=== PATIENT | female | born 1985 | race Caucasian/White ===

== ENCOUNTER 2023-04-25 09:38 | Outpatient (OUT) | payer BC, OTHER, SELFPAY ==
--- NOTE | 2023-04-25 09:44 | US_ITS ---
The [address] [address] Patient Name: RAQUEL BRAR MRN: [id number] date: 1985 Sex: F Assigned Patient Location: Current Patient Location: [facility] Accession/Order Number: [id number] Exam Date: 04/25/2023 09:48 Report Date: 04/25/2023 12:20 At the request of: CHANDRIKA LEE Procedure: US renal bladder EXAM: US renal bladder HISTORY: Acute Cystitis With Hematuria N30.01 COMPARISON: None. TECHNIQUE: Ultrasound of the kidneys and urinary bladder. FINDINGS: The right kidney measures 9.5 x 5.1 x 5.2 cm and contains multiple echogenic foci, largest measuring up to 0.4 cm. The left kidney measures 13.4 x 4.9 x 5.9 cm and contains multiple echogenic foci, largest measuring up to 0.4 cm. This hydronephrosis. The visualized urinary bladder appears normal. Prevoid volume was 454.2 cc. Post void volume was 13.9 cc. US/US renal bladder IMPRESSION: Bilateral nephrolithiasis without hydronephrosis. Electronically authenticated by: GEORGE ADKINS Date: 04/25/2023 12:20
== END 2023-04-25 09:39 | disposition home or self-care (01) ==
LOC: US 09:38
PROVIDERS: PCP Family Medicine; Visit Provider Family Medicine
DX: N20.0 Calculus of kidney (principal); N30.01 Acute cystitis with hematuria
CPT/HCPCS: 74018; 76770

== ENCOUNTER 2023-04-25 10:39 | Outpatient (OUT) | payer BC, OTHER, SELFPAY ==
--- NOTE | 2023-04-25 10:52 | XR_ITS ---
The [address] [address] Patient Name: RAQUEL BRAR MRN: [id number] date: 1985 Sex: F Assigned Patient Location: [facility] Current Patient Location: [facility] Accession/Order Number: [id number] Exam Date: 04/25/2023 11:05 Report Date: 04/25/2023 11:26 At the request of: MARY BALLESTEROS Procedure: XR abdomen 1V EXAM: XR abdomen 1V HISTORY: Kidney Stones N20.0 COMPARISON: None. TECHNIQUE: AP view of the abdomen. FINDINGS: Nonobstructive bowel gas pattern is noted. Multiple surgical jeff are noted across the abdomen. There is no suspicious calcification. The osseous structures are intact. XR/XR abdomen 1V IMPRESSION: Nonobstructive bowel gas pattern. No suspicious renal calcification. Electronically authenticated by: GEORGE ADKINS Date: 04/25/2023 11:26
== END 2023-04-25 10:40 | disposition home or self-care (01) ==
LOC: RAD 10:43
PROVIDERS: PCP Family Medicine; Visit Provider Physician Assistant
DX: N20.0 Calculus of kidney (principal)
CPT/HCPCS: 74018

== ENCOUNTER 2023-05-05 09:28 | Outpatient (OUT) | payer BC, OTHER, SELFPAY ==
--- NOTE | 2023-05-05 09:36 | CT_ITS ---
[address] [address] Patient Name: RAQUEL BRAR MRN: [id number] date: 1985 Sex: F Assigned Patient Location: CT Current Patient Location: Accession/Order Number: [id number] Exam Date: 05/05/2023 10:30 Report Date: 05/06/2023 06:49 At the request of: CHANDRIKA LEE Procedure: CT abdomen pelvis wo con EXAMINATION: CT abdomen pelvis wo con HISTORY: Crohn's Disease K50.90, Abdominal Pain R10.9 ; bilateral flank pain, right greater than left COMPARISON: CT abdomen pelvis 12/22/2021 TECHNIQUE: Axial, Coronal, and Sagittal images were obtained without and/or with IV contrast as indicated by examination type. Dose reduction techniques were achieved by using automated exposure control and/or adjustment of mA and/or kV according to patient size and/or use of iterative reconstruction technique. FINDINGS: LUNG BASES: No visible pulmonary or pleural disease. LIVER: No enlargement, atrophy, suspicious density, or significant focal lesion. BILIARY: Cholecystectomy. PANCREAS: No lesion, fluid collection, or abnormal duct dilatation. SPLEEN: No enlargement or focal lesion. ADRENALS: No mass or enlargement. KIDNEYS: Mild right hydronephrosis and hydroureter without appreciable ureteral stones. Several calcifications within right kidney, largest is within the renal pelvis, 10 mm. Stable mild atrophy/asymmetry of right kidney. BOWEL/MESENTERY: Prior distal small bowel surgery. No visible mass, obstruction, or bowel wall thickening. AORTA/VASCULAR: No aneurysm or dissection. RETROPERITONEUM: No mass or adenopathy. LYMPH NODES: No adenopathy. URINARY BLADDER: No visible focal wall thickening, lesion, or calculus. PELVIC ORGANS: IUD within fundal endometrial cavity. Geographic shaped fluid collection within right lower quadrant lateral to the ovary approximately 7.9 x 6.9 x 2.7 cm. 1.9 cm cyst within right ovary. ABDOMINAL WALL: No mass or hernia. BONES: No bony lesion or fracture. OTHER: Negative. CT/CT abdomen pelvis wo con IMPRESSION: 1. Mild right hydronephrosis and hydroureter without any ureteral or bladder stones at this time; possibly from a recently passed stone. There are nonobstructing stones within the kidney, largest is 10 mm within the renal pelvis. 2. Evidence of prior distal small bowel surgery; no acute bowel findings. 3. Moderate size geographic shaped free fluid collection within right lower quadrant, also seen on prior study suggesting chronic seroma. 4. Right ovary contains a 1.9 cm cyst versus dominant follicle of questionable clinical significance. Electronically authenticated by: ERIC HOBBS Date: 05/06/2023 06:49
== END 2023-05-05 09:29 | disposition home or self-care (01) ==
LOC: CT 09:29
PROVIDERS: PCP Family Medicine; Visit Provider Family Medicine
DX: R10.9 Unspecified abdominal pain (principal); K50.90 Crohn's disease, unspecified, without complications; N13.30 Unspecified hydronephrosis
CPT/HCPCS: 74176

== ENCOUNTER 2023-05-17 10:33 | Outpatient (OUT) | payer BC, OTHER, SELFPAY ==
[2023-05-17 11:06] LABS: Basophils Percent Auto 0.3 % (0.2-2.0); Eosinophils Absolute Auto 0.2 10^3/uL (0.0-0.7); Eosinophils Percent Auto 2.7 % (0.9-7.0); Hematocrit 38.6 % (36.0-48.0); Hemoglobin 12.6 g/dL (12.0-16.0); Immature Granulocytes Abs Auto 0.02 10^3/uL (0.00-0.03); Immature Granulocytes Pct Auto 0.3 % (0.0-0.5); Lymphocytes Absolute Auto 1.9 10^3/uL (1.2-3.8); Lymphocytes Percent Auto 27.6 % (20.5-60.0); Mean Corpuscular HGB Conc 32.6 g/dL (29.9-35.2); Mean Corpuscular Hemoglobin 29.3 pg (26.7-34.0); Mean Corpuscular Volume 89.8 fL (81.0-99.0); Mean Platelet Volume 9.3 fL (9.5-13.5); Monocytes Absolute Auto 0.4 10^3/uL (0.3-0.8); Monocytes Percent Auto 6.6 % (1.7-12.0); Neutrophils Absolute Auto 4.2 10^3/uL (1.4-6.5); Neutrophils Percent Auto 62.5 % (43.0-75.0); Platelet Count 316 10^3/uL (150-450); White Blood Count 6.7 10^3/uL (4.0-11.0)
[2023-05-17 11:15] LABS: INR 0.94; Partial Thromboplastin Time 26.7 sec (22.3-36.2)
[2023-05-17 13:23] LABS: Anion Gap 13.7; BUN Creatinine Ratio 19.3; Calcium 8.8 mg/dL (8.5-10.1); Carbon Dioxide 26.3 mmol/L (21.0-32.0); Chloride 104 mmol/L (98-107); Estimated GFR (African America >60 (>=60); Estimated GFR (Non-African Ame >60 (>=60); Glucose 92 mg/dL (74-106); Sodium 140 mmol/L (136-145)
== END 2023-05-17 10:34 | disposition home or self-care (01) ==
PROVIDERS: PCP Family Medicine; Visit Provider Urology
DX: Z01.812 Encounter for preprocedural laboratory examination (principal); N20.0 Calculus of kidney
CPT/HCPCS: 80048; 85025; 85610; 85730

== ENCOUNTER 2023-05-23 08:39 | Day surgery (SDC) | payer BC, OTHER, SELFPAY ==
[2023-05-17 10:53] VITALS: BP 103/60; PULSE 78; RESP 16; TEMP 36.2; O2SAT 98; BMI 24.3
[2023-05-23] VITALS (10 sets, daily range): BP systolic 92–123; BP diastolic 46–77; PULSE 71–96; RESP 12–22; TEMP 36.1–36.2; O2SAT 96–99; BMI 24.4
[2023-05-23] MEDS: LACTATED RINGER'S SOLUTION 1,000 ML 50 ML IV ×2 (09:12→13:03)
[2023-05-23 09:15] LABS: HCG Qualitative NEGATIVE (NEGATIVE)
[2023-05-23] MEDS: SCOPOLAMINE 1 MG/3 DAYS TRANSDERM PATCH 1 PATCH TD (10:06)
[2023-05-23] MEDS: GENTAMICIN SULFATE 120 MG in 0.9 % SODIUM CHLORIDE 100 ML 206 MG IV (11:01)
[2023-05-23] MEDS: IOHEXOL 300 MG/ML - 50 ML BTL INJ (12:03)
--- NOTE | 2023-05-23 12:41 | P.URON_ITS ---
Urology Surgery Operative Note Operative Note Procedure Date: 05/23/23 Time Out Performed: yes Pre-op Diagnosis: right renal calculi Post-op Diagnosis: same as pre-op Procedures performed: #1. Cystoscopy. #2. Right retrograde pyelogram. #3. Right rigid ureteral dilation. #4. Right ureteroscopy. #5. Right pyeloscopy. #6. Holmium laser lithotripsy of 2, greater than 1 cm right renal calculi. #7. Placement of 6 [place] variable length right ureteral stent Anesthesia: General-LMA Primary Surgeon: Vasile Toribio Complications: non- Estimated blood loss (mL): 5 Findings: no ureteral calculi. 2, one to 2 cm right renal calculi Specimens: non- Indications for Procedures: this lady has a long history of recurrent nephrolithiasis. She was found to have right sided stones at her UPJ and in her ipsilateral kidney. She now presents for cystoscopy, ureteroscopy, stone manipulation and right stent placement. She has signed an informed consent after risks were explained. Detailed description of Procedure: The patient was brought to the operating room and placed on the operating room table in the supine position. SCDs were placed on the lower extremities and turned on and functioning during the entire case. Timeout was done by all parties in the room. We all agreed upon the patient's identification and the planned procedures for this patient. Genn. anesthesia was then administered. The patient was then repositioned into the modified dorsal lithotomy position. All pressure points were satisfactorily padded. Genitalia were sterilely prepped and draped in usual fashion.I started by passing a 22 [place] Olympus cystoscope per urethra and into the bladder. Careful panendoscopy revealed no evidence of any tumors stones or mucosal lesions. While using fluoroscopy I could see stones in her right kidney. I then passed the 8 [place] cone-tipped catheter and cannulated the right ureter. Contrast was injected in a retrograde manner. The ureter lyndsay eared clear. The stones were in the lower pole calyces. I then passed a Glidewire through the scope and passed it into the right ureter up to the right kidney. An 8 and 10 [place] rigid dilator were used to dilate the distal ureter. The scope was removed. I then passed in 05/09 ureteral access sheath over the wire and up the ureter to the L5 level. The wire and stylette were removed. I then passed a flexible ureteroscope into the access sheath and into the ureter. I then ascended up the uretter and then did pyeloscopy. I scoped in the upper mid and lower pole calyces. Her stones were in the 2 lower most calyces. I started in the lowest calyces, this was the largest stone. I then passed a 272 ? holmium laser fiber through the scope and made contact with the stone. While in the dusting mode I started at 7 W and went up to 9 W. I was able to totally dust the stone. Minimal bleeding occurred towards the end. I then went to the upper of the 2 lower pole calyces and similarly dusted this large stone. One could no longer see any stone fluoroscopically. The ureteroscope was removed. I then passed the Glidewire through the access sheath into the kidney and the sheath was then removed. The cystoscope was backloaded over the wire and passed into the bladder. I then slid a 6 [place] variable length ureteral stent over the wire up into the kidney. The wire was removed and there were good curls in the kidney and in the bladder. The bladder was drained of its contents and the scope was removed. She was then transferred to a [facility] bed and wheeled to the PACU in stable condition. She'll be discharged to home with a prescription for Ceftin near 300 mg daily #10.
== END 2023-05-23 13:31 | disposition home or self-care (01) ==
PROVIDERS: PCP Family Medicine; Visit Provider Urology
PROC: (CPT 918; principal; 2023-05-23 09:55)
DX: N13.2 Hydronephrosis with renal and ureteral calculous obstruction (principal); D64.9 Anemia, unspecified; I25.10 Atherosclerotic heart disease of native coronary artery without angina pectoris; Z86.718 Personal history of other venous thrombosis and embolism; K58.9 Irritable bowel syndrome, unspecified; Z87.442 Personal history of urinary calculi; N18.9 Chronic kidney disease, unspecified; Z87.440 Personal history of urinary (tract) infections; Z22.358 Carrier of other Enterobacterales; Z90.49 Acquired absence of other specified parts of digestive tract; R35.0 Frequency of micturition; N32.89 Other specified disorders of bladder; Z79.899 Other long term (current) drug therapy; K21.9 Gastro-esophageal reflux disease without esophagitis; I12.9 Hypertensive chronic kidney disease with stage 1 through stage 4 chronic kidney disease, or unspecified chronic kidney disease
CPT/HCPCS: 52356; 36415; 74420; 84703; 99999; J2704; Q9967

== ENCOUNTER 2023-07-19 13:07 | Outpatient (OUT) | payer BC, OTHER, SELFPAY ==
--- OUTSIDE RECORDS SUMMARY | 2023-07-19 13:13 | XMS_ITS | CCD ---
Author Name Unknown Address [id number] [place] [address] Organization [facility] Care Team Providers Care [facility] Name Role Phone Chandrika Lee Primary Care Provider Chandrika Lee Primary Care Physician MD Chandrika Lee Primary Care Provider DO Dominik Vanegas Emergency Provider DO Jaime Rodriguez Emergency Provider MD Jessica Akhtar Admit Provider MD Jessica Akhtar Attending Provider MD Be Azul Other Provider MD Chandrika Lee Primary Care Provider DO Dominik Vanegas Emergency Provider [phone] DO Jaime Rodriguez Emergency Provider MD Jessica Akhtar Admit Provider [phone] MD Jessica Akhtar Attending Provider MD Be Azul Other Provider MELONY Hu Emergency Provider MD Jarad Mcmillan Admit Provider MD Finn Vo Other Provider MD Noman Armando Emergency Provider MD Chandrika Lee Attending Provider MD Be Azul Attending Provider MD Chandrika Lee Primary Care Provider [phone] MD Jessica Akhtar Attending Provider [phone] MD Be Azul Other Provider DO Carter Lewis Attending Provider Chandrika Lee Unavailable Unavailable Unavailable MD Chandrika Lee Primary Care Provider [phone] Perlita Lawrence Referring Unavailable Hoderik, Dr. Chandrika Tineo Primary Care Unavail able Perlita Lawrence Attending Unavailable Perlita Lawrence Referring Unavailable Hoderik, Dr. Chandrika Tineo Primary Care Unavail able Perlita Lawrence Attending Unavailable PERLITA LAWRENCE Attending Unavailable Hoy, Dr. Chandrika Tineo Primary Care Unavail able HOY ., DR COBOS Primary Care Unavailable SCHRADER ., DR ARAUJO Admitting Unavailable SCHRADER ., DR ARAUJO Attending Unavailable HOY ., DR COBOS Primary Care Unavailable HOY ., DR COBOS Consulting Unavailable HOY ., DR COBOS Attending Unavailable HOY ., DR COBOS Admbrianna Unavailable SCHRADER ., DR ARAUJO Admitting Unavailable HOY ., DR COBOS Consulting Unavailable HOY ., DR COBOS Primary Care Unavailable SCHRADER ., DR ARAUJO Attending Unavailable SCHRADER ., DR ARAUJO Consulting Unavailable HOY ., DR COBOS Consulting Unavailable HOY ., DR COBOS Attending Unavailable HOY ., DR COBOS Admitting Unavailable HOY ., DR COBOS Primary Care Unavailable HAY ., DR BERGMAN Consulting Unavailable AKSHAT CORBETT Consulting Unavailable HOY ., DR COBOS Primary Care Unavailable SCHRADER ., DR ARAUJO Admitting Unavailable SCHRADER ., DR ARAUJO Consulting Unavailable SCHRADER ., DR ARAUJO Attending Unavailable WEST, DR DEVYN Nunn Consulting Unavailable DEV GALLEGOS Consulting Unavailable ERIC GARCIA Consulting Unavailable TISH KENDALL Admitting Unavailable TISH KENDALL Attending Unavailable HOY ., DR COBOS Primary Care Unavailable WEST, DR DEVYN Nunn Consulting Unavailable TISH KENDALL Attending Unavailable TISH KENDALL Admitting Unavailable HOY ., DR COBOS Primary Care Unavailable TISH KENDALL Consulting Unavailable HOY ., DR COBOS Primary Care Unavailable HOY ., DR COBOS Consulting Unavailable HOY ., DR COBOS Attending Unavailable HOY ., DR COBOS Admitting Unavailable HOY ., DR COBOS Primary Care Unavailable HOY ., DR COBOS Consulting Unavailable HOY ., DR COBOS Attending Unavailable HOY ., DR COBOS Admitting Unavailable HOY ., DR COBOS Primary Care Unavailable SCHRADER ., DR ARAUJO Admitting Unavailable SCHRADER ., DR ARAUJO Consulting Unavailable SCHRADER ., DR ARAUJO Attending Unavailable [place], DR DEVYN Nunn Consulting Unavailable Semaskiene, Jessica Admitting Unavailable SemaskieneJessica Attending Unavailable Hoy, Chandrika M Primary Care Unavailable BrianBe guerrero R Consulting Unavailabl e Hoy, Chandrika M Primary Care Unavailable Hoy, Chandrika M Attending Unavailable Hoy, Chandrika M Admitting Unavailable LaffaCarter more Attending Unavailable Hoy, Chandrika M Primary Care Unavailable Laffaderik, Carter Admitting Unavailable Hoy, Chandrika M Primary Care Unavailable Carter Lewis Admitting Unavailable Carter Lewis Attending Unavailable Carter Lewis Attending Unavailable Gagany, Chnadrika M Primary Care Unavailable Carter Lewis Admitting Unavailable Be Azul Attending Unavailabl e Hoy, Chandrika M Primary Care Unavailable Be Azul Admitting Unavailabl e Hoy, Chandrika M Primary Care Unavailable Van Rosen Admitting Unavailable TobypaVan Attending Unavailable Hoy, Chandrika M Primary Care Unavailable Noman Armando Admitting Unavailable Noman Armando Attending Unavailable Hoy, Chandrika M Primary Care Unavailable Dominik Vanegas Admitting Unavailable Dominik Vanegas Attending Unavailable SandeepskgurpreeteJessica Attending Unavailable Hoy, Chandrika M Primary Care Unavailable Jessica Akhtar Admitting Unavailable Jessica Akhtar Attending Unavailable Finn Vo Consulting Unavailable Hoy, Chandrika M Primary Care Unavailable Jarad Mcmillan Admitting Unavailable Be Azul Consulting UnavailMELONY Portillo Attending UnavailMELONY Gardner Attending Unavailab MELONY Sage Attending Unavailab MELONY Sage Admitting Unavailab Van Linder Attending Unavailable Van SCHRADER Attending Unavailable Van SCHRADER Attending Unavailable MELONY KENDALL Attending Unavailab le Allergies Allergy Classification Reported Allergen(s) Allergy Type Date of Onset Reaction(s) Facility Opioid Agonists (2 sources) Morphine Drug Allergy 4 Vomiting [facility] (11 sources) Amoxicillin / Clavulanate; Translations: [amoxicillin-clav ulanate] Drug Allergy Unknown (qualifier value) [facility] (6 sources) iron polysaccharide; Translations: [iron polysaccharide] Drug Allergy Unknown (qualifier value) [facility] (15 sources) levoFLOXacin; Translations: [levofloxacin] Drug Allergy 2 Eruption (morphologic abnormality), Unknown (qualifier value) [facility] (15 sources) Morphine; Translations: [morphine] Drug Allergy 2 Unknown (qualifier value) [facility] (20 sources) traMADol; Translations: [tramadol] Drug Allergy 2 Unknown (qualifier value) [facility] (10 sources) Amoxicillin; Translations: [amoxicillin] Drug Allergy 2 Diarrhea [facility] (10 sources) Clavulanate; Translations: [clavulanic acid] Drug Allergy 2 [facility] (10 sources) Sodium ferric gluconate complex; Translations: [sodium ferric gluconate complex] Drug Allergy 2 [facility] (10 sources) Sucrose; Translations: [sucrose] Drug Allergy 2 [facility] (8 sources) Vancomycin; Translations: [vancomycin] Drug Allergy 2 natalie [facility] (6 sources) Vancomycin Cross Reactors; Translations: [Vancomycin Cross Reactors] Allergy to drug (finding) [facility] 250 DO Work Phone: (5 sources) Iron Dextran SOLN; Translations: [Iron Dextran SOLN] Allergy to drug (finding) [facility] 250 DO Work Phone: (1 source) Amoxicillin / Clavulanate Drug Allergy 7 [facility] (2 sources) levoFLOXacin Drug Allergy 7 [facility] (2 sources) Morphine Drug Allergy [facility] (2 sources) NSAIDs Drug allergy (disorder) 7 [facility] (2 sources) traMADol Drug Allergy 7 [facility] (1 source) Nikunj-Iron Drug allergy (disorder) 0 [facility] (1 source) levoFLOXacin Drug Allergy 3 [facility] (1 source) Morphine Drug Allergy 3 [facility] (1 source) traMADol Drug Allergy 3 [facility] Medications Current Medications Medication Drug Class(es) Dates Sig (Normalized) Sig (Original) acetaminophen 250 mg / aspirin 250 mg / caffeine 65 mg oral tablet (9 sources) Platelet Aggregation Inhibitor, Nonsteroidal Anti-inflammatory Drug, Central Nervous System Stimulant, Methylxanthine Start: 07-29-2019 Aspirin-Acetamin ophen-Caffeine (Excedrin Migraine) 250-250-65 mg Tablet Active 1 TAB PO As Directed July 29, 2019 12:00am acetaminophen 325 mg / HYDROcodone bitartrate 5 mg oral tablet (18 sources) Opioid Agonist Start: 08-09-2022 take 1 tablet by mouth every four hours Hydrocodone-Acet aminophen Active 1 TAB PO Q4H 42 7 August 09, 2022 Start: 08-02-2022 take 2 tablets by mo uth every six hours Hydrocodone-Acetaminophen Active 2 TAB P O Q6H 40 7 August 17, 2022 Start: 05-30-2022 take 1 tablet by aguilar th twice daily Hydrocodone-Acetaminophen Active 1 TAB P O Twice daily May 30, 2022 12:00am Start: 04-10-2017 End: 05-12-2022 take 1 tablet by mouth twice daily Hydrocodone-Acetaminophen ([place]) 5-325 mg Tablet Discontinued 1 TAB PO Twice daily April 09, 2017 11:00pm May 12, 2022 4:21pm Start: 04-10-2017 take 1 tablet by aguilar th every four hours Hydrocodone-Acetaminophen ([place]) 5-325 mg Tablet Active 1 TAB PO Q4H April 10, 2017 12:00am cefdinir 300 mg oral capsule (12 sources) Cephalosporin Antibacterial Start: 01-31-2021 End: 02-17-2021 take 300 mg by mouth twice daily cefdinir 300 mg, Oral, BID Start Date: 02/04/21 Status: Ordered cholestyramine resin 4000 mg powder for oral suspension (8 sources) Bile Acid Sequestrant Start: 05-12-2022 End: 07-19-2022 take 1 dose by mouth once daily Cholestyramine (With Sugar) Active 4 GM PO Daily July 19, 2022 3:36pm administer w/meal; avoid other meds within 1hr before or 4-6hr after dose cyproheptadine hydrochloride 4 mg oral tablet (20 sources) Start: 04-10-2017 take 1 tablet by mouth twice daily cyproheptadine 4 mg Tab 4 mg = 1 tab(s), Oral, BID Start Date: 02/04/21 Status: Ordered D-Mannose (9 sources) Start: 03-27-2022 take 1500 mg by mouth twice daily D-Mannose Active 1500 MG PO Twice daily March 26, 2022 11:00pm Start: 03-27-2022 take 1500 mg by mout h twice daily D-Mannose Active 1500 MG PO Twice daily March 27, 2022 12:00am dibucaine 0.01 mg/mg rectal ointment (1 source) Standardized Chemical Allergen Start: 08-17-2022 Dibucaine Active 1 APPLIC AZ Three times daily August 17, 2022 12:00am dicyclomine hydrochloride 20 mg oral tablet (20 sources) Anticholinergic Start: 04-25-2019 take 20 mg by mouth twice daily Bentyl 20 mg, Oral, BID Start Date: 02/04/21 Status: Ordered 24 hr ferrous sulfate 142 mg extended release oral tablet (16 sources) Start: 04-01-2022 Ferrous Sulfat e (Slow Fe) 142 mg (45 mg iron) tablet extended release Active 284 MG PO Every 48 hours March 31, 2022 11:00pm Start: 07-29-2019 End: 04-02-2022 take 1 tablet by mouth twice daily Ferrous Sulfate (Iron) 325 mg (65 mg iron) Tablet Discontinued 325 MG PO Twice daily July 29, 2019 12:00am April 02, 2022 1:26pm FLUoxetine 40 mg oral capsule (20 sources) Serotonin Reuptake Inhibitor Start: 04-10-2017 take 1 capsule by mouth once daily Prozac 40 mg Cap 40 mg = 1 cap(s), Oral, Daily Start Date: 02/04/21 Status: Ordered folic acid 1 mg oral tablet (5 sources) Start: 02-04-2021 take 1 tablet by mouth once daily folic acid 1 mg Tab 1 mg = 1 tab(s), Oral, Daily Start Date: 02/04/21 Status: Ordered hyoscyamine sulfate 0.125 mg oral tablet (12 sources) Start: 02-04-2021 take 0.125 mg by mouth twice daily Anaspaz 0.125 mg, Oral, BID Start Date: 02/04/21 Status: Ordered Start: 01-21-2021 End: 02-17-2021 take 2 tablets under the tongue every twelve hours Hyoscyamine Sulfate (Anaspaz) 0.125 mg Tablet,Disintegrating Discontinued 0.25 MG SUBLINGUAL Q12H January 20, 2021 11:00pm February 17, 2021 2:10pm Iron 100 Plus (5 sources) Start: 02-04-2021 Iron 100 Plus Oral, Daily, Refill(s) 0 Start Date: 02/04/21 Status: Ordered L. Gasseri-B. Bifidum-B Long um ([facility]) 1.5 billion cell Capsule (9 sources) Start: 04-10-2017 L. Gasseri-B. Bifidum-B Longum ([facility]) 1.5 billion cell Capsule Active 1.5 TAB PO Daily April 09, 2017 11:00pm Start: 04-10-2017 L. Gasseri-B. Bifidum-B Longum ([facility]) 1.5 billion cell Capsule Active 1.5 TAB PO Daily April 10, 2017 12:00am lidocaine 0.05 mg/mg topical ointment (1 source) Antiarrhythmic, Amide Local Anesthetic Start: 08-09-2022 Lidocaine Active 1 APPLIC TOPICAL Twice daily August 09, 2022 12:00am loperamide hydrochloride 2 mg oral capsule (8 sources) Opioid Agonist Start: 05-12-2022 End: 07-19-2022 take 2 mg by mouth every three hours Loperamide Active 2 MG PO Q3H July 19, 2022 3:36pm magnesium oxide 400 mg oral tablet (8 sources) Start: 03-31-2022 take 400 mg by mouth once daily Magnesium Oxide Active 400 MG PO Daily March 30, 2022 11:00pm Multivitamin preparation (9 sources) Start: 03-27-2022 take 1 tablet by mouth twice daily Multivitamin Active 1 TAB PO Twice daily March 26, 2022 11:00pm Start: 03-27-2022 take 1 tablet by aguilar th twice daily Multivitamin Active 1 TAB PO Twice daily March 27, 2022 12:00am omeprazole 40 mg oral tablet (12 sources) Proton Pump Inhibitor Start: 02-04-2021 take 40 mg by mouth once daily Prilosec 40 mg, Oral, Daily Start Date: 02/04/21 Status: Ordered Start: 01-29-2021 End: 04-02-2022 take 40 mg by mouth once daily Omeprazole Discontinued 40 MG PO Daily January 28, 2021 11:00pm April 02, 2022 1:26pm 24 hr oxybutynin chloride 10 mg extended release oral tablet (3 sources) Cholinergic Muscarinic Antagonist Start: 02-04-2021 take 1 tablet by mouth once daily oxybutynin 10 mg ER Tab 10 mg = 1 tab(s), Oral, Daily, # 30 tab(s), Refills(s) 0, Pharmacy: [facility] [id number], 160, cm, 02/04/21 15:55:00 EDT, Height/Length Dosing, 57.3, kg, 02/04/21 15:55:00 EDT, Weight Dosing Start Date: 02/04/21 Status: Ordered [employer] (5 sources) Start: 02-04-2021 [employer] Oral, Daily, Refill(s) 0 Start Date: 02/04/21 Status: Ordered Potassium Acetate (5 sources) Start: 12-08-2021 potassium acet ate Refills(s) 0 Start Date: 12/08/21 Status: Ordered potassium chloride 20 meq oral tablet (20 sources) Start: 10-06-2022 Potassium Chlo ride (Eqv-K-Tab) 20 mEq oral tablet, extended release Refills(s) 0 Start Date: 10/06/22 Status: Ordered Start: 03-31-2022 take 1 tablet by aguilar th twice daily Potassium Chloride ER 20 MEQ Oral Tablet Extended Release Take 1 tablet twice daily Quantity: 180 Refills: 3 Ordered: 29-Jun-2022 DO Start : 29-Jun-2022 Active Start: 02-02-2021 End: 07-15-2021 take 20 mEq by mouth once daily Potassium Chloride Dis continued 20 MEQ PO Daily February 01, 2021 11:00pm July 15, 2021 8:11am SUMAtriptan 100 mg oral tablet (14 sources) Serotonin-1b and Serotonin-1d Receptor Agonist Start: 02-04-2021 take 100 mg by mouth once Imitrex 100 mg, Oral, Once Start Date: 02/04/21 Status: Ordered Start: 01-30-2021 take 1 tablet by aguilar th every two hours Sumatriptan Succinate (Imitrex) 100 mg tablet Active 100 MG PO As Directed January 29, 2021 11:00pm Take 1 tablet by mouth at onset of headache; may repeat 1 tablet in 2 hours if needed Vitamin B Complex oral capsule (5 sources) Start: 02-04-2021 Vitamin B Comp navneet oral capsule Oral, Daily, Refill(s) 0 Start Date: 02/04/21 Status: Ordered vitamin b12 1 mg/ml injectable solution (16 sources) Vitamin B12 Start: 04-01-2022 End: 07-19-2022 Cyanocobalamin (Vitamin B-12) Active 1000 MCG IM every month July 19, 2022 3:36pm 1000 mcg IM daily x5 days then q. weekly x4 weeks then q. monthly Vitamin Deficien cy System-B12 1000 MCG/ML Injection Kit once weekly Quantity: 0 Refills: 0 Ordered: 26-Jul-2022 DO Active Completed/Discontinued Medications Medication Drug Class(es) Dates Sig (Normalized) Sig (Original) cephalexin 250 mg oral capsule (20 sources) Cephalosporin Antibacterial Start: 10-06-2022 take 1 tablet by mouth once Keflex 250 mg Cap 250 mg = 1 cap(s), Oral, Once, 1 tab after sexual activity, # 15 tab(s), Refills(s) 3, Pharmacy: [id number], 160, cm, 10/06/22 14:54:00 EDT, Height/Length Dosing, 58, kg, 10/06/22 14:54:00 EDT, Weight Dosing Start Date: 10/06/22 Status: Ordered Start: 05-30-2022 End: 06-14-2022 take 1000 mg by mouth twice daily Cephalexin Discontinued 1000 MG PO Twice daily 21 01May 30, 2022 12:00am June 14, 2022 1:49pm Start: 03-27-2022 End: 03-31-2022 take 500 mg by mouth twice daily Cephalexin Discontinued 500 MG PO Twice daily 15 04March 26, 2022 11:00pm March 31, 2022 12:17pm Start: 10-24-2021 End: 03-27-2022 take 1000 mg by mouth twice daily Cephalexin Discontinued 1000 MG PO Twice daily 21 01October 23, 2021 11:00pm March 27, 2022 12:05pm eluxadoline 100 mg oral tablet (9 sources) mu-Opioid Receptor Agonist Start: 04-10-2017 End: 04-25-2019 take 1 tablet by mouth twice daily Eluxadoline (Viberzi) 100 mg Tablet Discontinued 100 MG PO Twice daily April 09, 2017 11:00pm April 25, 2019 5:13pm ertapenem 1000 mg injection (7 sources) Penem Antibacterial Start: 04-02-2022 End: 05-09-2022 take 1 g intravenously once daily Ertapenem (Invanz) 1 gram Recon Soln Discontinued 1 GM IV Daily April 01, 2022 11:00pm May 09, 2022 2:33pm 21 day ethinyl estradiol 0.218834 mg/hr / etonogestrel 0.005 mg/hr vaginal system (1 source) Progestin, Estrogen Start: 08-30-2006 End: 07-10-2013 NUVARING 0.12 MG -0.015 MG/24 HR VAGINAL Indications: Unspecified contraceptive management Use as directed 0 0 08/30/2006 07/10/2013 Discontinued Comment on above: Use as directed Fosfomycin Tromethamine (5 sources) Start: 05-12-2022 End: 05-30-2022 take 3 g by mouth once Fosfomycin Tromethamine Discontinued 3 GM PO Once May 12, 2022 12:00am May 30, 2022 1:29pm administer 3 hours before surgery/procedure hydrocortisone acetate 25 mg rectal suppository (5 sources) Corticosteroid Start: 05-12-2022 End: 05-30-2022 Hydrocortisone Acetate Discontinued 25 MG AZ Twice daily 14 03May 12, 2022 12:00am May 30, 2022 1:29pm lactobacillus acidophilus 16 mg oral capsule (6 sources) Acidophilus Oral Capsule TAKE DIRECTED. Quantity: 0 Refills: 0 Ordered: 26-Jul-2022 DO Active methylPREDNISolone 4 mg oral tablet (9 sources) Corticosteroid Start: 03-27-2022 End: 04-02-2022 take 1 tablet by mouth once Methylprednisolone (Medrol (Ryne)) 4 mg tablets,dose pack Discontinued 0 PO .COMPLEX March 26, 2022 11:00pm April 02, 2022 1:26pm orally per package directions, Started Tuesday, should end Tuesday metoprolol tartrate 50 mg oral tablet (20 sources) beta-Adrenergic Tino Start: 06-29-2022 take 1 tablet by mouth once daily Metoprolol Tartrate 50 MG Oral Tablet TAKE 1 TABLET EVERY 12 HOURS DAILY. Quantity: 180 Refills: 3 Ordered: 29-Jun-2022 DO Start : 29-Jun-2022 Active Start: 01-20-2021 take 1 tablet by aguilar th twice daily Metoprolol tartrate 50 mg Tab 50 mg = 1 tab(s), Oral, BID Start Date: 02/04/21 Status: Ordered Start: 04-10-2017 End: 01-20-2021 take 50 mg by mouth twice daily Metoprolol Succinate Discontinued 50 MG PO Twice daily April 09, 2017 11:00pm January 20, 2021 11:02am nitrofurantoin, macrocrystals 25 mg / nitrofurantoin, monohydrate 75 mg oral capsule (20 sources) Nitrofuran Antibacterial Start: 03-30-2022 End: 04-02-2022 take 1 capsule by mouth twice daily at mealtime Nitrofurantoin Monohyd Macro 100 MG Oral Capsule take 1 capsule by mouth twice a day WITH A MEAL or FOOD Quantity: 14 Refills: 0 Ordered: 30-Mar-2022 DO Start : 30-Mar-2022 Active ondansetron 8 mg disintegrating oral tablet (20 sources) Serotonin-3 Receptor Antagonist Start: 10-24-2021 End: 03-31-2022 take 8 mg by mouth every eight hours Ondansetron Discontinued 8 MG PO Q8H 10 October 23, 2021 11:00pm March 31, 2022 12:21pm Start: 02-04-2021 take 1 tablet by aguilar th every eight hours Zofran 4 mg Tab 4 mg = 1 tab(s), Oral, q8hr Start Date: 02/04/21 Status: Ordered Start: 01-20-2021 take 8 mg by mouth e very four to six hours Ondansetron Active 8 MG PO EVERY 4-6 HOURS January 19, 2021 11:00pm Start: 01-20-2021 take 4 mg by mouth e very four to six hours Ondansetron Active 4 MG PO EVERY 4-6 HOURS January 20, 2021 12:00am promethazine hydrochloride 25 mg oral tablet (9 sources) Phenothiazine Start: 07-15-2021 End: 03-27-2022 take 25 mg by mouth three times daily Promethazine Discontinued 25 MG PO Three times daily 14 01July 15, 2021 12:00am March 27, 2022 12:07pm rivaroxaban 15 mg oral tablet (18 sources) Factor Xa Inhibitor Start: 07-29-2019 End: 01-19-2021 Rivaroxaban (Xarelto) 15 mg tablet Discontinued 20 MG PO Daily July 29, 2019 7:02am January 19, 2021 12:52pm Start: 04-25-2019 End: 07-29-2019 Rivaroxaban (Xarelto) 15 mg tablet Discontinued 15 MG PO Twice daily 42 April 24, 2019 11:00pm July 29, 2019 7:02am must administer with a meal/food for 21 days. Talk with your Doctor about dosing after 21 days rizatriptan 10 mg oral tablet (9 sources) Serotonin-1b and Serotonin-1d Receptor Agonist Start: 07-29-2019 End: 02-17-2021 Rizatriptan Discontinued 10 MG PO As Directed July 29, 2019 12:00am February 17, 2021 10:47am take on tablet by mouth at onset of headache, may repeat one tab in 2 hours if needed. max of 2 tabs in 24 hours sulfamethoxazole 800 mg / trimethoprim 160 mg oral tablet (9 sources) Dihydrofolate Reductase Inhibitor Antibacterial, Sulfonamide Antimicrobial Start: 01-21-2021 End: 02-02-2021 take 1 tablet by mouth twice daily Sulfamethoxazole- Trimethoprim Discontinued 1 TAB PO Twice daily 19 06January 20, 2021 11:00pm February 02, 2021 7:37am vancomycin 125 mg oral capsule (7 sources) Glycopeptide Antibacterial Start: 04-01-2022 End: 05-09-2022 take 125 mg by mouth four times daily Vancomycin Discontinued 125 MG PO Four times daily 56 March 31, 2022 11:00pm May 09, 2022 2:33pm Problems Active Problems Problem Classification Problem Date Documented Date Episodic/Chronic Abdominal pain (5 sources) Flank pain 04-06-2021 Episodic Bacterial infection; unspecified site (2 sources) Unspecified Escherichia coli [E. coli] as the cause of diseases classified elsewhere; Translations: [Other specified bacterial agents as the cause of diseases classified elsewhere] Onset: 04-21-20 Episodic Biliary tract disease (5 sources) Gallstone 02-04-2021 Episodic Calculus of urinary tract (20 sources) Kidney stone; Translations: [Calculus of kidney] Onset: 01-08-2002-04-2021 Episodic Cardiac dysrhythmias (7 sources) Other specified cardiac arrhythmias; Translations: [Other specified cardiac dysrhythmias] Onset: 03-25-2003-25-2005 Chronic Cardiac dysrhythmias (20 sources) Tachycardia; Translations: [Palpitations] Onset: 10-02-1902-04-2021 Episodic Chronic kidney disease (6 sources) Chronic kidney disease; Translations: [Chronic kidney disease, unspecified] Onset: 01-09-2002-04-2021 Chronic Deficiency and other anemia (20 sources) Anemia; Translations: [Anemia, unspecified] 02-04-2021 Episodic Diseases of white blood cells (1 source) Elevated white blood cell count, unspecified; Translations: [ELEVATED WHITE BLOOD CELL COUNT UNS] Onset: 11-25-19 Chronic Essential hypertension (1 source) Essential (primary) hypertension; Translations: [ESSENTIAL PRIMARY HYPERTENSION] Onset: 11-25-19 Chronic Fever of unknown origin (18 sources) Fever; Translations: [Fever, unspecified] 01-29-2021 Episodic Fluid and electrolyte disorders (20 sources) Hypokalemia; Translations: [Hypokalemia] Onset: 05-09-2003-27-2022 Episodic Headache; including migraine (14 sources) Headache; Translations: [Headache] 02-04-2021 Episodic Nausea and vomiting (9 sources) Nausea and vomiting; Translations: [Nausea with vomiting, unspecified] 10-24-2021 Episodic Other aftercare (9 sources) Drug therapy finding; Translations: [oysterman (current) use of anticoagulants] 07-29-2019 Episodic Other aftercare (1 source) Other correction (current) drug therapy; Translations: [OTH CUSTODIAL CURRENT DRUG THERAPY] Onset: 11-25-19 Episodic Other and ill-defined heart disease (5 sources) Heart disease 02-04-2021 Chronic Other diseases of kidney and ureters (5 sources) Hydronephrosis due to ureteral obstruction 02-04-2021 Episodic Other diseases of kidney and ureters (9 sources) Hydroureteronephrosis ; Translations: [Unspecified hydronephrosis] 01-19-2021 Episodic Other gastrointestinal disorders (14 sources) Irritable bowel syndrome; Translations: [Irritable bowel syndrome without diarrhea] 02-04-2021 Chronic Other nervous system disorders (1 source) Acute postoperative pain; Translations: [Other acute postprocedural pain] 08-09-2022 Episodic Other nutritional; endocrine; and metabolic disorders (1 source) Intestinal disaccharidase deficiency; 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, unspecified] Onset: 10-29-19 04 10-29-2003 Chronic Other nutritional; endocrine; and metabolic disorders (1 source) Hypomagnesemia; Translations: [HYPOMAGNESEMIA] Onset: 11-25-19 Chronic Phlebitis; thrombophlebitis and thromboembolism (15 sources) H/O: thrombosis; Translations: [Deep venous thrombosis] Onset: 11-25-1902-04-2021 Episodic Poisoning by other medications and drugs (1 source) Poisoning by unspecified narcotics, accidental (unintentional), initial encounter; Translations: [POISON UNS NARCOTIC ACC INITIAL ENC] Onset: 11-25-19 Episodic Regional enteritis and ulcerative colitis (20 sources) Crohn's disease; Translations: [Crohn's disease, unspecified, without complications] Onset: 11-25-1902-04-2021 Chronic Residual codes; unclassified (6 sources) History of excision of intestinal structure; Translations: [Personal history of surgery to other organs] Episodic Residual codes; unclassified (6 sources) History of colectomy; Translations: [Other postprocedural status] Episodic Residual codes; unclassified (6 sources) History of excision of small intestine; Translations: [Personal history of surgery to other organs] Episodic Residual codes; unclassified (6 sources) History of clinical finding in subject; Translations: [Personal history of other specified diseases] Episodic Residual codes; unclassified (6 sources) Body mass index 20-24 - normal; Translations: [Body Mass Index between 19-24, adult] Episodic Residual codes; unclassified (2 sources) History of surgical procedure on vein; Translations: [Other specified postprocedural states] 08-02-2022 Episodic Residual codes; unclassified (3 sources) Transient alteration of awareness; Translations: [TRANSIENT ALTERATION OF AWARENESS] Onset: 11-16-19 Episodic Residual codes; unclassified (1 source) Acquired absence of other specified parts of digestive tract; Translations: [ACQ ABSENCE OTH PART DIGESTV TRACT] Onset: 11-25-19 Episodic Septicemia (except in labor) (9 sources) Sepsis; Translations: [Sepsis, unspecified organism] 01-19-2021 Episodic Spondylosis; intervertebral disc disorders; other back problems (9 sources) Backache; Translations: [Dorsalgia, unspecified] 07-15-2021 Episodic Syncope (6 sources) Syncope; Translations: [Syncope and collapse] Onset: 10-02-19 Episodic Unclassified (5 sources) Extended spectrum beta-lactamase producing bacteria carrier Onset: 04-06-2004-09-2021 Comment on above: ESBL E coli in urine 04/06/2021 Unclassified (1 source) Poisoning by unspecified narcotics, accidental (unintentional), initial encounter; Translations: [Poisoning by unspecified narcotics, accidental (unintentional), initial encounter] Onset: 11-16-19 Unclassified (1 source) Encounter for preprocedural laboratory examination; Translations: [Encounter for preprocedural laboratory examination] Onset: 07-19-19 Unclassified (1 source) Hemorrhage of anus and rectum; Translations: [Hemorrhage of anus and rectum] Onset: 06-14-20 Unclassified (1 source) Fever, unspecified; Translations: [Fever, unspecified] Onset: 05-30-20 Urinary tract infections (20 sources) Urinary tract infectious disease; Translations: [Urinary tract infection, site not specified] Onset: 12-09-19 Episodic Urinary tract infections (1 source) Urinary tract infections; Translations: [Urinary tract infection, site not specified] Onset: 04-06-20 Viral infection (9 sources) Disease caused by 2019-nCoV; Translations: [COVID-19] 07-15-2021 Episodic Past or Other Problems Problem Classification Problem Date Documented Da te Episodic/Chronic Acute posthemorrhagic anemia (10 sources) Acute posthemorrhagic anemia; Translations: [Acute posthemorrhagic anemia] Onset: 05-09-2022 05-09-2022 Episodic Conditions associated with dizziness or vertigo (1 source) Dizziness and giddiness; Translations: [Dizziness and giddiness] Onset: 03-27-2022 Episodic Deficiency and other anemia (15 sources) Anemia, unspecified; Translations: [Anemia, unspecified] Onset: 01-07-2022 03-31-2022 Episodic Gastrointestinal hemorrhage (20 sources) Rectal hemorrhage; Translations: [Hemorrhage of anus and rectum] Onset: 05-09-2022 07-29-2019 Episodic Genitourinary symptoms and ill-defined conditions (10 sources) Decreased urine output; Translations: [Anuria and oliguria] Onset: 01-08-2022 07-15-2021 Episodic Hemorrhoids (9 sources) Internal hemorrhoids; Translations: [Other hemorrhoids] Onset: 05-09-2022 05-12-2022 Episodic Intestinal infection (12 sources) Clostridium difficile colitis; Translations: [Enterocolitis due to Clostridium difficile, not specified as recurrent] Onset: 03-31-2022 04-01-2022 Episodic Other complications of ; puerperium affecting management of mother (2 sources) Complication occurring during ; Translations: [Maternal care for other (suspected) abnormality and damage, not applicable or unspecified] Onset: 03-22-2013 03-22-2013 Episodic Other complications of ; puerperium affecting management of mother (1 source) Abnormality of heart; Translations: [Maternal care for other (suspected) abnormality and damage, not applicable or unspecified] Onset: 03-22-2013 03-22-2013 Episodic Other complications of (1 source) growth restriction; Translations: [Maternal care for other known or suspected poor growth, unspecified trimester, not applicable or unspecified] Onset: 07-10-2013 07-10-2013 Episodic Other gastrointestinal disorders (1 source) Personal history of other diseases of the digestive system; Translations: [Personal history of other diseases of the digestive system] Onset: 08-17-2022 Episodic Other nervous system disorders (1 source) Other acute postprocedural pain; Translations: [Other acute postprocedural pain] Onset: 08-02-2022 Episodic Residual codes; unclassified (1 source) Other specified postprocedural states; Translations: [Other specified postprocedural states] Onset: 08-17-2022 Episodic Unclassified (5 sources) Never smoked tobacco; Translations: [Never a smoker] Results Test Name Value Interpretation Reference Range Facility Operative Reporton 3 Operative Report [id number]#1.00TIFF [facility] Consent for Procedure/Surger yon 05-26-2023 Consent for Procedure/Surgery [id number]#1.00TIFF [facility] Provider Letteron 05-26-2023 Provider Letter (Inserted Image. Rajni ble to display) May 26, 2023 RAQUEL CORREA [address] [place] [address] : 1985 To Whom It May Concern, Please excuse above patient from work. Date of Illness: From: 05/23/2023 To: 05/27/2023 May Return to Work On: 05/28/2023 Restrictions: None Comments: Patient had a surgical procedure done on 05/23/[address] Van Schrader. She may return to work 05/28/2303 without restrictions. Sincerely, Executive Urology Specialist [facility] Lab Reportson 05-24-2023 Lab Reports [id number]#1.00TIFF [facility] Operative Reporton 3 Operative Report [id number]#1.00TIFF [facility] Lab Reportson 05-23-2023 Lab Reports [id number]#1.00TIFF [facility] Consent for Procedure/Surger yon 05-13-2023 Consent for Procedure/Surgery [id number]#1.00TIFF [facility] C Urineon 05-12-2023 Bacteria identified Cx Nom (U) Microbiology PROCEDURE: Urine Culture [R1] SOURCE: U CleanCatch BODY SITE: COLLECTED DATE/TIME: 05/10/2023 14:08 EST RECEIVED DATE/TIME: 05/10/2023 19:56 EST START DATE/TIME: 05/10/2023 19:56 EST FREE TEXT SOURCE: TISH KENDALL PA-C, PA-C, TISH Grijalva FINAL REPORTS Final Report [] Verified Date/Time: 05/12/2023 08:45 EST >100,000 cfu/ml Escherichia coli ESBL SUSCEPTIBILITY RESULTS _ LEGEND: S=Susceptible, N/R=Not Reported, Blank=Data not available, or drug not advisable or tested, I=Intermediate, ESBL=Extended spectrum beta-lactamase, R=Resistant, TFG=Thymidine-dependent strain, EVE=Beta-lactamase positive, DIVYA=mcg/m;(mg/L), S*=Predicted susceptible interp, R*=Predicted resistant interp ECESBL Antibiotic DIVYA Dilutn DIVYA Interp Amikacin <=16 S Ampicillin >16 R* Ampicillin/ 16/8 I Sulbactam Aztreonam >16 ESBL Cefazolin >16 R* Cefepime >16 R* Cefoxitin <=8 S Ceftazidime >16 ESBL Ceftazidime/ <=8 S Avibactam Ceftriaxone >32 ESBL Ciprofloxacin <=1 S Ertapenem <=0.5 S Gentamicin <=4 S Levofloxacin <=2 S Meropenem <=1 S Nitrofurantoin <=32 S Piperacillin/ <=16 S Tazobactam Tetracycline <=4 S Tigecycline <=2 S Tobramycin <=4 S Trimethoprim/ <=2/38 S Sulfa Performing Locations R1: This test was performed at: [facility], [address] [place] [address], [address] , , [facility] Comment on above: Performed By: #### 2 [id number] ####[place] [address] Consent for Procedure/Surger yon 05-12-2023 Consent for Procedure/Surgery [id number]#1.00TIFF Normal [facility] Insurance Correspondenceon 1 07-12-2022 Insurance Correspondence [id number]#1.00TIFF Normal [facility] Lab Reportson 05-11-2023 Lab Reports [id number]#1.00TIFF Normal [facility] Lab Reports [id number]#1.00TIFF Normal [facility] RAD - CT Reporton 05-11-2023 RAD - CT Report [id number]#1.00TIFF Josselyn Ayala [facility] Patient Educationon 05-10-20 Patient Education Urology Kidney Stones Kidney stones are rock-like masses that form inside of the kidneys. Kidneys are organs that make pee (urine). A kidney stone may move into other parts of the urinary tract, including: ? The tubes that connect the kidneys to the bladder (ureters). ? The bladder. ? The tube that carries urine out of the body (urethra). Kidney stones can cause very bad pain and can block the flow of pee. The stone usually leaves your body (passes) through your pee. You may need to have a doctor take out the stone. What are the causes? Kidney stones may be caused by: ? A condition in which certain glands make too much parathyroid hormone (primary hyperparathyroidism). ? A buildup of a type of crystals in the bladder made of a chemical called uric acid. The body makes uric acid when you eat certain foods. ? Narrowing (stricture) of one or both of the ureters. ? A kidney blockage that you were born with. ? Past surgery on the kidney or the ureters, such as gastric bypass surgery. What increases the risk? You are more likely to develop this condition if: ? You have had a kidney stone in the past. ? You have a family history of kidney stones. ? You do not drink enough water. ? You eat a diet that is high in protein, salt (sodium), or sugar. ? You are overweight or very overweight (obese). What are the signs or symptoms? Symptoms of a kidney stone may include: ? Pain in the side of the belly, right below the ribs (flank pain). Pain usually spreads (radiates) to the groin. ? Needing to pee often or right away (urgently). ? Pain when going pee (urinating). ? Blood in your pee (hematuria). ? Feeling like you may vomit (nauseous). ? Vomiting. ? Fever and chills. How is this treated? Treatment depends on the size, location, and makeup of the kidney stones. The stones will often pass out of the body through peeing. You may need to: ? Drink more fluid to help pass the stone. In some cases, you may be given fluids through an IV tube put into one of your veins at the hospital. ? Take medicine for pain. ? Make changes in your diet to help keep kidney stones from coming back. Sometimes, medical procedures are needed to remove a kidney stone. This may involve: ? A procedure to break up kidney stones using a beam of light (laser) or shock waves. ? Surgery to remove the kidney stones. Follow these instructions at home: Medicines ? Take bopm-zlk-pzcevoq and prescription medicines only as told by your doctor. ? Ask your doctor if the medicine prescribed to you requires you to avoid driving or using heavy machinery. Eating and drinking ? Drink enough fluid to keep your pee pale yellow. You may be told to drink at least 8?10 glasses of water each day. This will help you pass the stone. ? If told by your doctor, change your diet. This may include: ? Limiting how much salt you eat. ? Eating more fruits and vegetables. ? Limiting how much meat, poultry, fish, and eggs you eat. ? Follow instructions from your doctor about eating or drinking restrictions. General instructions ? Collect pee samples as told by your doctor. You may need to collect a pee sample: ? 24 hours after a stone comes out. ? 8?12 weeks after a stone comes out, and every 6?12 months after that. ? Strain your pee every time you pee (urinate), for as long as told. Use the strainer that your doctor recommends. ? Do not throw out the stone. Keep it so that it can be tested by your doctor. ? Keep all follow-up visits as told by your doctor. This is important. You may need follow-up tests. How is this prevented? To prevent another kidney stone: ? Drink enough fluid to keep your pee pale yellow. This is the best way to prevent kidney stones. ? Eat healthy foods. ? Avoid certain foods as told by your doctor. You may be told to eat less protein. ? Stay at a healthy weight. Where to find more information ? National Kidney Foundation (NKF): www.kidney.org ? [employer] (UCF): www.urologyhealth.org Contact a doctor if: ? You have pain that gets worse or does not get better with medicine. Get help right away if: ? You have a fever or chills. ? You get very bad pain. ? You get new pain in your belly (abdomen). ? You pass out (faint). ? You cannot pee. Summary ? Kidney stones are rock-like masses that form inside of the kidneys. ? Kidney stones can cause very bad pain and can block the flow of pee. ? The stones will often pass out of the body through peeing. ? Drink enough fluid to keep your pee pale yellow. This information is not intended to replace advice given to you by your health care provider. Make sure you discuss any questions you have with your health care provider. Document Revised: 02/15/2022 Document Reviewed: 02/15/2022 [employer] Patient Education ? 2022 [employer] [facility] Urology Office/Clinic Noteon 05-10-2023 Urology Office/Clinic Note Chief Complaint 6m MARGARETTE/KUB HPI Staff PRW pt 6m KUB/MARGARETTE DX: Recurrent UTI & Kidney Stone *Started on post coital Keflex at time of last encounter. Pt then had UTI. Tx'd by Dr Lee with Amoxicillin. So he then started her on Amoxicillin 3x/wk to replace the Keflex. Pt states she has intercourse daily. Believes culture at that time was E Coli. States she usually has symptoms. Bladder Spasms & frequency w/small voids. Urge incontinence is worsening. Does wear a discrete pad daily. 1 pad lasts all day. MARGARETTE & KUB 04/25/23 CT AP wo con 05/05/23 ordered by PCP due to flank pain. Currently having intense, dull achy Rt flank pain. Denies blood in urine. Occasional pain with urination. Denies burning. Feels like she has a stent again. Pt states she is aware that her imaging does show stones. Is interested in surgical intervention. Did not do it soon enough last time. Would like to take care of it in timely manner this time. 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 Illness staff HPI reviewed and agree. Review of Systems PHQ Score Initial Depression Screen Score: 0 SCORE no fever, chills, malaise, myalgia. no rash/lesions. no chest pain, palpitations, or SOB. no abdominal pain, nausea, vomiting. no unilateral calf swelling, redness, pain Physical Exam Vitals & Measurements HT: 63 in HT: 160 cm WT: 58 kg WT: 127.6 lb BMI: 22.66 General: nontoxic, NAD Mouth: moist mucosa Lungs: normal respiratory effort Cardio: regular rate, good distal perfusion Abdomen: nondistended, no suprapubic distention or tenderness, no CVA tenderness Neurologic: Grossly normal Skin: No rashes or suspicious lesions Assessment/Plan PRW pt BUN 5, Cr 0.75, eGFR >60 11/15/22 1. Kidney stone (N20.0: Calculus of kidney) S/p R ESWL 01/07/2022 CT from [facility] 10/24/21 shows two 5 mm R renal stones with slight prominence of the collecting system. CT done 05/2022 was negative for stones Renal US 04/25/23 right kidney contains multiple echogenic foci, largest measuring up to 0.4 cm. The left kidney contains multiple echogenic foci, largest measuring up to 0.4 cm. No hydronephrosis. KUB 04/25/23 neg for obvious stones CT AP wo con 05/05/23 (ordered by Dr. Lee) mild right hydronephrosis and hydroureter without appreciable ureteral stones. Several calcifications within right kidney, largest is within the renal pelvis, 10 mm. Stable mild atrophy, asymmetry of right kidney. Pt denies passing any stones however Dr. Lee told her that one of her stones passed. Discussed ball valving. Currently having intense, dull achy Rt flank pain. Denies blood in urine. Occasional pain with urination. Denies burning. Feels like she has a stent again. Not a candidate for ESWL due to stones not being present on recent KUB. -Will schedule R laser lithotripsy w/ PRW. The procedural risks, benefits, details, and treatment alternatives have been discussed with the patient. These include bleeding, infection, inability to break or retrieve all of the stone, injury to the ureter (the tube which connects the kidney to the bladder), injury to the kidney scarring of the ureter, and need for repeat procedures, among others. Full informed consent has been obtained. Will order Generalanesthesia. 2. Hydronephrosis (N13.30: Unspecified hydronephrosis) See #1 3. Recurrent UTI (N39.0: Urinary tract infection, site not specified) UCx: 03/31/22 - E Coli 05/30/22 - E Coli 08/11/22 - E Coli, Tx'd w/ Macrobid PVR last visit 58 ml Started on post coital Keflex at time of last encounter. Pt then had UTI. Tx'd by Dr Lee with Amoxicillin. So he then switched her from post-coital Keflex to Amoxicillin 3x/wk. Pt states she has intercourse daily. Believes culture at that time was E Coli (11/15/22). States she usually has symptoms w +cx. No UTIs since that time. UA today small blood, + nitrate, small leuks. -send for cx -start empiric Bactrim today (pt reports hx urosepsis). hold suppressive amox for now. -Contact our office w all future UTI sx so we can monitor urine cx results, treat appropriately (may require extended course abx), and monitor frequency of infections Follow-up With When Contact Information RACIEL ANDERSON, [place], URL [address] [place] [phone]- Additional Instructions: Schedule laser litho Patient Education Kidney Stones, [id number] Documentation recorded by the scrdelaney Gross accurately reflects the services(s) I performed and decisions made by me. Authenticated by Tish Kendall PA-C on 05/10/2023 13:59:15. I, Sanna Gross, personally scribed for Tish Kendall PA-C on 05/10/2023 13:52:10. . Problem List/Past Medical History Ongoing Anemia Chronic kidney disease Crohn disease ESBL E. coli carrier Flank pain Gall stone Headache Heart disease History of blood clots Hydronephrosis IBS (irritable bowel syndrome) Kidney stone Recurrent UTI Tachycardia (more content not included)... Normal [facility] Comment on above: Result Comment: Elec tronically Signed By: TISH KENDALL PA-C\Almabr\Date and Time Signed: 05/10/23 13:59 EST\.br\Electronically Co-Signed By: Sanna Grossbr\Date and Time Co-Signed: 05/10/23 13:52 EST RAD - MISCon 04-28-2023 RAD - MISC [id number]#1.00TIFF Normal [facility] RAD - Ultrasound Reporton RAD - Ultrasound Report [id number]#1.00TIFF Normal [facility] CULTURE URINEon 11-17-2022 CULTURE URINE Isolate 1 Escherichia coli >100,000 cfu/mL of ORGANISM 1 Escherichia coli ANTIBIOTIC M.I.C RX STATUS Ampicillin >=32 R F Ampicillin/Sulbactam >=32 R F Piperacillin/Tazobactam 64 I F Cefazolin >=64 R F Ceftazidime >=64 R F Ceftriaxone >=64 R F Ertapenem <=0.5 S F Imipenem <=0.25 S F Amikacin <=2 S F Gentamicin <=1 S F Tobramycin <=1 S F Ciprofloxacin <=0.25 S F Levofloxacin <=0.12 S F Nitrofurantoin 128 R F Trimethoprim/Sulfamethoxaz ole <=20 S F Normal [facility] Comment on above: Performed By: #### U AMIC #### [facility] [address] [place] [address] Dr. Tori Thomas CBC AUTO DIFFon 11-15-2022 BASO # 0.0 103/ul Normal 0.0-0.1 [facility] Comment on above: Performed By: #### P T, PTT #### [facility] [address] [place] [address] Dr. Tori Thomas Basophils/100 WBC (Bld) 0.2 % Normal 0.2-2.0 [facility] Comment on above: Performed By: #### P T, PTT #### [facility] [address] [place] [address] Dr. Tori Thomas EO # 0.0 103/ul Normal 0.0-0.7 [facility] Comment on above: Performed By: #### P T, PTT #### [facility] [address] [place] [address] Dr. Tori Thomas Eosinophils/100 WBC (Bld) 0.0 % Critically low 0.9-7.0 [facility] Comment on above: Performed By: #### P T, PTT #### [facility] [address] [place] [address] Dr. Tori Thomas Erythrocyte distribution width (RBC) [Ratio] 14.0 % Normal 11.0-15.0 [facility] Comment on above: Performed By: #### P T, PTT #### [facility] [address] [place] [address] Dr. Tori Thomas Hematocrit (Bld) [Volume fraction] 36.8 % Normal 36.0-48.0 [facility] Comment on above: Performed By: #### P T, PTT #### [facility] [address] [place] [address] Dr. Tori Thomas Hemoglobin (Bld) [Mass/Vol] 12.2 g/dL Normal 12.0-16.0 [facility] Comment on above: Performed By: #### P T, PTT #### [facility] [address] [place] [address] Dr. Tori Thomas IG # 0.03 10e3/ul Normal 0.00-0.03 [facility] Comment on above: Performed By: #### P T, PTT #### [facility] [address] [place] [address] Dr. Tori Thomas IG % 0.3 % Normal 0.0-0.5 [facility] Comment on above: Performed By: #### P T, PTT #### [facility] [address] [place] [address] Dr. Tori Thomas LYMPH # 1.9 103/ul Normal 1.2-3.8 [facility] Comment on above: Performed By: #### P T, PTT #### [facility] [address] [place] [address] Dr. Tori Thomas Lymphocytes/100 WBC (Bld) 17.2 % Critically low 20.5-60.0 [facility] Comment on above: Performed By: #### P T, PTT #### [facility] [address] [place] [address] Dr. Tori Thomas MANUAL DIFF REQ NO Normal [facility] Comment on above: Performed By: #### P T, PTT #### [facility] [address] [place] [address] Dr. Tori Thomas MCH (RBC) [Entitic mass] 28.8 pg Normal 26.7-34.0 [facility] Comment on above: Performed By: #### P T, PTT #### [facility] [address] [place] [address] Dr. Tori Thomas MCHC (RBC) [Mass/Vol] 33.2 g/dL Normal 29.9-35.2 [facility] Comment on above: Performed By: #### P T, PTT #### [facility] [address] [place] [address] Dr. Tori Thomas MCV (RBC) [Entitic vol] 87.0 fL Normal 81.0-99.0 [facility] Comment on above: Performed By: #### P T, PTT #### [facility] [address] [place] [address] Dr. Tori Thomas MONO # 0.5 103/ul Normal 0.3-0.8 [facility] Comment on above: Performed By: #### P T, PTT #### [facility] [address] [place] [address] Dr. Tori Thomas Monocytes/100 WBC (Bld) 4.0 % Normal 1.7-12.0 [facility] Comment on above: Performed By: #### P T, PTT #### [facility] [address] [place] [address] Dr. Tori Thomas NEUT # 8.8 103/ul Critically high 1.4-6.5 [facility] Comment on above: Performed By: #### P T, PTT #### [facility] [address] [place] [address] Dr. Tori Thomas Neutrophils/100 WBC (Bld) 78.3 % Critically high 43.0-75.0 [facility] Comment on above: Performed By: #### P T, PTT #### [facility] [address] [place] [address] Dr. Tori Thomas Platelet mean volume (Bld) [Entitic vol] 9.8 fL Normal 9.5-13.5 [facility] Comment on above: Performed By: #### P T, PTT #### [facility] [address] [address] [address] Tori Thomas PLT 317 103/ul Normal 150-450 [facility] Comment on above: Performed By: #### P T, PTT #### [facility] [address] [address] [address] Tori Thomas RBC 4.23 106/ul Normal 4.20-5.40 [facility] Comment on above: Performed By: #### P T, PTT #### [facility] [address] [address] [address] Tori Thomas WBC 11.3 103/ul Critically high 4.0-11.0 [facility] Comment on above: Performed By: #### P T, PTT #### [facility] [address] [address] [address] Tori Thomas Complete Blood Count Auto Di ffon 11-15-2022 Basophils (Bld) [#/Vol] 0.0 10*3/uL Normal 0.0-0.2 [facility] Comment on above: Result Comment: PERF ORMED BY: [place] [address] PATHOLOGIST BALL ASSEMBLER RADHA GARCIA M.D. Performed By: #### C BC, MG, CMP, ESR, LIPASE, TSH3 #### [facility] [address] [place] [address] Basophils/100 WBC (Bld) 0.3 % Normal . [facility] Comment on above: Performed By: #### C BC, MG, CMP, ESR, LIPASE, TSH3 #### [facility] [address] [place] [address] Eosinophils (Bld) [#/Vol] 0.0 10*3/uL Normal 0.0-0.45 [facility] Comment on above: Performed By: #### C BC, MG, CMP, ESR, LIPASE, TSH3 #### [address] [address] [place] Eosinophils/100 WBC (Bld) 0.3 % Normal . [facility] Comment on above: Performed By: #### C BC, MG, CMP, ESR, LIPASE, TSH3 #### [address] Erythrocyte distribution width (RBC) [Ratio] 14.6 % Normal 11.9-15.3 [facility] Comment on above: Performed By: #### C BC, MG, CMP, ESR, LIPASE, TSH3 #### [address] Hematocrit (Bld) [Volume fraction] 36.1 % Normal 34.0-46.4 [facility] Comment on above: Performed By: #### C BC, MG, CMP, ESR, LIPASE, TSH3 #### [address] Hemoglobin (Bld) [Mass/Vol] 12.1 g/dL Normal 11.8-15.4 [facility] Comment on above: Performed By: #### C BC, MG, CMP, ESR, LIPASE, TSH3 #### [address] Lymphocytes (Bld) [#/Vol] 1.7 10*3/uL Normal 1.00-4.8 [facility] Comment on above: Performed By: #### C BC, MG, CMP, ESR, LIPASE, TSH3 #### [address] Lymphocytes/100 WBC (Bld) 14.8 % Normal . [facility] Comment on above: Performed By: #### C BC, MG, CMP, ESR, LIPASE, TSH3 #### [address] MCH (RBC) [Entitic mass] 29.0 pg Normal 24.7-34.3 [facility] Comment on above: Performed By: #### C BC, MG, CMP, ESR, LIPASE, TSH3 #### [address] MCV (RBC) [Entitic vol] 86.4 fL Normal 80-100 [facility] Comment on above: Performed By: #### C BC, MG, CMP, ESR, LIPASE, TSH3 #### [address] Mean Corpuscular HGB Conc 33.6 g/dL Normal 32.0-35.0 [facility] Comment on above: Performed By: #### C BC, MG, CMP, ESR, LIPASE, TSH3 #### [address] Monocytes (Bld) [#/Vol] 0.5 10*3/uL Normal 0.0-0.8 [facility] Comment on above: Performed By: #### C BC, MG, CMP, ESR, LIPASE, TSH3 #### [address] Monocytes/100 WBC (Bld) 17.56 % Normal 0.00-20.00 [facility] Comment on above: Performed By: #### C BC, MG, CMP, ESR, LIPASE, TSH3 #### [address] Monocytes/100 WBC (Bld) 4.3 % Normal . [facility] Comment on above: Performed By: #### C BC, MG, CMP, ESR, LIPASE, TSH3 #### [address] Neutrophils (Bld) [#/Vol] 9.1 10*3/uL High 1.8-7.7 [facility] Comment on above: Performed By: #### C BC, MG, CMP, ESR, LIPASE, TSH3 #### [address] Neutrophils/100 WBC (Bld) 80.3 % Normal . [facility] Comment on above: Performed By: #### C BC, MG, CMP, ESR, LIPASE, TSH3 #### [address] NRBC% 0.0 /100{WBC} Normal 0-0.5 [facility] Comment on above: Performed By: #### C BC, MG, CMP, ESR, LIPASE, TSH3 #### [address] Platelet mean volume (Bld) [Entitic vol] 7.9 fL Normal 6.3-10.7 [facility] Comment on above: Performed By: #### C BC, MG, CMP, ESR, LIPASE, TSH3 #### [address] Platelets (Bld) [#/Vol] 294 10*3/uL Normal 150-450 [facility] Comment on above: Performed By: #### C BC, MG, CMP, ESR, LIPASE, TSH3 #### [address] RBC (Bld) [#/Vol] 4.18 10*6/uL Normal 3.60-5.00 [facility] Comment on above: Performed By: #### C BC, MG, CMP, ESR, LIPASE, TSH3 #### [address] WBC (Bld) [#/Vol] 11.3 10*3/uL Normal 3.8-11.6 [facility] Comment on above: Performed By: #### C BC, MG, CMP, ESR, LIPASE, TSH3 #### [address] Comprehensive Metabolic Pane eagle 11-15-2022 Albumin [Mass/Vol] 4.1 g/dL Normal 3.5-5.7 [facility] Comment on above: Performed By: #### C BC, MG, CMP, ESR, LIPASE, TSH3 #### [address] Albumin/Globulin [Mass ratio] 1.6 {ratio} Normal [facility] Comment on above: Performed By: #### C BC, MG, CMP, ESR, LIPASE, TSH3 #### [address] ALP [Catalytic activity/Vol] 48 U/L Normal 34-104 [facility] Comment on above: Performed By: #### C BC, MG, CMP, ESR, LIPASE, TSH3 #### [facility] [address] ALT [Catalytic activity/Vol] 27 U/L Normal 7-52 [facility] Comment on above: Performed By: #### C BC, MG, CMP, ESR, LIPASE, TSH3 #### [facility] [address] Anion gap [Moles/Vol] 10.2 mmol/L Normal 6.0-15.0 [facility] Comment on above: Performed By: #### C BC, MG, CMP, ESR, LIPASE, TSH3 #### [address] AST [Catalytic activity/Vol] 25 U/L Normal 13-39 [facility] Comment on above: Performed By: #### C BC, MG, CMP, ESR, LIPASE, TSH3 #### [address] Bilirubin [Mass/Vol] 0.5 mg/dL Normal 0.3-1.0 [facility] Comment on above: Performed By: #### C BC, MG, CMP, ESR, LIPASE, TSH3 #### [address] Calcium [Mass/Vol] 8.5 mg/dL Low 8.6-10.3 [facility] Comment on above: Performed By: #### C BC, MG, CMP, ESR, LIPASE, TSH3 #### [address] Chloride [Moles/Vol] 106 mmol/L Normal 98-107 [facility] Comment on above: Performed By: #### C BC, MG, CMP, ESR, LIPASE, TSH3 #### [facility] [address] CO2 [Moles/Vol] 25.2 mmol/L Normal 21.0-31.0 [facility] Comment on above: Performed By: #### C BC, MG, CMP, ESR, LIPASE, TSH3 #### [address] Creatinine [Mass/Vol] 0.75 mg/dL Normal 0.60-1.20 [facility] Comment on above: Performed By: #### C BC, MG, CMP, ESR, LIPASE, TSH3 #### [address] Creatinine Clr Calc Pharmacy 86.61 [facility] Comment on above: Result Comment: PERF ORMED BY: [place] [address] PATHOLOGIST BALL ASSEMBLER RADHA GARCIA M.D. Performed By: #### C BC, MG, CMP, ESR, LIPASE, TSH3 #### [address] GFR/1.73 sq M.predicted MDRD (S/P/Bld) [Vol rate/Area] mL/min/{1.73_m2} [facility] Comment on above: Performed By: #### C BC, MG, CMP, ESR, LIPASE, TSH3 #### [address] Globulin (S) [Mass/Vol] 2.6 g/dL [facility] Comment on above: Performed By: #### C BC, MG, CMP, ESR, LIPASE, TSH3 #### [address] Glucose [Mass/Vol] 81 mg/dL Normal 70-100 [facility] Comment on above: Result Comment: [place] Glucose Reference Range is dependent on time and content of last meal. Glucose of more than 200 mg/dL in a nonstressed, ambulatory subject supports the diagnosis of Diabetes Mellitus. ADA recommended reference range Performed By: #### C BC, MG, CMP, ESR, LIPASE, TSH3 #### [address] Potassium [Moles/Vol] 3.4 mmol/L Low 3.5-5.1 [facility] Comment on above: Performed By: #### C BC, MG, CMP, ESR, LIPASE, TSH3 #### [facility] [address] Protein [Mass/Vol] 6.7 g/dL Normal 6.4-8.9 [facility] Comment on above: Performed By: #### C BC, MG, CMP, ESR, LIPASE, TSH3 #### [facility] [address] Sodium [Moles/Vol] 138 mmol/L Normal 136-145 [facility] Comment on above: Performed By: #### C BC, MG, CMP, ESR, LIPASE, TSH3 #### [facility] [address] Urea nitrogen [Mass/Vol] 5 mg/dL Low 7-25 [facility] Comment on above: Performed By: #### C BC, MG, CMP, ESR, LIPASE, TSH3 #### [address] DRUG SCREEN RAPID (URINE)on 11-15-2022 AMP Negative Normal NEGATIVE [facility] Comment on above: Performed By: #### D DERIC RODRÍGUEZ UMICRO #### [facility] [address] [address] [address] Tori Thomas BAR Negative Normal NEGATIVE [facility] Comment on above: Performed By: #### D DERIC RODRÍGUEZ UMICRO #### [facility] [address] [address] [address] Tori Thomas BUP Negative Normal NEGATIVE [facility] Comment on above: Performed By: #### D DERIC RODRÍGUEZ UMICRO #### [facility] [address] [address] [address] Tori Thomas BZO Positive Abnormal NEGATIVE [facility] Comment on above: Performed By: #### D DERIC RODRÍGUEZ UMICRO #### [facility] [address] [address] [address] Tori Thomas HARESH Negative Normal NEGATIVE [facility] Comment on above: Performed By: #### D DERIC RODRÍGUEZ UMICRO #### [facility] [address] [address] [address] Tori Thomas CUT-OFFS SEE BELOW Normal [facility] Comment on above: Result Comment: AMP (Amphetamine): 500ng/mL, BAR (Barbituates): 200 ng/mL, BZO (Benzodiazepines): 150 ng/mL, BUP (Buprenorphine): 10 ng/mL, HARESH (Cocaine): 150 ng/mL, mAMP (Methamphetamine): 500 ng/mL, MTD (Methadone): 200 ng/mL, OPI (Opiates): 100 ng/mL, OXY (Oxycodone): 100 ng/mL, PCP (Phencyclidine): 25 ng/mL, PPX (Propoxyphene): 300 ng/mL, THC (Cannabinoids): 50 ng/mL, TCA (Trycyclic Antidepressants): 300 ng/mL Performed By: #### D DERIC RODRÍGUEZ UMICRO #### [facility] [address] [place] [address] Dr. Tori Thomas DRUG CUT HEADER DRUG CLASS TEST SYST EM CUT-OFF CONCENTRATIONS ARE FOLLOWS: Normal [facility] Comment on above: Performed By: #### D DERIC RODRÍGUEZ UMICRO #### [facility] [address] [address] [address] Tori Thomas mAMP Negative Normal NEGATIVE [facility] Comment on above: Performed By: #### D DERIC RODRÍGUEZ UMICRO #### [facility] [address] [place] [address] Dr. Tori Thomas MTD Negative Normal NEGATIVE [facility] Comment on above: Performed By: #### D DERIC RODRÍGUEZ UMICRO #### [facility] [address] [address] [address] Tori Thomas OPI Positive Abnormal NEGATIVE [facility] Comment on above: Performed By: #### D DERIC RODRÍGUEZ UMICRO #### [facility] [address] [place] [address] Dr. Tori Thomas OXY Positive Abnormal NEGATIVE [facility] Comment on above: Performed By: #### D RUGRPD, ERUR, UMICRO #### [facility] [address] [address] [address] Tori Thomas PCP Negative Normal NEGATIVE [facility] Comment on above: Performed By: #### D RUGRPD, ERUR, UMICRO #### [facility] [address] [address] [address] Tori Thomas PPX Negative Normal NEGATIVE [facility] Comment on above: Performed By: #### D RUGRPD, ERUR, UMICRO #### [facility] [address] [address] [address] Tori Thomas TCA Negative Normal NEGATIVE [facility] Comment on above: Performed By: #### D RUGRPD, ERUR, UMICRO #### [facility] [address] [address] [address] Tori Thomas THC Positive Abnormal NEGATIVE [facility] Comment on above: Performed By: #### D RUGRPD, ERUR, UMICRO #### [facility] [address] [address] [address] Tori Thomas Dipstick and Microscopicon 0 11-15-2022 Appearance (U) Turbid Critically abnormal Clear [facility] Comment on above: Order Comment: Name Collection Type:: Clean-Voided Midstream Performed By: #### C BC, MG, CMP, ESR, LIPASE, TSH3 #### [facility] [address] [place] [address] [place] Bacteria,Urine 2+ High None Seen [facility] Comment on above: Order Comment: Name Collection Type:: Clean-Voided Midstream Performed By: #### C BC, MG, CMP, ESR, LIPASE, TSH3 #### [facility] [address] [place] [address] [place] Bilirubin,Urine Negative Normal Negative [facility] Comment on above: Order Comment: Name Collection Type:: Clean-Voided Midstream Performed By: #### C BC, MG, CMP, ESR, LIPASE, TSH3 #### [facility] [address] Color (U) Yellow Normal Yellow [facility] Comment on above: Order Comment: Name Collection Type:: Clean-Voided Midstream Performed By: #### C BC, MG, CMP, ESR, LIPASE, TSH3 #### [facility] [address] Glucose Ql (U) Normal Normal Normal [facility] Comment on above: Order Comment: Name Collection Type:: Clean-Voided Midstream Performed By: #### C BC, MG, CMP, ESR, LIPASE, TSH3 #### [facility] [address] [place] [address] [place] Hyaline Casts,Urine 0-8 Normal 0-8 [facility] Comment on above: Order Comment: Name Collection Type:: Clean-Voided Midstream Performed By: #### C BC, MG, CMP, ESR, LIPASE, TSH3 #### [facility] [address] [place] [address] Ketones Ql (U) Negative Normal Negative [facility] Comment on above: Order Comment: Name Collection Type:: Clean-Voided Midstream Performed By: #### C BC, MG, CMP, ESR, LIPASE, TSH3 #### [facility] [address] [place] [address] Leukocyte esterase Test strip Ql (U) 4+ High Negative [facility] Comment on above: Order Comment: Name Collection Type:: Clean-Voided Midstream Performed By: #### C BC, MG, CMP, ESR, LIPASE, TSH3 #### [facility] [address] [place] [address] [place] Nitrite,Urine Positive High Negative [facility] Comment on above: Order Comment: Name Collection Type:: Clean-Voided Midstream Performed By: #### C BC, MG, CMP, ESR, LIPASE, TSH3 #### [facility] [address] [place] [address] [place] Occult Blood,Urine 1+ High Negative [facility] Comment on above: Order Comment: Name Collection Type:: Clean-Voided Midstream Result Comment: PERF ORMED BY: [place] [address] PATHOLOGIST BALL ASSEMBLER RADHA GARCIA M.D. Performed By: #### C BC, MG, CMP, ESR, LIPASE, TSH3 #### [address] pH (U) 6.0 [pH] Normal 5.0-9.0 [facility] Comment on above: Order Comment: Name Collection Type:: Clean-Voided Midstream Performed By: #### C BC, MG, CMP, ESR, LIPASE, TSH3 #### [address] Protein (U) [Mass/Vol] 100 mg/dL High Negative [facility] Comment on above: Order Comment: Name Collection Type:: Clean-Voided Midstream Performed By: #### C BC, MG, CMP, ESR, LIPASE, TSH3 #### [address] RBC,Urine 5-9 High 0-4 [facility] Comment on above: Order Comment: Name Collection Type:: Clean-Voided Midstream Performed By: #### C BC, MG, CMP, ESR, LIPASE, TSH3 #### [address] Specificy [place],Urine 1.015 Normal 1.001-1.03 0 [facility] Comment on above: Order Comment: Name Collection Type:: Clean-Voided Midstream Performed By: #### C BC, MG, CMP, ESR, LIPASE, TSH3 #### [address] Squamous Epithelial Cell,Urine 1-2 Normal 0-2 [facility] Comment on above: Order Comment: Name Collection Type:: Clean-Voided Midstream Performed By: #### C BC, MG, CMP, ESR, LIPASE, TSH3 #### [address] Urobilinogen,Urine Normal Normal Normal [facility] Comment on above: Order Comment: Name Collection Type:: Clean-Voided Midstream Performed By: #### C BC, MG, CMP, ESR, LIPASE, TSH3 #### [facility] [address] [place] [address] WBC,Urine Innumerable High 0-4 [facility] Comment on above: Order Comment: Name Collection Type:: Clean-Voided Midstream Performed By: #### C BC, MG, CMP, ESR, LIPASE, TSH3 #### [address] Yeast,Urine None Seen Normal None Seen [facility] Comment on above: Order Comment: Name Collection Type:: Clean-Voided Midstream Result Comment: PERF ORMED BY: [place] [address] PATHOLOGIST BALL ASSEMBLER RADHA GARCIA M.D. Performed By: #### C BC, MG, CMP, ESR, LIPASE, TSH3 #### [address] Drug Screen,Urineon 11-16-19 23 Amphetamine Screen,Urine Negative Normal Negative [facility] Comment on above: Performed By: #### C BC, MG, CMP, ESR, LIPASE, TSH3 #### [address] Barbiturate Screen,Urine Negative Normal Negative [facility] Comment on above: Performed By: #### C BC, MG, CMP, ESR, LIPASE, TSH3 #### [address] Benzodiazepines Screen,Urine Negative Normal Negative [facility] Comment on above: Performed By: #### C BC, MG, CMP, ESR, LIPASE, TSH3 #### [address] Cannabinoid Screen,Urine Positive High Negative [facility] Comment on above: Result Comment: Thes e are unconfirmed results and should not be used for legal purposes. Drug Cut-Off Concentration: AMPH 1000 ng/mL CALIN 200 ng/mL LEONIDES 200 ng/mL COCM 300 ng/mL OP 300 ng/mL PCP 25 ng/mL THC 20 ng/mL PERFORMED BY: [place] [address] PATHOLOGIST BALL ASSEMBLER RADHA GARCIA M.D. Performed By: #### C BC, MG, CMP, ESR, LIPASE, TSH3 #### [address] Cocaine Screen,Urine Negative Normal Negative [facility] Comment on above: Performed By: #### C BC, MG, CMP, ESR, LIPASE, TSH3 #### [facility] [address] Opiate Screen,Urine Positive High Negative [facility] Comment on above: Performed By: #### C BC, MG, CMP, ESR, LIPASE, TSH3 #### [address] Phencyclidine Screen,Urine Negative Normal Negative [facility] Comment on above: Performed By: #### C BC, MG, CMP, ESR, LIPASE, TSH3 #### [address] ECG 12 lead ECGon 11-15-2022 ECG 12 lead ECG [facility] [place] [address] [place] [address] Electrocardiograph Report Signed Patient: Raquel Correa MR#: [id number] : 1985 Acct:[id number] Age/Sex: 37 / F ADM Date: 11/15/22 Loc: ER Room: Type: [facility] ER Attending Dr: Ordering Provider: Van Rosen DO Date of Service: 11/15/22 ECG/ECG 12 lead ECG: Overdose Copies to: Test Reason : Blood Pressure : / mmHG Vent. Rate : 076 BPM Atrial Rate : 076 BPM P-R Int : 158 ms QRS Dur : 084 ms QT Int : 358 ms P-R-T Axes : 060 076 055 degrees QTc Int : 402 ms Normal sinus rhythm Normal ECG When compared with ECG of 09-MAY-2022 12:17, No significant change was found Confirmed by VAN ROSEN DO ([id number]) on 11/16/2022 1:06:15 AM Referred By: Electronically Signed By:VAN ROSEN DO Transcribed By: MUS Signed By Van Rosen DO 0106 [facility] ER URINE PROFILEon 3 Bilirubin Ql (U) Negative Normal NEGATIVE [facility] Comment on above: Performed By: #### D RUGRPD, ERUR, UMICRO #### [facility] [address] [address] [address] Tori Thomas Clarity (U) CLEAR Normal CLEAR [facility] Comment on above: Performed By: #### D RUGRPD, ERUR, UMICRO #### [facility] [address] [address] [address] Tori Thomas Color (U) LT. YELLOW Normal YELLOW [facility] Comment on above: Performed By: #### D RUGRPD, ERUR, UMICRO #### [facility] [address] [place] [address] Dr. Tori NEAL A micrscopic examina tion will be performed if indicated. Normal [facility] Comment on above: Performed By: #### D RUGRPD, ERUR, UMICRO #### [facility] [address] [place] [address] Dr. Tori Thomas Glucose Ql (U) Negative Normal NEGATIVE [facility] Comment on above: Performed By: #### D RUGRPD, ERUR, UMICRO #### [facility] [address] [address] [address] Tori Thomas Hemoglobin Ql (U) SMALL Abnormal NEGATIVE [facility] Comment on above: Performed By: #### D RUGRPD, ERUR, UMICRO #### [facility] [address] [address] [address] Tori Thomas Ketones Ql (U) Negative Normal NEGATIVE [facility] Comment on above: Performed By: #### D RUGRPD, ERUR, UMICRO #### [facility] [address] [address] [address] Tori Thomas LEUKOCYTES MODERATE Abnormal NEGATIVE [facility] Comment on above: Performed By: #### D RUGRPD, ERUR, UMICRO #### [facility] [address] [address] [address] Tori Thomas Nitrite Ql (U) Positive Abnormal NEGATIVE [facility] Comment on above: Performed By: #### D RUGRPD, ERUR, UMICRO #### [facility] [address] [address] [address] Tori Thomas pH (U) 5.5 [pH] Normal 5-9 [facility] Comment on above: Performed By: #### D RUGRPD, ERUR, UMICRO #### [facility] [address] [address] [address] Tori Thomas SPEC GRAVITY >=1.030 Abnormal 1.005-<=1. 025 [facility] Comment on above: Performed By: #### D RUGLUDWIN, ERUR, UMICRO #### [facility] [address] [place] [address] Dr. Tori Thomas UA PROTEIN TRACE Normal NEGATIVE/ TRACE [facility] Comment on above: Performed By: #### D RUGLUDWIN, ERUR, UMICRO #### [facility] [address] [place] [address] Dr. Tori Thomas UR MICRO IND INDICATED Normal [facility] Comment on above: Performed By: #### D RUGLUDWIN, ERUR, UMICRO #### [facility] [address] [address] [address] Tori Thomas Urobilinogen Qn (U) 0.2 {[place]'U}/dL Normal 0.2 - 1. 0 [facility] Comment on above: Performed By: #### D RUGRPD, ERUR, UMICRO #### [facility] [address] [place] [address] Dr. Tori Thomas ETHANOL (BLD ALC)on 11-16-19 23 ALC NOTE NOTE: 80 mg/dl is th e legal limit for a blood alcohol level Normal [facility] Comment on above: Performed By: #### P T, PTT #### [facility] [address] [place] [address] Dr. Tori Thomas Ethanol [Mass/Vol] mg/dL Normal [facility] Comment on above: Performed By: #### P T, PTT #### [facility] [address] [address] [address] Tori Thomas Ethyl Alcohol Profileon 10-26 Ethanol [Mass/Vol] mg/dL Normal [facility] Comment on above: Performed By: #### C BC, MG, CMP, ESR, LIPASE, TSH3 #### [facility] [address] Percent Ethanol Not performed Normal [facility] Comment on above: Result Comment: PERF ORMED BY: [place] [address] PATHOLOGIST BALL ASSEMBLER RADHA GARCIA M.D. Performed By: #### C BC, MG, CMP, ESR, LIPASE, TSH3 #### [facility] [address] MAGNESIUMon 11-15-2022 Magnesium [Mass/Vol] 1.9 mg/dL Normal 1.8-2.4 [facility] Comment on above: Performed By: #### P T, PTT #### [facility] [address] [address] [address] Tori Thomas PROF CHEM 8 (BAS METB)on Anion gap [Moles/Vol] 13.5 mmol/L Normal [facility] Comment on above: Performed By: #### P T, PTT #### [facility] [address] [place] [address] Dr. Tori Thomas Calcium [Mass/Vol] 8.0 mg/dL Critically low 8.5-10.1 [facility] Comment on above: Performed By: #### P T, PTT #### [facility] [address] [place] [address] Dr. Tori Thomas Chloride [Moles/Vol] 108 mmol/L Critically high 98-107 [facility] Comment on above: Performed By: #### P T, PTT #### [facility] [address] [address] [address] Tori Thomas CO2 [Moles/Vol] 25.4 mmol/L Normal 21.0-32.0 [facility] Comment on above: Performed By: #### P T, PTT #### [facility] [address] [address] [address] Tori Thomas Creatinine [Mass/Vol] 0.79 mg/dL Normal 0.55-1.02 [facility] Comment on above: Performed By: #### P T, PTT #### [facility] [address] [address] [address] Tori Thomas EGFR-AF MAURITIAN >60 Normal >=60 [facility] Comment on above: Performed By: #### P T, PTT #### [facility] [address] [place] [address] Dr. Tori Thomas EGFR-NON AF MAURITIAN >60 Normal >=60 [facility] Comment on above: Performed By: #### P T, PTT #### [facility] [address] [address] [address] Tori Thomas Glucose [Mass/Vol] 126 mg/dL Critically high 74-106 [facility] Comment on above: Performed By: #### P T, PTT #### [facility] [address] [place] [address] Dr. Tori Thomas Potassium [Moles/Vol] 3.9 mmol/L Normal 3.5-5.1 [facility] Comment on above: Performed By: #### P T, PTT #### [facility] [address] [place] [address] Dr. Tori Thomas Sodium [Moles/Vol] 143 mmol/L Normal 136-145 [facility] Comment on above: Performed By: #### P T, PTT #### [facility] [address] [address] [address] Tori Thomas Urea nitrogen [Mass/Vol] 7.0 mg/dL Normal 7.0-18.0 [facility] Comment on above: Performed By: #### P T, PTT #### [facility] [address] [address] [address] Tori Thomas Urea nitrogen/Creatinine [Mass ratio] 8.9 mg/mg Normal [facility] Comment on above: Performed By: #### P T, PTT #### [facility] [address] [address] [address] Tori Thomas Anion gap [Moles/Vol] 14.4 mmol/L Normal [facility] Comment on above: Performed By: #### B MP #### [facility] [address] [address] [address] Tori Thomas Calcium [Mass/Vol] 7.8 mg/dL Critically low 8.5-10.1 [facility] Comment on above: Performed By: #### B MP #### [facility] [address] [place] [address] Dr. Tori Thomas Chloride [Moles/Vol] 107 mmol/L Normal 98-107 [facility] Comment on above: Performed By: #### B MP #### [facility] [address] [address] [address] Tori Thomas CO2 [Moles/Vol] 23.6 mmol/L Normal 21.0-32.0 [facility] Comment on above: Performed By: #### B MP #### [facility] [address] [place] [address] Dr. Tori Thomas Creatinine [Mass/Vol] 0.78 mg/dL Normal 0.55-1.02 [facility] Comment on above: Performed By: #### B MP #### [facility] [address] [place] [address] Dr. Tori Thomas EGFR-AF MAURITIAN >60 Normal >=60 [facility] Comment on above: Performed By: #### B MP #### [facility] [address] [place] [address] Dr. Tori Thomas EGFR-NON AF MAURITIAN >60 Normal >=60 [facility] Comment on above: Performed By: #### B MP #### [facility] [address] [place] [address] Dr. Tori Thomas Glucose [Mass/Vol] 147 mg/dL Critically high 74-106 [facility] Comment on above: Performed By: #### B MP #### [facility] [address] [address] [address] Tori Thomas Potassium [Moles/Vol] 3.0 mmol/L Critically low 3.5-5.1 [facility] Comment on above: Performed By: #### B MP #### [facility] [address] [address] [address] Tori Thomas Sodium [Moles/Vol] 142 mmol/L Normal 136-145 [facility] Comment on above: Performed By: #### B MP #### [facility] [address] [address] [address] Tori Thomas Urea nitrogen [Mass/Vol] 7.0 mg/dL Normal 7.0-18.0 [facility] Comment on above: Performed By: #### B MP #### [facility] [address] [address] [address] Tori Thomas Urea nitrogen/Creatinine [Mass ratio] 9.0 mg/mg Normal [facility] Comment on above: Performed By: #### B MP #### [facility] [address] [address] [address] Tori Thomas Anion gap [Moles/Vol] 14.3 mmol/L Normal [facility] Comment on above: Performed By: #### P T, PTT #### [facility] [address] [address] [address] Tori Thomas Calcium [Mass/Vol] 7.5 mg/dL Critically low 8.5-10.1 [facility] Comment on above: Performed By: #### P T, PTT #### [facility] [address] [address] [address] Tori Thomas Chloride [Moles/Vol] 108 mmol/L Critically high 98-107 [facility] Comment on above: Performed By: #### P T, PTT #### [facility] [address] [address] [address] Tori Thomas CO2 [Moles/Vol] 22.8 mmol/L Normal 21.0-32.0 [facility] Comment on above: Performed By: #### P T, PTT #### [facility] [address] [address] [address] Tori Thomas Creatinine [Mass/Vol] 0.73 mg/dL Normal 0.55-1.02 [facility] Comment on above: Performed By: #### P T, PTT #### [facility] [address] [address] [address] Tori Thomas EGFR-AF MAURITIAN >60 Normal >=60 [facility] Comment on above: Performed By: #### P T, PTT #### [facility] [address] [address] [address] Tori Thomas EGFR-NON AF MAURITIAN >60 Normal >=60 [facility] Comment on above: Performed By: #### P T, PTT #### [facility] [address] [address] [address] Tori Thomas Glucose [Mass/Vol] 135 mg/dL Critically high 74-106 [facility] Comment on above: Performed By: #### P T, PTT #### [facility] [address] [address] [address] Tori Thomas Potassium [Moles/Vol] 3.1 mmol/L Critically low 3.5-5.1 [facility] Comment on above: Performed By: #### P T, PTT #### [facility] [address] [address] [address] Tori Thomas Sodium [Moles/Vol] 142 mmol/L Normal 136-145 [facility] Comment on above: Performed By: #### P T, PTT #### [facility] [address] [address] [address] Tori Thomas Urea nitrogen [Mass/Vol] 7.0 mg/dL Normal 7.0-18.0 [facility] Comment on above: Performed By: #### P T, PTT #### [facility] [address] [address] [address] Tori Thomas Urea nitrogen/Creatinine [Mass ratio] 9.6 mg/mg Normal [facility] Comment on above: Performed By: #### P T, PTT #### [facility] [address] [address] [address] Tori Thomas TSHon 11-15-2022 TSH 1.722 uIU/mL Normal 0.358-3.74 0 [facility] Comment on above: Performed By: #### P T, PTT #### [facility] [address] [address] [address] Tori Thomas URINE MICROSCOPIC ONLYon BACTERIA LARGE Abnormal NONE SEEN [facility] Comment on above: Performed By: #### D RUGRPD, ERUR, UMICRO #### [facility] [address] [address] [address] Tori Thomas Bacteria identified Cx Nom (U) INDICATED Normal [facility] Comment on above: Performed By: #### D RUGRPD, ERUR, UMICRO #### [facility] [address] [place] [address] Dr. Tori Thomas CA OX CRYSTALS RARE Normal [facility] Comment on above: Performed By: #### D RUGRPD, ERUR, UMICRO #### [facility] [address] [address] [address] Tori Thomas CAST NONE SEEN Normal NONE SEEN [facility] Comment on above: Performed By: #### D RUGRPD, ERUR, UMICRO #### [facility] [address] [address] [address] Tori Thomas Crystals LM Nom (Urine sed) SEEN Abnormal NONE SEEN [facility] Comment on above: Performed By: #### D RUGRPD, ERUR, UMICRO #### [facility] [address] [address] [address] Tori Thomas Epithelial cells LM Ql (Urine sed) FEW Abnormal NONE SEEN /RARE [facility] Comment on above: Performed By: #### D RUGRPD, ERUR, UMICRO #### [facility] [address] [address] [address] Tori Thomas MUCOUS NONE SEEN Normal NONE SEEN [facility] Comment on above: Performed By: #### D RUGRPD, DERIC, UMICRO #### [facility] [address] [place], [place] [address] Dr. Tori Thomas RBC 0-2 Normal 0-2 [facility] Comment on above: Performed By: #### D ANNE, AMANDAR, UMICRO #### [facility] [address] [place], [place] [address] Dr. Tori Thomas WBC 75-100 Abnormal NONE SEEN [facility] Comment on above: Performed By: #### D ANNE, DERIC, UMICRO #### [facility] [address] [place], [place] [address] Dr. Tori Thomas Urine Cultureon 11-15-2022 Bacteria identified Cx Nom (U) ORGANISM: Escherichia coli (ESBL) (O:ESCCOLESBL) [place] Count >100,000 Aerobic DIVYA Charge (NMIC56) SUSCEPTIBILITY ORGANISM: O:ESCCOLESBL ANTIBIOTIC INTERPRETATION DIVYA Amikacin S <16 Amoxacillin/K Clavulanate S <8 Ampicillin R* >16 Ampicillin/Sulbactam R >16 Aztreonam ESBL >16 Cefazolin R* >16 Cefepime R* >16 Ceftazidime ESBL >16 Ceftazidime/Avibactam S <4 Ceftolozane/Tazobactam S <2 Ceftriaxone ESBL >32 Cefuroxime R* >16 Ciprofloxacin S <0.25 Ertapenem S <0.5 Gentamicin S <2 Levofloxacin S <0.5 Meropenem S <1 Meropenem/Vaborbactam S <2 Nitrofurantoin R >64 Piperacillin/Tazobactam S <8 Tetracycline S <4 Tigecycline S <2 Tobramycin S <2 Trimethoprim/Sulfamethoxaz ole S <0.5 S = SUSCEPTIBLE I = INTERMEDIATE R = RESISTANT BLANK = DATA NOT AVAILABLE, OR DRUG NOT ADVISABLE OR TESTED R* = RESISTANCE DUE TO EXTENDED SPECTRUM BETA-LACTAMASES ESBL = EXTENDED SPECTRUM BETA-LACTAMASE TFG = THYMIDINE-DEPENDENT STRAIN EVE = BETA-LACTAMASE POSITIVE IB = INDUCIBLE BETA-LACTAMASE. APPEARS IN PLACE OF 'S' WITH SPECIES KNOWN TO POSSESS INDUCIBLE BETA-LACTAMASES. POTENTIALLY THEY MAY BECOME RESISTANT TO ALL B-LACTAM DRUGS. PERFORMED BY: [place] [address] PATHOLOGIST BALL ASSEMBLER RADHA GARCIA M.D. Normal [facility] Comment on above: Performed By: #### C BC, MG, CMP, ESR, LIPASE, TSH3 #### [address] CBC AUTO DIFFon 11-14-2022 BASO # 0.0 103/ul Normal 0.0-0.1 [facility] Comment on above: Performed By: #### P T, PTT #### [facility] [address] [place] [address] Dr. Tori Thomas Basophils/100 WBC (Bld) 0.2 % Normal 0.2-2.0 [facility] Comment on above: Performed By: #### P T, PTT #### [facility] [address] [address] [address] Tori Thomas EO # 0.1 103/ul Normal 0.0-0.7 [facility] Comment on above: Performed By: #### P T, PTT #### [facility] [address] [address] [address] Tori Thomas Eosinophils/100 WBC (Bld) 0.8 % Critically low 0.9-7.0 [facility] Comment on above: Performed By: #### P T, PTT #### [facility] [address] [address] [address] Tori Thomas Erythrocyte distribution width (RBC) [Ratio] 13.9 % Normal 11.0-15.0 [facility] Comment on above: Performed By: #### P T, PTT #### [facility] [address] [place] [address] Dr. Tori Thomas Hematocrit (Bld) [Volume fraction] 43.0 % Normal 36.0-48.0 [facility] Comment on above: Performed By: #### P T, PTT #### [facility] [address] [place] [address] Dr. Tori Thomas Hemoglobin (Bld) [Mass/Vol] 14.3 g/dL Normal 12.0-16.0 [facility] Comment on above: Performed By: #### P T, PTT #### [facility] [address] [place] [address] Dr. Tori Thomas IG # 0.04 10e3/ul Critically high 0.00-0.03 [facility] Comment on above: Performed By: #### P T, PTT #### [facility] [address] [place] [address] Dr. Tori Thomas IG % 0.3 % Normal 0.0-0.5 [facility] Comment on above: Performed By: #### P T, PTT #### [facility] [address] [place] [address] Dr. Tori Thomas LYMPH # 3.9 103/ul Critically high 1.2-3.8 [facility] Comment on above: Performed By: #### P T, PTT #### [facility] [address] [place] [address] Dr. Tori Thomas Lymphocytes/100 WBC (Bld) 28.8 % Normal 20.5-60.0 [facility] Comment on above: Performed By: #### P T, PTT #### [facility] [address] [place] [address] Dr. Tori Thomas MANUAL DIFF REQ NO Normal [facility] Comment on above: Performed By: #### P T, PTT #### [facility] [address] [place] [address] Dr. Tori Thomas MCH (RBC) [Entitic mass] 28.9 pg Normal 26.7-34.0 [facility] Comment on above: Performed By: #### P T, PTT #### [facility] [address] [place] [address] Dr. Tori Thomas MCHC (RBC) [Mass/Vol] 33.3 g/dL Normal 29.9-35.2 [facility] Comment on above: Performed By: #### P T, PTT #### [facility] [address] [place] [address] Dr. Tori Thomas MCV (RBC) [Entitic vol] 87.0 fL Normal 81.0-99.0 [facility] Comment on above: Performed By: #### P T, PTT #### [facility] [address] [place] [address] Dr. Tori Thomas MONO # 0.7 103/ul Normal 0.3-0.8 [facility] Comment on above: Performed By: #### P T, PTT #### [facility] [address] [place] [address] Dr. Tori Thomas Monocytes/100 WBC (Bld) 4.9 % Normal 1.7-12.0 [facility] Comment on above: Performed By: #### P T, PTT #### [facility] [address] [place] [address] Dr. Tori Thomas NEUT # 8.8 103/ul Critically high 1.4-6.5 [facility] Comment on above: Performed By: #### P T, PTT #### [facility] [address] [place] [address] Dr. Tori Thomas Neutrophils/100 WBC (Bld) 65.0 % Normal 43.0-75.0 [facility] Comment on above: Performed By: #### P T, PTT #### [facility] [address] [place] [address] Dr. Tori Thomas Platelet mean volume (Bld) [Entitic vol] 9.6 fL Normal 9.5-13.5 [facility] Comment on above: Performed By: #### P T, PTT #### [facility] [address] [place] [address] Dr. Tori Thomas PLT 406 103/ul Normal 150-450 [facility] Comment on above: Performed By: #### P T, PTT #### [facility] [address] [place] [address] Dr. Tori Thomas RBC 4.94 106/ul Normal 4.20-5.40 [facility] Comment on above: Performed By: #### P T, PTT #### [facility] [address] [place] [address] Dr. Tori Thomas WBC 13.6 103/ul Critically high 4.0-11.0 [facility] Comment on above: Performed By: #### P T, PTT #### [facility] [address] [place] [address] Dr. Tori Thomas MAGNESIUMon 11-14-2022 Magnesium [Mass/Vol] 1.5 mg/dL Critically low 1.8-2.4 [facility] Comment on above: Performed By: #### U AMIC #### [facility] [address] [place] [address] Dr. Tori Thomas PREG HCG QUALon 11-14-2022 , QUAL Negative Normal NEGATIVE [facility] Comment on above: Performed By: #### P T, PTT #### [facility] [address] [place] [address] Dr. Tori Thomas PROF 14(COMP METB)on 023 Albumin [Mass/Vol] 4.0 g/dL Normal 3.4-5.0 [facility] Comment on above: Performed By: #### P T, PTT #### [facility] [address] [place] [address] Dr. Tori Thomas Albumin/Globulin [Mass ratio] 1.0 {ratio} Normal [facility] Comment on above: Performed By: #### P T, PTT #### [facility] [address] [place] [address] Dr. Tori Thomas ALP [Catalytic activity/Vol] 62 U/L Normal 46-116 [facility] Comment on above: Performed By: #### P T, PTT #### [facility] [address] [place] [address] Dr. Tori Thomas ALT [Catalytic activity/Vol] 40 U/L Normal 14-59 [facility] Comment on above: Performed By: #### P T, PTT #### [facility] [address] [place] [address] Dr. Tori Thomas Anion gap [Moles/Vol] 17.3 mmol/L Normal [facility] Comment on above: Performed By: #### P T, PTT #### [facility] [address] [address] [address] Tori Thomas AST [Catalytic activity/Vol] 32 U/L Normal 15-37 [facility] Comment on above: Performed By: #### P T, PTT #### [facility] [address] [address] [address] Tori Thomas Bilirubin [Mass/Vol] 0.5 mg/dL Normal 0.2-1.0 [facility] Comment on above: Performed By: #### P T, PTT #### [facility] [address] [address] [address] Tori Thomas Calcium [Mass/Vol] 8.5 mg/dL Normal 8.5-10.1 [facility] Comment on above: Performed By: #### P T, PTT #### [facility] [address] [place] [address] Dr. Tori Thomas Chloride [Moles/Vol] 101 mmol/L Normal 98-107 [facility] Comment on above: Performed By: #### P T, PTT #### [facility] [address] [place] [address] Dr. Tori Thomas CO2 [Moles/Vol] 23.6 mmol/L Normal 21.0-32.0 [facility] Comment on above: Performed By: #### P T, PTT #### [facility] [address] [address] [address] Tori Thomas Creatinine [Mass/Vol] 1.02 mg/dL Normal 0.55-1.02 [facility] Comment on above: Performed By: #### P T, PTT #### [facility] [address] [address] [address] Tori Thomas EGFR-AF MAURITIAN >60 Normal >=60 [facility] Comment on above: Performed By: #### P T, PTT #### [facility] [address] [place] [address] Dr. Tori Thomas EGFR-NON AF MAURITIAN >60 Normal >=60 [facility] Comment on above: Performed By: #### P T, PTT #### [facility] [address] [place] [address] Dr. Tori Thomas Globulin (S) [Mass/Vol] 3.9 g/dL Normal [facility] Comment on above: Performed By: #### P T, PTT #### [facility] [address] [place] [address] Dr. Tori Thomas Glucose [Mass/Vol] 172 mg/dL Critically high 74-106 T [facility] Comment on above: Performed By: #### P T, PTT #### [facility] [address] [place] [address] Dr. Tori Thomas Potassium [Moles/Vol] 2.2 mmol/L Critically low 3.5-5.1 [facility] Comment on above: Performed By: #### P T, PTT #### [facility] [address] [place] [address] Dr. Tori Thomas Protein [Mass/Vol] 7.9 g/dL Normal 6.4-8.2 [facility] Comment on above: Performed By: #### P T, PTT #### [facility] [address] [place] [address] Dr. Tori Thomas Sodium [Moles/Vol] 110 mmol/L Critically low 136-145 [facility] Comment on above: Performed By: #### P T, PTT #### [facility] [address] [place] [address] Dr. Tori Thomas Urea nitrogen [Mass/Vol] 7.0 mg/dL Normal 7.0-18.0 [facility] Comment on above: Performed By: #### P T, PTT #### [facility] [address] [place] [address] Dr. Tori Thomas Urea nitrogen/Creatinine [Mass ratio] 6.9 mg/mg Normal [facility] Comment on above: Performed By: #### P T, PTT #### [facility] [address] [place] [address] Dr. Tori Thomas Lab Reportson 10-20-2022 Lab Reports [id number] Normal [facility] Patient Educationon 10-07-19 Patient Education Urology Kidney Stones Kidney stones are rock-like masses that form inside of the kidneys. Kidneys are organs that make pee (urine). A kidney stone may move into other parts of the urinary tract, including: ? The tubes that connect the kidneys to the bladder (ureters). ? The bladder. ? The tube that carries urine out of the body (urethra). Kidney stones can cause very bad pain and can block the flow of pee. The stone usually leaves your body (passes) through your pee. You may need to have a doctor take out the stone. What are the causes? Kidney stones may be caused by: ? A condition in which certain glands make too much parathyroid hormone (primary hyperparathyroidism). ? A buildup of a type of crystals in the bladder made of a chemical called uric acid. The body makes uric acid when you eat certain foods. ? Narrowing (stricture) of one or both of the ureters. ? A kidney blockage that you were born with. ? Past surgery on the kidney or the ureters, such as gastric bypass surgery. What increases the risk? You are more likely to develop this condition if: ? You have had a kidney stone in the past. ? You have a family history of kidney stones. ? You do not drink enough water. ? You eat a diet that is high in protein, salt (sodium), or sugar. ? You are overweight or very overweight (obese). What are the signs or symptoms? Symptoms of a kidney stone may include: ? Pain in the side of the belly, right below the ribs (flank pain). Pain usually spreads (radiates) to the groin. ? Needing to pee often or right away (urgently). ? Pain when going pee (urinating). ? Blood in your pee (hematuria). ? Feeling like you may vomit (nauseous). ? Vomiting. ? Fever and chills. How is this treated? Treatment depends on the size, location, and makeup of the kidney stones. The stones will often pass out of the body through peeing. You may need to: ? Drink more fluid to help pass the stone. In some cases, you may be given fluids through an IV tube put into one of your veins at the hospital. ? Take medicine for pain. ? Make changes in your diet to help keep kidney stones from coming back. Sometimes, medical procedures are needed to remove a kidney stone. This may involve: ? A procedure to break up kidney stones using a beam of light (laser) or shock waves. ? Surgery to remove the kidney stones. Follow these instructions at home: Medicines ? Take wrpc-ofa-hhabdas and prescription medicines only as told by your doctor. ? Ask your doctor if the medicine prescribed to you requires you to avoid driving or using heavy machinery. Eating and drinking ? Drink enough fluid to keep your pee pale yellow. You may be told to drink at least 8?10 glasses of water each day. This will help you pass the stone. ? If told by your doctor, change your diet. This may include: ? Limiting how much salt you eat. ? Eating more fruits and vegetables. ? Limiting how much meat, poultry, fish, and eggs you eat. ? Follow instructions from your doctor about eating or drinking restrictions. General instructions ? Collect pee samples as told by your doctor. You may need to collect a pee sample: ? 24 hours after a stone comes out. ? 8?12 weeks after a stone comes out, and every 6?12 months after that. ? Strain your pee every time you pee (urinate), for as long as told. Use the strainer that your doctor recommends. ? Do not throw out the stone. Keep it so that it can be tested by your doctor. ? Keep all follow-up visits as told by your doctor. This is important. You may need follow-up tests. How is this prevented? To prevent another kidney stone: ? Drink enough fluid to keep your pee pale yellow. This is the best way to prevent kidney stones. ? Eat healthy foods. ? Avoid certain foods as told by your doctor. You may be told to eat less protein. ? Stay at a healthy weight. Where to find more information ? National Kidney Foundation (NKF): www.kidney.org ? [facility] (UCF): www.urologyhealth.org Contact a doctor if: ? You have pain that gets worse or does not get better with medicine. Get help right away if: ? You have a fever or chills. ? You get very bad pain. ? You get new pain in your belly (abdomen). ? You pass out (faint). ? You cannot pee. Summary ? Kidney stones are rock-like masses that form inside of the kidneys. ? Kidney stones can cause very bad pain and can block the flow of pee. ? The stones will often pass out of the body through peeing. ? Drink enough fluid to keep your pee pale yellow. This information is not intended to replace advice given to you by your health care provider. Make sure you discuss any questions you have with your health care provider. Document Released: 11/29/2008 Document Revised: 10/30/2019 Document Reviewed: 10/30/2019 [employer]a Patient Education ? 2019 [employer]. Normal [facility] Urology Office/Clinic Noteon 10-06-2022 Urology Office/Clinic Note Chief Complaint UTI HPI Staff PRW pt here today due to UTI. Pt last seen in our office by LURDES 12/09/21 due to Kidney Stone & UTI. CT a/p done 12/22/21 *Rt ESWL scheduled with Dr schrader based on CT results. Pt has no showed x2 for follow up appt w/24hr urine & KUB. States it is due to Crohns Disease. Has been having recurrent UTI. +C&S done 08/11/22 *E Coli Tx'd w/Macrobid. CT a/p 05/30/22 +C&S done 05/30/22 *E Coli +C&S done 03/31/22 *E Coli +C&S done 03/27/22 *E Coli Hesitancy and burning with urination are the main signals of UTI. Smaller voids. Denies current symptoms. Denies pain/burning with urination. Does have some spotting. Unsure if it is related to menstrual cycle, just ended last week. Does have some lower Lt sided pelvic pain at times. PVR 58ml Constant Rt Flank pain. 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 Illness staff HPI reviewed and agree. Review of Systems PHQ Score Initial Depression Screen Score: 0 no fever, chills, malaise, myalgia. no rash/lesions. no chest pain, palpitations, or SOB. no abdominal pain, nausea, vomiting. no unilateral calf swelling, redness, pain Physical Exam Vitals & Measurements HR: 68(Peripheral) RR: 16 BP: 120/74 HT: 63 in HT: 160 cm WT: 58 kg WT: 127.6 lb BMI: 22.66 General: nontoxic, NAD Mouth: moist mucosa Lungs: normal respiratory effort Cardio: regular rate, good distal perfusion Abdomen: nondistended, no suprapubic distention or tenderness, no CVA tenderness Neurologic: Grossly normal Skin: No rashes or suspicious lesions Assessment/Plan 1. Recurrent UTI (N39.0: Urinary tract infection, site not specified) +C&S done 08/11/22 *E Coli Tx'd w/Macrobid. CT a/p 05/30/22 +C&S done 05/30/22 *E Coli +C&S done 03/31/22 *E Coli PVR IO 58mL most recent UTI 07/2022 UA in office today not suspicious for UTI current UTI symptoms no UTI frequency every 1-2 mos UTIs started worsening in the past 1-2 yrs Prior to that averaged UTIs very rarely hx stones yes treated last year. neg CT in May. immunosuppressed no post-menopausal/hysterecto my no proper hygiene habits: wipes front to back every time yes avoids baths/hot tubs yes avoids scented [employer] products yes urinates after sexual activity yes Today we discussed the following methods to decrease frequency of UTIs: 1) Increase fluids. Aim for at least 2L daily. 2) Ensure bladder emptying fully. PVR [id number] . 3) We discussed that there is evidence that herbal supplements may help - cranberry, probiotics, and d-mannose. Pt already taking d-mannose. When she runs out of this bottle she will switch to a combo product next month that has all 3 ingredients. Pt advised to contact our office w all future UTI sx so we can monitor urine cx results, treat appropriately (may require extended course abx), and monitor frequency of infections. Pt advised if develops fever, severe flank pain, vomiting - needs to go to ER. Will start pt of post-Coital ABX as pt has noticed a connection btwn increased sexual activity and increased UTIs. Will send Keflex 250mg 1 tab once with sexual activity. 2. Kidney stone (N20.0: Calculus of kidney) CT from [facility] 10/24/21 shows two 5mm R renal stones with slight prominence of the collecting system. R ESWL 01/07/2022 CT done 05/2022 was negative for stones. f/u 6 mos w KUB Follow-up With When Contact Information TISH KENDALL PA-C, URL In 6 months 04/07/2023 EDT [address] [place] [address] [phone] Additional Instructions: KUB Patient Education Kidney Stones, [id number]-[id number] Kayy Nolan personally scribed for Tish Kendall PA-C on 10/06/2022 15:24:26. . Documentation recorded by the marcy Rocha accurately reflects the services(s) I performed and decisions made by me. Authenticated by Tish Kendall PA-C on 10/06/2022 16:34:43. Problem List/Past Medical History Ongoing Anemia Chronic kidney disease Crohn disease ESBL E. coli carrier Flank pain Gall stone Headache Heart disease History of blood clots IBS (irritable bowel syndrome) Kidney stone Tachycardia Ureteral stone with hydronephrosis UTI (urinary tract infection) Historical No qualifying data Procedure/Surgical History ESWL of kidney (01/07/2022), ESWL of kidney (04/09/2021), Cystoscopic removal of ureteric stent (02/17/2021), Cystoscopic insertion of ureteric stent (01/19/2021), Cholecystectomy, Colonoscopy, Hemorrhoid. Medications Bentyl, 20 mg, Oral, BID cyproheptadine 4 mg Tab, 4 mg= 1 tab(s), Oral, BID folic acid 1 mg Tab, 1 mg= 1 tab(s), Oral, Daily Imitrex, 100 mg, Oral, Once Iron 100 Plus, Oral, Daily Metoprolol tartrate 50 mg Tab, 50 mg= 1 tab(s), Oral, BID Energreen, Oral, Daily potassium acetate Potassium Chloride (Eqv-K-Tab) 20 mEq oral tablet, extended release Prozac 40 mg Cap, 40 mg= 1 cap(s), Oral, Daily Vitamin B Complex oral capsule, Oral, Daily Zofra (more content not included)... Normal [facility] Comment on above: Result Comment: Elec tronically Signed By: TISH KENDALL PA-C\.br\Date and Time Signed: 10/06/22 16:34 EDT\.br\Electronically Co-Signed By: Kayy Rocha MA\.br\Date and Time Co-Signed: 10/06/22 15:24 EDT Echocardiogramon 10-01-2022 Echocardiography [facility] [address] [place] [address], [address]ly named [facility], [place] [address] TRANSTHORACIC ECHOCARDIOGRAM REPORT Patient Name: RAQUEL De León Physician: [id number] Néstor Charlton MD Study Date: 10/01/2022 Referring Physician: PERLITA LAWRENCE MRN/PID: [id number] PCP: Chandrika Lee Accession/Order#: [id number] Department Location: [facility] Date of : 1985 Fellow: Gender: F Nurse: Admit Date: Motor Bus Driver: Raquel Briggs RDCS, RVT Height: 160.02 cm CC Report to: Weight: 58.51 kg Study Type: Echocardiogram BSA: 1.61 m2 Blood Pressure: 108 /56 mmHg Diagnosis/ICD: R00.2-Palpitations; D54-Azhgzah; I47.1-Supraventricular tachycardia Indication: Hypokalemia, Chron's Disease Procedure/CPT: Echo Complete w Full Doppler-[id number] Study Detail: The following Echo studies were performed: 2D, M-Mode, Doppler and color flow. PHYSICIAN INTERPRETATION: Left Ventricle: Left ventricular systolic function is normal, with an estimated ejection fraction of 60-65%. There are no regional wall motion abnormalities. The left ventricular cavity size is normal. Spectral Doppler shows a normal pattern of left ventricular diastolic filling. Left Atrium: The left atrium is normal in size. Right Ventricle: The right ventricle is slightly enlarged. There is normal right ventricular global systolic function. Right Atrium: The right atrium is normal in size. Aortic Valve: The aortic valve is trileaflet. There is evidence of mildly elevated transaortic gradients consistent with sclerosis of the aortic valve. There is no evidence of aortic valve regurgitation. The peak instantaneous gradient of the aortic valve is 8.9 mmHg. The mean gradient of the aortic valve is 4.0 mmHg. Mitral Valve: The mitral valve is normal in structure. There is no evidence of mitral valve regurgitation. Tricuspid Valve: The tricuspid valve is structurally normal. There is trace tricuspid regurgitation. Pulmonic Valve: The pulmonic valve is not well visualized. There is no indication of pulmonic valve regurgitation. Pericardium: There is no pericardial effusion noted. Aorta: The aortic root is normal. CONCLUSIONS: 1. Left ventricular systolic function is normal with a 60-65% estimated ejection fraction. 2. Aortic valve sclerosis. QUANTITATIVE DATA SUMMARY: 2D MEASUREMENTS: Normal Ranges: Ao Root d: 2.80 cm (2.0-3.7cm) LAs: 3.20 cm (2.7-4.0cm) RVIDd: 3.40 cm (0.9-3.6cm) IVSd: 1.00 cm (0.6-1.1cm) LVPWd: 0.90 cm (0.6-1.1cm) LVIDd: 4.60 cm (3.9-5.9cm) LVIDs: 2.90 cm LV Mass Index: 92.3 g/m2 LV % FS 37.0 % LV SYSTOLIC FUNCTION BY 2D PLANIMETRY (MOD): Normal Ranges: EF-A4C View: 82.9 % (>=55%) LV DIASTOLIC FUNCTION: Normal Ranges: MV Peak E: 0.72 m/s (0.7-1.2 m/s) MV Peak A: 0.56 m/s (0.42-0.7 m/s) E/A Ratio: 1.27 (1.0-2.2) MV lateral e' 0.11 m/s MV medial e' 0.08 m/s E/e' Ratio: 6.40 (<8.0) MITRAL VALVE: Normal Ranges: MV Vmax: 1.17 m/s (<=1.3m/s) MV peak P.5 mmHg (<5mmHg) MV mean P.0 mmHg (<48mmHg) AORTIC VALVE: Normal Ranges: AoV Vmax: 1.49 m/s (<=1.7m/s) AoV Peak P.9 mmHg (<20mmHg) AoV Mean P.0 mmHg (1.7-11.5mmHg) LVOT Max Tino: 0.92 m/s (<=1.1m/s) AoV VTI: 29.60 cm (18-25cm) LVOT VTI: 19.30 cm LVOT Diameter: 2.00 cm (1.8-2.4cm) AoV Area, VTI: 2.05 cm2 (2.5-5.5cm2) AoV Area,Vmax: 1.94 cm2 (2.5-4.5cm2) AoV Dimensionless Index: 0.65 TRICUSPID VALVE/RVSP: Normal Ranges: Peak TR Velocity: 2.20 m/s RV Syst Pressure: 22.4 mmHg (< 30mmHg) PULMONIC VALVE: Normal Ranges: PV Max Tino: 0.8 m/s (0.6-0.9m/s) PV Max P.4 mmHg [id number] Néstor Charlton MD Electronically signed on 10/04/2022 at 3:21:42 PM Final Normal [facility] Lab Reportson 10-01-2022 Lab Reports [id number] Normal [facility] Patient Educationon 09-07-19 Patient Education Urology Dietary Guidelines to Help Prevent Kidney Stones Kidney stones are deposits of minerals and salts that form inside your kidneys. Your risk of developing kidney stones may be greater depending on your diet, your lifestyle, the medicines you take, and whether you have certain medical conditions. Most people can reduce their chances of developing kidney stones by following the instructions below. Depending on your overall health and the type of kidney stones you tend to develop, your dietitian may give you more specific instructions. What are tips for following this plan? Reading food labels ? Choose foods with no salt added or low-salt labels. Limit your sodium intake to less than 1500 mg per day. ? Choose foods with calcium for each meal and snack. Try to eat about 300 mg of calcium at each meal. Foods that contain 200?500 mg of calcium per serving include: ? 8 oz (237 ml) of milk, fortified nondairy milk, and fortified fruit juice. ? 8 oz (237 ml) of kefir, yogurt, and soy yogurt. ? 4 oz (118 ml) of tofu. ? 1 oz of cheese. ? 1 cup (300 g) of dried figs. ? 1 cup (91 g) of cooked broccoli. ? 1?3 oz can of sardines or mackerel. ? Most people need 1000 to 1500 mg of calcium each day. Talk to your dietitian about how much calcium is recommended for you. Shopping ? Buy plenty of fresh fruits and vegetables. Most people do not need to avoid fruits and vegetables, even if they contain nutrients that may contribute to kidney stones. ? When shopping for convenience foods, choose: ? Whole pieces of fruit. ? Premade salads with dressing on the side. ? Low-fat fruit and yogurt smoothies. ? Avoid buying frozen meals or prepared deli foods. ? Look for foods with live cultures, such as yogurt and kefir. Cooking ? Do not add salt to food when cooking. Place a salt shaker on the table and allow each person to add his or her own salt to taste. ? Use vegetable protein, such as beans, textured vegetable protein (TVP), or tofu instead of meat in pasta, casseroles, and soups. Meal planning ? Eat less salt, if told by your dietitian. To do this: ? Avoid eating processed or premade food. ? Avoid eating fast food. ? Eat less animal protein, including cheese, meat, poultry, or fish, if told by your dietitian. To do this: ? Limit the number of times you have meat, poultry, fish, or cheese each week. Eat a diet free of meat at least 2 days a week. ? Eat only one serving each day of meat, poultry, fish, or seafood. ? When you prepare animal protein, cut pieces into small portion sizes. For most meat and fish, one serving is about the size of one deck of cards. ? Eat at least 5 servings of fresh fruits and vegetables each day. To do this: ? Keep fruits and vegetables on hand for snacks. ? Eat 1 piece of fruit or a handful of berries with breakfast. ? Have a salad and fruit at lunch. ? Have two kinds of vegetables at dinner. ? Limit foods that are high in a substance called oxalate. These include: ? Spinach. ? Rhubarb. ? Beets. ? Potato chips and sudanese fries. ? Nuts. ? If you regularly take a diuretic medicine, make sure to eat at least 1?2 fruits or vegetables high in potassium each day. These include: ? Avocado. ? Banana. ? Larue, prune, carrot, or tomato juice. ? Baked potato. ? Cabbage. ? Beans and split peas. General instructions ? Drink enough fluid to keep your urine clear or pale yellow. This is the most important thing you can do. ? Talk to your health care provider and dietitian about taking daily supplements. Depending on your health and the cause of your kidney stones, you may be advised: ? Not to take supplements with vitamin C. ? To take a calcium supplement. ? To take a daily probiotic supplement. ? To take other supplements such as magnesium, fish oil, or vitamin B6. ? Take all medicines and supplements as told by your health care provider. ? Limit alcohol intake to no more than 1 drink a day for non women and 2 drinks a day for men. One drink equals 12 oz of beer, 5 oz of wine, or 1? oz of hard liquor. ? Lose weight if told by your health care provider. Work with your dietitian to find strategies and an eating plan that works best for you. What foods are not recommended? Limit your intake of the following foods, or as told by your dietitian. Talk to your dietitian about specific foods you should avoid based on the type of kidney stones and your overall health. Grains Breads. Bagels. Rolls. Baked goods. Salted crackers. Cereal. Pasta. Vegetables Spinach. Rhubarb. Beets. Canned vegetables. Pickles. Olives. Meats and other protein foods Nuts. Nut butters. Large portions of meat, poultry, or fish. Salted or cured meats. Deli meats. Hot dogs. Sausages. Dairy Cheese. Beverages Regular soft drinks. Regular vegetable juice. Seasonings and other foods Seasoning blends with salt. Salad dr (more content not included)... Normal [facility] Office Visit (Cardiology)on 09-03-2022 Follow-up visit Diagnoses/Problems Assessed History of colectomy (V45.89) (Z90.49) History of resection of large bowel (V15.29) (Z90.49) History of resection of small bowel (V15.29) (Z90.49) Hypokalemia (276.8) (E87.6) Never a smoker Body mass index (BMI) of 22.0 to 22.9 in adult (V85.1) (Z68.22) History of tachycardia (V13.89) (Z87.898) Paroxysmal atrial tachycardia (427.0) (I47.1) Syncope (780.2) (R55) Palpitations (785.1) (R00.2) Orders Palpitations, Paroxysmal atrial tachycardia, Syncope Echocardiogram; Status:Hold For - Scheduling,Retrospective Authorization; Requested for:03Sep2022; SocHx: Never a smoker Tobacco Use Screening; Status:Complete; Done: 03Sep2022 Tobacco Use Screening; Status:Complete; Done: 03Sep2022 Patient Instructions Please bring all medicines, vitamins, and herbal supplements with you when you come to the office. Prescriptions will not be filled unless you are compliant with your follow up appointments or have a follow up appointment scheduled as per instruction of your physician. Refills should be requested at the time of your visit. Follow up as needed Chief Complaint RAQUEL CORREA is being seen for a 2 month follow-up of. 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 Illness She has Crohn's disease, and she has had extensive abdominal surgeries. She has a tendency for hypokalemia, because of her Crohn's disease. The Crohn's disease is also the reason for her hemorrhoidal bleed which is torrential, and she has received several blood transfusions. She would like to have the surgery done sooner rather than later. Patient was initially seen by on 07/26/2022, for preoperative cardiac risk assessment. She went on to have hemorrhoidal surgery, which was complicated by the need for repeat surgery. She is still quite uncomfortable, and is on medical leave. 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 She has not had any recent bouts of palpitations lightheadedness presyncope or syncope. Prior to the surgery we had expressed plan to do further work-up for her long history of postural lightheadedness presyncope and palpitations. Laboratory data from 07/19/2022 showed hemoglobin of 12.4 hematocrit 38.3 platelets 405 GFR greater than 60 glucose 81 sodium 136 potassium 4.3. On the metoprolol 50 p.o. twice daily and potassium supplementation, she is no longer having much palpitations, and feels that this symptom is much improved She is awake alert oriented x3, her blood pressure is at target, laboratory data from July 19 was reviewed, her lungs are clear and her heart sounds are regular without murmur rub or gallop. She has extensive scarring in her abdomen from prior surgeries. Assessment and Recommendations : 1. Long history of palpitations, improved with repletion of potassium and initiation of metoprolol which she seems to be tolerating without untoward effects,Holter showed PAT. 2. Symptoms of vasodepressor syncope, almost resolved. 3.Will complete cardiac work up with an echocardiogram. 4.Pt to call for results. 5.Prn Follow up. 6.Life style modification reiterated. Surgical History Problems History of section History of Cholecystectomy History of Complete colonoscopy 2021 History of Hemorrhoidectomy History of Lithotripsy History of Small bowel resection Current Meds Medication NameInstruction Acidophilus Oral CapsuleTAKE DIRECTED. Bentyl 20 MG TABSTAKE 1 TABLET TWICE DAILY. Cyproheptadine HCl - 4 MG Oral Tablet1 tab twice a day FLUoxetine HCl - 40 MG Oral Capsule1 tab once daily Metoprolol Tartrate 50 MG Oral TabletTAKE 1 TABLET EVERY 12 HOURS DAILY. Nitrofurantoin Monohyd Macro 100 MG Oral Capsuletake 1 capsule by mouth twice a day WITH A MEAL or FOOD Potassium Chloride ER 20 MEQ Oral Tablet Extended ReleaseTake 1 tablet twice daily Vitamin Deficiency System-B12 1000 MCG/ML Injection Kitonce weekly Patient did not bring medication list or bottles. Updated verbally with patient Allergies Medication Augmentin TABS Recorded By: Oral Henderson; 09/03/2022 1:10:08 PM Iron Dextran SOLN Recorded By: Oral Henderson; 09/03/2022 1:10:08 PM Ultram TABS Recorded By: Oral Henderson; 09/03/2022 1:10:08 PM Vancomycin Cross Reactors Recorded By: Beatriz Hernandes; 07/26/2022 10:58:51 AM Social History Problems Daily caffeine consumption 1 decaf coffee daily Never a smoker No alcohol use No illicit drug use Review of Systems Constitutional: not feeling tired. Cardiovascular: no intermittent leg claudication and as noted in HPI. Respiratory: no cough and no shortness of breath. Gastrointestinal: no change in bowel habits and no blood in stools. Integumentary: no skin rashes. Neurological: no seizures and no frequent falls. All other systems have been reviewed and are negative for complaint. Vitals Vital Signs Recorded: 03Sep2022 01:10PM Heart Rate82, R Radial Ktfrggqg153, LUE, Sitting Uhciihdpa57, LUE, Sitting Height5 ft 3 in Crqvhq291 lb BMI Pmoqepjnui40.85 kg (more content not included)... Normal [employer] Tobacco Screening.on 023 Tobacco use status [facility] b) No [facility]Sandu mary 250 DO Work Phone: HCG ( test) IA.rapi d Ql (U)Ordered By: Devyn Falcon on 08-17-2022 HCG ( test) Ql (U) Negative [facility] HCG,Urineon 08-17-2022 Beta HCG ( test) Ql (U) Negative Normal [facility] Comment on above: Result Comment: PERF ORMED BY: [place] [address] PATHOLOGIST BALL ASSEMBLER RADHA GARCIA M.D. Performed By: #### L IPASE, PT, CBC, PTT, CMP #### [facility] [address] [place] [address] 08-17-2022 L ------ Specimen: [id number] Received: 08/17/22 Status: ARSALAN Brito Num: [id number] Spec Type: Surgical Subm Dr: Carter Lewis DO Tissues: A Hemorrhoids (HEMORRHOIDS) Procedures: TANVIR, Gross/Familia L3 Age/ Patient Sex Location Account Attending Physician CorreaRaquel M 37/F [place] [id number] Carter Lewis,DO SPEC NUM: [id number] RECD: 08/17/22 STATUS: ARSALAN BRITO NUM: [id number] BILLY: 08/17/[address] [facility] [address]: Carter Lewis DO ENTERED: 08/17/[address]: TONIA TYPE: Surgical DEPT: S ORDERED: HE, Gross/Micro L3 ORDERED: HE, Gross/Micro L3 Pathological Diagnosis Rectum, hemorrhoidectomy: - Hemorrhoids, with a dilated and thrombosed vessel and squamous epithelium, negative for dysplasia. - Focal ulceration with underlying pyogenic granuloma, negative for malignancy. Clinical Information Thrombosed hemorrhoid Gross Description Received in formalin labeled with the patient's name, number and thrombosed hemorrhoids is a 2.5 x 2.5 x 1.8 cm aggregate of baca-bruno rubbery tissue that is partially surfaced by baca- pink mucosa. The cut surface is rubbery, baca-pink with focal thrombosed vessels. [employer] sections are submitted in one cassette labeled A1. Microscopic Description One glass slide with H E stained material has been examined. The microscopic findings support the above pathologic diagnosis. Specimen: [id number] Received: 08/17/22 Status: ARSALAN Lindseybrant Num: [id number] Spec Type: Surgical Subm Dr: Carter Lewis DO Tissues: A Hemorrhoids (HEMORRHOIDS) Procedures: Lopez RAMEY/Familia L3 Patient: Raquel Correa [id number] (Continued) Specimen: [id number] Received: 08/17/22 (Continued) Signed (signature on file) Diana Santana MD 08/18/222003 Specimen: Received: 08/17/22 Status: ARSALAN Brito Num: [id number] Spec Type: Surgical Subm Dr: Carter Lewis DO Tissues: A Hemorrhoids (HEMORRHOIDS) Procedures: Lopez RAMEY/Familia L3 Patient: Raquel Correa [id number] (Continued) Specimen: [id number] Received: 08/17/22 (Continued) CPT Codes 90669 Specimen: [id number] Received: 08/17/22 Status: ARSALAN Brito Num: [id number] Spec Type: Surgical Subm Dr: Carter Lewis DO Tissues: A Hemorrhoids (HEMORRHOIDS) Procedures: Lopez RAMEY/Familia L3 Patient: Lynnette Correaa Amalia [id number] (Continued) Signed (signature on file) Diana Santana MD 08/18/222003 [facility] CULTURE URINEon 08-13-2022 CULTURE URINE Isolate 1 Escherichia coli >100,000 cfu/mL of ORGANISM 1 Escherichia coli ANTIBIOTIC M.I.C RX STATUS Ampicillin >=32 R F Ampicillin/Sulbactam 16 I F Piperacillin/Tazobactam <=4 S F Cefazolin >=64 R F Ceftazidime 16 R F Ceftriaxone >=64 R F Ertapenem <=0.5 S F Imipenem <=0.25 S F Amikacin <=2 S F Gentamicin <=1 S F Tobramycin <=1 S F Ciprofloxacin <=0.25 S F Levofloxacin <=0.12 S F Nitrofurantoin <=16 S F Trimethoprim/Sulfamethoxaz ole <=20 S F Normal [facility] Comment on above: Performed By: #### U AMIC #### [facility] [address] [place] [address] Dr. Tori Thomas UA RANDOM W/MICROSCOPICon BACTERIA LARGE Abnormal NONE SEEN [facility] Comment on above: Performed By: #### U AMIC #### [facility] [address] [address] [address] Tori Thomas Bilirubin Ql (U) Negative Normal NEGATIVE [facility] Comment on above: Performed By: #### U AMIC #### [facility] [address] [address] [address] Tori Thomas CA OX CRYSTALS FEW Normal [facility] Comment on above: Performed By: #### U AMIC #### [facility] [address] [address] [address] Tori Thomas CAST NONE SEEN Normal NONE SEEN [facility] Comment on above: Performed By: #### U AMIC #### [facility] [address] [address] [address] Tori Thomas Clarity (U) CLEAR Normal CLEAR [facility] Comment on above: Performed By: #### U AMIC #### [facility] [address] [address] [address] Tori Thomas Color (U) DK. ORANGE Abnormal YELLOW [facility] Comment on above: Performed By: #### U AMIC #### [facility] [address] [address] [address] Tori Thomas Crystals LM Nom (Urine sed) SEEN Abnormal NONE SEEN [facility] Comment on above: Performed By: #### U AMIC #### [facility] [address] [place] [address] Dr. Tori Thomas Epithelial cells LM Ql (Urine sed) MODERATE Abnormal NONE SEEN /RARE [facility] Comment on above: Performed By: #### U AMIC #### [facility] [address] [address] [address] Tori Thomas Glucose Ql (U) Negative Normal NEGATIVE [facility] Comment on above: Performed By: #### U AMIC #### [facility] [address] [address] [address] Tori Thomas Hemoglobin Ql (U) TRACE-INTACT Abnormal NEGATIVE [facility] Comment on above: Performed By: #### U AMIC #### [facility] [address] [address] [address] Tori Thomas Ketones Ql (U) TRACE Abnormal NEGATIVE [facility] Comment on above: Performed By: #### U AMIC #### [facility] [address] [place] [address] Dr. Tori Thomas LEUKOCYTES MODERATE Abnormal NEGATIVE [facility] Comment on above: Performed By: #### U AMIC #### [facility] [address] [place] [address] Dr. Tori Thomas MUCOUS NONE SEEN Normal NONE SEEN [facility] Comment on above: Performed By: #### U AMIC #### [facility] [address] [place] [address] Dr. Tori Thomas Nitrite Ql (U) Positive Abnormal NEGATIVE [facility] Comment on above: Performed By: #### U AMIC #### [facility] [address] [place] [address] Dr. Tori Thomas pH (U) 5.5 [pH] Normal 5-9 [facility] Comment on above: Performed By: #### U AMIC #### [facility] [address] [place] [address] Dr. Tori Thomas RBC 5-10 Abnormal 0-2 [facility] Comment on above: Performed By: #### U AMIC #### [facility] [address] [place] [address] Dr. Tori Thomas SPEC GRAVITY 1.025 Normal 1.005-<=1. 025 [facility] Comment on above: Performed By: #### U AMIC #### [facility] [address] [place] [address] Dr. Tori Thomas UA PROTEIN 30 mg/dl Abnormal NEGATIVE/ TRACE [facility] Comment on above: Performed By: #### U AMIC #### [facility] [address] [place] [address] Dr. Tori Thomas Urobilinogen Qn (U) 1.0 {Diana'U}/dL Normal 0.2 - 1. 0 [facility] Comment on above: Performed By: #### U AMIC #### [facility] [address] [place] [address] Dr. Tori Thomas WBC 50-75 Abnormal NONE SEEN [facility] Comment on above: Performed By: #### U AMI #### [facility] [address] [address] [address] Tori Thomas HCG ( test) IArafiq rojas Ql (U)Ordered By: Nam Christensen on 08-02-2022 HCG ( test) Ql (U) Negative [facility] HCG,Urineon 08-02-2022 Beta HCG ( test) Ql (U) Negative Normal [facility] Comment on above: Result Comment: PERF ORMED BY: [facility] [address] [place] [address] PATHOLOGIST BALL ASSEMBLER RADHA GRACIA M.D. Performed By: #### C BC, MG, CMP, ESR, LIPASE, TSH3 #### [facility] [address] 08-02-2022 L ------ Specimen: [id number] Received: 08/02/22 Status: ARSALAN Brito Num: [id number] Spec Type: Surgical Subm Dr: Carter Lewis DO Tissues: A Hemorrhoids (HEMORRHOIDS) Procedures: TANVIR, Gross/Familia L3 Age/ Patient Sex Location Account Attending Physician Raquel Correa 37/F [place] [id number] Carter Lewis DO SPEC NUM: [id number] RECD: 08/02/22 STATUS: ARSALAN BRITO NUM: [id number] BILLY: 08/02/22-[address] [facility] [address]: Carter Lewis DO ENTERED: 08/02/[address]: TONIA TYPE: Surgical DEPT: S ENTERED BY: [id number] RECV BY: [id number] ORDERED: HE, Gross/Micro L3 ORDERED: HE, Gross/Micro L3 Pathological Diagnosis Anus, hemorrhoidectomy: - Anorectal mucosa with changes consistent with hemorrhoids. Clinical Information Hemorrhoids Gross Description Received in formalin labeled with the patient's name, number and hemorrhoids is a 2.5 x 2.5 x 1.7 cm aggregate of baca red rubbery tissue which is partially surface by baca red mucosa. The cut surface is rubbery, baca-red.. [employer] sections are submitted in one cassette labeled A1. Microscopic Description One glass slide with H E stained material has been examined. The microscopic findings support the above pathologic diagnosis. CPT Codes 92386 Specimen: [id number] Received: 08/02/22 Status: ARSALAN Brito Num: [id number] Spec Type: Surgical Subm Dr: Carter Lewis DO Tissues: A Hemorrhoids (HEMORRHOIDS) Procedures: Lopez RAMEY/Familia L3 Patient: Raquel Correa [id number] (Continued) Signed (signature on file) Alla Carlisle MD 08/03/22 1221 [facility] Office Visit (Cardiology)on 07-26-2022 Follow-up visit Diagnoses/Problems Assessed History of resection of large bowel (V15.29) (Z90.49) History of colectomy (V45.89) (Z90.49) Crohn disease (555.9) (K50.90) History of resection of small bowel (V15.29) (Z90.49) History of tachycardia (V13.89) (Z87.898) Hypokalemia (276.8) (E87.6) Preop cardiovascular exam (V72.81) (Z01.810) Body mass index (BMI) of 24.0 to 24.9 in adult (V85.1) (Z68.24) Patient Instructions Please bring all medicines, vitamins, and herbal supplements with you when you come to the office. Prescriptions will not be filled unless you are compliant with your follow up appointments or have a follow up appointment scheduled as per instruction of your physician. Refills should be requested at the time of your visit. OK to proceed with surgical procedure. Patient is clear from cardiac standpoint. Follow up in August after surgery Chief Complaint POC Hemmroidectomy Debbie. 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 Barbour regarding preoperative cardiac risk assessment for hemorrhoidal surgery, because of some abnormality on her EKG. I did review her EKG from 05/09/2022, and also her EKG from today. She is an active female, who does not report any cardiac symptoms in particular she denies any chest discomfort pressure tightness heaviness palpitations lightheadedness orthopnea paroxysmal nocturnal dyspnea dependent edema or claudication. She has Crohn's disease, and she has had extensive abdominal surgeries. She has a tendency for hypokalemia, because of her Crohn's disease. The Crohn's disease is also the reason for her hemorrhoidal bleed which is torrential, and she has received several blood transfusions. She would like to have the surgery done sooner rather than later. I reviewed her EKG from today, and also her prior EKG from April 2022. I do not see any diagnostic ST-T abnormalities or pathological Q waves. I reviewed her laboratory data from 07/19/2022. Her GFR is greater than 60 her potassium is 4.3. She is awake alert oriented x3, her blood pressure is at target, laboratory data from July 19 was reviewed, her lungs are clear and her heart sounds are regular without murmur rub or gallop. She has extensive scarring in her abdomen from prior surgeries. Assessment: Patient may proceed to hemorrhoidal surgery without any additional cardiac work-up at this time. This patient has had colonoscopy and additional surgical procedures within the last year to year and a half without any untoward events. Patient to follow-up with me about 3 months after her surgery. Thank you Dr. Lewis for allowing us to participate in Raquel's care, please do not hesitate to call if any further questions arise, Sincerely, Perlita Lawrence MD [facility] Surgical History Problems History of section History of Cholecystectomy History of Complete colonoscopy 2021 History of Lithotripsy History of Small bowel resection Current Meds Medication NameInstruction Acidophilus Oral CapsuleTAKE DIRECTED. Bentyl 20 MG TABSTAKE 1 TABLET TWICE DAILY. Cyproheptadine HCl - 4 MG Oral Tablet1 tab twice a day FLUoxetine HCl - 40 MG Oral Capsule1 tab once daily Metoprolol Tartrate 50 MG Oral TabletTAKE 1 TABLET EVERY 12 HOURS DAILY. Potassium Chloride ER 20 MEQ Oral Tablet Extended ReleaseTake 1 tablet twice daily Vitamin Deficiency System-B12 1000 MCG/ML Injection Kitonce weekly Allergies Medication Vancomycin Cross Reactors Recorded By: Beatriz Hernandes; 07/26/2022 10:58:51 AM Social History Problems Daily caffeine consumption 1 decaf coffee daily Never a smoker No alcohol use No illicit drug use Vitals Vital Signs Recorded: 26Jul2022 11:06AMRecorded: 26Jul2022 11:05AM Rdnfmdub616, LUE, Numxadi603, RUE, Sitting Dbbdwppzh46, LUE, Yauyays33, RUE, Sitting Heart Rate50, Apical Height5 ft 3 in Tlajdu433 lb 12 oz BMI Tjhjsbocmk24.93 kg/m2 BSA Calculated1.67 Tobacco Useb) No PHQ-2 #1. Over the last 2 weeks have you felt down, depressed or hopeless? (If yes, answer PHQ-9 below)No PHQ-2 #2. Over the last 2 weeks have you felt little interest or pleasure in doing things? (If yes, answer PHQ-9 below)No Falls Screening (Age 18+)a) No falls within the last year EKG done in office today Physical Exam GENERAL: Well developed, well nourished, in no acute distress. CHEST: Symmetrical and non-tender. INTEGUMENT: Skin warm and dry, without gross excoriations or lesions. HEENT: No gross abnormalities of conjunctiva, teeth, gums, oral mucosa. NECK: Supple, no JVD, no bruit. Thyroid not palpable. Carotid upstrokes normal. NEURO/PSYCH: Alert and oriented x 3; appropriate behavior and responses, grossly normal cerebellar function with normal balance and coordination. LUNGS: Clear to auscultation bilaterally; normal respiratory effort. HEART: Rate and rhythm regular with no evident murmur; no gallop appreciated. There (more content not included)... Normal [employer] [facility] [facility] Visit Presurgicalon 0 07-26-2022 Office Visit Presurgical Diagnoses/Problems Assessed History of resection of large bowel (V15.29) (Z90.49) History of colectomy (V45.89) (Z90.49) Crohn disease (555.9) (K50.90) History of resection of small bowel (V15.29) (Z90.49) History of tachycardia (V13.89) (Z87.898) Hypokalemia (276.8) (E87.6) Preop cardiovascular exam (V72.81) (Z01.810) Body mass index (BMI) of 24.0 to 24.9 in adult (V85.1) (Z68.24) Patient Instructions Please bring all medicines, vitamins, and herbal supplements with you when you come to the office. Prescriptions will not be filled unless you are compliant with your follow up appointments or have a follow up appointment scheduled as per instruction of your physician. Refills should be requested at the time of your visit. OK to proceed with surgical procedure. Patient is clear from cardiac standpoint. Follow up in August after surgery Chief Complaint POC Hemmroidectomy Debbie. 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 Barbour regarding preoperative cardiac risk assessment for hemorrhoidal surgery, because of some abnormality on her EKG. I did review her EKG from 05/09/2022, and also her EKG from today. She is an active female, who does not report any cardiac symptoms in particular she denies any chest discomfort pressure tightness heaviness palpitations lightheadedness orthopnea paroxysmal nocturnal dyspnea dependent edema or claudication. She has Crohn's disease, and she has had extensive abdominal surgeries. She has a tendency for hypokalemia, because of her Crohn's disease. The Crohn's disease is also the reason for her hemorrhoidal bleed which is torrential, and she has received several blood transfusions. She would like to have the surgery done sooner rather than later. I reviewed her EKG from today, and also her prior EKG from April 2022. I do not see any diagnostic ST-T abnormalities or pathological Q waves. I reviewed her laboratory data from 07/19/2022. Her GFR is greater than 60 her potassium is 4.3. She is awake alert oriented x3, her blood pressure is at target, laboratory data from July 19 was reviewed, her lungs are clear and her heart sounds are regular without murmur rub or gallop. She has extensive scarring in her abdomen from prior surgeries. Assessment: Patient may proceed to hemorrhoidal surgery without any additional cardiac work-up at this time. This patient has had colonoscopy and additional surgical procedures within the last year to year and a half without any untoward events. Patient to follow-up with me about 3 months after her surgery. Thank you Dr. Lewis for allowing us to participate in Raquel's care, please do not hesitate to call if any further questions arise, Sincerely, Perlita Lawrence MD [facility] Surgical History Problems History of section History of Cholecystectomy History of Complete colonoscopy 2021 History of Lithotripsy History of Small bowel resection Current Meds Medication NameInstruction Acidophilus Oral CapsuleTAKE DIRECTED. Bentyl 20 MG TABSTAKE 1 TABLET TWICE DAILY. Cyproheptadine HCl - 4 MG Oral Tablet1 tab twice a day FLUoxetine HCl - 40 MG Oral Capsule1 tab once daily Metoprolol Tartrate 50 MG Oral TabletTAKE 1 TABLET EVERY 12 HOURS DAILY. Potassium Chloride ER 20 MEQ Oral Tablet Extended ReleaseTake 1 tablet twice daily Vitamin Deficiency System-B12 1000 MCG/ML Injection Kitonce weekly Allergies Medication Vancomycin Cross Reactors Social History Problems Daily caffeine consumption 1 decaf coffee daily Never a smoker No alcohol use No illicit drug use Vitals Vital Signs Recorded: 26Jul2022 11:06AM Systolic: 100, LUE, Sitting Diastolic: 64, LUE, Sitting Recorded: 26Jul2022 11:05AM Heart Rate: 50, Apical Systolic: 104, RUE, Sitting Diastolic: 70, RUE, Sitting Height: 5 ft 3 in Weight: 140 lb 12 oz BMI Calculated: 24.93 kg/m2 BSA Calculated: 1.67 Tobacco Use: b) No PHQ-2 #1. Over the last 2 weeks have you felt down, depressed or hopeless? (If yes, answer PHQ-9 below): No PHQ-2 #2. Over the last 2 weeks have you felt little interest or pleasure in doing things? (If yes, answer PHQ-9 below): No Falls Screening (Age 18+): a) No falls within the last year EKG done in office today Physical Exam GENERAL: Well developed, well nourished, in no acute distress. CHEST: Symmetrical and non-tender. INTEGUMENT: Skin warm and dry, without gross excoriations or lesions. HEENT: No gross abnormalities of conjunctiva, teeth, gums, oral mucosa. NECK: Supple, no JVD, no bruit. Thyroid not palpable. Carotid upstrokes normal. NEURO/PSYCH: Alert and oriented x 3; appropriate behavior and responses, grossly normal cerebellar function with normal balance and coordination. LUNGS: Clear to auscultation bilaterally; normal respiratory effort. HEART: Rate and rhythm regular with no evident murmur; no gallop appreciated. Th (more content not included)... Normal [employer] Tobacco Screening.on 023 Adult depression screening assessment No [facility] [employer] 250 DO Work Phone: Fall risk assessment a) No falls within the last year [facility] [employer] 250 DO Work Phone: Tobacco use status [facility] b) No [facility] [employer] 250 DO Work Phone: Basic Metabolic Panelon 06-28 Anion gap [Moles/Vol] 12.9 mmol/L Normal 6.0-15.0 [facility] Comment on above: Performed By: #### C BC, MG, CMP, ESR, LIPASE, TSH3 #### [facility] [address] [place] [address] Calcium [Mass/Vol] 9.3 mg/dL Normal 8.2-10.2 [facility] Comment on above: Result Comment: PERF ORMED BY: [place] [address] PATHOLOGIST BALL ASSEMBLER RADHA GARCIA M.D. Performed By: #### C BC, MG, CMP, ESR, LIPASE, TSH3 #### [facility] [address] [place] [address] Chloride [Moles/Vol] 104 mmol/L Normal 95-114 [facility] Comment on above: Performed By: #### C BC, MG, CMP, ESR, LIPASE, TSH3 #### [facility] [address] CO2 [Moles/Vol] 23.4 mmol/L Normal 22.0-30.0 [facility] Comment on above: Performed By: #### C BC, MG, CMP, ESR, LIPASE, TSH3 #### [address] Creatinine [Mass/Vol] 0.98 mg/dL Normal 0.44-1.03 [facility] Comment on above: Performed By: #### C BC, MG, CMP, ESR, LIPASE, TSH3 #### [address] Estimated GFR ( Letty > 60 [facility] Comment on above: Result Comment: GFR estimated reference range: According to KDOQI guidelines, <60 ml/min/1.73m2 is sufficient to diagnose a patient with chronic kidney disease. Performed By: #### C BC, MG, CMP, ESR, LIPASE, TSH3 #### [address] Estimated GFR (Non- Am > 60 [facility] Comment on above: Performed By: #### C BC, MG, CMP, ESR, LIPASE, TSH3 #### [address] Glucose [Mass/Vol] 81 mg/dL Normal 70-100 [facility] Comment on above: Result Comment: [place] om Glucose Reference Range is dependent on time and content of last meal. Glucose of more than 200 mg/dL in a nonstressed, ambulatory subject supports the diagnosis of Diabetes Mellitus. ADA recommended reference range Performed By: #### C BC, MG, CMP, ESR, LIPASE, TSH3 #### [address] Potassium [Moles/Vol] 4.3 mmol/L Normal 3.5-5.1 [facility] Comment on above: Performed By: #### C BC, MG, CMP, ESR, LIPASE, TSH3 #### [facility] [address] Sodium [Moles/Vol] 136 mmol/L Normal 136-146 [facility] Comment on above: Performed By: #### C BC, MG, CMP, ESR, LIPASE, TSH3 #### [facility] [address] Urea nitrogen [Mass/Vol] 6 mg/dL Low 03-19 [facility] Comment on above: Performed By: #### C BC, MG, CMP, ESR, LIPASE, TSH3 #### [address] Basophils Auto (Bld) [#/Vol] Ordered By: Carter Lewis on 07-19-2022 Basophils (Bld) [#/Vol] 0.0 10*3/uL 0.0-0.2 [facility] Basophils/100 WBC Auto (Bld) Ordered By: Carter Lewis on 07-19-2022 Basophils/100 WBC (Bld) 0.6 % . [facility] Complete Blood Count Auto Di ffon 07-19-2022 Basophils (Bld) [#/Vol] 0.0 10*3/uL Normal 0.0-0.2 [facility] Comment on above: Result Comment: PERF ORMED BY: [place] [address] PATHOLOGIST BALL ASSEMBLER RADHA GARCIA M.D. Performed By: #### C BC, MG, CMP, ESR, LIPASE, TSH3 #### [address] Basophils/100 WBC (Bld) 0.6 % Normal . [facility] Comment on above: Performed By: #### C BC, MG, CMP, ESR, LIPASE, TSH3 #### [address] Eosinophils (Bld) [#/Vol] 0.1 10*3/uL Normal 0.0-0.45 [facility] Comment on above: Performed By: #### C BC, MG, CMP, ESR, LIPASE, TSH3 #### [address] Eosinophils/100 WBC (Bld) 1.0 % Normal . [facility] Comment on above: Performed By: #### C BC, MG, CMP, ESR, LIPASE, TSH3 #### [address] Erythrocyte distribution width (RBC) [Ratio] 19.7 % High 11.9-15.3 [facility] Comment on above: Performed By: #### C BC, MG, CMP, ESR, LIPASE, TSH3 #### [address] Hematocrit (Bld) [Volume fraction] 38.3 % Normal 34.0-46.4 [facility] Comment on above: Performed By: #### C BC, MG, CMP, ESR, LIPASE, TSH3 #### [address] Hemoglobin (Bld) [Mass/Vol] 12.4 g/dL Normal 11.8-15.4 [facility] Comment on above: Performed By: #### C BC, MG, CMP, ESR, LIPASE, TSH3 #### [address] Lymphocytes (Bld) [#/Vol] 1.9 10*3/uL Normal 1.00-4.8 [facility] Comment on above: Performed By: #### C BC, MG, CMP, ESR, LIPASE, TSH3 #### [address] Lymphocytes/100 WBC (Bld) 27.1 % Normal . [facility] Comment on above: Performed By: #### C BC, MG, CMP, ESR, LIPASE, TSH3 #### [address] MCH (RBC) [Entitic mass] 26.2 pg Normal 24.7-34.3 [facility] Comment on above: Performed By: #### C BC, MG, CMP, ESR, LIPASE, TSH3 #### [address] MCV (RBC) [Entitic vol] 80.9 fL Normal 80-100 [facility] Comment on above: Performed By: #### C BC, MG, CMP, ESR, LIPASE, TSH3 #### [address] Mean Corpuscular HGB Conc 32.4 g/dL Normal 32.0-35.0 [facility] Comment on above: Performed By: #### C BC, MG, CMP, ESR, LIPASE, TSH3 #### [address] Monocytes (Bld) [#/Vol] 0.6 10*3/uL Normal 0.0-0.8 [facility] Comment on above: Performed By: #### C BC, MG, CMP, ESR, LIPASE, TSH3 #### [address] Monocytes/100 WBC (Bld) 7.9 % Normal . [facility] Comment on above: Performed By: #### C BC, MG, CMP, ESR, LIPASE, TSH3 #### [address] Neutrophils (Bld) [#/Vol] 4.6 10*3/uL Normal 1.8-7.7 [facility] Comment on above: Performed By: #### C BC, MG, CMP, ESR, LIPASE, TSH3 #### [address] Neutrophils/100 WBC (Bld) 63.4 % Normal . [facility] Comment on above: Performed By: #### C BC, MG, CMP, ESR, LIPASE, TSH3 #### [address] NRBC% 0.1 /100{WBC} Normal 0-0.5 [facility] Comment on above: Performed By: #### C BC, MG, CMP, ESR, LIPASE, TSH3 #### [facility] [address] Platelet mean volume (Bld) [Entitic vol] 8.1 fL Normal 6.3-10.7 [facility] Comment on above: Performed By: #### C BC, MG, CMP, ESR, LIPASE, TSH3 #### [facility] [address] Platelets (Bld) [#/Vol] 405 10*3/uL Normal 150-450 [facility] Comment on above: Performed By: #### C BC, MG, CMP, ESR, LIPASE, TSH3 #### [facility] [address] RBC (Bld) [#/Vol] 4.73 10*6/uL Normal 3.60-5.00 [facility] Comment on above: Performed By: #### C BC, MG, CMP, ESR, LIPASE, TSH3 #### [facility] [address] WBC (Bld) [#/Vol] 7.2 10*3/uL Normal 3.8-11.6 [facility] Comment on above: Performed By: #### C BC, MG, CMP, ESR, LIPASE, TSH3 #### [facility] [address] Creatinine and Glomerular fi ltration rate.predicted panel (S/P/Bld)Ordered By: Carter Lewis on 07-19-2022 Creatinine [Mass/Vol] 0.98 mg/dL 0.44-1.03 [facility] Eosinophils Auto (Bld) [#/Vo l]Ordered By: Carter Lewis on 07-19-2022 Eosinophils (Bld) [#/Vol] 0.1 10*3/uL 0.0-0.45 [facility] Eosinophils/100 WBC Auto (Bl d)Ordered By: Carter Lewis on 07-19-2022 Eosinophils/100 WBC (Bld) 1.0 % . [facility] Erythrocyte distribution wid th Auto (RBC) [Ratio]Ordered By: Carter Lewis on 07-19-2022 Erythrocyte distribution width (RBC) [Ratio] 19.7 % 11.9-15.3 [facility] Estimated glomerular filtrat ion rate (GFR) non- AmericanOrdered By: Carter Lewis on 07-19-2022 GFR/1.73 sq M.predicted among non-blacks MDRD (S/P/Bld) [Vol rate/Area] > 60 mL/Min [facility] Hematocrit Auto (Bld) [Volum e fraction]Ordered By: Carter Lewis on 07-19-2022 Hematocrit (Bld) [Volume fraction] 38.3 % 34.0-46.4 [facility] Hemoglobin [Mass/volume] in BloodOrdered By: Carter Lewis on 07-19-2022 Hemoglobin (Bld) [Mass/Vol] 12.4 g/dL 11.8-15.4 [facility] Leukocytes [#/volume] correc rosales for nucleated erythrocytes in Blood by Automated counOrdered By: Carter Lewis on 07-19-2022 WBC corrected for nucl RBC Auto (Bld) [#/Vol] 7.2 10*3/uL 3.8-11.6 [facility] Lymphocytes Auto (Bld) [#/Vo l]Ordered By: Carter Lewis on 07-19-2022 Lymphocytes (Bld) [#/Vol] 1.9 10*3/uL 1.00-4.8 [facility] Lymphocytes/100 WBC Auto (Bl d)Ordered By: Carter Lewis on 07-19-2022 Lymphocytes/100 WBC (Bld) 27.1 % . [facility] MCH Auto (RBC) [Entitic mass ]Ordered By: Carter Lewis on 07-19-2022 MCH (RBC) [Entitic mass] 26.2 pg 24.7-34.3 [facility] MCHC Auto (RBC) [Mass/Vol]Or dered By: Carter Lewis on 07-19-2022 MCHC (RBC) [Mass/Vol] 32.4 g/dL 32.0-35.0 [facility] MCV Auto (RBC) [Entitic vol] Ordered By: Carter Lewis on 07-19-2022 MCV (RBC) [Entitic vol] 80.9 fL 80-100 [facility] Monocytes Auto (Bld) [#/Vol] Ordered By: Carter Lewis on 07-19-2022 Monocytes (Bld) [#/Vol] 0.6 10*3/uL 0.0-0.8 [facility] Monocytes/100 WBC Auto (Bld) Ordered By: Carter Lewis on 07-19-2022 Monocytes/100 WBC (Bld) 7.9 % . [facility] Neutrophils Auto (Bld) [#/Vo l]Ordered By: Carter Lewis on 07-19-2022 Neutrophils (Bld) [#/Vol] 4.6 10*3/uL 1.8-7.7 [facility] Neutrophils/100 WBC Auto (Bl d)Ordered By: Carter Lewis on 07-19-2022 Neutrophils/100 WBC (Bld) 63.4 % . [facility] No Panel InformationOrdered By: Crater Lewis on 07-19-2022 Estimated GFR () > 60 mL/Min [facility] Comment on above: GFR estimated refere nce range: According to KDOQI guidelines, <60 ml/min/1.73m2 is sufficient to diagnose a patient with chronic kidney disease. Pharmacy Creatinine Clearance (Chem N/A [facility] Nucleated erythrocytes [Pres ence] in Blood by Automated countOrdered By: Carter Lewis on 07-19-2022 Nucleated RBC Auto Ql (Bld) 0.1 /100{WBC} 0-0.5 [facility] Platelet mean volume Auto (B ld) [Entitic vol]Ordered By: Carter Lewis on 07-19-2022 Platelet mean volume (Bld) [Entitic vol] 8.1 fL 6.3-10.7 [facility] Platelets Auto (Bld) [#/Vol] Ordered By: Carter Lewis on 07-19-2022 Platelets (Bld) [#/Vol] 405 10*3/uL 150-450 [facility] RBC Auto (Bld) [#/Vol]Ordere d By: Carter Lewis on 07-19-2022 RBC (Bld) [#/Vol] 4.73 10*6/uL 3.60-5.00 [facility] Serum or plasma anion gap de terminationOrdered By: Carter Lewis on 07-19-2022 Anion gap [Moles/Vol] 12.9 mmol/L 6.0-15.0 [facility] Serum or plasma calcium mariana urement (mass/volume)Ordered By: Carter Lewis on 07-19-2022 Calcium [Mass/Vol] 9.3 mg/dL 8.2-10.2 [facility] Serum or plasma chloride jaqui surement (moles/volume)Ordered By: Carter Lewis on 07-19-2022 Chloride [Moles/Vol] 104 mmol/L 95-114 [facility] Serum or plasma glucose mariana urement (mass/volume)Ordered By: Carter Lewis on 07-19-2022 Glucose [Mass/Vol] 81 mg/dL 70-100 [facility] Comment on above: ADA recommended refe rence rangeRandom Glucose Reference Range is dependent on time and content of last meal. Glucose of more than 200 mg/dL in a nonstressed, ambulatory subject supports the diagnosis of Diabetes Mellitus. Serum or plasma potassium me asurement (moles/volume)Ordered By: Carter Lewis on 07-19-2022 Potassium [Moles/Vol] 4.3 mmol/L 3.5-5.1 [facility] Serum or plasma sodium measu rement (moles/volume)Ordered By: Carter Lewis on 07-19-2022 Sodium [Moles/Vol] 136 mmol/L 136-146 [facility] Serum or plasma total carbon dioxide measurement (moles/volume)Ordered By: Carter eLwis on 07-19-2022 CO2 [Moles/Vol] 23.4 mmol/L 22.0-30.0 [facility] Serum or plasma urea nitroge n measurement (mass/volume)Ordered By: Carter Lewis on 07-19-2022 Urea nitrogen [Mass/Vol] 6 mg/dL 03-19 [facility] WBC Auto (Bld) [#/Vol]Ordere d By: Carter Lewis on 07-19-2022 WBC (Bld) [#/Vol] 7.2 10*3/uL 3.8-11.6 [facility] Arterial blood standard base excess determination by calculationOrdered By: Be Azul on 06-14-2022 Base excess standard Calc (BldA) [Moles/Vol] 0 mmol/L -2-3 [facility] Blood carbon dioxide, total measurement by calculation (moles/volume)Ordered By: Be Azul on 06-14-2022 CO2 Calc (Bld) [Moles/Vol] 26 mmol/L [facility] CT biopsyOrdered By: Cora Azul on 06-14-2022 Hematocrit (Bld) [Volume fraction] 39.0 % 38.0-51.0 [facility] Glucose Glucometer (BldC) [M ass/Vol]Ordered By: Be Azul on 06-14-2022 Glucose [Mass/Vol] 112 mg/dL 70-105 [facility] HCG ( test) IA.rapi d Ql (U)Ordered By: Be Azul on 06-14-2022 HCG ( test) Ql (U) Negative [facility] HCG,Urineon 06-14-2022 Beta HCG ( test) Ql (U) Negative Normal [facility] Comment on above: Result Comment: PERF ORMED BY: [place] [address] PATHOLOGIST [employer]SEM[employer]ER RADHA GARCIA M.D. Performed By: #### C BC, MG, CMP, ESR, LIPASE, TSH3 #### [facility] [address] Hemoglobin Calc (Bld) [Mass/ Vol]Ordered By: Be Azul on 06-14-2022 Hemoglobin (Bld) [Mass/Vol] 13.3 g/dL 12.0-17.0 [facility] ISTAT ABGon 06-14-2022 CO2 [Moles/Vol] 26 mmol/L Normal [facility] Comment on above: Performed By: #### C BC, MG, CMP, ESR, LIPASE, TSH3 #### [facility] [address] Glucose [Mass/Vol] 112 mg/dL High 70-105 [facility] Comment on above: Result Comment: PERF ORMED BY: [place] [address] PATHOLOGIST [employer] ASSEM[employer] RADHA GARCIA M.D. Performed By: #### C BC, MG, CMP, ESR, LIPASE, TSH3 #### [address] HCO3 (Bld) [Moles/Vol] 24.5 mmol/L Normal 22.0-28.0 [facility] Comment on above: Performed By: #### C BC, MG, CMP, ESR, LIPASE, TSH3 #### [address] Hematocrit (Bld) [Volume fraction] 39.0 % Normal 38.0-51.0 [facility] Comment on above: Performed By: #### C BC, MG, CMP, ESR, LIPASE, TSH3 #### [address] Hemoglobin (Bld) [Mass/Vol] 13.3 g/dL Normal 12.0-17.0 [facility] Comment on above: Performed By: #### C BC, MG, CMP, ESR, LIPASE, TSH3 #### [address] ISTAT Base Excess 0 mmol/L Normal -2 TO 3 [facility] Comment on above: Performed By: #### C BC, MG, CMP, ESR, LIPASE, TSH3 #### [address] ISTAT Ionized Calcium 1.21 mol/L Normal 1.12-1.32 [facility] Comment on above: Performed By: #### C BC, MG, CMP, ESR, LIPASE, TSH3 #### [address] ISTAT PCO2 36.9 mm[Hg] Normal 35-51 [facility] Comment on above: Performed By: #### C BC, MG, CMP, ESR, LIPASE, TSH3 #### [address] ISTAT Ph 7.430 Normal 7.31-7.45 [facility] Comment on above: Performed By: #### C BC, MG, CMP, ESR, LIPASE, TSH3 #### [address] ISTAT PO2 77 mm[Hg] Low 80-105 [facility] Comment on above: Performed By: #### C BC, MG, CMP, ESR, LIPASE, TSH3 #### [address] Oxygen saturation in Blood 96 % Normal 95-98 [facility] Comment on above: Result Comment: Refe rence ranges reflect baseline specimens only Performed By: #### C BC, MG, CMP, ESR, LIPASE, TSH3 #### [address] Potassium [Moles/Vol] 4.1 mmol/L Normal 3.5-4.9 [facility] Comment on above: Performed By: #### C BC, MG, CMP, ESR, LIPASE, TSH3 #### [address] Sodium [Moles/Vol] 137 mmol/L Low 138-146 [facility] Comment on above: Performed By: #### C BC, MG, CMP, ESR, LIPASE, TSH3 #### [address] 06-14-2022 L ------ Specimen: [id number] Received: 06/15/22 Status: ARSALAN Brito Num: [id number] Spec Type: Surgical Subm Dr: Be Azul MD Tissues: A Colon Biopsy (RANDOM COLON BX) Procedures: HE/2, Gross/Micro L4 Age/ Patient Sex Location Account Attending Physician Raquel Correa 37/F [id number] Be Azul MD SPEC NUM: [id number] RECD: 06/15/22 STATUS: ARSALAN BRITO NUM: [id number] BILLY: 06/14/[address] [facility] [address]: Be Azul MD ENTERED: 06/15/22 [facility] DR: SPEC TYPE: Surgical DEPT: S ORDERED: HE/2, Gross/Micro L4 ORDERED: HE/2, Gross/Micro L4 Pathological Diagnosis Colon, random, biopsy: - Colonic mucosa, no significant histopathologic changes. Clinical Information Rectal bleeding/anemia, rule out microscopic colitis Gross Description Received in formalin labeled with the patient's name, number and random colon biopsy, rule out microscopic colitis is one fragment of soft baca tissue measuring 0.3 cm. Entirely submitted in one cassette labeled A1. Microscopic Description Two glass slides with H E stained material have been examined. The microscopic findings support the above pathologic diagnosis. CPT Codes 74173 Specimen: [id number] Received: 06/15/22 Status: ARSALAN Derek Num: [id number] Spec Type: Surgical Subm Dr: eB Azul MD Tissues: A Colon Biopsy (RANDOM COLON BX) Procedures: HE/Buzz, Gross/Micro L4 Patient: Raquel Correa [id number] (Continued) Signed (signature on file) Néstor Alvarado MD 06/16/22 0944 Normal [facility] Monocyte %Ordered By: Sandy Azul on 06-14-2022 Monocyte % 36.9 mm[Hg] 35-51 [facility] Monocyte % 77 mm[Hg] 80-105 [facility] Potassium (Bld) [Moles/Vol]O rdered By: Be Azul on 06-14-2022 Potassium [Moles/Vol] 4.1 mmol/L 3.5-4.9 [facility] Sodium (Bld) [Moles/Vol]Orde red By: Be Azul on 06-14-2022 Sodium [Moles/Vol] 137 mmol/L 138-146 [facility] Whole blood bicarbonate mariana urementOrdered By: Be Azul on 06-14-2022 HCO3 (Bld) [Moles/Vol] 24.5 mmol/L 22.0-28.0 [facility] Whole blood ionized calcium measurement (moles/volume)Ordered By: Be Azul on 06-14-2022 Calcium.ionized (Bld) [Moles/Vol] 1210 mmol/L 1.12-1.32 [facility] Whole blood oxygen saturatio n measurementOrdered By: Be Azul on 06-14-2022 Oxygen saturation in Blood 96 % 95-98 [facility] Comment on above: Reference ranges ref lect baseline specimens only Whole blood pHOrdered By: Lay Azul on 06-14-2022 pH (Bld) 7.430 Units 7.31-7.45 [facility] CBC AUTO DIFFon 06-09-2022 BASO # 0.1 103/ul Normal 0.0-0.1 [facility] Comment on above: Performed By: #### C BC #### [facility] [address] [place], [place] [address] Dr. Tori Thomas Basophils/100 WBC (Bld) 0.5 % Normal 0.2-2.0 [facility] Comment on above: Performed By: #### C BC #### [facility] [address] [place] [address] Dr. Tori Thomas EO # 0.1 103/ul Normal 0.0-0.7 [facility] Comment on above: Performed By: #### C BC #### [facility] [address] [place] [address] Dr. Tori Thomas Eosinophils/100 WBC (Bld) 0.9 % Normal 0.9-7.0 [facility] Comment on above: Performed By: #### C BC #### [facility] [address] [place] [address] Dr. Tori Thomas Erythrocyte distribution width (RBC) [Ratio] 16.8 % Critically high 11.0-15.0 [facility] Comment on above: Performed By: #### C BC #### [facility] [address] [place] [address] Dr. Tori Thomas Hematocrit (Bld) [Volume fraction] 34.0 % Critically low 36.0-48.0 [facility] Comment on above: Performed By: #### C BC #### [facility] [address] [place] [address] Dr. Tori Thomas Hemoglobin (Bld) [Mass/Vol] 10.5 g/dL Critically low 12.0-16.0 [facility] Comment on above: Performed By: #### C BC #### [facility] [address] [place] [address] Dr. Tori Thomas IG # 0.10 10e3/ul Critically high 0.00-0.03 [facility] Comment on above: Performed By: #### C BC #### [facility] [address] [place] [address] Dr. Tori Thomas IG % 0.9 % Critically high 0.0-0.5 [facility] Comment on above: Performed By: #### C BC #### [facility] [address] [place] [address] Dr. Tori Thomas LYMPH # 4.4 103/ul Critically high 1.2-3.8 [facility] Comment on above: Performed By: #### C BC #### [facility] [address] [place] [address] Dr. Tori Thomas Lymphocytes/100 WBC (Bld) 39.9 % Normal 20.5-60.0 [facility] Comment on above: Performed By: #### C BC #### [facility] [address] [place] [address] Dr. Tori Thomas MANUAL DIFF REQ NO Normal [facility] Comment on above: Performed By: #### C BC #### [facility] [address] [place] [address] Dr. Tori Thomas MCH (RBC) [Entitic mass] 25.6 pg Critically low 26.7-34.0 [facility] Comment on above: Performed By: #### C BC #### [facility] [address] [place] [address] Dr. Tori Thomas MCHC (RBC) [Mass/Vol] 30.9 g/dL Normal 29.9-35.2 [facility] Comment on above: Performed By: #### C BC #### [facility] [address] [place] [address] Dr. Tori Thomas MCV (RBC) [Entitic vol] 82.9 fL Normal 81.0-99.0 [facility] Comment on above: Performed By: #### C BC #### [facility] [address] [place] [address] Dr. Tori Thomas MONO # 0.6 103/ul Normal 0.3-0.8 [facility] Comment on above: Performed By: #### C BC #### [facility] [address] [place] [address] Dr. Tori Thomas Monocytes/100 WBC (Bld) 5.6 % Normal 1.7-12.0 [facility] Comment on above: Performed By: #### C BC #### [facility] [address] [place] [address] Dr. Tori Thomas NEUT # 5.7 103/ul Normal 1.4-6.5 [facility] Comment on above: Performed By: #### C BC #### [facility] [address] [place] [address] Dr. Tori Thomas Neutrophils/100 WBC (Bld) 52.2 % Normal 43.0-75.0 [facility] Comment on above: Performed By: #### C BC #### [facility] [address] [place] [address] Dr. Tori Thomas Platelet mean volume (Bld) [Entitic vol] 9.0 fL Critically low 9.5-13.5 [facility] Comment on above: Performed By: #### C BC #### [facility] [address] [place] [address] Dr. Tori Thomas PLT 479 103/ul Critically high 150-450 [facility] Comment on above: Performed By: #### C BC #### [facility] [address] [place] [address] Dr. Tori Thomas RBC 4.10 106/ul Critically low 4.20-5.40 [facility] Comment on above: Performed By: #### C BC #### [facility] [address] [place] [address] Dr. Tori Thomas WBC 11.0 103/ul Normal 4.0-11.0 [facility] Comment on above: Performed By: #### C BC #### [facility] [address] [place] [address] Dr. Tori Thomas IRONon 06-09-2022 Iron [Mass/Vol] 131.0 ug/dL Normal 50.0-170.0 [facility] Comment on above: Performed By: #### U AMIC #### [facility] [address] [place] [address] Dr. Tori Thomas Basophils Auto (Bld) [#/Vol] Ordered By: Chandrika Lee on 06-05-2022 Basophils (Bld) [#/Vol] 0.1 10*3/uL 0.0-0.2 [facility] Basophils/100 WBC Auto (Bld) Ordered By: Chandrika Lee on 06-05-2022 Basophils/100 WBC (Bld) 0.6 % . [facility] Complete Blood Count Auto Di ffon 06-05-2022 Basophils (Bld) [#/Vol] 0.1 10*3/uL Normal 0.0-0.2 [facility] Comment on above: Result Comment: PERF ORMED BY: [place] [address] PATHOLOGIST [employer]SEM[employer] RADHA GARCIA M.D. Performed By: #### C BC, MG, CMP, ESR, LIPASE, TSH3 #### [address] Basophils/100 WBC (Bld) 0.6 % Normal . [facility] Comment on above: Performed By: #### C BC, MG, CMP, ESR, LIPASE, TSH3 #### [address] Eosinophils (Bld) [#/Vol] 0.0 10*3/uL Normal 0.0-0.45 [facility] Comment on above: Performed By: #### C BC, MG, CMP, ESR, LIPASE, TSH3 #### [address] Eosinophils/100 WBC (Bld) 0.0 % Normal . [facility] Comment on above: Performed By: #### C BC, MG, CMP, ESR, LIPASE, TSH3 #### [address] Erythrocyte distribution width (RBC) [Ratio] 18.2 % High 11.9-15.3 [facility] Comment on above: Performed By: #### C BC, MG, CMP, ESR, LIPASE, TSH3 #### [address] Hematocrit (Bld) [Volume fraction] 30.1 % Low 34.0-46.4 [facility] Comment on above: Performed By: #### C BC, MG, CMP, ESR, LIPASE, TSH3 #### [address] Hemoglobin (Bld) [Mass/Vol] 9.8 g/dL Low 11.8-15.4 [facility] Comment on above: Performed By: #### C BC, MG, CMP, ESR, LIPASE, TSH3 #### [address] Lymphocytes (Bld) [#/Vol] 1.6 10*3/uL Normal 1.00-4.8 [facility] Comment on above: Performed By: #### C BC, MG, CMP, ESR, LIPASE, TSH3 #### [address] Lymphocytes/100 WBC (Bld) 14.4 % Normal . [facility] Comment on above: Performed By: #### C BC, MG, CMP, ESR, LIPASE, TSH3 #### [address] MCH (RBC) [Entitic mass] 25.8 pg Normal 24.7-34.3 [facility] Comment on above: Performed By: #### C BC, MG, CMP, ESR, LIPASE, TSH3 #### [address] MCV (RBC) [Entitic vol] 79.0 fL Low 80-100 [facility] Comment on above: Performed By: #### C BC, MG, CMP, ESR, LIPASE, TSH3 #### [address] Mean Corpuscular HGB Conc 32.6 g/dL Normal 32.0-35.0 [facility] Comment on above: Performed By: #### C BC, MG, CMP, ESR, LIPASE, TSH3 #### [address] Monocytes (Bld) [#/Vol] 0.6 10*3/uL Normal 0.0-0.8 [facility] Comment on above: Performed By: #### C BC, MG, CMP, ESR, LIPASE, TSH3 #### [address] Monocytes/100 WBC (Bld) 5.4 % Normal . [facility] Comment on above: Performed By: #### C BC, MG, CMP, ESR, LIPASE, TSH3 #### [address] Neutrophils (Bld) [#/Vol] 8.9 10*3/uL High 1.8-7.7 [facility] Comment on above: Performed By: #### C BC, MG, CMP, ESR, LIPASE, TSH3 #### [address] Neutrophils/100 WBC (Bld) 79.6 % Normal . [facility] Comment on above: Performed By: #### C BC, MG, CMP, ESR, LIPASE, TSH3 #### [address] NRBC% 0.0 /100{WBC} Normal 0-0.5 [facility] Comment on above: Performed By: #### C BC, MG, CMP, ESR, LIPASE, TSH3 #### [address] Platelet mean volume (Bld) [Entitic vol] 8.0 fL Normal 6.3-10.7 [facility] Comment on above: Performed By: #### C BC, MG, CMP, ESR, LIPASE, TSH3 #### [address] Platelets (Bld) [#/Vol] 431 10*3/uL Normal 150-450 [facility] Comment on above: Performed By: #### C BC, MG, CMP, ESR, LIPASE, TSH3 #### [address] RBC (Bld) [#/Vol] 3.80 10*6/uL Normal 3.60-5.00 [facility] Comment on above: Performed By: #### C BC, MG, CMP, ESR, LIPASE, TSH3 #### [address] WBC (Bld) [#/Vol] 11.2 10*3/uL Normal 3.8-11.6 [facility] Comment on above: Performed By: #### C BC, MG, CMP, ESR, LIPASE, TSH3 #### [facility] [address] Eosinophils Auto (Bld) [#/Vo l]Ordered By: Chandrika Lee on 06-05-2022 Eosinophils (Bld) [#/Vol] 0.0 10*3/uL 0.0-0.45 [facility] Eosinophils/100 WBC Auto (Bl d)Ordered By: Chandrika Lee on 06-05-2022 Eosinophils/100 WBC (Bld) 0.0 % . [facility] Erythrocyte distribution wid th Auto (RBC) [Ratio]Ordered By: Chandrika Lee on 06-05-2022 Erythrocyte distribution width (RBC) [Ratio] 18.2 % 11.9-15.3 [facility] Hematocrit Auto (Bld) [Volum e fraction]Ordered By: Chandrika Lee on 06-05-2022 Hematocrit (Bld) [Volume fraction] 30.1 % 34.0-46.4 [facility] Hemoglobin [Mass/volume] in BloodOrdered By: Chandrika Lee on 06-05-2022 Hemoglobin (Bld) [Mass/Vol] 9.8 g/dL 11.8-15.4 [facility] Leukocytes [#/volume] correc rosales for nucleated erythrocytes in Blood by Automated counOrdered By: Chandrika Lee on 06-05-2022 WBC corrected for nucl RBC Auto (Bld) [#/Vol] 11.2 10*3/uL 3.8-11.6 [facility] Lymphocytes Auto (Bld) [#/Vo l]Ordered By: Chandrika Lee on 06-05-2022 Lymphocytes (Bld) [#/Vol] 1.6 10*3/uL 1.00-4.8 [facility] Lymphocytes/100 WBC Auto (Bl d)Ordered By: Chandrika Lee on 06-05-2022 Lymphocytes/100 WBC (Bld) 14.4 % . [facility] MCH Auto (RBC) [Entitic mass ]Ordered By: Chandrika Lee on 06-05-2022 MCH (RBC) [Entitic mass] 25.8 pg 24.7-34.3 [facility] MCHC Auto (RBC) [Mass/Vol]Or dered By: Chandrika Lee on 06-05-2022 MCHC (RBC) [Mass/Vol] 32.6 g/dL 32.0-35.0 [facility] MCV Auto (RBC) [Entitic vol] Ordered By: Chandrika Lee on 06-05-2022 MCV (RBC) [Entitic vol] 79.0 fL 80-100 [facility] Monocytes Auto (Bld) [#/Vol] Ordered By: Chandrika Lee on 06-05-2022 Monocytes (Bld) [#/Vol] 0.6 10*3/uL 0.0-0.8 [facility] Monocytes/100 WBC Auto (Bld) Ordered By: Chandrika Lee on 06-05-2022 Monocytes/100 WBC (Bld) 5.4 % . [facility] Neutrophils Auto (Bld) [#/Vo l]Ordered By: Chandrika Lee on 06-05-2022 Neutrophils (Bld) [#/Vol] 8.9 10*3/uL 1.8-7.7 [facility] Neutrophils/100 WBC Auto (Bl d)Ordered By: Chandrika Lee on 06-05-2022 Neutrophils/100 WBC (Bld) 79.6 % . [facility] Nucleated erythrocytes [Pres ence] in Blood by Automated countOrdered By: Chandrika Lee on 06-05-2022 Nucleated RBC Auto Ql (Bld) 0.0 /100{WBC} 0-0.5 [facility] Platelet mean volume Auto (B ld) [Entitic vol]Ordered By: Chandrika Lee on 06-05-2022 Platelet mean volume (Bld) [Entitic vol] 8.0 fL 6.3-10.7 [facility] Platelets Auto (Bld) [#/Vol] Ordered By: Chandrika Lee on 06-05-2022 Platelets (Bld) [#/Vol] 431 10*3/uL 150-450 [facility] RBC Auto (Bld) [#/Vol]Ordere d By: Chandrika Lee on 06-05-2022 RBC (Bld) [#/Vol] 3.80 10*6/uL 3.60-5.00 [facility] WBC Auto (Bld) [#/Vol]Ordere d By: Chandrika Lee on 06-05-2022 WBC (Bld) [#/Vol] 11.2 10*3/uL 3.8-11.6 [facility] CBC AUTO DIFFon 06-04-2022 BASO # 0.0 103/ul Normal 0.0-0.1 [facility] Comment on above: Performed By: #### P T, PTT #### [facility] [address] [place] [address] [address] Tori Thomas Basophils/100 WBC (Bld) 0.6 % Normal 0.2-2.0 [facility] Comment on above: Performed By: #### P T, PTT #### [facility] [address] [place] [address] Dr. Tori Thomas EO # 0.1 103/ul Normal 0.0-0.7 [facility] Comment on above: Performed By: #### P T, PTT #### [facility] [address] [address] [address] Tori Thomas Eosinophils/100 WBC (Bld) 1.0 % Normal 0.9-7.0 [facility] Comment on above: Performed By: #### P T, PTT #### [facility] [address] [place] [address] Dr. Tori Thomas Erythrocyte distribution width (RBC) [Ratio] 16.7 % Critically high 11.0-15.0 [facility] Comment on above: Performed By: #### P T, PTT #### [facility] [address] [place] [address] Dr. Tori Thomas Hematocrit (Bld) [Volume fraction] 23.4 % Critically low 36.0-48.0 [facility] Comment on above: Performed By: #### P T, PTT #### [facility] [address] [place] [address] Dr. Tori Thomas Hemoglobin (Bld) [Mass/Vol] 7.2 g/dL Critically low 12.0-16.0 [facility] Comment on above: Performed By: #### P T, PTT #### [facility] [address] [place] [address] Dr. Tori Thomas IG # 0.06 10e3/ul Critically high 0.00-0.03 [facility] Comment on above: Performed By: #### P T, PTT #### [facility] [address] [place] [address] Dr. Tori Thomas IG % 0.9 % Critically high 0.0-0.5 [facility] Comment on above: Performed By: #### P T, PTT #### [facility] [address] [place] [address] Dr. Tori Thomas LYMPH # 2.0 103/ul Normal 1.2-3.8 [facility] Comment on above: Performed By: #### P T, PTT #### [facility] [address] [place] [address] Dr. Tori Thomas Lymphocytes/100 WBC (Bld) 28.6 % Normal 20.5-60.0 [facility] Comment on above: Performed By: #### P T, PTT #### [facility] [address] [place] [address] Dr. Tori Thomas MANUAL DIFF REQ NO Normal [facility] Comment on above: Performed By: #### P T, PTT #### [facility] [address] [place] [address] Dr. Tori Thomas MCH (RBC) [Entitic mass] 25.2 pg Critically low 26.7-34.0 [facility] Comment on above: Performed By: #### P T, PTT #### [facility] [address] [place] [address] Dr. Tori Thomas MCHC (RBC) [Mass/Vol] 30.8 g/dL Normal 29.9-35.2 [facility] Comment on above: Performed By: #### P T, PTT #### [facility] [address] [place] [address] Dr. Tori Thomas MCV (RBC) [Entitic vol] 81.8 fL Normal 81.0-99.0 [facility] Comment on above: Performed By: #### P T, PTT #### [facility] [address] [address] [address] Tori Thomas MONO # 0.4 103/ul Normal 0.3-0.8 [facility] Comment on above: Performed By: #### P T, PTT #### [facility] [address] [place] [address] Dr. Tori Thomas Monocytes/100 WBC (Bld) 5.1 % Normal 1.7-12.0 [facility] Comment on above: Performed By: #### P T, PTT #### [facility] [address] [place] [address] Dr. Tori Thomas NEUT # 4.4 103/ul Normal 1.4-6.5 [facility] Comment on above: Performed By: #### P T, PTT #### [facility] [address] [place] [address] Dr. Tori Thomas Neutrophils/100 WBC (Bld) 63.8 % Normal 43.0-75.0 [facility] Comment on above: Performed By: #### P T, PTT #### [facility] [address] [place] [address] Dr. Tori Thomas Platelet mean volume (Bld) [Entitic vol] 9.3 fL Critically low 9.5-13.5 [facility] Comment on above: Performed By: #### P T, PTT #### [facility] [address] [place] [address] Dr. Tori Thomas PLT 390 103/ul Normal 150-450 [facility] Comment on above: Performed By: #### P T, PTT #### [facility] [address] [place] [address] Dr. Tori Thomas RBC 2.86 106/ul Critically low 4.20-5.40 [facility] Comment on above: Performed By: #### P T, PTT #### [facility] [address] [place] [address] Dr. Tori Thomas WBC 6.9 103/ul Normal 4.0-11.0 [facility] Comment on above: Performed By: #### P T, PTT #### [facility] [address] [address] [address] Tori Thomas FERRITINon 06-04-2022 Ferritin [Mass/Vol] 10.0 ng/mL Normal 6.2-137.0 [facility] Comment on above: Performed By: #### P T, PTT #### [facility] [address] [address] [address] Tori Thomas IRONon 06-04-2022 Iron [Mass/Vol] 124.0 ug/dL Normal 50.0-170.0 [facility] Comment on above: Performed By: #### P T, PTT #### [facility] [address] [address] [address] Tori Thomas LeukoReduced RBCon LeukoReduced RBC TRANSFUSED 06/05/22 0035 [facility] Type and Screenon 06-04-2022 ABO and Rh group Nom (Bld) Blood group O Rh(D) positive [facility] VITAMIN B12on 06-04-2022 Cobalamin (Vitamin B12) [Mass/Vol] 608.0 pg/mL Normal 193.0-986. 0 [facility] Comment on above: Performed By: #### P T, PTT #### [facility] [address] [address] [address] Tori Thomas Urine culture routineOrdered By: Noman Armando on 06-01-2022 Bacteria identified Cx Nom (U) Escherichia coli (ESBL) [facility] Albumin [Mass/volume] in Ser um or PlasmaOrdered By: Noman Armando on 05-30-2022 Albumin [Mass/Vol] 3.8 g/dL 3.2-5.5 [facility] Automated erythrocytes count in urine sediment (number/area)Ordered By: Noman Armando on 05-30-2022 RBC Auto (Urine sed) [#/Area] 3-4 [HPF] 0-4 [facility] Automated leukocytes count i n urine sediment (number/area)Ordered By: Noman Armando on 05-30-2022 WBC Auto (Urine sed) [#/Area] 50-100 [HPF] 0-4 [facility] Basophils Auto (Bld) [#/Vol] Ordered By: Noman Armando on 05-30-2022 Basophils (Bld) [#/Vol] 0.0 10*3/uL 0.0-0.2 [facility] Basophils/100 WBC Auto (Bld) Ordered By: Noman Armando on 05-30-2022 Basophils/100 WBC (Bld) 0.2 % . [facility] Bilirubin Test strip Ql (U)O rdered By: Noman Armando on 05-30-2022 Bilirubin Ql (U) Negative Negative [facility] CT abdomen pelvis wo conon 1 07-31-2021 CT abdomen pelvis wo con [facility] [place] [address] [place] [address] CT Scan Report Signed Patient: Raquel oCrrea MR#: [id number] : 1985 Acct:[id number] Age/Sex: 37 / F ADM Date: 05/30/22 Loc: ER Room: Type: [facility] ER Attending Dr: Copies to: Noman Armando MD Ordering Provider: Noman Armando MD Date of Service: 05/30/22 CT/CT abdomen pelvis wo con: Flank pain CT abdomen and pelvis withoutcontrast TECHNIQUE: Axial imaging with 2-D reconstruction. . The CT exam was performed using one or more the following dose reduction techniques: Automated exposure control, adjustment of the MA and/or Kv according to patient size, or use of the iterative reconstruction technique. COMPARISON:03/27/22 History: Fever. Dizziness. Flank pain. History of stones. Chronic RIGHT posterior costophrenic angle changes. No pleural effusion. No hepatic mass or intrahepatic biliary ductal dilatation identified. Normal density of the liver parenchyma identified. Cholecystectomy clips identified. No extrahepatic biliary ductal dilatation identified. There is no splenomegaly or splenic mass identified. No pancreatic mass or ductal dilatation identified. The adrenal glands are unremarkable. No nephrolithiasis or obstructive uropathy is identified. Similar renal cyst. Dystrophic calcifications in the RIGHT kidney redemonstrated. No abdominal aortic aneurysm identified. No significant retroperitoneal abnormalities identified. The small bowel loops are nondistended. Postsurgical changes of bowel. The appendix is normal. There is no colonic wall thickening, distention or pericolonic inflammatory changes. Urinary bladder is unremarkable. Small amount of fluid adjacent to the RIGHT ovary. Small RIGHT ovarian cyst. May consider ruptured. IUD redemonstrated. No free intraperitoneal air or fluid is identified. The bony structures are unremarkable. SI joint degeneration redemonstrated. No subcutaneous soft tissue abnormality identified. CT/CT abdomen pelvis wo con IMPRESSION: Potential rupture of the RIGHT ovarian cyst with small adjacent low-density fluid. No hemorrhage. No obstructive uropathy or nephrolithiasis. Impression dictated by: Gregory Hart M.D.05/30/2022 2:08 PM Dictation Location: [address] [address] Transcribed By: [facility] 05/30/22 1408 Dictated By: Gregory Hart DO 05/30/22 1359 Signed By: 05/30/22 1408 Normal [facility] Color Auto (U)Ordered By: Christianne Armando on 05-30-2022 Color (U) Yellow Yellow [facility] Complete Blood Count Auto Di ffon 05-30-2022 Basophils (Bld) [#/Vol] 0.0 10*3/uL Normal 0.0-0.2 [facility] Comment on above: Result Comment: PERF ORMED BY: [place] [address] PATHOLOGIST BALL ASSEMBLER RADHA GARCIA M.D. Performed By: #### C BC, MG, CMP, ESR, LIPASE, TSH3 #### [facility] [address] [place] [address] Basophils/100 WBC (Bld) 0.2 % Normal . [facility] Comment on above: Performed By: #### C BC, MG, CMP, ESR, LIPASE, TSH3 #### [facility] [address] Eosinophils (Bld) [#/Vol] 0.0 10*3/uL Normal 0.0-0.45 [facility] Comment on above: Performed By: #### C BC, MG, CMP, ESR, LIPASE, TSH3 #### [address] Eosinophils/100 WBC (Bld) 0.4 % Normal . [facility] Comment on above: Performed By: #### C BC, MG, CMP, ESR, LIPASE, TSH3 #### [address] Erythrocyte distribution width (RBC) [Ratio] 19.4 % High 11.9-15.3 [facility] Comment on above: Performed By: #### C BC, MG, CMP, ESR, LIPASE, TSH3 #### [address] Hematocrit (Bld) [Volume fraction] 35.6 % Normal 34.0-46.4 [facility] Comment on above: Performed By: #### C BC, MG, CMP, ESR, LIPASE, TSH3 #### [address] Hemoglobin (Bld) [Mass/Vol] 11.3 g/dL Low 11.8-15.4 [facility] Comment on above: Performed By: #### C BC, MG, CMP, ESR, LIPASE, TSH3 #### [address] Lymphocytes (Bld) [#/Vol] 0.9 10*3/uL Low 1.00-4.8 [facility] Comment on above: Performed By: #### C BC, MG, CMP, ESR, LIPASE, TSH3 #### [address] Lymphocytes/100 WBC (Bld) 15.1 % Normal . [facility] Comment on above: Performed By: #### C BC, MG, CMP, ESR, LIPASE, TSH3 #### [address] MCH (RBC) [Entitic mass] 25.0 pg Normal 24.7-34.3 [facility] Comment on above: Performed By: #### C BC, MG, CMP, ESR, LIPASE, TSH3 #### [address] MCV (RBC) [Entitic vol] 79.2 fL Low 80-100 [facility] Comment on above: Performed By: #### C BC, MG, CMP, ESR, LIPASE, TSH3 #### [facility] [address] Mean Corpuscular HGB Conc 31.6 g/dL Low 32.0-35.0 [facility] Comment on above: Performed By: #### C BC, MG, CMP, ESR, LIPASE, TSH3 #### [address] Monocytes (Bld) [#/Vol] 0.4 10*3/uL Normal 0.0-0.8 [facility] Comment on above: Performed By: #### C BC, MG, CMP, ESR, LIPASE, TSH3 #### [address] Monocytes/100 WBC (Bld) 23.71 % High 0.00-20.00 [facility] Comment on above: Result Comment: For adults in ED, MDW > 20.0 may be associated with a higher risk of sepsis during the first 12 hrs of hospital admission Performed By: #### C BC, MG, CMP, ESR, LIPASE, TSH3 #### [address] Monocytes/100 WBC (Bld) 7.2 % Normal . [facility] Comment on above: Performed By: #### C BC, MG, CMP, ESR, LIPASE, TSH3 #### [address] Neutrophils (Bld) [#/Vol] 4.8 10*3/uL Normal 1.8-7.7 [facility] Comment on above: Performed By: #### C BC, MG, CMP, ESR, LIPASE, TSH3 #### [place] [address] [place] Neutrophils/100 WBC (Bld) 77.1 % Normal . [facility] Comment on above: Performed By: #### C BC, MG, CMP, ESR, LIPASE, TSH3 #### [place] [address] [place] NRBC% 0.1 /100{WBC} Normal 0-0.5 [facility] Comment on above: Performed By: #### C BC, MG, CMP, ESR, LIPASE, TSH3 #### [address] Platelet mean volume (Bld) [Entitic vol] 8.5 fL Normal 6.3-10.7 [facility] Comment on above: Performed By: #### C BC, MG, CMP, ESR, LIPASE, TSH3 #### [address] Platelets (Bld) [#/Vol] 372 10*3/uL Normal 150-450 [facility] Comment on above: Performed By: #### C BC, MG, CMP, ESR, LIPASE, TSH3 #### [address] RBC (Bld) [#/Vol] 4.50 10*6/uL Normal 3.60-5.00 [facility] Comment on above: Performed By: #### C BC, MG, CMP, ESR, LIPASE, TSH3 #### [address] WBC (Bld) [#/Vol] 6.2 10*3/uL Normal 3.8-11.6 [facility] Comment on above: Performed By: #### C BC, MG, CMP, ESR, LIPASE, TSH3 #### [address] Comprehensive Metabolic Pane eagle 05-30-2022 Albumin [Mass/Vol] 3.8 g/dL Normal 3.2-5.5 [facility] Comment on above: Performed By: #### C BC, MG, CMP, ESR, LIPASE, TSH3 #### [address] Albumin/Globulin [Mass ratio] 1.0 {ratio} Normal [facility] Comment on above: Performed By: #### C BC, MG, CMP, ESR, LIPASE, TSH3 #### [address] ALP [Catalytic activity/Vol] 71 U/L Normal 32-92 [facility] Comment on above: Performed By: #### C BC, MG, CMP, ESR, LIPASE, TSH3 #### [facility] [address] ALT [Catalytic activity/Vol] 21 U/L Normal 10-60 [facility] Comment on above: Performed By: #### C BC, MG, CMP, ESR, LIPASE, TSH3 #### [facility] [address] Anion gap [Moles/Vol] 11.8 mmol/L Normal 6.0-15.0 [facility] Comment on above: Performed By: #### C BC, MG, CMP, ESR, LIPASE, TSH3 #### [address] AST [Catalytic activity/Vol] 16 U/L Normal 10-42 [facility] Comment on above: Performed By: #### C BC, MG, CMP, ESR, LIPASE, TSH3 #### [address] Bilirubin [Mass/Vol] 0.7 mg/dL Normal 0.3-1.2 [facility] Comment on above: Performed By: #### C BC, MG, CMP, ESR, LIPASE, TSH3 #### [address] Calcium [Mass/Vol] 9.4 mg/dL Normal 8.2-10.2 [facility] Comment on above: Performed By: #### C BC, MG, CMP, ESR, LIPASE, TSH3 #### [address] Chloride [Moles/Vol] 101 mmol/L Normal 95-114 [facility] Comment on above: Performed By: #### C BC, MG, CMP, ESR, LIPASE, TSH3 #### [address] CO2 [Moles/Vol] 24.1 mmol/L Normal 22.0-30.0 [facility] Comment on above: Performed By: #### C BC, MG, CMP, ESR, LIPASE, TSH3 #### [address] Creatinine [Mass/Vol] 0.71 mg/dL Normal 0.44-1.03 [facility] Comment on above: Performed By: #### C BC, MG, CMP, ESR, LIPASE, TSH3 #### [address] Creatinine Clr Calc Pharmacy 91.48 [facility] Comment on above: Result Comment: PERF ORMED BY: [place] [address] PATHOLOGIST BALL ASSEMBLER RADHA GARCIA M.D. Performed By: #### C BC, MG, CMP, ESR, LIPASE, TSH3 #### [address] Estimated GFR ( Letty > 60 [facility] Comment on above: Result Comment: GFR estimated reference range: According to KDOQI guidelines, <60 ml/min/1.73m2 is sufficient to diagnose a patient with chronic kidney disease. Performed By: #### C BC, MG, CMP, ESR, LIPASE, TSH3 #### [address] Estimated GFR (Non- Am > 60 [facility] Comment on above: Performed By: #### C BC, MG, CMP, ESR, LIPASE, TSH3 #### [address] Globulin (S) [Mass/Vol] 3.7 g/dL [facility] Comment on above: Performed By: #### C BC, MG, CMP, ESR, LIPASE, TSH3 #### [address] Glucose [Mass/Vol] 102 mg/dL High 70-100 [facility] Comment on above: Result Comment: [place] om Glucose Reference Range is dependent on time and content of last meal. Glucose of more than 200 mg/dL in a nonstressed, ambulatory subject supports the diagnosis of Diabetes Mellitus. ADA recommended reference range Performed By: #### C BC, MG, CMP, ESR, LIPASE, TSH3 #### [facility] [address] Potassium [Moles/Vol] 2.9 mmol/L Off scale low 3.5-5.1 [facility] Comment on above: Result Comment: Resu lts called at 1257 on 05/30/22 Performed By: #### C BC, MG, CMP, ESR, LIPASE, TSH3 #### [facility] [address] Protein [Mass/Vol] 7.5 g/dL Normal 6.1-7.9 [facility] Comment on above: Performed By: #### C BC, MG, CMP, ESR, LIPASE, TSH3 #### [facility] [address] Sodium [Moles/Vol] 134 mmol/L Low 136-146 [facility] Comment on above: Performed By: #### C BC, MG, CMP, ESR, LIPASE, TSH3 #### [facility] [address] [place] [address] [place] Urea nitrogen [Mass/Vol] 7 mg/dL Low 9-23 [facility] Comment on above: Performed By: #### C BC, MG, CMP, ESR, LIPASE, TSH3 #### [facility] [address] Creatinine and Glomerular fi ltration rate.predicted panel (S/P/Bld)Ordered By: Noman Armando on 05-30-2022 Creatinine [Mass/Vol] 0.71 mg/dL 0.44-1.03 [facility] Dipstick and Microscopicon 1 07-31-2021 Appearance (U) Cloudy Critically abnormal Clear [facility] Comment on above: Order Comment: Name Collection Type:: Clean-Voided Midstream Performed By: #### L IPASE, PT, CBC, PTT, CMP #### [facility] [address] [place] [address] [place] Bacteria,Urine 4+ High None Seen [facility] Comment on above: Order Comment: Name Collection Type:: Clean-Voided Midstream Performed By: #### L IPASE, PT, CBC, PTT, CMP #### [facility] [address] [place] [address] [place] Bilirubin,Urine Negative Normal Negative [facility] Comment on above: Order Comment: Name Collection Type:: Clean-Voided Midstream Performed By: #### L IPASE, PT, CBC, PTT, CMP #### [facility] [address] [place] [address] [place] Color (U) Yellow Normal Yellow [facility] Comment on above: Order Comment: Name Collection Type:: Clean-Voided Midstream Performed By: #### L IPASE, PT, CBC, PTT, CMP #### [address] Glucose Ql (U) Normal Normal Normal [facility] Comment on above: Order Comment: Name Collection Type:: Clean-Voided Midstream Performed By: #### L IPASE, PT, CBC, PTT, CMP #### [facility] [address] [place] [address] [place] Hyaline Casts,Urine 9-19 High 0-8 [facility] Comment on above: Order Comment: Name Collection Type:: Clean-Voided Midstream Performed By: #### L IPASE, PT, CBC, PTT, CMP #### [facility] [address] [place] [address] [place] Ketones Ql (U) Trace High Negative [facility] Comment on above: Order Comment: Name Collection Type:: Clean-Voided Midstream Performed By: #### L IPASE, PT, CBC, PTT, CMP #### [facility] [address] [place] [address] [place] Leukocyte esterase Test strip Ql (U) 3+ High Negative [facility] Comment on above: Order Comment: Name Collection Type:: Clean-Voided Midstream Performed By: #### L IPASE, PT, CBC, PTT, CMP #### [facility] [address] [place] [address] [place] Nitrite,Urine Positive High Negative [facility] Comment on above: Order Comment: Name Collection Type:: Clean-Voided Midstream Performed By: #### L IPASE, PT, CBC, PTT, CMP #### [address] Occult Blood,Urine Negative Normal Negative [facility] Comment on above: Order Comment: Name Collection Type:: Clean-Voided Midstream Performed By: #### L IPASE, PT, CBC, PTT, CMP #### [address] pH (U) 6.0 [pH] Normal 5.0-9.0 [facility] Comment on above: Order Comment: Name Collection Type:: Clean-Voided Midstream Performed By: #### L IPASE, PT, CBC, PTT, CMP #### [address] Protein,Urine Trace High Negative [facility] Comment on above: Order Comment: Name Collection Type:: Clean-Voided Midstream Performed By: #### L IPASE, PT, CBC, PTT, CMP #### [address] RBC,Urine 3-4 Normal 0-4 [facility] Comment on above: Order Comment: Name Collection Type:: Clean-Voided Midstream Performed By: #### L IPASE, PT, CBC, PTT, CMP #### [address] Specificy [place],Urine 1.013 Normal 1.001-1.03 0 [facility] Comment on above: Order Comment: Name Collection Type:: Clean-Voided Midstream Performed By: #### L IPASE, PT, CBC, PTT, CMP #### [address] Squamous Epithelial Cell,Urine 0-1 Normal 0-2 [facility] Comment on above: Order Comment: Name Collection Type:: Clean-Voided Midstream Performed By: #### L IPASE, PT, CBC, PTT, CMP #### [address] Urobilinogen,Urine Normal Normal Normal [facility] Comment on above: Order Comment: Name Collection Type:: Clean-Voided Midstream Performed By: #### L IPASE, PT, CBC, PTT, CMP #### [facility] [address] WBC,Urine 50-100 High 0-4 [facility] Comment on above: Order Comment: Name Collection Type:: Clean-Voided Midstream Performed By: #### L IPASE, PT, CBC, PTT, CMP #### [facility] [address] Eosinophils Auto (Bld) [#/Vo l]Ordered By: Noman Armando on 05-30-2022 Eosinophils (Bld) [#/Vol] 0.0 10*3/uL 0.0-0.45 [facility] Eosinophils/100 WBC Auto (Bl d)Ordered By: Noman Armando on 05-30-2022 Eosinophils/100 WBC (Bld) 0.4 % . [facility] Erythrocyte distribution wid th Auto (RBC) [Ratio]Ordered By: Noman Armando on 05-30-2022 Erythrocyte distribution width (RBC) [Ratio] 19.4 % 11.9-15.3 [facility] Estimated glomerular filtrat ion rate (GFR) non- AmericanOrdered By: Noman Armando on 05-30-2022 GFR/1.73 sq M.predicted among non-blacks MDRD (S/P/Bld) [Vol rate/Area] > 60 mL/Min [facility] Globulin Calc (S) [Mass/Vol] Ordered By: Noman Armando on 05-30-2022 Globulin (S) [Mass/Vol] 3.7 g/dL [facility] HCG ( test) IA.rapi d Ql (U)Ordered By: Noman Armando on 05-30-2022 HCG ( test) Ql (U) Negative [facility] HCG,Urineon 05-30-2022 Beta HCG ( test) Ql (U) Negative Normal [facility] Comment on above: Order Comment: Name Collection Type:: Clean-Voided Midstream Result Comment: PERF ORMED BY: [place] [address] PATHOLOGIST BALL ASSEMBLER RADHA GARCIA M.D. Performed By: #### L IPASE, PT, CBC, PTT, CMP #### [facility] [address] [place] [address] Hematocrit Auto (Bld) [Volum e fraction]Ordered By: Noman Armando on 05-30-2022 Hematocrit (Bld) [Volume fraction] 35.6 % 34.0-46.4 [facility] Hemoglobin [Mass/volume] in BloodOrdered By: Noman Armando on 05-30-2022 Hemoglobin (Bld) [Mass/Vol] 11.3 g/dL 11.8-15.4 [facility] Ketones Auto test strip (U) [Mass/Vol]Ordered By: Noman Armando on 05-30-2022 Ketones (U) [Mass/Vol] Trace Negative [facility] Laboratory - UrinalysisOrder ed By: Noman Armando on 05-30-2022 Hyaline casts LM Ql (Urine sed) 9-19 [LPF] 0-8 [facility] Lactic Acidon 05-30-2022 Lactate [Moles/Vol] 1.1 mmol/L Normal 0.5-2.2 [facility] Comment on above: Result Comment: PERF ORMED BY: [place] [address] PATHOLOGIST BALL ASSEMBLER RADHA GARCIA M.D. Performed By: #### C BC, MG, CMP, ESR, LIPASE, TSH3 #### [facility] [address] [place] [address] Leukocytes [#/volume] correc rosales for nucleated erythrocytes in Blood by Automated counOrdered By: Noman Armando on 05-30-2022 WBC corrected for nucl RBC Auto (Bld) [#/Vol] 6.2 10*3/uL 3.8-11.6 [facility] Lymphocytes Auto (Bld) [#/Vo l]Ordered By: Noman Armando on 05-30-2022 Lymphocytes (Bld) [#/Vol] 0.9 10*3/uL 1.00-4.8 [facility] Lymphocytes/100 WBC Auto (Bl d)Ordered By: Noman Armando on 05-30-2022 Lymphocytes/100 WBC (Bld) 15.1 % . [facility] MCH Auto (RBC) [Entitic mass ]Ordered By: Noman Armando on 05-30-2022 MCH (RBC) [Entitic mass] 25.0 pg 24.7-34.3 [facility] MCHC Auto (RBC) [Mass/Vol]Or dered By: Noman Armando on 05-30-2022 MCHC (RBC) [Mass/Vol] 31.6 g/dL 32.0-35.0 [facility] MCV Auto (RBC) [Entitic vol] Ordered By: Noman Armando on 05-30-2022 MCV (RBC) [Entitic vol] 79.2 fL 80-100 [facility] Monocyte distribution width [Entitic volume] in Blood by AutomatedOrdered By: Noman Armando on 05-30-2022 Monocyte distribution width Auto (Bld) [Entitic vol] 23.71 % 0.00-20.00 [facility] Comment on above: For adults in ED, MD W > 20.0 may be associated with a higher risk of sepsis during the first 12 hrs of hospital admission Monocytes Auto (Bld) [#/Vol] Ordered By: Noman Armando on 05-30-2022 Monocytes (Bld) [#/Vol] 0.4 10*3/uL 0.0-0.8 [facility] Monocytes/100 WBC Auto (Bld) Ordered By: Noman Armando on 05-30-2022 Monocytes/100 WBC (Bld) 7.2 % . [facility] Neutrophils Auto (Bld) [#/Vo l]Ordered By: Noman Armando on 05-30-2022 Neutrophils (Bld) [#/Vol] 4.8 10*3/uL 1.8-7.7 [facility] Neutrophils/100 WBC Auto (Bl d)Ordered By: Noman Armando on 05-30-2022 Neutrophils/100 WBC (Bld) 77.1 % . [facility] Nitrite Test strip Ql (U)Ord ered By: Noman Armando on 05-30-2022 Nitrite Ql (U) Positive Negative [facility] No Panel InformationOrdered By: Noman Armando on 05-30-2022 Estimated GFR () > 60 mL/Min [facility] Comment on above: GFR estimated refere nce range: According to KDOQI guidelines, <60 ml/min/1.73m2 is sufficient to diagnose a patient with chronic kidney disease. Pharmacy Creatinine Clearance (Chem 91.48 [facility] Nucleated erythrocytes [Pres ence] in Blood by Automated countOrdered By: Noman Armando on 05-30-2022 Nucleated RBC Auto Ql (Bld) 0.1 /100{WBC} 0-0.5 [facility] Platelet mean volume Auto (B ld) [Entitic vol]Ordered By: Noman Armando on 05-30-2022 Platelet mean volume (Bld) [Entitic vol] 8.5 fL 6.3-10.7 [facility] Platelets Auto (Bld) [#/Vol] Ordered By: Noman Armando on 05-30-2022 Platelets (Bld) [#/Vol] 372 10*3/uL 150-450 [facility] Protein Auto test strip (U) [Mass/Vol]Ordered By: Noman Armando on 05-30-2022 Protein (U) [Mass/Vol] Trace mg/dL Negative [facility] Protein [Mass/volume] in Ser um or PlasmaOrdered By: Noman Armando on 05-30-2022 Protein [Mass/Vol] 7.5 g/dL 6.1-7.9 [facility] RBC Auto (Bld) [#/Vol]Ordere d By: Noman Armando on 05-30-2022 RBC (Bld) [#/Vol] 4.50 10*6/uL 3.60-5.00 [facility] Serum or plasma alanine carlos otransferase measurement without P-5'-P (enzymatic activiOrdered By: Noman Armando on 05-30-2022 ALT No additional P-5'-P [Catalytic activity/Vol] 21 U/L 10-60 [facility] Serum or plasma albumin/glob ulin mass ratioOrdered By: Noman Armando on 05-30-2022 Albumin/Globulin [Mass ratio] 1.0 {ratio} [facility] Serum or plasma alkaline belkys sphatase measurement (enzymatic activity/volume)Ordered By: Noman Armando on 05-30-2022 ALP [Catalytic activity/Vol] 71 U/L 32-92 [facility] Serum or plasma anion gap de terminationOrdered By: Noman Armando on 05-30-2022 Anion gap [Moles/Vol] 11.8 mmol/L 6.0-15.0 [facility] Serum or plasma aspartate am inotransferase measurement (enzymatic activity/volume)Ordered By: Noman Armando on 05-30-2022 AST [Catalytic activity/Vol] 16 U/L 10-42 [facility] Serum or plasma calcium mariana urement (mass/volume)Ordered By: Noman Armando on 05-30-2022 Calcium [Mass/Vol] 9.4 mg/dL 8.2-10.2 [facility] Serum or plasma chloride jaqui surement (moles/volume)Ordered By: Noman Armando on 05-30-2022 Chloride [Moles/Vol] 101 mmol/L 95-114 [facility] Serum or plasma glucose mariana urement (mass/volume)Ordered By: Noman Armando on 05-30-2022 Glucose [Mass/Vol] 102 mg/dL 70-100 [facility] Comment on above: ADA recommended refe rence rangeRandom Glucose Reference Range is dependent on time and content of last meal. Glucose of more than 200 mg/dL in a nonstressed, ambulatory subject supports the diagnosis of Diabetes Mellitus. Serum or plasma potassium me asurement (moles/volume)Ordered By: Noman Armando on 05-30-2022 Potassium [Moles/Vol] 2.9 mmol/L 3.5-5.1 [facility] Comment on above: Results calledat 125 7 on 05/30/22 Serum or plasma sodium measu rement (moles/volume)Ordered By: Noman Armando on 05-30-2022 Sodium [Moles/Vol] 134 mmol/L 136-146 [facility] Serum or plasma total biliru bin measurement (mass/volume)Ordered By: Noman Armando on 05-30-2022 Bilirubin [Mass/Vol] 0.7 mg/dL 0.3-1.2 [facility] Serum or plasma total carbon dioxide measurement (moles/volume)Ordered By: Noman Armando on 05-30-2022 CO2 [Moles/Vol] 24.1 mmol/L 22.0-30.0 [facility] Serum or plasma urea nitroge n measurement (mass/volume)Ordered By: Noman Armando on 05-30-2022 Urea nitrogen [Mass/Vol] 7 mg/dL 9 [facility] Specific gravity Auto test s trip (U) [Rel density]Ordered By: Noman Armando on 05-30-2022 Specific gravity (U) [Rel density] 1.013 1.001-1.03 0 [facility] Squamous epithelial cells de tection in urine sediment by light microscopyOrdered By: Noman Armando on 05-30-2022 Epithelial cells.squamous LM Ql (Urine sed) 0-1 [HPF] 0-2 [facility] Urine Cultureon 05-30-2022 Bacteria identified Cx Nom (U) ORGANISM: Escherichia coli (ESBL) (O:ESCCOLESBL) [place] Count >100,000 Aerobic DIVYA Charge (NUC86) SUSCEPTIBILITY ORGANISM: O:ESCCOLESBL ANTIBIOTIC INTERPRETATION DIVYA Amikacin S <16 Ampicillin R* >16 Ampicillin/Sulbactam I 1616/8 Aztreonam ESBL >16 Cefazolin R* >16 Cefepime R* >16 Ceftazidime ESBL >16 Ceftazidime/Avibactam S <8 Ceftriaxone ESBL >32 Ciprofloxacin S <1 Ertapenem S <0.5 Gentamicin S <4 Levofloxacin S <2 Meropenem S <1 Nitrofurantoin S <32 Piperacillin/Tazobactam S <16 Tetracycline S <4 Tigecycline S <2 Tobramycin S <4 Trimethoprim/Sulfamethoxaz ole S <2 S = SUSCEPTIBLE I = INTERMEDIATE R = RESISTANT BLANK = DATA NOT AVAILABLE, OR DRUG NOT ADVISABLE OR TESTED R* = RESISTANCE DUE TO EXTENDED SPECTRUM BETA-LACTAMASES ESBL = EXTENDED SPECTRUM BETA-LACTAMASE TFG = THYMIDINE-DEPENDENT STRAIN EVE = BETA-LACTAMASE POSITIVE IB = INDUCIBLE BETA-LACTAMASE. APPEARS IN PLACE OF 'S' WITH SPECIES KNOWN TO POSSESS INDUCIBLE BETA-LACTAMASES. POTENTIALLY THEY MAY BECOME RESISTANT TO ALL B-LACTAM DRUGS. PERFORMED BY: [address] [place] [address] PATHOLOGIST BALL ASSEMBLER RADHA GARCIA M.D. Normal [facility] Comment on above: Performed By: #### L IPASE, PT, CBC, PTT, CMP #### [facility] [address] Urine bacteria detection by automated methodOrdered By: Noman Armando on 05-30-2022 Bacteria Auto Ql (U) 4+ None Seen [facility] Urine clarity by refractomet ry automatedOrdered By: Noman Armando on 05-30-2022 Clarity Refractometry automated (U) Cloudy Clear [facility] Urine culture routineOrdered By: Noman Armando on 05-30-2022 Bacteria identified Cx Nom (U) Escherichia coli (ESBL) [facility] Urine glucose measurement by automated test strip (mass/volume)Ordered By: Noman Armando on 05-30-2022 Glucose Auto test strip (U) [Mass/Vol] Normal mg/dL Normal [facility] Urine hemoglobin detection b y automated test stripOrdered By: Noman Armando on 05-30-2022 Hemoglobin Auto test strip Ql (U) Negative Negative [facility] Urine lactic acid measuremen tOrdered By: Noman Armando on 05-30-2022 Lactate (U) [Moles/Vol] 1.1 mmol/L 0.5-2.2 [facility] Urine leukocyte esterase det ection by automated test stripOrdered By: Noman Armando on 05-30-2022 Leukocyte esterase Auto test strip Ql (U) 3+ Negative [facility] Urobilinogen Auto test strip (U) [Mass/Vol]Ordered By: Noman Armando on 05-30-2022 Urobilinogen (U) [Mass/Vol] Normal mg/dL Normal [facility] WBC Auto (Bld) [#/Vol]Ordere d By: Noman Armando on 05-30-2022 WBC (Bld) [#/Vol] 6.2 10*3/uL 3.8-11.6 [facility] pH Auto test strip (U)Ordere d By: Noman Armando on 05-30-2022 pH (U) 6.0 [pH] 5.0-9.0 [facility] Basic Metabolic Panelon 11- Anion gap [Moles/Vol] 6.7 mmol/L Normal 6.0-15.0 [facility] Comment on above: Performed By: #### C BC, MG, CMP, ESR, LIPASE, TSH3 #### [address] Calcium [Mass/Vol] 8.7 mg/dL Normal 8.2-10.2 [facility] Comment on above: Performed By: #### C BC, MG, CMP, ESR, LIPASE, TSH3 #### [address] Chloride [Moles/Vol] 105 mmol/L Normal 95-114 [facility] Comment on above: Performed By: #### C BC, MG, CMP, ESR, LIPASE, TSH3 #### [address] CO2 [Moles/Vol] 25.0 mmol/L Normal 22.0-30.0 [facility] Comment on above: Performed By: #### C BC, MG, CMP, ESR, LIPASE, TSH3 #### [address] Creatinine [Mass/Vol] 0.71 mg/dL Normal 0.44-1.03 [facility] Comment on above: Performed By: #### C BC, MG, CMP, ESR, LIPASE, TSH3 #### [address] Creatinine Clr Calc Pharmacy 91.48 [facility] Comment on above: Result Comment: PERF ORMED BY: [place] [address] PATHOLOGIST BALL ASSEMBLER RADHA GARCIA M.D. Performed By: #### C BC, MG, CMP, ESR, LIPASE, TSH3 #### [address] Estimated GFR ( Letty > 60 Normal [facility] Comment on above: Result Comment: GFR estimated reference range: According to KDOQI guidelines, <60 ml/min/1.73m2 is sufficient to diagnose a patient with chronic kidney disease. Performed By: #### C BC, MG, CMP, ESR, LIPASE, TSH3 #### [facility] [address] Estimated GFR (Non- Am > 60 Normal [facility] Comment on above: Performed By: #### C BC, MG, CMP, ESR, LIPASE, TSH3 #### [facility] [address] Glucose [Mass/Vol] 106 mg/dL High 70-100 [facility] Comment on above: Result Comment: [facility] Glucose Reference Range is dependent on time and content of last meal. Glucose of more than 200 mg/dL in a nonstressed, ambulatory subject supports the diagnosis of Diabetes Mellitus. ADA recommended reference range Performed By: #### C BC, MG, CMP, ESR, LIPASE, TSH3 #### [facility] [address] Potassium [Moles/Vol] 3.7 mmol/L Normal 3.5-5.1 [facility] Comment on above: Performed By: #### C BC, MG, CMP, ESR, LIPASE, TSH3 #### [facility] [address] Sodium [Moles/Vol] 133 mmol/L Low 136-146 [facility] Comment on above: Performed By: #### C BC, MG, CMP, ESR, LIPASE, TSH3 #### [facility] [address] Urea nitrogen [Mass/Vol] 4 mg/dL Low 9-23 [facility] Comment on above: Performed By: #### C BC, MG, CMP, ESR, LIPASE, TSH3 #### [facility] [address] [place] [address] [place] Basophils Auto (Bld) [#/Vol] Ordered By: Jessica Akhtar on 05-12-2022 Basophils (Bld) [#/Vol] 0.0 10*3/uL 0.0-0.2 [facility] Basophils/100 WBC Auto (Bld) Ordered By: Jessica Akhtar on 05-12-2022 Basophils/100 WBC (Bld) 0.4 % . [facility] Complete Blood Count Auto Di ffon 05-12-2022 Basophils (Bld) [#/Vol] 0.0 10*3/uL Normal 0.0-0.2 [facility] Comment on above: Result Comment: PERF ORMED BY: [place] [address] PATHOLOGIST BALL ASSEMBLER RADHA GARCIA M.D. Performed By: #### C BC, MG, CMP, ESR, LIPASE, TSH3 #### [address] Basophils/100 WBC (Bld) 0.4 % Normal . [facility] Comment on above: Performed By: #### C BC, MG, CMP, ESR, LIPASE, TSH3 #### [address] Eosinophils (Bld) [#/Vol] 0.0 10*3/uL Normal 0.0-0.45 [facility] Comment on above: Performed By: #### C BC, MG, CMP, ESR, LIPASE, TSH3 #### [address] Eosinophils/100 WBC (Bld) 0.5 % Normal . [facility] Comment on above: Performed By: #### C BC, MG, CMP, ESR, LIPASE, TSH3 #### [address] Erythrocyte distribution width (RBC) [Ratio] 19.3 % High 11.9-15.3 [facility] Comment on above: Performed By: #### C BC, MG, CMP, ESR, LIPASE, TSH3 #### [address] Hematocrit (Bld) [Volume fraction] 29.1 % Low 34.0-46.4 [facility] Comment on above: Performed By: #### C BC, MG, CMP, ESR, LIPASE, TSH3 #### [place] [address] [place] Hemoglobin (Bld) [Mass/Vol] 9.2 g/dL Low 11.8-15.4 [facility] Comment on above: Performed By: #### C BC, MG, CMP, ESR, LIPASE, TSH3 #### [address] Lymphocytes (Bld) [#/Vol] 1.6 10*3/uL Normal 1.00-4.8 [facility] Comment on above: Performed By: #### C BC, MG, CMP, ESR, LIPASE, TSH3 #### [address] Lymphocytes/100 WBC (Bld) 18.1 % Normal . [facility] Comment on above: Performed By: #### C BC, MG, CMP, ESR, LIPASE, TSH3 #### [address] MCH (RBC) [Entitic mass] 25.1 pg Normal 24.7-34.3 [facility] Comment on above: Performed By: #### C BC, MG, CMP, ESR, LIPASE, TSH3 #### [address] MCV (RBC) [Entitic vol] 79.6 fL Low 80-100 [facility] Comment on above: Performed By: #### C BC, MG, CMP, ESR, LIPASE, TSH3 #### [address] Mean Corpuscular HGB Conc 31.6 g/dL Low 32.0-35.0 [facility] Comment on above: Performed By: #### C BC, MG, CMP, ESR, LIPASE, TSH3 #### [address] Monocytes (Bld) [#/Vol] 0.6 10*3/uL Normal 0.0-0.8 [facility] Comment on above: Performed By: #### C BC, MG, CMP, ESR, LIPASE, TSH3 #### [address] Monocytes/100 WBC (Bld) 6.4 % Normal . [facility] Comment on above: Performed By: #### C BC, MG, CMP, ESR, LIPASE, TSH3 #### [address] Neutrophils (Bld) [#/Vol] 6.8 10*3/uL Normal 1.8-7.7 [facility] Comment on above: Performed By: #### C BC, MG, CMP, ESR, LIPASE, TSH3 #### [address] Neutrophils/100 WBC (Bld) 74.6 % Normal . [facility] Comment on above: Performed By: #### C BC, MG, CMP, ESR, LIPASE, TSH3 #### [address] Nucleated RBC/100 WBC (Bld) [Ratio] 0.0 % Normal 0-0.5 [facility] Comment on above: Performed By: #### C BC, MG, CMP, ESR, LIPASE, TSH3 #### [address] Platelet mean volume (Bld) [Entitic vol] 7.9 fL Normal 6.3-10.7 [facility] Comment on above: Performed By: #### C BC, MG, CMP, ESR, LIPASE, TSH3 #### [place] [address] [place] Platelets (Bld) [#/Vol] 385 10*3/uL Normal 150-450 [facility] Comment on above: Performed By: #### C BC, MG, CMP, ESR, LIPASE, TSH3 #### [place] [address] [place] RBC (Bld) [#/Vol] 3.66 10*6/uL Normal 3.60-5.00 [facility] Comment on above: Performed By: #### C BC, MG, CMP, ESR, LIPASE, TSH3 #### [place] [address] [place] WBC (Bld) [#/Vol] 9.1 10*3/uL Normal 4.5-11.0 [facility] Comment on above: Performed By: #### C BC, MG, CMP, ESR, LIPASE, TSH3 #### [facility] [address] Creatinine and Glomerular fi ltration rate.predicted panel (S/P/Bld)Ordered By: Jessica Akhtar on 05-12-2022 Creatinine [Mass/Vol] 0.71 mg/dL 0.44-1.03 [facility] Eosinophils Auto (Bld) [#/Vo l]Ordered By: Jessica Akhtar on 05-12-2022 Eosinophils (Bld) [#/Vol] 0.0 10*3/uL 0.0-0.45 [facility] Eosinophils/100 WBC Auto (Bl d)Ordered By: Jessica Akhtar on 05-12-2022 Eosinophils/100 WBC (Bld) 0.5 % . [facility] Erythrocyte distribution wid th Auto (RBC) [Ratio]Ordered By: Jessica Akhtar on 05-12-2022 Erythrocyte distribution width (RBC) [Ratio] 19.3 % 11.9-15.3 [facility] Estimated glomerular filtrat ion rate (GFR) non- AmericanOrdered By: Jessica Akhtar on 05-12-2022 GFR/1.73 sq M.predicted among non-blacks MDRD (S/P/Bld) [Vol rate/Area] > 60 mL/Min [facility] Hematocrit Auto (Bld) [Volum e fraction]Ordered By: Jessica Akhtar on 05-12-2022 Hematocrit (Bld) [Volume fraction] 29.1 % 34.0-46.4 [facility] Hemoglobin [Mass/volume] in BloodOrdered By: Jessica Akhtar on 05-12-2022 Hemoglobin (Bld) [Mass/Vol] 9.2 g/dL 11.8-15.4 [facility] Laboratory - Hematology and Cell countsOrdered By: Jessica Akhtar on 05-12-2022 Nucleated RBC/100 WBC (Bld) [Ratio] 0.0 % 0-0.5 [facility] Leukocytes [#/volume] in Blo od by Automated countOrdered By: Jessica Akhtar on 05-12-2022 WBC (Bld) [#/Vol] 9.1 10*3/uL 4.5-11.0 [facility] Lymphocytes Auto (Bld) [#/Vo l]Ordered By: Jessica Akhtar on 05-12-2022 Lymphocytes (Bld) [#/Vol] 1.6 10*3/uL 1.00-4.8 [facility] Lymphocytes/100 WBC Auto (Bl d)Ordered By: Jessica Akhtar on 05-12-2022 Lymphocytes/100 WBC (Bld) 18.1 % . [facility] MCH Auto (RBC) [Entitic mass ]Ordered By: Jessica Akhtar on 05-12-2022 MCH (RBC) [Entitic mass] 25.1 pg 24.7-34.3 [facility] MCHC Auto (RBC) [Mass/Vol]Or dered By: Jessica Akhtar on 05-12-2022 MCHC (RBC) [Mass/Vol] 31.6 g/dL 32.0-35.0 [facility] MCV Auto (RBC) [Entitic vol] Ordered By: Jessica Akhtar on 05-12-2022 MCV (RBC) [Entitic vol] 79.6 fL 80-100 [facility] Monocytes Auto (Bld) [#/Vol] Ordered By: Jessica Akhtar on 05-12-2022 Monocytes (Bld) [#/Vol] 0.6 10*3/uL 0.0-0.8 [facility] Monocytes/100 WBC Auto (Bld) Ordered By: Jessica Akhtar on 05-12-2022 Monocytes/100 WBC (Bld) 6.4 % . [facility] Neutrophils Auto (Bld) [#/Vo l]Ordered By: Jessica Akhtar on 05-12-2022 Neutrophils (Bld) [#/Vol] 6.8 10*3/uL 1.8-7.7 [facility] Neutrophils/100 WBC Auto (Bl d)Ordered By: Jessica Akhtar on 05-12-2022 Neutrophils/100 WBC (Bld) 74.6 % . [facility] No Panel InformationOrdered By: Jessica Akhtar on 05-12-2022 Estimated GFR () > 60 mL/Min [facility] Comment on above: GFR estimated refere nce range: According to KDOQI guidelines, <60 ml/min/1.73m2 is sufficient to diagnose a patient with chronic kidney disease. Pharmacy Creatinine Clearance (Chem 91.48 [facility] Platelet mean volume Auto (B ld) [Entitic vol]Ordered By: Jessica Akhtar on 05-12-2022 Platelet mean volume (Bld) [Entitic vol] 7.9 fL 6.3-10.7 [facility] Platelets Auto (Bld) [#/Vol] Ordered By: Jessica Akhtar on 05-12-2022 Platelets (Bld) [#/Vol] 385 10*3/uL 150-450 [facility] RBC Auto (Bld) [#/Vol]Ordere d By: Jessica Akhtar on 05-12-2022 RBC (Bld) [#/Vol] 3.66 10*6/uL 3.60-5.00 [facility] Serum or plasma anion gap de terminationOrdered By: Jessica Akhtar on 05-12-2022 Anion gap [Moles/Vol] 6.7 mmol/L 6.0-15.0 [facility] Serum or plasma calcium mariana urement (mass/volume)Ordered By: Jessica Akhtar on 05-12-2022 Calcium [Mass/Vol] 8.7 mg/dL 8.2-10.2 [facility] Serum or plasma chloride jaqui surement (moles/volume)Ordered By: Jessica Akhtar on 05-12-2022 Chloride [Moles/Vol] 105 mmol/L 95-114 [facility] Serum or plasma glucose mariana urement (mass/volume)Ordered By: Jessica Akhtar on 05-12-2022 Glucose [Mass/Vol] 106 mg/dL 70-100 [facility] Comment on above: ADA recommended refe rence rangeRandom Glucose Reference Range is dependent on time and content of last meal. Glucose of more than 200 mg/dL in a nonstressed, ambulatory subject supports the diagnosis of Diabetes Mellitus. Serum or plasma potassium me asurement (moles/volume)Ordered By: Jessica Akhtar on 05-12-2022 Potassium [Moles/Vol] 3.7 mmol/L 3.5-5.1 [facility] Serum or plasma sodium measu rement (moles/volume)Ordered By: Jessica Akhtar on 05-12-2022 Sodium [Moles/Vol] 133 mmol/L 136-146 [facility] Serum or plasma total carbon dioxide measurement (moles/volume)Ordered By: Jessica Akhtar on 05-12-2022 CO2 [Moles/Vol] 25.0 mmol/L 22.0-30.0 [facility] Serum or plasma urea nitroge n measurement (mass/volume)Ordered By: Jessica Akhtar on 05-12-2022 Urea nitrogen [Mass/Vol] 4 mg/dL 9- [facility] Urine culture routineOrdered By: Truman Hu on 05-12-2022 Bacteria identified Cx Nom (U) Escherichia coli (ESBL) [facility] Complete Blood Count Auto Di ffon 05-11-2022 Basophils (Bld) [#/Vol] 0.0 10*3/uL Normal 0.0-0.2 [facility] Comment on above: Result Comment: PERF ORMED BY: [facility] [address] [place] [address] PATHOLOGIST BALL ASSEMBLER RADHA GARCIA M.D. Performed By: #### C BC, MG, CMP, ESR, LIPASE, TSH3 #### [facility] [address] [place] [address] [place] Basophils/100 WBC (Bld) 0.6 % Normal . [facility] Comment on above: Performed By: #### C BC, MG, CMP, ESR, LIPASE, TSH3 #### [facility] [address] [place] [id number] [place] Eosinophils (Bld) [#/Vol] 0.1 10*3/uL Normal 0.0-0.45 [facility] Comment on above: Performed By: #### C BC, MG, CMP, ESR, LIPASE, TSH3 #### [address] Eosinophils/100 WBC (Bld) 0.9 % Normal . [facility] Comment on above: Performed By: #### C BC, MG, CMP, ESR, LIPASE, TSH3 #### [address] Erythrocyte distribution width (RBC) [Ratio] 19.5 % High 11.9-15.3 [facility] Comment on above: Performed By: #### C BC, MG, CMP, ESR, LIPASE, TSH3 #### [address] Hematocrit (Bld) [Volume fraction] 27.2 % Low 34.0-46.4 [facility] Comment on above: Performed By: #### C BC, MG, CMP, ESR, LIPASE, TSH3 #### [address] Hemoglobin (Bld) [Mass/Vol] 8.8 g/dL Low 11.8-15.4 [facility] Comment on above: Performed By: #### C BC, MG, CMP, ESR, LIPASE, TSH3 #### [address] Lymphocytes (Bld) [#/Vol] 1.7 10*3/uL Normal 1.00-4.8 [facility] Comment on above: Performed By: #### C BC, MG, CMP, ESR, LIPASE, TSH3 #### [address] Lymphocytes/100 WBC (Bld) 21.7 % Normal . [facility] Comment on above: Performed By: #### C BC, MG, CMP, ESR, LIPASE, TSH3 #### [address] MCH (RBC) [Entitic mass] 25.5 pg Normal 24.7-34.3 [facility] Comment on above: Performed By: #### C BC, MG, CMP, ESR, LIPASE, TSH3 #### [address] MCV (RBC) [Entitic vol] 78.9 fL Low 80-100 [facility] Comment on above: Performed By: #### C BC, MG, CMP, ESR, LIPASE, TSH3 #### [address] Mean Corpuscular HGB Conc 32.3 g/dL Normal 32.0-35.0 [facility] Comment on above: Performed By: #### C BC, MG, CMP, ESR, LIPASE, TSH3 #### [address] Monocytes (Bld) [#/Vol] 0.6 10*3/uL Normal 0.0-0.8 [facility] Comment on above: Performed By: #### C BC, MG, CMP, ESR, LIPASE, TSH3 #### [address] Monocytes/100 WBC (Bld) 7.6 % Normal . [facility] Comment on above: Performed By: #### C BC, MG, CMP, ESR, LIPASE, TSH3 #### [address] Neutrophils (Bld) [#/Vol] 5.5 10*3/uL Normal 1.8-7.7 [facility] Comment on above: Performed By: #### C BC, MG, CMP, ESR, LIPASE, TSH3 #### [address] Neutrophils/100 WBC (Bld) 69.2 % Normal . [facility] Comment on above: Performed By: #### C BC, MG, CMP, ESR, LIPASE, TSH3 #### [address] Nucleated RBC/100 WBC (Bld) [Ratio] 0.1 % Normal 0-0.5 [facility] Comment on above: Performed By: #### C BC, MG, CMP, ESR, LIPASE, TSH3 #### [address] Platelet mean volume (Bld) [Entitic vol] 7.8 fL Normal 6.3-10.7 [facility] Comment on above: Performed By: #### C BC, MG, CMP, ESR, LIPASE, TSH3 #### [address] Platelets (Bld) [#/Vol] 350 10*3/uL Normal 150-450 [facility] Comment on above: Performed By: #### C BC, MG, CMP, ESR, LIPASE, TSH3 #### [address] RBC (Bld) [#/Vol] 3.45 10*6/uL Low 3.60-5.00 [facility] Comment on above: Performed By: #### C BC, MG, CMP, ESR, LIPASE, TSH3 #### [address] WBC (Bld) [#/Vol] 8.0 10*3/uL Normal 4.5-11.0 [facility] Comment on above: Performed By: #### C BC, MG, CMP, ESR, LIPASE, TSH3 #### [address] US transvaginalon 05-11-2022 US transvaginal [facility] [place] [address] Ultrasound Report Signed Patient: Raquel Correa MR#: [id number] : 1985 Acct:[id number] Age/Sex: 37 / F ADM Date: 05/09/22 Loc: Room: [address] [place] [address] Type: ADM IN Attending Dr: Jessica Akhtar MD Ordering Provider: Jessica Akhtar MD Date of Service: 05/11/22 US/US transvaginal: cystic adnexal structure on the right measuring 7.[address] ([id number]) US/US pelvic complete: . Copies to: Jessica Akhtar MD TRANSABDOMINAL AND TRANSVAGINAL PELVIC ULTRASOUND HISTORY: 7.3 cm RIGHT adnexal cystic structure identified CT examination. History of rectal bleeding. FINDINGS: The uterus measures8.4 x 4.8 x 5.6 cm. No uterine lesion identified. The endometrium has a total combined thickness of 1mm. IUD visualized. The RIGHT ovary measures 2.1 x 1.8 x 2.2 cm small ovarian follicles identified. There is a structure superior to the RIGHT ovary which is anechoic measuring up to 2.2 cm. Fluid is identified in the RIGHT adnexal region lateral to the ovary. LEFT ovary measures 4.4 x 3.1 x 2.6 cm small ovarian follicles identified. Bilateral ovarian blood flow identified. No free fluid identified. There is no adnexal mass identified. US/US pelvic complete IMPRESSION:Bilateral ovarian follicles. Color flow of both ovaries. 2.2 cm anechoic structure superior to the RIGHT ovary. Possible fluid in the RIGHT adnexal region. This likely corresponds with improving pelvic fluid seen with examination 03/27/22. Impression dictated by: Gregory Hart M.D.05/11/2022 8:06 PM Dictation Location: [place] [address] Tech: Cyn Luevanoley Transcribed By: TIFFANIE 05/11/222005 Dictated By: Gregory Hart DO 05/11/222000 Signed By: 05/11/222005 Normal [facility] Basic Metabolic Panelon 11- Anion gap [Moles/Vol] 9.6 mmol/L Normal 6.0-15.0 [facility] Comment on above: Performed By: #### F ER, CBC, BMP ####[facility] [address] [place] [address] [facility] Calcium [Mass/Vol] 8.5 mg/dL Normal 8.2-10.2 [facility] Comment on above: Performed By: #### F ER, CBC, BMP ####[facility] Uar[address] [place] [address] [facility] Chloride [Moles/Vol] 107 mmol/L Normal 95-114 [facility] Comment on above: Performed By: #### F ER, CBC, BMP ####[place] [address] [place] [address] [facility] CO2 [Moles/Vol] 24.1 mmol/L Normal 22.0-30.0 [facility] Comment on above: Performed By: #### F ER, CBC, BMP ####[place] [address] [place] [id number] [facility] Creatinine [Mass/Vol] 0.74 mg/dL Normal 0.44-1.03 [facility] Comment on above: Performed By: #### F ER, CBC, BMP ####[place] [address] Creatinine Clr Calc Pharmacy 87.78 [facility] Comment on above: Performed By: #### F ER, CBC, BMP ####[place] [address] Estimated GFR ( Letty > 60 [facility] Comment on above: Result Comment: GFR estimated reference range: According to KDOQI guidelines, <60 ml/min/1.73m2 is sufficient to diagnose a patient with chronic kidney disease. Performed By: #### F ER, CBC, BMP ####[address] Estimated GFR (Non- Am > 60 [facility] Comment on above: Performed By: #### F ER, CBC, BMP ####[place] [id number] [facility] Glucose [Mass/Vol] 89 mg/dL Normal 70-100 [facility] Comment on above: Result Comment: [place] om Glucose Reference Range is dependent on time and content of last meal. Glucose of more than 200 mg/dL in a nonstressed, ambulatory subject supports the diagnosis of Diabetes Mellitus. ADA recommended reference range Performed By: #### F ER, CBC, BMP ####[facility] [address] [place], [place] [id number] [facility] Potassium [Moles/Vol] 3.7 mmol/L Normal 3.5-5.1 [facility] Comment on above: Performed By: #### F ER, CBC, BMP ####[place] [address] [place] [id number] [facility] Sodium [Moles/Vol] 137 mmol/L Normal 136-146 [facility] Comment on above: Performed By: #### F ER, CBC, BMP ####[place] [address] [place] [address] [facility] Urea nitrogen [Mass/Vol] 6 mg/dL Low 9- [facility] Comment on above: Performed By: #### F ER, CBC, BMP ####[place] [address] [place] [address] [facility] Complete Blood Count Auto Di ffon 05-10-2022 Basophils (Bld) [#/Vol] 0.1 10*3/uL Normal 0.0-0.2 [facility] Comment on above: Result Comment: PERF ORMED BY: [facility] [address] [place] [address] PATHOLOGIST BALL ASSEMBLER RADHA GARCIA M.D. Performed By: #### F ER, CBC, BMP ####[place] [id number] [facility] Basophils/100 WBC (Bld) 1.3 % Normal . [facility] Comment on above: Performed By: #### F ER, CBC, BMP ####[place] [id number] [facility] Eosinophils (Bld) [#/Vol] 0.1 10*3/uL Normal 0.0-0.45 [facility] Comment on above: Performed By: #### F ER, CBC, BMP ####[place] [id number] [facility] Eosinophils/100 WBC (Bld) 0.9 % Normal . [facility] Comment on above: Performed By: #### F ER, CBC, BMP ####[place] [address] [place] [id number] [facility] Erythrocyte distribution width (RBC) [Ratio] 19.6 % High 11.9-15.3 [facility] Comment on above: Performed By: #### F ER, CBC, BMP ####[address] Hematocrit (Bld) [Volume fraction] 26.8 % Low 34.0-46.4 [facility] Comment on above: Performed By: #### F ER, CBC, BMP ####[address] Hemoglobin (Bld) [Mass/Vol] 8.7 g/dL Low 11.8-15.4 [facility] Comment on above: Performed By: #### F ER, CBC, BMP ####[address] Lymphocytes (Bld) [#/Vol] 1.7 10*3/uL Normal 1.00-4.8 [facility] Comment on above: Performed By: #### F ER, CBC, BMP ####[address] Lymphocytes/100 WBC (Bld) 23.9 % Normal . [facility] Comment on above: Performed By: #### F ER, CBC, BMP ####[address] MCH (RBC) [Entitic mass] 25.5 pg Normal 24.7-34.3 [facility] Comment on above: Performed By: #### F ER, CBC, BMP ####[address] MCV (RBC) [Entitic vol] 78.9 fL Low 80-100 [facility] Comment on above: Performed By: #### F ER, CBC, BMP ####[address] Mean Corpuscular HGB Conc 32.4 g/dL Normal 32.0-35.0 [facility] Comment on above: Performed By: #### F ER, CBC, BMP ####[address] Monocytes (Bld) [#/Vol] 0.4 10*3/uL Normal 0.0-0.8 [facility] Comment on above: Performed By: #### F ER, CBC, BMP ####[address] Monocytes/100 WBC (Bld) 6.3 % Normal . [facility] Comment on above: Performed By: #### F ER, CBC, BMP ####[address] Neutrophils (Bld) [#/Vol] 4.8 10*3/uL Normal 1.8-7.7 [facility] Comment on above: Performed By: #### F ER, CBC, BMP ####[address] Neutrophils/100 WBC (Bld) 67.6 % Normal . [facility] Comment on above: Performed By: #### F ER, CBC, BMP ####[address] Nucleated RBC/100 WBC (Bld) [Ratio] 0.0 % Normal 0-0.5 [facility] Comment on above: Performed By: #### F ER, CBC, BMP ####[address] Platelet mean volume (Bld) [Entitic vol] 7.5 fL Normal 6.3-10.7 [facility] Comment on above: Performed By: #### F ER, CBC, BMP ####[address] Platelets (Bld) [#/Vol] 388 10*3/uL Normal 150-450 [facility] Comment on above: Performed By: #### F ER, CBC, BMP ####[place] [id number] [facility] RBC (Bld) [#/Vol] 3.40 10*6/uL Low 3.60-5.00 [facility] Comment on above: Performed By: #### F ER, CBC, BMP ####[address] [place] [address] [facility] WBC (Bld) [#/Vol] 7.0 10*3/uL Normal 4.5-11.0 [facility] Comment on above: Performed By: #### F ER, CBC, BMP ####[facility] [place] [id number] [facility] Ferritinon 05-10-2022 Ferritin [Mass/Vol] 10.7 ng/mL Low -306.8 [facility] Comment on above: Result Comment: PERF ORMED BY: [facility] [address] [place] [address] PATHOLOGIST BALL ASSEMBLER RADAH GARCIA M.D. Performed By: #### F ER, CBC, BMP ####[facility] Ihl[address] Ferritin [Mass/volume] in Se rum or PlasmaOrdered By: Jarad Mcmillan on 05-10-2022 Ferritin [Mass/Vol] 10.7 ng/mL -306.8 [facility] Stool Cultureon 05-10-2022 Stool culture Negative for Shiga T oxin 1 Negative for Shiga Toxin 2 -- A negative Shiga Toxin result may occur if the antigen level in the specimen is below the detection limit of the assay. Stool culture results No Salmonella, Shigella, Campy or E. coli 0157:H7 Isolated PERFORMED BY: [facility] [address] [place] [address] PATHOLOGIST BALL ASSEMBLER RADHA GARCIA M.D. Normal [facility] Comment on above: Performed By: #### C BC, MG, CMP, ESR, LIPASE, TSH3 #### [facility] [address] Stool bacteria identificatio n by cultureOrdered By: Margarita Gay on 05-10-2022 Bacteria identified Cx Nom (Stl) [facility] Activated partial thrombopla stin time (aPTT) in platelet poor plasma by coagulation aOrdered By: Truman Hu on 05-09-2022 aPTT Coag (PPP) [Time] s 25.1-36.5 [facility] Comment on above: Critical valueresult calledand read backat 1522 on 05/09/22 Albumin [Mass/volume] in Ser um or PlasmaOrdered By: Truman Hu on 05-09-2022 Albumin [Mass/Vol] 3.0 g/dL 3.2-5.5 [facility] Automated erythrocytes count in urine sediment (number/area)Ordered By: Truman Hu on 05-09-2022 RBC Auto (Urine sed) [#/Area] 0-1 [HPF] 0-4 [facility] Automated leukocytes count i n urine sediment (number/area)Ordered By: Truman Hu on 05-09-2022 WBC Auto (Urine sed) [#/Area] 50-100 [HPF] 0-4 [facility] Automated urine sediment catalina cium oxalate crystal count by microscopy (number/high powOrdered By: Truman Hu on 05-09-2022 Calcium oxalate crystals LM.HPF (Urine sed) [#/Area] 1+ [HPF] [facility] Bilirubin Test strip Ql (U)O rdered By: Truman Hu on 05-09-2022 Bilirubin Ql (U) Negative Negative [facility] C reactive protein [Mass/vol ume] in Serum or PlasmaOrdered By: Truman Hu on 05-09-2022 CRP [Mass/Vol] < 0.5 mg/dL 0.0-1.0 [facility] C-Reactive Proteinon 022 CRP [Mass/Vol] mg/L Normal 0.0-1.0 [facility] Comment on above: Result Comment: PERF ORMED BY: [place] [address] PATHOLOGIST BALL ASSEMBLER RADHA GARCIA M.D. Performed By: #### C BC, MG, CMP, ESR, LIPASE, TSH3 #### [address] Clostridioides difficile tox in B tcdB gene [Presence] in Stool by SARABJIT with probe deteOrdered By: Truman Hu on 05-09-2022 C. difficile toxin B tcdB gene SARABJIT+probe Ql (Stl) Negative Negative [facility] Comment on above: Testing performed by RT-PCR Clostridium Difficileon 04-27 Clostridium Difficile Negative Normal Negative [facility] Comment on above: Order Comment: > or = to 3 loose/watery stools in the last 24 HRS? Y Is patient on promotility agents or tube feeding? N Result Comment: Test ing performed by RT-PCR PERFORMED BY: [facility] [address] [place] [address] PATHOLOGIST BALL ASSEMBLER RADHA GARCIA M.D. Performed By: #### C BC, MG, CMP, ESR, LIPASE, TSH3 #### [facility] [address] Color Auto (U)Ordered By: Reagan Hu on 05-09-2022 Color (U) Yellow Yellow [facility] Complete Blood Count Auto Di ffon 05-09-2022 Basophils (Bld) [#/Vol] 0.1 10*3/uL Normal 0.0-0.2 [facility] Comment on above: Result Comment: PERF ORMED BY: [facility] [address] [place] [address] PATHOLOGIST BALL ASSEMBLER RADHA GARCIA M.D. Performed By: #### P TT, CBC, PT, CMP ####[place] [address] [place] [address] [place] Basophils/100 WBC (Bld) 0.8 % Normal . [facility] Comment on above: Performed By: #### P TT, CBC, PT, CMP ####[place] [address] [place] [address] [place] Eosinophils (Bld) [#/Vol] 0.0 10*3/uL Normal 0.0-0.45 [facility] Comment on above: Performed By: #### P TT, CBC, PT, CMP ####[place] [address] [place] Eosinophils/100 WBC (Bld) 0.4 % Normal . [facility] Comment on above: Performed By: #### P TT, CBC, PT, CMP ####[address] Erythrocyte distribution width (RBC) [Ratio] 21.2 % High 11.9-15.3 [facility] Comment on above: Performed By: #### P TT, CBC, PT, CMP ####[address] Hematocrit (Bld) [Volume fraction] 22.4 % Low 34.0-46.4 [facility] Comment on above: Performed By: #### P TT, CBC, PT, CMP ####[address] Hemoglobin (Bld) [Mass/Vol] 6.9 g/dL Low 11.8-15.4 [facility] Comment on above: Performed By: #### P TT, CBC, PT, CMP ####[address] Lymphocytes (Bld) [#/Vol] 1.5 10*3/uL Normal 1.00-4.8 [facility] Comment on above: Performed By: #### P TT, CBC, PT, CMP ####[address] Lymphocytes/100 WBC (Bld) 20.1 % Normal . [facility] Comment on above: Performed By: #### P TT, CBC, PT, CMP ####[address] MCH (RBC) [Entitic mass] 24.5 pg Low 24.7-34.3 [facility] Comment on above: Performed By: #### P TT, CBC, PT, CMP ####[address] MCV (RBC) [Entitic vol] 79.7 fL Low 80-100 [facility] Comment on above: Performed By: #### P TT, CBC, PT, CMP ####[address] Mean Corpuscular HGB Conc 30.7 g/dL Low 32.0-35.0 [facility] Comment on above: Performed By: #### P TT, CBC, PT, CMP ####[address] Monocytes (Bld) [#/Vol] 0.4 10*3/uL Normal 0.0-0.8 [facility] Comment on above: Performed By: #### P TT, CBC, PT, CMP ####[address] Monocytes/100 WBC (Bld) 5.1 % Normal . [facility] Comment on above: Performed By: #### P TT, CBC, PT, CMP ####[address] Neutrophils (Bld) [#/Vol] 5.4 10*3/uL Normal 1.8-7.7 [facility] Comment on above: Performed By: #### P TT, CBC, PT, CMP ####[address] Neutrophils/100 WBC (Bld) 73.6 % Normal . [facility] Comment on above: Performed By: #### P TT, CBC, PT, CMP ####[address] Nucleated RBC/100 WBC (Bld) [Ratio] 0.0 % Normal 0-0.5 [facility] Comment on above: Performed By: #### P TT, CBC, PT, CMP ####[address] Platelet mean volume (Bld) [Entitic vol] 7.8 fL Normal 6.3-10.7 [facility] Comment on above: Performed By: #### P TT, CBC, PT, CMP ####[address] Platelets (Bld) [#/Vol] 372 10*3/uL Normal 150-450 [facility] Comment on above: Performed By: #### P TT, CBC, PT, CMP ####[address] RBC (Bld) [#/Vol] 2.81 10*6/uL Low 3.60-5.00 [facility] Comment on above: Performed By: #### P TT, CBC, PT, CMP ####[address] WBC (Bld) [#/Vol] 7.4 10*3/uL Normal 4.5-11.0 [facility] Comment on above: Performed By: #### P TT, CBC, PT, CMP ####[address] Comprehensive Metabolic Pane eagle 05-09-2022 Albumin [Mass/Vol] 3.0 g/dL Low 3.2-5.5 [facility] Comment on above: Performed By: #### P TT, CBC, PT, CMP ####[address] Albumin/Globulin [Mass ratio] 1.3 {ratio} Normal [facility] Comment on above: Performed By: #### P TT, CBC, PT, CMP ####[place] [id number] [facility] ALP [Catalytic activity/Vol] 55 U/L Normal 32-92 [facility] Comment on above: Performed By: #### P TT, CBC, PT, CMP ####[place] [id number] [facility] ALT [Catalytic activity/Vol] 22 U/L Normal 10-60 [facility] Comment on above: Performed By: #### P TT, CBC, PT, CMP ####[place] [id number] [facility] Anion gap [Moles/Vol] 10.0 mmol/L Normal 6.0-15.0 [facility] Comment on above: Performed By: #### P TT, CBC, PT, CMP ####[address] [address] [facility] AST [Catalytic activity/Vol] 22 U/L Normal 10-42 [facility] Comment on above: Performed By: #### P TT, CBC, PT, CMP ####[place] [id number] [facility] Bilirubin [Mass/Vol] 0.5 mg/dL Normal 0.3-1.2 [facility] Comment on above: Performed By: #### P TT, CBC, PT, CMP ####[place] [id number] [facility] Calcium [Mass/Vol] 8.6 mg/dL Normal 8.2-10.2 [facility] Comment on above: Performed By: #### P TT, CBC, PT, CMP ####[place] [id number] [facility] Chloride [Moles/Vol] 106 mmol/L Normal 95-114 [facility] Comment on above: Performed By: #### P TT, CBC, PT, CMP ####[place] [id number] [facility] CO2 [Moles/Vol] 24.4 mmol/L Normal 22.0-30.0 [facility] Comment on above: Performed By: #### P TT, CBC, PT, CMP ####[place] [id number] [facility] Creatinine [Mass/Vol] 0.64 mg/dL Normal 0.44-1.03 [facility] Comment on above: Performed By: #### P TT, CBC, PT, CMP ####[place] [phone] [place] Creatinine Clr Calc Pharmacy 101.49 Normal [facility] Comment on above: Result Comment: PERF ORMED BY: [facility] [address] [place] [address] PATHOLOGIST BALL ASSEMBLER RADHA GARCIA M.D. Performed By: #### P TT, CBC, PT, CMP ####[place] [address] [place] [address] [facility] Estimated GFR ( Letty > 60 [facility] Comment on above: Result Comment: GFR estimated reference range: According to KDOQI guidelines, <60 ml/min/1.73m2 is sufficient to diagnose a patient with chronic kidney disease. Performed By: #### P TT, CBC, PT, CMP ####[place] [id number] [facility] Estimated GFR (Non- Am > 60 [facility] Comment on above: Performed By: #### P TT, CBC, PT, CMP ####[place] [id number] [facility] Globulin (S) [Mass/Vol] 2.4 g/dL [facility] Comment on above: Performed By: #### P TT, CBC, PT, CMP ####[place] [id number] [facility] Glucose [Mass/Vol] 91 mg/dL Normal 70-100 [facility] Comment on above: Result Comment: [place] Glucose Reference Range is dependent on time and content of last meal. Glucose of more than 200 mg/dL in a nonstressed, ambulatory subject supports the diagnosis of Diabetes Mellitus. ADA recommended reference range Performed By: #### P TT, CBC, PT, CMP ####[place] [id number] [facility] Potassium [Moles/Vol] 3.4 mmol/L Low 3.5-5.1 [facility] Comment on above: Performed By: #### P TT, CBC, PT, CMP ####[place] [id number] [facility] Protein [Mass/Vol] 5.4 g/dL Low 6.1-7.9 [facility] Comment on above: Performed By: #### P TT, CBC, PT, CMP ####[place] [id number] [facility] Sodium [Moles/Vol] 137 mmol/L Normal 136-146 [facility] Comment on above: Performed By: #### P TT, CBC, PT, CMP ####[facility] [address] Urea nitrogen [Mass/Vol] 6 mg/dL Low 03-19 [facility] Comment on above: Performed By: #### P TT, CBC, PT, CMP ####[facility] [address] [place] [address] [place] Dipstick and Microscopicon 1 07-09-2021 Appearance (U) Cloudy Critically abnormal Clear [facility] Comment on above: Order Comment: Name Collection Type:: Clean-Voided Midstream Performed By: #### C BC, MG, CMP, ESR, LIPASE, TSH3 #### [facility] [address] Bacteria,Urine 4+ High None Seen [facility] Comment on above: Order Comment: Name Collection Type:: Clean-Voided Midstream Performed By: #### C BC, MG, CMP, ESR, LIPASE, TSH3 #### [facility] [address] Bilirubin,Urine Negative Normal Negative [facility] Comment on above: Order Comment: Name Collection Type:: Clean-Voided Midstream Performed By: #### C BC, MG, CMP, ESR, LIPASE, TSH3 #### [facility] [address] Calcium Oxalate Crystals,Urine 1+ Normal [facility] Comment on above: Order Comment: Name Collection Type:: Clean-Voided Midstream Performed By: #### C BC, MG, CMP, ESR, LIPASE, TSH3 #### [facility] [address] [place] [address] [place] Color (U) Yellow Normal Yellow [facility] Comment on above: Order Comment: Name Collection Type:: Clean-Voided Midstream Performed By: #### C BC, MG, CMP, ESR, LIPASE, TSH3 #### [facility] [address] [place] [address] [place] Glucose Ql (U) Normal Normal Normal [facility] Comment on above: Order Comment: Name Collection Type:: Clean-Voided Midstream Performed By: #### C BC, MG, CMP, ESR, LIPASE, TSH3 #### [facility] [address] [place] [address] [place] Hyaline Casts,Urine 9-19 High 0-8 [facility] Comment on above: Order Comment: Name Collection Type:: Clean-Voided Midstream Performed By: #### C BC, MG, CMP, ESR, LIPASE, TSH3 #### [address] Ketones Ql (U) Negative Normal Negative [facility] Comment on above: Order Comment: Name Collection Type:: Clean-Voided Midstream Performed By: #### C BC, MG, CMP, ESR, LIPASE, TSH3 #### [address] Leukocyte esterase Test strip Ql (U) 3+ High Negative [facility] Comment on above: Order Comment: Name Collection Type:: Clean-Voided Midstream Performed By: #### C BC, MG, CMP, ESR, LIPASE, TSH3 #### [address] Nitrite,Urine Positive High Negative [facility] Comment on above: Order Comment: Name Collection Type:: Clean-Voided Midstream Performed By: #### C BC, MG, CMP, ESR, LIPASE, TSH3 #### [facility] [address] [place] [address] Occult Blood,Urine Trace High Negative [facility] Comment on above: Order Comment: Name Collection Type:: Clean-Voided Midstream Performed By: #### C BC, MG, CMP, ESR, LIPASE, TSH3 #### [place] [address] [place] Othe Crystals,Urine None Seen Normal [facility] Comment on above: Order Comment: Name Collection Type:: Clean-Voided Midstream Performed By: #### C BC, MG, CMP, ESR, LIPASE, TSH3 #### [place] [address] [place] pH (U) 6.0 [pH] Normal 5.0-9.0 [facility] Comment on above: Order Comment: Name Collection Type:: Clean-Voided Midstream Performed By: #### C BC, MG, CMP, ESR, LIPASE, TSH3 #### [address] Protein,Urine Negative Normal Negative [facility] Comment on above: Order Comment: Name Collection Type:: Clean-Voided Midstream Performed By: #### C BC, MG, CMP, ESR, LIPASE, TSH3 #### [address] RBC LM.HPF (Urine sed) [#/Area] 0 /[HPF] Normal 0-4 [facility] Comment on above: Order Comment: Name Collection Type:: Clean-Voided Midstream Performed By: #### C BC, MG, CMP, ESR, LIPASE, TSH3 #### [address] Specificy [place],Urine 1.014 Normal 1.001-1.03 0 [facility] Comment on above: Order Comment: Name Collection Type:: Clean-Voided Midstream Performed By: #### C BC, MG, CMP, ESR, LIPASE, TSH3 #### [address] Squamous Epithelial Cell,Urine 0-1 Normal 0-2 [facility] Comment on above: Order Comment: Name Collection Type:: Clean-Voided Midstream Performed By: #### C BC, MG, CMP, ESR, LIPASE, TSH3 #### [address] Urobilinogen,Urine Normal Normal Normal [facility] Comment on above: Order Comment: Name Collection Type:: Clean-Voided Midstream Performed By: #### C BC, MG, CMP, ESR, LIPASE, TSH3 #### [address] WBC,Urine 50-100 High 0-4 [facility] Comment on above: Order Comment: Name Collection Type:: Clean-Voided Midstream Performed By: #### C BC, MG, CMP, ESR, LIPASE, TSH3 #### [facility] [address] [place] [id number] [facility] ECG 12 lead ECGon 05-09-2022 ECG 12 lead ECG [facility] Main [place] [address] [place] [address] Electrocardiograph Report Signed Patient: Raquel Correa MR#: [id number] : 1985 Acct:[id number] Age/Sex: 37 / F ADM Date: 05/09/22 Loc: Room: [address] [place] [address] Type: DIS IN Attending Dr: Jessica Akhtar MD Ordering Provider: Truman Hu PA-C Date of Service: 05/09/22 ECG/ECG 12 lead ECG: RECTAL BLEEDING Copies to: Test Reason : Blood Pressure : 122/060 mmHG Vent. Rate : 092 BPM Atrial Rate : 092 BPM P-R Int : 140 ms QRS Dur : 080 ms QT Int : 352 ms P-R-T Axes : 059 069 054 degrees QTc Int : 435 ms Normal sinus rhythm Nonspecific T wave abnormality Abnormal ECG When compared with ECG of 31-MAR-2022 11:24, Nonspecific T wave abnormality has replaced inverted T waves in Inferior leads Confirmed by Westley Greenfield DO ([id number]) on 05/09/2022 2:39:46 PM Referred By: Electronically Signed By:Westley Greenfield DO Transcribed By: MUS Signed By Westley Greenfield DO 2 1439 Normal [facility] Erythrocyte Sedimentation Ra josey 05-09-2022 ESR (Bld) [Velocity] 2 mm/h Normal 0-19 [facility] Comment on above: Result Comment: PERF ORMED BY: [place] [address] PATHOLOGIST BALL ASSEMBLER RADHA GARCIA M.D. Performed By: #### C BC, MG, CMP, ESR, LIPASE, TSH3 #### [place] [id number] [facility] Erythrocyte sedimentation ra te by Photometric methodOrdered By: Truman Hu on 05-09-2022 ESR Photometric method (Bld) [Velocity] 2 mm/hr 0-19 [facility] Globulin Calc (S) [Mass/Vol] Ordered By: Truman Hu on 05-09-2022 Globulin (S) [Mass/Vol] 2.4 g/dL [facility] HCG ( test) IA.rapi d Ql (U)Ordered By: Truman Hu on 05-09-2022 HCG ( test) Ql (U) Negative [facility] HCG,Urineon 05-09-2022 Beta HCG ( test) Ql (U) Negative Normal [facility] Comment on above: Order Comment: Name Collection Type:: Clean-Voided Midstream Result Comment: PERF ORMED BY: [facility] [address] [place] [address] PATHOLOGIST BALL ASSEMBLER RADHA GARCIA M.D. Performed By: #### C BC, MG, CMP, ESR, LIPASE, TSH3 #### [facility] [address] Ketones Auto test strip (U) [Mass/Vol]Ordered By: Truman Hu on 05-09-2022 Ketones (U) [Mass/Vol] Negative Negative [facility] Laboratory - CoagulationOrde red By: Truman Hu on 05-09-2022 PT Coag (PPP) [Time] 11.0 s 9.0-12.9 [facility] Laboratory - UrinalysisOrder ed By: Truman Hu on 05-09-2022 Hyaline casts LM Ql (Urine sed) 9-19 [LPF] 0-8 [facility] LeukoReduced RBCon 2 LeukoReduced RBC TRANSFUSED 05/09/22 2103 Normal [facility] Nitrite Test strip Ql (U)Ord ered By: Truman Hu on 05-09-2022 Nitrite Ql (U) Positive Negative [facility] Partial Thromboplastin Timeo n 05-09-2022 aPTT Coag (Bld) [Time] s Off scale low 25.1-36.5 [facility] Comment on above: Result Comment: Crit ical value result called and read back at 1522 on 05/09/22 PERFORMED BY: [facility] [address] [place] [id number] PATHOLOGIST BALL ASSEMBLER RADHA GARCIA M.D. Performed By: #### P TT, CBC, PT, CMP ####[facility] [id number] [place] [address] [facility] Platelet poor plasma interna tional normalized ratio (INR) by coagulation assay (relatOrdered By: Truman Hu on 05-09-2022 INR Coag (PPP) [Relative time] 1.0 {INR} [facility] Comment on above: INR Therapeutic Rang e A) Pre- and Peroperative OAT started two weeks before surgery. NOT HIP SURGERY: 1.5 - 2.5 HIP SURGERY: 2 - 3B) Primary and secondary prevention of venous THROMBOSIS: 2 - 3C) Active venous thrombosis, pulmonary embolismand prevention of recurrent venous thrombosis: 2 - 3D) Prevention of arterial thromboembolismincluding patients with mechanical heart valves: 3 - 4.5 Protein Auto test strip (U) [Mass/Vol]Ordered By: Truman Hu on 05-09-2022 Protein (U) [Mass/Vol] Negative Negative [facility] Protein [Mass/volume] in Ser um or PlasmaOrdered By: Truman Hu on 05-09-2022 Protein [Mass/Vol] 5.4 g/dL 6.1-7.9 [facility] Prothrombin Time INRon 05-09 INR Coag (PPP) [Relative time] 1.0 {INR} Normal [facility] Comment on above: Result Comment: INR Therapeutic Range A) Pre- and Peroperative OAT started two weeks before surgery. NOT HIP SURGERY: 1.5 - 2.5 HIP SURGERY: 2 - 3 B) Primary and secondary prevention of venous THROMBOSIS: 2 - 3 C) Active venous thrombosis, pulmonary embolism and prevention of recurrent venous thrombosis: 2 - 3 D) Prevention of arterial thromboembolism including patients with mechanical heart valves: 3 - 4.5 Performed By: #### P TT, CBC, PT, CMP ####[facility] [id number] [place] [address] [facility] PT Coag (PPP) [Time] 11.0 s Normal 9.0-12.9 [facility] Comment on above: Performed By: #### P TT, CBC, PT, CMP ####[facility] [id number] [place] [address] [facility] Serum or plasma alanine carlos otransferase measurement without P-5'-P (enzymatic activiOrdered By: Truman Hu on 05-09-2022 ALT No additional P-5'-P [Catalytic activity/Vol] 22 U/L 10-60 [facility] Serum or plasma albumin/glob ulin mass ratioOrdered By: Truman Hu on 05-09-2022 Albumin/Globulin [Mass ratio] 1.3 {ratio} [facility] Serum or plasma alkaline belkys sphatase measurement (enzymatic activity/volume)Ordered By: Truman Hu on 05-09-2022 ALP [Catalytic activity/Vol] 55 U/L 32-92 [facility] Serum or plasma aspartate am inotransferase measurement (enzymatic activity/volume)Ordered By: Truman Hu on 05-09-2022 AST [Catalytic activity/Vol] 22 U/L 10-42 [facility] Serum or plasma total biliru bin measurement (mass/volume)Ordered By: Truman Hu on 05-09-2022 Bilirubin [Mass/Vol] 0.5 mg/dL 0.3-1.2 [facility] Specific gravity Auto test s trip (U) [Rel density]Ordered By: Truman Hu on 05-09-2022 Specific gravity (U) [Rel density] 1.014 1.001-1.03 0 [facility] Squamous epithelial cells de tection in urine sediment by light microscopyOrdered By: Truman Hu on 05-09-2022 Epithelial cells.squamous LM Ql (Urine sed) 0-1 [HPF] 0-2 [facility] Stool Occult Blood (Guaiac)o n 05-09-2022 Stool Occult Blood (Guaiac) Occult Blood Positive for Occult Blood by Guaiac Methodology -- Reference range = Negative PERFORMED BY: [facility] [address] [place] [address] PATHOLOGIST BALL ASSEMBLER RADHA GARCIA M.D. [facility] Comment on above: Performed By: #### C BC, MG, CMP, ESR, LIPASE, TSH3 #### [facility] [address] [place] [id number] [facility] Type and Screenon 05-09-2022 ABO and Rh group Nom (Bld) Blood group O Rh(D) positive [facility] Comment on above: Order Comment: Trans fuse now? Y Number of units to transfuse now? 2 Result Comment: PERF ORMED BY: [facility] [address] [place] [address] PATHOLOGIST BALL ASSEMBLER RADHA GARCIA M.D. Urine Cultureon 05-09-2022 Bacteria identified Cx Nom (U) Results called at 0717 on 05/12/22 ORGANISM: Escherichia coli (ESBL) (O:ESCCOLESBL) [place] Count >100,000 Aerobic DIVYA Charge (NUC86) SUSCEPTIBILITY ORGANISM: O:ESCCOLESBL ANTIBIOTIC INTERPRETATION DIVYA Amikacin S <16 Ampicillin R* >16 Ampicillin/Sulbactam I 1616/8 Aztreonam ESBL >16 Cefazolin R* >16 Cefepime R* >16 Ceftazidime ESBL >16 Ceftazidime/Avibactam S <8 Ceftriaxone ESBL >32 Ciprofloxacin S <1 Ertapenem S <0.5 Gentamicin S <4 Levofloxacin S <2 Meropenem S <1 Nitrofurantoin S <32 Piperacillin/Tazobactam S <16 Tetracycline S <4 Tigecycline S <2 Tobramycin S <4 Trimethoprim/Sulfamethoxaz ole S <2 S = SUSCEPTIBLE I = INTERMEDIATE R = RESISTANT BLANK = DATA NOT AVAILABLE, OR DRUG NOT ADVISABLE OR TESTED R* = RESISTANCE DUE TO EXTENDED SPECTRUM BETA-LACTAMASES ESBL = EXTENDED SPECTRUM BETA-LACTAMASE TFG = THYMIDINE-DEPENDENT STRAIN EVE = BETA-LACTAMASE POSITIVE IB = INDUCIBLE BETA-LACTAMASE. APPEARS IN PLACE OF 'S' WITH SPECIES KNOWN TO POSSESS INDUCIBLE BETA-LACTAMASES. POTENTIALLY THEY MAY BECOME RESISTANT TO ALL B-LACTAM DRUGS. PERFORMED BY: [facility] [address] [place] [address] PATHOLOGIST BALL ASSEMBLER RADHA GARCIA M.D. Normal [facility] Comment on above: Performed By: #### C BC, MG, CMP, ESR, LIPASE, TSH3 #### [facility] [address] Urine bacteria detection by automated methodOrdered By: Truman Hu on 05-09-2022 Bacteria Auto Ql (U) 4+ None Seen [facility] Urine clarity by refractomet ry automatedOrdered By: Truman Hu on 05-09-2022 Clarity Refractometry automated (U) Cloudy Clear [facility] Urine culture routineOrdered By: Truman Hu on 05-09-2022 Bacteria identified Cx Nom (U) Escherichia coli (ESBL) [facility] Urine glucose measurement by automated test strip (mass/volume)Ordered By: Truman Hu on 05-09-2022 Glucose Auto test strip (U) [Mass/Vol] Normal mg/dL Normal [facility] Urine hemoglobin detection b y automated test stripOrdered By: Truman Hu on 05-09-2022 Hemoglobin Auto test strip Ql (U) Trace Negative [facility] Urine leukocyte esterase det ection by automated test stripOrdered By: Truman Hu on 05-09-2022 Leukocyte esterase Auto test strip Ql (U) 3+ Negative [facility] Urine sediment crystal ident ification by light microscopyOrdered By: Truman Hu on 05-09-2022 Crystals LM Nom (Urine sed) None seen [HPF] [facility] Urobilinogen Auto test strip (U) [Mass/Vol]Ordered By: Truman Hu on 05-09-2022 Urobilinogen (U) [Mass/Vol] Normal mg/dL Normal [facility] pH Auto test strip (U)Ordere d By: Truman Hu on 05-09-2022 pH (U) 6.0 [pH] 5.0-9.0 [facility] CBC AUTO DIFFon 04-16-2022 BASO # 0.0 103/ul Normal 0.0-0.1 [facility] Comment on above: Performed By: #### P T, PTT #### [facility] [address] [place] [address] Dr. Tori Thomas Basophils/100 WBC (Bld) 0.7 % Normal 0.2-2.0 [facility] Comment on above: Performed By: #### P T, PTT #### [facility] [address] [place] [address] Dr. Tori Thomas EO # 0.1 103/ul Normal 0.0-0.7 [facility] Comment on above: Performed By: #### P T, PTT #### [facility] [address] [place] [address] Dr. Tori Thomas Eosinophils/100 WBC (Bld) 0.8 % Critically low 0.9-7.0 [facility] Comment on above: Performed By: #### P T, PTT #### [facility] [address] [place] [address] Dr. Tori Thomas Erythrocyte distribution width (RBC) [Ratio] 14.9 % Normal 11.0-15.0 [facility] Comment on above: Performed By: #### P T, PTT #### [facility] [address] [place] [address] Dr. Tori Thomas Hematocrit (Bld) [Volume fraction] 29.8 % Critically low 36.0-48.0 [facility] Comment on above: Performed By: #### P T, PTT #### [facility] [address] [place] [address] Dr. Tori Thomas Hemoglobin (Bld) [Mass/Vol] 8.8 g/dL Critically low 12.0-16.0 [facility] Comment on above: Performed By: #### P T, PTT #### [facility] [address] [place] [address] Dr. Tori Thomas IG # 0.01 10e3/ul Normal 0.00-0.03 [facility] Comment on above: Performed By: #### P T, PTT #### [facility] [address] [place] [address] Dr. Tori Thomas IG % 0.2 % Normal 0.0-0.5 [facility] Comment on above: Performed By: #### P T, PTT #### [facility] [address] [place] [address] Dr. Tori Thomas LYMPH # 1.3 103/ul Normal 1.2-3.8 [facility] Comment on above: Performed By: #### P T, PTT #### [facility] [address] [place] [address] Dr. Tori Thomas Lymphocytes/100 WBC (Bld) 21.1 % Normal 20.5-60.0 [facility] Comment on above: Performed By: #### P T, PTT #### [facility] [address] [place] [address] Dr. Tori Thomas MANUAL DIFF REQ NO Normal [facility] Comment on above: Performed By: #### P T, PTT #### [facility] [address] [place] [address] Dr. Tori Thomas MCH (RBC) [Entitic mass] 24.9 pg Critically low 26.7-34.0 [facility] Comment on above: Performed By: #### P T, PTT #### [facility] [address] [place] [address] Dr. Tori Thomas MCHC (RBC) [Mass/Vol] 29.5 g/dL Critically low 29.9-35.2 [facility] Comment on above: Performed By: #### P T, PTT #### [facility] [address] [place] [address] Dr. Tori Thomas MCV (RBC) [Entitic vol] 84.4 fL Normal 81.0-99.0 [facility] Comment on above: Performed By: #### P T, PTT #### [facility] [address] [place] [address] Dr. Tori Thomas MONO # 0.4 103/ul Normal 0.3-0.8 [facility] Comment on above: Performed By: #### P T, PTT #### [facility] [address] [place] [address] Dr. Tori Thomas Monocytes/100 WBC (Bld) 6.6 % Normal 1.7-12.0 [facility] Comment on above: Performed By: #### P T, PTT #### [facility] [address] [place] [address] Dr. Tori Thomas NEUT # 4.2 103/ul Normal 1.4-6.5 [facility] Comment on above: Performed By: #### P T, PTT #### [facility] [address] [place] [address] Dr. Tori Thomas Neutrophils/100 WBC (Bld) 70.6 % Normal 43.0-75.0 [facility] Comment on above: Performed By: #### P T, PTT #### [facility] [address] [place] [address] Dr. Tori Thomas Platelet mean volume (Bld) [Entitic vol] 9.0 fL Critically low 9.5-13.5 [facility] Comment on above: Performed By: #### P T, PTT #### [facility] [address] [place] [address] Dr. Tori Thomas PLT 337 103/ul Normal 150-450 [facility] Comment on above: Performed By: #### P T, PTT #### [facility] [address] [place] [address] Dr. Tori Thomas RBC 3.53 106/ul Critically low 4.20-5.40 [facility] Comment on above: Performed By: #### P T, PTT #### [facility] [address] [place] [address] Dr. Tori Thomas WBC 5.9 103/ul Normal 4.0-11.0 [facility] Comment on above: Performed By: #### P T, PTT #### [facility] [address] [place] [address] Dr. Tori Thomas FERRITINon 04-16-2022 Ferritin [Mass/Vol] 23.0 ng/mL Normal 6.2-137.0 [facility] Comment on above: Performed By: #### U AMIC #### [facility] [address] [place] [address] Dr. Tori Walter 04-16-2022 Iron [Mass/Vol] 17.0 ug/dL Critically low 50.0-170.0 [facility] Comment on above: Performed By: #### U AMIC #### [facility] [address] [place] [address] Dr. Tori Thomas PROF 14(COMP METB)on 022 Albumin [Mass/Vol] 3.6 g/dL Normal 3.4-5.0 [facility] Comment on above: Performed By: #### C MP #### [facility] [address] [place] [address] Dr. Tori Thomas Albumin/Globulin [Mass ratio] 1.0 {ratio} Normal [facility] Comment on above: Performed By: #### C MP #### [facility] [address] [place] [address] Dr. Tori Thomas ALP [Catalytic activity/Vol] 72 U/L Normal 46-116 [facility] Comment on above: Performed By: #### C MP #### [facility] [address] [place] [address] Dr. Tori Thomas ALT [Catalytic activity/Vol] 19 U/L Normal 14-59 [facility] Comment on above: Performed By: #### C MP #### [facility] [address] [place] [address] Dr. Tori Thomas Anion gap [Moles/Vol] 14.5 mmol/L Normal [facility] Comment on above: Performed By: #### C MP #### [facility] [address] [place] [address] Dr. Tori Thomas AST [Catalytic activity/Vol] 15 U/L Normal 15-37 [facility] Comment on above: Performed By: #### C MP #### [facility] [address] [place] [address] Dr. Tori Thomas Bilirubin [Mass/Vol] 0.3 mg/dL Normal 0.2-1.0 [facility] Comment on above: Performed By: #### C MP #### [facility] [address] [place] [address] Dr. Tori Thomas Calcium [Mass/Vol] 9.0 mg/dL Normal 8.5-10.1 [facility] Comment on above: Performed By: #### C MP #### [facility] [address] [place] [address] Dr. Tori Thomas Chloride [Moles/Vol] 104 mmol/L Normal 98-107 [facility] Comment on above: Performed By: #### C MP #### [facility] [address] [place] [address] Dr. Tori Thomas CO2 [Moles/Vol] 24.2 mmol/L Normal 21.0-32.0 [facility] Comment on above: Performed By: #### C MP #### [facility] [address] [place] [address] Dr. Tori Thomas Creatinine [Mass/Vol] 0.77 mg/dL Normal 0.55-1.02 [facility] Comment on above: Performed By: #### C MP #### [facility] [address] [place] [address] Dr. Tori Thomas EGFR-AF MAURITIAN >60 Normal >=60 [facility] Comment on above: Performed By: #### C MP #### [facility] [address] [place] [address] Dr. Tori Thomas EGFR-NON AF MAURITIAN >60 Normal >=60 [facility] Comment on above: Performed By: #### C MP #### [facility] [address] [place] [address] Dr. Tori Thomas Globulin (S) [Mass/Vol] 3.5 g/dL Normal [facility] Comment on above: Performed By: #### C MP #### [facility] [address] [place] [address] Dr. Tori Thomas Glucose [Mass/Vol] 112 mg/dL Critically high 74-106 [facility] Comment on above: Performed By: #### C MP #### [facility] [address] [place] [address] Dr. Tori Thomas Potassium [Moles/Vol] 3.7 mmol/L Normal 3.5-5.1 [facility] Comment on above: Performed By: #### C MP #### [facility] [address] [place], [place] [address] Dr. Tori Thomas Protein [Mass/Vol] 7.1 g/dL Normal 6.4-8.2 [facility] Comment on above: Performed By: #### C MP #### [facility] [address] [place] [address] [address] Tori Thomas Sodium [Moles/Vol] 139 mmol/L Normal 136-145 [facility] Comment on above: Performed By: #### C MP #### [facility] [address] [place] [address] [address] Tori Thomas Urea nitrogen [Mass/Vol] 7.0 mg/dL Normal 7.0-18.0 [facility] Comment on above: Performed By: #### C MP #### [facility] [address] [place] [address] [address] Tori Thomas Urea nitrogen/Creatinine [Mass ratio] 9.1 mg/mg Normal [facility] Comment on above: Performed By: #### C MP #### [facility] [address] [place] [address] [address] Tori Thomas Basic Metabolic Panelon 10-0 Anion gap [Moles/Vol] 10.3 mmol/L Normal 6.0-15.0 [facility] Comment on above: Performed By: #### C BC, MG, CMP, ESR, LIPASE, TSH3 #### [facility] [address] [place] [address] [place] Calcium [Mass/Vol] 8.9 mg/dL Normal 8.2-10.2 [facility] Comment on above: Performed By: #### C BC, MG, CMP, ESR, LIPASE, TSH3 #### [facility] [address] [place] [address] [place] Chloride [Moles/Vol] 107 mmol/L Normal 95-114 [facility] Comment on above: Performed By: #### C BC, MG, CMP, ESR, LIPASE, TSH3 #### [facility] [address] [place] [address] CO2 [Moles/Vol] 23.8 mmol/L Normal 22.0-30.0 [facility] Comment on above: Performed By: #### C BC, MG, CMP, ESR, LIPASE, TSH3 #### [address] Creatinine [Mass/Vol] 0.71 mg/dL Normal 0.44-1.03 [facility] Comment on above: Performed By: #### C BC, MG, CMP, ESR, LIPASE, TSH3 #### [address] Creatinine Clr Calc Pharmacy 87.47 [facility] Comment on above: Result Comment: PERF ORMED BY: [place] [address] PATHOLOGIST BALL ASSEMBLER RADHA GARCIA M.D. Performed By: #### C BC, MG, CMP, ESR, LIPASE, TSH3 #### [address] Estimated GFR ( Letty > 60 [facility] Comment on above: Result Comment: GFR estimated reference range: According to KDOQI guidelines, <60 ml/min/1.73m2 is sufficient to diagnose a patient with chronic kidney disease. Performed By: #### C BC, MG, CMP, ESR, LIPASE, TSH3 #### [address] Estimated GFR (Non- Am > 60 [facility] Comment on above: Performed By: #### C BC, MG, CMP, ESR, LIPASE, TSH3 #### [address] Glucose [Mass/Vol] 91 mg/dL Normal 70-100 [facility] Comment on above: Result Comment: [place] om Glucose Reference Range is dependent on time and content of last meal. Glucose of more than 200 mg/dL in a nonstressed, ambulatory subject supports the diagnosis of Diabetes Mellitus. ADA recommended reference range Performed By: #### C BC, MG, CMP, ESR, LIPASE, TSH3 #### [facility] [address] Potassium [Moles/Vol] 4.1 mmol/L Normal 3.5-5.1 [facility] Comment on above: Performed By: #### C BC, MG, CMP, ESR, LIPASE, TSH3 #### [facility] [address] Sodium [Moles/Vol] 137 mmol/L Normal 136-146 [facility] Comment on above: Performed By: #### C BC, MG, CMP, ESR, LIPASE, TSH3 #### [facility] [address] Urea nitrogen [Mass/Vol] 3 mg/dL Low 9-23 [facility] Comment on above: Performed By: #### C BC, MG, CMP, ESR, LIPASE, TSH3 #### [facility] [address] Basophils Auto (Bld) [#/Vol] Ordered By: Jessica Akhtar on 04-02-2022 Basophils (Bld) [#/Vol] 0.0 10*3/uL 0.0-0.2 [facility] Basophils/100 WBC Auto (Bld) Ordered By: Jessica Akhtar on 04-02-2022 Basophils/100 WBC (Bld) 0.3 % . [facility] Blood hemoglobin measurement (mass/volume)Ordered By: Jessica Akhtar on 04-02-2022 Hemoglobin (Bld) [Mass/Vol] 8.8 g/dL 11.8-15.4 [facility] Blood leukocytes automated c ount (number/volume)Ordered By: Jessica Akhtar on 04-02-2022 WBC (Bld) [#/Vol] 7.6 10*3/uL 4.5-11.0 [facility] Complete Blood Count Auto Di ffon 04-02-2022 Basophils (Bld) [#/Vol] 0.0 10*3/uL Normal 0.0-0.2 [facility] Comment on above: Result Comment: PERF ORMED BY: [facility] [address] [place] [address] PATHOLOGIST BALL ASSEMBLER RADHA GARCIA M.D. Performed By: #### C BC, MG, CMP, ESR, LIPASE, TSH3 #### [address] Basophils/100 WBC (Bld) 0.3 % Normal . [facility] Comment on above: Performed By: #### C BC, MG, CMP, ESR, LIPASE, TSH3 #### [address] Eosinophils (Bld) [#/Vol] 0.1 10*3/uL Normal 0.0-0.45 [facility] Comment on above: Performed By: #### C BC, MG, CMP, ESR, LIPASE, TSH3 #### [address] Eosinophils/100 WBC (Bld) 1.3 % Normal . [facility] Comment on above: Performed By: #### C BC, MG, CMP, ESR, LIPASE, TSH3 #### [address] Erythrocyte distribution width (RBC) [Ratio] 15.0 % Normal 11.9-15.3 [facility] Comment on above: Performed By: #### C BC, MG, CMP, ESR, LIPASE, TSH3 #### [address] Hematocrit (Bld) [Volume fraction] 26.7 % Low 34.0-46.4 [facility] Comment on above: Performed By: #### C BC, MG, CMP, ESR, LIPASE, TSH3 #### [address] Hemoglobin (Bld) [Mass/Vol] 8.8 g/dL Low 11.8-15.4 [facility] [facility] Comment on above: Performed By: #### C BC, MG, CMP, ESR, LIPASE, TSH3 #### [address] Lymphocytes (Bld) [#/Vol] 1.8 10*3/uL Normal 1.00-4.8 [facility] Comment on above: Performed By: #### C BC, MG, CMP, ESR, LIPASE, TSH3 #### [address] Lymphocytes/100 WBC (Bld) 23.8 % Normal . [facility] Comment on above: Performed By: #### C BC, MG, CMP, ESR, LIPASE, TSH3 #### [address] MCH (RBC) [Entitic mass] 28.5 pg Normal 24.7-34.3 [facility] Comment on above: Performed By: #### C BC, MG, CMP, ESR, LIPASE, TSH3 #### [address] MCV (RBC) [Entitic vol] 86.9 fL Normal 80-100 [facility] Comment on above: Performed By: #### C BC, MG, CMP, ESR, LIPASE, TSH3 #### [address] Mean Corpuscular HGB Conc 32.8 g/dL Normal 32.0-35.0 [facility] Comment on above: Performed By: #### C BC, MG, CMP, ESR, LIPASE, TSH3 #### [address] Monocytes (Bld) [#/Vol] 0.5 10*3/uL Normal 0.0-0.8 [facility] Comment on above: Performed By: #### C BC, MG, CMP, ESR, LIPASE, TSH3 #### [address] Monocytes/100 WBC (Bld) 6.0 % Normal . [facility] Comment on above: Performed By: #### C BC, MG, CMP, ESR, LIPASE, TSH3 #### [address] Neutrophils (Bld) [#/Vol] 5.2 10*3/uL Normal 1.8-7.7 [facility] Comment on above: Performed By: #### C BC, MG, CMP, ESR, LIPASE, TSH3 #### [address] Neutrophils/100 WBC (Bld) 68.6 % Normal . [facility] Comment on above: Performed By: #### C BC, MG, CMP, ESR, LIPASE, TSH3 #### [address] Nucleated RBC/100 WBC (Bld) [Ratio] 0.1 % Normal 0-0.5 [facility] Comment on above: Performed By: #### C BC, MG, CMP, ESR, LIPASE, TSH3 #### [address] Platelet mean volume (Bld) [Entitic vol] 7.2 fL Normal 6.3-10.7 [facility] Comment on above: Performed By: #### C BC, MG, CMP, ESR, LIPASE, TSH3 #### [address] Platelets (Bld) [#/Vol] 432 10*3/uL Normal 150-450 [facility] Comment on above: Performed By: #### C BC, MG, CMP, ESR, LIPASE, TSH3 #### [address] RBC (Bld) [#/Vol] 3.08 10*6/uL Low 3.60-5.00 [facility] Comment on above: Performed By: #### C BC, MG, CMP, ESR, LIPASE, TSH3 #### [address] WBC (Bld) [#/Vol] 7.6 10*3/uL Normal 4.5-11.0 [facility] Comment on above: Performed By: #### C BC, MG, CMP, ESR, LIPASE, TSH3 #### [address] Creatinine and Glomerular fi ltration rate.predicted panel (S/P/Bld)Ordered By: Jessica Akhtar on 04-02-2022 Creatinine [Mass/Vol] 0.71 mg/dL 0.44-1.03 [facility] Eosinophils Auto (Bld) [#/Vo l]Ordered By: Jessica Akhtar on 04-02-2022 Eosinophils (Bld) [#/Vol] 0.1 10*3/uL 0.0-0.45 [facility] Eosinophils/100 WBC Auto (Bl d)Ordered By: Jessica Akhtar on 04-02-2022 Eosinophils/100 WBC (Bld) 1.3 % . [facility] Erythrocyte distribution wid th Auto (RBC) [Ratio]Ordered By: Jessica Akhtar on 04-02-2022 Erythrocyte distribution width (RBC) [Ratio] 15.0 % 11.9-15.3 [facility] Estimated glomerular filtrat ion rate (GFR) non- AmericanOrdered By: Jessica Akhtar on 04-02-2022 GFR/1.73 sq M.predicted among non-blacks MDRD (S/P/Bld) [Vol rate/Area] > 60 mL/Min [facility] Hematocrit Auto (Bld) [Volum e fraction]Ordered By: Jessica Akhtar on 04-02-2022 Hematocrit (Bld) [Volume fraction] 26.7 % 34.0-46.4 [facility] Laboratory - Hematology and Cell countsOrdered By: Jessica Akhtar on 04-02-2022 Nucleated RBC/100 WBC (Bld) [Ratio] 0.1 % 0-0.5 [facility] Lymphocytes Auto (Bld) [#/Vo l]Ordered By: Jessica Akhtar on 04-02-2022 Lymphocytes (Bld) [#/Vol] 1.8 10*3/uL 1.00-4.8 [facility] Lymphocytes/100 WBC Auto (Bl d)Ordered By: Jessica Akhtar on 04-02-2022 Lymphocytes/100 WBC (Bld) 23.8 % . [facility] MCH Auto (RBC) [Entitic mass ]Ordered By: Jessica Akhtar on 04-02-2022 MCH (RBC) [Entitic mass] 28.5 pg 24.7-34.3 [facility] MCHC Auto (RBC) [Mass/Vol]Or dered By: Jessica Akhtar on 04-02-2022 MCHC (RBC) [Mass/Vol] 32.8 g/dL 32.0-35.0 [facility] MCV Auto (RBC) [Entitic vol] Ordered By: Jessica Akhtar on 04-02-2022 MCV (RBC) [Entitic vol] 86.9 fL 80-100 [facility] Monocytes Auto (Bld) [#/Vol] Ordered By: Jessica Akhtar on 04-02-2022 Monocytes (Bld) [#/Vol] 0.5 10*3/uL 0.0-0.8 [facility] Monocytes/100 WBC Auto (Bld) Ordered By: Jessica Akhtar on 04-02-2022 Monocytes/100 WBC (Bld) 6.0 % . [facility] Neutrophils Auto (Bld) [#/Vo l]Ordered By: Jessica Akhtar on 04-02-2022 Neutrophils (Bld) [#/Vol] 5.2 10*3/uL 1.8-7.7 [facility] Neutrophils/100 WBC Auto (Bl d)Ordered By: Jessica Akhtar on 04-02-2022 Neutrophils/100 WBC (Bld) 68.6 % . [facility] No Panel InformationOrdered By: Jessica Akhtar on 04-02-2022 Estimated GFR () > 60 mL/Min [facility] Comment on above: GFR estimated refere nce range: According to KDOQI guidelines, <60 ml/min/1.73m2 is sufficient to diagnose a patient with chronic kidney disease. Pharmacy Creatinine Clearance (Chem 87.47 [facility] Platelet mean volume Auto (B ld) [Entitic vol]Ordered By: Jessica Akhtar on 04-02-2022 Platelet mean volume (Bld) [Entitic vol] 7.2 fL 6.3-10.7 [facility] Platelets Auto (Bld) [#/Vol] Ordered By: Jessica Akhtar on 04-02-2022 Platelets (Bld) [#/Vol] 432 10*3/uL 150-450 [facility] RBC Auto (Bld) [#/Vol]Ordere d By: Jessica Akhtar on 04-02-2022 RBC (Bld) [#/Vol] 3.08 10*6/uL 3.60-5.00 [facility] Serum or plasma anion gap de terminationOrdered By: Jessica Akhtar on 04-02-2022 Anion gap [Moles/Vol] 10.3 mmol/L 6.0-15.0 [facility] Serum or plasma calcium mariana urement (mass/volume)Ordered By: Jessica Akhtar on 04-02-2022 Calcium [Mass/Vol] 8.9 mg/dL 8.2-10.2 [facility] Serum or plasma chloride jaqui surement (moles/volume)Ordered By: Jessica Akhtar on 04-02-2022 Chloride [Moles/Vol] 107 mmol/L 95-114 [facility] Serum or plasma glucose mariana urement (mass/volume)Ordered By: Jessica Akhtar on 04-02-2022 Glucose [Mass/Vol] 91 mg/dL 70-100 [facility] Comment on above: ADA recommended refe rence rangeRandom Glucose Reference Range is dependent on time and content of last meal. Glucose of more than 200 mg/dL in a nonstressed, ambulatory subject supports the diagnosis of Diabetes Mellitus. Serum or plasma potassium me asurement (moles/volume)Ordered By: Jessica Akhtar on 04-02-2022 Potassium [Moles/Vol] 4.1 mmol/L 3.5-5.1 [facility] Serum or plasma sodium measu rement (moles/volume)Ordered By: Jessica Akhtar on 04-02-2022 Sodium [Moles/Vol] 137 mmol/L 136-146 [facility] Serum or plasma total carbon dioxide measurement (moles/volume)Ordered By: Jessica Akhtar on 04-02-2022 CO2 [Moles/Vol] 23.8 mmol/L 22.0-30.0 [facility] Serum or plasma urea nitroge n measurement (mass/volume)Ordered By: Jessica Akhtar on 04-02-2022 Urea nitrogen [Mass/Vol] 3 mg/dL 9-23 [facility] Urine culture routineOrdered By: Jessica Akhtar on 04-02-2022 Bacteria identified Cx Nom (U) Escherichia coli (ESBL) [facility] Albumin [Mass/volume] in Ser um or PlasmaOrdered By: Jessica Akhtar on 04-01-2022 Albumin [Mass/Vol] 2.8 g/dL 3.2-5.5 [facility] Complete Blood Count Auto Di ffon 04-01-2022 Basophils (Bld) [#/Vol] 0.0 10*3/uL Normal 0.0-0.2 [facility] Comment on above: Result Comment: PERF ORMED BY: [place] [address] PATHOLOGIST BALL ASSEMBLER RADHA GARCIA M.D. Performed By: #### C BC, MG, CMP, ESR, LIPASE, TSH3 #### [facility] [address] Basophils/100 WBC (Bld) 0.3 % Normal . [facility] Comment on above: Performed By: #### C BC, MG, CMP, ESR, LIPASE, TSH3 #### [facility] [address] Eosinophils (Bld) [#/Vol] 0.1 10*3/uL Normal 0.0-0.45 [facility] Comment on above: Performed By: #### C BC, MG, CMP, ESR, LIPASE, TSH3 #### [facility] [address] [place] [address] [place] Eosinophils/100 WBC (Bld) 1.3 % Normal . [facility] Comment on above: Performed By: #### C BC, MG, CMP, ESR, LIPASE, TSH3 #### [facility] [address] [place] [address] [place] Erythrocyte distribution width (RBC) [Ratio] 15.1 % Normal 11.9-15.3 [facility] Comment on above: Performed By: #### C BC, MG, CMP, ESR, LIPASE, TSH3 #### [address] Hematocrit (Bld) [Volume fraction] 23.6 % Low 34.0-46.4 [facility] Comment on above: Performed By: #### C BC, MG, CMP, ESR, LIPASE, TSH3 #### [address] Hemoglobin (Bld) [Mass/Vol] 7.8 g/dL Low 11.8-15.4 [facility] Comment on above: Performed By: #### C BC, MG, CMP, ESR, LIPASE, TSH3 #### [address] Lymphocytes (Bld) [#/Vol] 2.2 10*3/uL Normal 1.00-4.8 [facility] Comment on above: Performed By: #### C BC, MG, CMP, ESR, LIPASE, TSH3 #### [address] Lymphocytes/100 WBC (Bld) 32.6 % Normal . [facility] Comment on above: Performed By: #### C BC, MG, CMP, ESR, LIPASE, TSH3 #### [address] MCH (RBC) [Entitic mass] 29.0 pg Normal 24.7-34.3 [facility] Comment on above: Performed By: #### C BC, MG, CMP, ESR, LIPASE, TSH3 #### [address] MCV (RBC) [Entitic vol] 87.7 fL Normal 80-100 [facility] Comment on above: Performed By: #### C BC, MG, CMP, ESR, LIPASE, TSH3 #### [address] Mean Corpuscular HGB Conc 33.1 g/dL Normal 32.0-35.0 [facility] Comment on above: Performed By: #### C BC, MG, CMP, ESR, LIPASE, TSH3 #### [address] Monocytes (Bld) [#/Vol] 0.4 10*3/uL Normal 0.0-0.8 [facility] Comment on above: Performed By: #### C BC, MG, CMP, ESR, LIPASE, TSH3 #### [address] Monocytes/100 WBC (Bld) 6.1 % Normal . [facility] Comment on above: Performed By: #### C BC, MG, CMP, ESR, LIPASE, TSH3 #### [address] Neutrophils (Bld) [#/Vol] 4.0 10*3/uL Normal 1.8-7.7 [facility] Comment on above: Performed By: #### C BC, MG, CMP, ESR, LIPASE, TSH3 #### [address] Neutrophils/100 WBC (Bld) 59.7 % Normal . [facility] Comment on above: Performed By: #### C BC, MG, CMP, ESR, LIPASE, TSH3 #### [address] Nucleated RBC/100 WBC (Bld) [Ratio] 0.1 % Normal 0-0.5 [facility] Comment on above: Performed By: #### C BC, MG, CMP, ESR, LIPASE, TSH3 #### [address] Platelet mean volume (Bld) [Entitic vol] 7.4 fL Normal 6.3-10.7 [facility] Comment on above: Performed By: #### C BC, MG, CMP, ESR, LIPASE, TSH3 #### [address] Platelets (Bld) [#/Vol] 403 10*3/uL Normal 150-450 [facility] Comment on above: Performed By: #### C BC, MG, CMP, ESR, LIPASE, TSH3 #### [address] RBC (Bld) [#/Vol] 2.69 10*6/uL Low 3.60-5.00 [facility] Comment on above: Performed By: #### C BC, MG, CMP, ESR, LIPASE, TSH3 #### [address] WBC (Bld) [#/Vol] 6.6 10*3/uL Normal 4.5-11.0 [facility] Comment on above: Performed By: #### C BC, MG, CMP, ESR, LIPASE, TSH3 #### [address] Comprehensive Metabolic Pane eagle 04-01-2022 Albumin [Mass/Vol] 2.8 g/dL Low 3.2-5.5 [facility] Comment on above: Performed By: #### C BC, MG, CMP, ESR, LIPASE, TSH3 #### [address] Albumin/Globulin [Mass ratio] 1.4 {ratio} Normal [facility] Comment on above: Performed By: #### C BC, MG, CMP, ESR, LIPASE, TSH3 #### [address] ALP [Catalytic activity/Vol] 47 U/L Normal 32-92 [facility] Comment on above: Performed By: #### C BC, MG, CMP, ESR, LIPASE, TSH3 #### [address] ALT [Catalytic activity/Vol] 18 U/L Normal 10-60 [facility] Comment on above: Performed By: #### C BC, MG, CMP, ESR, LIPASE, TSH3 #### [address] Anion gap [Moles/Vol] 9.4 mmol/L Normal 6.0-15.0 [facility] Comment on above: Performed By: #### C BC, MG, CMP, ESR, LIPASE, TSH3 #### [facility] [address] AST [Catalytic activity/Vol] 18 U/L Normal 10-42 [facility] Comment on above: Performed By: #### C BC, MG, CMP, ESR, LIPASE, TSH3 #### [facility] [address] Bilirubin [Mass/Vol] 0.4 mg/dL Normal 0.3-1.2 [facility] Comment on above: Performed By: #### C BC, MG, CMP, ESR, LIPASE, TSH3 #### [facility] [address] Calcium [Mass/Vol] 8.3 mg/dL Normal 8.2-10.2 [facility] Comment on above: Performed By: #### C BC, MG, CMP, ESR, LIPASE, TSH3 #### [address] Chloride [Moles/Vol] 108 mmol/L Normal 95-114 [facility] Comment on above: Performed By: #### C BC, MG, CMP, ESR, LIPASE, TSH3 #### [address] CO2 [Moles/Vol] 24.6 mmol/L Normal 22.0-30.0 [facility] Comment on above: Performed By: #### C BC, MG, CMP, ESR, LIPASE, TSH3 #### [address] Creatinine [Mass/Vol] 0.74 mg/dL Normal 0.44-1.03 [facility] Comment on above: Performed By: #### C BC, MG, CMP, ESR, LIPASE, TSH3 #### [address] Creatinine Clr Calc Pharmacy 83.92 Normal [facility] Comment on above: Result Comment: PERF ORMED BY: [facility] [address] [place] [address] PATHOLOGIST BALL ASSEMBLER RADHA GARCIA M.D. Performed By: #### C BC, MG, CMP, ESR, LIPASE, TSH3 #### [facility] [address] Estimated GFR ( Letty > 60 [facility] Comment on above: Result Comment: GFR estimated reference range: According to KDOQI guidelines, <60 ml/min/1.73m2 is sufficient to diagnose a patient with chronic kidney disease. Performed By: #### C BC, MG, CMP, ESR, LIPASE, TSH3 #### [facility] [address] Estimated GFR (Non- Am > 60 [facility] Comment on above: Performed By: #### C BC, MG, CMP, ESR, LIPASE, TSH3 #### [address] Globulin (S) [Mass/Vol] 2.0 g/dL [facility] Comment on above: Performed By: #### C BC, MG, CMP, ESR, LIPASE, TSH3 #### [address] Glucose [Mass/Vol] 82 mg/dL Normal 70-100 [facility] Comment on above: Result Comment: [place] Glucose Reference Range is dependent on time and content of last meal. Glucose of more than 200 mg/dL in a nonstressed, ambulatory subject supports the diagnosis of Diabetes Mellitus. ADA recommended reference range Performed By: #### C BC, MG, CMP, ESR, LIPASE, TSH3 #### [address] Potassium [Moles/Vol] 4.0 mmol/L Normal 3.5-5.1 [facility] Comment on above: Performed By: #### C BC, MG, CMP, ESR, LIPASE, TSH3 #### [facility] [address] Protein [Mass/Vol] 4.8 g/dL Low 6.1-7.9 [facility] Comment on above: Performed By: #### C BC, MG, CMP, ESR, LIPASE, TSH3 #### [facility] [address] Sodium [Moles/Vol] 138 mmol/L Normal 136-146 [facility] Comment on above: Performed By: #### C BC, MG, CMP, ESR, LIPASE, TSH3 #### [facility] [address] Urea nitrogen [Mass/Vol] 2 mg/dL Low 9-23 [facility] Comment on above: Performed By: #### C BC, MG, CMP, ESR, LIPASE, TSH3 #### [facility] [address] Globulin Calc (S) [Mass/Vol] Ordered By: Jessica Akhtar on 04-01-2022 Globulin (S) [Mass/Vol] 2.0 g/dL [facility] Hemoglobin and Hematocriton 04-01-2022 Hematocrit (Bld) [Volume fraction] 26.9 % Low 34.0-46.4 [facility] Comment on above: Result Comment: PERF ORMED BY: [place] [address] PATHOLOGIST BALL ASSEMBLER RADHA GARCIA M.D. Performed By: #### C BC, MG, CMP, ESR, LIPASE, TSH3 #### [address] Hemoglobin (Bld) [Mass/Vol] 8.9 g/dL Low 11.8-15.4 [facility] Comment on above: Performed By: #### C BC, MG, CMP, ESR, LIPASE, TSH3 #### [facility] [address] Hematocrit (Bld) [Volume fraction] 21.7 % Low 34.0-46.4 [facility] Comment on above: Result Comment: PERF ORMED BY: [place] [address] PATHOLOGIST BALL ASSEMBLER RADHA GARCIA M.D. Performed By: #### L IPASE, PT, CBC, PTT, CMP #### [facility] [address] [place] [address] [place] Hemoglobin (Bld) [Mass/Vol] 7.2 g/dL Low 11.8-15.4 [facility] Comment on above: Performed By: #### L IPASE, PT, CBC, PTT, CMP #### [facility] [address] [place] [id number] [place] Protein [Mass/volume] in Ser um or PlasmaOrdered By: Jessica Akhtar on 04-01-2022 Protein [Mass/Vol] 4.8 g/dL 6.1-7.9 [facility] Serum or plasma alanine carlos otransferase measurement without P-5'-P (enzymatic activiOrdered By: Jessica Akhtar on 04-01-2022 ALT No additional P-5'-P [Catalytic activity/Vol] 18 U/L 10-60 [facility] Serum or plasma albumin/glob ulin mass ratioOrdered By: Jessica Akhtar on 04-01-2022 Albumin/Globulin [Mass ratio] 1.4 {ratio} [facility] Serum or plasma alkaline belkys sphatase measurement (enzymatic activity/volume)Ordered By: Jessica Akhtar on 04-01-2022 ALP [Catalytic activity/Vol] 47 U/L 32-92 [facility] Serum or plasma aspartate am inotransferase measurement (enzymatic activity/volume)Ordered By: Jessica Akhtar on 04-01-2022 AST [Catalytic activity/Vol] 18 U/L 10-42 [facility] Serum or plasma total biliru bin measurement (mass/volume)Ordered By: Jessica Akhtar on 04-01-2022 Bilirubin [Mass/Vol] 0.4 mg/dL 0.3-1.2 [facility] Activated partial thrombopla stin time (aPTT) in platelet poor plasma by coagulation aOrdered By: Jaime Rodriguez on 03-31-2022 aPTT Coag (PPP) [Time] 24.5 s 25.1-36.5 [facility] Albumin [Mass/volume] in Ser um or PlasmaOrdered By: Jaime Rodriguez on 03-31-2022 Albumin [Mass/Vol] 3.2 g/dL 3.2-5.5 [facility] Automated erythrocytes count in urine sediment (number/area)Ordered By: Jessica Akhtar on 03-31-2022 RBC Auto (Urine sed) [#/Area] None seen [HPF] 0-4 [facility] Automated leukocytes count i n urine sediment (number/area)Ordered By: Jessica Akhtar on 03-31-2022 WBC Auto (Urine sed) [#/Area] 10-19 [HPF] 0-4 [facility] Basophils Auto (Bld) [#/Vol] Ordered By: Jaime Rodriguez on 03-31-2022 Basophils (Bld) [#/Vol] 0.1 10*3/uL 0.0-0.2 [facility] Basophils/100 WBC Auto (Bld) Ordered By: Jaime Rodriguez on 03-31-2022 Basophils/100 WBC (Bld) 0.5 % . [facility] Bilirubin Test strip Ql (U)O rdered By: Jessica Akhtar on 03-31-2022 Bilirubin Ql (U) Negative Negative [facility] Blood hemoglobin measurement (mass/volume)Ordered By: Jaime Rodriguez on 03-31-2022 Hemoglobin (Bld) [Mass/Vol] 6.8 g/dL 11.8-15.4 [facility] Blood leukocytes automated c ount (number/volume)Ordered By: Jaime Rodriguez on 03-31-2022 WBC (Bld) [#/Vol] 11.7 10*3/uL 4.5-11.0 [facility] COVID-19 Antigenon 2 COVID-19 Antigen Healthcare Worker?: N Reference Range: Negative Negative results, from patients with symptom onset beyond five days, should be treated as presumptive and confirmation with a molecular assay, if necessary, for patient management, may be performed. Negative results do not rule out COVID-19 and should not be used as the sole basis for treatment or patient management decisions, including infection control decisions. Negative results should be considered in the context of a patient's recent exposures, history and the presence of clinical signs and symptoms consistent with COVID-19. The [place] SARS Antigen DISHA does not differentiate between SARS-CoV and SARS-CoV-2. This test was developed and its performance characteristic determined by [employer] and validated at [facility]. This test has not been FDA cleared or approved. This test has been authorized by FDA under an Emergency Use Authorization (EUA). This test has been validated in accordance with the FDA's Guidance Document (Policy for Diagnostics Testing in Laboratories Certified to Perform High Complexity Testing under CLIA prior to Emergency Use Authorization for Coronavirus Disease-2019 during the Public Health Emergency) issued on September 27, 2019. This test is only authorized for the duration of time the declaration that circumstances exist justifying the authorization of the emergency use of in vitro diagnostic tests for detection of SARS-CoV-2 virus and/or diagnosis of COVID-19 infection under section 564(b)(1) of the Act, 21 U.S.C. 360bbb-3(b)(1), unless the authorization is terminated or revoked sooner. SARS-CoV+SARS-CoV-2 (COVID-19) Ag [Presence] in Respiratory specimen by Rapid immunoassay Negative for SARS Antigen by DISHA PERFORMED BY: [place] [address] PATHOLOGIST BALL ASSEMBLER RADHA GARCIA M.D. Normal [facility] Comment on above: Performed By: #### C BC, MG, CMP, ESR, LIPASE, TSH3 #### [address] COVID-19 [facility] 03-31-2022 SARS-CoV-2 (COVID-19) RNA SARABJIT+probe Ql (Unsp spec) Negative Normal Negative [facility] Comment on above: Order Comment: Healt hcare Worker?: N Result Comment: Testing for SARS-CoV-2 by RT-PCR This test was developed and its performance characteristics determined by [employer] ([employer]) and validated at the [facility]. This test has not been FDA cleared or approved. This test has been authorized by FDA under an Emergency Use Authorization (EUA). This test has been validated in accordance with the FDA's Guidance Document (Policy for Diagnostics Testing in Laboratories Certified to Perform High Complexity Testing under CLIA prior to Emergency Use Authorization for Coronavirus Disease-2019 during the Public Health Emergency) issued on September 27, 2019. This test is only authorized for the duration of time the declaration that circumstances exist justifying the authorization of the emergency use of in vitro diagnostic tests for detection of SARS-CoV-2 virus and/or diagnosis of COVID-19 infection under section 564(b)(1) of the Act, 21 U.S.C. 360bbb-3(b)(1), unless the authorization is terminated or revoked sooner. PERFORMED BY: [facility] [address] [place] [address] PATHOLOGIST BALL ASSEMBLER RADHA GARCIA M.D. Performed By: #### C BC, MG, CMP, ESR, LIPASE, TSH3 #### [address] COVID-19 Positive/NegativeOr dered By: Jaime Rodriguez on 03-31-2022 SARS-CoV-2 (COVID-19) N gene SARABJIT+probe Ql (Resp) Negative Negative [facility] Comment on above: Testing for SARS-CoV -2 by RT-PCRThis test was developed and its performance characteristics determined by [employer] ([employer]) and validated at the [facility]. This test has not been FDA cleared or approved. This test has been authorized by FDA under an Emergency Use Authorization (EUA). This test has been validated in accordance with the FDA's Guidance Document (Policy for Diagnostics Testing in Laboratories Certified to Perform High Complexity Testing under CLIA prior to Emergency Use Authorization for Coronavirus Disease-2019 during the Public Health Emergency) issued on September 27, 2019. This test is only authorized for the duration of time the declaration that circumstances exist justifying the authorization of the emergency use of in vitro diagnostic tests for detection of SARS-CoV-2 virus and/or diagnosis of COVID-19 infection under section 564(b)(1) of the Act, 21 U.S.C. 360bbb-3(b)(1), unless the authorization is terminated or revoked sooner. COVID-19 SOFIAOrdered By: Pascual Rodriguez on 03-31-2022 SARS-CoV+SARS-CoV-2 (COVID-19) Ag IA.rapid Ql (Resp) Negative Negative [facility] Comment on above: This is a duplicate [place] SARS Antigen (DISHA) result to be used for statistical tracking purpose only. CT biopsyOrdered By: Jessica stewart on 03-31-2022 Transferrin [Mass/Vol] 313 mg/dL 180-380 Fi [facility] Clostridioides difficile tox in B tcdB gene [Presence] in Stool by SARABJIT with probe deteOrdered By: Jaime Rodriguez on 03-31-2022 C. difficile toxin B tcdB gene SARABJIT+probe Ql (Stl) Positive Negative [facility] Comment on above: Critical valueresult calledat 1620 on 03/31/22Testing performed by RT-PCR Clostridium Difficileon Clostridium Difficile Positive Normal Negative [facility] Comment on above: Order Comment: > or = to 3 loose/watery stools in the last 24 HRS? Y Is patient on promotility agents or tube feeding? N Result Comment: Crit ical value result called at 1620 on 03/31/22 Testing performed by RT-PCR PERFORMED BY: [place] [address] PATHOLOGIST BALL ASSEMBLER RADHA GARCIA M.D. Performed By: #### C BC, MG, CMP, ESR, LIPASE, TSH3 #### [address] Color Auto (U)Ordered By: Alfonso Akhtar on 03-31-2022 Color (U) Yellow Yellow [facility] Complete Blood Count Auto Di ffon 03-31-2022 Basophils (Bld) [#/Vol] 0.1 10*3/uL Normal 0.0-0.2 [facility] Comment on above: Performed By: #### C BC, MG, CMP, ESR, LIPASE, TSH3 #### [facility] [address] [place] [address] Basophils/100 WBC (Bld) 0.5 % Normal . [facility] Comment on above: Performed By: #### C BC, MG, CMP, ESR, LIPASE, TSH3 #### [address] Eosinophils (Bld) [#/Vol] 0.0 10*3/uL Normal 0.0-0.45 [facility] Comment on above: Performed By: #### C BC, MG, CMP, ESR, LIPASE, TSH3 #### [address] Eosinophils/100 WBC (Bld) 0.3 % Normal . [facility] Comment on above: Performed By: #### C BC, MG, CMP, ESR, LIPASE, TSH3 #### [address] Erythrocyte distribution width (RBC) [Ratio] 14.8 % Normal 11.9-15.3 [facility] Comment on above: Performed By: #### C BC, MG, CMP, ESR, LIPASE, TSH3 #### [address] Hematocrit (Bld) [Volume fraction] 21.1 % Low 34.0-46.4 [facility] Comment on above: Performed By: #### C BC, MG, CMP, ESR, LIPASE, TSH3 #### [address] Hemoglobin (Bld) [Mass/Vol] 6.8 g/dL Low 11.8-15.4 [facility] Comment on above: Performed By: #### C BC, MG, CMP, ESR, LIPASE, TSH3 #### [address] Lymphocytes (Bld) [#/Vol] 2.6 10*3/uL Normal 1.00-4.8 [facility] Comment on above: Performed By: #### C BC, MG, CMP, ESR, LIPASE, TSH3 #### [address] Lymphocytes/100 WBC (Bld) 22.6 % Normal . [facility] Comment on above: Performed By: #### C BC, MG, CMP, ESR, LIPASE, TSH3 #### [address] [address] [place] MCH (RBC) [Entitic mass] 28.7 pg Normal 24.7-34.3 [facility] Comment on above: Performed By: #### C BC, MG, CMP, ESR, LIPASE, TSH3 #### [address] MCV (RBC) [Entitic vol] 88.7 fL Normal 80-100 [facility] Comment on above: Performed By: #### C BC, MG, CMP, ESR, LIPASE, TSH3 #### [address] Mean Corpuscular HGB Conc 32.3 g/dL Normal 32.0-35.0 [facility] Comment on above: Performed By: #### C BC, MG, CMP, ESR, LIPASE, TSH3 #### [address] Monocytes (Bld) [#/Vol] 0.7 10*3/uL Normal 0.0-0.8 [facility] Comment on above: Performed By: #### C BC, MG, CMP, ESR, LIPASE, TSH3 #### [address] Monocytes/100 WBC (Bld) 5.6 % Normal . [facility] Comment on above: Performed By: #### C BC, MG, CMP, ESR, LIPASE, TSH3 #### [address] Neutrophils (Bld) [#/Vol] 8.3 10*3/uL High 1.8-7.7 [facility] Comment on above: Performed By: #### C BC, MG, CMP, ESR, LIPASE, TSH3 #### [address] Neutrophils/100 WBC (Bld) 71.0 % Normal . [facility] Comment on above: Performed By: #### C BC, MG, CMP, ESR, LIPASE, TSH3 #### [address] Nucleated RBC/100 WBC (Bld) [Ratio] 0.1 % Normal 0-0.5 [facility] Comment on above: Performed By: #### C BC, MG, CMP, ESR, LIPASE, TSH3 #### [address] Platelet mean volume (Bld) [Entitic vol] 7.4 fL Normal 6.3-10.7 [facility] Comment on above: Performed By: #### C BC, MG, CMP, ESR, LIPASE, TSH3 #### [address] Platelets (Bld) [#/Vol] 422 10*3/uL Normal 150-450 [facility] Comment on above: Performed By: #### C BC, MG, CMP, ESR, LIPASE, TSH3 #### [address] RBC (Bld) [#/Vol] 2.38 10*6/uL Low 3.60-5.00 [facility] Comment on above: Performed By: #### C BC, MG, CMP, ESR, LIPASE, TSH3 #### [address] WBC (Bld) [#/Vol] 11.7 10*3/uL High 4.5-11.0 [facility] Comment on above: Performed By: #### C BC, MG, CMP, ESR, LIPASE, TSH3 #### [address] Comprehensive Metabolic Pane eagle 03-31-2022 Albumin [Mass/Vol] 3.2 g/dL Normal 3.2-5.5 [facility] Comment on above: Performed By: #### C BC, MG, CMP, ESR, LIPASE, TSH3 #### [address] Albumin/Globulin [Mass ratio] 1.3 {ratio} Normal [facility] Comment on above: Performed By: #### C BC, MG, CMP, ESR, LIPASE, TSH3 #### [facility] [address] ALP [Catalytic activity/Vol] 50 U/L Normal 32-92 [facility] Comment on above: Performed By: #### C BC, MG, CMP, ESR, LIPASE, TSH3 #### [facility] [address] ALT [Catalytic activity/Vol] 16 U/L Normal 10-60 [facility] Comment on above: Performed By: #### C BC, MG, CMP, ESR, LIPASE, TSH3 #### [facility] [address] Anion gap [Moles/Vol] 12.0 mmol/L Normal 6.0-15.0 [facility] Comment on above: Performed By: #### C BC, MG, CMP, ESR, LIPASE, TSH3 #### [address] AST [Catalytic activity/Vol] 13 U/L Normal 10-42 [facility] Comment on above: Performed By: #### C BC, MG, CMP, ESR, LIPASE, TSH3 #### [address] Bilirubin [Mass/Vol] 0.3 mg/dL Normal 0.3-1.2 [facility] Comment on above: Performed By: #### C BC, MG, CMP, ESR, LIPASE, TSH3 #### [facility] [address] [place] [address] Calcium [Mass/Vol] 8.9 mg/dL Normal 8.2-10.2 [facility] Comment on above: Performed By: #### C BC, MG, CMP, ESR, LIPASE, TSH3 #### [facility] [address] [place] [address] [place] Chloride [Moles/Vol] 103 mmol/L Normal 95-114 [facility] Comment on above: Performed By: #### C BC, MG, CMP, ESR, LIPASE, TSH3 #### [place] [address] [place] CO2 [Moles/Vol] 24.1 mmol/L Normal 22.0-30.0 [facility] Comment on above: Performed By: #### C BC, MG, CMP, ESR, LIPASE, TSH3 #### [facility] [address] Creatinine [Mass/Vol] 0.75 mg/dL Normal 0.44-1.03 [facility] Comment on above: Performed By: #### C BC, MG, CMP, ESR, LIPASE, TSH3 #### [address] Creatinine Clr Calc Pharmacy 82.80 [facility] Comment on above: Performed By: #### C BC, MG, CMP, ESR, LIPASE, TSH3 #### [address] Estimated GFR ( Letty > 60 [facility] Comment on above: Result Comment: GFR estimated reference range: According to KDOQI guidelines, <60 ml/min/1.73m2 is sufficient to diagnose a patient with chronic kidney disease. Performed By: #### C BC, MG, CMP, ESR, LIPASE, TSH3 #### [address] Estimated GFR (Non- Am > 60 [facility] Comment on above: Performed By: #### C BC, MG, CMP, ESR, LIPASE, TSH3 #### [address] Globulin (S) [Mass/Vol] 2.5 g/dL [facility] Comment on above: Performed By: #### C BC, MG, CMP, ESR, LIPASE, TSH3 #### [address] Glucose [Mass/Vol] 90 mg/dL Normal 70-100 [facility] Comment on above: Result Comment: [place] om Glucose Reference Range is dependent on time and content of last meal. Glucose of more than 200 mg/dL in a nonstressed, ambulatory subject supports the diagnosis of Diabetes Mellitus. ADA recommended reference range Performed By: #### C BC, MG, CMP, ESR, LIPASE, TSH3 #### [facility] [address] Potassium [Moles/Vol] 3.1 mmol/L Low 3.5-5.1 [facility] Comment on above: Performed By: #### C BC, MG, CMP, ESR, LIPASE, TSH3 #### [facility] [address] Protein [Mass/Vol] 5.7 g/dL Low 6.1-7.9 [facility] Comment on above: Performed By: #### C BC, MG, CMP, ESR, LIPASE, TSH3 #### [facility] [address] Sodium [Moles/Vol] 136 mmol/L Normal 136-146 [facility] Comment on above: Performed By: #### C BC, MG, CMP, ESR, LIPASE, TSH3 #### [address] Urea nitrogen [Mass/Vol] 6 mg/dL Low 9-23 [facility] Comment on above: Performed By: #### C BC, MG, CMP, ESR, LIPASE, TSH3 #### [address] Creatinine and Glomerular fi ltration rate.predicted panel (S/P/Bld)Ordered By: Jaime Rodriguez on 03-31-2022 Creatinine [Mass/Vol] 0.75 mg/dL 0.44-1.03 [facility] Dipstick and Microscopicon 1 Appearance (U) Clear Normal Clear [facility] Comment on above: Order Comment: Name Collection Type:: Clean-Voided Midstream Performed By: #### L IPASE, PT, CBC, PTT, CMP #### [address] Bacteria,Urine 3+ High None Seen [facility] Comment on above: Order Comment: Name Collection Type:: Clean-Voided Midstream Performed By: #### L IPASE, PT, CBC, PTT, CMP #### [facility] [address] [place] [address] [place] Bilirubin,Urine Negative Normal Negative [facility] Comment on above: Order Comment: Name Collection Type:: Clean-Voided Midstream Performed By: #### L IPASE, PT, CBC, PTT, CMP #### [place] [address] [place] Color (U) Yellow Normal Yellow [facility] Comment on above: Order Comment: Name Collection Type:: Clean-Voided Midstream Performed By: #### L IPASE, PT, CBC, PTT, CMP #### [place] [address] [place] Glucose Ql (U) Normal Normal Normal [facility] Comment on above: Order Comment: Name Collection Type:: Clean-Voided Midstream Performed By: #### L IPASE, PT, CBC, PTT, CMP #### [place] [address] [place] Hyaline Casts,Urine 0-8 Normal 0-8 [facility] Comment on above: Order Comment: Name Collection Type:: Clean-Voided Midstream Result Comment: PERF ORMED BY: [place] [address] PATHOLOGIST BALL ASSEMBLER RADHA GARCIA M.D. Performed By: #### L IPASE, PT, CBC, PTT, CMP #### [address] Ketones Ql (U) Negative Normal Negative [facility] Comment on above: Order Comment: Name Collection Type:: Clean-Voided Midstream Performed By: #### L IPASE, PT, CBC, PTT, CMP #### [place] [address] [place] Leukocyte esterase Test strip Ql (U) 3+ High Negative [facility] Comment on above: Order Comment: Name Collection Type:: Clean-Voided Midstream Performed By: #### L IPASE, PT, CBC, PTT, CMP #### [place] [address] [place] Nitrite,Urine Positive High Negative [facility] Comment on above: Order Comment: Name Collection Type:: Clean-Voided Midstream Performed By: #### L IPASE, PT, CBC, PTT, CMP #### [address] Occult Blood,Urine Negative Normal Negative [facility] Comment on above: Order Comment: Name Collection Type:: Clean-Voided Midstream Result Comment: PERF ORMED BY: [place] [address] PATHOLOGIST BALL ASSEMBLER RADHA GARCIA M.D. Performed By: #### L IPASE, PT, CBC, PTT, CMP #### [address] pH (U) 5.5 [pH] Normal 5.0-9.0 [facility] Comment on above: Order Comment: Name Collection Type:: Clean-Voided Midstream Performed By: #### L IPASE, PT, CBC, PTT, CMP #### [address] Protein,Urine Negative Normal Negative [facility] Comment on above: Order Comment: Name Collection Type:: Clean-Voided Midstream Performed By: #### L IPASE, PT, CBC, PTT, CMP #### [address] RBC,Urine None Seen Normal 0-4 [facility] Comment on above: Order Comment: Name Collection Type:: Clean-Voided Midstream Performed By: #### L IPASE, PT, CBC, PTT, CMP #### [address] Specificy [place],Urine 1.005 Normal 1.001-1.03 0 [facility] Comment on above: Order Comment: Name Collection Type:: Clean-Voided Midstream Performed By: #### L IPASE, PT, CBC, PTT, CMP #### [address] Squamous Epithelial Cell,Urine 5-9 High 0-2 [facility] Comment on above: Order Comment: Name Collection Type:: Clean-Voided Midstream Performed By: #### L IPASE, PT, CBC, PTT, CMP #### [facility] [address] Urobilinogen,Urine Normal Normal Normal [facility] Comment on above: Order Comment: Name Collection Type:: Clean-Voided Midstream Performed By: #### L IPASE, PT, CBC, PTT, CMP #### [facility] [address] [place] [id number] [facility] WBC,Urine 10-19 High 0-4 [facility] Comment on above: Order Comment: Name Collection Type:: Clean-Voided Midstream Performed By: #### L IPASE, PT, CBC, PTT, CMP #### [facility] [address] ECG 12 lead ECGon 03-31-2022 ECG 12 lead ECG [facility] Main [place] [address] [place] [address] Electrocardiograph Report Signed Patient: Raquel Correa MR#: [id number] : 1985 Acct:[id number] Age/Sex: 37 / F ADM Date: 03/31/22 Loc: Room: [address] [place] [address] Type: DIS INOo Attending Dr: Jessica Akhtar MD Ordering Provider: Jaime Rodriguez DO Date of Service: 03/31/2211/15/1116 ECG/ECG 12 lead ECG: Dizziness Copies to: Test Reason : Blood Pressure : 129/060 mmHG Vent. Rate : 085 BPM Atrial Rate : 085 BPM P-R Int : 142 ms QRS Dur : 082 ms QT Int : 342 ms P-R-T Axes : 080 078 016 degrees QTc Int : 406 ms Normal sinus rhythm T wave abnormality, consider inferior ischemia T wave abnormality, consider anterior ischemia Abnormal ECG When compared with ECG of 24-OCT-2021 21:12, Inverted T waves have replaced nonspecific T wave abnormality in Inferior leads Confirmed by Jaime Rodriguez DO ([id number]) on 03/31/2022 12:35:27 PM Referred By: Electronically Signed By:Jaime Rodriguez DO Transcribed By: MUS Signed By Jaime Rodriguez DO 03/31 1235 Normal [facility] Eosinophils Auto (Bld) [#/Vo l]Ordered By: Jaime Rodriguez on 03-31-2022 Eosinophils (Bld) [#/Vol] 0.0 10*3/uL 0.0-0.45 [facility] Eosinophils/100 WBC Auto (Bl d)Ordered By: Jaime Rodriguez on 03-31-2022 Eosinophils/100 WBC (Bld) 0.3 % . [facility] Erythrocyte Sedimentation Ra josey 03-31-2022 ESR (Bld) [Velocity] 8 mm/h Normal 0-19 [facility] Comment on above: Result Comment: PERF ORMED BY: [facility] [address] [place] [address] PATHOLOGIST BALL ASSEMBLER RADHA GARCIA M.D. Performed By: #### C BC, MG, CMP, ESR, LIPASE, TSH3 #### [facility] [address] Erythrocyte distribution wid th Auto (RBC) [Ratio]Ordered By: Jaime Rodriguez on 03-31-2022 Erythrocyte distribution width (RBC) [Ratio] 14.8 % 11.9-15.3 [facility] Erythrocyte sedimentation ra te by Photometric methodOrdered By: Jaime Rodriguez on 03-31-2022 ESR Photometric method (Bld) [Velocity] 8 mm/hr 0-19 [facility] Estimated glomerular filtrat ion rate (GFR) non- AmericanOrdered By: Jaime Rodriguez on 03-31-2022 GFR/1.73 sq M.predicted among non-blacks MDRD (S/P/Bld) [Vol rate/Area] > 60 mL/Min [facility] Ferritinon 03-31-2022 Ferritin [Mass/Vol] 3.9 ng/mL Low 11-306.8 [facility] Comment on above: Order Comment: Comme nt add Performed By: #### L IPASE, PT, CBC, PTT, CMP #### [facility] [address] [place] [id number] [facility] Ferritin [Mass/volume] in Se rum or PlasmaOrdered By: Jessica Akhtar on 03-31-2022 Ferritin [Mass/Vol] 3.9 ng/mL 11-306.8 [facility] Folate [Mass/volume] in Seru m or PlasmaOrdered By: Jessica Akhtar on 03-31-2022 Folate [Mass/Vol] 21.7 ng/mL >5.9 [facility] Comment on above: Folate reference ran ge: >5.9 ng/mlThe WHO technical consultation on folate and vitamin [id number] has determined that folate concentrations lessthan 4 ng/ml are considered deficient. Globulin Calc (S) [Mass/Vol] Ordered By: Jaime Rodriguez on 03-31-2022 Globulin (S) [Mass/Vol] 2.5 g/dL [facility] Hematocrit Auto (Bld) [Volum e fraction]Ordered By: Jaime Rodriguez on 03-31-2022 Hematocrit (Bld) [Volume fraction] 21.1 % 34.0-46.4 [facility] Hemoglobin and Hematocriton 03-31-2022 Hematocrit (Bld) [Volume fraction] 24.1 % Low 34.0-46.4 [facility] Comment on above: Result Comment: PERF ORMED BY: [facility] [address] [place] [address] PATHOLOGIST BALL ASSEMBLER RADHA GARCIA M.D. Performed By: #### C BC, MG, CMP, ESR, LIPASE, TSH3 #### [facility] [address] Hemoglobin (Bld) [Mass/Vol] 8.0 g/dL Low 11.8-15.4 [facility] Comment on above: Performed By: #### C BC, MG, CMP, ESR, LIPASE, TSH3 #### [facility] [address] Iron [Mass/volume] in Serum or PlasmaOrdered By: Jessica Akhtar on 03-31-2022 Iron [Mass/Vol] 9 ug/dL 40-150 [facility] Iron and TIBC Profileon 100 % Iron Saturation 2.0 % Low 20-50 [facility] Comment on above: Order Comment: Comme nt add Performed By: #### L IPASE, PT, CBC, PTT, CMP #### [facility] [address] [place] [address] [place] Iron [Mass/Vol] 9 ug/dL Low 40-150 [facility] Comment on above: Order Comment: Comme nt add Performed By: #### L IPASE, PT, CBC, PTT, CMP #### [facility] [address] Total Iron Binding Capacity 438 ug/dL Normal 255-450 [facility] Comment on above: Order Comment: Comme nt add Performed By: #### L IPASE, PT, CBC, PTT, CMP #### [facility] [address] [place] [address] [place] Transferrin [Mass/Vol] 313 mg/dL Normal 180-380 [facility] Comment on above: Order Comment: Comme nt add Performed By: #### L IPASE, PT, CBC, PTT, CMP #### [address] Iron binding capacity [Mass/ volume] in Serum or PlasmaOrdered By: Jessica Akhtar on 03-31-2022 Iron binding capacity [Mass/Vol] 438 ug/dL 255-450 [facility] Iron saturation [Mass Fracti on] in Serum or PlasmaOrdered By: Jessica Akhtar on 03-31-2022 Iron saturation [Mass fraction] 2.0 % 20-50 [facility] Ketones Auto test strip (U) [Mass/Vol]Ordered By: Jessica Akhtar on 03-31-2022 Ketones (U) [Mass/Vol] Negative Negative [facility] Laboratory - Chemistry and C hemistry - challengeOrdered By: Jessica Akhtar on 03-31-2022 Cobalamin (Vitamin B12) [Mass/Vol] 111 pg/mL 180-914 [facility] Magnesium [Mass/Vol] 1.6 mg/dL 1.6-2.6 [facility] Laboratory - Chemistry and C hemistry - challengeOrdered By: Jaime Rodriguez on 03-31-2022 Lipase [Catalytic activity/Vol] 31.0 U/L [facility] Magnesium [Mass/Vol] 1.7 mg/dL 1.6-2.6 [facility] Laboratory - CoagulationOrde red By: Jaime Rodriguez on 03-31-2022 PT Coag (PPP) [Time] 11.3 s 9.0-12.9 [facility] - Hematology and Cell countsOrdered By: Jaime Rdoriguez on 03-31-2022 Nucleated RBC/100 WBC (Bld) [Ratio] 0.1 % 0-0.5 [facility] - UrinalysisOrder ed By: Jessica Akhtar on 03-31-2022 Hyaline casts LM Ql (Urine sed) 0-8 [LPF] 0-8 [facility] LeukoReduced RBCon 2 LeukoReduced RBC TRANSFUSED 03/31/22 1615 Normal [facility] Lipaseon 03-31-2022 Lipase [Catalytic activity/Vol] 31.0 U/L Normal [facility] Comment on above: Performed By: #### C BC, MG, CMP, ESR, LIPASE, TSH3 #### [facility] [address] Lymphocytes Auto (Bld) [#/Vo l]Ordered By: Jaime Rodriguez on 03-31-2022 Lymphocytes (Bld) [#/Vol] 2.6 10*3/uL 1.00-4.8 [facility] Lymphocytes/100 WBC Auto (Bl d)Ordered By: Jaime Rodriguez on 03-31-2022 Lymphocytes/100 WBC (Bld) 22.6 % . [facility] MCH Auto (RBC) [Entitic mass ]Ordered By: Jaime Rodriguez on 03-31-2022 MCH (RBC) [Entitic mass] 28.7 pg 24.7-34.3 [facility] MCHC Auto (RBC) [Mass/Vol]Or dered By: Jaime Rodriguez on 03-31-2022 MCHC (RBC) [Mass/Vol] 32.3 g/dL 32.0-35.0 [facility] MCV Auto (RBC) [Entitic vol] Ordered By: Jaime Rodriguez on 03-31-2022 MCV (RBC) [Entitic vol] 88.7 fL 80-100 [facility] Magnesiumon 03-31-2022 Magnesium [Mass/Vol] 1.7 mg/dL Normal 1.6-2.6 [facility] Comment on above: Performed By: #### C BC, MG, CMP, ESR, LIPASE, TSH3 #### [facility] [address] Magnesium [Mass/Vol] 1.6 mg/dL Normal 1.6-2.6 [facility] Comment on above: Order Comment: Comme nt add Performed By: #### L IPASE, PT, CBC, PTT, CMP #### [facility] [address] Monocytes Auto (Bld) [#/Vol] Ordered By: Jaime Rodriguez on 03-31-2022 Monocytes (Bld) [#/Vol] 0.7 10*3/uL 0.0-0.8 [facility] Monocytes/100 WBC Auto (Bld) Ordered By: Jaime Rodriguez on 03-31-2022 Monocytes/100 WBC (Bld) 5.6 % . [facility] Neutrophils Auto (Bld) [#/Vo l]Ordered By: Jaime Rodriguez on 03-31-2022 Neutrophils (Bld) [#/Vol] 8.3 10*3/uL 1.8-7.7 [facility] Neutrophils/100 WBC Auto (Bl d)Ordered By: Jaime Rodriguez on 03-31-2022 Neutrophils/100 WBC (Bld) 71.0 % . [facility] Nitrite Test strip Ql (U)Ord ered By: Jessica Akhtar on 03-31-2022 Nitrite Ql (U) Positive Negative [facility] No Panel InformationOrdered By: Jaime Rodriguez on 03-31-2022 Estimated GFR () > 60 mL/Min [facility] Comment on above: GFR estimated refere nce range: According to KDOQI guidelines, <60 ml/min/1.73m2 is sufficient to diagnose a patient with chronic kidney disease. Pharmacy Creatinine Clearance (Chem 82.80 [facility] SARS Antigen (LFIA) [facility] Partial Thromboplastin Timeo n 03-31-2022 aPTT Coag (Bld) [Time] 24.5 s Low 25.1-36.5 Fi [facility] Comment on above: Result Comment: PERF ORMED BY: [facility] [address] [place] [address] PATHOLOGIST BALL ASSEMBLER RADHA GARCIA M.D. Performed By: #### C BC, MG, CMP, ESR, LIPASE, TSH3 #### [facility] [address] Platelet mean volume Auto (B ld) [Entitic vol]Ordered By: Jaime Rodriguez on 03-31-2022 Platelet mean volume (Bld) [Entitic vol] 7.4 fL 6.3-10.7 [facility] Platelet poor plasma interna tional normalized ratio (INR) by coagulation assay (relatOrdered By: Jaime Rodriguez on 03-31-2022 INR Coag (PPP) [Relative time] 1.0 {INR} [facility] Comment on above: INR Therapeutic Rang e A) Pre- and Peroperative OAT started two weeks before surgery. NOT HIP SURGERY: 1.5 - 2.5 HIP SURGERY: 2 - 3B) Primary and secondary prevention of venous THROMBOSIS: 2 - 3C) Active venous thrombosis, pulmonary embolismand prevention of recurrent venous thrombosis: 2 - 3D) Prevention of arterial thromboembolismincluding patients with mechanical heart valves: 3 - 4.5 Platelets Auto (Bld) [#/Vol] Ordered By: Jaime Rodriguez on 03-31-2022 Platelets (Bld) [#/Vol] 422 10*3/uL 150-450 [facility] Protein Auto test strip (U) [Mass/Vol]Ordered By: Jessica Akhtar on 03-31-2022 Protein (U) [Mass/Vol] Negative Negative [facility] Protein [Mass/volume] in Ser um or PlasmaOrdered By: Jaime Rodriguez on 03-31-2022 Protein [Mass/Vol] 5.7 g/dL 6.1-7.9 [facility] Prothrombin Time INRon 03-31 INR Coag (PPP) [Relative time] 1.0 {INR} Normal [facility] Comment on above: Result Comment: INR Therapeutic Range A) Pre- and Peroperative OAT started two weeks before surgery. NOT HIP SURGERY: 1.5 - 2.5 HIP SURGERY: 2 - 3 B) Primary and secondary prevention of venous THROMBOSIS: 2 - 3 C) Active venous thrombosis, pulmonary embolism and prevention of recurrent venous thrombosis: 2 - 3 D) Prevention of arterial thromboembolism including patients with mechanical heart valves: 3 - 4.5 Performed By: #### C BC, MG, CMP, ESR, LIPASE, TSH3 #### [facility] [address] PT Coag (PPP) [Time] 11.3 s Normal 9.0-12.9 [facility] Comment on above: Performed By: #### C BC, MG, CMP, ESR, LIPASE, TSH3 #### [facility] [address] RBC Auto (Bld) [#/Vol]Ordere d By: Jaime Rodriguez on 03-31-2022 RBC (Bld) [#/Vol] 2.38 10*6/uL 3.60-5.00 [facility] Serum or plasma alanine carlos otransferase measurement without P-5'-P (enzymatic activiOrdered By: Jaime Rodriguez on 03-31-2022 ALT No additional P-5'-P [Catalytic activity/Vol] 16 U/L 1060 [facility] Serum or plasma albumin/glob ulin mass ratioOrdered By: Jaime Rodriguez on 03-31-2022 Albumin/Globulin [Mass ratio] 1.3 {ratio} [facility] Serum or plasma alkaline belkys sphatase measurement (enzymatic activity/volume)Ordered By: Jaime Rodriguez on 03-31-2022 ALP [Catalytic activity/Vol] 50 U/L 32-92 [facility] Serum or plasma anion gap de terminationOrdered By: Jaime Rodriguez on 03-31-2022 Anion gap [Moles/Vol] 12.0 mmol/L 6.0-15.0 [facility] Serum or plasma aspartate am inotransferase measurement (enzymatic activity/volume)Ordered By: Jaime Rodriguez on 03-31-2022 AST [Catalytic activity/Vol] 13 U/L 10-42 [facility] Serum or plasma calcium mariana urement (mass/volume)Ordered By: Jaime Rodriguez on 03-31-2022 Calcium [Mass/Vol] 8.9 mg/dL 8.2-10.2 [facility] Serum or plasma chloride jaqui surement (moles/volume)Ordered By: Jaime Rodriguez on 03-31-2022 Chloride [Moles/Vol] 103 mmol/L 95-114 [facility] Serum or plasma glucose mariana urement (mass/volume)Ordered By: Jaime Rodriguez on 03-31-2022 Glucose [Mass/Vol] 90 mg/dL 70-100 [facility] Comment on above: ADA recommended refe rence rangeRandom Glucose Reference Range is dependent on time and content of last meal. Glucose of more than 200 mg/dL in a nonstressed, ambulatory subject supports the diagnosis of Diabetes Mellitus. Serum or plasma potassium me asurement (moles/volume)Ordered By: Jaime Rodriguez on 03-31-2022 Potassium [Moles/Vol] 3.1 mmol/L 3.5-5.1 [facility] Serum or plasma sodium measu rement (moles/volume)Ordered By: Jaime Rodriguez on 03-31-2022 Sodium [Moles/Vol] 136 mmol/L 136-146 [facility] Serum or plasma total biliru bin measurement (mass/volume)Ordered By: Jaime Rodriguez on 03-31-2022 Bilirubin [Mass/Vol] 0.3 mg/dL 0.3-1.2 [facility] Serum or plasma total carbon dioxide measurement (moles/volume)Ordered By: Jaime Rodriguez on 03-31-2022 CO2 [Moles/Vol] 24.1 mmol/L 22.0-30.0 [facility] Serum or plasma urea nitroge n measurement (mass/volume)Ordered By: Jaime Rodriguez on 03-31-2022 Urea nitrogen [Mass/Vol] 6 mg/dL 9-23 [facility] Ghazala Ag Negativeon 03-31-20 Ghazala Ag Negative Negative Normal Negative [facility] Comment on above: Result Comment: This is a duplicate Ghazala SARS Antigen (DISHA) result to be used for statistical tracking purpose only. PERFORMED BY: [place] [address] PATHOLOGIST BALL ASSEMBLER RADHA GARCIA M.D. Performed By: #### C BC, MG, CMP, ESR, LIPASE, TSH3 #### [facility] [address] [place] [address] Specific gravity Auto test s trip (U) [Rel density]Ordered By: Jessica Akhtar on 03-31-2022 Specific gravity (U) [Rel density] 1.005 1.001-1.03 0 [facility] Squamous epithelial cells de tection in urine sediment by light microscopyOrdered By: Jessica Akhtar on 03-31-2022 Epithelial cells.squamous LM Ql (Urine sed) 5-9 [HPF] 0-2 [facility] Stool Cultureon 03-31-2022 Stool culture Negative for Shiga T oxin 1 Negative for Shiga Toxin 2 -- A negative Shiga Toxin result may occur if the antigen level in the specimen is below the detection limit of the assay. Stool culture results No Salmonella, Shigella, Campy or E. coli 0157:H7 Isolated PERFORMED BY: [place] [address] PATHOLOGIST BALL ASSEMBLER RADHA GARCIA M.D. [facility] Comment on above: Performed By: #### C BC, MG, CMP, ESR, LIPASE, TSH3 #### [facility] [address] [place], [place] [id number] [facility] Stool Occult Blood (Guaiac)o n 03-31-2022 Stool Occult Blood (Guaiac) Occult Blood Positive for Occult Blood by Guaiac Methodology -- Reference range = Negative LACTOFERRIN Negative for Fecal Lactoferrin Immune suppression may cause reduced WBC counts, leading to a false negative result. -- Reference range = Negative PERFORMED BY: [place] [address] PATHOLOGIST BALL ASSEMBLER RADHA GARCIA M.D. Normal [facility] Comment on above: Performed By: #### C BC, MG, CMP, ESR, LIPASE, TSH3 #### [facility] [address] [place] [address] TSH DL <= 0.005 mIU/L QnOrde red By: Jaime Rodriguez on 03-31-2022 TSH Qn 3.41 m[IU]/L 0.45-5.33 [facility] Thyroid Stimulating Hormoneo n 03-31-2022 TSH Qn 3.41 m[IU]/L Normal 0.45-5.33 [facility] Comment on above: Result Comment: PERF ORMED BY: [place] [address] PATHOLOGIST BALL ASSEMBLER RADHA GARCIA M.D. Performed By: #### C BC, MG, CMP, ESR, LIPASE, TSH3 #### [facility] [address] [place], [place] [id number] [place] Type and Screenon 03-31-2022 ABO and Rh group Nom (Bld) Blood group O Rh(D) positive Normal [facility] Comment on above: Order Comment: Trans fuse now? Y Number of units to transfuse now? 1 Result Comment: PERF ORMED BY: [place] [address] PATHOLOGIST BALL ASSEMBLER RADHA GARCIA M.D. Urine Cultureon 03-31-2022 Bacteria identified Cx Nom (U) ORGANISM: Escherichia coli (ESBL) (O:ESCCOLESBL) [place] Count >100,000 Aerobic DIVYA Charge (NUC86) SUSCEPTIBILITY ORGANISM: O:ESCCOLESBL ANTIBIOTIC INTERPRETATION DIVYA Amikacin S <16 Ampicillin R* >16 Ampicillin/Sulbactam S <8/4 Aztreonam ESBL >16 Cefazolin R* >16 Cefepime R* >16 Ceftazidime ESBL 16 Ceftazidime/Avibactam S <8 Ceftriaxone ESBL >32 Ciprofloxacin S <1 Ertapenem S <0.5 Gentamicin S <4 Levofloxacin S <2 Meropenem S <1 Nitrofurantoin S <32 Piperacillin/Tazobactam S <16 Tetracycline S <4 Tigecycline S <2 Tobramycin S <4 Trimethoprim/Sulfamethoxaz ole S <2/38 S = SUSCEPTIBLE I = INTERMEDIATE R = RESISTANT BLANK = DATA NOT AVAILABLE, OR DRUG NOT ADVISABLE OR TESTED R* = RESISTANCE DUE TO EXTENDED SPECTRUM BETA-LACTAMASES ESBL = EXTENDED SPECTRUM BETA-LACTAMASE TFG = THYMIDINE-DEPENDENT STRAIN EVE = BETA-LACTAMASE POSITIVE IB = INDUCIBLE BETA-LACTAMASE. APPEARS IN PLACE OF 'S' WITH SPECIES KNOWN TO POSSESS INDUCIBLE BETA-LACTAMASES. POTENTIALLY THEY MAY BECOME RESISTANT TO ALL B-LACTAM DRUGS. PERFORMED BY: [place] [address] PATHOLOGIST BALL ASSEMBLER RADHA GARCIA M.D. Normal [facility] Comment on above: Performed By: #### L IPASE, PT, CBC, PTT, CMP #### [facility] [address] [place] [address] Urine bacteria detection by automated methodOrdered By: Jessica Akhtar on 03-31-2022 Bacteria Auto Ql (U) 3+ None Seen [facility] Urine clarity by refractomet ry automatedOrdered By: Jessica Akhtar on 03-31-2022 Clarity Refractometry automated (U) Clear Clear [facility] Urine glucose measurement by automated test strip (mass/volume)Ordered By: Jessica Akhtar on 03-31-2022 Glucose Auto test strip (U) [Mass/Vol] Normal mg/dL Normal [facility] Urine hemoglobin detection b y automated test stripOrdered By: Jessica Akhtar on 03-31-2022 Hemoglobin Auto test strip Ql (U) Negative Negative [facility] Urine leukocyte esterase det ection by automated test stripOrdered By: Jessica Akhtar on 03-31-2022 Leukocyte esterase Auto test strip Ql (U) 3+ Negative [facility] Urobilinogen Auto test strip (U) [Mass/Vol]Ordered By: Jessica Akhtar on 03-31-2022 Urobilinogen (U) [Mass/Vol] Normal mg/dL Normal [facility] Vit. B12/Folate Profileon Cobalamin (Vitamin B12) [Mass/Vol] 111 pg/mL Low 180-914 [facility] Comment on above: Order Comment: Ada nt add Performed By: #### L IPASE, PT, CBC, PTT, CMP #### [facility] [address] Folate 21.7 ng/mL Normal >5.9 [facility] Comment on above: Order Comment: Ada nt add Result Comment: Gabi te reference range: >5.9 ng/ml The WHO technical consultation on folate and vitamin b12 deficiencies has determined that folate concentrations less than 4 ng/ml are considered deficient. PERFORMED BY: [place] [address] PATHOLOGIST BALL ASSEMBLER RADHA GARCIA M.D. Performed By: #### L IPASE, PT, CBC, PTT, CMP #### [facility] [address] pH Auto test strip (U)Ordere d By: Jessica Akhtar on 03-31-2022 pH (U) 5.5 [pH] 5.0-9.0 [facility] Urine culture routineOrdered By: Dominik Vanegas on 03-30-2022 Bacteria identified Cx Nom (U) Escherichia coli (ESBL) [facility] Activated partial thrombopla stin time (aPTT) in platelet poor plasma by coagulation aOrdered By: Dominik Vanegas on 03-27-2022 aPTT Coag (PPP) [Time] 27.8 s 25.1-36.5 [facility] Albumin [Mass/volume] in Ser um or PlasmaOrdered By: Dominik Vanegas on 03-27-2022 Albumin [Mass/Vol] 3.5 g/dL 3.2-5.5 [facility] Automated erythrocytes count in urine sediment (number/area)Ordered By: Dominik Vanegas on 03-27-2022 RBC Auto (Urine sed) [#/Area] 10-19 [HPF] 0-4 [facility] Automated leukocytes count i n urine sediment (number/area)Ordered By: Dominik Vanegas on 03-27-2022 WBC Auto (Urine sed) [#/Area] Innumerable [HPF] 0-4 [facility] Automated urine hyaline cast s count (number/volume)Ordered By: Dominik Vanegas on 03-27-2022 Hyaline casts Auto (U) [#/Vol] None seen [LPF] 0-1 [facility] Basophils Auto (Bld) [#/Vol] Ordered By: Dominik Vanegas on 03-27-2022 Basophils (Bld) [#/Vol] 0.0 10*3/uL 0.0-0.2 [facility] Basophils/100 WBC Auto (Bld) Ordered By: Dominik Vanegas on 03-27-2022 Basophils/100 WBC (Bld) 0.4 % . [facility] Bilirubin Test strip Ql (U)O rdered By: Dmoinik Vanegas on 03-27-2022 Bilirubin Ql (U) Negative Negative [facility] Blood hemoglobin measurement (mass/volume)Ordered By: Dominik Vanegas on 03-27-2022 Hemoglobin (Bld) [Mass/Vol] 9.8 g/dL 11.8-15.4 [facility] Blood leukocytes automated c ount (number/volume)Ordered By: Dominik Vanegas on 03-27-2022 WBC (Bld) [#/Vol] 11.7 10*3/uL 4.5-11.0 [facility] CT abdomen pelvis w conon CT abdomen pelvis w con [facility] Main [place] [address] [place] [address] CT Scan Report Signed Patient: Raquel Correa MR#: [id number] : 1985 Acct:[id number] Age/Sex: 37 / F ADM Date: 03/27/22 Loc: ER Room: Type: [facility] ER Attending Dr: Copies to: Dominik Vanegas DO Ordering Provider: Dominik Vanegas DO Date of Service: 03/27/22 CT/CT abdomen pelvis w con: f CT abdomen pelvis w con 03/27/2022 12:38 PM SIGNS AND SYMPTOMS: Rectal bleeding, dizziness, diaphoresis with tachycardia TECHNIQUE: Multidetector ct axial images of the abdomen and pelvis were obtained with IV contrast. Multiplanar reformats were performed and reviewed to further define anatomy and possible pathology. CT was performed with one or more of the following dose reduction techniques: Automated exposure control, adjustment of the mA and/or kV according to patient size, or use of iterative reconstruction technique. COMPARISON: None. FINDINGS: Lower Chest: There is dependent atelectasis in the lung bases. ABDOMEN: Liver: Within normal limits. Bile Ducts: Normal caliber. Gallbladder: Previously removed. Pancreas: Within normal limits. Spleen: Within normal limits. Adrenals: Within normal limits. Kidneys: Cysts are noted in the renal cortices. There are also dystrophic calcifications along the inferior pole on the right which is unchanged. There is mild right-sided renal cortical atrophy which is unchanged. Pelvis: Reproductive Organs: There is an intrauterine device within the endometrial canal. There is a lobulated cystic adnexal structure on the right measuring 7.3 cm in greatest dimension. Ureters: Within normal limits. Bladder: There is bladder wall thickening suspicious for cystitis. Bowel: Wall thickening and enhancement are noted along the rectum suggesting an infectious or inflammatory etiology. There is evidence of surgical anastomosis within the bowel similar to the prior study. Mesenteric Lymph Nodes: No enlarged mesenteric lymph nodes. Peritoneum: No ascites or free air, no fluid collection. Vessels: within normal limits Retroperitoneum: Within normal limits. Abdominal Wall: There is rectus diastases in the periumbilical region. Bones: Degenerative changes are noted in the sacroiliac joints. CT/CT abdomen pelvis w con IMPRESSION: Wall thickening and enhancement are noted along the rectum suggesting an infectious or inflammatory etiology. There is a lobulated cystic adnexal structure on the right measuring 7.3 cm in greatest dimension. There is bladder wall thickening suspicious for cystitis. No bowel obstruction or obstructive uropathy. No free fluid or free air. Additional chronic findings are noted, as above. Impression dictated by: Nicolas Beck M.D.03/27/2022 1:58 PM Dictation Location: [place] [address] Transcribed By: [facility] 03/27/22 1358 Dictated By: Nicolas Beck II, MD 03/27/22 1350 Signed By: 03/27/22 1358 Normal [facility] Casts typing in urine sedime nt by light microscopyOrdered By: Dominik Vanegas on 03-27-2022 Casts LM Nom (Urine sed) None seen [LPF] None Seen [facility] Color Auto (U)Ordered By: Bhavesh Vanegas on 03-27-2022 Color (U) Dark yellow Yellow [facility] Complete Blood Count Auto Di ffon 03-27-2022 Basophils (Bld) [#/Vol] 0.0 10*3/uL Normal 0.0-0.2 [facility] Comment on above: Result Comment: PERF ORMED BY: [place] [address] PATHOLOGIST BALL ASSEMBLER RADHA GARCIA M.D. Performed By: #### L IPASE, PT, CBC, PTT, CMP #### [facility] [address] [place] [address] Basophils/100 WBC (Bld) 0.4 % Normal . [facility] Comment on above: Performed By: #### L IPASE, PT, CBC, PTT, CMP #### [facility] [address] Eosinophils (Bld) [#/Vol] 0.0 10*3/uL Normal 0.0-0.45 [facility] Comment on above: Performed By: #### L IPASE, PT, CBC, PTT, CMP #### [address] Eosinophils/100 WBC (Bld) 0.3 % Normal . [facility] Comment on above: Performed By: #### L IPASE, PT, CBC, PTT, CMP #### [address] Erythrocyte distribution width (RBC) [Ratio] 13.2 % Normal 11.9-15.3 [facility] Comment on above: Performed By: #### L IPASE, PT, CBC, PTT, CMP #### [address] Hematocrit (Bld) [Volume fraction] 29.0 % Low 34.0-46.4 [facility] Comment on above: Performed By: #### L IPASE, PT, CBC, PTT, CMP #### [address] Hemoglobin (Bld) [Mass/Vol] 9.8 g/dL Low 11.8-15.4 [facility] Comment on above: Performed By: #### L IPASE, PT, CBC, PTT, CMP #### [address] Lymphocytes (Bld) [#/Vol] 2.9 10*3/uL Normal 1.00-4.8 [facility] Comment on above: Performed By: #### L IPASE, PT, CBC, PTT, CMP #### [address] Lymphocytes/100 WBC (Bld) 24.8 % Normal . [facility] Comment on above: Performed By: #### L IPASE, PT, CBC, PTT, CMP #### [address] MCH (RBC) [Entitic mass] 28.8 pg Normal 24.7-34.3 [facility] Comment on above: Performed By: #### L IPASE, PT, CBC, PTT, CMP #### [address] MCV (RBC) [Entitic vol] 85.3 fL Normal 80-100 [facility] Comment on above: Performed By: #### L IPASE, PT, CBC, PTT, CMP #### [address] Mean Corpuscular HGB Conc 33.7 g/dL Normal 32.0-35.0 [facility] Comment on above: Performed By: #### L IPASE, PT, CBC, PTT, CMP #### [address] Monocytes (Bld) [#/Vol] 0.8 10*3/uL Normal 0.0-0.8 [facility] Comment on above: Performed By: #### L IPASE, PT, CBC, PTT, CMP #### [address] Monocytes/100 WBC (Bld) 6.6 % Normal . [facility] Comment on above: Performed By: #### L IPASE, PT, CBC, PTT, CMP #### [address] Neutrophils (Bld) [#/Vol] 7.9 10*3/uL High 1.8-7.7 [facility] Comment on above: Performed By: #### L IPASE, PT, CBC, PTT, CMP #### [address] Neutrophils/100 WBC (Bld) 67.9 % Normal . [facility] Comment on above: Performed By: #### L IPASE, PT, CBC, PTT, CMP #### [place] [address] [place] Nucleated RBC/100 WBC (Bld) [Ratio] 0.1 % Normal 0-0.5 [facility] Comment on above: Performed By: #### L IPASE, PT, CBC, PTT, CMP #### [address] Platelet mean volume (Bld) [Entitic vol] 8.0 fL Normal 6.3-10.7 [facility] Comment on above: Performed By: #### L IPASE, PT, CBC, PTT, CMP #### [facility] [address] Platelets (Bld) [#/Vol] 471 10*3/uL High 150-450 [facility] Comment on above: Performed By: #### L IPASE, PT, CBC, PTT, CMP #### [address] RBC (Bld) [#/Vol] 3.40 10*6/uL Low 3.60-5.00 [facility] Comment on above: Performed By: #### L IPASE, PT, CBC, PTT, CMP #### [address] WBC (Bld) [#/Vol] 11.7 10*3/uL High 4.5-11.0 [facility] Comment on above: Performed By: #### L IPASE, PT, CBC, PTT, CMP #### [address] Comprehensive Metabolic Pane eagle 03-27-2022 Albumin [Mass/Vol] 3.5 g/dL Normal 3.2-5.5 [facility] Comment on above: Performed By: #### C BC, MG, CMP, ESR, LIPASE, TSH3 #### [address] Albumin/Globulin [Mass ratio] 1.2 {ratio} Normal [facility] Comment on above: Performed By: #### C BC, MG, CMP, ESR, LIPASE, TSH3 #### [address] ALP [Catalytic activity/Vol] 69 U/L Normal 32-92 [facility] Comment on above: Performed By: #### C BC, MG, CMP, ESR, LIPASE, TSH3 #### [address] ALT [Catalytic activity/Vol] 34 U/L Normal 10-60 [facility] Comment on above: Performed By: #### C BC, MG, CMP, ESR, LIPASE, TSH3 #### [facility] [address] [place] [address] Anion gap [Moles/Vol] 12.7 mmol/L Normal 6.0-15.0 [facility] Comment on above: Performed By: #### C BC, MG, CMP, ESR, LIPASE, TSH3 #### [address] AST [Catalytic activity/Vol] 22 U/L Normal 10-42 [facility] Comment on above: Performed By: #### C BC, MG, CMP, ESR, LIPASE, TSH3 #### [address] Bilirubin [Mass/Vol] 0.3 mg/dL Normal 0.3-1.2 [facility] Comment on above: Performed By: #### C BC, MG, CMP, ESR, LIPASE, TSH3 #### [address] Calcium [Mass/Vol] 9.1 mg/dL Normal 8.2-10.2 [facility] Comment on above: Performed By: #### C BC, MG, CMP, ESR, LIPASE, TSH3 #### [address] Chloride [Moles/Vol] 98 mmol/L Normal 95-114 [facility] Comment on above: Performed By: #### C BC, MG, CMP, ESR, LIPASE, TSH3 #### [address] CO2 [Moles/Vol] 24.3 mmol/L Normal 22.0-30.0 [facility] Comment on above: Performed By: #### C BC, MG, CMP, ESR, LIPASE, TSH3 #### [address] Creatinine [Mass/Vol] 0.82 mg/dL Normal 0.44-1.03 [facility] Comment on above: Performed By: #### C BC, MG, CMP, ESR, LIPASE, TSH3 #### [address] Creatinine Clr Calc Pharmacy 75.74 [facility] Comment on above: Performed By: #### C BC, MG, CMP, ESR, LIPASE, TSH3 #### [address] Estimated GFR ( Letty > 60 [facility] Comment on above: Result Comment: GFR estimated reference range: According to KDOQI guidelines, <60 ml/min/1.73m2 is sufficient to diagnose a patient with chronic kidney disease. Performed By: #### C BC, MG, CMP, ESR, LIPASE, TSH3 #### [address] Estimated GFR (Non- Am > 60 [facility] Comment on above: Performed By: #### C BC, MG, CMP, ESR, LIPASE, TSH3 #### [address] Globulin (S) [Mass/Vol] 2.9 g/dL [facility] Comment on above: Performed By: #### C BC, MG, CMP, ESR, LIPASE, TSH3 #### [address] Glucose [Mass/Vol] 111 mg/dL High 70-100 [facility] Comment on above: Result Comment: [place] Glucose Reference Range is dependent on time and content of last meal. Glucose of more than 200 mg/dL in a nonstressed, ambulatory subject supports the diagnosis of Diabetes Mellitus. ADA recommended reference range Performed By: #### C BC, MG, CMP, ESR, LIPASE, TSH3 #### [address] Potassium [Moles/Vol] 3.0 mmol/L Low 3.5-5.1 [facility] Comment on above: Performed By: #### C BC, MG, CMP, ESR, LIPASE, TSH3 #### [address] Protein [Mass/Vol] 6.4 g/dL Normal 6.1-7.9 [facility] Comment on above: Performed By: #### C BC, MG, CMP, ESR, LIPASE, TSH3 #### [facility] [address] Sodium [Moles/Vol] 132 mmol/L Low 136-146 [facility] Comment on above: Performed By: #### C BC, MG, CMP, ESR, LIPASE, TSH3 #### [facility] [address] Urea nitrogen [Mass/Vol] 6 mg/dL Low 9-23 [facility] Comment on above: Performed By: #### C BC, MG, CMP, ESR, LIPASE, TSH3 #### [address] Creatinine and Glomerular fi ltration rate.predicted panel (S/P/Bld)Ordered By: Dominik Vanegas on 03-27-2022 Creatinine [Mass/Vol] 0.82 mg/dL 0.44-1.03 [facility] Dipstick and Microscopicon 1 Appearance (U) Cloudy Critically abnormal Clear [facility] Comment on above: Order Comment: Name Collection Type:: Clean-Voided Midstream Performed By: #### C BC, MG, CMP, ESR, LIPASE, TSH3 #### [facility] [address] Bacteria,Urine 4+ High None Seen [facility] Comment on above: Order Comment: Name Collection Type:: Clean-Voided Midstream Performed By: #### C BC, MG, CMP, ESR, LIPASE, TSH3 #### [facility] [address] [place] [address] [place] Bilirubin,Urine Negative Normal Negative [facility] Comment on above: Order Comment: Name Collection Type:: Clean-Voided Midstream Performed By: #### C BC, MG, CMP, ESR, LIPASE, TSH3 #### [facility] [address] Color (U) Dark Yellow Critically abnormal Yellow [facility] Comment on above: Order Comment: Name Collection Type:: Clean-Voided Midstream Performed By: #### C BC, MG, CMP, ESR, LIPASE, TSH3 #### [facility] [address] [place] [address] Glucose Ql (U) Normal Normal Normal [facility] Comment on above: Order Comment: Name Collection Type:: Clean-Voided Midstream Performed By: #### C BC, MG, CMP, ESR, LIPASE, TSH3 #### [address] Hyaline Casts,Urine None Seen Normal 0-1 [facility] Comment on above: Order Comment: Name Collection Type:: Clean-Voided Midstream Performed By: #### C BC, MG, CMP, ESR, LIPASE, TSH3 #### [address] Ketones Ql (U) 1+ High Negative [facility] Comment on above: Order Comment: Name Collection Type:: Clean-Voided Midstream Performed By: #### C BC, MG, CMP, ESR, LIPASE, TSH3 #### [facility] [address] [place] [address] Leukocyte esterase Test strip Ql (U) 4+ High Negative [facility] Comment on above: Order Comment: Name Collection Type:: Clean-Voided Midstream Performed By: #### C BC, MG, CMP, ESR, LIPASE, TSH3 #### [facility] [address] [place] [address] Nitrite,Urine Positive High Negative [facility] Comment on above: Order Comment: Name Collection Type:: Clean-Voided Midstream Performed By: #### C BC, MG, CMP, ESR, LIPASE, TSH3 #### [facility] [address] [place] [address] [place] Occult Blood,Urine Trace High Negative [facility] Comment on above: Order Comment: Name Collection Type:: Clean-Voided Midstream Performed By: #### C BC, MG, CMP, ESR, LIPASE, TSH3 #### [address] Other Casts,Urine None Seen Normal None Seen [facility] Comment on above: Order Comment: Name Collection Type:: Clean-Voided Midstream Performed By: #### C BC, MG, CMP, ESR, LIPASE, TSH3 #### [address] pH (U) 6.0 [pH] Normal 5.0-9.0 [facility] Comment on above: Order Comment: Name Collection Type:: Clean-Voided Midstream Performed By: #### C BC, MG, CMP, ESR, LIPASE, TSH3 #### [address] Protein (U) [Mass/Vol] 30 mg/dL High Negative [facility] Comment on above: Order Comment: Name Collection Type:: Clean-Voided Midstream Performed By: #### C BC, MG, CMP, ESR, LIPASE, TSH3 #### [facility] [address] [place] [address] RBC,Urine 10-19 High 0-4 [facility] Comment on above: Order Comment: Name Collection Type:: Clean-Voided Midstream Performed By: #### C BC, MG, CMP, ESR, LIPASE, TSH3 #### [address] Specificy [place],Urine 1.020 Normal 1.001-1.03 0 [facility] Comment on above: Order Comment: Name Collection Type:: Clean-Voided Midstream Performed By: #### C BC, MG, CMP, ESR, LIPASE, TSH3 #### [address] Squamous Epithelial Cell,Urine 10-19 High 0-2 [facility] Comment on above: Order Comment: Name Collection Type:: Clean-Voided Midstream Performed By: #### C BC, MG, CMP, ESR, LIPASE, TSH3 #### [address] Urobilinogen,Urine Normal Normal Normal [facility] Comment on above: Order Comment: Name Collection Type:: Clean-Voided Midstream Performed By: #### C BC, MG, CMP, ESR, LIPASE, TSH3 #### [facility] [address] WBC,Urine Innumerable High 0-4 [facility] Comment on above: Order Comment: Name Collection Type:: Clean-Voided Midstream Performed By: #### C BC, MG, CMP, ESR, LIPASE, TSH3 #### [facility] [address] Eosinophils Auto (Bld) [#/Vo l]Ordered By: Dominik Vanegas on 03-27-2022 Eosinophils (Bld) [#/Vol] 0.0 10*3/uL 0.0-0.45 [facility] Eosinophils/100 WBC Auto (Bl d)Ordered By: Dominik Vanegas on 03-27-2022 Eosinophils/100 WBC (Bld) 0.3 % . [facility] Erythrocyte distribution wid th Auto (RBC) [Ratio]Ordered By: Dominik Vanegas on 03-27-2022 Erythrocyte distribution width (RBC) [Ratio] 13.2 % 11.9-15.3 [facility] Estimated glomerular filtrat ion rate (GFR) non- AmericanOrdered By: Dominik Vanegas on 03-27-2022 GFR/1.73 sq M.predicted among non-blacks MDRD (S/P/Bld) [Vol rate/Area] > 60 mL/Min [facility] Globulin Calc (S) [Mass/Vol] Ordered By: Dominik Vanegas on 03-27-2022 Globulin (S) [Mass/Vol] 2.9 g/dL [facility] HCG ( test) IA.rapi d Ql (U)Ordered By: Dominik Vanegas on 03-27-2022 HCG ( test) Ql (U) Negative [facility] HCG,Urineon 03-27-2022 Beta HCG ( test) Ql (U) Negative Normal [facility] Comment on above: Order Comment: Name Collection Type:: Clean-Voided Midstream Result Comment: PERF ORMED BY: [place] [address] PATHOLOGIST BALL ASSEMBLER RADHA GARCIA M.D. Performed By: #### C BC, MG, CMP, ESR, LIPASE, TSH3 #### [facility] [address] [place] [address] Hematocrit Auto (Bld) [Volum e fraction]Ordered By: Dominik Vanegas on 03-27-2022 Hematocrit (Bld) [Volume fraction] 29.0 % 34.0-46.4 [facility] Ketones Auto test strip (U) [Mass/Vol]Ordered By: Dominik Vanegas on 03-27-2022 Ketones (U) [Mass/Vol] 1+ Negative Fi [facility] - Chemistry and C hemistry - challengeOrdered By: Dominik Vanegas on 03-27-2022 Lipase [Catalytic activity/Vol] 31.0 U/L [facility] - CoagulationOrde red By: Dominik Vanegas on 03-27-2022 PT Coag (PPP) [Time] 12.4 s 9.0-12.9 [facility] - Hematology and Cell countsOrdered By: Dominik Vanegas on 03-27-2022 Nucleated RBC/100 WBC (Bld) [Ratio] 0.1 % 0-0.5 [facility] Lipaseon 03-27-2022 Lipase [Catalytic activity/Vol] 31.0 U/L Normal [facility] Comment on above: Result Comment: PERF ORMED BY: [place] [address] PATHOLOGIST BALL ASSEMBLER RADHA GARCIA M.D. Performed By: #### C BC, MG, CMP, ESR, LIPASE, TSH3 #### [address] Lymphocytes Auto (Bld) [#/Vo l]Ordered By: Dominik Vanegas on 03-27-2022 Lymphocytes (Bld) [#/Vol] 2.9 10*3/uL 1.00-4.8 [facility] Lymphocytes/100 WBC Auto (Bl d)Ordered By: Dominik Vanegas on 03-27-2022 Lymphocytes/100 WBC (Bld) 24.8 % . [facility] MCH Auto (RBC) [Entitic mass ]Ordered By: Dominik Vanegas on 03-27-2022 MCH (RBC) [Entitic mass] 28.8 pg 24.7-34.3 [facility] MCHC Auto (RBC) [Mass/Vol]Or dered By: Dominik Vanegas on 03-27-2022 MCHC (RBC) [Mass/Vol] 33.7 g/dL 32.0-35.0 [facility] MCV Auto (RBC) [Entitic vol] Ordered By: Dominik Vanegas on 03-27-2022 MCV (RBC) [Entitic vol] 85.3 fL 80-100 [facility] Monocytes Auto (Bld) [#/Vol] Ordered By: Dominik Vanegas on 03-27-2022 Monocytes (Bld) [#/Vol] 0.8 10*3/uL 0.0-0.8 [facility] Monocytes/100 WBC Auto (Bld) Ordered By: Dominik Vanegas on 03-27-2022 Monocytes/100 WBC (Bld) 6.6 % . [facility] Neutrophils Auto (Bld) [#/Vo l]Ordered By: Dominik Vanegas on 03-27-2022 Neutrophils (Bld) [#/Vol] 7.9 10*3/uL 1.8-7.7 [facility] Neutrophils/100 WBC Auto (Bl d)Ordered By: Dominik Vanegas on 03-27-2022 Neutrophils/100 WBC (Bld) 67.9 % . [facility] Nitrite Test strip Ql (U)Ord ered By: Dominik Vanegas on 03-27-2022 Nitrite Ql (U) Positive Negative [facility] No Panel InformationOrdered By: Dominik Vanegas on 03-27-2022 Estimated GFR () > 60 mL/Min [facility] Comment on above: GFR estimated refere nce range: According to KDOQI guidelines, <60 ml/min/1.73m2 is sufficient to diagnose a patient with chronic kidney disease. Pharmacy Creatinine Clearance (Chem 75.74 [facility] Partial Thromboplastin Timeo n 03-27-2022 aPTT Coag (Bld) [Time] 27.8 s Normal 25.1-36.5 [facility] Comment on above: Result Comment: PERF ORMED BY: [place] [address] PATHOLOGIST BALL ASSEMBLER RADHA GARCIA M.D. Performed By: #### L IPASE, PT, CBC, PTT, CMP #### [address] Platelet mean volume Auto (B ld) [Entitic vol]Ordered By: Dominik Vanegas on 03-27-2022 Platelet mean volume (Bld) [Entitic vol] 8.0 fL 6.3-10.7 [facility] Platelet poor plasma interna tional normalized ratio (INR) by coagulation assay (relatOrdered By: Dominik Vanegas on 03-27-2022 INR Coag (PPP) [Relative time] 1.1 {INR} [facility] Comment on above: INR Therapeutic Rang e A) Pre- and Peroperative OAT started two weeks before surgery. NOT HIP SURGERY: 1.5 - 2.5 HIP SURGERY: 2 - 3B) Primary and secondary prevention of venous THROMBOSIS: 2 - 3C) Active venous thrombosis, pulmonary embolismand prevention of recurrent venous thrombosis: 2 - 3D) Prevention of arterial thromboembolismincluding patients with mechanical heart valves: 3 - 4.5 Platelets Auto (Bld) [#/Vol] Ordered By: Dominik Vanegas on 03-27-2022 Platelets (Bld) [#/Vol] 471 10*3/uL 150-450 [facility] Protein Auto test strip (U) [Mass/Vol]Ordered By: Dominik Vanegas on 03-27-2022 Protein (U) [Mass/Vol] 30 mg/dL Negative Fi [facility] Protein [Mass/volume] in Ser um or PlasmaOrdered By: Dominik Vanegas on 03-27-2022 Protein [Mass/Vol] 6.4 g/dL 6.1-7.9 [facility] Prothrombin Time INRon 03-27 INR Coag (PPP) [Relative time] 1.1 {INR} Normal [facility] Comment on above: Result Comment: INR Therapeutic Range A) Pre- and Peroperative OAT started two weeks before surgery. NOT HIP SURGERY: 1.5 - 2.5 HIP SURGERY: 2 - 3 B) Primary and secondary prevention of venous THROMBOSIS: 2 - 3 C) Active venous thrombosis, pulmonary embolism and prevention of recurrent venous thrombosis: 2 - 3 D) Prevention of arterial thromboembolism including patients with mechanical heart valves: 3 - 4.5 Performed By: #### L IPASE, PT, CBC, PTT, CMP #### [facility] [address] PT Coag (PPP) [Time] 12.4 s Normal 9.0-12.9 [facility] Comment on above: Performed By: #### L IPASE, PT, CBC, PTT, CMP #### [facility] [address] RBC Auto (Bld) [#/Vol]Ordere d By: Dominik Vanegas on 03-27-2022 RBC (Bld) [#/Vol] 3.40 10*6/uL 3.60-5.00 [facility] Serum or plasma alanine carlos otransferase measurement without P-5'-P (enzymatic activiOrdered By: Dominik Vanegas on 03-27-2022 ALT No additional P-5'-P [Catalytic activity/Vol] 34 U/L [facility] Serum or plasma albumin/glob ulin mass ratioOrdered By: Dominik Vanegas on 03-27-2022 Albumin/Globulin [Mass ratio] 1.2 {ratio} [facility] Serum or plasma alkaline belkys sphatase measurement (enzymatic activity/volume)Ordered By: Dominik Vanegas on 03-27-2022 ALP [Catalytic activity/Vol] 69 U/L 32-92 [facility] Serum or plasma anion gap de terminationOrdered By: Dominik Vanegas on 03-27-2022 Anion gap [Moles/Vol] 12.7 mmol/L 6.0-15.0 [facility] Serum or plasma aspartate am inotransferase measurement (enzymatic activity/volume)Ordered By: Dominik Vanegas on 03-27-2022 AST [Catalytic activity/Vol] 22 U/L [facility] Serum or plasma calcium mariana urement (mass/volume)Ordered By: Dominik Vanegas on 03-27-2022 Calcium [Mass/Vol] 9.1 mg/dL 8.2-10.2 [facility] Serum or plasma chloride jauqi surement (moles/volume)Ordered By: Dominik Vanegas on 03-27-2022 Chloride [Moles/Vol] 98 mmol/L 95-114 [facility] Serum or plasma glucose mariana urement (mass/volume)Ordered By: Dominik Vanegas on 03-27-2022 Glucose [Mass/Vol] 111 mg/dL 70-100 [facility] Comment on above: ADA recommended refe rence rangeRandom Glucose Reference Range is dependent on time and content of last meal. Glucose of more than 200 mg/dL in a nonstressed, ambulatory subject supports the diagnosis of Diabetes Mellitus. Serum or plasma potassium me asurement (moles/volume)Ordered By: Dominik Vanegas on 03-27-2022 Potassium [Moles/Vol] 3.0 mmol/L 3.5-5.1 [facility] Serum or plasma sodium measu rement (moles/volume)Ordered By: Dominik Vanegas on 03-27-2022 Sodium [Moles/Vol] 132 mmol/L 136-146 [facility] Serum or plasma total biliru bin measurement (mass/volume)Ordered By: Dominik Vanegas on 03-27-2022 Bilirubin [Mass/Vol] 0.3 mg/dL 0.3-1.2 [facility] Serum or plasma total carbon dioxide measurement (moles/volume)Ordered By: Dominik Vanegas on 03-27-2022 CO2 [Moles/Vol] 24.3 mmol/L 22.0-30.0 [facility] Serum or plasma urea nitroge n measurement (mass/volume)Ordered By: Dominik Vanegas on 03-27-2022 Urea nitrogen [Mass/Vol] 6 mg/dL 9- [facility] Specific gravity Auto test s trip (U) [Rel density]Ordered By: Dominik Vanegas on 03-27-2022 Specific gravity (U) [Rel density] 1.020 1.001-1.03 0 [facility] Squamous epithelial cells de tection in urine sediment by light microscopyOrdered By: Dominik Vanegas on 03-27-2022 Epithelial cells.squamous LM Ql (Urine sed) 04-14 [HPF] 0-2 [facility] Type and Screenon 03-27-2022 ABO and Rh group Nom (Bld) Blood group O Rh(D) positive [facility] Comment on above: Result Comment: PERF ORMED BY: [facility] [address] [place] [address] PATHOLOGIST BALL ASSEMBLER RADHA GARCIA M.D. Urine Cultureon 03-27-2022 Bacteria identified Cx Nom (U) ORGANISM: Escherichia coli (ESBL) (O:ESCCOLESBL) [place] Count >100,000 Aerobic DIVYA Charge (NUC86) SUSCEPTIBILITY ORGANISM: O:ESCCOLESBL ANTIBIOTIC INTERPRETATION DIVYA Amikacin S <16 Ampicillin R* >16 Ampicillin/Sulbactam R >16/8 Aztreonam ESBL >16 Cefazolin R* >16 Cefepime R* >16 Ceftazidime ESBL >16 Ceftazidime/Avibactam S <8 Ceftriaxone ESBL >32 Ciprofloxacin S <1 Ertapenem S <0.5 Gentamicin S <4 Levofloxacin S <2 Meropenem S <1 Nitrofurantoin S <32 Piperacillin/Tazobactam S <16 Tetracycline S <4 Tigecycline S <2 Tobramycin S <4 Trimethoprim/Sulfamethoxaz ole S <2/38 S = SUSCEPTIBLE I = INTERMEDIATE R = RESISTANT BLANK = DATA NOT AVAILABLE, OR DRUG NOT ADVISABLE OR TESTED R* = RESISTANCE DUE TO EXTENDED SPECTRUM BETA-LACTAMASES ESBL = EXTENDED SPECTRUM BETA-LACTAMASE TFG = THYMIDINE-DEPENDENT STRAIN EVE = BETA-LACTAMASE POSITIVE IB = INDUCIBLE BETA-LACTAMASE. APPEARS IN PLACE OF 'S' WITH SPECIES KNOWN TO POSSESS INDUCIBLE BETA-LACTAMASES. POTENTIALLY THEY MAY BECOME RESISTANT TO ALL B-LACTAM DRUGS. PERFORMED BY: [facility] [address] [place] [address] PATHOLOGIST BALL ASSEMBLER RADHA GARCIA M.D. [facility] Comment on above: Performed By: #### C BC, MG, CMP, ESR, LIPASE, TSH3 #### [address] Urine bacteria detection by automated methodOrdered By: Dominik Vanegas on 03-27-2022 Bacteria Auto Ql (U) 4+ None Seen [facility] Urine clarity by refractomet ry automatedOrdered By: Dominik Vanegas on 03-27-2022 Clarity Refractometry automated (U) Cloudy Clear [facility] Urine glucose measurement by automated test strip (mass/volume)Ordered By: Dominik Vanegas on 03-27-2022 Glucose Auto test strip (U) [Mass/Vol] Normal mg/dL Normal [facility] Urine hemoglobin detection b y automated test stripOrdered By: Dominik Vanegas on 03-27-2022 Hemoglobin Auto test strip Ql (U) Trace Negative [facility] Urine leukocyte esterase det ection by automated test stripOrdered By: Dominik Vanegas on 03-27-2022 Leukocyte esterase Auto test strip Ql (U) 4+ Negative [facility] Urobilinogen Auto test strip (U) [Mass/Vol]Ordered By: Dominik Vanegas on 03-27-2022 Urobilinogen (U) [Mass/Vol] Normal mg/dL Normal [facility] pH Auto test strip (U)Ordere d By: Dominik Vanegas on 03-27-2022 pH (U) 6.0 [pH] 5.0-9.0 [facility] XR KUB 1 VIEWon 02-16-2022 XR KUB 1 VIEW EXAMINATION: XR KUB 1 VIEW HISTORY: Kidney stone COMPARISON: 01/07/2022 FINDINGS: KIDNEY/URETER - RIGHT: Vague calcifications project over the right mid pole kidney grossly stable KIDNEY/URETER - LEFT: No visible renal or ureteral calcifications. PELVIS: No visible ureteral calcifications. Any visible calcifications favor phleboliths. BOWEL: No abnormal dilation or deviation. BONES: No acute abnormality. OTHER: Multiple surgical suture lines and jeff. Pelvic IUD. No abnormal gaseous collections. IMPRESSION: Stable calcifications of the right kidney Electronically authenticated by: DEVYN DIETZ Date: 2022-02-16 18:37 Normal [facility] PREG HCG QUALon 01-07-2022 , QUAL Negative Normal NEGATIVE [facility] Comment on above: Performed By: #### P REG #### [facility] [address] [place] [address] Dr. Tori Thomas XR KUB 1 VIEWon 01-07-2022 XR KUB 1 VIEW EXAMINATION: XR KUB 1 VIEW HISTORY: Urolithiasis COMPARISON: 04/09/2021 FINDINGS: KIDNEY/URETER - RIGHT: r stable 1.5 cm nephrolith projects over the lower pole KIDNEY/URETER - LEFT: No visible renal or ureteral calcifications. PELVIS: No visible ureteral calcifications. Any visible calcifications favor phleboliths. BOWEL: No abnormal dilation or deviation. Multiple suture lines BONES: No acute abnormality. OTHER: IUD. No abnormal gaseous collections. IMPRESSION: Stable right nephrolithiasis Electronically authenticated by: DEVYN DIETZ Date: 2022-01-07 10:45 Normal [facility] CBC AUTO DIFFon 01-06-2022 BASO # 0.0 103/ul Normal 0.0-0.1 [facility] Comment on above: Performed By: #### U AMIC #### [facility] [address] [address] [address] Tori Thomas Basophils/100 WBC (Bld) 0.3 % Normal 0.2-2.0 [facility] Comment on above: Performed By: #### U AMIC #### [facility] [address] [address] [address] Tori Thomas EO # 0.1 103/ul Normal 0.0-0.7 [facility] Comment on above: Performed By: #### U AMIC #### [facility] [address] [place] [address] Dr. Tori Thomas Eosinophils/100 WBC (Bld) 0.9 % Normal 0.9-7.0 [facility] Comment on above: Performed By: #### U AMIC #### [facility] [address] [address] [address] Tori Thomas Erythrocyte distribution width (RBC) [Ratio] 17.7 % Critically high 11.0-15.0 [facility] Comment on above: Performed By: #### U AMIC #### [facility] [address] [address] [address] Tori Thomas Hematocrit (Bld) [Volume fraction] 35.8 % Critically low 36.0-48.0 [facility] Comment on above: Performed By: #### U AMIC #### [facility] [address] [address] [address] Tori Thomas Hemoglobin (Bld) [Mass/Vol] 11.7 g/dL Critically low 12.0-16.0 [facility] Comment on above: Performed By: #### U AMIC #### [facility] [address] [address] [address] Tori Thomas IG # 0.06 10e3/ul Critically high 0.00-0.03 [facility] Comment on above: Performed By: #### U AMIC #### [facility] [address] [address] [address] Tori Thomas IG % 0.6 % Critically high 0.0-0.5 [facility] Comment on above: Performed By: #### U AMIC #### [facility] [address] [place] [address] Dr. Tori Thomas LYMPH # 2.0 103/ul Normal 1.2-3.8 [facility] Comment on above: Performed By: #### U AMIC #### [facility] [address] [place] [address] Dr. Tori Thomas Lymphocytes/100 WBC (Bld) 19.8 % Critically low 20.5-60.0 [facility] Comment on above: Performed By: #### U AMIC #### [facility] [address] [place] [address] Dr. Tori Thomas MANUAL DIFF REQ NO Normal [facility] Comment on above: Performed By: #### U AMIC #### [facility] [address] [place] [address] Dr. Tori Thomas MCH (RBC) [Entitic mass] 29.5 pg Normal 26.7-34.0 [facility] Comment on above: Performed By: #### U AMIC #### [facility] [address] [place] [address] Dr. Tori Thomas MCHC (RBC) [Mass/Vol] 32.7 g/dL Normal 29.9-35.2 [facility] Comment on above: Performed By: #### U AMIC #### [facility] [address] [address] [address] Tori Thomas MCV (RBC) [Entitic vol] 90.2 fL Normal 81.0-99.0 [facility] Comment on above: Performed By: #### U AMIC #### [facility] [address] [address] [address] Tori Thomas MONO # 0.6 103/ul Normal 0.3-0.8 [facility] Comment on above: Performed By: #### U AMIC #### [facility] [address] [address] [address] Tori Thomas Monocytes/100 WBC (Bld) 5.9 % Normal 1.7-12.0 [facility] Comment on above: Performed By: #### U AMIC #### [facility] [address] [place] [address] Dr. Tori Thomas NEUT # 7.2 103/ul Critically high 1.4-6.5 [facility] Comment on above: Performed By: #### U AMIC #### [facility] [address] [place] [address] Dr. Tori Thomas Neutrophils/100 WBC (Bld) 72.5 % Normal 43.0-75.0 [facility] Comment on above: Performed By: #### U AMIC #### [facility] [address] [place] [address] Dr. Tori Thomas Platelet mean volume (Bld) [Entitic vol] 9.5 fL Normal 9.5-13.5 [facility] Comment on above: Performed By: #### U AMIC #### [facility] [address] [place] [address] Dr. Tori Thomas PLT 319 103/ul Normal 150-450 [facility] Comment on above: Performed By: #### U AMIC #### [facility] [address] [address] [address] Tori Thomas RBC 3.97 106/ul Critically low 4.20-5.40 [facility] Comment on above: Performed By: #### U AMIC #### [facility] [address] [address] [address] Tori Thomas WBC 10.0 103/ul Normal 4.0-11.0 [facility] Comment on above: Performed By: #### U AMIC #### [facility] [address] [place] [address] Dr. Tori Thomas PROF CHEM 8 (BAS METB)on Anion gap [Moles/Vol] 13.7 mmol/L Normal [facility] Comment on above: Performed By: #### P T, PTT #### [facility] [address] [place] [address] Dr. Tori Thomas Calcium [Mass/Vol] 9.1 mg/dL Normal 8.5-10.1 [facility] Comment on above: Performed By: #### P T, PTT #### [facility] [address] [place] [address] Dr. Tori Thomas Chloride [Moles/Vol] 104 mmol/L Normal 98-107 [facility] Comment on above: Performed By: #### P T, PTT #### [facility] [address] [place] [address] Dr. Tori Thomas CO2 [Moles/Vol] 23.0 mmol/L Normal 21.0-32.0 [facility] Comment on above: Performed By: #### P T, PTT #### [facility] [address] [place] [address] Dr. Toir Thomas Creatinine [Mass/Vol] 0.98 mg/dL Normal 0.55-1.02 [facility] Comment on above: Performed By: #### P T, PTT #### [facility] [address] [place] [address] Dr. Tori Thomas EGFR-AF MAURITIAN >60 Normal >=60 [facility] Comment on above: Performed By: #### P T, PTT #### [facility] [address] [place] [address] Dr. Tori Thomas EGFR-NON AF MAURITIAN >60 Normal >=60 [facility] Comment on above: Performed By: #### P T, PTT #### [facility] [address] [address] [address] Tori Thomas Glucose [Mass/Vol] 109 mg/dL Critically high 74-106 [facility] Comment on above: Performed By: #### P T, PTT #### [facility] [address] [place] [address] Dr. Tori Thomas Potassium [Moles/Vol] 3.7 mmol/L Normal 3.5-5.1 [facility] Comment on above: Performed By: #### P T, PTT #### [facility] [address] [address] [address] Tori Thomas Sodium [Moles/Vol] 137 mmol/L Normal 136-145 [facility] Comment on above: Performed By: #### P T, PTT #### [facility] [address] [place] [address] Dr. Tori Thomas Urea nitrogen [Mass/Vol] 12.0 mg/dL Normal 7.0-18.0 [facility] Comment on above: Performed By: #### P T, PTT #### [facility] [address] [place] [address] Dr. Tori Thomas Urea nitrogen/Creatinine [Mass ratio] 12.2 mg/mg Normal [facility] Comment on above: Performed By: #### P T, PTT #### [facility] [address] [place] [address] Dr. Tori Thomas PROTIMEon 01-06-2022 INR Coag (PPP) [Relative time] 0.94 {INR} Normal [facility] Comment on above: Performed By: #### P T, PTT #### [facility] [address] [place] [address] Dr. Tori Thomas INR GUIDELINES SEE BELOW Normal [facility] Comment on above: Result Comment: APRYL RED INR: 2.0 - 3.0 CONDITIONS NOT LISTED BELOW 2.5 - 3.5 FOR PROSTHETIC HEART VALVE REPLACEMENT 2.5 - 3.5 RECURRENT THROMBOSIS Performed By: #### P T, PTT #### [facility] [address] [place] [address] Dr. Tori Thomas PT Coag (PPP) [Time] 10.2 s Normal 9.0-11.6 [facility] Comment on above: Performed By: #### P T, PTT #### [facility] [address] [place], [place] [address] Dr. Tori Thomas PTTon 01-06-2022 aPTT Coag (Bld) [Time] 24.2 s Normal 22.3-36.2 [facility] Comment on above: Performed By: #### P T, PTT #### [facility] [address] [place], [place] [address] ABD/PELVIS WO CONon 12-23 CT ABD/PELVIS WO CON EXAMINATION: CT ABD /PELVIS WO CON, 12/22/2021 1:49 PM EDT HISTORY: Kidney stone COMPARISON: 11/14/2019 TECHNIQUE: CT scan of the abdomen and pelvis was performed without IV contrast. CT dose reduction technique was used, including Automated Exposure Control. FINDINGS: LUNG BASES: Focal opacity again demonstrated in the medial basilar segment of the right lower lobe, grossly stable. Chronic scar is suspected. LIVER: The liver is prominent in size. BILIARY: Surgical clips from cholecystectomy PANCREAS: No lesion, fluid collection, ductal dilatation, or atrophy. SPLEEN: No enlargement or focal lesion. ADRENALS: No mass or enlargement. KIDNEYS: Moderate asymmetric right renal atrophy. Hypodensities upper pole of the right kidney, parapelvic cysts are favored, stable. Multiple cortical calcifications lower pole of the right kidney, grossly stable. No hydronephrosis or obstructing nephrolithiasis. BOWEL/MESENTERY: Right lower quadrant small bowel surgical suture lines. Nonobstructive bowel gas pattern. AORTA/VASCULAR: No aneurysm or dissection. RETROPERITONEUM: No mass or adenopathy. LYMPH NODES: No adenopathy. URINARY BLADDER: No visible focal wall thickening, lesion, or calculus. PELVIC ORGANS: The uterus is prominent in size. Dilation of the endometrial cavity. The IUD is abnormally positioned along the lower uterine segment and cervix. ABDOMINAL WALL: No mass or hernia. BONES: No bony lesion or fracture. OTHER: Negative. IMPRESSION: No obstructive uropathy Stable right renal atrophy, parapelvic cysts and calcifications Abnormal position of the IUD along the lower uterine segment and cervix Electronically authenticated by: DEVYN DIETZ Date: 2021-12-23 08:35 Normal [facility] Vital Signs Date Time Vital Sign Value Performing Clinician Facility 10-06-2022 14:53-0400 Blood Pressure Location TISH KENDALL [facility] 10-06-2022 14:53-0400 Diastolic blood pressure 74 mm[Hg] TISH FAVIAN [facility] 10-06-2022 14:53-0400 Heart rate 68 /min TISHMARIELA HARVEYRY [facility] 10-06-2022 14:53-0400 Respiratory rate 16 /min TISH FAVIAN [facility] 10-06-2022 14:53-0400 Systolic blood pressure 120 mm[Hg] TISH HARVEYRY [facility] 10-01-2022 10:45-0400 65 1 Chandrika M Hoy Work Phone: [facility] [address] [place] Work Phone: Comment on above: [id number] 09-03-2022 13:10-0500 Body height 160.02 cm Chandrika M Hoy Work Phone: [facility] [place] Work Phone: 09-03-2022 13:10-0500 Body mass index (BMI) [Ratio] 22.85 kg/m2 Chandrika M Hoy Work Phone: [facility] DO Work Phone: 09-03-2022 13:10-0500 Body surface area Derived from formula 1.6 m2 Chandrika M Hoy Work Phone: [facility] DO Work Phone: 09-03-2022 13:10-0500 Body weight 58.51 kg Chandrika Holland Hoy Work Phone: [facility] DO Work Phone: 09-03-2022 13:10-0500 Diastolic blood pressure 60 mm[Hg] Chandrika Holland Hoy Work Phone: [facility] DO Work Phone: 09-03-2022 13:10-0500 Heart rate 82 /min Chandrika Holland Hoy Work Phone: [facility] DO Work Phone: 09-03-2022 13:10-0500 Systolic blood pressure 102 mm[Hg] Chandrika Holland Hoy Work Phone: [facility] DO Work Phone: 08-17-2022 14:55-0500 Diastolic blood pressure 78 mm[Hg] MD Chandrika Lee Work Phone: [facility] 08-17-2022 14:55-0500 Heart rate 77 /min MD Chandrika Lee Work Phone: [facility] 08-17-2022 14:55-0500 Respiratory rate 16 /min MD Chandrika Lee Work Phone: [facility] 08-17-2022 14:55-0500 SaO2% (BldA) [Mass fraction] 96 % MD Chandrika Lee Work Phone: [facility] 08-17-2022 14:55-0500 Systolic blood pressure 119 mm[Hg] MD Chandrika Lee Work Phone: [facility] 08-17-2022 12:57-0500 Body height 160.02 cm MD Chandrika Lee Work Phone: [facility] 08-17-2022 12:57-0500 Body mass index (BMI) [Ratio] 22.6 kg/m2 MD Chandrika Lee Work Phone: [facility] 08-17-2022 12:57-0500 Body weight 58.05 kg MD Chandrika Lee Work Phone: [facility] 08-17-2022 11:43-0500 Body temperature 98.7 [degF] MD Chandrika Lee Work Phone: [facility] 08-02-2022 15:15-0500 Diastolic blood pressure 55 mm[Hg] MD Chandrika Lee Work Phone: [facility] 08-02-2022 15:15-0500 Heart rate 96 /min MD Chandrika Lee Work Phone: [facility] 08-02-2022 15:15-0500 Respiratory rate 16 /min MD Chandrika Lee Work Phone: [facility] 08-02-2022 15:15-0500 SaO2% (BldA) [Mass fraction] 95 % MD Chandrika Lee Work Phone: [facility] 08-02-2022 15:15-0500 Systolic blood pressure 100 mm[Hg] MD Chandrika Lee Work Phone: [facility] 08-02-2022 14:33-0500 Body mass index (BMI) [Ratio] 24.5 kg/m2 MD Chandrika Lee Work Phone: [facility] 08-02-2022 11:15-0500 Body height 160.02 cm MD Chandrika Lee Work Phone: [facility] 08-02-2022 11:15-0500 Body weight 63 kg MD Chandrika Lee Work Phone: [facility] 08-02-2022 10:21-0500 Body temperature 97.9 [degF] MD Chandrika Lee Work Phone: [facility] 07-26-2022 11:06-0500 Diastolic blood pressure 64 mm[Hg] Chandrika Lee Work Phone: [facility] [address] DO Work Phone: 07-26-2022 11:06-0500 Systolic blood pressure 100 mm[Hg] Chandrika Amalia Hoy Work Phone: [facility] [address] DO Work Phone: 07-26-2022 11:05-0500 Body height 160.02 cm Chandrika M Hoy Work Phone: [facility] [address] DO Work Phone: 07-26-2022 11:05-0500 Body mass index (BMI) [Ratio] 24.93 kg/m2 Chandrika Amalia Hoy Work Phone: [facility] [address] DO Work Phone: 07-26-2022 11:05-0500 Body surface area Derived from formula 1.67 m2 Chandrika Amalia Hoy Work Phone: [facility] [address] DO Work Phone: 07-26-2022 11:05-0500 Body weight 63.84 kg Chandrika Holland Hoy Work Phone: [facility] [address] DO Work Phone: 07-26-2022 11:05-0500 Diastolic blood pressure 70 mm[Hg] Chandrika Amalia Hoy Work Phone: [facility] DO Work Phone: 07-26-2022 11:05-0500 Heart rate 50 /min Chandrika Amalia Hoy Work Phone: [facility] DO Work Phone: 07-26-2022 11:05-0500 Systolic blood pressure 104 mm[Hg] Chandrika Amalia Hoy Work Phone: [facility] [address] DO Work Phone: 06-14-2022 16:09-0500 Diastolic blood pressure 61 mm[Hg] MD Chandrika Hoy Work Phone: [facility] 12-19-2022 16:09-0500 Heart rate 79 /min MD Chandrika Lee Work Phone: [facility] 06-14-2022 16:09-0500 Respiratory rate 16 /min MD Chandrika Lee Work Phone: [facility] 06-14-2022 16:09-0500 SaO2% (BldA) [Mass fraction] 97 % MD Chandrika Lee Work Phone: [facility] 06-14-2022 16:09-0500 Systolic blood pressure 119 mm[Hg] MD Chandrika Lee Work Phone: [facility] 06-14-2022 13:41-0500 Body height 160.02 cm MD Chandrika Lee Work Phone: [facility] 06-14-2022 13:41-0500 Body temperature 97.9 [degF] MD Chandrika Lee Work Phone: [facility] 06-14-2022 13:41-0500 Body weight 61.23 kg MD Chandrika Lee Work Phone: [facility] 06-05-2022 04:08-0500 Body temperature 97.9 [degF] MD Chandrika Lee Work Phone: [facility] 06-05-2022 04:08-0500 Diastolic blood pressure 66 mm[Hg] MD Chandrika Lee Work Phone: [facility] 06-05-2022 04:08-0500 Heart rate 77 /min MD Chandrika Lee Work Phone: [facility] 06-05-2022 04:08-0500 Respiratory rate 18 /min MD Chandrika Lee Work Phone: [facility] 06-05-2022 04:08-0500 SaO2% (BldA) [Mass fraction] 96 % MD Chandrika Lee Work Phone: [facility] 06-05-2022 04:08-0500 Systolic blood pressure 123 mm[Hg] MD Chandrika Lee Work Phone: [facility] 05-30-2022 14:33-0500 Body temperature 98.3 [degF] MD Chandrika Lee Work Phone: [facility] 05-30-2022 14:33-0500 Diastolic blood pressure 72 mm[Hg] MD Chandrika Lee Work Phone: [facility] 05-30-2022 14:33-0500 Heart rate 93 /min MD Chandrika Lee Work Phone: [facility] 05-30-2022 14:33-0500 Respiratory rate 18 /min MD Chandrika Lee Work Phone: [facility] 05-30-2022 14:33-0500 SaO2% (BldA) [Mass fraction] 97 % MD Chandrika Lee Work Phone: [facility] 05-30-2022 14:33-0500 Systolic blood pressure 114 mm[Hg] MD Chandrika eLe Work Phone: [facility] 05-30-2022 11:29-0500 Body height 160.02 cm MD Chandrika Lee Work Phone: [facility] 05-30-2022 11:29-0500 Body weight 58 kg MD Chandrika Lee Work Phone: [facility] 05-12-2022 16:00-0500 Diastolic blood pressure 64 mm[Hg] MD Chandrika Lee Work Phone: [facility] 05-12-2022 16:00-0500 Heart rate 89 /min MD Chandrika Lee Work Phone: [facility] 05-12-2022 16:00-0500 Respiratory rate 18 /min MD Chandrika Lee Work Phone: [facility] 05-12-2022 16:00-0500 SaO2% (BldA) [Mass fraction] 97 % MD Chandrika Lee Work Phone: [facility] 05-12-2022 16:00-0500 Systolic blood pressure 118 mm[Hg] MD Chandrika Lee Work Phone: [facility] 05-11-2022 20:00-0500 Body temperature 97.6 [degF] MD Chandrika Lee Work Phone: [facility] 05-11-2022 05:52-0500 Body weight 57.9 kg MD Chandrika Lee Work Phone: [facility] 05-10-2022 12:05-0500 Body height 160.02 cm MD Chandrika Lee Work Phone: [facility] 04-05-2022 08:28-0400 Body temperature 97.9 [degF] MD Chandrika Lee Work Phone: [facility] 04-05-2022 08:28-0400 Diastolic blood pressure 58 mm[Hg] MD Chandrika Lee Work Phone: [facility] 04-05-2022 08:28-0400 Heart rate 79 /min MD Chandrika Lee Work Phone: [facility] 04-05-2022 08:28-0400 Respiratory rate 18 /min MD Chandrika Lee Work Phone: [facility] 04-05-2022 08:28-0400 SaO2% (BldA) [Mass fraction] 99 % MD Chandrika Lee Work Phone: [facility] 04-05-2022 08:28-0400 Systolic blood pressure 93 mm[Hg] MD Chandrika Lee Work Phone: [facility] 04-02-2022 11:24-0400 Body temperature 98.8 [degF] MD Chandrika Lee Work Phone: [facility] 04-02-2022 11:24-0400 Diastolic blood pressure 58 mm[Hg] MD Chandrika Lee Work Phone: [facility] 04-02-2022 11:24-0400 Heart rate 71 /min MD Chandrika Lee Work Phone: [facility] 04-02-2022 11:24-0400 Respiratory rate 18 /min MD Chandrika Lee Work Phone: [facility] 04-02-2022 11:24-0400 SaO2% (BldA) [Mass fraction] 98 % MD Chandrika Lee Work Phone: [facility] 04-02-2022 11:24-0400 Systolic blood pressure 95 mm[Hg] MD Chandrika Lee Work Phone: [facility] 04-02-2022 06:00-0400 Body weight 58.7 kg MD Chandrika Lee Work Phone: [facility] 04-01-2022 10:15-0400 Body height 157.48 cm MD Chandrika Lee Work Phone: [facility] 03-31-2022 14:00-0400 Diastolic blood pressure 62 mm[Hg] MD hCandrika Lee Work Phone: [facility] 03-31-2022 14:00-0400 Heart rate 87 /min MD Chandrika Lee Work Phone: [facility] 03-31-2022 14:00-0400 Respiratory rate 18 /min MD Chandrika Lee Work Phone: [facility] 03-31-2022 14:00-0400 SaO2% (BldA) [Mass fraction] 100 % MD Chandrika Lee Work Phone: [facility] 03-31-2022 14:00-0400 Systolic blood pressure 117 mm[Hg] MD Chandrika Lee Work Phone: [facility] 03-31-2022 11:17-0400 Body height 157.48 cm MD Chandrika Lee Work Phone: [facility] 03-31-2022 11:17-0400 Body temperature 98.1 [degF] MD Chandrika Lee Work Phone: [facility] 03-31-2022 11:17-0400 Body weight 58.96 kg MD Chandrika Lee Work Phone: [facility] 03-27-2022 15:41-0400 Diastolic blood pressure 70 mm[Hg] MD Chandrika Lee Work Phone: [facility] 03-27-2022 15:41-0400 Heart rate 84 /min MD Chandrika Lee Work Phone: [facility] 03-27-2022 15:41-0400 Respiratory rate 16 /min MD Chandrika Lee Work Phone: [facility] 03-27-2022 15:41-0400 SaO2% (BldA) [Mass fraction] 98 % MD Chandrika Lee Work Phone: [facility] 03-27-2022 15:41-0400 Systolic blood pressure 119 mm[Hg] MD Chandrika Lee Work Phone: [facility] 03-27-2022 11:37-0400 Body height 157.48 cm MD Chandrika Lee Work Phone: [facility] 03-27-2022 11:37-0400 Body temperature 98.2 [degF] MD Chandrika Lee Work Phone: [facility] 03-27-2022 11:37-0400 Body weight 58.96 kg MD Chandrika Lee Work Phone: [facility] 12-08-2021 10:58-0400 Blood Pressure Location TISHNIKUNJ KENDALL [facility] [place] 12-08-2021 10:58-0400 Diastolic blood pressure 82 mm[Hg] TISH FAVIAN [facility] 12-08-2021 10:58-0400 Heart rate 81 /min TISH HARVEYRY [facility] 12-08-2021 10:58-0400 Systolic blood pressure 103 mm[Hg] TISH KENDALL [facility] Encounters Encounter Date Encounter Type Care Provider Facility Start: 06-03-2023 End: 06-04-2023 ambulatory Van SCHRADER Facility:CD:[id number] Start: 05-23-2023 End: 05-24-2023 ambulatory Van SCHRADER Facility:CD:[id number] Start: 05-10-2023 End: 05-11-2023 ambulatory PA-C TISH KENDALL Facility:[facility] Start: 04-12-2023 End: 04-13-2023 ambulatory PA-C TISH KENDALL Facility:[facility] Start: 04-12-2023 End: 04-12-2023 Patient encounter procedure TISH KENDALL [facility] [place] Start: 11-15-2022 End: 11-16-2022 Emergency department patient visit Chandrika Lee Facility:[facility] Start: 11-15-2022 End: 11-15-[address] CHANDRIKA LEE . Facility: Start: 10-11-2022 Chart Update Chandrika Lee Work Phone: [facility] 250 DO Work Phone: Start: 10-06-2022 End: 10-07-2022 ambulatory PA-C TISH KENDALL Facility:[facility] [place] Start: 10-06-2022 End: 10-06-2022 Patient encounter procedure TISH KENDALL [facility] Start: 10-01-2022 Patient encounter procedure Chandrika Lee Work Phone: [facility] [address] [place] Work Phone: Start: 10-01-2022 ambulatory PERLITA LAWRENCE Facility:[id number] Start: 09-06-2022 End: 09-07-2022 ambulatory Van SCHRADER Facility:[facility] [place] Start: 09-06-2022 End: 09-06-2022 Patient encounter procedure Van Burroughs SCHRADER [facility] [place] Start: 09-03-2022 Office outpatient vi sit 15 minutes Chandrika Lee Work Phone: [facility] DO Work Phone: Start: 09-03-2022 ambulatory Perlita Lawrence Facility:[id number] Start: 08-17-2022 End: 08-17-2022 ambulatory Chandrika Lee Facility:[facility] Start: 08-17-2022 End: 08-17-2022 Admission to same day surgery center [facility] [place] Start: 08-17-2022 End: 08-17-2022 ambulatory MD Chandrika Lee Work Phone: [facility] Work Phone: Start: 08-11-2022 End: 08-12-[address] CHANDRIKA LEE . Facility: Start: 08-02-2022 End: 08-02-2022 ambulatory Carter Lewis Facility:[facility] Start: 08-02-2022 End: 08-02-2022 Admission to same day surgery center MD Chandrika Lee [facility] [place] Start: 08-02-2022 End: 08-02-2022 ambulatory MD Chandrika Lee Work Phone: [facility] Work Phone: Start: 07-26-2022 Patient encounter procedure Chandrika Lee Work Phone: [facility] [address] DO Work Phone: Start: 07-26-2022 ambulatory Perlita Lawrence Facility:[id number] Start: 07-19-2022 End: 07-19-2022 ambulatory Carter Lewis Facility:[facility] Start: 07-19-2022 End: 07-19-2022 ambulatory MD Chandrika Lee Work Phone: [facility] Work Phone: Start: 07-19-2022 End: 07-19-2022 Patient encounter procedure MD Chandrika Lee Work Phone: [facility] Work Phone: Start: 06-14-2022 End: 06-14-2022 ambulatory Be Azul Facility:[facility] Start: 06-14-2022 End: 06-14-2022 Admission to same day surgery center MD Chandrika Lee Work Phone: [facility]Dig[facility] Start: 06-14-2022 End: 06-14-2022 ambulatory MD Chandrika Lee Work Phone: [facility] Work Phone: Start: 06-05-2022 End: 06-05-2022 ambulatory Chandrika Lee Facility:[facility] Start: 06-05-2022 End: 06-05-2022 Discharged Recurring MD Chandrika Lee Work Phone: [facility]-Infusion Therapy - O/P Start: 06-04-2022 End: 06-27-[address] CHANDRIKA ELE . Facility: Start: 05-30-2022 End: 05-30-2022 Emergency department patient visit Chandrika Lee Facility:[facility] Start: 05-30-2022 End: 05-30-2022 Emergency department patient visit MD Chandrika Lee Work Phone: [facility]-Emergency Room Start: 05-09-2022 End: 05-12-2022 Evaluation and management of inpatient Jessica Akhtar Facility:[facility] Start: 05-09-2022 End: 05-12-2022 Evaluation and management of inpatient MD Chandrika Lee Work Phone: [facility]-3 [facility] Med Surg Start: 04-29-2022 End: 04-29-2022 Patient encounter procedure TISH KENDALL [facility] Start: 04-16-2022 End: 04-17-[address] CHANDRIKA LEE . Facility:[facility] Start: 04-06-2022 End: 04-06-2022 ambulatory Jessica Semaskiene Facility:[facility] Start: 04-06-2022 End: 04-06-2022 ambulatory MD Chandrika Lee Work Phone: [facility] Work Phone: Start: 04-06-2022 End: 04-06-2022 Discharged Recurring MD Chandrika Lee Work Phone: [facility]-Infusion Therapy - O/P Start: 03-31-2022 End: 04-02-2022 ambulatory Jessica Semaskiene Facility:[facility] Start: 03-31-2022 End: 04-02-2022 Evaluation and management of inpatient MD Chandrika Lee Work Phone: [facility]-4 [facility] Surgical Start: 03-27-2022 End: 03-27-2022 Emergency department patient visit Chandrika Lee Facility:[facility] Start: 03-27-2022 End: 03-27-2022 Emergency department patient visit MD Chandrika Lee Work Phone: [facility]-Emergency Room Start: 02-17-[address] CHANDRIKA LEE . Facili ty:[facility]1 Start: 02-16-2022 End: 02-17-[address] CHANDRIKA LEE . Facility:[facility] Start: 01-07-2022 Encounter for preprocedural cardiovascular examination DR VAN SCHRADER . [facility] Start: 01-07-2022 Encounter for preprocedural laboratory examination DR VAN SCHRADER . [facility] Start: 01-07-2022 End: 01-07-[address] CHANDRIKA LEE . Facility:[facility] Start: 01-06-2022 End: 01-07-[address] VAN SCHRADER . Facility:[facility] Start: 01-06-2022 End: 01-07-2022 Encounter for preprocedural cardiovascular examination DR VAN SCHRADER . Facility:[facility] Start: 12-22-2021 End: 12-23-[address] DEVYN DIETZ Facility:[facility] Start: 12-14-2021 ambulatory TISH KENDALL Facility :[facility] Start: 12-08-2021 End: 12-08-2021 Patient encounter procedure TISH Grijalva FAVIAN [facility] Start: 05-31-2013 End: 05-31-2013 Telephone encounter Praveena (Rn)(Hist) [facility] [place] Comment on above: (apts) Patient encounter status Chandrika Lee Work Phone: [facility] [address] DO Work Phone: Procedures Date Procedure Procedure Detail Performing Clinician Start: 10-01-2022 Echocardiography Liseth Lee Work Phone: Start: 08-17-2022 Hemorrhoidectomy MD Rabia Lee Work Phone: Start: 08-02-2022 Hemorrhoidectomy MD Rabia Lee Work Phone: Start: 06-14-2022 Colonoscopy MD Chandrika Lee Work Phone: Start: 06-04-2022 Antibody screen Jessica stewart Comment on above: Result Comment: PERF ORMED BY: [facility] [address] [place] [place] [address] PATHOLOGIST [employer]ALL [employer]SEM[employer]ER RADHA GARCIA M.D. Start: 05-30-2022 Urine culture MD Liseth Lee Work Phone: Start: 05-30-2022 CT of abdomen and pe lvis without contrast MD Chandrika Lee Work Phone: Start: 05-11-2022 Transvaginal echography MD Chandrika Lee Work Phone: Start: 05-11-2022 Pelvic echography MD Arriaga Work Phone: Start: 05-10-2022 Stool culture for bacteria MD Chandrika Lee Work Phone: Start: 05-09-2022 Antibody screen Jessica Se stewart Comment on above: Order Comment: Trans fuse now? Y Number of units to transfuse now? 2 Result Comment: PERF ORMED BY: [facility] [address] [place] [address] PATHOLOGIST [employer] ASSEM[employer]ER RADHA GARCIA M.D. Start: 05-09-2022 Urine culture MD Liseth Lee Work Phone: Start: 03-31-2022 Antibody screen Jessica steawrt Comment on above: Order Comment: Trans fuse now? Y Number of units to transfuse now? 1 Result Comment: PERF ORMED BY: [facility] [address] [place] [address] PATHOLOGIST [employer] ASSEM[employer]ER RADHA GARCIA M.D. Start: 03-27-2022 Antibody screen Jessica stewart Comment on above: Result Comment: PERF ORMED BY: [facility] [address] [place] [address] PATHOLOGIST BALL ASSEM[employer]ER RADHA GARCIA M.D. Start: 03-27-2022 Computed tomography of abdomen and pelvis with contrast MD Chandrika Lee Work Phone: Start: 01-07-2022 Extracorporeal shock wave lithotripsy of calculus of kidney TISH KENDALL Start: 04-09-2021 Extracorporeal shock wave lithotripsy of calculus of kidney TISH KENDALL Start: 02-17-2021 Cystoscope, device ( physical object) TISH KENDALL Start: 02-17-2021 Cystoscopic removal of ureteric stent TISH KENDALL Start: 01-19-2021 Cystoscopic insertio n of ureteric stent TISH KENDALL section Chandrika [facility] Work Phone: Cholecystectomy TISH RUIZ Cholecystectomy Chandrika [facility] Work Phone: Colonoscopy TISH KENDALL Hemorrhoidectomy Chandrika Holland [facility] Work Phone: Hemorrhoids (disorder) VERA KENDALL Lithotripsy Chandrika Holland [place] Work Phone: SARS Antigen (LFIA) MD Rachel antoine Hoy Work Phone: Small intestine excision Rabia glas Amalia Hoy Work Phone: Stool culture for bacteria M D Chandrika Hoy Work Phone: Stool culture for bacteria M D Chandrika Hoy Work Phone: Total colonoscopy Chandrika Holland Hoy Work Phone: Comment on above: 2021; Urine culture MD Cobos Gaganderik Work Phone: Urine culture MD Chandrika Lee Work Phone: Urine culture MD Chandrika Lee Work Phone: Urine culture MD Cobos Gaganderik Work Phone: Plan of Treatment Date Care Activity Detail Author Start: 10-01-2022 ECHO, Provider: GUERDA GATES ULTRASOUND 01,[id number], Status: Pen, Time: 10:45 AM ECHO, Provider: GUERDA MITCHELLI ULTRASOUND 01,[id number], Status: Pen, Time: 10:45 AM [facility] 250 DO Work Phone: Start: 08-30-2022 FUV, Provider: Perlita Lawrence, Status: Pen, Time: 3:15 PM FUV, Provider: Perlita Lawrence, Status: Pen, Time: 3:15 PM [facility] DO Work Phone: Start: 08-17-2022 End: 08-17-2022 [facility] Start: 08-02-2022 [facility] Start: 08-02-2022 [facility] Start: 06-14-2022 [facility] Start: 05-12-2022 [facility] Start: 05-11-2022 Referral to broadcast correspondent [facility] Start: 05-09-2022 Administration of prophylactic treatment [facility] Start: 05-09-2022 Hospital admission [facility] Start: 05-09-2022 Referral to broadcast correspondent [facility] Start: 05-09-2022 Inspection of Lower Intestinal Tract, Via Natural or Artificial Opening Endoscopic Inspection of Lower Intestinal Tract, Via Natural or Artificial Opening Endoscopic [facility] Start: 04-02-2022 [facility] Start: 04-01-2022 Administration of prophylactic treatment [facility] Start: 04-01-2022 Comprehensive metabolic 2000 panel - Serum or Plasma [facility] Start: 04-01-2022 End: 04-01-2022 [facility] Start: 03-31-2022 End: 03-31-2022 [facility] Start: 03-31-2022 Magnesium measurement [facility] Start: 03-31-2022 Referral to broadcast correspondent [facility] Start: 03-31-2022 Hospital admission [facility] Start: 03-31-2022 End: 04-01-2022 [facility] Start: 02-25-2021 Influenza vaccination INFLUENZA (Season Ended) [facility] Start: 2017 HPV TESTING HPV TESTING [facility] Start: 2008 PAP TESTING PAP TESTING [facility] Start: 2006 Urine microalbumin profile DTAP,TDAP,TD (1 - Tdap) [facility] Start: 2005 HEPATITIS C SCREENING HEPATITIS C SCREENING [facility] Start: 1999 Adult depression screening assessment DEPRESSION SCREENING [facility] Bacteria identified in Stool by Culture [facility] Work Phone: Bacteria identified in Urine by Culture [facility] [facility] Bacterial cytolethal distending toxin cdt gene [Presence] in Unspecified specimen by SARABJIT with probe detection [facility] Work Phone: Ferritin [Mass/volum e] in Serum or Plasma [facility] Work Phone: Folate [Mass/volume] in Serum or Plasma [facility] Work Phone: Hematocrit [Volume F raction] of Blood [facility] Work Phone: Hemoglobin [Mass/vol ume] in Blood [facility] Work Phone: Hemoglobin.gastroint estinal [Presence] in Stool [facility] Work Phone: Iron [Mass/volume] i n Serum or Plasma [facility] Work Phone: Iron binding capacit y [Mass/volume] in Serum or Plasma [facility] Work Phone: Iron saturation [Mas s Fraction] in Serum or Plasma [facility] Work Phone: Lactoferrin [Presenc e] in Stool [facility] Work Phone: Magnesium measurement [facility] Work Phone: Patient Education [facility] Work Phone: Patient referral [facility] Work Phone: Stool Lactoferrin Stool Lactoferrin [facility] Stool Occult Blood (DIVYA) Stool O ccult Blood (DIVYA) [facility] Transferrin measurement [facility] Work Phone: Vitamin B12 measurement [facility] Work Phone: Immunizations Immunization Date Immunization Notes Care Provider Rosa crenshaw 05-04-2022 influenza, seasonal, injectable Chandrika eLe Work Phone: [facility] [employer] 250 DO Work Phone: Comment on above: Series: 06-17-2021 influenza virus vacc ine, unspecified formulation Chandrika Lee Work Phone: [facility] [employer] 250 DO Work Phone: 08-20-2020 COVID-19 Lisseth Abad ([employer]) MD Chandrika Lee Work Phone: [facility] 08-20-2020 SARS-CoV-2 (COVID-19 ) Ad26 vaccine, recombinant TISH KENDALL [facility] 07-09-2020 COVID-19 mRNA, Lisseth ness (Pfizer) MD Chandrika Lee Work Phone: [facility] 07-09-2020 SARS-CoV-2 (COVID-19 ) Ad26 vaccine, recombinant TISH KENDALL [facility] 07-04-2020 Pfizer-BioNTMD2U COVI D-19 Vacc 30 MCG/0.3ML Intramuscular Suspension Chandrika Holland [employer] Work Phone: [facility] 250 DO Work Phone: 08-13-1999 measles, mumps and rubella virus vaccine Chandrika Lee Work Phone: [facility] 250 DO Work Phone: Payers Date Payer Category Payer Medicaid [id number] 2022 Self-pay [id number] 2013 Unknown MMO MMO SUPERMED PLUS [id number] 2013-Present PPO [id number]. [id number] 1987 Unknown [id number] .840.1.375138.3.579.2.356 1987 Unknown [id number] 840.1.986500.3.579.2.356 1987 Unknown [id number] 2.16.840.1.728779.3.579.2.1068 1987 Unknown [id number] 2.16.840.1.406378.3.579.2.593 1987 Unknown [id number] 2.16.840.1.547257.3.579.2.593 1987 Unknown [id number] 2.16.840.1.808448.3.579.2.593 1987 Unknown [id number] 2.16.840.1.554042.3.579.2.593 1987 Unknown [id number] 2.16.840.1.125781.3.579.2.593 1987 Unknown [id number] 2.16.840.1.149089.3.579.2.593 1987 Unknown [id number] 2.16.840.1.958643.3.579.2.593 1987 Unknown [id number] 2.16.840.1.933960.3.579.2.593 1987 Unknown [id number] 2.16.840.1.848124.3.579.2.593 1987 Unknown [id number] 2.16.840.1.316084.3.579.2.593 1987 Unknown [id number] 2.16.840.1.246996.3.579.2.727 1987 Unknown [id number] 2.16.840.1.162770.3.579.2.727 1987 Unknown [id number] 2.16.840.1.099569.3.579.2.727 1987 Unknown [id number] 2.16.840.1.570029.3.579.2.727 1987 Unknown [id number] 2.16.840.1.637583.3.579.2.727 1987 Unknown [id number] 840.1.943612.3.579.2.727 1987 Unknown [id number] 2.0.1.889122.3.579.2.727 1959 Self-pay [id number] 1959 Unknown [id number] Medicaid [employer] [id number] Unknown [id number] Unknown Unknown [id number] 840.1.259269.3.579.2.531 Unknown [id number] 840.1.391994.3.579.2.531 Unknown [id number] 840.1.067339.3.579.2.531 Unknown [id number] 08.12.830.1.622392.3.579.2.531 Unknown 840.1.450896.3.579.2.531 Unknown 840.1.533486.3.579.2.531 Unknown 840.1.560175.3.579.2.531 Unknown [id number] 2.16.840.1.785064.3.579.2.531 Unknown [id number] 840.1.081471.3.579.2.531 Unknown [id number] 08.12.830.1.240595.3.579.2.531 Unknown [id number] 840.1.556020.3.579.2.531 Social History Date Type Detail Facility Tobacco smoking stat [facility] Unknown if ever smoked [facility] Start: 1985 Sex Assigned At Not on file [facility] Start: 12-08-2021 End: 10-06-2022 Tobacco smoking status Never smoked tobacco (finding) [facility] Tobacco smoking status Never [facility] Sex Assigned At Female [facility] Start: 1985 Sex Assigned At Female F [facility] Start: 05-30-2022 End: 06-14-2022 Tobacco smoking status NHIS Ex-smoker (finding) [facility] Never a smoker Never a smoker [facility] 250 DO Work Phone: Comment on above: 1 decaf coffee daily ; Medical Equipment Procedure Code Equipment Code Equipment Origin al Text Equipment Identifier Dates Polymeric ureter al stent [id number] [facility] Start: 01-19-2021 Goals Date Patient Goal Desired Activity /State Functional Status Date Assessment Result Facility 10-06-2022 Functional Status N/A [facility] 05-12-2022 Functional status Patient at Baseline [facility] Work Phone: 04-02-2022 Functional status Patient at Baseline [facility] Work Phone: 12-08-2021 Functional Status N/A [facility] Mental Status Date Assessment Result Facility 05-12-2022 Cognitive function Cognitive Sta tus Patient at Baseline [facility] Work Phone: 04-02-2022 Cognitive function Cognitive Sta tus Patient at Baseline [facility] Work Phone: Clinical Notes 05-27-2003 to 10-06-2022 Note Date & Type Note Facility 10-06-2022 Hospital Discharg e instructions Follow Up Care 10/06/2022 15:26:31 With:FAVIAN TY, TISH E, URL Address: [address] [address] [id number] When: Unknown [facility] 10-06-2022 Hospital Discharg e instructions Patient Education 10/06/2022 15:03:54 Kidney Stones, Ihfh-mv-Dqat Kidney Stones Kidney stones are rock-like masses that form inside of the kidneys. Kidneys are organs that make pee (urine). A kidney stone may move into other parts of the urinary tract, including: The tubes that connect the kidneys to the bladder (ureters). The bladder. The tube that carries urine out of the body (urethra). Kidney stones can cause very bad pain and can block the flow of pee. The stone usually leaves your body (passes) through your pee. You may need to have a doctor take out the stone. What are the causes? Kidney stones may be caused by: A condition in which certain glands make too much parathyroid hormone (primary hyperparathyroidism). A buildup of a type of crystals in the bladder made of a chemical called uric acid. The body makes uric acid when you eat certain foods. Narrowing (stricture) of one or both of the ureters. A kidney blockage that you were born with. Past surgery on the kidney or the ureters, such as gastric bypass surgery. What increases the risk? You are more likely to develop this condition if: You have had a kidney stone in the past. You have a family history of kidney stones. You do not drink enough water. You eat a diet that is high in protein, salt (sodium), or sugar. You are overweight or very overweight (obese). What are the signs or symptoms? Symptoms of a kidney stone may include: Pain in the side of the belly, right below the ribs (flank pain). Pain usually spreads (radiates) to the groin. Needing to pee often or right away (urgently). Pain when going pee (urinating). Blood in your pee (hematuria). Feeling like you may vomit (nauseous). Vomiting. Fever and chills. How is this treated? Treatment depends on the size, location, and makeup of the kidney stones. The stones will often pass out of the body through peeing. You may need to: Drink more fluid to help pass the stone. In some cases, you may be given fluids through an IV tube put into one of your veins at the hospital. Take medicine for pain. Make changes in your diet to help keep kidney stones from coming back. Sometimes, medical procedures are needed to remove a kidney stone. This may involve: A procedure to break up kidney stones using a beam of light (laser) or shock waves. Surgery to remove the kidney stones. Follow these instructions at home: Medicines Take uobl-jyq-aicyjqw and prescription medicines only as told by your doctor. Ask your doctor if the medicine prescribed to you requires you to avoid driving or using heavy machinery. Eating and drinking Drink enough fluid to keep your pee pale yellow. You may be told to drink at least 8 10 glasses of water each day. This will help you pass the stone. If told by your doctor, change your diet. This may include: ?Limiting how much salt you eat. ?Eating more fruits and vegetables. ?Limiting how much meat, poultry, fish, and eggs you eat. Follow instructions from your doctor about eating or drinking restrictions. General instructions Collect pee samples as told by your doctor. You may need to collect a pee sample: ?24 hours after a stone comes out. ?8 12 weeks after a stone comes out, and every 6 12 months after that. Strain your pee every time you pee (urinate), for as long as told. Use the strainer that your doctor recommends. Do not throw out the stone. Keep it so that it can be tested by your doctor. Keep all follow-up visits as told by your doctor. This is important. You may need follow-up tests. How is this prevented? To prevent another kidney stone: Drink enough fluid to keep your pee pale yellow. This is the best way to prevent kidney stones. Eat healthy foods. Avoid certain foods as told by your doctor. You may be told to eat less protein. Stay at a healthy weight. Where to find more information National Kidney Foundation (NKF): www.kidney.org Urology Care Foundation (UCF): www.urologyhealth.org Contact a doctor if: You have pain that gets worse or does not get better with medicine. Get help right away if: You have a fever or chills. You get very bad pain. You get new pain in your belly (abdomen). You pass out (faint). You cannot pee. Summary Kidney stones are rock-like masses that form inside of the kidneys. Kidney stones can cause very bad pain and can block the flow of pee. The stones will often pass out of the body through peeing. Drink enough fluid to keep your pee pale yellow. This information is not intended to replace advice given to you by your health care provider. Make sure you discuss any questions you have with your health care provider. Document Released: 11/29/2008 Document Revised: 10/30/2019 Document Reviewed: 10/30/2019 [employer] Patient Education 2020 Med[employer]acs. Follow Up Care 09/06/2022 11:18:28 With:FAVIAN TY, TISH Grijalva, URL Address: [address] [place] [id number] When:04/07/2023 Comments:JULIO CESAR [facility] 09-06-2022 Hospital Discharg e instructions Patient Education 09/06/2022 08:16:42 Dietary Guidelines to Help Prevent Kidney Stones Dietary Guidelines to Help Prevent Kidney Stones Kidney stones are deposits of minerals and salts that form inside your kidneys. Your risk of developing kidney stones may be greater depending on your diet, your lifestyle, the medicines you take, and whether you have certain medical conditions. Most people can reduce their chances of developing kidney stones by following the instructions below. Depending on your overall health and the type of kidney stones you tend to develop, your dietitian may give you more specific instructions. What are tips for following this plan? Reading food labels Choose foods with no salt added or low-salt labels. Limit your sodium intake to less than 1500 mg per day. Choose foods with calcium for each meal and snack. Try to eat about 300 mg of calcium at each meal. Foods that contain 200 500 mg of calcium per serving include: ?8 oz (237 ml) of milk, fortified nondairy milk, and fortified fruit juice. ?8 oz (237 ml) of kefir, yogurt, and soy yogurt. ?4 oz (118 ml) of tofu. ?1 oz of cheese. ?1 cup (300 g) of dried figs. ?1 cup (91 g) of cooked broccoli. ?1 3 oz can of sardines or mackerel. Most people need 1000 to 1500 mg of calcium each day. Talk to your dietitian about how much calcium is recommended for you. Shopping Buy plenty of fresh fruits and vegetables. Most people do not need to avoid fruits and vegetables, even if they contain nutrients that may contribute to kidney stones. When shopping for convenience foods, choose: ?Whole pieces of fruit. ?Premade salads with dressing on the side. ?Low-fat fruit and yogurt smoothies. Avoid buying frozen meals or prepared deli foods. Look for foods with live cultures, such as yogurt and kefir. Cooking Do not add salt to food when cooking. Place a salt shaker on the table and allow each person to add his or her own salt to taste. Use vegetable protein, such as beans, textured vegetable protein (TVP), or tofu instead of meat in pasta, casseroles, and soups. Meal planning Eat less salt, if told by your dietitian. To do this: ?Avoid eating processed or premade food. ?Avoid eating fast food. Eat less animal protein, including cheese, meat, poultry, or fish, if told by your dietitian. To do this: ?Limit the number of times you have meat, poultry, fish, or cheese each week. Eat a diet free of meat at least 2 days a week. ?Eat only one serving each day of meat, poultry, fish, or seafood. ?When you prepare animal protein, cut pieces into small portion sizes. For most meat and fish, one serving is about the size of one deck of cards. Eat at least 5 servings of fresh fruits and vegetables each day. To do this: ?Keep fruits and vegetables on hand for snacks. ?Eat 1 piece of fruit or a handful of berries with breakfast. ?Have a salad and fruit at lunch. ?Have two kinds of vegetables at dinner. Limit foods that are high in a substance called oxalate. These include: ?Spinach. ?Rhubarb. ?Beets. ?Potato chips and sudanese fries. ?Nuts. If you regularly take a diuretic medicine, make sure to eat at least 1 2 fruits or vegetables high in potassium each day. These include: ?Avocado. ?Banana. ?Larue, prune, carrot, or tomato juice. ?Baked potato. ?Cabbage. ?Beans and split peas. General instructions Drink enough fluid to keep your urine clear or pale yellow. This is the most important thing you can do. Talk to your health care provider and dietitian about taking daily supplements. Depending on your health and the cause of your kidney stones, you may be advised: ?Not to take supplements with vitamin C. ?To take a calcium supplement. ?To take a daily probiotic supplement. ?To take other supplements such as magnesium, fish oil, or vitamin B6. Take all medicines and supplements as told by your health care provider. Limit alcohol intake to no more than 1 drink a day for non women and 2 drinks a day for men. One drink equals 12 oz of beer, 5 oz of wine, or 1 oz of hard liquor. Lose weight if told by your health care provider. Work with your dietitian to find strategies and an eating plan that works best for you. What foods are not recommended? Limit your intake of the following foods, or as told by your dietitian. Talk to your dietitian about specific foods you should avoid based on the type of kidney stones and your overall health. Grains Breads. Bagels. Rolls. Baked goods. Salted crackers. Cereal. Pasta. Vegetables Spinach. Rhubarb. Beets. Canned vegetables. Pickles. Olives. Meats and other protein foods Nuts. Nut butters. Large portions of meat, poultry, or fish. Salted or cured meats. Deli meats. Hot dogs. Sausages. Dairy Cheese. Beverages Regular soft drinks. Regular vegetable juice. Seasonings and other foods Seasoning blends with salt. Salad dressings. Canned soups. Soy sauce. Ketchup. Barbecue sauce. Canned pasta sauce. Casseroles. Pizza. Lasagna. Frozen meals. Potato chips. Azeri fries. Summary You can reduce your risk of kidney stones by making changes to your diet. The most important thing you can do is drink enough fluid. You should drink enough fluid to keep your urine clear or pale yellow. Ask your health care provider or dietitian how much protein from animal sources you should eat each day, and also how much salt and calcium you should have each day. This information is not intended to replace advice given to you by your health care provider. Make sure you discuss any questions you have with your health care provider. Document Released: 10/08/2011 Document Revised: 10/03/2019 Document Reviewed: 05/24/2017 [employer] Patient Education 2020 Medipacs. Follow Up Care 06/29/2022 15:00:08 With:RACIEL ANDERSNO, Van Burroughs, URL Address: [facility] [address] [place] [address]- When: Unknown [facility] 06-14-2022 Procedure note [facility] 04-01-2022 Consult note Note Date/Time April 01, 2022 5:51pm [facility] [address] [place] [id number] Gastroenterology Consult Note Signed Patient: Raquel Correa MR#: [id number] : 1985 Acct:[id number] Age/Sex: 37 / F Adm Date: 2 Loc: Room: 0C8638-0 Type: ADM IN Attending Dr: Jessica Akhtar MD Copies to: MD Be Underwood MD Ruta Semaskiene, MD~ HPI Data of Consult Date of Consultation: 04/01/22 Requesting Physician: Jessica Akhtar MD Consult Narrative History of present illness: Ms. Correa is a 37 year old female who is referred because of possible flareup of Crohn's disease. The patient states that she had been doing well with only her chronic diarrhea symptoms for the last many years. She had a colonoscopy [id number] with Dr. Burton colonoscopy in [address] Lucas which were both normal to the anastomosis. 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 She has had chronicdiarrhea since that period of time. She states is normal for her to move the bowels 4-6 times a day and the orders of the same consistency. She was started on multiple medications including colestipol which did not work, Viberzi which gave her pancreatitis. In the records I cannot find any real substantive proof that the patient has had Crohn's disease. 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 Patient developed a UTI and was started on cefdinir last week. Within a couple of days she began having abdominal cramping and bloody diarrhea. She was hospitalized and stool test here showing that she has C. difficile colitis. Medical problems include chronic kidney disease, history of blood clots, IBS, kidney stones, POTS, tachycardia cc:: CC: Jessica Akhtar MD Review of Systems Review of Systems All other systems reviewed & are negative unless noted below or in HPI [facility] Vaccinated for COVID-19?: Yes Medical History (Updated 04/01/22 @ 17:50 by Be Azul MD) Anemia Chronic kidney disease Crohn disease Gastroschisis History of blood clots RIGHT CALF History of blood transfusion IBS (irritable bowel syndrome) Kidney stones POTS (postural orthostatic tachycardia syndrome) Tachycardia Surgical History H/O colectomy H/O cystoscopy H/O lithotripsy Multiple, last time 01/2022 History of lithotripsy Hx of cholecystectomy Family History Father Diabetes mellitus, type 2 Social History Smoking Status: Never smoker Substance Use Type: None Substance Abuse Comment: RARE Meds Medications and Allergies Allergies levofloxacin [From Levaquin] Allergy (Verified 03/31/22 11:16) Hives morphine Allergy (Verified 03/31/22 11:16) Diarrhea sodium ferric gluconate complex [From Ferrlecit] Allergy (Verified 03/31/22 11:16) Hives sucrose [From Ferrlecit] Allergy (Verified 04/01/22 10:19) Hives tramadol Allergy (Verified 03/31/22 11:16) Vomiting vancomycin Adverse Reaction (Severe, Verified 04/01/22 11:09) natalie amoxicillin [From Augmentin] Adverse Reaction (Verified 03/31/22 11:16) Diarrhea clavulanic acid [From Augmentin] Adverse Reaction (Verified 03/31/22 11:16) Diarrhea Home Medications Lactobacills gasseri-Bifidobac bifidum,longum 1.5 billion cell capsule ([employer]) 1.5 tab PO DAILY 04/10/17 [History Confirmed 03/31/22] cyproheptadine 4 mg tablet 4 mg PO BID 04/10/17 [History Confirmed 03/31/22] fluoxetine 40 mg capsule (Prozac) 40 mg PO DAILY 04/10/17 [History Confirmed 03/31/22] hydrocodone 5 mg-acetaminophen 325 mg tablet (Upton) 1 tab PO BID PRN Pain 04/10/17 [History Confirmed 03/31/22] dicyclomine 20 mg tablet 20 mg PO BID 04/25/19 [History Confirmed 03/31/22] rvrtchf-qtreprzcgnvoi-qktpumxy 250 mg-250 mg-65 mg tablet (Excedrin Migraine) 1 tab PO DIRECTED PRN Pain 07/29/19 [History Confirmed 03/31/22] ferrous sulfate 325 mg (65 mg iron) tablet (iron) 325 mg PO BID 07/29/19 [History Confirmed 03/31/22] metoprolol tartrate 50 mg tablet 50 mg PO BID 01/20/21 [History Confirmed 03/31/22] ondansetron 4 mg disintegrating tablet 8 mg PO Q4-6H PRN Nausea 01/20/21 [History Confirmed 03/31/22] omeprazole 40 mg capsule,delayed release 40 mg PO DAILY 01/29/21 [History Confirmed 03/31/22] sumatriptan succinate 100 mg tablet (Imitrex) 100 mg PO DIRECTED PRN Kkdtayym53/06/21 [History Confirmed 03/31/22] d-mannose 500 mg capsule 1,500 mg PO BID KIDNEYS 03/27/22 [History Confirmed 03/31/22] methylprednisolone 4 mg tablets in a dose pack (Medrol (Ryne)) See Rx Instructions PO .COMPLEX #21 tabs 03/27/22 [Rx Confirmed 03/31/22] multivitamin 1 tab PO BID 03/27/22 [History Confirmed 03/31/22] magnesium oxide 400 mg PO DAILY 03/31/22 [History Confirmed 03/31/22] nitrofurantoin monohydrate/macrocrystals 100 mg capsule 100 mg PO BID 03/31/22 [History Confirmed 03/31/22] potassium chloride 20 mEq tablet,extended release 20 meq PO BID 03/31/22 [History Confirmed 03/31/22] cyanocobalamin (vitamin B-12) 1,000 mcg/mL injection solution 1,000 mcg IM DIRECTED 1 month #30 mL 04/01/22 [Rx] ertapenem 1 gram solution for injection (Invanz) 1 g IM Q24H #4 ea 04/01/22 [Rx] ferrous sulfate 142 mg (45 mg iron) tablet,extended release (Slow Fe) 284 mg PO Q48HR 1 month #30 tabs 04/01/22 [Rx] vancomycin 125 mg capsule 125 mg PO QID 14 days #56 caps 04/01/22 [Rx] Exam Physical Exam Vital Signs: Temp Pulse Resp BP Pulse Ox O2 Del Method 98.0 F 73 18 122/58 L 98 Room Air 04/01/22 12:00 04/01/22 12:00 04/01/22 12:00 04/01/22 12:00 04/01/22 12:00 04/01/22 12:00 Narrative: Constitutional: Well-developed, well nourished, alert and oriented ?3, in no apparent distress. Head: Normocephalic. Eyes pupils equal and round, reactive to light and accommodation. No icterus or conjunctivitis. Ears: Normal appearance. Neck and nodes: negative Mouth, nose and throat: Normal appearance. Chest: Clear to auscultation and percussion. Heart: Regular rhythm without murmurs or gallops. No thrills or heaves. Abdomen: No distention or tympany. Normal bowel sounds. Liver and spleen normal to percussion and palpation. No masses or tenderness. No bruits heard Rectum: Grossly normal. Extremities: No palmar erythema. No Dupuytren's contractures. No edema noted. Neuro: Grossly negative. Skin: Normal Results Labs Labs: Laboratory Results - last 24 hr 03/31/22 03/31/22 03/31/22 13:35 15:48 18:20 Corrected WBC Uncorrected WBC Count RBC Hgb Hct MCV MCH MCHC RDW Plt Count MPV Neut % (Auto) Lymph % (Auto) [place] % (Auto) Eos % (Auto) Baso % (Auto) Neut # (Auto) Lymph # (Auto) [place] # (Auto) Eos # (Auto) Baso # (Auto) Nucleated RBC % (auto) PHA Creatinine Clear Sodium Potassium Chloride Carbon Dioxide Anion Gap BUN Creatinine Est GFR ( Amer) Est GFR (Non-Af Amer) Glucose Calcium Total Bilirubin AST ALT Alkaline Phosphatase Total Protein Albumin Globulin Albumin/Globulin Ratio Urine Color Yellow Urine Appearance Clear Urine pH 5.5 Ur Specific [place] 1.005 Urine Protein Negative Urine Glucose (UA) Normal Urine Ketones Negative Urine Occult Blood Negative Urine Nitrite Positive H Urine Bilirubin Negative Urine Urobilinogen Normal Ur Leukocyte Esterase 3+ H Urine RBC None seen Urine WBC 10-19 H Ur Squamous Epith Cells 5-9 H Urine Bacteria 3+ H Hyaline Casts 0-8 COVID-19 Clin Com Negative Crossmatch ([facility]) See Detail 03/31/22 04/01/22 04/01/22 21:44 00:08 06:28 Corrected WBC 6.6 Uncorrected WBC Count 6.6 RBC 2.69 L Hgb 8.0 L 7.2 L 7.8 L Hct 24.1 L 21.7 L 23.6 L MCV 87.7 MCH 29.0 MCHC 33.1 RDW 15.1 Plt Count 403 MPV 7.4 Neut % (Auto) 59.7 Lymph % (Auto) 32.6 [place] % (Auto) 6.1 Eos % (Auto) 1.3 Baso % (Auto) 0.3 Neut # (Auto) 4.0 Lymph # (Auto) 2.2 [place] # (Auto) 0.4 Eos # (Auto) 0.1 Baso # (Auto) 0.0 Nucleated RBC % (auto) 0.1 PHA Creatinine Clear Sodium Potassium Chloride Carbon Dioxide Anion Gap BUN Creatinine Est GFR ( Amer) Est GFR (Non-Af Amer) Glucose Calcium Total Bilirubin AST ALT Alkaline Phosphatase Total Protein Albumin Globulin Albumin/Globulin Ratio Urine Color Urine Appearance Urine pH Ur Specific [place] Urine Protein Urine Glucose (UA) Urine Ketones Urine Occult Blood Urine Nitrite Urine Bilirubin Urine Urobilinogen Ur Leukocyte Esterase Urine RBC Urine WBC Ur Squamous Epith Cells Urine Bacteria Hyaline Casts COVID-19 Clin Com Crossmatch ([facility]) 04/01/22 04/01/22 06:28 12:01 Corrected WBC Uncorrected WBC Count RBC Hgb 8.9 L Hct 26.9 L MCV MCH MCHC RDW Plt Count MPV Neut % (Auto) Lymph % (Auto) [place] % (Auto) Eos % (Auto) Baso % (Auto) Neut # (Auto) Lymph # (Auto) [place] # (Auto) Eos # (Auto) Baso # (Auto) Nucleated RBC % (auto) PHA Creatinine Clear 83.92 Sodium 138 Potassium 4.0 Chloride 108 Carbon Dioxide 24.6 Anion Gap 9.4 BUN 2 L Creatinine 0.74 Est GFR ( Amer) > 60 Est GFR (Non-Af Amer) > 60 Glucose 82 Calcium 8.3 Total Bilirubin 0.4 AST 18 ALT 18 Alkaline Phosphatase 47 Total Protein 4.8 L Albumin 2.8 L Globulin 2.0 Albumin/Globulin Ratio 1.4 Urine Color Urine Appearance Urine pH Ur Specific [place] Urine Protein Urine Glucose (UA) Urine Ketones Urine Occult Blood Urine Nitrite Urine Bilirubin Urine Urobilinogen Ur Leukocyte Esterase Urine RBC Urine WBC Ur Squamous Epith Cells Urine Bacteria Hyaline Casts COVID-19 Clin Com Crossmatch ([facility]) A&P - Gastroenterology Assessment/Plan (1) C. difficile colitis: Plan: Patient has active C. difficile colitis. There is no reason to think that she has active Crohn's disease. Recommend that she be treated with standard vancomycin therapy. I would like to see her as an outpatient because it may be some other techniques we can use to help control her chronic diarrhea. She undoubtably has some degree of short-bowel syndrome. Code(s): A04.72 - Enterocolitis due to Clostridium difficile, not specified as recurrent Status: Acute Documented By: Be Azul MD 04/01/221745 Signed By: <Electronically signed by MD Be Azul> 04/01/[address] [facility] Work Phone: 1(339) 327-423310-06-2022 Progress note Author Jessica Akhtar [facility] April 01, 2022 12:51pm Note Date/Time April 01, 2022 11 :42am [facility] [address] [place] [address] Hospitalist Progress Note Signed Patient: Raquel Correa MR#: [id number] : 1985 Acct:[id number] Age/Sex: 37 / F Adm Date: 2 Loc: 4N Room: 7G6508-7 Type: ADM IN Attending Dr: Jessica Akhtar MD Copies to: ~ Date of Service: 04/01/2022 Subjective Subjective Narrative: Patient is doing significantly better. She denies any dizziness any lightheadedness. Her bowel movements back to her norm, but still has hematochezia. Abdominal pain improved. No dysuria urgency frequency. Physical exam: General -awake, alert, oriented ?3, not in acute distress, pale Cardiovascular -S1 with S2, no murmurs, no rubs, no gallops Pulmonary - clear to auscultation bilaterally Gastrointestinal - abdomen is soft, nondistended, nontender, bowel sounds positive, there is no rigidity, no rebound Extremities -no edema Neurological -no focal neurological dysfunction noted Exam Physical Exam Vital Signs: Temp Pulse Resp BP Pulse Ox O2 Del Method 36.7 C 73 20 122/58 L 98 Room Air 04/01/22 11:17 04/01/22 11:17 04/01/22 11:17 04/01/22 11:17 04/01/22 11:17 04/01/22 11:17 Objective Lab Results CBC & Chem 7: 04/01/22 06:28 04/01/22 06:28 Microbiology Results Microbiology 03/31/22 13:10 Stool Stool Occult Blood (DIVYA) - Final 03/31/22 13:10 Stool Stool Lactoferrin - Final 03/31/22 15:48 Nasal SARS Antigen (LFIA) - Final Meds Allergies and Active Meds Allergies levofloxacin [From Levaquin] Allergy (Verified 03/31/22 11:16) Hives morphine Allergy (Verified 03/31/22 11:16) Diarrhea sodium ferric gluconate complex [From Ferrlecit] Allergy (Verified 03/31/22 11:16) Hives sucrose [From Ferrlecit] Allergy (Verified 04/01/22 10:19) Hives tramadol Allergy (Verified 03/31/22 11:16) Vomiting vancomycin Adverse Reaction (Severe, Verified 04/01/22 11:09) natalie amoxicillin [From Augmentin] Adverse Reaction (Verified 03/31/22 11:16) Diarrhea clavulanic acid [From Augmentin] Adverse Reaction (Verified 03/31/22 11:16) Diarrhea Active Meds: Active Medications Generic Name Dose Route Start Last Admin Trade Name Freq PRN Reason Stop Dose Admin Acetaminophen 650 mg 03/31/22 14:31 Acetaminophen 325 Mg Tablet PO 03/31/23 14:30 Q4H PRN Pain Scale 1 - 5 Hydrocodone Bitart/Acetaminophen 1 tab 03/31/22 14:30 04/01/22 10:51 Hydrocodone/Acetaminophen 5-325 Mg Tablet PO 1 tab Q12H PRN Administration Pain Albuterol 2.5 mg 03/31/22 14:31 Albuterol Neb 2.5 Mg/3 Ml Vial.Neb INHALATION 03/31/23 14:30 Q2H PRN Shortness Of Breath Cyanocobalamin 1,000 mcg 03/31/22 17:25 04/01/22 09:42 Cyanocobalamin 1,000 Mcg/Ml Vial IM 03/31/23 17:24 1,000 mcg DAILY MARLEEN Administration Cyproheptadine HCl 4 mg 03/31/22 21:00 04/01/22 09:42 Cyproheptadine 4 Mg Tablet PO 03/31/23 20:59 4 mg BID MARLEEN Administration Docusate Sodium 200 mg 03/31/22 14:31 Docusate 100 Mg Capsule PO 03/31/23 14:30 BID PRN Constipation Fluoxetine HCl 40 mg 04/01/22 09:00 04/01/22 09:41 Fluoxetine 20 Mg Capsule PO 04/01/23 08:59 40 mg DAILY MARLEEN Administration Hydralazine HCl 10 mg 03/31/22 14:31 Hydralazine 20 Mg/Ml Vial IV-PUSH 03/31/23 14:30 Q4H PRN if SBP > 185 Sodium Chloride 500 mls @ 20 mls/hr 03/31/22 13:26 0.9 % Sodium Chloride IV 04/01/22 13:25 PROTOCOL PRN BLOOD TRANSFUSION Potassium Chloride/Sodium Chloride 1,000 mls @ 100 mls/hr 03/31/22 14:45 04/01/22 10:51 0.9 % Nacl-20 Meq Kcl IV 03/31/23 14:44 100 mls/hr .Q10H MARLEEN Administration Ertapenem 1 gm in 100 mls @ 200 mls/hr 03/31/22 16:00 03/31/22 18:54 Invanz IV 200 mls/hr Q24H MARLEEN Administration Magnesium Oxide 400 mg 04/01/22 09:00 04/01/22 09:41 Magnesium Oxide 400 Mg Tablet PO 04/01/23 08:59 400 mg DAILY MARLEEN Administration Metoprolol Tartrate 50 mg 03/31/22 21:00 04/01/22 09:41 Metoprolol Tartrate 50 Mg Tablet PO 03/31/23 20:59 50 mg BID MARLEEN Administration Omeprazole 40 mg 04/01/22 09:00 04/01/22 09:41 Omeprazole 20 Mg Capsule.Dr PO 04/01/23 08:59 40 mg DAILY MARLEEN Administration Ondansetron HCl 4 mg 03/31/22 14:31 Ondansetron 4 Mg/2 Ml Vial IV-PUSH 03/31/23 14:30 Q6H PRN Nausea And Vomiting Oxycodone/Acetaminophen 1 tab 03/31/22 15:12 Oxycodone/Acetaminophen 5-325 Mg Tablet PO Q4H PRN pain Potassium Chloride 20 meq 03/31/22 21:00 04/01/22 10:53 Potassium Chloride Er 10 Meq Tablet.Er PO 03/31/23 20:59 20 meq BID MARLEEN Administration Saccharomyces Boulardii 250 mg 04/01/22 09:00 04/01/22 09:41 Saccharomyces Boulardii 250 Mg Capsule PO 04/01/23 08:59 250 mg DAILY MARLEEN Administration Sodium Chloride 0 ml 03/31/22 11:15 Sodium Chloride 0.9 % 10 Ml Syringe IV-PUSH 03/31/23 11:14 PRN PRN Flush Vancomycin HCl 125 mg 03/31/22 18:00 04/01/22 09:41 Vancomycin 125 Mg Capsule PO 04/10/22 14:01 125 mg QID MARLEEN Administration A&P - Hospitalist Assessment/Plan (1) Anemia: Plan 1. Acute blood loss anemia due to lower GI bleeding in a patient with history of Crohn's disease, possible Crohn's exacerbation, however CT scan shows thickening of the rectum Status post transfusion of 1 unit of packed red blood cell, H&H stable C. difficile colitis continue with vancomycin 2. Lightheadedness due to above, improved 3. Hypokalemia/hypomagnesemia replacement 4. Suspicious for cystitis on CT scan, urine cultures ESBL E. coli, continue with Invanz 5. Vitamin B12 deficiency continue with iron supplement 6. Iron deficiency anemia, allergic to iron IV DVT prophylaxis SCDs for now Documented By: Jessica Akhtar MD 04/01/22 1140 Signed By: <Electronically signed by Jessica Akhtar MD> 04/01/22 1251 [facility] Work Phone: 1(854) 139-829410-05-2022 History and physical note Author Jessica Akhtar [facility] March 31, 2022 3:09pm Note Date/Time March 31, 2022 3: 09pm [facility] [address] [place] [address] Hospitalist H&P Signed Patient: Raquel Correa MR#: [id number] : 1985 Acct:[id number] Age/Sex: 37 / F Adm Date: 2 Loc: Room: [address] [place] [address] Type: ADM IN Attending Dr: Jessica Akhtar MD Copies to: MD Jessica Underwood MD~ HPI DATE OF EXAMINATION: 03/31/22 CHIEF COMPLAINT: Rectal bleeding HISTORY OF PRESENT ILLNESS: 37 years old female who has been diagnosed with Crohn's insensate 15 years old presented with rectal bleeding for almost a week. Usually she has recurrent rectal bleeding lasting for couple of days, which goes away. However this time it was continued. On Tuesday she presented to emergency room where she was prescribed Medrol Dosepak and was discharged. However her bleeding continued. She did not felt any relief. She complained of dizziness and lightheadedness but no syncopal episode. Complained of lower abdominal pain. Complains of nausea but no vomiting no hematemesis. Continue to have bright red blood with clots per rectum. Denies any chest pain and shortness of breath. Denies any dysuria urgency frequency. Review of Systems Review of Systems Review of systems: 10 systems reviewed and are negative apart what is mentioned in H&P PMFSH Vaccinated for COVID-19?: Yes Medical History (Updated 03/31/22 @ 14:03 by Xenia Church RN) Anemia Chronic kidney disease Crohn disease Gastroschisis History of blood clots RIGHT CALF History of blood transfusion IBS (irritable bowel syndrome) Kidney stones POTS (postural orthostatic tachycardia syndrome) Tachycardia Surgical History (Updated 03/31/22 @ 14:03 by Xenia Church RN) H/O colectomy H/O cystoscopy H/O lithotripsy Multiple, last time 01/2022 History of lithotripsy Hx of cholecystectomy Family History (Updated 07/15/21 @ 08:12 by Carol Murphy RN) Father Diabetes mellitus, type 2 Social History Smoking Status: Never smoker Tobacco Type: cigarettes Substance Use Type: None Substance Abuse Comment: RARE Meds Medications and Allergies Allergies levofloxacin [From Levaquin] Allergy (Verified 03/31/22 11:16) Hives morphine Allergy (Verified 03/31/22 11:16) Diarrhea sodium ferric gluconate complex [From Ferrlecit] Allergy (Verified 03/31/22 11:16) Hives sucrose [From Ferrlecit] Allergy (Verified 03/31/22 11:16) Hives tramadol Allergy (Verified 03/31/22 11:16) Vomiting amoxicillin [From Augmentin] Adverse Reaction (Verified 03/31/22 11:16) Diarrhea clavulanic acid [From Augmentin] Adverse Reaction (Verified 03/31/22 11:16) Diarrhea Home Medications Lactobacills gasseri-Bifidobac bifidum,longum 1.5 billion cell capsule ([facility]) 1.5 tab PO DAILY 04/10/17 [History Confirmed 03/31/22] cyproheptadine 4 mg tablet 4 mg PO BID 04/10/17 [History Confirmed 03/31/22] fluoxetine 40 mg capsule (Prozac) 40 mg PO DAILY 04/10/17 [History Confirmed 03/31/22] hydrocodone 5 mg-acetaminophen 325 mg tablet (Upton) 1 tab PO Q4H PRN Pain 04/10/17 [History Confirmed 03/31/22] dicyclomine 20 mg tablet 20 mg PO BID 04/25/19 [History Confirmed 03/31/22] aizzytc-gdwxzfrwnucrh-ptgyvvaj 250 mg-250 mg-65 mg tablet (Excedrin Migraine) 1 tab PO DIRECTED PRN Pain 07/29/19 [History Confirmed 03/31/22] ferrous sulfate 325 mg (65 mg iron) tablet (iron) 325 mg PO BID 07/29/19 [History Confirmed 03/31/22] metoprolol tartrate 50 mg tablet 50 mg PO BID 01/20/21 [History Confirmed 03/31/22] ondansetron 4 mg disintegrating tablet 8 mg PO Q4-6H PRN Nausea 01/20/21 [History Confirmed 03/31/22] omeprazole 40 mg capsule,delayed release 40 mg PO DAILY 01/29/21 [History Confirmed 03/31/22] sumatriptan succinate 100 mg tablet (Imitrex) 100 mg PO DIRECTED PRN Mwfvaoqu11/06/21 [History Confirmed 03/31/22] d-mannose 500 mg capsule 1,500 mg PO BID KIDNEYS 03/27/22 [History Confirmed 03/31/22] methylprednisolone 4 mg tablets in a dose pack (Medrol (Ryne)) See Rx Instructions PO .COMPLEX #21 tabs 03/27/22 [Rx Confirmed 03/31/22] multivitamin 1 tab PO BID 03/27/22 [History Confirmed 03/31/22] magnesium oxide 400 mg PO DAILY 03/31/22 [History Confirmed 03/31/22] nitrofurantoin monohydrate/macrocrystals 100 mg capsule 100 mg PO BID 03/31/22 [History Confirmed 03/31/22] potassium chloride 20 mEq tablet,extended release 20 meq PO BID 03/31/22 [History Confirmed 03/31/22] Exam Physical Exam Vital Signs: Temp Pulse Resp BP Pulse Ox O2 Del Method 36.7 C 87 18 117/62 100 Room Air 03/31/22 11:17 03/31/22 14:00 03/31/22 14:00 03/31/22 14:00 03/31/22 14:00 03/31/22 14:00 Narrative: The patient has been seen and examined in the emergency room General -patient is awake alert oriented ?3, does not appear to be in distress HEENT -dry oropharyngeal mucosa without any ulcers or exudates Cardiovascular -S1 plus S2, with regular rate, with tachycardia Pulmonary -clear to auscultation bilaterally Gastrointestinal -abdomen is soft, no rigidity no rebound with tenderness in thelower abdomen Genitourinary -n deferred Musculoskeletal -note difficult joint swelling Neurological -no focal d Skin -she appears to be pale Extremities - no edema in bilateral lower extremities noted Psychiatry - appropriate affect Laboratory work up, imaging studies reviewed EKG personally reviewed by me normal sinus rhythm with nonspecific ST-T wave changes, with slight ST depression in inferior leads as well as V3 to V6 Previous records in the computer system reviewed CT scan of the abdomen and pelvis was done on March 27, 2020 do show wall thickening enhancement of the rectum suggesting of infectious inflammatory etiology, lobulated cystic adnexal structure 7.3 Bladder wall thickening suspicious of cystitis Results Lab Results Labs: Laboratory Last Values Corrected WBC 11.7 X10E3/uL (3.8-11.6) H 03/31/22 12:37 Uncorrected WBC Count 11.7 x10E3/uL (4.5-11.0) H 03/31/22 12:37 RBC 2.38 x10E6/uL (3.60-5.00) L 03/31/22 12:37 Hgb 6.8 g/dL (11.8-15.4) L 03/31/22 12:37 Hct 21.1 % (34.0-46.4) L 03/31/22 12:37 MCV 88.7 fl (80-100) 03/31/22 12:37 MCH 28.7 pg (24.7-34.3) 03/31/22 12:37 MCHC 32.3 g/dL (32.0-35.0) 03/31/22 12:37 RDW 14.8 % (11.9-15.3) 03/31/22 12:37 Plt Count 422 x10E3/uL (150-450) 03/31/22 12:37 MPV 7.4 fl (6.3-10.7) 03/31/22 12:37 Neut % (Auto) 71.0 % (.) 03/31/22 12:37 Lymph % (Auto) 22.6 % (.) 03/31/22 12:37 [place] % (Auto) 5.6 % (.) 03/31/22 12:37 Eos % (Auto) 0.3 % (.) 03/31/22 12:37 Baso % (Auto) 0.5 % (.) 03/31/22 12:37 Neut # (Auto) 8.3 x10E3/uL (1.8-7.7) H 03/31/22 12:37 Lymph # (Auto) 2.6 x10E3/uL (1.00-4.8) 03/31/22 12:37 [place] # (Auto) 0.7 x10E3/uL (0.0-0.8) 03/31/22 12:37 Eos # (Auto) 0.0 x10E3/uL (0.0-0.45) 03/31/22 12:37 Baso # (Auto) 0.1 x10E3/uL (0.0-0.2) 03/31/22 12:37 Nucleated RBC % (auto) 0.1 % (0-0.5) 03/31/22 12:37 ESR 8 mm/hr (0-19) 03/31/22 12:37 PT 11.3 Seconds (9.0-12.9) 03/31/22 12:37 INR 1.0 03/31/22 12:37 APTT 24.5 Seconds (25.1-36.5) L 03/31/22 12:37 PHA Creatinine Clear 82.80 03/31/22 12:37 Sodium 136 mmol/L (136-146) 03/31/22 12:37 Potassium 3.1 mmol/L (3.5-5.1) L 03/31/22 12:37 Chloride 103 mmol/L (95-114) 03/31/22 12:37 Carbon Dioxide 24.1 mmol/L (22.0-30.0) 03/31/22 12:37 Anion Gap 12.0 mEq/L (6.0-15.0) 03/31/22 12:37 BUN 6 mg/dL (9-23) L 03/31/22 12:37 Creatinine 0.75 mg/dL (0.44-1.03) 03/31/22 12:37 Est GFR ( Amer) > 60 mL/Min 03/31/22 12:37 Est GFR (Non-Af Amer) > 60 mL/Min 03/31/22 12:37 Glucose 90 mg/dL (70-100) 03/31/22 12:37 Calcium 8.9 mg/dL (8.2-10.2) 03/31/22 12:37 Magnesium 1.7 mg/dL (1.6-2.6) 03/31/22 12:37 Total Bilirubin 0.3 mg/dL (0.3-1.2) 03/31/22 12:37 AST 13 U/L (10-42) 03/31/22 12:37 ALT 16 U/L (10-60) 03/31/22 12:37 Alkaline Phosphatase 50 U/L (32-92) 03/31/22 12:37 Total Protein 5.7 gm/dL (6.1-7.9) L 03/31/22 12:37 Albumin 3.2 gm/dL (3.2-5.5) 03/31/22 12:37 Globulin 2.5 gm/dL 03/31/22 12:37 Albumin/Globulin Ratio 1.3 03/31/22 12:37 Lipase 31.0 U/L (22-51) 03/31/22 12:37 TSH 3rd Generation 3.41 uIU/mL (0.45-5.33) 03/31/22 12:37 Blood Type O Positive 03/31/22 13:35 Crossmatch ([facility]) See Detail 03/31/22 13:35 A&P - Hospitalist Assessment/Plan (1) Anemia: Plan 1. Acute blood loss anemia due to lower GI bleeding in a patient with history of Crohn's disease, possible Crohn's exacerbation, however CT scan shows thickening of the rectum For now we will continue with hydration, transfusion GI consulted Start Flagyl IV decision regarding steroids to gastroenterology C. difficile pending 2. Lightheadedness due to above, transfuse 3. Hypokalemia/hypomagnesemia replacement 4. Suspicious for cystitis on CT scan, check urinalysis DVT prophylaxis SCDs for now Documented By: Jessica Akhtar MD 03/31/22 1503 Signed By: <Electronically signed by Jessica Akhtar MD> 03/31/22 1509 [facility] Work Phone: 1([phone]) 187-697812-01-2003 History of Past illness Narrative* Problem Noted Date Resolved Date Abdominal pain 05/27/2003 04/10/2013 Diarrhea 05/27/2003 04/10/2013 documented as of this encounter (statuses as of 10/16/2020) [facility] No data available for this section [facility] Evaluation + Plan note Future Appointments Appointment Date:10/06/2022 02:40:00 PM Scheduled Provider:TISH KENDALL PA-C Location:[facility] Appointment Type:URO Office Visit [facility] evaluation + Plan note Future Appointments Appointment Date:04/12/2023 11:00:00 AM Scheduled Provider:TISH KENDALL PA-C Location:[facility] Appointment Type:URO Office Visit [facility] evaluation + Plan note Future Appointments Appointment Date:05/10/2023 01:15:00 PM Scheduled Provider:TISH KENDALL PA-C Location:[facility] Appointment Type:URO Office Visit [facility] evaluation noteNo assessment information available [facility] Work Phone: evaluation note* Diagnosis Onset Date Resolution Status Anemia acute Chronic hypokalemia acute Crohn's disease acute [facility] Work Phone: evaluation note* Diagnosis Onset Date Resolution Status Anemia acute C. difficile colitis acute Chronic hypokalemia acute Crohn's disease acute [facility] Work Phone: evaluation note* Diagnosis Onset Date Resolution Status Anemia acute C. difficile colitis acute Chronic hypokalemia acute Crohn's disease acute Acute blood loss anemia acut e Anemia acute Crohn's disease acute Hypokalemia acute Rectal bleeding acute [facility] Work Phone: evaluation note* Diagnosis Onset Date Resolution Status Anemia acute C. difficile colitis acute Chronic hypokalemia acute Crohn's disease acute Acute blood loss anemia acut e Anemia acute Crohn's disease acute Hypokalemia acute Rectal bleeding acute Rectal bleeding acute [facility] Work Phone: evaluation note* Diagnosis Onset Date Resolution Status Acute blood loss anemia acut e Anemia acute Crohn's disease acute Hypokalemia acute Rectal bleeding acute Rectal bleeding acute [facility] Work Phone: evaluation note* Diagnosis Onset Date Resolution Status Rectal bleeding acute [facility] Work Phone: History and physical note Author Jessica Akhtar [facility] March 31, 2022 3:09pm Note Date/Time March 31, 2022 3: 09pm [facility] [address] [place] [address] Hospitalist H&P Signed Patient: Raquel Correa MR#: [id number] : 1985 Acct:[id number] Age/Sex: 37 / F Adm Date: 2 Loc: 4N Room: [address] [place] [address] Type: ADM IN Attending Dr: Jessica Akhtar MD Copies to: MD Jessica Underwood MD~ HPI DATE OF EXAMINATION: 03/31/22 CHIEF COMPLAINT: Rectal bleeding HISTORY OF PRESENT ILLNESS: 37 years old female who has been diagnosed with Crohn's insensate 15 years old presented with rectal bleeding for almost a week. Usually she has recurrent rectal bleeding lasting for couple of days, which goes away. However this time it was continued. On Tuesday she presented to emergency room where she was prescribed Medrol Dosepak and was discharged. However her bleeding continued. She did not felt any relief. She complained of dizziness and lightheadedness but no syncopal episode. Complained of lower abdominal pain. Complains of nausea but no vomiting no hematemesis. Continue to have bright red blood with clots per rectum. Denies any chest pain and shortness of breath. Denies any dysuria urgency frequency. Review of Systems Review of Systems Review of systems: 10 systems reviewed and are negative apart what is mentioned in H&P PMFSH Vaccinated for COVID-19?: Yes Medical History (Updated 03/31/22 @ 14:03 by Xenia Church RN) Anemia Chronic kidney disease Crohn disease Gastroschisis History of blood clots RIGHT CALF History of blood transfusion IBS (irritable bowel syndrome) Kidney stones POTS (postural orthostatic tachycardia syndrome) Tachycardia Surgical History (Updated 03/31/22 @ 14:03 by Xenia Church RN) H/O colectomy H/O cystoscopy H/O lithotripsy Multiple, last time 01/2022 History of lithotripsy Hx of cholecystectomy Family History (Updated 07/15/21 @ 08:12 by Carol Murphy RN) Father Diabetes mellitus, type 2 Social History Smoking Status: Never smoker Tobacco Type: cigarettes Substance Use Type: None Substance Abuse Comment: RARE Meds Medications and Allergies Allergies levofloxacin [From Levaquin] Allergy (Verified 03/31/22 11:16) Hives morphine Allergy (Verified 03/31/22 11:16) Diarrhea sodium ferric gluconate complex [From Ferrlecit] Allergy (Verified 03/31/22 11:16) Hives sucrose [From Ferrlecit] Allergy (Verified 03/31/22 11:16) Hives tramadol Allergy (Verified 03/31/22 11:16) Vomiting amoxicillin [From Augmentin] Adverse Reaction (Verified 03/31/22 11:16) Diarrhea clavulanic acid [From Augmentin] Adverse Reaction (Verified 03/31/22 11:16) Diarrhea Home Medications Lactobacills gasseri-Bifidobac bifidum,longum 1.5 billion cell capsule ([facility]) 1.5 tab PO DAILY 04/10/17 [History Confirmed 03/31/22] cyproheptadine 4 mg tablet 4 mg PO BID 04/10/17 [History Confirmed 03/31/22] fluoxetine 40 mg capsule (Prozac) 40 mg PO DAILY 04/10/17 [History Confirmed 03/31/22] hydrocodone 5 mg-acetaminophen 325 mg tablet (Upton) 1 tab PO Q4H PRN Pain 04/10/17 [History Confirmed 03/31/22] dicyclomine 20 mg tablet 20 mg PO BID 04/25/19 [History Confirmed 03/31/22] xtvaehl-gxmrxjmoyjfdz-tycgwhzl 250 mg-250 mg-65 mg tablet (Excedrin Migraine) 1 tab PO DIRECTED PRN Pain 07/29/19 [History Confirmed 03/31/22] ferrous sulfate 325 mg (65 mg iron) tablet (iron) 325 mg PO BID 07/29/19 [History Confirmed 03/31/22] metoprolol tartrate 50 mg tablet 50 mg PO BID 01/20/21 [History Confirmed 03/31/22] ondansetron 4 mg disintegrating tablet 8 mg PO Q4-6H PRN Nausea 01/20/21 [History Confirmed 03/31/22] omeprazole 40 mg capsule,delayed release 40 mg PO DAILY 01/29/21 [History Confirmed 03/31/22] sumatriptan succinate 100 mg tablet (Imitrex) 100 mg PO DIRECTED PRN Bcmqszdd39/06/21 [History Confirmed 03/31/22] d-mannose 500 mg capsule 1,500 mg PO BID KIDNEYS 03/27/22 [History Confirmed 03/31/22] methylprednisolone 4 mg tablets in a dose pack (Medrol (Ryne)) See Rx Instructions PO .COMPLEX #21 tabs 03/27/22 [Rx Confirmed 03/31/22] multivitamin 1 tab PO BID 03/27/22 [History Confirmed 03/31/22] magnesium oxide 400 mg PO DAILY 03/31/22 [History Confirmed 03/31/22] nitrofurantoin monohydrate/macrocrystals 100 mg capsule 100 mg PO BID 03/31/22 [History Confirmed 03/31/22] potassium chloride 20 mEq tablet,extended release 20 meq PO BID 03/31/22 [History Confirmed 03/31/22] Exam Physical Exam Vital Signs: Temp Pulse Resp BP Pulse Ox O2 Del Method 36.7 C 87 18 117/62 100 Room Air 03/31/22 11:17 03/31/22 14:00 03/31/22 14:00 03/31/22 14:00 03/31/22 14:00 03/31/22 14:00 Narrative: The patient has been seen and examined in the emergency room General -patient is awake alert oriented ?3, does not appear to be in distress HEENT -dry oropharyngeal mucosa without any ulcers or exudates Cardiovascular -S1 plus S2, with regular rate, with tachycardia Pulmonary -clear to auscultation bilaterally Gastrointestinal -abdomen is soft, no rigidity no rebound with tenderness in thelower abdomen Genitourinary -n deferred Musculoskeletal -note difficult joint swelling Neurological -no focal d Skin -she appears to be pale Extremities - no edema in bilateral lower extremities noted Psychiatry - appropriate affect Laboratory work up, imaging studies reviewed EKG personally reviewed by me normal sinus rhythm with nonspecific ST-T wave changes, with slight ST depression in inferior leads as well as V3 to V6 Previous records in the computer system reviewed CT scan of the abdomen and pelvis was done on March 27, 2020 do show wall thickening enhancement of the rectum suggesting of infectious inflammatory etiology, lobulated cystic adnexal structure 7.3 Bladder wall thickening suspicious of cystitis Results Lab Results Labs: Laboratory Last Values Corrected WBC 11.7 X10E3/uL (3.8-11.6) H 03/31/22 12:37 Uncorrected WBC Count 11.7 x10E3/uL (4.5-11.0) H 03/31/22 12:37 RBC 2.38 x10E6/uL (3.60-5.00) L 03/31/22 12:37 Hgb 6.8 g/dL (11.8-15.4) L 03/31/22 12:37 Hct 21.1 % (34.0-46.4) L 03/31/22 12:37 MCV 88.7 fl (80-100) 03/31/22 12:37 MCH 28.7 pg (24.7-34.3) 03/31/22 12:37 MCHC 32.3 g/dL (32.0-35.0) 03/31/22 12:37 RDW 14.8 % (11.9-15.3) 03/31/22 12:37 Plt Count 422 x10E3/uL (150-450) 03/31/22 12:37 MPV 7.4 fl (6.3-10.7) 03/31/22 12:37 Neut % (Auto) 71.0 % (.) 03/31/22 12:37 Lymph % (Auto) 22.6 % (.) 03/31/22 12:37 Lenoir % (Auto) 5.6 % (.) 03/31/22 12:37 Eos % (Auto) 0.3 % (.) 03/31/22 12:37 Baso % (Auto) 0.5 % (.) 03/31/22 12:37 Neut # (Auto) 8.3 x10E3/uL (1.8-7.7) H 03/31/22 12:37 Lymph # (Auto) 2.6 x10E3/uL (1.00-4.8) 03/31/22 12:37 Lenoir # (Auto) 0.7 x10E3/uL (0.0-0.8) 03/31/22 12:37 Eos # (Auto) 0.0 x10E3/uL (0.0-0.45) 03/31/22 12:37 Baso # (Auto) 0.1 x10E3/uL (0.0-0.2) 03/31/22 12:37 Nucleated RBC % (auto) 0.1 % (0-0.5) 03/31/22 12:37 ESR 8 mm/hr (0-19) 03/31/22 12:37 PT 11.3 Seconds (9.0-12.9) 03/31/22 12:37 INR 1.0 03/31/22 12:37 APTT 24.5 Seconds (25.1-36.5) L 03/31/22 12:37 PHA Creatinine Clear 82.80 03/31/22 12:37 Sodium 136 mmol/L (136-146) 03/31/22 12:37 Potassium 3.1 mmol/L (3.5-5.1) L 03/31/22 12:37 Chloride 103 mmol/L (95-114) 03/31/22 12:37 Carbon Dioxide 24.1 mmol/L (22.0-30.0) 03/31/22 12:37 Anion Gap 12.0 mEq/L (6.0-15.0) 03/31/22 12:37 BUN 6 mg/dL (9-23) L 03/31/22 12:37 Creatinine 0.75 mg/dL (0.44-1.03) 03/31/22 12:37 Est GFR ( Amer) > 60 mL/Min 03/31/22 12:37 Est GFR (Non-Af Amer) > 60 mL/Min 03/31/22 12:37 Glucose 90 mg/dL (70-100) 03/31/22 12:37 Calcium 8.9 mg/dL (8.2-10.2) 03/31/22 12:37 Magnesium 1.7 mg/dL (1.6-2.6) 03/31/22 12:37 Total Bilirubin 0.3 mg/dL (0.3-1.2) 03/31/22 12:37 AST 13 U/L (10-42) 03/31/22 12:37 ALT 16 U/L (10-60) 03/31/22 12:37 Alkaline Phosphatase 50 U/L (32-92) 03/31/22 12:37 Total Protein 5.7 gm/dL (6.1-7.9) L 03/31/22 12:37 Albumin 3.2 gm/dL (3.2-5.5) 03/31/22 12:37 Globulin 2.5 gm/dL 03/31/22 12:37 Albumin/Globulin Ratio 1.3 03/31/22 12:37 Lipase 31.0 U/L (22-51) 03/31/22 12:37 TSH 3rd Generation 3.41 uIU/mL (0.45-5.33) 03/31/22 12:37 Blood Type O Positive 03/31/22 13:35 Crossmatch (AHG) See Detail 03/31/22 13:35 A&P - Hospitalist Assessment/Plan (1) Anemia: Plan 1. Acute blood loss anemia due to lower GI bleeding in a patient with history of Crohn's disease, possible Crohn's exacerbation, however CT scan shows thickening of the rectum For now we will continue with hydration, transfusion GI consulted Start Flagyl IV decision regarding steroids to gastroenterology C. difficile pending 2. Lightheadedness due to above, transfuse 3. Hypokalemia/hypomagnesemia replacement 4. Suspicious for cystitis on CT scan, check urinalysis DVT prophylaxis SCDs for now Documented By: Jessica Akhtar MD 03/31/22 1509 Signed By: <Electronically signed by Jessica Akhtar MD> 03/31/[address] [facility] Work Phone: 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 illness Narrative* She has Crohn's disease, and she has had extensive abdominal surgeries. * She has a tendency for hypokalemia, because of her Crohn's disease. The Crohn's disease is also thereason for her hemorrhoidal bleed which is torrential, and she has received several blood transfusions. She would like to have the surgery done sooner rather than later. * Patient was initially seen by on 07/26/2022, for preoperative cardiac risk assessment. She went on to have hemorrhoidal surgery, which was complicated by the need for repeat surgery. She is still quite uncomfortable, and is on medical leave. 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 * She has not had any recent bouts of palpitations lightheadedness presyncope or syncope. * Prior to the surgery we had expressed plan to do further work-up for her long history of postural lightheadedness presyncope and palpitations. * Laboratory data from 07/19/2022 showed hemoglobin of 12.4 hematocrit 38.3 platelets 405 GFR greater than 60 glucose 81 sodium 136 potassium 4.3. On the metoprolol 50 p.o. twice daily and potassium supplementation, she is no longer having much palpitations, and feels that this symptom is much improved * She is awake alert oriented x3, her blood pressure is at target, laboratory data from July 19 was reviewed, her lungs are clear and her heart sounds are regular without murmur rub or gallop. She has extensive scarring in her abdomen from prior surgeries. * Assessment and Recommendations : * 1. Long history of palpitations, improved with repletion of potassium and initiation of metoprolol which she seems to be tolerating without untoward effects,Holter showed PAT. * 2. Symptoms of vasodepressor syncope, almost resolved. * 3.Will complete cardiac work up with an echocardiogram. * 4.Pt to call for results. * 5.Prn Follow up. * 6.Life style modification reiterated. -[facility] DO Work Phone: 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 illness Narrative* She has Crohn's disease, and she has had extensive abdominal surgeries. * She has a tendency for hypokalemia, because of her Crohn's disease. The Crohn's disease is also thereason for her hemorrhoidal bleed which is torrential, and she has received several blood transfusions. She would like to have the surgery done sooner rather than later. * Patient was initially seen by on 07/26/2022, for preoperative cardiac risk assessment. She went on to have hemorrhoidal surgery, which was complicated by the need for repeat surgery. She is still quite uncomfortable, and is on medical leave. 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 * She has not had any recent bouts of palpitations lightheadedness presyncope or syncope. * Prior to the surgery we had expressed plan to do further work-up for her long history of postural lightheadedness presyncope and palpitations. * Laboratory data from 07/19/2022 showed hemoglobin of 12.4 hematocrit 38.3 platelets 405 GFR greater than 60 glucose 81 sodium 136 potassium 4.3. On the metoprolol 50 p.o. twice daily and potassium supplementation, she is no longer having much palpitations, and feels that this symptom is much improved * She is awake alert oriented x3, her blood pressure is at target, laboratory data from July 19 was reviewed, her lungs are clear and her heart sounds are regular without murmur rub or gallop. She has extensive scarring in her abdomen from prior surgeries. * Assessment and Recommendations : * 1. Long history of palpitations, improved with repletion of potassium and initiation of metoprolol which she seems to be tolerating without untoward effects,Holter showed PAT. * 2. Symptoms of vasodepressor syncope, almost resolved. * 3.Will complete cardiac work up with an echocardiogram. * 4.Pt to call for results. * 5.Prn Follow up. * 6.Life style modification reiterated. [facility] Work Phone: Hospital Discharge instructions No data available for this section [facility] Hospital Discharge instructions Additional Instructions Dietary recommendations: - Boost Breeze three times/day [facility] Work Phone: Hospital Discharge instructions Additional Instructions DISCHARGE INSTRUCTIONS FOR ENDOSCOPY FOR COLONOSCOPY: -Expect a gassy or full feeling after a colonoscopy. Report any NEW abdominal pain or vomiting. -Watch for rectal bleeding. You may have oozing, but notify the doctor if you pass clots. -It is important to keep your appointments for follow up examinations because polyps can grow back. FOR SEDATION FOR 24 HOURS: -NO driving -Do NOT operate machinery such as power tools, lawn mowers, snow blowers, sewing machines, etc. -Avoid alcoholic beverages and drugs for allergies, nerves, or sleep. -Do NOT stay alone. Do NOT leave your child unattended. -Do NOT make important personal or business decisions or sign any legal documents. -Eat solid foods and drink liquids in smaller amounts than usual until normal appetite returns. If you should experience an upset stomach, liquids high in sugar content (soda, Alexandr-aid, non-acid juices) are recommended. -You can resume normal activities tomorrow. FOLLOW UP Please call the office and make a follow up appointment to see me in 6-8 weeks. -Notify the doctor if you have any problems. -Office number [phone] Work Phone: Progress note No data available for this section [facility] Progress note Author Be Azul [facility] April 02, 2022 3:55pm Note Date/Time April 02, 2022 3: 55pm [facility] [address] [place] [address] Gastroenterology PN Signed Patient: Raquel Correa MR#: [id number] : 1985 Acct:[id number] Age/Sex: 37 / F Adm Date: 2 Loc: 4N Room: [address] [place] [address] Type: DIS IN Attending Dr: Jessica Akhtar MD Copies to: MD Be Underwood MD Ruta Semaskiene, MD~ Date of Service: 04/02/2022 Subjective Subjective Narrative: Patient has had about 3 bowel movements a day. Plan is to continue the vancomycin for 14 days. She is also getting IV antibiotics for a UTI and it would be difficult to clear her C. difficile while she is receiving antibiotics. Exam Physical Exam Vital Signs: Temp Pulse Resp BP Pulse Ox O2 Del Method 98.8 F 71 18 95/58 L 98 Room Air 04/02/22 11:24 04/02/22 11:24 04/02/22 11:24 04/02/22 11:24 04/02/22 11:24 04/02/22 11:24 Objective Allergies and Medications Allergies/Adverse Reactions: Allergies Allergy/AdvReac Type Severity Reaction Status Date / Time levofloxacin [From Levaquin] Allergy Hives Verified 03/31/22 11:16 morphine Allergy Diarrhea Verified 03/31/22 11:16 sodium ferric gluconate Allergy Hives Verified 03/31/22 11:16 complex [From Ferrlecit] sucrose [From Ferrlecit] Allergy Hives Verified 04/01/22 10:19 tramadol Allergy Vomiting Verified 03/31/22 11:16 vancomycin AdvReac Severe natalie Verified 04/01/22 11:09 amoxicillin [From Augmentin] AdvReac Diarrhea Verified 03/31/22 11:16 clavulanic acid AdvReac Diarrhea Verified 03/31/22 11:16 [From Augmentin] Active Meds: Active Medications Generic Name Dose Route Start Last Admin Trade Name Freq PRN Reason Stop Dose Admin Acetaminophen 650 mg 03/31/22 14:31 Acetaminophen 325 Mg Tablet PO 03/31/23 14:30 Q4H PRN Pain Scale 1 - 5 Hydrocodone Bitart/Acetaminophen 1 tab 03/31/22 14:30 04/01/22 10:51 Hydrocodone/Acetaminophen 5-325 Mg Tablet PO 1 tab Q12H PRN Administration Pain Albuterol 2.5 mg 03/31/22 14:31 Albuterol Neb 2.5 Mg/3 Ml Vial.Neb INHALATION 03/31/23 14:30 Q2H PRN Shortness Of Breath Cyanocobalamin 1,000 mcg 03/31/22 17:25 04/02/22 08:10 Cyanocobalamin 1,000 Mcg/Ml Vial IM 03/31/23 17:24 1,000 mcg DAILY MARLEEN Administration Cyproheptadine HCl 4 mg 03/31/22 21:00 04/02/22 08:10 Cyproheptadine 4 Mg Tablet PO 03/31/23 20:59 4 mg BID MARLEEN Administration Docusate Sodium 200 mg 03/31/22 14:31 Docusate 100 Mg Capsule PO 03/31/23 14:30 BID PRN Constipation Fluoxetine HCl 40 mg 04/01/22 09:00 04/02/22 08:09 Fluoxetine 20 Mg Capsule PO 04/01/23 08:59 40 mg DAILY MARLEEN Administration Hydralazine HCl 10 mg 03/31/22 14:31 Hydralazine 20 Mg/Ml Vial IV-PUSH 03/31/23 14:30 Q4H PRN if SBP > 185 Ertapenem 1 gm in 100 mls @ 200 mls/hr 03/31/22 16:00 04/02/22 13:17 Invanz IV 04/05/22 15:59 200 mls/hr Q24H MARLEEN Administration Magnesium Oxide 400 mg 04/01/22 09:00 04/02/22 08:10 Magnesium Oxide 400 Mg Tablet PO 04/01/23 08:59 400 mg DAILY MARLEEN Administration Metoprolol Tartrate 50 mg 03/31/22 21:00 04/02/22 08:10 Metoprolol Tartrate 50 Mg Tablet PO 03/31/23 20:59 50 mg BID MARLEEN Administration Ondansetron HCl 4 mg 03/31/22 14:31 Ondansetron 4 Mg/2 Ml Vial IV-PUSH 03/31/23 14:30 Q6H PRN Nausea And Vomiting Oxycodone/Acetaminophen 1 tab 03/31/22 15:12 04/02/22 14:36 Oxycodone/Acetaminophen 5-325 Mg Tablet PO 1 tab Q4H PRN Administration pain Polysaccharide Iron Complex 300 mg 04/01/22 12:00 04/01/22 12:03 Iron Polysaccharide Complex 150 Mg Capsule PO 04/01/23 11:59 300 mg Q48H MARLEEN Administration Potassium Chloride 20 meq 03/31/22 21:00 04/02/22 08:10 Potassium Chloride Er 10 Meq Tablet.Er PO 03/31/23 20:59 20 meq BID MARLEEN Administration Saccharomyces Boulardii 250 mg 04/01/22 09:00 04/02/22 08:09 Saccharomyces Boulardii 250 Mg Capsule PO 04/01/23 08:59 250 mg DAILY MARLEEN Administration Sodium Chloride 0 ml 03/31/22 11:15 Sodium Chloride 0.9 % 10 Ml Syringe IV-PUSH 03/31/23 11:14 PRN PRN Flush Vancomycin HCl 125 mg 03/31/22 18:00 04/02/22 13:17 Vancomycin 125 Mg Capsule PO 04/10/22 14:01 125 mg QID MARLEEN Administration Zinc Oxide 1 applic 04/01/22 13:12 Zinc Oxide 30% Ointment 113 Gm Tube TOPICAL 04/01/23 13:11 PRN PRN Rash A&P - Gastroenterology Assessment/Plan (1) C. difficile colitis: Plan: We will see how she does and 14 days of vancomycin. I like to see her in the office in 6 to 8 weeks. Code(s): A04.72 - Enterocolitis due to Clostridium difficile, not specified as recurrent Status: Acute Documented By: Be Azul MD 04/02/22 1557 Signed By: <Electronically signed by MD Be Azul> 04/02/[address] [facility] Work Phone: Chief Complaint and Reason for Visit Chief Complaint rectal bleeding, sob Chief Complaint rectal bleeding, sob sob, abnorm hr Reason for Visit Anemia Chronic hypokalemia Crohn's disease Chief Complaint rectal bleeding, sob sob, abnorm hr Reason for Visit Anemia C. difficile colitis Chronic hypokalemia Crohn's disease Chief Complaint rectal bleeding, sob sob, abnorm hr N39.0 Reason for Visit Anemia C. difficile colitis Chronic hypokalemia Crohn's disease Chief Complaint rectal bleeding, sob sob, abnorm hr N39.0 dizzy and rectal bleeding fever Reason for Visit Anemia C. difficile colitis Chronic hypokalemia Crohn's disease Acute blood loss anemia Anemia Crohn's disease Hypokalemia Rectal bleeding Chief Complaint rectal bleeding, sob sob, abnorm hr N39.0 dizzy and rectal bleeding fever Anemia Rectal Bleeding, Anemia Reason for Visit Anemia C. difficile colitis Chronic hypokalemia Crohn's disease Acute blood loss anemia Anemia Crohn's disease Hypokalemia Rectal bleeding Rectal bleeding Chief Complaint dizzy and rectal ble eding fever Anemia Rectal Bleeding, Anemia Hemorrhoids Reason for Visit Acute blood loss ane armando Anemia Crohn's disease Hypokalemia Rectal bleeding Rectal bleeding Chief Complaint dizzy and rectal ble eding fever Anemia Rectal Bleeding, Anemia Hemorrhoids Hemorrhoids Reason for Visit Acute blood loss ane armando Anemia Crohn's disease Hypokalemia Rectal bleeding Rectal bleeding Chief Complaint fever Anemia Rectal Bleeding, Anemia Hemorrhoids Hemorrhoids Surgery Reason for Visit Rectal bleeding Advance Directives No Advanced Directives Records Found Advance Directive Response Recorded Date/ Time Advance Directives No April 10, 2017 1:41am Advance Directive Response Recorded Date/ Time Advance Directives No April 10, 2017 12:41am Chief Complaint POC Hemmroidectomy Katelynnandover.RAQUEL CORREA is being seen for a 2 month follow-up of.RAQUEL CORREA is being seen for a 2 month follow-up of.RAQUEL CORREA is being seen for a 2 month follow-up of. Family History No Family History Records FoundUnknown Family Member Name Dates Details Family history of hyperlipid emia: Mother(V18.19, Z83.438) Status:Active Cervical carcinoma: Mother Status:Active Family history of hypertensi on: Father(V17.49, Z82.49) Status:Active Family history of diabetes m ellitus: Father(V18.0, Z83.3) Status:Active No pertinent family history: Sister, Brother(V49.89, Z78.9) Status:Active Summary Purpose Additional Source Comments Source Comments (unrecognize d section and content) In the event this informatio n is protected by the Federal Confidentiality of Alcohol and Drug Abuse Patient Records regulations: The Federal rules restrict any use of the information to criminally investigate or prosecute any alcohol or drug abuse patient.[facility] Reason for Visit (unrecogniz ed section and content) Reason Onset Date Comments care 05/31/2013 apts Care Team (unrecognized sect ion and content) Team Status: Inactive Member Role Status Trista Lee MD Primary Care Provider Active Dominik Vanegas DO Emergency Provider Active Karen Velazquez DO RES Active Team Status: Active Member Role Status Trista Lee MD Primary Care Provider Active Team Status: Active Member Role Status Trista Lee MD Primary Care Provider Active Jaime Rodriguez DO Emergency Provider Active Jessica Akhtar MD Admit Provider, Attending Provide r Active Team Status: Inactive Member Role Status Trista Lee MD Primary Care Provider Active Jaime Rodriguez DO Emergency Provider Active Jessica Akhtar MD Admit Provider, Attending Provide r Active Be Azul MD Other Provider Active Team Status: Inactive Member Role Status Trista Lee MD Primary Care Provider Active Jessica Akhtar MD Attending Provider Active Team Status: Inactive Member Role Status Trista Lee MD Primary Care Provider Active Noman Armando MD Emergency Provider Active Team Status: Inactive Member Role Status Trista Lee MD Primary Care Provider Active Truman Hu PA-C Emergency Provider Active Jarad Mcmillan MD Admit Provider Active Finn Vo MD Other Provider Active Jessica Akhtar MD Attending Provider Active Be Azul MD Other Provider Active Team Status: Inactive Member Role Status Trista Lee MD Primary Care Provider Active Be Azul MD Attending Provider Active Team Status: Inactive Member Role Status Trista Lee MD Primary Care Provider, Attending Pr ovidbhavesh Active Team Status: Inactive Member Role Status Trista Lee MD Primary Care Provider Active Carter Lewis DO Attending Provider Active Goals (unrecognized section and content) Goals may be documented in a n alternate section INFORMATION SOURCE (unrecogn ized section and content) DATE CREATED AUTHOR 09/04/2022 [facility] DATE CREATED AUTHOR AUTHOR'S ORGANIZ ATION 09/05/2022 [employer] DATE CREATED AUTHOR AUTHOR'S ORGANIZ ATION 10/04/2022 [facility] DATE CREATED AUTHOR AUTHOR'S ORGANIZ ATION 12/04/2022 [facility] DATE CREATED AUTHOR AUTHOR'S ORGANIZ ATION 12/04/2022 [facility] DATE CREATED AUTHOR AUTHOR'S ORGANIZ ATION 06/10/2023 [facility] FOR RECORDS PERTAINING TO PATIENTS WHO ARE OR HAVE BEEN ENROLLED IN A CHEMICAL DEPENDENCY/SUBSTANCEABUSE PROGRAM, SOME INFORMATION MAY BE OMITTED. This clinical summary was aggregated from multiple sources. Caution should be exercised in using it in the provision of clinical care. This summary normalizes information from multiple sources, and as a consequence, information in this document may materially change the coding, format and clinical context of patient data. In addition, data may be omitted in some cases. CLINICAL DECISIONS SHOULD BE BASED ON THE PRIMARY CLINICAL RECORDS. [facility] [employer] [facility]. provides no warranty or guarantee of the accuracy or completeness of information in this document.
[2023-07-19 14:28] LABS: Calcium 9.9 mg/dL (8.5-10.1); Carbon Dioxide 29.7 mmol/L (21.0-32.0); Chloride 98 mmol/L (98-107); Estimated GFR (African America >60 (>=60); Estimated GFR (Non-African Ame 59 (>=60); Phosphorus 3.7 mg/dL (2.6-4.7); Sodium 135 mmol/L (136-145); Uric Acid 4.7 mg/dL (2.6-6.0)
[2023-07-19 18:27] LABS: Calcium Urine Random <5.0 mg/dL (5.1-21.0); Creatinine Urine Random 84.65 mg/dL (20.00-300.00); Sodium Urine Random 67 mmol/L (30-90)
[2023-07-19 18:30] LABS: Sodium 24 Hour Urine 122 mmol/24h (40-220); Total Volume 24 Hour Urine 1825 mL/24hr
[2023-07-21 10:10] LABS: Phosphorus,Urine 24h 1083 mg/24 hr (261-1078); Uric Acid, Urine 27.8 mg/dL (Not Estab.); Uric Acid,Urine 24hr 528.2 mg/24 hr (173.7-902.1)
[2023-07-22 15:08] LABS: Citric Acid, U, 24hr 344 mg/24 hr (320-1240); Citric Acid, Urine 181 mg/L (Undefined)
[2023-07-27 16:10] LABS: Oxalates, Urine 52 mg/L (Undefined); Oxalates, Urine 24hr 99 mg/24 hr (4-31)
== END 2023-07-19 13:08 | disposition home or self-care (01) ==
LOC: LAB 13:07
PROVIDERS: PCP Family Medicine; Visit Provider Urology
DX: Z79.899 Other long term (current) drug therapy (principal); N20.0 Calculus of kidney
CPT/HCPCS: 36415; 80307; 80326; 80331; 80334; 80337; 80338; 80341; 80344; 80346; 80348; 80353; 80354; 80355; 80357; 80358; 80359; 80360; 80361; 80364; 80365; 80366; 80367; 80368; 80370; 80371; 80372; 80373; 80377; 82310; 82340; 82374; 82435; 82507; 82565; 82570; 83735; 83945; 83992; 84100; 84105; 84295; 84300; 84520; 84550; 84560

== ENCOUNTER 2023-07-19 13:09 | Outpatient (OUT) | payer BC, OTHER, SELFPAY ==
--- OUTSIDE RECORDS SUMMARY | 2023-07-19 13:15 | XMS_ITS | CCD ---
Author Name Unknown Address [address] [place] [address] Organization [facility] Care Team Providers Care Acid Tender Name Role Phone Chandrika Lee Primary Care Provider Chandrika Lee Primary Care Physician MD Chandrika Lee Primary Care Provider DO Dominik Vanegas Emergency Provider DO Jaime Rodriguez Emergency Provider MD Jessica Akhtar Admit Provider MD Jessica Akhtar Attending Provider MD Be Azul Other Provider [phone] MD Chandrika Lee Primary Care Provider DO Dominik Vanegas Emergency Provider DO Jaime Rodriguez Emergency Provider MD Jessica Akhtar Admit Provider [phone] MD Jessica Akhtar Attending Provider [phone] MD Be Azul Other Provider MELONY Hu Emergency Provider MD Jarad Mcmillan Admit Provider MD Finn Vo Other Provider MD Noman Armando Emergency Provider [phone] MD Chandrika Lee Attending Provider MD Be Azul Attending Provider MD Chandrika Lee Primary Care Provider [phone] MD Jessica Akhtar Attending Provider [phone] MD Be Azul Other Provider [phone] DO Carter Lewis Attending Provider Chandrika Lee Unavailable Unavailable Unavailable MD Chandrika Lee Primary Care Provider [phone] Perlita Lawrence Referring Unavailable Hoderik, Dr. Chandrika [...] Unavailable SCHRADER ., DR ARAUJO Consulting Unavailable CSHRADER ., DR ARAUJO Attending Unavailable WEST, DR [...] Unavailable SCHRADER ., DR ARAUJO Attending Unavailable [place], DR DEVYN Nunn Consulting Unavailable [place], Jessica [...] Attending Unavailable Carter Lewis Attending Unavailable Gagany, Chandrika M Primary Care Unavailable Carter Lewis [...] (2 sources) Morphine Drug Allergy 4 Vomiting [facility] (11 sources) Amoxicillin / Clavulanate; Translations: [amoxicillin-clav ulanate] Drug Allergy Unknown (qualifier value) [facility] (6 sources) iron polysaccharide; Translations: [iron polysaccharide] Drug Allergy Unknown (qualifier value) [facility] (15 sources) levoFLOXacin; Translations: [levofloxacin] Drug Allergy 2 Eruption (morphologic abnormality), Unknown (qualifier value) [facility] (15 sources) Morphine; Translations: [morphine] Drug Allergy 2 Unknown (qualifier value) [facility] (20 sources) traMADol; Translations: [tramadol] Drug Allergy 2 Unknown (qualifier value) [facility] (10 sources) Amoxicillin; Translations: [amoxicillin] Drug Allergy 2 Diarrhea [facility] (10 sources) Clavulanate; Translations: [clavulanic acid] Drug Allergy 2 [facility] (10 sources) Sodium ferric gluconate complex; Translations: [sodium ferric gluconate complex] Drug Allergy 2 [facility] (10 sources) Sucrose; Translations: [sucrose] Drug Allergy 2 [facility] (8 sources) Vancomycin; Translations: [vancomycin] Drug Allergy 2 natalie [facility] (6 sources) Vancomycin Cross Reactors; Translations: [Vancomycin Cross Reactors] Allergy to drug (finding) [facility] 250 DO Work Phone: (5 sources) Iron Dextran SOLN; Translations: [Iron Dextran SOLN] Allergy to drug (finding) [facility] 250 DO Work Phone: (1 source) Amoxicillin / Clavulanate Drug Allergy 7 [facility] (2 sources) levoFLOXacin Drug Allergy 7 [facility] (2 sources) Morphine Drug Allergy [facility] (2 sources) NSAIDs Drug allergy (disorder) 7 [facility] (2 sources) traMADol Drug Allergy 7 [facility] (1 source) Nikunj-Iron Drug allergy (disorder) 0 [facility] (1 source) levoFLOXacin Drug Allergy 3 [facility] (1 source) Morphine Drug Allergy 3 [facility] (1 source) traMADol Drug Allergy 3 [facility] Medications Current Medications Medication Drug Class(es) [...] 1 tablet by mouth twice daily Hydrocodone-Acetaminophen (Isabella) 5-325 mg Tablet Discontinued 1 TAB PO Twice daily April 09, 2017 11:00pm May 12, 2022 4:21pm Start: 04-10-2017 take 1 tablet by aguilar th every four hours Hydrocodone-Acetaminophen (Isabella) 5-325 mg Tablet Active 1 TAB PO [...] Allergen Start: 08-17-2022 Dibucaine Active 1 APPLIC GA Three times daily August 17, 2022 12:00am [...] Status: Ordered L. Gasseri-B. Bifidum-B Long um (Curious Sense) 1.5 billion cell Capsule (9 sources) Start: 04-10-2017 L. Gasseri-B. Bifidum-B Longum (Curious Sense) 1.5 billion cell Capsule Active 1.5 TAB PO Daily April 09, 2017 11:00pm Start: 04-10-2017 L. Gasseri-B. Bifidum-B Longum (Curious Sense) 1.5 billion cell Capsule Active 1.5 TAB [...] Daily, # 30 tab(s), Refills(s) 0, Pharmacy: [facility], 160, cm, 02/04/21 15:55:00 EDT, Height/Length Dosing, 57.3, kg, 02/04/21 15:55:00 EDT, Weight Dosing Start Date: 02/04/21 Status: Ordered [facility] (5 sources) Start: 02-04-2021 [facility] Oral, Daily, Refill(s) 0 Start Date: [...] activity, # 15 tab(s), Refills(s) 3, Pharmacy: [facility], 160, cm, 10/06/22 14:54:00 EDT, Height/Length [...] 09, 2022 2:33pm 21 day ethinyl estradiol 0.234335 mg/hr / etonogestrel 0.005 mg/hr vaginal system [...] End: 05-30-2022 Hydrocortisone Acetate Discontinued 25 MG GA Twice daily 14 03May 12, 2022 12:00am [...] aftercare (9 sources) Drug therapy 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 Rajni ble to display) May 26, 2023 RAQUEL CORREA [address] [place] [address] : 1985 To Whom It May Concern, Please excuse above patient from work. Date of Illness: From: 05/23/2023 To: 05/27/2023 May Return to Work On: 05/28/2023 Restrictions: None Comments: Patient had a surgical procedure done on 05/23/[address] Van Schrader. She may return to work 05/28/2303 without restrictions. Sincerely, [facility] Lab Reportson 05-24-2023 Lab Reports [id number]#1.00TIFF [facility] Operative Reporton 3 Operative Report [id number]#1.00TIFF [facility] Lab Reportson 05-23-2023 Lab Reports [id number]#1.00TIFF [facility] Consent for Procedure/Surger yon 05-13-2023 Consent for Procedure/Surgery [id number]#1.00TIFF [facility] C Urineon 05-12-2023 Bacteria identified Cx Nom [...] Locations R1: This test was performed at: [facility], [address] [place] [address], [address] , , [facility] Comment on above: Performed By: #### 2 [id number] ####[place] [address] Consent for Procedure/Surger yon 05-12-2023 Consent for Procedure/Surgery [id number]#1.00TIFF [facility] Insurance Correspondenceon 1 07-12-2022 Insurance Correspondence [id number]#1.00TIFF [facility] Lab Reportson 05-11-2023 Lab Reports [id number]#1.00TIFF [facility] Lab Reports [id number]#1.00TIFF [facility] RAD - CT Reporton 05-11-2023 RAD - CT Report [id number]#1.00TIFF [facility] Patient Educationon 05-10-20 Patient Education Urology Kidney [...] these instructions at home: Medicines ? Take mkxn-vpc-ziftrhs and prescription medicines only as told by [...] provider. Document Revised: 02/15/2022 Document Reviewed: 02/15/2022 [employer] Patient Education ? 2022 [employer]. [employer] [facility] Urology Office/Clinic Noteon 05-10-2023 Urology Office/Clinic Note [...] kidney) S/p R ESWL 01/07/2022 CT from [facility] 10/24/21 shows two 5 mm R renal [...] Contact Information RACIEL ANDERSON, [place], URL [address] [place] [address]- Additional Instructions: Schedule laser litho Patient Education Kidney Stones, Hqoo-hy-[id number] Documentation recorded by the scrdelaney Gross accurately [...] UTI Tachycardia (more content not included)... [facility] Comment on above: Result Comment: Elec tronically Signed By: TISH KENDALL PA-C\Almabr\Date and Time Signed: 05/10/23 13:59 EST\.br\Electronically Co-Signed By: Sanna Grossbr\Date and Time Co-Signed: 05/10/23 13:52 EST RAD - MISCon 04-28-2023 RAD - MISC [id number]#1.00TIFF [facility] RAD - Ultrasound Reporton RAD - Ultrasound Report [id number]#1.00TIFF [facility] CULTURE URINEon 11-17-2022 CULTURE URINE Isolate 1 [...] F Trimethoprim/Sulfamethoxaz ole <=20 S F Normal [facility] Comment on above: Performed By: #### U AMIC #### [facility] [address] [place] [address] Dr. Tori Thomas CBC AUTO DIFFon 11-15-2022 BASO # 0.0 103/ul Normal 0.0-0.1 [facility] Comment on above: Performed By: #### P T, PTT #### [facility] [address] [place] [address] Dr. Tori Thomas Basophils/100 WBC (Bld) 0.2 % Normal 0.2-2.0 [facility] Comment on above: Performed By: #### P T, PTT #### [facility] [address] [place] [address] Dr. Tori Thomas EO # 0.0 103/ul Normal 0.0-0.7 [facility] Comment on above: Performed By: #### P T, PTT #### [facility] [address] [place] [address] Dr. Tori Thomas Eosinophils/100 WBC (Bld) 0.0 % Critically low 0.9-7.0 [facility] Comment on above: Performed By: #### P T, PTT #### [facility] [address] [place] [address] Dr. Tori Thomas Erythrocyte distribution width (RBC) [Ratio] 14.0 % Normal 11.0-15.0 [facility] Comment on above: Performed By: #### P T, PTT #### [facility] [address] [place] [address] Dr. Tori Thomas Hematocrit (Bld) [Volume fraction] 36.8 % Normal 36.0-48.0 [facility] Comment on above: Performed By: #### P T, PTT #### [facility] [address] [place] [address] Dr. Tori Thomas Hemoglobin (Bld) [Mass/Vol] 12.2 g/dL Normal 12.0-16.0 [facility] Comment on above: Performed By: #### P T, PTT #### [facility] [address] [place] [address] Dr. Tori Thomas IG # 0.03 10e3/ul Normal 0.00-0.03 [facility] Comment on above: Performed By: #### P T, PTT #### [facility] [address] [place] [address] Dr. Tori Thomas IG % 0.3 % Normal 0.0-0.5 [facility] Comment on above: Performed By: #### P T, PTT #### [facility] [address] [place] [address] Dr. Tori Thomas LYMPH # 1.9 103/ul Normal 1.2-3.8 [facility] Comment on above: Performed By: #### P T, PTT #### [facility] [address] [place] [address] Dr. Tori Thomas Lymphocytes/100 WBC (Bld) 17.2 % Critically low 20.5-60.0 [facility] Comment on above: Performed By: #### P T, PTT #### [facility] [address] [place] [address] Dr. Tori Thomas MANUAL DIFF REQ NO Normal [facility] Comment on above: Performed By: #### P T, PTT #### [facility] [address] [place] [address] Dr. Tori Thomas MCH (RBC) [Entitic mass] 28.8 pg Normal 26.7-34.0 [facility] Comment on above: Performed By: #### P T, PTT #### [facility] [address] [place] [address] Dr. Tori Thomas MCHC (RBC) [Mass/Vol] 33.2 g/dL Normal 29.9-35.2 [facility] Comment on above: Performed By: #### P T, PTT #### [facility] [address] [place] [address] Dr. Tori Thomas MCV (RBC) [Entitic vol] 87.0 fL Normal 81.0-99.0 [facility] Comment on above: Performed By: #### P T, PTT #### [facility] [address] [place] [address] Dr. Tori Thomas MONO # 0.5 103/ul Normal 0.3-0.8 [facility] Comment on above: Performed By: #### P T, PTT #### [facility] [address] [place] [address] Dr. Tori Thomas Monocytes/100 WBC (Bld) 4.0 % Normal 1.7-12.0 [facility] Comment on above: Performed By: #### P T, PTT #### [facility] [address] [place] [address] Dr. Tori Thomas NEUT # 8.8 103/ul Critically high 1.4-6.5 [facility] Comment on above: Performed By: #### P T, PTT #### [facility] [address] [place] [address] Dr. Tori Thomas Neutrophils/100 WBC (Bld) 78.3 % Critically high 43.0-75.0 [facility] Comment on above: Performed By: #### P T, PTT #### [facility] [address] [place] [address] Dr. Tori Thomas Platelet mean volume (Bld) [Entitic vol] 9.8 fL Normal 9.5-13.5 [facility] Comment on above: Performed By: #### P T, PTT #### [facility] [address] [address] [address] Tori Thomas PLT 317 103/ul Normal 150-450 [facility] Comment on above: Performed By: #### P T, PTT #### [facility] [address] [address] [address] Tori Thomas RBC 4.23 106/ul Normal 4.20-5.40 [facility] Comment on above: Performed By: #### P T, PTT #### [facility] [address] [address] [address] Tori Thomas WBC 11.3 103/ul Critically high 4.0-11.0 [facility] Comment on above: Performed By: #### P T, PTT #### [facility] [address] [address] [address] Tori Thomas Complete Blood Count Auto Di ffon 11-15-2022 Basophils (Bld) [#/Vol] 0.0 10*3/uL Normal 0.0-0.2 [facility] Comment on above: Result Comment: PERF ORMED BY: [place] [id number] PATHOLOGIST CIRCUIT BOARD DRAFTER RADHA GARCIA M.D. Performed By: #### C BC, MG, CMP, ESR, LIPASE, TSH3 #### [facility] [address] [place] [address] Basophils/100 WBC (Bld) 0.3 % Normal . [facility] Comment on above: Performed By: #### C BC, MG, CMP, ESR, LIPASE, TSH3 #### [facility] [address] [place] [address] Eosinophils (Bld) [#/Vol] 0.0 10*3/uL Normal 0.0-0.45 [facility] Comment on above: Performed By: #### C BC, MG, CMP, ESR, LIPASE, TSH3 #### [address] [address] [place] Eosinophils/100 WBC (Bld) 0.3 % Normal . [facility] Comment on above: Performed By: #### C BC, MG, CMP, ESR, LIPASE, TSH3 #### [address] Erythrocyte distribution width (RBC) [Ratio] 14.6 % Normal 11.9-15.3 [facility] Comment on above: Performed By: #### C BC, MG, CMP, ESR, LIPASE, TSH3 #### [address] Hematocrit (Bld) [Volume fraction] 36.1 % Normal 34.0-46.4 [facility] Comment on above: Performed By: #### C BC, MG, CMP, ESR, LIPASE, TSH3 #### [address] Hemoglobin (Bld) [Mass/Vol] 12.1 g/dL Normal 11.8-15.4 [facility] Comment on above: Performed By: #### C BC, MG, CMP, ESR, LIPASE, TSH3 #### [address] Lymphocytes (Bld) [#/Vol] 1.7 10*3/uL Normal 1.00-4.8 [facility] Comment on above: Performed By: #### C BC, MG, CMP, ESR, LIPASE, TSH3 #### [address] Lymphocytes/100 WBC (Bld) 14.8 % Normal . [facility] Comment on above: Performed By: #### C BC, MG, CMP, ESR, LIPASE, TSH3 #### [address] MCH (RBC) [Entitic mass] 29.0 pg Normal 24.7-34.3 [facility] Comment on above: Performed By: #### C BC, MG, CMP, ESR, LIPASE, TSH3 #### [address] MCV (RBC) [Entitic vol] 86.4 fL Normal 80-100 [facility] Comment on above: Performed By: #### C BC, MG, CMP, ESR, LIPASE, TSH3 #### [address] Mean Corpuscular HGB Conc 33.6 g/dL Normal 32.0-35.0 [facility] Comment on above: Performed By: #### C BC, MG, CMP, ESR, LIPASE, TSH3 #### [address] Monocytes (Bld) [#/Vol] 0.5 10*3/uL Normal 0.0-0.8 [facility] Comment on above: Performed By: #### C BC, MG, CMP, ESR, LIPASE, TSH3 #### [address] Monocytes/100 WBC (Bld) 17.56 % Normal 0.00-20.00 [facility] Comment on above: Performed By: #### C BC, MG, CMP, ESR, LIPASE, TSH3 #### [address] Monocytes/100 WBC (Bld) 4.3 % Normal . [facility] Comment on above: Performed By: #### C BC, MG, CMP, ESR, LIPASE, TSH3 #### [address] Neutrophils (Bld) [#/Vol] 9.1 10*3/uL High 1.8-7.7 [facility] Comment on above: Performed By: #### C BC, MG, CMP, ESR, LIPASE, TSH3 #### [address] Neutrophils/100 WBC (Bld) 80.3 % Normal . [facility] Comment on above: Performed By: #### C BC, MG, CMP, ESR, LIPASE, TSH3 #### [address] NRBC% 0.0 /100{WBC} Normal 0-0.5 [facility] Comment on above: Performed By: #### C BC, MG, CMP, ESR, LIPASE, TSH3 #### [address] Platelet mean volume (Bld) [Entitic vol] 7.9 fL Normal 6.3-10.7 [facility] Comment on above: Performed By: #### C BC, MG, CMP, ESR, LIPASE, TSH3 #### [address] Platelets (Bld) [#/Vol] 294 10*3/uL Normal 150-450 [facility] Comment on above: Performed By: #### C BC, MG, CMP, ESR, LIPASE, TSH3 #### [address] RBC (Bld) [#/Vol] 4.18 10*6/uL Normal 3.60-5.00 [facility] Comment on above: Performed By: #### C BC, MG, CMP, ESR, LIPASE, TSH3 #### [address] WBC (Bld) [#/Vol] 11.3 10*3/uL Normal 3.8-11.6 [facility] Comment on above: Performed By: #### C BC, MG, CMP, ESR, LIPASE, TSH3 #### [address] Comprehensive Metabolic Pane eagle 11-15-2022 Albumin [Mass/Vol] 4.1 g/dL Normal 3.5-5.7 [facility] Comment on above: Performed By: #### C BC, MG, CMP, ESR, LIPASE, TSH3 #### [address] Albumin/Globulin [Mass ratio] 1.6 {ratio} Normal [facility] Comment on above: Performed By: #### C BC, MG, CMP, ESR, LIPASE, TSH3 #### [address] ALP [Catalytic activity/Vol] 48 U/L Normal 34-104 [facility] Comment on above: Performed By: #### C BC, MG, CMP, ESR, LIPASE, TSH3 #### [facility] [address] ALT [Catalytic activity/Vol] 27 U/L Normal 7-52 [facility] Comment on above: Performed By: #### C BC, MG, CMP, ESR, LIPASE, TSH3 #### [facility] [address] Anion gap [Moles/Vol] 10.2 mmol/L Normal 6.0-15.[address] [facility] Comment on above: Performed By: #### C BC, MG, CMP, ESR, LIPASE, TSH3 #### [address] AST [Catalytic activity/Vol] 25 U/L Normal 13-39 [facility] Comment on above: Performed By: #### C BC, MG, CMP, ESR, LIPASE, TSH3 #### [address] Bilirubin [Mass/Vol] 0.5 mg/dL Normal 0.3-1.0 [facility] Comment on above: Performed By: #### C BC, MG, CMP, ESR, LIPASE, TSH3 #### [address] Calcium [Mass/Vol] 8.5 mg/dL Low 8.6-10.3 [facility] Comment on above: Performed By: #### C BC, MG, CMP, ESR, LIPASE, TSH3 #### [address] Chloride [Moles/Vol] 106 mmol/L Normal 98-107 [facility] Comment on above: Performed By: #### C BC, MG, CMP, ESR, LIPASE, TSH3 #### [facility] [address] CO2 [Moles/Vol] 25.2 mmol/L Normal 21.0-31.0 [facility] Comment on above: Performed By: #### C BC, MG, CMP, ESR, LIPASE, TSH3 #### [address] Creatinine [Mass/Vol] 0.75 mg/dL Normal 0.60-1.20 [facility] Comment on above: Performed By: #### C BC, MG, CMP, ESR, LIPASE, TSH3 #### [address] Creatinine Clr Calc Pharmacy 86.61 [facility] Comment on above: Result Comment: PERF ORMED BY: [place] [id number] PATHOLOGIST CIRCUIT BOARD DRAFTER RADHA GARCIA M.D. Performed By: #### C BC, MG, CMP, ESR, LIPASE, TSH3 #### [address] GFR/1.73 sq M.predicted MDRD (S/P/Bld) [Vol rate/Area] mL/min/{1.73_m2} [facility] Comment on above: Performed By: #### C BC, MG, CMP, ESR, LIPASE, TSH3 #### [address] Globulin (S) [Mass/Vol] 2.6 g/dL [facility] Comment on above: Performed By: #### C BC, MG, CMP, ESR, LIPASE, TSH3 #### [address] Glucose [Mass/Vol] 81 mg/dL Normal 70-100 [facility] Comment on above: Result Comment: [place] Glucose Reference Range is dependent on time and content of last meal. Glucose of more than 200 mg/dL in a nonstressed, ambulatory subject supports the diagnosis of Diabetes Mellitus. ADA recommended reference range Performed By: #### C BC, MG, CMP, ESR, LIPASE, TSH3 #### [address] Potassium [Moles/Vol] 3.4 mmol/L Low 3.5-5.1 [facility] Comment on above: Performed By: #### C BC, MG, CMP, ESR, LIPASE, TSH3 #### [facility] [address] Protein [Mass/Vol] 6.7 g/dL Normal 6.4-8.9 [facility] Comment on above: Performed By: #### C BC, MG, CMP, ESR, LIPASE, TSH3 #### [facility] [address] Sodium [Moles/Vol] 138 mmol/L Normal 136-145 [facility] Comment on above: Performed By: #### C BC, MG, CMP, ESR, LIPASE, TSH3 #### [facility] [address] Urea nitrogen [Mass/Vol] 5 mg/dL Low 7-25 [facility] Comment on above: Performed By: #### C BC, MG, CMP, ESR, LIPASE, TSH3 #### [address] DRUG SCREEN RAPID (URINE)on 11-15-2022 AMP Negative Normal NEGATIVE [facility] Comment on above: Performed By: #### D DERIC RODRÍGUEZ UMICRO #### [facility] [address] [address] [address] Tori Thomas BAR Negative Normal NEGATIVE [facility] Comment on above: Performed By: #### D DERIC RODRÍGUEZ UMICRO #### [facility] [address] [address] [address] Tori Thomas BUP Negative Normal NEGATIVE [facility] Comment on above: Performed By: #### D DERIC RODRÍGUEZ UMICRO #### [facility] [address] [address] [address] Tori Thomas BZO Positive Abnormal NEGATIVE [facility] Comment on above: Performed By: #### D DERIC RODRÍGUEZ UMICRO #### [facility] [facility] [address] [address] [address] Tori Thomas HARESH Negative Normal NEGATIVE [facility] Comment on above: Performed By: #### D DERIC RODRÍGUEZ UMICRO #### [facility] [address] [address] [address] Tori Thomas CUT-OFFS SEE BELOW Normal [facility] Comment on above: Result Comment: AMP (Amphetamine): [...] By: #### D DERIC RODRÍGUEZ UMICRO #### [facility] [address] [place] [address] Dr. Tori Thomas DRUG CUT HEADER DRUG CLASS TEST SYST EM CUT-OFF CONCENTRATIONS ARE FOLLOWS: Normal [facility] Comment on above: Performed By: #### D DERIC RODRÍGUEZ UMICRO #### [facility] [address] [address] [address] Tori Thomas mAMP Negative Normal NEGATIVE [facility] Comment on above: Performed By: #### D DERIC RODRÍGUEZ UMICRO #### [facility] [address] [place] [address] Dr. Tori Thomas MTD Negative Normal NEGATIVE [facility] Comment on above: Performed By: #### D DERIC RODRÍGUEZ UMICRO #### [facility] [address] [address] [address] Tori Thomas OPI Positive Abnormal NEGATIVE [facility] Comment on above: Performed By: #### D DERIC RODRÍGUEZ UMICRO #### [facility] [address] [place] [address] Dr. Tori Thomas OXY Positive Abnormal NEGATIVE [facility] Comment on above: Performed By: #### D RUGRPD, ERUR, UMICRO #### [facility] [address] [address] [address] Tori Thomas PCP Negative Normal NEGATIVE [facility] Comment on above: Performed By: #### D RUGRPD, ERUR, UMICRO #### [facility] [address] [address] [address] Tori Thomas PPX Negative Normal NEGATIVE [facility] Comment on above: Performed By: #### D RUGRPD, ERUR, UMICRO #### [facility] [address] [address] [address] Tori Thomas TCA Negative Normal NEGATIVE [facility] Comment on above: Performed By: #### D RUGRPD, ERUR, UMICRO #### [facility] [address] [address] [address] Tori Thomas THC Positive Abnormal NEGATIVE [facility] Comment on above: Performed By: #### D RUGRPD, ERUR, UMICRO #### [facility] [address] [address] [address] Tori Thomas Dipstick and Microscopicon 0 11-15-2022 Appearance (U) Turbid Critically abnormal Clear [facility] Comment on above: Order Comment: Name Collection Type:: Clean-Voided Midstream Performed By: #### C BC, MG, CMP, ESR, LIPASE, TSH3 #### [facility] [address] [place] [address] [place] Bacteria,Urine 2+ High None Seen [facility] Comment on above: Order Comment: Name Collection Type:: Clean-Voided Midstream Performed By: #### C BC, MG, CMP, ESR, LIPASE, TSH3 #### [facility] [address] [place] [address] [place] Bilirubin,Urine Negative Normal Negative [facility] Comment on above: Order Comment: Name Collection Type:: Clean-Voided Midstream Performed By: #### C BC, MG, CMP, ESR, LIPASE, TSH3 #### [facility] [address] Color (U) Yellow Normal Yellow [facility] Comment on above: Order Comment: Name Collection Type:: Clean-Voided Midstream Performed By: #### C BC, MG, CMP, ESR, LIPASE, TSH3 #### [facility] [address] Glucose Ql (U) Normal Normal Normal [facility] Comment on above: Order Comment: Name Collection Type:: Clean-Voided Midstream Performed By: #### C BC, MG, CMP, ESR, LIPASE, TSH3 #### [facility] [address] [place] [address] [place] Hyaline Casts,Urine 0-8 Normal 0-8 [facility] Comment on above: Order Comment: Name Collection Type:: Clean-Voided Midstream Performed By: #### C BC, MG, CMP, ESR, LIPASE, TSH3 #### [facility] [address] [place] [address] Ketones Ql (U) Negative Normal Negative [facility] Comment on above: Order Comment: Name Collection Type:: Clean-Voided Midstream Performed By: #### C BC, MG, CMP, ESR, LIPASE, TSH3 #### [facility] [address] [place] [address] Leukocyte esterase Test strip Ql (U) 4+ High Negative [facility] Comment on above: Order Comment: Name Collection Type:: Clean-Voided Midstream Performed By: #### C BC, MG, CMP, ESR, LIPASE, TSH3 #### [facility] [address] [place] [address] [place] Nitrite,Urine Positive High Negative [facility] Comment on above: Order Comment: Name Collection Type:: Clean-Voided Midstream Performed By: #### C BC, MG, CMP, ESR, LIPASE, TSH3 #### [facility] [address] [place] [address] [place] Occult Blood,Urine 1+ High Negative [facility] Comment on above: Order Comment: Name Collection Type:: Clean-Voided Midstream Result Comment: PERF ORMED BY: [place] [id number] PATHOLOGIST [employer] RADHA GARCIA M.D. Performed By: #### C BC, MG, CMP, ESR, LIPASE, TSH3 #### [address] pH (U) 6.0 [pH] Normal 5.0-9.0 [facility] Comment on above: Order Comment: Name Collection Type:: Clean-Voided Midstream Performed By: #### C BC, MG, CMP, ESR, LIPASE, TSH3 #### [address] Protein (U) [Mass/Vol] 100 mg/dL High Negative [facility] Comment on above: Order Comment: Name Collection Type:: Clean-Voided Midstream Performed By: #### C BC, MG, CMP, ESR, LIPASE, TSH3 #### [address] RBC,Urine 5-9 High 0-4 [facility] Comment on above: Order Comment: Name Collection Type:: Clean-Voided Midstream Performed By: #### C BC, MG, CMP, ESR, LIPASE, TSH3 #### [address] Specificy [place],Urine 1.015 Normal 1.001-1.03 0 [facility] Comment on above: Order Comment: Name Collection Type:: Clean-Voided Midstream Performed By: #### C BC, MG, CMP, ESR, LIPASE, TSH3 #### [address] Squamous Epithelial Cell,Urine 1-2 Normal 0-2 [facility] Comment on above: Order Comment: Name Collection Type:: Clean-Voided Midstream Performed By: #### C BC, MG, CMP, ESR, LIPASE, TSH3 #### [address] Urobilinogen,Urine Normal Normal Normal [facility] Comment on above: Order Comment: Name Collection Type:: Clean-Voided Midstream Performed By: #### C BC, MG, CMP, ESR, LIPASE, TSH3 #### [facility] [address] [place] [address] WBC,Urine Innumerable High 0-4 [facility] Comment on above: Order Comment: Name Collection Type:: Clean-Voided Midstream Performed By: #### C BC, MG, CMP, ESR, LIPASE, TSH3 #### [address] Yeast,Urine None Seen Normal None Seen [facility] Comment on above: Order Comment: Name Collection Type:: Clean-Voided Midstream Result Comment: PERF ORMED BY: [place] [id number] PATHOLOGIST [employer] RADHA GARCIA M.D. Performed By: #### C BC, MG, CMP, ESR, LIPASE, TSH3 #### [address] Drug Screen,Urineon 11-16-19 23 Amphetamine Screen,Urine Negative Normal Negative [facility] Comment on above: Performed By: #### C BC, MG, CMP, ESR, LIPASE, TSH3 #### [address] Barbiturate Screen,Urine Negative Normal Negative [facility] Comment on above: Performed By: #### C BC, MG, CMP, ESR, LIPASE, TSH3 #### [address] Benzodiazepines Screen,Urine Negative Normal Negative [facility] Comment on above: Performed By: #### C BC, MG, CMP, ESR, LIPASE, TSH3 #### [address] Cannabinoid Screen,Urine Positive High Negative [facility] Comment on above: Result Comment: Thes e are unconfirmed results and should not be used for legal purposes. Drug Cut-Off Concentration: AMPH 1000 ng/mL CALIN 200 ng/mL LEONIDES 200 ng/mL COCM 300 ng/mL OP 300 ng/mL PCP 25 ng/mL THC 20 ng/mL PERFORMED BY: [place] [id number] PATHOLOGIST [employer] RADHA GARCIA M.D. Performed By: #### C BC, MG, CMP, ESR, LIPASE, TSH3 #### [address] Cocaine Screen,Urine Negative Normal Negative [facility] Comment on above: Performed By: #### C BC, MG, CMP, ESR, LIPASE, TSH3 #### [facility] [address] Opiate Screen,Urine Positive High Negative [facility] Comment on above: Performed By: #### C BC, MG, CMP, ESR, LIPASE, TSH3 #### [address] Phencyclidine Screen,Urine Negative Normal Negative [facility] Comment on above: Performed By: #### C BC, MG, CMP, ESR, LIPASE, TSH3 #### [address] ECG 12 lead ECGon 11-15-2022 ECG 12 lead ECG [facility] [place] [address] [place] [address] Electrocardiograph Report Signed Patient: Raquel Correa MR#: [id number] : 1985 Acct:[id number] Age/Sex: 37 / F ADM Date: 11/15/22 Loc: ER Room: Type: [facility] ER Attending Dr: Ordering Provider: Van [...] MUS Signed By Van Rosen DO 0106 [facility] ER URINE PROFILEon 3 Bilirubin Ql (U) Negative Normal NEGATIVE [facility] Comment on above: Performed By: #### D RUGRPD, ERUR, UMICRO #### [facility] [address] [address] [address] Tori Thomas Clarity (U) CLEAR Normal CLEAR [facility] Comment on above: Performed By: #### D RUGRPD, ERUR, UMICRO #### [facility] [address] [address] [address] Tori Thomas Color (U) LT. YELLOW Normal YELLOW [facility] Comment on above: Performed By: #### D RUGRPD, ERUR, UMICRO #### [facility] [address] [place] [address] Dr. Tori NEAL A micrscopic examina tion will be performed if indicated. Normal [facility] Comment on above: Performed By: #### D RUGRPD, ERUR, UMICRO #### [facility] [address] [place] [address] Dr. Tori Thomas Glucose Ql (U) Negative Normal NEGATIVE [facility] Comment on above: Performed By: #### D RUGRPD, ERUR, UMICRO #### [facility] [address] [address] [address] Tori Thomas Hemoglobin Ql (U) SMALL Abnormal NEGATIVE [facility] Comment on above: Performed By: #### D RUGRPD, ERUR, UMICRO #### [facility] [address] [address] [address] Tori Thomas Ketones Ql (U) Negative Normal NEGATIVE [facility] Comment on above: Performed By: #### D RUGRPD, ERUR, UMICRO #### [facility] [address] [address] [address] Tori Thomas LEUKOCYTES MODERATE Abnormal NEGATIVE [facility] Comment on above: Performed By: #### D RUGRPD, ERUR, UMICRO #### [facility] [address] [address] [address] Tori Thomas Nitrite Ql (U) Positive Abnormal NEGATIVE [facility] Comment on above: Performed By: #### D RUGRPD, ERUR, UMICRO #### [facility] [address] [address] [address] Tori Thomas pH (U) 5.5 [pH] Normal 5-9 [facility] Comment on above: Performed By: #### D RUGRPD, ERUR, UMICRO #### [facility] [address] [address] [address] Tori Thomas SPEC GRAVITY >=1.030 Abnormal 1.005-<=1. 025 [facility] Comment on above: Performed By: #### D RUGLUDWIN, ERUR, UMICRO #### [facility] [address] [place] [address] Dr. Tori Thomas UA PROTEIN TRACE Normal NEGATIVE/ TRACE [facility] Comment on above: Performed By: #### D RUGLUDWIN, ERUR, UMICRO #### [facility] [address] [place] [address] Dr. Tori Thomas UR MICRO IND INDICATED Normal [facility] Comment on above: Performed By: #### D RUGLUDWIN, ERUR, UMICRO #### [facility] [address] [address] [address] Tori Thomas Urobilinogen Qn (U) 0.2 {Diana'U}/dL Normal 0.2 - 1. 0 [facility] Comment on above: Performed By: #### D RUGRPD, ERUR, UMICRO #### [facility] [address] [place] [address] Dr. Tori Thomas ETHANOL (BLD ALC)on 11-16-19 23 ALC NOTE NOTE: 80 mg/dl is th e legal limit for a blood alcohol level Normal [facility] Comment on above: Performed By: #### P T, PTT #### [facility] [address] [place] [address] Dr. Tori Thomas Ethanol [Mass/Vol] mg/dL Normal [facility] Comment on above: Performed By: #### P T, PTT #### [facility] [address] [address] [address] Tori Thomas Ethyl Alcohol Profileon 10-26 Ethanol [Mass/Vol] mg/dL Normal [facility] Comment on above: Performed By: #### C BC, MG, CMP, ESR, LIPASE, TSH3 #### [facility] [address] Percent Ethanol Not performed Normal [facility] Comment on above: Result Comment: PERF ORMED BY: [place] [id number] PATHOLOGIST [employer] RADHA GARCIA M.D. Performed By: #### C BC, MG, CMP, ESR, LIPASE, TSH3 #### [facility] [address] MAGNESIUMon 11-15-2022 Magnesium [Mass/Vol] 1.9 mg/dL Normal 1.8-2.4 [facility] Comment on above: Performed By: #### P T, PTT #### [facility] [address] [address] [address] Tori Thomas PROF CHEM 8 (BAS METB)on Anion gap [Moles/Vol] 13.5 mmol/L Normal [facility] Comment on above: Performed By: #### P T, PTT #### [facility] [address] [place] [address] Dr. Tori Thomas Calcium [Mass/Vol] 8.0 mg/dL Critically low 8.5-10.1 [facility] Comment on above: Performed By: #### P T, PTT #### [facility] [address] [place] [address] Dr. Tori Thomas Chloride [Moles/Vol] 108 mmol/L Critically high 98-107 [facility] Comment on above: Performed By: #### P T, PTT #### [facility] [address] [address] [address] Tori Thomas CO2 [Moles/Vol] 25.4 mmol/L Normal 21.0-32.0 [facility] Comment on above: Performed By: #### P T, PTT #### [facility] [address] [address] [address] Tori Thomas Creatinine [Mass/Vol] 0.79 mg/dL Normal 0.55-1.02 [facility] Comment on above: Performed By: #### P T, PTT #### [facility] [address] [address] [address] Tori Thomas EGFR-AF MAURITANIAN >60 Normal >=60 [facility] Comment on above: Performed By: #### P T, PTT #### [facility] [address] [place] [address] Dr. Tori Thomas EGFR-NON AF MAURITANIAN >60 Normal >=60 [facility] Comment on above: Performed By: #### P T, PTT #### [facility] [address] [address] [address] Tori Thomas Glucose [Mass/Vol] 126 mg/dL Critically high 74-106 [facility] Comment on above: Performed By: #### P T, PTT #### [facility] [address] [place] [address] Dr. Tori Thomas Potassium [Moles/Vol] 3.9 mmol/L Normal 3.5-5.1 [facility] Comment on above: Performed By: #### P T, PTT #### [facility] [address] [place] [address] Dr. Tori Thomas Sodium [Moles/Vol] 143 mmol/L Normal 136-145 [facility] Comment on above: Performed By: #### P T, PTT #### [facility] [address] [address] [address] Tori Thomas Urea nitrogen [Mass/Vol] 7.0 mg/dL Normal 7.0-18.0 [facility] Comment on above: Performed By: #### P T, PTT #### [facility] [address] [address] [address] Tori Thomas Urea nitrogen/Creatinine [Mass ratio] 8.9 mg/mg Normal [facility] Comment on above: Performed By: #### P T, PTT #### [facility] [address] [address] [address] Tori Thomas Anion gap [Moles/Vol] 14.4 mmol/L Normal [facility] Comment on above: Performed By: #### B MP #### [facility] [address] [address] [address] Tori Thomas Calcium [Mass/Vol] 7.8 mg/dL Critically low 8.5-10.1 [facility] Comment on above: Performed By: #### B MP #### [facility] [address] [place] [address] Dr. Tori Thomas Chloride [Moles/Vol] 107 mmol/L Normal 98-107 [facility] Comment on above: Performed By: #### B MP #### [facility] [address] [address] [address] Tori Thomas CO2 [Moles/Vol] 23.6 mmol/L Normal 21.0-32.0 [facility] Comment on above: Performed By: #### B MP #### [facility] [address] [place] [address] Dr. Tori Thomas Creatinine [Mass/Vol] 0.78 mg/dL Normal 0.55-1.02 [facility] Comment on above: Performed By: #### B MP #### [facility] [address] [place] [address] Dr. Tori Thomas EGFR-AF MAURITANIAN >60 Normal >=60 [facility] Comment on above: Performed By: #### B MP #### [facility] [address] [place] [address] Dr. Tori Thomas EGFR-NON AF MAURITANIAN >60 Normal >=60 [facility] Comment on above: Performed By: #### B MP #### [facility] [address] [place] [address] Dr. Tori Thomas Glucose [Mass/Vol] 147 mg/dL Critically high 74-106 [facility] Comment on above: Performed By: #### B MP #### [facility] [address] [address] [address] Tori Thomas Potassium [Moles/Vol] 3.0 mmol/L Critically low 3.5-5.1 [facility] Comment on above: Performed By: #### B MP #### [facility] [address] [address] [address] Tori Thomas Sodium [Moles/Vol] 142 mmol/L Normal 136-145 [facility] Comment on above: Performed By: #### B MP #### [facility] [address] [address] [address] Tori Thomas Urea nitrogen [Mass/Vol] 7.0 mg/dL Normal 7.0-18.0 [facility] Comment on above: Performed By: #### B MP #### [facility] [address] [address] [address] Tori Thomas Urea nitrogen/Creatinine [Mass ratio] 9.0 mg/mg Normal [facility] Comment on above: Performed By: #### B MP #### [facility] [address] [address] [address] Tori Thomas Anion gap [Moles/Vol] 14.3 mmol/L Normal [facility] Comment on above: Performed By: #### P T, PTT #### [facility] [address] [address] [address] Tori Thomas Calcium [Mass/Vol] 7.5 mg/dL Critically low 8.5-10.1 [facility] Comment on above: Performed By: #### P T, PTT #### [facility] [address] [address] [address] Tori Thomas Chloride [Moles/Vol] 108 mmol/L Critically high 98-107 [facility] Comment on above: Performed By: #### P T, PTT #### [facility] [address] [address] [address] Tori Thomas CO2 [Moles/Vol] 22.8 mmol/L Normal 21.0-32.0 [facility] Comment on above: Performed By: #### P T, PTT #### [facility] [address] [address] [address] Tori Thomas Creatinine [Mass/Vol] 0.73 mg/dL Normal 0.55-1.02 [facility] Comment on above: Performed By: #### P T, PTT #### [facility] [address] [address] [address] Tori Thomas EGFR-AF MAURITANIAN >60 Normal >=60 [facility] Comment on above: Performed By: #### P T, PTT #### [facility] [address] [address] [address] Tori Thomas EGFR-NON AF MAURITANIAN >60 Normal >=60 [facility] Comment on above: Performed By: #### P T, PTT #### [facility] [address] [address] [address] Tori Thomas Glucose [Mass/Vol] 135 mg/dL Critically high 74-106 [facility] Comment on above: Performed By: #### P T, PTT #### [facility] [address] [address] [address] Tori Thomas Potassium [Moles/Vol] 3.1 mmol/L Critically low 3.5-5.1 [facility] Comment on above: Performed By: #### P T, PTT #### [facility] [address] [address] [address] Tori Thomas Sodium [Moles/Vol] 142 mmol/L Normal 136-145 [facility] Comment on above: Performed By: #### P T, PTT #### [facility] [address] [address] [address] Tori Thomas Urea nitrogen [Mass/Vol] 7.0 mg/dL Normal 7.0-18.0 [facility] Comment on above: Performed By: #### P T, PTT #### [facility] [address] [address] [address] Tori Thomas Urea nitrogen/Creatinine [Mass ratio] 9.6 mg/mg Normal [facility] Comment on above: Performed By: #### P T, PTT #### [facility] [address] [address] [address] Tori Thomas TSHon 11-15-2022 TSH 1.722 uIU/mL Normal 0.358-3.74 0 [facility] Comment on above: Performed By: #### P T, PTT #### [facility] [address] [address] [address] Tori Thomas URINE MICROSCOPIC ONLYon BACTERIA LARGE Abnormal NONE SEEN [facility] Comment on above: Performed By: #### D RUGRPD, ERUR, UMICRO #### [facility] [address] [address] [address] Tori Thomas Bacteria identified Cx Nom (U) INDICATED Normal [facility] Comment on above: Performed By: #### D RUGRPD, ERUR, UMICRO #### [facility] [address] [place] [address] Dr. Tori Thomas CA OX CRYSTALS RARE Normal [facility] Comment on above: Performed By: #### D RUGRPD, ERUR, UMICRO #### [facility] [address] [address] [address] Tori Thomas CAST NONE SEEN Normal NONE SEEN The [facility] Comment on above: Performed By: #### D RUGRPD, ERUR, UMICRO #### [facility] [address] [address] [address] Tori Thomas Crystals LM Nom (Urine sed) SEEN Abnormal NONE SEEN The [facility] Comment on above: Performed By: #### D RUGRPD, ERUR, UMICRO #### [facility] [address] [address] [address] Tori Thomas Epithelial cells LM Ql (Urine sed) FEW Abnormal NONE SEEN /RARE The [facility] Comment on above: Performed By: #### D RUGRPD, ERUR, UMICRO #### [facility] [address] [address] [address] Tori Thomas MUCOUS NONE SEEN Normal NONE SEEN The [facility] Comment on above: Performed By: #### D RUGRPD, DERIC, UMICRO #### [facility] [address], [place] [address] Dr. Tori Thomas RBC 0-2 Normal 0-2 [facility] Comment on above: Performed By: #### D ANNE, AMANDAR, UMICRO #### [facility] [address], [place] [address] Dr. Tori Thomas WBC 75-100 Abnormal NONE SEEN [facility] Comment on above: Performed By: #### D ANNE, DERIC, UMICRO #### [facility] [address], [place] [address] Dr. Tori Thomas Urine Cultureon 11-15-2022 Bacteria identified Cx Nom (U) ORGANISM: Escherichia coli (ESBL) (O:ESCCOLESBL) [place] Count >100,000 Aerobic DIVYA Charge (NMIC56) SUSCEPTIBILITY [...] RESISTANT TO ALL B-LACTAM DRUGS. PERFORMED BY: [place] [id number] PATHOLOGIST CIRCUIT BOARD DRAFTER RADHA GARCIA M.D. Normal [facility] Comment on above: Performed By: #### C BC, MG, CMP, ESR, LIPASE, TSH3 #### [address] CBC AUTO DIFFon 11-14-2022 BASO # 0.0 103/ul Normal 0.0-0.1 [facility] Comment on above: Performed By: #### P T, PTT #### [facility] [address] [place] [address] Dr. Tori Thomas Basophils/100 WBC (Bld) 0.2 % Normal 0.2-2.0 [facility] Comment on above: Performed By: #### P T, PTT #### [facility] [address] [address] [address] Tori Thomas EO # 0.1 103/ul Normal 0.0-0.7 [facility] Comment on above: Performed By: #### P T, PTT #### [facility] [address] [address] [address] Tori Thomas Eosinophils/100 WBC (Bld) 0.8 % Critically low 0.9-7.0 [facility] Comment on above: Performed By: #### P T, PTT #### [facility] [address] [address] [address] Tori Thomas Erythrocyte distribution width (RBC) [Ratio] 13.9 % Normal 11.0-15.0 [facility] Comment on above: Performed By: #### P T, PTT #### [facility] [address] [place] [address] Dr. Tori Thomas Hematocrit (Bld) [Volume fraction] 43.0 % Normal 36.0-48.0 [facility] Comment on above: Performed By: #### P T, PTT #### [facility] [address] [place] [address] Dr. Tori Thomas Hemoglobin (Bld) [Mass/Vol] 14.3 g/dL Normal 12.0-16.0 [facility] Comment on above: Performed By: #### P T, PTT #### [facility] [address] [place] [address] Dr. Tori Thomas IG # 0.04 10e3/ul Critically high 0.00-0.03 [facility] Comment on above: Performed By: #### P T, PTT #### [facility] [address] [place] [address] Dr. Tori Thomas IG % 0.3 % Normal 0.0-0.5 [facility] Comment on above: Performed By: #### P T, PTT #### [facility] [address] [place] [address] Dr. Tori Thomas LYMPH # 3.9 103/ul Critically high 1.2-3.8 [facility] Comment on above: Performed By: #### P T, PTT #### [facility] [address] [place] [address] Dr. Tori Thomas Lymphocytes/100 WBC (Bld) 28.8 % Normal 20.5-60.0 [facility] Comment on above: Performed By: #### P T, PTT #### [facility] [address] [place] [address] Dr. Tori Thomas MANUAL DIFF REQ NO Normal The [facility] Comment on above: Performed By: #### P T, PTT #### [facility] [address] [place] [address] Dr. Tori Thomas MCH (RBC) [Entitic mass] 28.9 pg Normal 26.7-34.0 [facility] Comment on above: Performed By: #### P T, PTT #### [facility] [address] [place] [address] Dr. Tori Thomas MCHC (RBC) [Mass/Vol] 33.3 g/dL Normal 29.9-35.2 [facility] Comment on above: Performed By: #### P T, PTT #### [facility] [address] [place] [address] Dr. Tori Thomas MCV (RBC) [Entitic vol] 87.0 fL Normal 81.0-99.0 [facility] Comment on above: Performed By: #### P T, PTT #### [facility] [address] [place] [address] Dr. Tori Thomas MONO # 0.7 103/ul Normal 0.3-0.8 [facility] Comment on above: Performed By: #### P T, PTT #### [facility] [address] [place] [address] Dr. Tori Thomas Monocytes/100 WBC (Bld) 4.9 % Normal 1.7-12.0 [facility] Comment on above: Performed By: #### P T, PTT #### [facility] [address] [place] [address] Dr. Tori Thomas NEUT # 8.8 103/ul Critically high 1.4-6.5 [facility] Comment on above: Performed By: #### P T, PTT #### [facility] [address] [place] [address] Dr. Tori Thomas Neutrophils/100 WBC (Bld) 65.0 % Normal 43.0-75.0 [facility] Comment on above: Performed By: #### P T, PTT #### [facility] [address] [place] [address] Dr. Tori Thomas Platelet mean volume (Bld) [Entitic vol] 9.6 fL Normal 9.5-13.5 [facility] Comment on above: Performed By: #### P T, PTT #### [facility] [address] [place] [address] Dr. Tori Thomas PLT 406 103/ul Normal 150-450 [facility] Comment on above: Performed By: #### P T, PTT #### [facility] [address] [place] [address] Dr. Tori Thomas RBC 4.94 106/ul Normal 4.20-5.40 [facility] Comment on above: Performed By: #### P T, PTT #### [facility] [address] [place] [address] Dr. Tori Thomas WBC 13.6 103/ul Critically high 4.0-11.0 [facility] Comment on above: Performed By: #### P T, PTT #### [facility] [address] [place] [address] Dr. Tori Thomas MAGNESIUMon 11-14-2022 Magnesium [Mass/Vol] 1.5 mg/dL Critically low 1.8-2.4 [facility] Comment on above: Performed By: #### U AMIC #### [facility] [address] [place] [address] Dr. Tori Thomas PREG HCG QUALon 11-14-2022 , QUAL Negative Normal NEGATIVE [facility] Comment on above: Performed By: #### P T, PTT #### [facility] [address] [place] [address] Dr. Tori Thomas PROF 14(COMP METB)on 023 Albumin [Mass/Vol] 4.0 g/dL Normal 3.4-5.0 [facility] Comment on above: Performed By: #### P T, PTT #### [facility] [address] [place] [address] Dr. Tori Thomas Albumin/Globulin [Mass ratio] 1.0 {ratio} Normal [facility] Comment on above: Performed By: #### P T, PTT #### [facility] [address] [place] [address] Dr. Tori Thomas ALP [Catalytic activity/Vol] 62 U/L Normal 46-116 [facility] Comment on above: Performed By: #### P T, PTT #### [facility] [address] [place] [address] Dr. Tori Thomas ALT [Catalytic activity/Vol] 40 U/L Normal 14-59 [facility] Comment on above: Performed By: #### P T, PTT #### [facility] [address] [place] [address] Dr. Tori Thomas Anion gap [Moles/Vol] 17.3 mmol/L Normal [facility] Comment on above: Performed By: #### P T, PTT #### [facility] [address] [address] [address] Tori Thomas AST [Catalytic activity/Vol] 32 U/L Normal 15-37 [facility] Comment on above: Performed By: #### P T, PTT #### [facility] [address] [address] [address] Tori Thomas Bilirubin [Mass/Vol] 0.5 mg/dL Normal 0.2-1.0 [facility] Comment on above: Performed By: #### P T, PTT #### [facility] [address] [address] [address] Tori Thomas Calcium [Mass/Vol] 8.5 mg/dL Normal 8.5-10.1 [facility] Comment on above: Performed By: #### P T, PTT #### [facility] [address] [place] [address] Dr. Tori Thomas Chloride [Moles/Vol] 101 mmol/L Normal 98-107 [facility] Comment on above: Performed By: #### P T, PTT #### [facility] [address] [place] [address] Dr. Tori Thomas CO2 [Moles/Vol] 23.6 mmol/L Normal 21.0-32.0 [facility] Comment on above: Performed By: #### P T, PTT #### [facility] [address] [address] [address] Tori Thomas Creatinine [Mass/Vol] 1.02 mg/dL Normal 0.55-1.02 [facility] Comment on above: Performed By: #### P T, PTT #### [facility] [address] [address] [address] Tori Thomas EGFR-AF MAURITANIAN >60 Normal >=60 [facility] Comment on above: Performed By: #### P T, PTT #### [facility] [address] [place] [address] Dr. Tori Thomas EGFR-NON AF MAURITANIAN >60 Normal >=60 [facility] Comment on above: Performed By: #### P T, PTT #### [facility] [address] [place] [address] Dr. Tori Thomas Globulin (S) [Mass/Vol] 3.9 g/dL Normal [facility] Comment on above: Performed By: #### P T, PTT #### [facility] [address] [place] [address] Dr. Tori Thomas Glucose [Mass/Vol] 172 mg/dL Critically high 74-106 [facility] [place] Comment on above: Performed By: #### P T, PTT #### [facility] [address] [place] [address] Dr. Tori Thomas Potassium [Moles/Vol] 2.2 mmol/L Critically low 3.5-5.1 [facility] Comment on above: Performed By: #### P T, PTT #### [facility] [address] [place] [address] Dr. Tori Thomas Protein [Mass/Vol] 7.9 g/dL Normal 6.4-8.2 [facility] Comment on above: Performed By: #### P T, PTT #### [facility] [address] [place] [address] Dr. Toir Thomas Sodium [Moles/Vol] 110 mmol/L Critically low 136-145 Th [facility] Comment on above: Performed By: #### P T, PTT #### [facility] [address] [place] [address] Dr. Tori Thomas Urea nitrogen [Mass/Vol] 7.0 mg/dL Normal 7.0-18.0 [facility] Comment on above: Performed By: #### P T, PTT #### [facility] [address] [place] [address] Dr. Tori Thomas Urea nitrogen/Creatinine [Mass ratio] 6.9 mg/mg Normal [facility] Comment on above: Performed By: #### P T, PTT #### [facility] [address] [place] [address] Dr. Tori Thomas Lab Reportson 10-20-2022 Lab Reports [id number]:127 Normal [facility] Patient Educationon 10-07-19 Patient Education Urology Kidney [...] these instructions at home: Medicines ? Take jqdd-klq-gvgscfd and prescription medicines only as told by [...] 11/29/2008 Document Revised: 10/30/2019 Document Reviewed: 10/30/2019 [employer] Patient Education ? 2019 SQMOS. Normal [facility] Urology Office/Clinic Noteon 10-06-2022 Urology Office/Clinic Note [...] yes avoids baths/hot tubs yes avoids scented [employer] products yes urinates after sexual activity yes Today we discussed the following methods to decrease frequency of UTIs: 1) Increase fluids. Aim for at least 2L daily. 2) Ensure bladder emptying fully. PVR [id number] . 3) We discussed that there is [...] stone (N20.0: Calculus of kidney) CT from [facility] 10/24/21 shows two 5mm R renal stones with slight prominence of the collecting system. R ESWL 01/07/2022 CT done 05/2022 was negative for stones. f/u 6 mos w KUB Follow-up With When Contact Information TISH KENDALL PA-C, URL In 6 months 04/07/2023 EDT [address] [place] [address] [phone] Additional Instructions: KUB Patient Education Kidney Stones, Cska-qv-Wnug Kayy Nolan personally scribed for Tish Kendall [...] Tab, 50 mg= 1 tab(s), Oral, BID Vastrm, Oral, Daily potassium acetate Potassium Chloride (Eqv-K-Tab) 20 mEq oral tablet, extended release Prozac 40 mg Cap, 40 mg= 1 cap(s), Oral, Daily Vitamin B Complex oral capsule, Oral, Daily Zofra (more content not included)... Normal [facility] Comment on above: Result Comment: Elec tronically Signed By: TISH KENDALL PA-C\.br\Date and Time Signed: 10/06/22 16:34 EDT\.br\Electronically Co-Signed By: Kayy Rocha MA\.br\Date and Time Co-Signed: 10/06/22 15:24 EDT Echocardiogramon 10-01-2022 Echocardiography [facility] [address] [place] [address], Suite [facility] [place] [address] TRANSTHORACIC ECHOCARDIOGRAM REPORT Patient Name: RAQUEL De León Physician: [id number] Néstor Charlton MD Study Date: 10/01/2022 Referring Physician: PERLITA LAWRENCE MRN/PID: [id number] PCP: Chandrika Lee Accession/Order#: [id number] Department Location: [facility] Date of : 1985 Fellow: Gender: F Nurse: Admit Date: Supply And Distribution Manager: Raquel Briggs RDCS, RVT Height: 160.02 cm CC Report to: Weight: 58.51 kg Study Type: Echocardiogram BSA: 1.61 m2 Blood Pressure: 108 /56 mmHg Diagnosis/ICD: R00.2-Palpitations; E99-Rsbcdpc; I47.1-Supraventricular tachycardia Indication: Hypokalemia, Chron's Disease Procedure/CPT: Echo Complete w Full Doppler-[id number] Study Detail: The following Echo studies were [...] 0.8 m/s (0.6-0.9m/s) PV Max P.4 mmHg [id number] Néstor Charlton MD Electronically signed on 10/04/2022 at 3:21:42 PM Final Normal [facility] Lab Reportson 10-01-2022 Lab Reports [id number]:127 Normal [facility] Patient Educationon 09-07-19 Patient Education Urology Dietary [...] Rhubarb. ? Beets. ? Potato chips and equatorial guinean fries. ? Nuts. ? If you regularly take a diuretic medicine, make sure to eat at least 1?2 fruits or vegetables high in potassium each day. These include: ? Avocado. ? Banana. ? Linn, prune, carrot, or tomato juice. ? Baked [...] Salad dr (more content not included)... Normal [facility] Office Visit (Cardiology)on 09-03-2022 Follow-up visit Diagnoses/Problems [...] Recorded: 03Sep2022 01:10PM Heart Rate82, R Radial Iepoyeqz412, LUE, Sitting Tavkvxjfl17, LUE, Sitting Height5 ft 3 in Gelzfi449 lb BMI Qfghknguho70.85 kg (more content not included)... Normal [employer] Tobacco Screening.on 023 Tobacco use status CPHS b) No [facility]-Sandu mary 250 DO Work Phone: HCG ( test) IA.rapi d Ql (U)Ordered By: Devyn Falcon on 08-17-2022 HCG ( test) Ql (U) Negative [facility] HCG,Urineon 08-17-2022 Beta HCG ( test) Ql (U) Negative Normal [facility] Comment on above: Result Comment: PERF ORMED BY: [place] [id number] PATHOLOGIST CIRCUIT BOARD DRAFTER RADHA GARCIA M.D. Performed By: #### L IPASE, PT, CBC, PTT, CMP #### [facility] [address] [place] [address] 08-17-2022 L ------ Specimen: [id number] Received: 08/17/22 Status: ARSALAN Brito Num: [id number] Spec Type: Surgical Subm Dr: Carter Lewis DO Tissues: A Hemorrhoids (HEMORRHOIDS) Procedures: TANVIR, Gross/Familia L3 Age/ Patient Sex Location Account Attending Physician CorreaRaquel M 37/F [place] [id number] Carter Lewis,DO SPEC NUM: [id number] RECD: 08/17/22 STATUS: ARSALAN BRITO NUM: [id number] BILLY: 08/17/[address] [facility] [address]: Carter Lewis DO ENTERED: 08/17/22 CASSIDY [...] is rubbery, baca-pink with focal thrombosed vessels. School Director sections are submitted in one cassette labeled A1. Microscopic Description One glass slide with H E stained material has been examined. The microscopic findings support the above pathologic diagnosis. Specimen: [id number] Received: 08/17/22 Status: ARSALAN Lindseybrant Num: [id number] Spec Type: Surgical Subm Dr: Carter Lewis DO Tissues: A Hemorrhoids (HEMORRHOIDS) Procedures: Lopez RAMEY/Familia L3 Patient: Raquel Correa [id number] (Continued) Specimen: [id number] Received: 08/17/22 (Continued) Signed (signature on file) Diana Santana MD 08/18/222003 Specimen: Received: 08/17/22 Status: ARSALAN Brito Num: [id number] Spec Type: Surgical Subm Dr: Carter Lewis DO Tissues: A Hemorrhoids (HEMORRHOIDS) Procedures: Lopez RAMEY/Familia L3 Patient: Raquel Correa [id number] (Continued) Specimen: [id number] Received: 08/17/22 (Continued) CPT Codes 90897 Specimen: [id number] Received: 08/17/22 Status: ARSALAN Brito Num: [id number] Spec Type: Surgical Subm Dr: Carter Lewis DO Tissues: A Hemorrhoids (HEMORRHOIDS) Procedures: Lopez RAMEY/Familia L3 Patient: Lynnette Correaa Amalia [id number] (Continued) Signed (signature on file) Diana Santana MD 08/18/222003 [facility] CULTURE URINEon 08-13-2022 CULTURE URINE Isolate 1 [...] Trimethoprim/Sulfamethoxaz ole <=20 S F Normal The [facility] Comment on above: Performed By: #### U AMIC #### [facility] [address] [place] [address] Dr. Tori Thomas UA RANDOM W/MICROSCOPICon BACTERIA LARGE Abnormal NONE SEEN The [facility] Comment on above: Performed By: #### U AMIC #### [facility] [address] [address] [address] Tori Thomas Bilirubin Ql (U) Negative Normal NEGATIVE [facility] Comment on above: Performed By: #### U AMIC #### [facility] [address] [address] [address] Tori Thomas CA OX CRYSTALS FEW Normal [facility] Comment on above: Performed By: #### U AMIC #### [facility] [address] [address] [address] Tori Thomas CAST NONE SEEN Normal NONE SEEN The [facility] Comment on above: Performed By: #### U AMIC #### [facility] [address] [address] [address] Tori Thomas Clarity (U) CLEAR Normal CLEAR [facility] Comment on above: Performed By: #### U AMIC #### [facility] [address] [address] [address] Tori Thomas Color (U) DK. ORANGE Abnormal YELLOW [facility] Comment on above: Performed By: #### U AMIC #### [facility] [address] [address] [address] Tori Thomas Crystals LM Nom (Urine sed) SEEN Abnormal NONE SEEN [facility] Comment on above: Performed By: #### U AMIC #### [facility] [address] [place] [address] Dr. Tori Thomas Epithelial cells LM Ql (Urine sed) MODERATE Abnormal NONE SEEN /RARE [facility] Comment on above: Performed By: #### U AMIC #### [facility] [address] [address] [address] Tori Thomas Glucose Ql (U) Negative Normal NEGATIVE [facility] Comment on above: Performed By: #### U AMIC #### [facility] [address] [address] [address] Tori Thomas Hemoglobin Ql (U) TRACE-INTACT Abnormal NEGATIVE [facility] Comment on above: Performed By: #### U AMIC #### [facility] [address] [address] [address] Tori Thomas Ketones Ql (U) TRACE Abnormal NEGATIVE [facility] Comment on above: Performed By: #### U AMIC #### [facility] [address] [place] [address] Dr. Tori Thomas LEUKOCYTES MODERATE Abnormal NEGATIVE [facility] Comment on above: Performed By: #### U AMIC #### [facility] [address] [place] [address] Dr. Tori Thomas MUCOUS NONE SEEN Normal NONE SEEN [facility] Comment on above: Performed By: #### U AMIC #### [facility] [address] [place] [address] Dr. Tori Thomas Nitrite Ql (U) Positive Abnormal NEGATIVE [facility] Comment on above: Performed By: #### U AMIC #### [facility] [address] [place] [address] Dr. Tori Thomas pH (U) 5.5 [pH] Normal 5-9 [facility] Comment on above: Performed By: #### U AMIC #### [facility] [address] [place] [address] Dr. Tori Thomas RBC 5-10 Abnormal 0-2 [facility] Comment on above: Performed By: #### U AMIC #### [facility] [address] [place] [address] Dr. Tori Thomas SPEC GRAVITY 1.025 Normal 1.005-<=1. 025 [facility] Comment on above: Performed By: #### U AMIC #### [facility] [address] [place] [address] Dr. Tori Thomas UA PROTEIN 30 mg/dl Abnormal NEGATIVE/ TRACE [facility] Comment on above: Performed By: #### U AMIC #### [facility] [address] [place] [address] Dr. Tori Thomas Urobilinogen Qn (U) 1.0 {Diana'U}/dL Normal 0.2 - 1. 0 [facility] Comment on above: Performed By: #### U AMIC #### [facility] [address] [place] [address] Dr. Tori Thomas WBC 50-75 Abnormal NONE SEEN [facility] Comment on above: Performed By: #### U AMI #### [facility] [facility] [address] [address] [address] Tori Thomas HCG ( test) IArafiq rojas Ql (U)Ordered By: Nam Christensen on 08-02-2022 HCG ( test) Ql (U) Negative [facility] HCG,Urineon 08-02-2022 Beta HCG ( test) Ql (U) Negative Normal [facility] Comment on above: Result Comment: PERF ORMED BY: [facility] [address] [place] [address] PATHOLOGIST CIRCUIT BOARD DRAFTER RADHA GARCIA M.D. Performed By: #### C BC, MG, CMP, ESR, LIPASE, TSH3 #### [facility] [address] 08-02-2022 L ------ Specimen: [id number] Received: 08/02/22 Status: ARSALAN Brito Num: [id number] Spec Type: Surgical Subm Dr: Carter Lewis DO Tissues: A Hemorrhoids (HEMORRHOIDS) Procedures: TANVIR, Gross/Familia L3 Age/ Patient Sex Location Account Attending Physician Raquel Correa 37/F [place] [id number] Carter Lewis DO SPEC NUM: [id number] RECD: 08/02/22 STATUS: ARSALAN BRITO NUM: [id number] BILLY: 08/02/22-[address] [facility] [address]: Carter Lewis DO ENTERED: 08/02/[address]: TONIA TYPE: Surgical DEPT: S ENTERED BY: [id number] RECV BY: [id number] ORDERED: HE, Gross/Micro L3 ORDERED: HE, Gross/Micro [...] mucosa. The cut surface is rubbery, baca-red.. School Director sections are submitted in one cassette labeled A1. Microscopic Description One glass slide with H E stained material has been examined. The microscopic findings support the above pathologic diagnosis. CPT Codes 93516 Specimen: [id number] Received: 08/02/22 Status: ARSALAN Brito Num: [id number] Spec Type: Surgical Subm Dr: Carter Lewis DO Tissues: A Hemorrhoids (HEMORRHOIDS) Procedures: Lopez RAMEY/Familia L3 Patient: Raquel Correa [id number] (Continued) Signed (signature on file) Alla Carlisle MD 08/03/22 1221 [facility] Office Visit (Cardiology)on 07-26-2022 Follow-up visit Diagnoses/Problems [...] further questions arise, Sincerely, Perlita Lawrence MD [facility] Surgical History Problems History of section [...] Vital Signs Recorded: 26Jul2022 11:06AMRecorded: 26Jul2022 11:05AM Tagtpulx887, LUE, Njcaeag920, RUE, Sitting Syxkvwbsj10, LUE, Agjeiij28, RUE, Sitting Heart Rate50, Apical Height5 ft 3 in [place]600 lb 12 oz BMI Zzltdslfmy66.93 kg/m2 BSA Calculated1.67 Tobacco Useb) No PHQ-2 [...] appreciated. There (more content not included)... Normal [facility] Office Visit Presurgicalon 0 07-26-2022 [...] further questions arise, Sincerely, Perlita Lawrence MD [facility] Surgical History Problems History of section [...] appreciated. Th (more content not included)... Normal [employer] Tobacco Screening.on 023 Adult depression screening assessment No [facility] [employer] DO Work Phone: Fall risk assessment a) No falls within the last year [facility] [employer] DO Work Phone: Tobacco use status CPHS b) No [facility] [employer] DO Work Phone: Basic Metabolic Panelon 06-28 Anion gap [Moles/Vol] 12.9 mmol/L Normal 6.0-15.[address] [facility] Comment on above: Performed By: #### C BC, MG, CMP, ESR, LIPASE, TSH3 #### [facility] [address] [place] [address] Calcium [Mass/Vol] 9.3 mg/dL Normal 8.2-10.2 [facility] Comment on above: Result Comment: PERF ORMED BY: [place] [id number] PATHOLOGIST CIRCUIT BOARD DRAFTER RADHA GARCIA M.D. Performed By: #### C BC, MG, CMP, ESR, LIPASE, TSH3 #### [facility] [address] [place] [address] Chloride [Moles/Vol] 104 mmol/L Normal 95-114 [facility] Comment on above: Performed By: #### C BC, MG, CMP, ESR, LIPASE, TSH3 #### [facility] [address] CO2 [Moles/Vol] 23.4 mmol/L Normal 22.0-30.0 [facility] Comment on above: Performed By: #### C BC, MG, CMP, ESR, LIPASE, TSH3 #### [address] Creatinine [Mass/Vol] 0.98 mg/dL Normal 0.44-1.03 [facility] Comment on above: Performed By: #### C BC, MG, CMP, ESR, LIPASE, TSH3 #### [address] Estimated GFR ( Letty > 60 [facility] Comment on above: Result Comment: GFR estimated reference range: According to KDOQI guidelines, <60 ml/min/1.73m2 is sufficient to diagnose a patient with chronic kidney disease. Performed By: #### C BC, MG, CMP, ESR, LIPASE, TSH3 #### [address] Estimated GFR (Non- Am > 60 [facility] Comment on above: Performed By: #### C BC, MG, CMP, ESR, LIPASE, TSH3 #### [address] Glucose [Mass/Vol] 81 mg/dL Normal 70-100 [facility] Comment on above: Result Comment: [place] Glucose Reference Range is dependent on time and content of last meal. Glucose of more than 200 mg/dL in a nonstressed, ambulatory subject supports the diagnosis of Diabetes Mellitus. ADA recommended reference range Performed By: #### C BC, MG, CMP, ESR, LIPASE, TSH3 #### [address] Potassium [Moles/Vol] 4.3 mmol/L Normal 3.5-5.1 [facility] Comment on above: Performed By: #### C BC, MG, CMP, ESR, LIPASE, TSH3 #### [facility] [address] Sodium [Moles/Vol] 136 mmol/L Normal 136-146 [facility] Comment on above: Performed By: #### C BC, MG, CMP, ESR, LIPASE, TSH3 #### [facility] [address] Urea nitrogen [Mass/Vol] 6 mg/dL Low 03-19 [facility] Comment on above: Performed By: #### C BC, MG, CMP, ESR, LIPASE, TSH3 #### [address] Basophils Auto (Bld) [#/Vol] Ordered By: Carter Lewis on 07-19-2022 Basophils (Bld) [#/Vol] 0.0 10*3/uL 0.0-0.2 [facility] Basophils/100 WBC Auto (Bld) Ordered By: Carter Lewis on 07-19-2022 Basophils/100 WBC (Bld) 0.6 % . [facility] Complete Blood Count Auto Di ffon 07-19-2022 Basophils (Bld) [#/Vol] 0.0 10*3/uL Normal 0.0-0.2 [facility] Comment on above: Result Comment: PERF ORMED BY: [place] [id number] PATHOLOGIST CIRCUIT BOARD DRAFTER RADHA GARCIA M.D. Performed By: #### C BC, MG, CMP, ESR, LIPASE, TSH3 #### [address] Basophils/100 WBC (Bld) 0.6 % Normal . [facility] Comment on above: Performed By: #### C BC, MG, CMP, ESR, LIPASE, TSH3 #### [address] Eosinophils (Bld) [#/Vol] 0.1 10*3/uL Normal 0.0-0.45 [facility] Comment on above: Performed By: #### C BC, MG, CMP, ESR, LIPASE, TSH3 #### [address] Eosinophils/100 WBC (Bld) 1.0 % Normal . [facility] Comment on above: Performed By: #### C BC, MG, CMP, ESR, LIPASE, TSH3 #### [address] Erythrocyte distribution width (RBC) [Ratio] 19.7 % High 11.9-15.3 [facility] Comment on above: Performed By: #### C BC, MG, CMP, ESR, LIPASE, TSH3 #### [address] Hematocrit (Bld) [Volume fraction] 38.3 % Normal 34.0-46.4 [facility] Comment on above: Performed By: #### C BC, MG, CMP, ESR, LIPASE, TSH3 #### [address] Hemoglobin (Bld) [Mass/Vol] 12.4 g/dL Normal 11.8-15.4 [facility] Comment on above: Performed By: #### C BC, MG, CMP, ESR, LIPASE, TSH3 #### [address] Lymphocytes (Bld) [#/Vol] 1.9 10*3/uL Normal 1.00-4.8 [facility] Comment on above: Performed By: #### C BC, MG, CMP, ESR, LIPASE, TSH3 #### [address] Lymphocytes/100 WBC (Bld) 27.1 % Normal . [facility] Comment on above: Performed By: #### C BC, MG, CMP, ESR, LIPASE, TSH3 #### [address] MCH (RBC) [Entitic mass] 26.2 pg Normal 24.7-34.3 [facility] Comment on above: Performed By: #### C BC, MG, CMP, ESR, LIPASE, TSH3 #### [address] MCV (RBC) [Entitic vol] 80.9 fL Normal 80-100 [facility] Comment on above: Performed By: #### C BC, MG, CMP, ESR, LIPASE, TSH3 #### [address] Mean Corpuscular HGB Conc 32.4 g/dL Normal 32.0-35.0 [facility] Comment on above: Performed By: #### C BC, MG, CMP, ESR, LIPASE, TSH3 #### [address] Monocytes (Bld) [#/Vol] 0.6 10*3/uL Normal 0.0-0.8 [facility] Comment on above: Performed By: #### C BC, MG, CMP, ESR, LIPASE, TSH3 #### [address] Monocytes/100 WBC (Bld) 7.9 % Normal . [facility] Comment on above: Performed By: #### C BC, MG, CMP, ESR, LIPASE, TSH3 #### [address] Neutrophils (Bld) [#/Vol] 4.6 10*3/uL Normal 1.8-7.7 [facility] Comment on above: Performed By: #### C BC, MG, CMP, ESR, LIPASE, TSH3 #### [address] Neutrophils/100 WBC (Bld) 63.4 % Normal . [facility] Comment on above: Performed By: #### C BC, MG, CMP, ESR, LIPASE, TSH3 #### [address] NRBC% 0.1 /100{WBC} Normal 0-0.5 [facility] Comment on above: Performed By: #### C BC, MG, CMP, ESR, LIPASE, TSH3 #### [facility] [address] Platelet mean volume (Bld) [Entitic vol] 8.1 fL Normal 6.3-10.7 [facility] Comment on above: Performed By: #### C BC, MG, CMP, ESR, LIPASE, TSH3 #### [facility] [address] Platelets (Bld) [#/Vol] 405 10*3/uL Normal 150-450 [facility] Comment on above: Performed By: #### C BC, MG, CMP, ESR, LIPASE, TSH3 #### [facility] [address] RBC (Bld) [#/Vol] 4.73 10*6/uL Normal 3.60-5.00 [facility] Comment on above: Performed By: #### C BC, MG, CMP, ESR, LIPASE, TSH3 #### [facility] [address] WBC (Bld) [#/Vol] 7.2 10*3/uL Normal 3.8-11.6 [facility] Comment on above: Performed By: #### C BC, MG, CMP, ESR, LIPASE, TSH3 #### [facility] [address] Creatinine and Glomerular fi ltration rate.predicted panel (S/P/Bld)Ordered By: Carter Lewis on 07-19-2022 Creatinine [Mass/Vol] 0.98 mg/dL 0.44-1.03 [facility] Eosinophils Auto (Bld) [#/Vo l]Ordered By: Carter Lewis on 07-19-2022 Eosinophils (Bld) [#/Vol] 0.1 10*3/uL 0.0-0.45 [facility] Eosinophils/100 WBC Auto (Bl d)Ordered By: Carter Lewis on 07-19-2022 Eosinophils/100 WBC (Bld) 1.0 % . [facility] Erythrocyte distribution wid th Auto (RBC) [Ratio]Ordered By: Carter Lewis on 07-19-2022 Erythrocyte distribution width (RBC) [Ratio] 19.7 % 11.9-15.3 [facility] Estimated glomerular filtrat ion rate (GFR) non- AmericanOrdered By: Carter Lewis on 07-19-2022 GFR/1.73 sq M.predicted among non-blacks MDRD (S/P/Bld) [Vol rate/Area] > 60 mL/Min [facility] Hematocrit Auto (Bld) [Volum e fraction]Ordered By: Carter Lewis on 07-19-2022 Hematocrit (Bld) [Volume fraction] 38.3 % 34.0-46.4 [facility] Hemoglobin [Mass/volume] in BloodOrdered By: Carter Lewis on 07-19-2022 Hemoglobin (Bld) [Mass/Vol] 12.4 g/dL 11.8-15.4 [facility] Leukocytes [#/volume] correc rosales for nucleated erythrocytes in Blood by Automated counOrdered By: Carter Lewis on 07-19-2022 WBC corrected for nucl RBC Auto (Bld) [#/Vol] 7.2 10*3/uL 3.8-11.6 [facility] Lymphocytes Auto (Bld) [#/Vo l]Ordered By: Carter Lewis on 07-19-2022 Lymphocytes (Bld) [#/Vol] 1.9 10*3/uL 1.00-4.8 [facility] Lymphocytes/100 WBC Auto (Bl d)Ordered By: Carter Lewis on 07-19-2022 Lymphocytes/100 WBC (Bld) 27.1 % . [facility] MCH Auto (RBC) [Entitic mass ]Ordered By: Carter Lewis on 07-19-2022 MCH (RBC) [Entitic mass] 26.2 pg 24.7-34.3 [facility] MCHC Auto (RBC) [Mass/Vol]Or dered By: Carter Lewis on 07-19-2022 MCHC (RBC) [Mass/Vol] 32.4 g/dL 32.0-35.0 [facility] MCV Auto (RBC) [Entitic vol] Ordered By: Carter Lewis on 07-19-2022 MCV (RBC) [Entitic vol] 80.9 fL 80-100 [facility] Monocytes Auto (Bld) [#/Vol] Ordered By: Carter Lewis on 07-19-2022 Monocytes (Bld) [#/Vol] 0.6 10*3/uL 0.0-0.8 [facility] Monocytes/100 WBC Auto (Bld) Ordered By: Carter Lewis on 07-19-2022 Monocytes/100 WBC (Bld) 7.9 % . [facility] Neutrophils Auto (Bld) [#/Vo l]Ordered By: Carter Lewis on 07-19-2022 Neutrophils (Bld) [#/Vol] 4.6 10*3/uL 1.8-7.7 [facility] Neutrophils/100 WBC Auto (Bl d)Ordered By: Carter Lewis on 07-19-2022 Neutrophils/100 WBC (Bld) 63.4 % . [facility] No Panel InformationOrdered By: Carter Lewis on 07-19-2022 Estimated GFR () > 60 mL/Min [facility] Comment on above: GFR estimated refere nce range: According to KDOQI guidelines, <60 ml/min/1.73m2 is sufficient to diagnose a patient with chronic kidney disease. Pharmacy Creatinine Clearance (Chem N/A [facility] Nucleated erythrocytes [Pres ence] in Blood by Automated countOrdered By: Carter Lewis on 07-19-2022 Nucleated RBC Auto Ql (Bld) 0.1 /100{WBC} 0-0.5 [facility] Platelet mean volume Auto (B ld) [Entitic vol]Ordered By: Carter Lewis on 07-19-2022 Platelet mean volume (Bld) [Entitic vol] 8.1 fL 6.3-10.7 [facility] Platelets Auto (Bld) [#/Vol] Ordered By: Carter Lewis on 07-19-2022 Platelets (Bld) [#/Vol] 405 10*3/uL 150-450 [facility] RBC Auto (Bld) [#/Vol]Ordere d By: Carter Lewis on 07-19-2022 RBC (Bld) [#/Vol] 4.73 10*6/uL 3.60-5.00 [facility] Serum or plasma anion gap de terminationOrdered By: Carter Lewis on 07-19-2022 Anion gap [Moles/Vol] 12.9 mmol/L 6.0-15.[address] [facility] Serum or plasma calcium mariana urement (mass/volume)Ordered By: Carter Lewis on 07-19-2022 Calcium [Mass/Vol] 9.3 mg/dL 8.2-10.2 [facility] Serum or plasma chloride jaqui surement (moles/volume)Ordered By: Carter Lewis on 07-19-2022 Chloride [Moles/Vol] 104 mmol/L 95-114 [facility] Serum or plasma glucose mariana urement (mass/volume)Ordered By: Carter Lewis on 07-19-2022 Glucose [Mass/Vol] 81 mg/dL 70-100 [facility] Comment on above: ADA recommended refe rence rangeRandom Glucose Reference Range is dependent on time and content of last meal. Glucose of more than 200 mg/dL in a nonstressed, ambulatory subject supports the diagnosis of Diabetes Mellitus. Serum or plasma potassium me asurement (moles/volume)Ordered By: Carter Lewis on 07-19-2022 Potassium [Moles/Vol] 4.3 mmol/L 3.5-5.1 [facility] Serum or plasma sodium measu rement (moles/volume)Ordered By: Carter Lewis on 07-19-2022 Sodium [Moles/Vol] 136 mmol/L 136-146 [facility] Serum or plasma total carbon dioxide measurement (moles/volume)Ordered By: Carter Lewis on 07-19-2022 CO2 [Moles/Vol] 23.4 mmol/L 22.0-30.0 [facility] Serum or plasma urea nitroge n measurement (mass/volume)Ordered By: Carter Lewis on 07-19-2022 Urea nitrogen [Mass/Vol] 6 mg/dL 03-19 [facility] WBC Auto (Bld) [#/Vol]Ordere d By: Carter Lewis on 07-19-2022 WBC (Bld) [#/Vol] 7.2 10*3/uL 3.8-11.6 [facility] Arterial blood standard base excess determination by calculationOrdered By: Be Azul on 06-14-2022 Base excess standard Calc (BldA) [Moles/Vol] 0 mmol/L -2-3 [facility] Blood carbon dioxide, total measurement by calculation (moles/volume)Ordered By: Be Azul on 06-14-2022 CO2 Calc (Bld) [Moles/Vol] 26 mmol/L [facility] CT biopsyOrdered By: Cora Azul on 06-14-2022 Hematocrit (Bld) [Volume fraction] 39.0 % 38.0-51.0 [facility] Glucose Glucometer (BldC) [M ass/Vol]Ordered By: Be Azul on 06-14-2022 Glucose [Mass/Vol] 112 mg/dL 70-105 [facility] HCG ( test) IA.rapi d Ql (U)Ordered By: Be Azul on 06-14-2022 HCG ( test) Ql (U) Negative [facility] HCG,Urineon 06-14-2022 Beta HCG ( test) Ql (U) Negative Normal [facility] Comment on above: Result Comment: PERF ORMED BY: [place] [id number] PATHOLOGIST CIRCUIT BOARD DRAFTER RADHA GARCIA M.D. Performed By: #### C BC, MG, CMP, ESR, LIPASE, TSH3 #### [facility] [address] Hemoglobin Calc (Bld) [Mass/ Vol]Ordered By: Be Azul on 06-14-2022 Hemoglobin (Bld) [Mass/Vol] 13.3 g/dL 12.0-17.0 [facility] ISTAT ABGon 06-14-2022 CO2 [Moles/Vol] 26 mmol/L Normal [facility] Comment on above: Performed By: #### C BC, MG, CMP, ESR, LIPASE, TSH3 #### [facility] [address] Glucose [Mass/Vol] 112 mg/dL High 70-105 [facility] Comment on above: Result Comment: PERF ORMED BY: [place] [id number] PATHOLOGIST CIRCUIT BOARD DRAFTER RADHA GARCIA M.D. Performed By: #### C BC, MG, CMP, ESR, LIPASE, TSH3 #### [address] HCO3 (Bld) [Moles/Vol] 24.5 mmol/L Normal 22.0-28.0 [facility] Comment on above: Performed By: #### C BC, MG, CMP, ESR, LIPASE, TSH3 #### [address] Hematocrit (Bld) [Volume fraction] 39.0 % Normal 38.0-51.0 [facility] Comment on above: Performed By: #### C BC, MG, CMP, ESR, LIPASE, TSH3 #### [address] Hemoglobin (Bld) [Mass/Vol] 13.3 g/dL Normal 12.0-17.0 [facility] Comment on above: Performed By: #### C BC, MG, CMP, ESR, LIPASE, TSH3 #### [address] ISTAT Base Excess 0 mmol/L Normal -2 TO 3 [facility] Comment on above: Performed By: #### C BC, MG, CMP, ESR, LIPASE, TSH3 #### [address] ISTAT Ionized Calcium 1.21 mol/L Normal 1.12-1.32 [facility] Comment on above: Performed By: #### C BC, MG, CMP, ESR, LIPASE, TSH3 #### [address] ISTAT PCO2 36.9 mm[Hg] Normal 35-51 [facility] Comment on above: Performed By: #### C BC, MG, CMP, ESR, LIPASE, TSH3 #### [address] ISTAT Ph 7.430 Normal 7.31-7.45 [facility] Comment on above: Performed By: #### C BC, MG, CMP, ESR, LIPASE, TSH3 #### [address] ISTAT PO2 77 mm[Hg] Low 80-105 [facility] Comment on above: Performed By: #### C BC, MG, CMP, ESR, LIPASE, TSH3 #### [address] Oxygen saturation in Blood 96 % Normal 95-98 [facility] Comment on above: Result Comment: Refe rence ranges reflect baseline specimens only Performed By: #### C BC, MG, CMP, ESR, LIPASE, TSH3 #### [address] Potassium [Moles/Vol] 4.1 mmol/L Normal 3.5-4.9 [facility] Comment on above: Performed By: #### C BC, MG, CMP, ESR, LIPASE, TSH3 #### [address] Sodium [Moles/Vol] 137 mmol/L Low 138-146 [facility] Comment on above: Performed By: #### C BC, MG, CMP, ESR, LIPASE, TSH3 #### [address] 06-14-2022 L ------ Specimen: [id number] Received: 06/15/22 Status: ARSALAN Brito Num: [id number] Spec Type: Surgical Subm Dr: Be Azul MD Tissues: A Colon Biopsy (RANDOM COLON BX) Procedures: HE/2, Gross/Micro L4 Age/ Patient Sex Location Account Attending Physician Raquel Correa 37/F [id number] Be Azul MD SPEC NUM: [id number] RECD: 06/15/22 STATUS: ARSALAN BRITO NUM: [id number] BILLY: 06/14/[address] [facility] [address]: Be Azul MD ENTERED: 06/15/[address] [facility] [address]: SPEC TYPE: Surgical DEPT: S ORDERED: [...] support the above pathologic diagnosis. CPT Codes 46072 Specimen: [id number] Received: 06/15/22 Status: ARSALAN Derek Num: [id number] Spec Type: Surgical Subm Dr: Be Azul MD Tissues: A Colon Biopsy (RANDOM COLON BX) Procedures: HE/Buzz, Gross/Micro L4 Patient: Raquel Correa [id number] (Continued) Signed (signature on file) Néstor Alvarado MD 06/16/22 0944 Normal [facility] Monocyte %Ordered By: Sandy Azul on 06-14-2022 Monocyte % 36.9 mm[Hg] 35-51 [facility] Monocyte % 77 mm[Hg] 80-105 [facility] Potassium (Bld) [Moles/Vol]O rdered By: Be Azul on 06-14-2022 Potassium [Moles/Vol] 4.1 mmol/L 3.5-4.9 [facility] Sodium (Bld) [Moles/Vol]Orde red By: Be Azul on 06-14-2022 Sodium [Moles/Vol] 137 mmol/L 138-146 [facility] Whole blood bicarbonate mariana urementOrdered By: Be Azul on 06-14-2022 HCO3 (Bld) [Moles/Vol] 24.5 mmol/L 22.0-28.0 [facility] Whole blood ionized calcium measurement (moles/volume)Ordered By: Be Azul on 06-14-2022 Calcium.ionized (Bld) [Moles/Vol] 1210 mmol/L 1.12-1.32 [facility] Whole blood oxygen saturatio n measurementOrdered By: Be Azul on 06-14-2022 Oxygen saturation in Blood 96 % 95-98 [facility] Comment on above: Reference ranges ref lect baseline specimens only Whole blood pHOrdered By: Lay Azul on 06-14-2022 pH (Bld) 7.430 Units 7.31-7.45 [facility] CBC AUTO DIFFon 06-09-2022 BASO # 0.1 103/ul Normal 0.0-0.1 [facility] Comment on above: Performed By: #### C BC #### [facility] [address] [place], [place] [address] Dr. Tori Thomas Basophils/100 WBC (Bld) 0.5 % Normal 0.2-2.0 [facility] Comment on above: Performed By: #### C BC #### [facility] [address] [place] [address] Dr. Tori Thomas EO # 0.1 103/ul Normal 0.0-0.7 [facility] Comment on above: Performed By: #### C BC #### [facility] [address] [place] [address] Dr. Tori Thomas Eosinophils/100 WBC (Bld) 0.9 % Normal 0.9-7.0 [facility] Comment on above: Performed By: #### C BC #### [facility] [address] [place] [address] Dr. Tori Thomas Erythrocyte distribution width (RBC) [Ratio] 16.8 % Critically high 11.0-15.0 [facility] Comment on above: Performed By: #### C BC #### [facility] [address] [place] [address] Dr. Tori Thomas Hematocrit (Bld) [Volume fraction] 34.0 % Critically low 36.0-48.0 [facility] Comment on above: Performed By: #### C BC #### [facility] [address] [place] [address] Dr. Tori Thomas Hemoglobin (Bld) [Mass/Vol] 10.5 g/dL Critically low 12.0-16.0 [facility] Comment on above: Performed By: #### C BC #### [facility] [address] [place] [address] Dr. Tori Thomas IG # 0.10 10e3/ul Critically high 0.00-0.03 [facility] Comment on above: Performed By: #### C BC #### [facility] [address] [place] [address] Dr. Tori Thomas IG % 0.9 % Critically high 0.0-0.5 [facility] Comment on above: Performed By: #### C BC #### [facility] [address] [place] [address] Dr. Tori Thomas LYMPH # 4.4 103/ul Critically high 1.2-3.8 [facility] Comment on above: Performed By: #### C BC #### [facility] [address] [place] [address] Dr. Tori Thomas Lymphocytes/100 WBC (Bld) 39.9 % Normal 20.5-60.0 [facility] Comment on above: Performed By: #### C BC #### [facility] [address] [place] [address] Dr. Tori Thomas MANUAL DIFF REQ NO Normal [facility] Comment on above: Performed By: #### C BC #### [facility] [address] [place] [address] Dr. Tori Thomas MCH (RBC) [Entitic mass] 25.6 pg Critically low 26.7-34.0 [facility] Comment on above: Performed By: #### C BC #### [facility] [address] [place] [address] Dr. Tori Thomas MCHC (RBC) [Mass/Vol] 30.9 g/dL Normal 29.9-35.2 [facility] Comment on above: Performed By: #### C BC #### [facility] [address] [place] [address] Dr. Tori Thomas MCV (RBC) [Entitic vol] 82.9 fL Normal 81.0-99.0 [facility] Comment on above: Performed By: #### C BC #### [facility] [address] [place] [address] Dr. Tori Thomas MONO # 0.6 103/ul Normal 0.3-0.8 [facility] Comment on above: Performed By: #### C BC #### [facility] [address] [place] [address] Dr. Tori Thomas Monocytes/100 WBC (Bld) 5.6 % Normal 1.7-12.0 [facility] Comment on above: Performed By: #### C BC #### [facility] [address] [place] [address] Dr. Tori Thomas NEUT # 5.7 103/ul Normal 1.4-6.5 [facility] Comment on above: Performed By: #### C BC #### [facility] [address] [place] [address] Dr. Tori Thomas Neutrophils/100 WBC (Bld) 52.2 % Normal 43.0-75.0 [facility] Comment on above: Performed By: #### C BC #### [facility] [address] [place] [address] Dr. Tori Thomas Platelet mean volume (Bld) [Entitic vol] 9.0 fL Critically low 9.5-13.5 [facility] Comment on above: Performed By: #### C BC #### [facility] [address] [place] [address] Dr. Tori Thomas PLT 479 103/ul Critically high 150-450 [facility] Comment on above: Performed By: #### C BC #### [facility] [address] [place] [address] Dr. Tori Thomas RBC 4.10 106/ul Critically low 4.20-5.40 [facility] Comment on above: Performed By: #### C BC #### [facility] [address] [place] [address] Dr. Tori Thomas WBC 11.0 103/ul Normal 4.0-11.0 [facility] Comment on above: Performed By: #### C BC #### [facility] [address] [place] [address] Dr. Tori Thomas IRONon 06-09-2022 Iron [Mass/Vol] 131.0 ug/dL Normal 50.0-170.0 [facility] Comment on above: Performed By: #### U AMIC #### [facility] [address] [place] [address] Dr. Tori Thomas Basophils Auto (Bld) [#/Vol] Ordered By: Chandrika Lee on 06-05-2022 Basophils (Bld) [#/Vol] 0.1 10*3/uL 0.0-0.2 [facility] Basophils/100 WBC Auto (Bld) Ordered By: Chandrika Lee on 06-05-2022 Basophils/100 WBC (Bld) 0.6 % . [facility] Complete Blood Count Auto Di ffon 06-05-2022 Basophils (Bld) [#/Vol] 0.1 10*3/uL Normal 0.0-0.2 [facility] Comment on above: Result Comment: PERF ORMED BY: [place] [id number] PATHOLOGIST [employer] RADHA GARCIA M.D. Performed By: #### C BC, MG, CMP, ESR, LIPASE, TSH3 #### [address] Basophils/100 WBC (Bld) 0.6 % Normal . [facility] Comment on above: Performed By: #### C BC, MG, CMP, ESR, LIPASE, TSH3 #### [address] Eosinophils (Bld) [#/Vol] 0.0 10*3/uL Normal 0.0-0.45 [facility] Comment on above: Performed By: #### C BC, MG, CMP, ESR, LIPASE, TSH3 #### [address] Eosinophils/100 WBC (Bld) 0.0 % Normal . [facility] Comment on above: Performed By: #### C BC, MG, CMP, ESR, LIPASE, TSH3 #### [address] Erythrocyte distribution width (RBC) [Ratio] 18.2 % High 11.9-15.3 [facility] Comment on above: Performed By: #### C BC, MG, CMP, ESR, LIPASE, TSH3 #### [address] Hematocrit (Bld) [Volume fraction] 30.1 % Low 34.0-46.4 [facility] Comment on above: Performed By: #### C BC, MG, CMP, ESR, LIPASE, TSH3 #### [address] Hemoglobin (Bld) [Mass/Vol] 9.8 g/dL Low 11.8-15.4 [facility] Comment on above: Performed By: #### C BC, MG, CMP, ESR, LIPASE, TSH3 #### [address] Lymphocytes (Bld) [#/Vol] 1.6 10*3/uL Normal 1.00-4.8 [facility] Comment on above: Performed By: #### C BC, MG, CMP, ESR, LIPASE, TSH3 #### [address] Lymphocytes/100 WBC (Bld) 14.4 % Normal . [facility] Comment on above: Performed By: #### C BC, MG, CMP, ESR, LIPASE, TSH3 #### [address] MCH (RBC) [Entitic mass] 25.8 pg Normal 24.7-34.3 [facility] Comment on above: Performed By: #### C BC, MG, CMP, ESR, LIPASE, TSH3 #### [address] MCV (RBC) [Entitic vol] 79.0 fL Low 80-100 [facility] Comment on above: Performed By: #### C BC, MG, CMP, ESR, LIPASE, TSH3 #### [address] Mean Corpuscular HGB Conc 32.6 g/dL Normal 32.0-35.0 [facility] Comment on above: Performed By: #### C BC, MG, CMP, ESR, LIPASE, TSH3 #### [address] Monocytes (Bld) [#/Vol] 0.6 10*3/uL Normal 0.0-0.8 [facility] Comment on above: Performed By: #### C BC, MG, CMP, ESR, LIPASE, TSH3 #### [address] Monocytes/100 WBC (Bld) 5.4 % Normal . [facility] Comment on above: Performed By: #### C BC, MG, CMP, ESR, LIPASE, TSH3 #### [address] Neutrophils (Bld) [#/Vol] 8.9 10*3/uL High 1.8-7.7 [facility] Comment on above: Performed By: #### C BC, MG, CMP, ESR, LIPASE, TSH3 #### [address] Neutrophils/100 WBC (Bld) 79.6 % Normal . [facility] Comment on above: Performed By: #### C BC, MG, CMP, ESR, LIPASE, TSH3 #### [address] NRBC% 0.0 /100{WBC} Normal 0-0.5 [facility] Comment on above: Performed By: #### C BC, MG, CMP, ESR, LIPASE, TSH3 #### [address] Platelet mean volume (Bld) [Entitic vol] 8.0 fL Normal 6.3-10.7 [facility] Comment on above: Performed By: #### C BC, MG, CMP, ESR, LIPASE, TSH3 #### [address] Platelets (Bld) [#/Vol] 431 10*3/uL Normal 150-450 [facility] Comment on above: Performed By: #### C BC, MG, CMP, ESR, LIPASE, TSH3 #### [address] RBC (Bld) [#/Vol] 3.80 10*6/uL Normal 3.60-5.00 [facility] Comment on above: Performed By: #### C BC, MG, CMP, ESR, LIPASE, TSH3 #### [address] WBC (Bld) [#/Vol] 11.2 10*3/uL Normal 3.8-11.6 [facility] Comment on above: Performed By: #### C BC, MG, CMP, ESR, LIPASE, TSH3 #### [facility] [address] Eosinophils Auto (Bld) [#/Vo l]Ordered By: Chandrika Lee on 06-05-2022 Eosinophils (Bld) [#/Vol] 0.0 10*3/uL 0.0-0.45 [facility] Eosinophils/100 WBC Auto (Bl d)Ordered By: Chandrika Lee on 06-05-2022 Eosinophils/100 WBC (Bld) 0.0 % . [facility] Erythrocyte distribution wid th Auto (RBC) [Ratio]Ordered By: Chandrika Lee on 06-05-2022 Erythrocyte distribution width (RBC) [Ratio] 18.2 % 11.9-15.3 [facility] Hematocrit Auto (Bld) [Volum e fraction]Ordered By: Chandrika Lee on 06-05-2022 Hematocrit (Bld) [Volume fraction] 30.1 % 34.0-46.4 [facility] Hemoglobin [Mass/volume] in BloodOrdered By: Chandrika Lee on 06-05-2022 Hemoglobin (Bld) [Mass/Vol] 9.8 g/dL 11.8-15.4 [facility] Leukocytes [#/volume] correc rosales for nucleated erythrocytes in Blood by Automated counOrdered By: Chandrika Lee on 06-05-2022 WBC corrected for nucl RBC Auto (Bld) [#/Vol] 11.2 10*3/uL 3.8-11.6 [facility] Lymphocytes Auto (Bld) [#/Vo l]Ordered By: Chandrika Lee on 06-05-2022 Lymphocytes (Bld) [#/Vol] 1.6 10*3/uL 1.00-4.8 [facility] Lymphocytes/100 WBC Auto (Bl d)Ordered By: Chandrika Lee on 06-05-2022 Lymphocytes/100 WBC (Bld) 14.4 % . [facility] MCH Auto (RBC) [Entitic mass ]Ordered By: Chandrika Lee on 06-05-2022 MCH (RBC) [Entitic mass] 25.8 pg 24.7-34.3 [facility] MCHC Auto (RBC) [Mass/Vol]Or dered By: Chandrika Lee on 06-05-2022 MCHC (RBC) [Mass/Vol] 32.6 g/dL 32.0-35.0 [facility] MCV Auto (RBC) [Entitic vol] Ordered By: Chandrika Lee on 06-05-2022 MCV (RBC) [Entitic vol] 79.0 fL 80-100 [facility] Monocytes Auto (Bld) [#/Vol] Ordered By: Chandrika Lee on 06-05-2022 Monocytes (Bld) [#/Vol] 0.6 10*3/uL 0.0-0.8 [facility] Monocytes/100 WBC Auto (Bld) Ordered By: Chandrika Lee on 06-05-2022 Monocytes/100 WBC (Bld) 5.4 % . [facility] Neutrophils Auto (Bld) [#/Vo l]Ordered By: Chandrika Lee on 06-05-2022 Neutrophils (Bld) [#/Vol] 8.9 10*3/uL 1.8-7.7 [facility] Neutrophils/100 WBC Auto (Bl d)Ordered By: Chandrika Lee on 06-05-2022 Neutrophils/100 WBC (Bld) 79.6 % . [facility] Nucleated erythrocytes [Pres ence] in Blood by Automated countOrdered By: Chandrika Lee on 06-05-2022 Nucleated RBC Auto Ql (Bld) 0.0 /100{WBC} 0-0.5 [facility] Platelet mean volume Auto (B ld) [Entitic vol]Ordered By: Chandrika Lee on 06-05-2022 Platelet mean volume (Bld) [Entitic vol] 8.0 fL 6.3-10.7 [facility] Platelets Auto (Bld) [#/Vol] Ordered By: Chandrika Lee on 06-05-2022 Platelets (Bld) [#/Vol] 431 10*3/uL 150-450 [facility] RBC Auto (Bld) [#/Vol]Ordere d By: Chandrika Lee on 06-05-2022 RBC (Bld) [#/Vol] 3.80 10*6/uL 3.60-5.00 [facility] WBC Auto (Bld) [#/Vol]Ordere d By: Chandrika Lee on 06-05-2022 WBC (Bld) [#/Vol] 11.2 10*3/uL 3.8-11.6 [facility] CBC AUTO DIFFon 06-04-2022 BASO # 0.0 103/ul Normal 0.0-0.1 [facility] Comment on above: Performed By: #### P T, PTT #### [facility] [address] [address] [address] Tori Thomas Basophils/100 WBC (Bld) 0.6 % Normal 0.2-2.0 [facility] Comment on above: Performed By: #### P T, PTT #### [facility] [address] [place] [address] Dr. Tori Thomas EO # 0.1 103/ul Normal 0.0-0.7 [facility] Comment on above: Performed By: #### P T, PTT #### [facility] [address] [address] [address] Tori Thomas Eosinophils/100 WBC (Bld) 1.0 % Normal 0.9-7.0 [facility] Comment on above: Performed By: #### P T, PTT #### [facility] [address] [place] [address] Dr. Tori Thomas Erythrocyte distribution width (RBC) [Ratio] 16.7 % Critically high 11.0-15.0 [facility] Comment on above: Performed By: #### P T, PTT #### [facility] [address] [place] [address] Dr. Tori Thomas Hematocrit (Bld) [Volume fraction] 23.4 % Critically low 36.0-48.0 [facility] Comment on above: Performed By: #### P T, PTT #### [facility] [address] [place] [address] Dr. Tori Thomas Hemoglobin (Bld) [Mass/Vol] 7.2 g/dL Critically low 12.0-16.0 [facility] Comment on above: Performed By: #### P T, PTT #### [facility] [address] [place] [address] Dr. Tori Thomas IG # 0.06 10e3/ul Critically high 0.00-0.03 [facility] Comment on above: Performed By: #### P T, PTT #### [facility] [address] [place] [address] Dr. Tori Thomas IG % 0.9 % Critically high 0.0-0.5 [facility] Comment on above: Performed By: #### P T, PTT #### [facility] [address] [place] [address] Dr. Tori Thomas LYMPH # 2.0 103/ul Normal 1.2-3.8 [facility] Comment on above: Performed By: #### P T, PTT #### [facility] [address] [place] [address] Dr. Tori Thomas Lymphocytes/100 WBC (Bld) 28.6 % Normal 20.5-60.0 [facility] Comment on above: Performed By: #### P T, PTT #### [facility] [address] [place] [address] Dr. Tori Thomas MANUAL DIFF REQ NO Normal [facility] Comment on above: Performed By: #### P T, PTT #### [facility] [address] [place] [address] Dr. Tori Thomas MCH (RBC) [Entitic mass] 25.2 pg Critically low 26.7-34.0 [facility] Comment on above: Performed By: #### P T, PTT #### [facility] [address] [place] [address] Dr. Tori Thomas MCHC (RBC) [Mass/Vol] 30.8 g/dL Normal 29.9-35.2 [facility] Comment on above: Performed By: #### P T, PTT #### [facility] [address] [place] [address] Dr. Tori Thomas MCV (RBC) [Entitic vol] 81.8 fL Normal 81.0-99.0 [facility] Comment on above: Performed By: #### P T, PTT #### [facility] [address] [address] [address] Tori Thomas MONO # 0.4 103/ul Normal 0.3-0.8 [facility] Comment on above: Performed By: #### P T, PTT #### [facility] [address] [place] [address] Dr. Tori Thomas Monocytes/100 WBC (Bld) 5.1 % Normal 1.7-12.0 [facility] Comment on above: Performed By: #### P T, PTT #### [facility] [address] [place] [address] Dr. Tori Thomas NEUT # 4.4 103/ul Normal 1.4-6.5 [facility] Comment on above: Performed By: #### P T, PTT #### [facility] [address] [place] [address] Dr. Tori Thomas Neutrophils/100 WBC (Bld) 63.8 % Normal 43.0-75.0 [facility] Comment on above: Performed By: #### P T, PTT #### [facility] [address] [place] [address] Dr. Tori Thomas Platelet mean volume (Bld) [Entitic vol] 9.3 fL Critically low 9.5-13.5 [facility] Comment on above: Performed By: #### P T, PTT #### [facility] [address] [place] [address] Dr. Tori Thomas PLT 390 103/ul Normal 150-450 [facility] Comment on above: Performed By: #### P T, PTT #### [facility] [address] [place] [address] Dr. Tori Thomas RBC 2.86 106/ul Critically low 4.20-5.40 [facility] Comment on above: Performed By: #### P T, PTT #### [facility] [address] [place] [address] Dr. Tori Thomas WBC 6.9 103/ul Normal 4.0-11.0 [facility] Comment on above: Performed By: #### P T, PTT #### [facility] [address] [address] [address] Tori Thomas FERRITINon 06-04-2022 Ferritin [Mass/Vol] 10.0 ng/mL Normal 6.2-137.0 [facility] Comment on above: Performed By: #### P T, PTT #### [facility] [address] [address] [address] Tori Thomas IRONon 06-04-2022 Iron [Mass/Vol] 124.0 ug/dL Normal 50.0-170.0 [facility] Comment on above: Performed By: #### P T, PTT #### [facility] [address] [address] [address] Tori Thomas LeukoReduced RBCon LeukoReduced RBC TRANSFUSED 06/05/22 0035 [facility] Type and Screenon 06-04-2022 ABO and Rh group Nom (Bld) Blood group O Rh(D) positive [facility] VITAMIN B12on 06-04-2022 Cobalamin (Vitamin B12) [Mass/Vol] 608.0 pg/mL Normal 193.0-986. 0 [facility] Comment on above: Performed By: #### P T, PTT #### [facility] [address] [address] [address] Tori Thomas Urine culture routineOrdered By: Noman Armando on 06-01-2022 Bacteria identified Cx Nom (U) Escherichia coli (ESBL) [facility] Albumin [Mass/volume] in Ser um or PlasmaOrdered By: Noman Armando on 05-30-2022 Albumin [Mass/Vol] 3.8 g/dL 3.2-5.5 [facility] Automated erythrocytes count in urine sediment (number/area)Ordered By: Noman Armando on 05-30-2022 RBC Auto (Urine sed) [#/Area] 3-4 [HPF] 0-4 [facility] Automated leukocytes count i n urine sediment (number/area)Ordered By: Noman Armando on 05-30-2022 WBC Auto (Urine sed) [#/Area] 50-100 [HPF] 0-4 [facility] Basophils Auto (Bld) [#/Vol] Ordered By: Noman Armando on 05-30-2022 Basophils (Bld) [#/Vol] 0.0 10*3/uL 0.0-0.2 [facility] Basophils/100 WBC Auto (Bld) Ordered By: Noman Armando on 05-30-2022 Basophils/100 WBC (Bld) 0.2 % . [facility] Bilirubin Test strip Ql (U)O rdered By: Noman Armando on 05-30-2022 Bilirubin Ql (U) Negative Negative [facility] CT abdomen pelvis wo conon 1 07-31-2021 CT abdomen pelvis wo con [facility] [place] [address] [place] [address] CT Scan Report Signed Patient: Raquel Correa MR#: [id number] : 1985 Acct:[id number] Age/Sex: 37 / F ADM Date: 05/30/22 Loc: ER Room: Type: [facility] ER Attending Dr: Copies to: Noman Armando [...] Gregory Hart M.D.05/30/2022 2:08 PM Dictation Location: [place] [address] Transcribed By: [facility] 05/30/22 1408 Dictated By: Gregory Hart DO 05/30/22 1359 Signed By: 05/30/22 1408 Normal [facility] Color Auto (U)Ordered By: Christianne Armando on 05-30-2022 Color (U) Yellow Yellow [facility] Complete Blood Count Auto Di ffon 05-30-2022 Basophils (Bld) [#/Vol] 0.0 10*3/uL Normal 0.0-0.2 [facility] Comment on above: Result Comment: PERF ORMED BY: [place] [id number] PATHOLOGIST [employer] RADHA GARCIA M.D. Performed By: #### C BC, MG, CMP, ESR, LIPASE, TSH3 #### [facility] [address] [place] [address] Basophils/100 WBC (Bld) 0.2 % Normal . [facility] Comment on above: Performed By: #### C BC, MG, CMP, ESR, LIPASE, TSH3 #### [facility] [address] Eosinophils (Bld) [#/Vol] 0.0 10*3/uL Normal 0.0-0.45 [facility] Comment on above: Performed By: #### C BC, MG, CMP, ESR, LIPASE, TSH3 #### [address] Eosinophils/100 WBC (Bld) 0.4 % Normal . [facility] Comment on above: Performed By: #### C BC, MG, CMP, ESR, LIPASE, TSH3 #### [address] Erythrocyte distribution width (RBC) [Ratio] 19.4 % High 11.9-15.3 [facility] Comment on above: Performed By: #### C BC, MG, CMP, ESR, LIPASE, TSH3 #### [address] Hematocrit (Bld) [Volume fraction] 35.6 % Normal 34.0-46.4 [facility] Comment on above: Performed By: #### C BC, MG, CMP, ESR, LIPASE, TSH3 #### [address] Hemoglobin (Bld) [Mass/Vol] 11.3 g/dL Low 11.8-15.4 [facility] Comment on above: Performed By: #### C BC, MG, CMP, ESR, LIPASE, TSH3 #### [address] Lymphocytes (Bld) [#/Vol] 0.9 10*3/uL Low 1.00-4.8 [facility] Comment on above: Performed By: #### C BC, MG, CMP, ESR, LIPASE, TSH3 #### [address] Lymphocytes/100 WBC (Bld) 15.1 % Normal . [facility] Comment on above: Performed By: #### C BC, MG, CMP, ESR, LIPASE, TSH3 #### [address] MCH (RBC) [Entitic mass] 25.0 pg Normal 24.7-34.3 [facility] Comment on above: Performed By: #### C BC, MG, CMP, ESR, LIPASE, TSH3 #### [address] MCV (RBC) [Entitic vol] 79.2 fL Low 80-100 [facility] Comment on above: Performed By: #### C BC, MG, CMP, ESR, LIPASE, TSH3 #### [facility] [address] Mean Corpuscular HGB Conc 31.6 g/dL Low 32.0-35.0 [facility] Comment on above: Performed By: #### C BC, MG, CMP, ESR, LIPASE, TSH3 #### [address] Monocytes (Bld) [#/Vol] 0.4 10*3/uL Normal 0.0-0.8 [facility] Comment on above: Performed By: #### C BC, MG, CMP, ESR, LIPASE, TSH3 #### [address] Monocytes/100 WBC (Bld) 23.71 % High 0.00-20.00 [facility] Comment on above: Result Comment: For adults in ED, MDW > 20.0 may be associated with a higher risk of sepsis during the first 12 hrs of hospital admission Performed By: #### C BC, MG, CMP, ESR, LIPASE, TSH3 #### [address] Monocytes/100 WBC (Bld) 7.2 % Normal . [facility] Comment on above: Performed By: #### C BC, MG, CMP, ESR, LIPASE, TSH3 #### [address] Neutrophils (Bld) [#/Vol] 4.8 10*3/uL Normal 1.8-7.7 [facility] Comment on above: Performed By: #### C BC, MG, CMP, ESR, LIPASE, TSH3 #### [place] [address] [place] Neutrophils/100 WBC (Bld) 77.1 % Normal . [facility] Comment on above: Performed By: #### C BC, MG, CMP, ESR, LIPASE, TSH3 #### [place] [address] [place] NRBC% 0.1 /100{WBC} Normal 0-0.5 [facility] Comment on above: Performed By: #### C BC, MG, CMP, ESR, LIPASE, TSH3 #### [address] Platelet mean volume (Bld) [Entitic vol] 8.5 fL Normal 6.3-10.7 [facility] Comment on above: Performed By: #### C BC, MG, CMP, ESR, LIPASE, TSH3 #### [address] Platelets (Bld) [#/Vol] 372 10*3/uL Normal 150-450 [facility] Comment on above: Performed By: #### C BC, MG, CMP, ESR, LIPASE, TSH3 #### [address] RBC (Bld) [#/Vol] 4.50 10*6/uL Normal 3.60-5.00 [facility] Comment on above: Performed By: #### C BC, MG, CMP, ESR, LIPASE, TSH3 #### [address] WBC (Bld) [#/Vol] 6.2 10*3/uL Normal 3.8-11.6 [facility] Comment on above: Performed By: #### C BC, MG, CMP, ESR, LIPASE, TSH3 #### [address] Comprehensive Metabolic Pane eagle 05-30-2022 Albumin [Mass/Vol] 3.8 g/dL Normal 3.2-5.5 [facility] Comment on above: Performed By: #### C BC, MG, CMP, ESR, LIPASE, TSH3 #### [address] Albumin/Globulin [Mass ratio] 1.0 {ratio} Normal [facility] Comment on above: Performed By: #### C BC, MG, CMP, ESR, LIPASE, TSH3 #### [address] ALP [Catalytic activity/Vol] 71 U/L Normal 32-92 [facility] Comment on above: Performed By: #### C BC, MG, CMP, ESR, LIPASE, TSH3 #### [facility] [address] ALT [Catalytic activity/Vol] 21 U/L Normal 10-60 [facility] Comment on above: Performed By: #### C BC, MG, CMP, ESR, LIPASE, TSH3 #### [facility] [address] Anion gap [Moles/Vol] 11.8 mmol/L Normal 6.0-15.[address] [facility] Comment on above: Performed By: #### C BC, MG, CMP, ESR, LIPASE, TSH3 #### [address] AST [Catalytic activity/Vol] 16 U/L Normal 10-42 [facility] Comment on above: Performed By: #### C BC, MG, CMP, ESR, LIPASE, TSH3 #### [address] Bilirubin [Mass/Vol] 0.7 mg/dL Normal 0.3-1.2 [facility] Comment on above: Performed By: #### C BC, MG, CMP, ESR, LIPASE, TSH3 #### [address] Calcium [Mass/Vol] 9.4 mg/dL Normal 8.2-10.2 [facility] Comment on above: Performed By: #### C BC, MG, CMP, ESR, LIPASE, TSH3 #### [address] Chloride [Moles/Vol] 101 mmol/L Normal 95-114 [facility] Comment on above: Performed By: #### C BC, MG, CMP, ESR, LIPASE, TSH3 #### [address] CO2 [Moles/Vol] 24.1 mmol/L Normal 22.0-30.0 [facility] Comment on above: Performed By: #### C BC, MG, CMP, ESR, LIPASE, TSH3 #### [address] Creatinine [Mass/Vol] 0.71 mg/dL Normal 0.44-1.03 [facility] Comment on above: Performed By: #### C BC, MG, CMP, ESR, LIPASE, TSH3 #### [address] Creatinine Clr Calc Pharmacy 91.48 [facility] Comment on above: Result Comment: PERF ORMED BY: [place] [id number] PATHOLOGIST [employer]ARD DRAFTER RADHA GARCIA M.D. Performed By: #### C BC, MG, CMP, ESR, LIPASE, TSH3 #### [address] Estimated GFR ( Letty > 60 [facility] Comment on above: Result Comment: GFR estimated reference range: According to KDOQI guidelines, <60 ml/min/1.73m2 is sufficient to diagnose a patient with chronic kidney disease. Performed By: #### C BC, MG, CMP, ESR, LIPASE, TSH3 #### [address] Estimated GFR (Non- Am > 60 [facility] Comment on above: Performed By: #### C BC, MG, CMP, ESR, LIPASE, TSH3 #### [address] Globulin (S) [Mass/Vol] 3.7 g/dL [facility] Comment on above: Performed By: #### C BC, MG, CMP, ESR, LIPASE, TSH3 #### [address] Glucose [Mass/Vol] 102 mg/dL High 70-100 [facility] Comment on above: Result Comment: [place] Glucose Reference Range is dependent on time and content of last meal. Glucose of more than 200 mg/dL in a nonstressed, ambulatory subject supports the diagnosis of Diabetes Mellitus. ADA recommended reference range Performed By: #### C BC, MG, CMP, ESR, LIPASE, TSH3 #### [facility] [address] Potassium [Moles/Vol] 2.9 mmol/L Off scale low 3.5-5.1 [facility] Comment on above: Result Comment: Resu lts called at 1257 on 05/30/22 Performed By: #### C BC, MG, CMP, ESR, LIPASE, TSH3 #### [facility] [address] Protein [Mass/Vol] 7.5 g/dL Normal 6.1-7.9 [facility] Comment on above: Performed By: #### C BC, MG, CMP, ESR, LIPASE, TSH3 #### [facility] [address] Sodium [Moles/Vol] 134 mmol/L Low 136-146 [facility] Comment on above: Performed By: #### C BC, MG, CMP, ESR, LIPASE, TSH3 #### [facility] [address] [place] [address] [place] Urea nitrogen [Mass/Vol] 7 mg/dL Low 9-23 [facility] Comment on above: Performed By: #### C BC, MG, CMP, ESR, LIPASE, TSH3 #### [facility] [address] Creatinine and Glomerular fi ltration rate.predicted panel (S/P/Bld)Ordered By: Noman Armando on 05-30-2022 Creatinine [Mass/Vol] 0.71 mg/dL 0.44-1.03 [facility] Dipstick and Microscopicon 1 07-31-2021 Appearance (U) Cloudy Critically abnormal Clear [facility] Comment on above: Order Comment: Name Collection Type:: Clean-Voided Midstream Performed By: #### L IPASE, PT, CBC, PTT, CMP #### [facility] [address] [place] [address] [place] Bacteria,Urine 4+ High None Seen [facility] Comment on above: Order Comment: Name Collection Type:: Clean-Voided Midstream Performed By: #### L IPASE, PT, CBC, PTT, CMP #### [facility] [address] [place] [address] [place] Bilirubin,Urine Negative Normal Negative [facility] Comment on above: Order Comment: Name Collection Type:: Clean-Voided Midstream Performed By: #### L IPASE, PT, CBC, PTT, CMP #### [facility] [address] [place] [address] [place] Color (U) Yellow Normal Yellow [facility] Comment on above: Order Comment: Name Collection Type:: Clean-Voided Midstream Performed By: #### L IPASE, PT, CBC, PTT, CMP #### [address] Glucose Ql (U) Normal Normal Normal [facility] Comment on above: Order Comment: Name Collection Type:: Clean-Voided Midstream Performed By: #### L IPASE, PT, CBC, PTT, CMP #### [facility] [address] [place] [address] [place] Hyaline Casts,Urine 9-19 High 0-8 [facility] Comment on above: Order Comment: Name Collection Type:: Clean-Voided Midstream Performed By: #### L IPASE, PT, CBC, PTT, CMP #### [facility] [address] [place] [address] [place] Ketones Ql (U) Trace High Negative [facility] Comment on above: Order Comment: Name Collection Type:: Clean-Voided Midstream Performed By: #### L IPASE, PT, CBC, PTT, CMP #### [facility] [address] [place] [address] [place] Leukocyte esterase Test strip Ql (U) 3+ High Negative [facility] Comment on above: Order Comment: Name Collection Type:: Clean-Voided Midstream Performed By: #### L IPASE, PT, CBC, PTT, CMP #### [facility] [address] [place] [address] [place] Nitrite,Urine Positive High Negative [facility] Comment on above: Order Comment: Name Collection Type:: Clean-Voided Midstream Performed By: #### L IPASE, PT, CBC, PTT, CMP #### [address] Occult Blood,Urine Negative Normal Negative [facility] Comment on above: Order Comment: Name Collection Type:: Clean-Voided Midstream Performed By: #### L IPASE, PT, CBC, PTT, CMP #### [address] pH (U) 6.0 [pH] Normal 5.0-9.0 [facility] Comment on above: Order Comment: Name Collection Type:: Clean-Voided Midstream Performed By: #### L IPASE, PT, CBC, PTT, CMP #### [address] Protein,Urine Trace High Negative [facility] Comment on above: Order Comment: Name Collection Type:: Clean-Voided Midstream Performed By: #### L IPASE, PT, CBC, PTT, CMP #### [address] RBC,Urine 3-4 Normal 0-4 [facility] Comment on above: Order Comment: Name Collection Type:: Clean-Voided Midstream Performed By: #### L IPASE, PT, CBC, PTT, CMP #### [address] Specificy [place],Urine 1.013 Normal 1.001-1.03 0 [facility] Comment on above: Order Comment: Name Collection Type:: Clean-Voided Midstream Performed By: #### L IPASE, PT, CBC, PTT, CMP #### [address] Squamous Epithelial Cell,Urine 0-1 Normal 0-2 [facility] Comment on above: Order Comment: Name Collection Type:: Clean-Voided Midstream Performed By: #### L IPASE, PT, CBC, PTT, CMP #### [address] Urobilinogen,Urine Normal Normal Normal [facility] Comment on above: Order Comment: Name Collection Type:: Clean-Voided Midstream Performed By: #### L IPASE, PT, CBC, PTT, CMP #### [facility] [address] WBC,Urine 50-100 High 0-4 [facility] Comment on above: Order Comment: Name Collection Type:: Clean-Voided Midstream Performed By: #### L IPASE, PT, CBC, PTT, CMP #### [facility] [address] Eosinophils Auto (Bld) [#/Vo l]Ordered By: Noman Armando on 05-30-2022 Eosinophils (Bld) [#/Vol] 0.0 10*3/uL 0.0-0.45 [facility] Eosinophils/100 WBC Auto (Bl d)Ordered By: Noman Armando on 05-30-2022 Eosinophils/100 WBC (Bld) 0.4 % . [facility] Erythrocyte distribution wid th Auto (RBC) [Ratio]Ordered By: Noman Armando on 05-30-2022 Erythrocyte distribution width (RBC) [Ratio] 19.4 % 11.9-15.3 [facility] Estimated glomerular filtrat ion rate (GFR) non- AmericanOrdered By: Noman Armando on 05-30-2022 GFR/1.73 sq M.predicted among non-blacks MDRD (S/P/Bld) [Vol rate/Area] > 60 mL/Min [facility] Globulin Calc (S) [Mass/Vol] Ordered By: Noman Armando on 05-30-2022 Globulin (S) [Mass/Vol] 3.7 g/dL [facility] HCG ( test) IA.rapi d Ql (U)Ordered By: Noman Armando on 05-30-2022 HCG ( test) Ql (U) Negative [facility] HCG,Urineon 05-30-2022 Beta HCG ( test) Ql (U) Negative Normal [facility] Comment on above: Order Comment: Name Collection Type:: Clean-Voided Midstream Result Comment: PERF ORMED BY: [place] [id number] PATHOLOGIST [employer] DRAFTER RADHA GARCIA M.D. Performed By: #### L IPASE, PT, CBC, PTT, CMP #### [facility] [address] [place] [address] Hematocrit Auto (Bld) [Volum e fraction]Ordered By: Noman Armando on 05-30-2022 Hematocrit (Bld) [Volume fraction] 35.6 % 34.0-46.4 [facility] Hemoglobin [Mass/volume] in BloodOrdered By: Noman Armando on 05-30-2022 Hemoglobin (Bld) [Mass/Vol] 11.3 g/dL 11.8-15.4 [facility] Ketones Auto test strip (U) [Mass/Vol]Ordered By: Noman Armando on 05-30-2022 Ketones (U) [Mass/Vol] Trace Negative [facility] Laboratory - UrinalysisOrder ed By: Noman Armando on 05-30-2022 Hyaline casts LM Ql (Urine sed) 9-19 [LPF] 0-8 [facility] Lactic Acidon 05-30-2022 Lactate [Moles/Vol] 1.1 mmol/L Normal 0.5-2.2 [facility] Comment on above: Result Comment: PERF ORMED BY: [place] [id number] PATHOLOGIST [employer] RADHA GARCIA M.D. Performed By: #### C BC, MG, CMP, ESR, LIPASE, TSH3 #### [facility] [address] [place] [address] Leukocytes [#/volume] correc rosales for nucleated erythrocytes in Blood by Automated counOrdered By: Noman Armando on 05-30-2022 WBC corrected for nucl RBC Auto (Bld) [#/Vol] 6.2 10*3/uL 3.8-11.6 [facility] Lymphocytes Auto (Bld) [#/Vo l]Ordered By: Noman Armando on 05-30-2022 Lymphocytes (Bld) [#/Vol] 0.9 10*3/uL 1.00-4.8 [facility] Lymphocytes/100 WBC Auto (Bl d)Ordered By: Noman Aramndo on 05-30-2022 Lymphocytes/100 WBC (Bld) 15.1 % . [facility] MCH Auto (RBC) [Entitic mass ]Ordered By: Noman Armando on 05-30-2022 MCH (RBC) [Entitic mass] 25.0 pg 24.7-34.3 [facility] MCHC Auto (RBC) [Mass/Vol]Or dered By: Noman Armando on 05-30-2022 MCHC (RBC) [Mass/Vol] 31.6 g/dL 32.0-35.0 [facility] MCV Auto (RBC) [Entitic vol] Ordered By: Noman Armando on 05-30-2022 MCV (RBC) [Entitic vol] 79.2 fL 80-100 [facility] Monocyte distribution width [Entitic volume] in Blood by AutomatedOrdered By: Noman Armando on 05-30-2022 Monocyte distribution width Auto (Bld) [Entitic vol] 23.71 % 0.00-20.00 [facility] Comment on above: For adults in ED, MD W > 20.0 may be associated with a higher risk of sepsis during the first 12 hrs of hospital admission Monocytes Auto (Bld) [#/Vol] Ordered By: Noman Armando on 05-30-2022 Monocytes (Bld) [#/Vol] 0.4 10*3/uL 0.0-0.8 [facility] Monocytes/100 WBC Auto (Bld) Ordered By: Noman Armando on 05-30-2022 Monocytes/100 WBC (Bld) 7.2 % . [facility] Neutrophils Auto (Bld) [#/Vo l]Ordered By: Noman Armando on 05-30-2022 Neutrophils (Bld) [#/Vol] 4.8 10*3/uL 1.8-7.7 [facility] Neutrophils/100 WBC Auto (Bl d)Ordered By: Noman Armando on 05-30-2022 Neutrophils/100 WBC (Bld) 77.1 % . [facility] Nitrite Test strip Ql (U)Ord ered By: Noman Armando on 05-30-2022 Nitrite Ql (U) Positive Negative [facility] No Panel InformationOrdered By: Noman Armando on 05-30-2022 Estimated GFR () > 60 mL/Min [facility] Comment on above: GFR estimated refere nce range: According to KDOQI guidelines, <60 ml/min/1.73m2 is sufficient to diagnose a patient with chronic kidney disease. Pharmacy Creatinine Clearance (Chem 91.48 [facility] Nucleated erythrocytes [Pres ence] in Blood by Automated countOrdered By: Noman Armando on 05-30-2022 Nucleated RBC Auto Ql (Bld) 0.1 /100{WBC} 0-0.5 [facility] Platelet mean volume Auto (B ld) [Entitic vol]Ordered By: Noman Armando on 05-30-2022 Platelet mean volume (Bld) [Entitic vol] 8.5 fL 6.3-10.7 [facility] Platelets Auto (Bld) [#/Vol] Ordered By: Noman Armando on 05-30-2022 Platelets (Bld) [#/Vol] 372 10*3/uL 150-450 [facility] Protein Auto test strip (U) [Mass/Vol]Ordered By: Noman Armando on 05-30-2022 Protein (U) [Mass/Vol] Trace mg/dL Negative [facility] Protein [Mass/volume] in Ser um or PlasmaOrdered By: Noman Armando on 05-30-2022 Protein [Mass/Vol] 7.5 g/dL 6.1-7.9 [facility] RBC Auto (Bld) [#/Vol]Ordere d By: Noman Armando on 05-30-2022 RBC (Bld) [#/Vol] 4.50 10*6/uL 3.60-5.00 [facility] Serum or plasma alanine carlos otransferase measurement without P-5'-P (enzymatic activiOrdered By: Noman Armando on 05-30-2022 ALT No additional P-5'-P [Catalytic activity/Vol] 21 U/L 10-60 [facility] Serum or plasma albumin/glob ulin mass ratioOrdered By: Noman Armando on 05-30-2022 Albumin/Globulin [Mass ratio] 1.0 {ratio} [facility] Serum or plasma alkaline belkys sphatase measurement (enzymatic activity/volume)Ordered By: Noman Armando on 05-30-2022 ALP [Catalytic activity/Vol] 71 U/L 32-92 [facility] Serum or plasma anion gap de terminationOrdered By: Noman Armando on 05-30-2022 Anion gap [Moles/Vol] 11.8 mmol/L 6.0-15.[address] [facility] Serum or plasma aspartate am inotransferase measurement (enzymatic activity/volume)Ordered By: Noman Armando on 05-30-2022 AST [Catalytic activity/Vol] 16 U/L 10-42 [facility] Serum or plasma calcium mariana urement (mass/volume)Ordered By: Noman Armando on 05-30-2022 Calcium [Mass/Vol] 9.4 mg/dL 8.2-10.2 [facility] Serum or plasma chloride jaqui surement (moles/volume)Ordered By: Noman Armando on 05-30-2022 Chloride [Moles/Vol] 101 mmol/L 95-114 [facility] Serum or plasma glucose mariana urement (mass/volume)Ordered By: Noman Armando on 05-30-2022 Glucose [Mass/Vol] 102 mg/dL 70-100 [facility] Comment on above: ADA recommended refe rence rangeRandom Glucose Reference Range is dependent on time and content of last meal. Glucose of more than 200 mg/dL in a nonstressed, ambulatory subject supports the diagnosis of Diabetes Mellitus. Serum or plasma potassium me asurement (moles/volume)Ordered By: Noman Armando on 05-30-2022 Potassium [Moles/Vol] 2.9 mmol/L 3.5-5.1 [facility] Comment on above: Results calledat 125 7 on 05/30/22 Serum or plasma sodium measu rement (moles/volume)Ordered By: Noman Armando on 05-30-2022 Sodium [Moles/Vol] 134 mmol/L 136-146 [facility] Serum or plasma total biliru bin measurement (mass/volume)Ordered By: Noman Armando on 05-30-2022 Bilirubin [Mass/Vol] 0.7 mg/dL 0.3-1.2 [facility] Serum or plasma total carbon dioxide measurement (moles/volume)Ordered By: Noman Armando on 05-30-2022 CO2 [Moles/Vol] 24.1 mmol/L 22.0-30.0 [facility] Serum or plasma urea nitroge n measurement (mass/volume)Ordered By: Noman Armando on 05-30-2022 Urea nitrogen [Mass/Vol] 7 mg/dL 9 [facility] Specific gravity Auto test s trip (U) [Rel density]Ordered By: Noman Armando on 05-30-2022 Specific gravity (U) [Rel density] 1.013 1.001-1.03 0 [facility] Squamous epithelial cells de tection in urine sediment by light microscopyOrdered By: Noman Armando on 05-30-2022 Epithelial cells.squamous LM Ql (Urine sed) 0-1 [HPF] 0-2 [facility] Urine Cultureon 05-30-2022 Bacteria identified Cx Nom (U) ORGANISM: Escherichia coli (ESBL) (O:ESCCOLESBL) [place] Count >100,000 Aerobic DIVYA Charge (NUC86) SUSCEPTIBILITY [...] RESISTANT TO ALL B-LACTAM DRUGS. PERFORMED BY: [address] [place] [address] PATHOLOGIST [employer]ARD DRAFTER RADHA GARCIA M.D. Normal [facility] Comment on above: Performed By: #### L IPASE, PT, CBC, PTT, CMP #### [facility] [address] Urine bacteria detection by automated methodOrdered By: Noman Armando on 05-30-2022 Bacteria Auto Ql (U) 4+ None Seen [facility] Urine clarity by refractomet ry automatedOrdered By: Noman Armando on 05-30-2022 Clarity Refractometry automated (U) Cloudy Clear [facility] Urine culture routineOrdered By: Noman Armando on 05-30-2022 Bacteria identified Cx Nom (U) Escherichia coli (ESBL) [facility] Urine glucose measurement by automated test strip (mass/volume)Ordered By: Noman Armando on 05-30-2022 Glucose Auto test strip (U) [Mass/Vol] Normal mg/dL Normal [facility] Urine hemoglobin detection b y automated test stripOrdered By: Noman Armando on 05-30-2022 Hemoglobin Auto test strip Ql (U) Negative Negative [facility] Urine lactic acid measuremen tOrdered By: Noman Armando on 05-30-2022 Lactate (U) [Moles/Vol] 1.1 mmol/L 0.5-2.2 [facility] Urine leukocyte esterase det ection by automated test stripOrdered By: Noman Armando on 05-30-2022 Leukocyte esterase Auto test strip Ql (U) 3+ Negative [facility] Urobilinogen Auto test strip (U) [Mass/Vol]Ordered By: Noman Armando on 05-30-2022 Urobilinogen (U) [Mass/Vol] Normal mg/dL Normal [facility] WBC Auto (Bld) [#/Vol]Ordere d By: Noman Armando on 05-30-2022 WBC (Bld) [#/Vol] 6.2 10*3/uL 3.8-11.6 [facility] pH Auto test strip (U)Ordere d By: Noman Armando on 05-30-2022 pH (U) 6.0 [pH] 5.0-9.0 [facility] Basic Metabolic Panelon 11- Anion gap [Moles/Vol] 6.7 mmol/L Normal 6.0-15.0 [facility] Comment on above: Performed By: #### C BC, MG, CMP, ESR, LIPASE, TSH3 #### [address] Calcium [Mass/Vol] 8.7 mg/dL Normal 8.2-10.2 [facility] Comment on above: Performed By: #### C BC, MG, CMP, ESR, LIPASE, TSH3 #### [address] Chloride [Moles/Vol] 105 mmol/L Normal 95-114 [facility] Comment on above: Performed By: #### C BC, MG, CMP, ESR, LIPASE, TSH3 #### [address] CO2 [Moles/Vol] 25.0 mmol/L Normal 22.0-30.0 [facility] Comment on above: Performed By: #### C BC, MG, CMP, ESR, LIPASE, TSH3 #### [address] Creatinine [Mass/Vol] 0.71 mg/dL Normal 0.44-1.03 [facility] Comment on above: Performed By: #### C BC, MG, CMP, ESR, LIPASE, TSH3 #### [address] Creatinine Clr Calc Pharmacy 91.48 [facility] Comment on above: Result Comment: PERF ORMED BY: [place] [id number] PATHOLOGIST [employer] DRAFTER RADHA GARCIA M.D. Performed By: #### C BC, MG, CMP, ESR, LIPASE, TSH3 #### [address] Estimated GFR ( Letty > 60 Normal [facility] Comment on above: Result Comment: GFR estimated reference range: According to KDOQI guidelines, <60 ml/min/1.73m2 is sufficient to diagnose a patient with chronic kidney disease. Performed By: #### C BC, MG, CMP, ESR, LIPASE, TSH3 #### [facility] [address] Estimated GFR (Non- Am > 60 Normal [facility] Comment on above: Performed By: #### C BC, MG, CMP, ESR, LIPASE, TSH3 #### [facility] [address] Glucose [Mass/Vol] 106 mg/dL High 70-100 [facility] Comment on above: Result Comment: [facility] Glucose Reference Range is dependent on time and content of last meal. Glucose of more than 200 mg/dL in a nonstressed, ambulatory subject supports the diagnosis of Diabetes Mellitus. ADA recommended reference range Performed By: #### C BC, MG, CMP, ESR, LIPASE, TSH3 #### [facility] [address] Potassium [Moles/Vol] 3.7 mmol/L Normal 3.5-5.1 [facility] Comment on above: Performed By: #### C BC, MG, CMP, ESR, LIPASE, TSH3 #### [facility] [address] Sodium [Moles/Vol] 133 mmol/L Low 136-146 [facility] Comment on above: Performed By: #### C BC, MG, CMP, ESR, LIPASE, TSH3 #### [facility] [address] Urea nitrogen [Mass/Vol] 4 mg/dL Low 9-23 [facility] Comment on above: Performed By: #### C BC, MG, CMP, ESR, LIPASE, TSH3 #### [facility] [address] [place] [address] [place] Basophils Auto (Bld) [#/Vol] Ordered By: Jessica Akhtar on 05-12-2022 Basophils (Bld) [#/Vol] 0.0 10*3/uL 0.0-0.2 [facility] Basophils/100 WBC Auto (Bld) Ordered By: Jessica Akhtar on 05-12-2022 Basophils/100 WBC (Bld) 0.4 % . [facility] Complete Blood Count Auto Di ffon 05-12-2022 Basophils (Bld) [#/Vol] 0.0 10*3/uL Normal 0.0-0.2 [facility] Comment on above: Result Comment: PERF ORMED BY: [place] [id number] PATHOLOGIST [employer] RADHA GARCIA M.D. Performed By: #### C BC, MG, CMP, ESR, LIPASE, TSH3 #### [address] Basophils/100 WBC (Bld) 0.4 % Normal . [facility] Comment on above: Performed By: #### C BC, MG, CMP, ESR, LIPASE, TSH3 #### [address] Eosinophils (Bld) [#/Vol] 0.0 10*3/uL Normal 0.0-0.45 [facility] Comment on above: Performed By: #### C BC, MG, CMP, ESR, LIPASE, TSH3 #### [address] Eosinophils/100 WBC (Bld) 0.5 % Normal . [facility] Comment on above: Performed By: #### C BC, MG, CMP, ESR, LIPASE, TSH3 #### [address] Erythrocyte distribution width (RBC) [Ratio] 19.3 % High 11.9-15.3 [facility] Comment on above: Performed By: #### C BC, MG, CMP, ESR, LIPASE, TSH3 #### [address] Hematocrit (Bld) [Volume fraction] 29.1 % Low 34.0-46.4 [facility] Comment on above: Performed By: #### C BC, MG, CMP, ESR, LIPASE, TSH3 #### [place] [address] [place] Hemoglobin (Bld) [Mass/Vol] 9.2 g/dL Low 11.8-15.4 [facility] Comment on above: Performed By: #### C BC, MG, CMP, ESR, LIPASE, TSH3 #### [address] Lymphocytes (Bld) [#/Vol] 1.6 10*3/uL Normal 1.00-4.8 [facility] Comment on above: Performed By: #### C BC, MG, CMP, ESR, LIPASE, TSH3 #### [address] Lymphocytes/100 WBC (Bld) 18.1 % Normal . [facility] Comment on above: Performed By: #### C BC, MG, CMP, ESR, LIPASE, TSH3 #### [address] MCH (RBC) [Entitic mass] 25.1 pg Normal 24.7-34.3 [facility] Comment on above: Performed By: #### C BC, MG, CMP, ESR, LIPASE, TSH3 #### [address] MCV (RBC) [Entitic vol] 79.6 fL Low 80-100 [facility] Comment on above: Performed By: #### C BC, MG, CMP, ESR, LIPASE, TSH3 #### [address] Mean Corpuscular HGB Conc 31.6 g/dL Low 32.0-35.0 [facility] Comment on above: Performed By: #### C BC, MG, CMP, ESR, LIPASE, TSH3 #### [address] Monocytes (Bld) [#/Vol] 0.6 10*3/uL Normal 0.0-0.8 [facility] Comment on above: Performed By: #### C BC, MG, CMP, ESR, LIPASE, TSH3 #### [address] Monocytes/100 WBC (Bld) 6.4 % Normal . [facility] Comment on above: Performed By: #### C BC, MG, CMP, ESR, LIPASE, TSH3 #### [address] Neutrophils (Bld) [#/Vol] 6.8 10*3/uL Normal 1.8-7.7 [facility] [facility] Comment on above: Performed By: #### C BC, MG, CMP, ESR, LIPASE, TSH3 #### [address] Neutrophils/100 WBC (Bld) 74.6 % Normal . [facility] Comment on above: Performed By: #### C BC, MG, CMP, ESR, LIPASE, TSH3 #### [address] Nucleated RBC/100 WBC (Bld) [Ratio] 0.0 % Normal 0-0.5 [facility] Comment on above: Performed By: #### C BC, MG, CMP, ESR, LIPASE, TSH3 #### [address] Platelet mean volume (Bld) [Entitic vol] 7.9 fL Normal 6.3-10.7 [facility] Comment on above: Performed By: #### C BC, MG, CMP, ESR, LIPASE, TSH3 #### [place] [address] [place] Platelets (Bld) [#/Vol] 385 10*3/uL Normal 150-450 [facility] Comment on above: Performed By: #### C BC, MG, CMP, ESR, LIPASE, TSH3 #### [place] [address] [place] RBC (Bld) [#/Vol] 3.66 10*6/uL Normal 3.60-5.00 [facility] Comment on above: Performed By: #### C BC, MG, CMP, ESR, LIPASE, TSH3 #### [place] [address] [place] WBC (Bld) [#/Vol] 9.1 10*3/uL Normal 4.5-11.0 [facility] Comment on above: Performed By: #### C BC, MG, CMP, ESR, LIPASE, TSH3 #### [facility] [address] Creatinine and Glomerular fi ltration rate.predicted panel (S/P/Bld)Ordered By: Jessica Akhtar on 05-12-2022 Creatinine [Mass/Vol] 0.71 mg/dL 0.44-1.03 [facility] Eosinophils Auto (Bld) [#/Vo l]Ordered By: Jessica Akhtar on 05-12-2022 Eosinophils (Bld) [#/Vol] 0.0 10*3/uL 0.0-0.45 [facility] Eosinophils/100 WBC Auto (Bl d)Ordered By: Jessica Akhtar on 05-12-2022 Eosinophils/100 WBC (Bld) 0.5 % . [facility] Erythrocyte distribution wid th Auto (RBC) [Ratio]Ordered By: Jessica Akhtar on 05-12-2022 Erythrocyte distribution width (RBC) [Ratio] 19.3 % 11.9-15.3 [facility] Estimated glomerular filtrat ion rate (GFR) non- AmericanOrdered By: Jessica Akhtar on 05-12-2022 GFR/1.73 sq M.predicted among non-blacks MDRD (S/P/Bld) [Vol rate/Area] > 60 mL/Min [facility] Hematocrit Auto (Bld) [Volum e fraction]Ordered By: Jessica Akhtar on 05-12-2022 Hematocrit (Bld) [Volume fraction] 29.1 % 34.0-46.4 [facility] Hemoglobin [Mass/volume] in BloodOrdered By: Jessica Akhtar on 05-12-2022 Hemoglobin (Bld) [Mass/Vol] 9.2 g/dL 11.8-15.4 [facility] Laboratory - Hematology and Cell countsOrdered By: Jessica Akhtar on 05-12-2022 Nucleated RBC/100 WBC (Bld) [Ratio] 0.0 % 0-0.5 [facility] Leukocytes [#/volume] in Blo od by Automated countOrdered By: Jessica Akhtar on 05-12-2022 WBC (Bld) [#/Vol] 9.1 10*3/uL 4.5-11.0 [facility] Lymphocytes Auto (Bld) [#/Vo l]Ordered By: Jessica Akhtar on 05-12-2022 Lymphocytes (Bld) [#/Vol] 1.6 10*3/uL 1.00-4.8 [facility] Lymphocytes/100 WBC Auto (Bl d)Ordered By: Jessica Akhtar on 05-12-2022 Lymphocytes/100 WBC (Bld) 18.1 % . [facility] MCH Auto (RBC) [Entitic mass ]Ordered By: Jessica Akhtar on 05-12-2022 MCH (RBC) [Entitic mass] 25.1 pg 24.7-34.3 [facility] MCHC Auto (RBC) [Mass/Vol]Or dered By: Jessica Akhtar on 05-12-2022 MCHC (RBC) [Mass/Vol] 31.6 g/dL 32.0-35.0 [facility] MCV Auto (RBC) [Entitic vol] Ordered By: Jessica Akhtar on 05-12-2022 MCV (RBC) [Entitic vol] 79.6 fL 80-100 [facility] Monocytes Auto (Bld) [#/Vol] Ordered By: Jessica Akhtar on 05-12-2022 Monocytes (Bld) [#/Vol] 0.6 10*3/uL 0.0-0.8 [facility] Monocytes/100 WBC Auto (Bld) Ordered By: Jessica Akhtar on 05-12-2022 Monocytes/100 WBC (Bld) 6.4 % . [facility] Neutrophils Auto (Bld) [#/Vo l]Ordered By: Jessica Akhtar on 05-12-2022 Neutrophils (Bld) [#/Vol] 6.8 10*3/uL 1.8-7.7 [facility] Neutrophils/100 WBC Auto (Bl d)Ordered By: Jessica Akhtar on 05-12-2022 Neutrophils/100 WBC (Bld) 74.6 % . [facility] No Panel InformationOrdered By: Jessica Akhtar on 05-12-2022 Estimated GFR () > 60 mL/Min [facility] Comment on above: GFR estimated refere nce range: According to KDOQI guidelines, <60 ml/min/1.73m2 is sufficient to diagnose a patient with chronic kidney disease. Pharmacy Creatinine Clearance (Chem 91.48 [facility] Platelet mean volume Auto (B ld) [Entitic vol]Ordered By: Jessica Akhtar on 05-12-2022 Platelet mean volume (Bld) [Entitic vol] 7.9 fL 6.3-10.7 [facility] Platelets Auto (Bld) [#/Vol] Ordered By: Jessica Akhtar on 05-12-2022 Platelets (Bld) [#/Vol] 385 10*3/uL 150-450 [facility] RBC Auto (Bld) [#/Vol]Ordere d By: Jessica Akhtar on 05-12-2022 RBC (Bld) [#/Vol] 3.66 10*6/uL 3.60-5.00 [facility] Serum or plasma anion gap de terminationOrdered By: Jessica Akhtar on 05-12-2022 Anion gap [Moles/Vol] 6.7 mmol/L 6.0-15.0 [facility] Serum or plasma calcium mariana urement (mass/volume)Ordered By: Jessica Akhtar on 05-12-2022 Calcium [Mass/Vol] 8.7 mg/dL 8.2-10.2 [facility] Serum or plasma chloride jaqui surement (moles/volume)Ordered By: Jessica Akhtar on 05-12-2022 Chloride [Moles/Vol] 105 mmol/L 95-114 [facility] Serum or plasma glucose mariana urement (mass/volume)Ordered By: Jessica Akhtar on 05-12-2022 Glucose [Mass/Vol] 106 mg/dL 70-100 [facility] Comment on above: ADA recommended refe rence rangeRandom Glucose Reference Range is dependent on time and content of last meal. Glucose of more than 200 mg/dL in a nonstressed, ambulatory subject supports the diagnosis of Diabetes Mellitus. Serum or plasma potassium me asurement (moles/volume)Ordered By: Jessica Akhtar on 05-12-2022 Potassium [Moles/Vol] 3.7 mmol/L 3.5-5.1 [facility] Serum or plasma sodium measu rement (moles/volume)Ordered By: Jessica Akhtar on 05-12-2022 Sodium [Moles/Vol] 133 mmol/L 136-146 [facility] Serum or plasma total carbon dioxide measurement (moles/volume)Ordered By: Jessica Akhtar on 05-12-2022 CO2 [Moles/Vol] 25.0 mmol/L 22.0-30.0 [facility] Serum or plasma urea nitroge n measurement (mass/volume)Ordered By: Jessica Akhtar on 05-12-2022 Urea nitrogen [Mass/Vol] 4 mg/dL 9- [facility] Urine culture routineOrdered By: Truman Hu on 05-12-2022 Bacteria identified Cx Nom (U) Escherichia coli (ESBL) [facility] Complete Blood Count Auto Di ffon 05-11-2022 Basophils (Bld) [#/Vol] 0.0 10*3/uL Normal 0.0-0.2 [facility] Comment on above: Result Comment: PERF ORMED BY: [facility] [address] [place] [address] PATHOLOGIST [employer] RADHA GARCIA M.D. Performed By: #### C BC, MG, CMP, ESR, LIPASE, TSH3 #### [facility] [address] [place] [address] [place] Basophils/100 WBC (Bld) 0.6 % Normal . [facility] Comment on above: Performed By: #### C BC, MG, CMP, ESR, LIPASE, TSH3 #### [facility] [address] [place] [id number] [place] Eosinophils (Bld) [#/Vol] 0.1 10*3/uL Normal 0.0-0.45 [facility] Comment on above: Performed By: #### C BC, MG, CMP, ESR, LIPASE, TSH3 #### [address] Eosinophils/100 WBC (Bld) 0.9 % Normal . [facility] Comment on above: Performed By: #### C BC, MG, CMP, ESR, LIPASE, TSH3 #### [address] Erythrocyte distribution width (RBC) [Ratio] 19.5 % High 11.9-15.3 [facility] Comment on above: Performed By: #### C BC, MG, CMP, ESR, LIPASE, TSH3 #### [address] Hematocrit (Bld) [Volume fraction] 27.2 % Low 34.0-46.4 [facility] Comment on above: Performed By: #### C BC, MG, CMP, ESR, LIPASE, TSH3 #### [address] Hemoglobin (Bld) [Mass/Vol] 8.8 g/dL Low 11.8-15.4 [facility] Comment on above: Performed By: #### C BC, MG, CMP, ESR, LIPASE, TSH3 #### [address] Lymphocytes (Bld) [#/Vol] 1.7 10*3/uL Normal 1.00-4.8 [facility] Comment on above: Performed By: #### C BC, MG, CMP, ESR, LIPASE, TSH3 #### [address] Lymphocytes/100 WBC (Bld) 21.7 % Normal . [facility] Comment on above: Performed By: #### C BC, MG, CMP, ESR, LIPASE, TSH3 #### [address] MCH (RBC) [Entitic mass] 25.5 pg Normal 24.7-34.3 [facility] Comment on above: Performed By: #### C BC, MG, CMP, ESR, LIPASE, TSH3 #### [address] MCV (RBC) [Entitic vol] 78.9 fL Low 80-100 [facility] Comment on above: Performed By: #### C BC, MG, CMP, ESR, LIPASE, TSH3 #### [address] Mean Corpuscular HGB Conc 32.3 g/dL Normal 32.0-35.0 [facility] Comment on above: Performed By: #### C BC, MG, CMP, ESR, LIPASE, TSH3 #### [address] Monocytes (Bld) [#/Vol] 0.6 10*3/uL Normal 0.0-0.8 [facility] Comment on above: Performed By: #### C BC, MG, CMP, ESR, LIPASE, TSH3 #### [address] Monocytes/100 WBC (Bld) 7.6 % Normal . [facility] Comment on above: Performed By: #### C BC, MG, CMP, ESR, LIPASE, TSH3 #### [address] Neutrophils (Bld) [#/Vol] 5.5 10*3/uL Normal 1.8-7.7 [facility] Comment on above: Performed By: #### C BC, MG, CMP, ESR, LIPASE, TSH3 #### [address] Neutrophils/100 WBC (Bld) 69.2 % Normal . [facility] Comment on above: Performed By: #### C BC, MG, CMP, ESR, LIPASE, TSH3 #### [address] Nucleated RBC/100 WBC (Bld) [Ratio] 0.1 % Normal 0-0.5 [facility] Comment on above: Performed By: #### C BC, MG, CMP, ESR, LIPASE, TSH3 #### [address] Platelet mean volume (Bld) [Entitic vol] 7.8 fL Normal 6.3-10.7 [facility] Comment on above: Performed By: #### C BC, MG, CMP, ESR, LIPASE, TSH3 #### [address] Platelets (Bld) [#/Vol] 350 10*3/uL Normal 150-450 [facility] Comment on above: Performed By: #### C BC, MG, CMP, ESR, LIPASE, TSH3 #### [address] RBC (Bld) [#/Vol] 3.45 10*6/uL Low 3.60-5.00 [facility] Comment on above: Performed By: #### C BC, MG, CMP, ESR, LIPASE, TSH3 #### [address] WBC (Bld) [#/Vol] 8.0 10*3/uL Normal 4.5-11.0 [facility] Comment on above: Performed By: #### C BC, MG, CMP, ESR, LIPASE, TSH3 #### [address] US transvaginalon 05-11-2022 US transvaginal [facility] [place] [place] [address] Ultrasound Report Signed Patient: Raquel Correa MR#: [id number] : 1985 Acct:[id number] Age/Sex: 37 / F ADM Date: 05/09/22 Loc: Room: [address] [place] [address] Type: ADM IN Attending Dr: Jessica Akhtar MD Ordering Provider: Jessica Akhtar MD Date of Service: 05/11/22 US/US transvaginal: cystic adnexal structure on the right measuring 7.[address] ([id number]) US/US pelvic complete: . Copies to: Jessica [...] Gregory Hart M.D.05/11/2022 8:06 PM Dictation Location: [place] [address] Tech: Cyn Luevanoley Transcribed By: TIFFANIE 05/11/222005 Dictated By: Gregory Hart DO 05/11/222000 Signed By: 05/11/222005 Normal [facility] Basic Metabolic Panelon 11- Anion gap [Moles/Vol] 9.6 mmol/L Normal 6.0-15.0 [facility] Comment on above: Performed By: #### F ER, CBC, BMP ####[facility] [id number] [place] [address] [facility] Calcium [Mass/Vol] 8.5 mg/dL Normal 8.2-10.2 [facility] Comment on above: Performed By: #### F ER, CBC, BMP ####[facility] [id number] [place] [address] [facility] Chloride [Moles/Vol] 107 mmol/L Normal 95-114 [facility] Comment on above: Performed By: #### F ER, CBC, BMP ####[place] [address] [place] [address] [facility] CO2 [Moles/Vol] 24.1 mmol/L Normal 22.0-30.0 [facility] Comment on above: Performed By: #### F ER, CBC, BMP ####[place] [address] [place] [id number] [facility] Creatinine [Mass/Vol] 0.74 mg/dL Normal 0.44-1.03 [facility] Comment on above: Performed By: #### F ER, CBC, BMP ####[place] [address] Creatinine Clr Calc Pharmacy 87.78 [facility] Comment on above: Performed By: #### F ER, CBC, BMP ####[place] [address] [address] Estimated GFR ( Letty > 60 [facility] Comment on above: Result Comment: GFR estimated reference range: According to KDOQI guidelines, <60 ml/min/1.73m2 is sufficient to diagnose a patient with chronic kidney disease. Performed By: #### F ER, CBC, BMP ####[address] Estimated GFR (Non- Am > 60 [facility] Comment on above: Performed By: #### F ER, CBC, BMP ####[place] [id number] [facility] Glucose [Mass/Vol] 89 mg/dL Normal 70-100 [facility] Comment on above: Result Comment: [place] Glucose Reference Range is dependent on time and content of last meal. Glucose of more than 200 mg/dL in a nonstressed, ambulatory subject supports the diagnosis of Diabetes Mellitus. ADA recommended reference range Performed By: #### F ER, CBC, BMP ####[facility] [id number] [place], [place] [id number] [facility] Potassium [Moles/Vol] 3.7 mmol/L Normal 3.5-5.1 [facility] Comment on above: Performed By: #### F ER, CBC, BMP ####[place] [address] [place] [id number] [facility] Sodium [Moles/Vol] 137 mmol/L Normal 136-146 [facility] Comment on above: Performed By: #### F ER, CBC, BMP ####[place] [address] [place] [address] [facility] Urea nitrogen [Mass/Vol] 6 mg/dL Low 9- [facility] Comment on above: Performed By: #### F ER, CBC, BMP ####[place] [address] [place] [address] [facility] Complete Blood Count Auto Di ffon 05-10-2022 Basophils (Bld) [#/Vol] 0.1 10*3/uL Normal 0.0-0.2 [facility] Comment on above: Result Comment: PERF ORMED BY: [facility] [address] [place] [address] PATHOLOGIST [employer] RADHA GARCIA M.D. Performed By: #### F ER, CBC, BMP ####[place] [id number] [facility] Basophils/100 WBC (Bld) 1.3 % Normal . [facility] Comment on above: Performed By: #### F ER, CBC, BMP ####[place] [id number] [facility] Eosinophils (Bld) [#/Vol] 0.1 10*3/uL Normal 0.0-0.45 [facility] Comment on above: Performed By: #### F ER, CBC, BMP ####[place] [id number] [facility] Eosinophils/100 WBC (Bld) 0.9 % Normal . [facility] Comment on above: Performed By: #### F ER, CBC, BMP ####[place] [address] [place] [id number] [facility] Erythrocyte distribution width (RBC) [Ratio] 19.6 % High 11.9-15.3 [facility] Comment on above: Performed By: #### F ER, CBC, BMP ####[address] Hematocrit (Bld) [Volume fraction] 26.8 % Low 34.0-46.4 [facility] Comment on above: Performed By: #### F ER, CBC, BMP ####[address] Hemoglobin (Bld) [Mass/Vol] 8.7 g/dL Low 11.8-15.4 [facility] Comment on above: Performed By: #### F ER, CBC, BMP ####[address] Lymphocytes (Bld) [#/Vol] 1.7 10*3/uL Normal 1.00-4.8 [facility] Comment on above: Performed By: #### F ER, CBC, BMP ####[address] Lymphocytes/100 WBC (Bld) 23.9 % Normal . [facility] Comment on above: Performed By: #### F ER, CBC, BMP ####[address] MCH (RBC) [Entitic mass] 25.5 pg Normal 24.7-34.3 [facility] Comment on above: Performed By: #### F ER, CBC, BMP ####[address] MCV (RBC) [Entitic vol] 78.9 fL Low 80-100 [facility] Comment on above: Performed By: #### F ER, CBC, BMP ####[address] Mean Corpuscular HGB Conc 32.4 g/dL Normal 32.0-35.0 [facility] Comment on above: Performed By: #### F ER, CBC, BMP ####[address] Monocytes (Bld) [#/Vol] 0.4 10*3/uL Normal 0.0-0.8 [facility] Comment on above: Performed By: #### F ER, CBC, BMP ####[address] Monocytes/100 WBC (Bld) 6.3 % Normal . [facility] Comment on above: Performed By: #### F ER, CBC, BMP ####[address] Neutrophils (Bld) [#/Vol] 4.8 10*3/uL Normal 1.8-7.7 [facility] Comment on above: Performed By: #### F ER, CBC, BMP ####[address] Neutrophils/100 WBC (Bld) 67.6 % Normal . [facility] Comment on above: Performed By: #### F ER, CBC, BMP ####[address] Nucleated RBC/100 WBC (Bld) [Ratio] 0.0 % Normal 0-0.5 [facility] Comment on above: Performed By: #### F ER, CBC, BMP ####[address] Platelet mean volume (Bld) [Entitic vol] 7.5 fL Normal 6.3-10.7 [facility] Comment on above: Performed By: #### F ER, CBC, BMP ####[address] Platelets (Bld) [#/Vol] 388 10*3/uL Normal 150-450 [facility] Comment on above: Performed By: #### F ER, CBC, BMP ####[place] [id number] [facility] RBC (Bld) [#/Vol] 3.40 10*6/uL Low 3.60-5.00 [facility] Comment on above: Performed By: #### F ER, CBC, BMP ####[address] [place] [address] [facility] WBC (Bld) [#/Vol] 7.0 10*3/uL Normal 4.5-11.0 [facility] Comment on above: Performed By: #### F ER, CBC, BMP ####[facility] [place] [id number] [facility] Ferritinon 05-10-2022 Ferritin [Mass/Vol] 10.7 ng/mL Low -306.8 [facility] Comment on above: Result Comment: PERF ORMED BY: [facility] [address] [place] [address] PATHOLOGIST [employer] RADHA GARCIA M.D. Performed By: #### F ER, CBC, BMP ####[facility] [address] Ferritin [Mass/volume] in Se rum or PlasmaOrdered By: Jarad Mcmillan on 05-10-2022 Ferritin [Mass/Vol] 10.7 ng/mL -306.8 [facility] Stool Cultureon 05-10-2022 Stool culture Negative for Shiga T oxin 1 Negative for Shiga Toxin 2 -- A negative Shiga Toxin result may occur if the antigen level in the specimen is below the detection limit of the assay. Stool culture results No Salmonella, Shigella, Campy or E. coli 0157:H7 Isolated PERFORMED BY: [facility] [address] [place] [address] PATHOLOGIST [employer] RADHA GARCIA M.D. Normal [facility] Comment on above: Performed By: #### C BC, MG, CMP, ESR, LIPASE, TSH3 #### [facility] [address] Stool bacteria identificatio n by cultureOrdered By: Margarita Gay on 05-10-2022 Bacteria identified Cx Nom (Stl) [facility] Activated partial thrombopla stin time (aPTT) in platelet poor plasma by coagulation aOrdered By: Truman Hu on 05-09-2022 aPTT Coag (PPP) [Time] s 25.1-36.[address] [facility] Comment on above: Critical valueresult calledand read backat 1522 on 05/09/22 Albumin [Mass/volume] in Ser um or PlasmaOrdered By: Truman Hu on 05-09-2022 Albumin [Mass/Vol] 3.0 g/dL 3.2-5.5 [facility] Automated erythrocytes count in urine sediment (number/area)Ordered By: Truman Hu on 05-09-2022 RBC Auto (Urine sed) [#/Area] 0-1 [HPF] 0-4 [facility] Automated leukocytes count i n urine sediment (number/area)Ordered By: Truman Hu on 05-09-2022 WBC Auto (Urine sed) [#/Area] 50-100 [HPF] 0-4 [facility] Automated urine sediment catalina cium oxalate crystal count by microscopy (number/high powOrdered By: Truman Hu on 05-09-2022 Calcium oxalate crystals LM.HPF (Urine sed) [#/Area] 1+ [HPF] [facility] Bilirubin Test strip Ql (U)O rdered By: Truman Hu on 05-09-2022 Bilirubin Ql (U) Negative Negative [facility] C reactive protein [Mass/vol ume] in Serum or PlasmaOrdered By: Truman Hu on 05-09-2022 CRP [Mass/Vol] < 0.5 mg/dL 0.0-1.0 [facility] C-Reactive Proteinon 022 CRP [Mass/Vol] mg/L Normal 0.0-1.0 [facility] Comment on above: Result Comment: PERF ORMED BY: [place] [id number] PATHOLOGIST [employer] RADHA GARCIA M.D. Performed By: #### C BC, MG, CMP, ESR, LIPASE, TSH3 #### [address] Clostridioides difficile tox in B tcdB gene [Presence] in Stool by SARABJIT with probe deteOrdered By: Truman Hu on 05-09-2022 C. difficile toxin B tcdB gene SARABJIT+probe Ql (Stl) Negative Negative [facility] Comment on above: Testing performed by RT-PCR Clostridium Difficileon 04-27 Clostridium Difficile Negative Normal Negative Fir [facility] Comment on above: Order Comment: > or = to 3 loose/watery stools in the last 24 HRS? Y Is patient on promotility agents or tube feeding? N Result Comment: Test ing performed by RT-PCR PERFORMED BY: [facility] [address] [place] [address] PATHOLOGIST [employer] RADHA GARCIA M.D. Performed By: #### C BC, MG, CMP, ESR, LIPASE, TSH3 #### [facility] [address] Color Auto (U)Ordered By: Reagan Hu on 05-09-2022 Color (U) Yellow Yellow [facility] Complete Blood Count Auto Di ffon 05-09-2022 Basophils (Bld) [#/Vol] 0.1 10*3/uL Normal 0.0-0.2 [facility] Comment on above: Result Comment: PERF ORMED BY: [facility] [address] [place] [address] PATHOLOGIST [employer] RADHA GARCIA M.D. Performed By: #### P TT, CBC, PT, CMP ####[place] [address] [place] [address] [place] Basophils/100 WBC (Bld) 0.8 % Normal . [facility] Comment on above: Performed By: #### P TT, CBC, PT, CMP ####[place] [address] [place] [address] [place] Eosinophils (Bld) [#/Vol] 0.0 10*3/uL Normal 0.0-0.45 [facility] Comment on above: Performed By: #### P TT, CBC, PT, CMP ####[place] [address] [place] Eosinophils/100 WBC (Bld) 0.4 % Normal . [facility] Comment on above: Performed By: #### P TT, CBC, PT, CMP ####[address] Erythrocyte distribution width (RBC) [Ratio] 21.2 % High 11.9-15.3 [facility] Comment on above: Performed By: #### P TT, CBC, PT, CMP ####[address] Hematocrit (Bld) [Volume fraction] 22.4 % Low 34.0-46.4 [facility] Comment on above: Performed By: #### P TT, CBC, PT, CMP ####[address] Hemoglobin (Bld) [Mass/Vol] 6.9 g/dL Low 11.8-15.4 [facility] Comment on above: Performed By: #### P TT, CBC, PT, CMP ####[address] Lymphocytes (Bld) [#/Vol] 1.5 10*3/uL Normal 1.00-4.8 [facility] Comment on above: Performed By: #### P TT, CBC, PT, CMP ####[address] Lymphocytes/100 WBC (Bld) 20.1 % Normal . [facility] Comment on above: Performed By: #### P TT, CBC, PT, CMP ####[address] MCH (RBC) [Entitic mass] 24.5 pg Low 24.7-34.3 [facility] Comment on above: Performed By: #### P TT, CBC, PT, CMP ####[address] MCV (RBC) [Entitic vol] 79.7 fL Low 80-100 [facility] Comment on above: Performed By: #### P TT, CBC, PT, CMP ####[address] Mean Corpuscular HGB Conc 30.7 g/dL Low 32.0-35.0 [facility] Comment on above: Performed By: #### P TT, CBC, PT, CMP ####[address] Monocytes (Bld) [#/Vol] 0.4 10*3/uL Normal 0.0-0.8 [facility] Comment on above: Performed By: #### P TT, CBC, PT, CMP ####[address] Monocytes/100 WBC (Bld) 5.1 % Normal . [facility] Comment on above: Performed By: #### P TT, CBC, PT, CMP ####[address] Neutrophils (Bld) [#/Vol] 5.4 10*3/uL Normal 1.8-7.7 [facility] Comment on above: Performed By: #### P TT, CBC, PT, CMP ####[address] Neutrophils/100 WBC (Bld) 73.6 % Normal . [facility] Comment on above: Performed By: #### P TT, CBC, PT, CMP ####[address] Nucleated RBC/100 WBC (Bld) [Ratio] 0.0 % Normal 0-0.5 [facility] Comment on above: Performed By: #### P TT, CBC, PT, CMP ####[address] Platelet mean volume (Bld) [Entitic vol] 7.8 fL Normal 6.3-10.7 [facility] Comment on above: Performed By: #### P TT, CBC, PT, CMP ####[address] Platelets (Bld) [#/Vol] 372 10*3/uL Normal 150-450 [facility] Comment on above: Performed By: #### P TT, CBC, PT, CMP ####[address] RBC (Bld) [#/Vol] 2.81 10*6/uL Low 3.60-5.00 [facility] Comment on above: Performed By: #### P TT, CBC, PT, CMP ####[address] WBC (Bld) [#/Vol] 7.4 10*3/uL Normal 4.5-11.0 [facility] Comment on above: Performed By: #### P TT, CBC, PT, CMP ####[address] Comprehensive Metabolic Pane eagle 05-09-2022 Albumin [Mass/Vol] 3.0 g/dL Low 3.2-5.5 [facility] Comment on above: Performed By: #### P TT, CBC, PT, CMP ####[address] Albumin/Globulin [Mass ratio] 1.3 {ratio} Normal [facility] Comment on above: Performed By: #### P TT, CBC, PT, CMP ####[place] [id number] [facility] ALP [Catalytic activity/Vol] 55 U/L Normal 32-92 [facility] Comment on above: Performed By: #### P TT, CBC, PT, CMP ####[place] [id number] [facility] ALT [Catalytic activity/Vol] 22 U/L Normal 10-60 [facility] Comment on above: Performed By: #### P TT, CBC, PT, CMP ####[place] [id number] [facility] Anion gap [Moles/Vol] 10.0 mmol/L Normal 6.0-15.[address] [facility] Comment on above: Performed By: #### P TT, CBC, PT, CMP ####[address] [address] [facility] AST [Catalytic activity/Vol] 22 U/L Normal 10-42 [facility] Comment on above: Performed By: #### P TT, CBC, PT, CMP ####[place] [id number] [facility] Bilirubin [Mass/Vol] 0.5 mg/dL Normal 0.3-1.2 [facility] Comment on above: Performed By: #### P TT, CBC, PT, CMP ####[place] [id number] [facility] Calcium [Mass/Vol] 8.6 mg/dL Normal 8.2-10.2 [facility] Comment on above: Performed By: #### P TT, CBC, PT, CMP ####[place] [id number] [facility] Chloride [Moles/Vol] 106 mmol/L Normal 95-114 [facility] Comment on above: Performed By: #### P TT, CBC, PT, CMP ####[place] [id number] [facility] CO2 [Moles/Vol] 24.4 mmol/L Normal 22.0-30.0 [facility] Comment on above: Performed By: #### P TT, CBC, PT, CMP ####[place] [id number] [facility] Creatinine [Mass/Vol] 0.64 mg/dL Normal 0.44-1.03 [facility] Comment on above: Performed By: #### P TT, CBC, PT, CMP ####[place] [id number] [place] Creatinine Clr Calc Pharm[facility] 101.49 Normal [facility] Comment on above: Result Comment: PERF ORMED BY: [facility] [address] [place] [address] PATHOLOGIST [employer] RADHA GARCIA M.D. Performed By: #### P TT, CBC, PT, CMP ####[place] [id number] [place] [address] [facility] Estimated GFR ( Letty > 60 [facility] Comment on above: Result Comment: GFR estimated reference range: According to KDOQI guidelines, <60 ml/min/1.73m2 is sufficient to diagnose a patient with chronic kidney disease. Performed By: #### P TT, CBC, PT, CMP ####[place] [id number] [facility] Estimated GFR (Non- Am > 60 [facility] Comment on above: Performed By: #### P TT, CBC, PT, CMP ####[place] [id number] [facility] Globulin (S) [Mass/Vol] 2.4 g/dL [facility] Comment on above: Performed By: #### P TT, CBC, PT, CMP ####[place] [id number] [facility] Glucose [Mass/Vol] 91 mg/dL Normal 70-100 [facility] Comment on above: Result Comment: [place] Glucose Reference Range is dependent on time and content of last meal. Glucose of more than 200 mg/dL in a nonstressed, ambulatory subject supports the diagnosis of Diabetes Mellitus. ADA recommended reference range Performed By: #### P TT, CBC, PT, CMP ####[place] [id number] [facility] Potassium [Moles/Vol] 3.4 mmol/L Low 3.5-5.1 [facility] Comment on above: Performed By: #### P TT, CBC, PT, CMP ####[place] [id number] [facility] Protein [Mass/Vol] 5.4 g/dL Low 6.1-7.9 [facility] Comment on above: Performed By: #### P TT, CBC, PT, CMP ####[place] [id number] [facility] Sodium [Moles/Vol] 137 mmol/L Normal 136-146 [facility] Comment on above: Performed By: #### P TT, CBC, PT, CMP ####[facility] [id number] Urea nitrogen [Mass/Vol] 6 mg/dL Low 03-19 [facility] Comment on above: Performed By: #### P TT, CBC, PT, CMP ####[facility] [id number] [place] [address] [place] Dipstick and Microscopicon 1 07-09-2021 Appearance (U) Cloudy Critically abnormal Clear [facility] Comment on above: Order Comment: Name Collection Type:: Clean-Voided Midstream Performed By: #### C BC, MG, CMP, ESR, LIPASE, TSH3 #### [facility] [address] Bacteria,Urine 4+ High None Seen [facility] Comment on above: Order Comment: Name Collection Type:: Clean-Voided Midstream Performed By: #### C BC, MG, CMP, ESR, LIPASE, TSH3 #### [facility] [address] Bilirubin,Urine Negative Normal Negative [facility] Comment on above: Order Comment: Name Collection Type:: Clean-Voided Midstream Performed By: #### C BC, MG, CMP, ESR, LIPASE, TSH3 #### [facility] [address] Calcium Oxalate Crystals,Urine 1+ Normal [facility] Comment on above: Order Comment: Name Collection Type:: Clean-Voided Midstream Performed By: #### C BC, MG, CMP, ESR, LIPASE, TSH3 #### [facility] [address] [place] [address] [place] Color (U) Yellow Normal Yellow [facility] Comment on above: Order Comment: Name Collection Type:: Clean-Voided Midstream Performed By: #### C BC, MG, CMP, ESR, LIPASE, TSH3 #### [facility] [address] [place] [address] [place] Glucose Ql (U) Normal Normal Normal [facility] Comment on above: Order Comment: Name Collection Type:: Clean-Voided Midstream Performed By: #### C BC, MG, CMP, ESR, LIPASE, TSH3 #### [facility] [address] [place] [address] [place] Hyaline Casts,Urine 9-19 High 0-8 [facility] Comment on above: Order Comment: Name Collection Type:: Clean-Voided Midstream Performed By: #### C BC, MG, CMP, ESR, LIPASE, TSH3 #### [address] Ketones Ql (U) Negative Normal Negative [facility] Comment on above: Order Comment: Name Collection Type:: Clean-Voided Midstream Performed By: #### C BC, MG, CMP, ESR, LIPASE, TSH3 #### [address] Leukocyte esterase Test strip Ql (U) 3+ High Negative [facility] Comment on above: Order Comment: Name Collection Type:: Clean-Voided Midstream Performed By: #### C BC, MG, CMP, ESR, LIPASE, TSH3 #### [address] Nitrite,Urine Positive High Negative [facility] Comment on above: Order Comment: Name Collection Type:: Clean-Voided Midstream Performed By: #### C BC, MG, CMP, ESR, LIPASE, TSH3 #### [facility] [address] [place] [address] Occult Blood,Urine Trace High Negative [facility] Comment on above: Order Comment: Name Collection Type:: Clean-Voided Midstream Performed By: #### C BC, MG, CMP, ESR, LIPASE, TSH3 #### [place] [address] [place] Othe Crystals,Urine None Seen Normal [facility] Comment on above: Order Comment: Name Collection Type:: Clean-Voided Midstream Performed By: #### C BC, MG, CMP, ESR, LIPASE, TSH3 #### [place] [address] [place] pH (U) 6.0 [pH] Normal 5.0-9.0 [facility] Comment on above: Order Comment: Name Collection Type:: Clean-Voided Midstream Performed By: #### C BC, MG, CMP, ESR, LIPASE, TSH3 #### [address] Protein,Urine Negative Normal Negative [facility] Comment on above: Order Comment: Name Collection Type:: Clean-Voided Midstream Performed By: #### C BC, MG, CMP, ESR, LIPASE, TSH3 #### [address] RBC LM.HPF (Urine sed) [#/Area] 0 /[HPF] Normal 0-4 [facility] Comment on above: Order Comment: Name Collection Type:: Clean-Voided Midstream Performed By: #### C BC, MG, CMP, ESR, LIPASE, TSH3 #### [address] Specificy [place],Urine 1.014 Normal 1.001-1.03 0 [facility] Comment on above: Order Comment: Name Collection Type:: Clean-Voided Midstream Performed By: #### C BC, MG, CMP, ESR, LIPASE, TSH3 #### [address] Squamous Epithelial Cell,Urine 0-1 Normal 0-2 [facility] Comment on above: Order Comment: Name Collection Type:: Clean-Voided Midstream Performed By: #### C BC, MG, CMP, ESR, LIPASE, TSH3 #### [address] Urobilinogen,Urine Normal Normal Normal [facility] Comment on above: Order Comment: Name Collection Type:: Clean-Voided Midstream Performed By: #### C BC, MG, CMP, ESR, LIPASE, TSH3 #### [address] WBC,Urine 50-100 High 0-4 [facility] Comment on above: Order Comment: Name Collection Type:: Clean-Voided Midstream Performed By: #### C BC, MG, CMP, ESR, LIPASE, TSH3 #### [facility] [address] [place] [id number] [facility] ECG 12 lead ECGon 05-09-2022 ECG 12 lead ECG [facility] [address] [place] [address] [place] [address] Electrocardiograph Report Signed Patient: Raquel Correa MR#: [id number] : 1985 Acct:[id number] Age/Sex: 37 / F ADM Date: 05/09/22 Loc: Room: [address] [place] [address] Type: DIS IN Attending Dr: Jessica Akhtar [...] Inferior leads Confirmed by Westley Greenfield DO ([id number]) on 05/09/2022 2:39:46 PM Referred By: Electronically Signed By:Westley Greenfield DO Transcribed By: MUS Signed By Westley Greenfield DO 2 1439 Normal [facility] Erythrocyte Sedimentation Ra josey 05-09-2022 ESR (Bld) [Velocity] 2 mm/h Normal 0-19 [facility] Comment on above: Result Comment: PERF ORMED BY: [place] [id number] PATHOLOGIST [employer]TER RADHA GARCIA M.D. Performed By: #### C BC, MG, CMP, ESR, LIPASE, TSH3 #### [place] [id number] [facility] Erythrocyte sedimentation ra te by Photometric methodOrdered By: Truman Hu on 05-09-2022 ESR Photometric method (Bld) [Velocity] 2 mm/hr 0-19 [facility] Globulin Calc (S) [Mass/Vol] Ordered By: Truman Hu on 05-09-2022 Globulin (S) [Mass/Vol] 2.4 g/dL [facility] HCG ( test) IA.rapi d Ql (U)Ordered By: Truman Hu on 05-09-2022 HCG ( test) Ql (U) Negative [facility] HCG,Urineon 05-09-2022 Beta HCG ( test) Ql (U) Negative Normal [facility] Comment on above: Order Comment: Name Collection Type:: Clean-Voided Midstream Result Comment: PERF ORMED BY: [facility] [address] [place] [address] PATHOLOGIST [employer] RADHA GARCIA M.D. Performed By: #### C BC, MG, CMP, ESR, LIPASE, TSH3 #### [facility] [address] Ketones Auto test strip (U) [Mass/Vol]Ordered By: Truman Hu on 05-09-2022 Ketones (U) [Mass/Vol] Negative Negative [facility] Laboratory - CoagulationOrde red By: Truman Hu on 05-09-2022 PT Coag (PPP) [Time] 11.0 s 9.0-12.9 [facility] Laboratory - UrinalysisOrder ed By: Truman Hu on 05-09-2022 Hyaline casts LM Ql (Urine sed) 9-19 [LPF] 0-8 [facility] LeukoReduced RBCon 2 LeukoReduced RBC TRANSFUSED 05/09/22 2103 Normal [facility] Nitrite Test strip Ql (U)Ord ered By: Truman Hu on 05-09-2022 Nitrite Ql (U) Positive Negative [facility] Partial Thromboplastin Timeo n 05-09-2022 aPTT Coag (Bld) [Time] s Off scale low 25.1-36.5 [facility] Comment on above: Result Comment: Crit ical value result called and read back at 1522 on 05/09/22 PERFORMED BY: [facility] [address] [place] [id number] PATHOLOGIST [employer] RADHA GARCIA M.D. Performed By: #### P TT, CBC, PT, CMP ####[facility] [id number] [place] [address] [facility] Platelet poor plasma interna tional normalized ratio (INR) by coagulation assay (relatOrdered By: Truman Hu on 05-09-2022 INR Coag (PPP) [Relative time] 1.0 {INR} [facility] Comment on above: INR Therapeutic Rang e [...] on 05-09-2022 Protein (U) [Mass/Vol] Negative Negative [facility] Protein [Mass/volume] in Ser um or PlasmaOrdered By: Truman Hu on 05-09-2022 Protein [Mass/Vol] 5.4 g/dL 6.1-7.9 [facility] Prothrombin Time INRon 05-09 INR Coag (PPP) [Relative time] 1.0 {INR} Normal [facility] Comment on above: Result Comment: INR Therapeutic [...] By: #### P TT, CBC, PT, CMP ####[facility] [id number] [place] [address] [facility] PT Coag (PPP) [Time] 11.0 s Normal 9.0-12.9 [facility] Comment on above: Performed By: #### P TT, CBC, PT, CMP ####[facility] [id number] [place] [address] [facility] Serum or plasma alanine carlos otransferase measurement without P-5'-P (enzymatic activiOrdered By: Truman Hu on 05-09-2022 ALT No additional P-5'-P [Catalytic activity/Vol] 22 U/L 10-60 [facility] Serum or plasma albumin/glob ulin mass ratioOrdered By: Truman Hu on 05-09-2022 Albumin/Globulin [Mass ratio] 1.3 {ratio} [facility] Serum or plasma alkaline belkys sphatase measurement (enzymatic activity/volume)Ordered By: Truman Hu on 05-09-2022 ALP [Catalytic activity/Vol] 55 U/L 32-92 [facility] Serum or plasma aspartate am inotransferase measurement (enzymatic activity/volume)Ordered By: Truman Hu on 05-09-2022 AST [Catalytic activity/Vol] 22 U/L 10-42 [facility] Serum or plasma total biliru bin measurement (mass/volume)Ordered By: Truman Hu on 05-09-2022 Bilirubin [Mass/Vol] 0.5 mg/dL 0.3-1.2 [facility] Specific gravity Auto test s trip (U) [Rel density]Ordered By: Truman Hu on 05-09-2022 Specific gravity (U) [Rel density] 1.014 1.001-1.03 0 [facility] Squamous epithelial cells de tection in urine sediment by light microscopyOrdered By: Truman Hu on 05-09-2022 Epithelial cells.squamous LM Ql (Urine sed) 0-1 [HPF] 0-2 [facility] Stool Occult Blood (Guaiac)o n 05-09-2022 Stool Occult Blood (Guaiac) Occult Blood Positive for Occult Blood by Guaiac Methodology -- Reference range = Negative PERFORMED BY: [facility] [address] [place] [address] PATHOLOGIST [employer] RADHA GARCIA M.D. [facility] Comment on above: Performed By: #### C BC, MG, CMP, ESR, LIPASE, TSH3 #### [facility] [address] [place] [id number] [facility] Type and Screenon 05-09-2022 ABO and Rh group Nom (Bld) Blood group O Rh(D) positive [facility] Comment on above: Order Comment: Trans fuse now? Y Number of units to transfuse now? 2 Result Comment: PERF ORMED BY: [facility] [address] [place] [address] PATHOLOGIST [employer] RADHA GARCIA M.D. Urine Cultureon 05-09-2022 Bacteria identified Cx Nom (U) Results called at 0717 on 05/12/22 ORGANISM: Escherichia coli (ESBL) (O:ESCCOLESBL) [place] Count >100,000 Aerobic DIVYA Charge (NUC86) SUSCEPTIBILITY [...] RESISTANT TO ALL B-LACTAM DRUGS. PERFORMED BY: [facility] [address] [place] [address] PATHOLOGIST [employer]RAFTER RADHA GARCIA M.D. Normal [facility] Comment on above: Performed By: #### C BC, MG, CMP, ESR, LIPASE, TSH3 #### [facility] [address] Urine bacteria detection by automated methodOrdered By: Truman Hu on 05-09-2022 Bacteria Auto Ql (U) 4+ None Seen [facility] Urine clarity by refractomet ry automatedOrdered By: Truman Hu on 05-09-2022 Clarity Refractometry automated (U) Cloudy Clear [facility] Urine culture routineOrdered By: Truman Hu on 05-09-2022 Bacteria identified Cx Nom (U) Escherichia coli (ESBL) [facility] Urine glucose measurement by automated test strip (mass/volume)Ordered By: Truman Hu on 05-09-2022 Glucose Auto test strip (U) [Mass/Vol] Normal mg/dL Normal [facility] Urine hemoglobin detection b y automated test stripOrdered By: Truman Hu on 05-09-2022 Hemoglobin Auto test strip Ql (U) Trace Negative [facility] Urine leukocyte esterase det ection by automated test stripOrdered By: Truman Hu on 05-09-2022 Leukocyte esterase Auto test strip Ql (U) 3+ Negative [facility] Urine sediment crystal ident ification by light microscopyOrdered By: Truman Hu on 05-09-2022 Crystals LM Nom (Urine sed) None seen [HPF] [facility] Urobilinogen Auto test strip (U) [Mass/Vol]Ordered By: Truman Hu on 05-09-2022 Urobilinogen (U) [Mass/Vol] Normal mg/dL Normal [facility] pH Auto test strip (U)Ordere d By: Truman Hu on 05-09-2022 pH (U) 6.0 [pH] 5.0-9.0 [facility] CBC AUTO DIFFon 04-16-2022 BASO # 0.0 103/ul Normal 0.0-0.1 [facility] Comment on above: Performed By: #### P T, PTT #### [facility] [address] [place] [address] Dr. Tori Thomas Basophils/100 WBC (Bld) 0.7 % Normal 0.2-2.0 [facility] Comment on above: Performed By: #### P T, PTT #### [facility] [address] [place] [address] Dr. Tori Thomas EO # 0.1 103/ul Normal 0.0-0.7 [facility] Comment on above: Performed By: #### P T, PTT #### [facility] [address] [place] [address] Dr. Tori Thomas Eosinophils/100 WBC (Bld) 0.8 % Critically low 0.9-7.0 [facility] Comment on above: Performed By: #### P T, PTT #### [facility] [address] [place] [address] Dr. Tori Thomas Erythrocyte distribution width (RBC) [Ratio] 14.9 % Normal 11.0-15.0 [facility] Comment on above: Performed By: #### P T, PTT #### [facility] [address] [place] [address] Dr. Tori Thomas Hematocrit (Bld) [Volume fraction] 29.8 % Critically low 36.0-48.0 [facility] Comment on above: Performed By: #### P T, PTT #### [facility] [address] [place] [address] Dr. Tori Thomas Hemoglobin (Bld) [Mass/Vol] 8.8 g/dL Critically low 12.0-16.0 [facility] Comment on above: Performed By: #### P T, PTT #### [facility] [address] [place] [address] Dr. Tori Thomas IG # 0.01 10e3/ul Normal 0.00-0.03 [facility] Comment on above: Performed By: #### P T, PTT #### [facility] [address] [place] [address] Dr. Tori Thomas IG % 0.2 % Normal 0.0-0.5 [facility] Comment on above: Performed By: #### P T, PTT #### [facility] [address] [place] [address] Dr. Tori Thomas LYMPH # 1.3 103/ul Normal 1.2-3.8 [facility] Comment on above: Performed By: #### P T, PTT #### [facility] [address] [place] [address] Dr. Tori Thomas Lymphocytes/100 WBC (Bld) 21.1 % Normal 20.5-60.0 [facility] Comment on above: Performed By: #### P T, PTT #### [facility] [address] [place] [address] Dr. Tori Thomas MANUAL DIFF REQ NO Normal [facility] Comment on above: Performed By: #### P T, PTT #### [facility] [address] [place] [address] Dr. Tori Thomas MCH (RBC) [Entitic mass] 24.9 pg Critically low 26.7-34.0 [facility] Comment on above: Performed By: #### P T, PTT #### [facility] [address] [place] [address] Dr. Tori Thomas MCHC (RBC) [Mass/Vol] 29.5 g/dL Critically low 29.9-35.2 [facility] Comment on above: Performed By: #### P T, PTT #### [facility] [address] [place] [address] Dr. Tori Thomas MCV (RBC) [Entitic vol] 84.4 fL Normal 81.0-99.0 [facility] Comment on above: Performed By: #### P T, PTT #### [facility] [address] [place] [address] Dr. Tori Thomas MONO # 0.4 103/ul Normal 0.3-0.8 [facility] Comment on above: Performed By: #### P T, PTT #### [facility] [address] [place] [address] Dr. Tori Thomas Monocytes/100 WBC (Bld) 6.6 % Normal 1.7-12.0 [facility] Comment on above: Performed By: #### P T, PTT #### [facility] [address] [place] [address] Dr. Tori Thomas NEUT # 4.2 103/ul Normal 1.4-6.5 [facility] Comment on above: Performed By: #### P T, PTT #### [facility] [address] [place] [address] Dr. Tori Thomas Neutrophils/100 WBC (Bld) 70.6 % Normal 43.0-75.0 [facility] Comment on above: Performed By: #### P T, PTT #### [facility] [address] [place] [address] Dr. Tori Thomas Platelet mean volume (Bld) [Entitic vol] 9.0 fL Critically low 9.5-13.5 [facility] Comment on above: Performed By: #### P T, PTT #### [facility] [address] [place] [address] Dr. Tori Thomas PLT 337 103/ul Normal 150-450 [facility] Comment on above: Performed By: #### P T, PTT #### [facility] [address] [place] [address] Dr. Tori Thomas RBC 3.53 106/ul Critically low 4.20-5.40 [facility] Comment on above: Performed By: #### P T, PTT #### [facility] [address] [place] [address] Dr. Tori Thomas WBC 5.9 103/ul Normal 4.0-11.0 [facility] Comment on above: Performed By: #### P T, PTT #### [facility] [address] [place] [address] Dr. Tori Thomas FERRITINon 04-16-2022 Ferritin [Mass/Vol] 23.0 ng/mL Normal 6.2-137.0 [facility] Comment on above: Performed By: #### U AMIC #### [facility] [address] [place] [address] Dr. Tori Walter 04-16-2022 Iron [Mass/Vol] 17.0 ug/dL Critically low 50.0-170.0 [facility] Comment on above: Performed By: #### U AMIC #### [facility] [address] [place] [address] Dr. Tori Thomas PROF 14(COMP METB)on 022 Albumin [Mass/Vol] 3.6 g/dL Normal 3.4-5.0 [facility] [facility] Comment on above: Performed By: #### C MP #### [facility] [address] [place] [address] Dr. Tori Thomas Albumin/Globulin [Mass ratio] 1.0 {ratio} Normal [facility] Comment on above: Performed By: #### C MP #### [facility] [address] [place] [address] Dr. Tori Thomas ALP [Catalytic activity/Vol] 72 U/L Normal 46-116 [facility] Comment on above: Performed By: #### C MP #### [facility] [address] [place] [address] Dr. Tori Thomas ALT [Catalytic activity/Vol] 19 U/L Normal 14-59 [facility] Comment on above: Performed By: #### C MP #### [facility] [address] [place] [address] Dr. Tori Tohmas Anion gap [Moles/Vol] 14.5 mmol/L Normal [facility] Comment on above: Performed By: #### C MP #### [facility] [address] [place] [address] Dr. Tori Thomas AST [Catalytic activity/Vol] 15 U/L Normal 15-37 [facility] Comment on above: Performed By: #### C MP #### [facility] [address] [place] [address] Dr. Tori Thomas Bilirubin [Mass/Vol] 0.3 mg/dL Normal 0.2-1.0 [facility] Comment on above: Performed By: #### C MP #### [facility] [address] [place] [address] Dr. Tori Thomas Calcium [Mass/Vol] 9.0 mg/dL Normal 8.5-10.1 [facility] Comment on above: Performed By: #### C MP #### [facility] [address] [place] [address] Dr. Tori Thomas Chloride [Moles/Vol] 104 mmol/L Normal 98-107 [facility] Comment on above: Performed By: #### C MP #### [facility] [address] [place] [address] Dr. Tori Thomas CO2 [Moles/Vol] 24.2 mmol/L Normal 21.0-32.0 [facility] Comment on above: Performed By: #### C MP #### [facility] [address] [place] [address] Dr. Tori Thomas Creatinine [Mass/Vol] 0.77 mg/dL Normal 0.55-1.02 [facility] Comment on above: Performed By: #### C MP #### [facility] [address] [place] [address] Dr. Tori Thomas EGFR-AF MAURITANIAN >60 Normal >=60 [facility] Comment on above: Performed By: #### C MP #### [facility] [address] [place] [address] Dr. Tori Thomas EGFR-NON AF MAURITANIAN >60 Normal >=60 [facility] Comment on above: Performed By: #### C MP #### [facility] [address] [place] [address] Dr. Tori Thomas Globulin (S) [Mass/Vol] 3.5 g/dL Normal [facility] Comment on above: Performed By: #### C MP #### [facility] [address] [place] [address] Dr. Tori Thomas Glucose [Mass/Vol] 112 mg/dL Critically high 74-106 [facility] [place] Comment on above: Performed By: #### C MP #### [facility] [address] [place] [address] Dr. Tori Thomas Potassium [Moles/Vol] 3.7 mmol/L Normal 3.5-5.1 [facility] Comment on above: Performed By: #### C MP #### [facility] [address] [place], [place] [address] Dr. Tori Thomas Protein [Mass/Vol] 7.1 g/dL Normal 6.4-8.2 [facility] Comment on above: Performed By: #### C MP #### [facility] [address] [place] [address] [address] Tori Thomas Sodium [Moles/Vol] 139 mmol/L Normal 136-145 [facility] Comment on above: Performed By: #### C MP #### [facility] [address] [place] [address] [address] Tori Thomas Urea nitrogen [Mass/Vol] 7.0 mg/dL Normal 7.0-18.0 [facility] Comment on above: Performed By: #### C MP #### [facility] [address] [place] [address] [address] Tori Thomas Urea nitrogen/Creatinine [Mass ratio] 9.1 mg/mg Normal [facility] Comment on above: Performed By: #### C MP #### [facility] [address] [place] [address] [address] Tori Thomas Basic Metabolic Panelon 10-0 Anion gap [Moles/Vol] 10.3 mmol/L Normal 6.0-15.[address] [facility] Comment on above: Performed By: #### C BC, MG, CMP, ESR, LIPASE, TSH3 #### [facility] [address] [place] [address] [place] Calcium [Mass/Vol] 8.9 mg/dL Normal 8.2-10.2 [facility] Comment on above: Performed By: #### C BC, MG, CMP, ESR, LIPASE, TSH3 #### [facility] [address] [place] [address] [place] Chloride [Moles/Vol] 107 mmol/L Normal 95-114 [facility] Comment on above: Performed By: #### C BC, MG, CMP, ESR, LIPASE, TSH3 #### [facility] [address] [place] [address] CO2 [Moles/Vol] 23.8 mmol/L Normal 22.0-30.0 [facility] Comment on above: Performed By: #### C BC, MG, CMP, ESR, LIPASE, TSH3 #### [address] Creatinine [Mass/Vol] 0.71 mg/dL Normal 0.44-1.03 [facility] Comment on above: Performed By: #### C BC, MG, CMP, ESR, LIPASE, TSH3 #### [address] Creatinine Clr Calc Pharmacy 87.47 [facility] Comment on above: Result Comment: PERF ORMED BY: [place] [id number] PATHOLOGIST [employer] RADHA GARCIA M.D. Performed By: #### C BC, MG, CMP, ESR, LIPASE, TSH3 #### [address] Estimated GFR ( Letty > 60 [facility] Comment on above: Result Comment: GFR estimated reference range: According to KDOQI guidelines, <60 ml/min/1.73m2 is sufficient to diagnose a patient with chronic kidney disease. Performed By: #### C BC, MG, CMP, ESR, LIPASE, TSH3 #### [address] Estimated GFR (Non- Am > 60 [facility] Comment on above: Performed By: #### C BC, MG, CMP, ESR, LIPASE, TSH3 #### [address] Glucose [Mass/Vol] 91 mg/dL Normal 70-100 [facility] Comment on above: Result Comment: [place] Glucose Reference Range is dependent on time and content of last meal. Glucose of more than 200 mg/dL in a nonstressed, ambulatory subject supports the diagnosis of Diabetes Mellitus. ADA recommended reference range Performed By: #### C BC, MG, CMP, ESR, LIPASE, TSH3 #### [facility] [address] Potassium [Moles/Vol] 4.1 mmol/L Normal 3.5-5.1 [facility] Comment on above: Performed By: #### C BC, MG, CMP, ESR, LIPASE, TSH3 #### [facility] [address] Sodium [Moles/Vol] 137 mmol/L Normal 136-146 [facility] Comment on above: Performed By: #### C BC, MG, CMP, ESR, LIPASE, TSH3 #### [facility] [address] Urea nitrogen [Mass/Vol] 3 mg/dL Low 9-23 [facility] Comment on above: Performed By: #### C BC, MG, CMP, ESR, LIPASE, TSH3 #### [facility] [address] Basophils Auto (Bld) [#/Vol] Ordered By: Jessica Akhtar on 04-02-2022 Basophils (Bld) [#/Vol] 0.0 10*3/uL 0.0-0.2 [facility] Basophils/100 WBC Auto (Bld) Ordered By: Jessica Akhtar on 04-02-2022 Basophils/100 WBC (Bld) 0.3 % . [facility] Blood hemoglobin measurement (mass/volume)Ordered By: Jessica Akhtar on 04-02-2022 Hemoglobin (Bld) [Mass/Vol] 8.8 g/dL 11.8-15.4 [facility] Blood leukocytes automated c ount (number/volume)Ordered By: Jessica Akhtar on 04-02-2022 WBC (Bld) [#/Vol] 7.6 10*3/uL 4.5-11.0 [facility] Complete Blood Count Auto Di ffon 04-02-2022 Basophils (Bld) [#/Vol] 0.0 10*3/uL Normal 0.0-0.2 [facility] Comment on above: Result Comment: PERF ORMED BY: [facility] [address] [place] [address] PATHOLOGIST [employer] RADHA GARCIA M.D. Performed By: #### C BC, MG, CMP, ESR, LIPASE, TSH3 #### [address] Basophils/100 WBC (Bld) 0.3 % Normal . [facility] Comment on above: Performed By: #### C BC, MG, CMP, ESR, LIPASE, TSH3 #### [address] Eosinophils (Bld) [#/Vol] 0.1 10*3/uL Normal 0.0-0.45 [facility] Comment on above: Performed By: #### C BC, MG, CMP, ESR, LIPASE, TSH3 #### [address] Eosinophils/100 WBC (Bld) 1.3 % Normal . [facility] Comment on above: Performed By: #### C BC, MG, CMP, ESR, LIPASE, TSH3 #### [address] Erythrocyte distribution width (RBC) [Ratio] 15.0 % Normal 11.9-15.3 [facility] Comment on above: Performed By: #### C BC, MG, CMP, ESR, LIPASE, TSH3 #### [address] Hematocrit (Bld) [Volume fraction] 26.7 % Low 34.0-46.4 [facility] Comment on above: Performed By: #### C BC, MG, CMP, ESR, LIPASE, TSH3 #### [address] Hemoglobin (Bld) [Mass/Vol] 8.8 g/dL Low 11.8-15.4 [facility] Comment on above: Performed By: #### C BC, MG, CMP, ESR, LIPASE, TSH3 #### [address] Lymphocytes (Bld) [#/Vol] 1.8 10*3/uL Normal 1.00-4.8 [facility] Comment on above: Performed By: #### C BC, MG, CMP, ESR, LIPASE, TSH3 #### [address] Lymphocytes/100 WBC (Bld) 23.8 % Normal . [facility] Comment on above: Performed By: #### C BC, MG, CMP, ESR, LIPASE, TSH3 #### [address] MCH (RBC) [Entitic mass] 28.5 pg Normal 24.7-34.3 [facility] Comment on above: Performed By: #### C BC, MG, CMP, ESR, LIPASE, TSH3 #### [address] MCV (RBC) [Entitic vol] 86.9 fL Normal 80-100 [facility] Comment on above: Performed By: #### C BC, MG, CMP, ESR, LIPASE, TSH3 #### [address] Mean Corpuscular HGB Conc 32.8 g/dL Normal 32.0-35.0 [facility] Comment on above: Performed By: #### C BC, MG, CMP, ESR, LIPASE, TSH3 #### [address] Monocytes (Bld) [#/Vol] 0.5 10*3/uL Normal 0.0-0.8 [facility] Comment on above: Performed By: #### C BC, MG, CMP, ESR, LIPASE, TSH3 #### [address] Monocytes/100 WBC (Bld) 6.0 % Normal . [facility] Comment on above: Performed By: #### C BC, MG, CMP, ESR, LIPASE, TSH3 #### [address] Neutrophils (Bld) [#/Vol] 5.2 10*3/uL Normal 1.8-7.7 [facility] Comment on above: Performed By: #### C BC, MG, CMP, ESR, LIPASE, TSH3 #### [address] Neutrophils/100 WBC (Bld) 68.6 % Normal . [facility] Comment on above: Performed By: #### C BC, MG, CMP, ESR, LIPASE, TSH3 #### [address] Nucleated RBC/100 WBC (Bld) [Ratio] 0.1 % Normal 0-0.5 [facility] Comment on above: Performed By: #### C BC, MG, CMP, ESR, LIPASE, TSH3 #### [address] Platelet mean volume (Bld) [Entitic vol] 7.2 fL Normal 6.3-10.7 [facility] Comment on above: Performed By: #### C BC, MG, CMP, ESR, LIPASE, TSH3 #### [address] Platelets (Bld) [#/Vol] 432 10*3/uL Normal 150-450 [facility] Comment on above: Performed By: #### C BC, MG, CMP, ESR, LIPASE, TSH3 #### [address] RBC (Bld) [#/Vol] 3.08 10*6/uL Low 3.60-5.00 [facility] Comment on above: Performed By: #### C BC, MG, CMP, ESR, LIPASE, TSH3 #### [address] WBC (Bld) [#/Vol] 7.6 10*3/uL Normal 4.5-11.0 [facility] Comment on above: Performed By: #### C BC, MG, CMP, ESR, LIPASE, TSH3 #### [address] Creatinine and Glomerular fi ltration rate.predicted panel (S/P/Bld)Ordered By: Jessica Akhtar on 04-02-2022 Creatinine [Mass/Vol] 0.71 mg/dL 0.44-1.03 [facility] Eosinophils Auto (Bld) [#/Vo l]Ordered By: Jessica Akhtar on 04-02-2022 Eosinophils (Bld) [#/Vol] 0.1 10*3/uL 0.0-0.45 [facility] Eosinophils/100 WBC Auto (Bl d)Ordered By: Jessica Akhtar on 04-02-2022 Eosinophils/100 WBC (Bld) 1.3 % . [facility] Erythrocyte distribution wid th Auto (RBC) [Ratio]Ordered By: Jessica Akhtar on 04-02-2022 Erythrocyte distribution width (RBC) [Ratio] 15.0 % 11.9-15.3 [facility] Estimated glomerular filtrat ion rate (GFR) non- AmericanOrdered By: Jessica Akhtar on 04-02-2022 GFR/1.73 sq M.predicted among non-blacks MDRD (S/P/Bld) [Vol rate/Area] > 60 mL/Min [facility] Hematocrit Auto (Bld) [Volum e fraction]Ordered By: Jessica Akhtar on 04-02-2022 Hematocrit (Bld) [Volume fraction] 26.7 % 34.0-46.4 [facility] Laboratory - Hematology and Cell countsOrdered By: Jessica Akhtar on 04-02-2022 Nucleated RBC/100 WBC (Bld) [Ratio] 0.1 % 0-0.5 [facility] Lymphocytes Auto (Bld) [#/Vo l]Ordered By: Jessica Akhtar on 04-02-2022 Lymphocytes (Bld) [#/Vol] 1.8 10*3/uL 1.00-4.8 [facility] Lymphocytes/100 WBC Auto (Bl d)Ordered By: Jessica Akhtar on 04-02-2022 Lymphocytes/100 WBC (Bld) 23.8 % . [facility] MCH Auto (RBC) [Entitic mass ]Ordered By: Jessica Akhtar on 04-02-2022 MCH (RBC) [Entitic mass] 28.5 pg 24.7-34.3 [facility] MCHC Auto (RBC) [Mass/Vol]Or dered By: Jessica Akhtar on 04-02-2022 MCHC (RBC) [Mass/Vol] 32.8 g/dL 32.0-35.0 [facility] MCV Auto (RBC) [Entitic vol] Ordered By: Jessica Akhtar on 04-02-2022 MCV (RBC) [Entitic vol] 86.9 fL 80-100 [facility] Monocytes Auto (Bld) [#/Vol] Ordered By: Jessica Akhtar on 04-02-2022 Monocytes (Bld) [#/Vol] 0.5 10*3/uL 0.0-0.8 [facility] Monocytes/100 WBC Auto (Bld) Ordered By: Jessica Akhtar on 04-02-2022 Monocytes/100 WBC (Bld) 6.0 % . [facility] Neutrophils Auto (Bld) [#/Vo l]Ordered By: Jessica Akhtar on 04-02-2022 Neutrophils (Bld) [#/Vol] 5.2 10*3/uL 1.8-7.7 [facility] Neutrophils/100 WBC Auto (Bl d)Ordered By: Jessica Akhtar on 04-02-2022 Neutrophils/100 WBC (Bld) 68.6 % . [facility] No Panel InformationOrdered By: Jessica Akhtar on 04-02-2022 Estimated GFR () > 60 mL/Min [facility] Comment on above: GFR estimated refere nce range: According to KDOQI guidelines, <60 ml/min/1.73m2 is sufficient to diagnose a patient with chronic kidney disease. Pharmacy Creatinine Clearance (Chem 87.47 [facility] Platelet mean volume Auto (B ld) [Entitic vol]Ordered By: Jessica Akhtar on 04-02-2022 Platelet mean volume (Bld) [Entitic vol] 7.2 fL 6.3-10.7 [facility] Platelets Auto (Bld) [#/Vol] Ordered By: Jessica Akhtar on 04-02-2022 Platelets (Bld) [#/Vol] 432 10*3/uL 150-450 [facility] RBC Auto (Bld) [#/Vol]Ordere d By: Jessica Akhtar on 04-02-2022 RBC (Bld) [#/Vol] 3.08 10*6/uL 3.60-5.00 [facility] Serum or plasma anion gap de terminationOrdered By: Jessica Akhtar on 04-02-2022 Anion gap [Moles/Vol] 10.3 mmol/L 6.0-15.[address] [facility] Serum or plasma calcium mariana urement (mass/volume)Ordered By: Jessica Akhtar on 04-02-2022 Calcium [Mass/Vol] 8.9 mg/dL 8.2-10.2 [facility] Serum or plasma chloride jaqui surement (moles/volume)Ordered By: Jessica Akhtar on 04-02-2022 Chloride [Moles/Vol] 107 mmol/L 95-114 [facility] Serum or plasma glucose mariana urement (mass/volume)Ordered By: Jessica Akhtar on 04-02-2022 Glucose [Mass/Vol] 91 mg/dL 70-100 [facility] Comment on above: ADA recommended refe rence rangeRandom Glucose Reference Range is dependent on time and content of last meal. Glucose of more than 200 mg/dL in a nonstressed, ambulatory subject supports the diagnosis of Diabetes Mellitus. Serum or plasma potassium me asurement (moles/volume)Ordered By: Jessica Akhtar on 04-02-2022 Potassium [Moles/Vol] 4.1 mmol/L 3.5-5.1 [facility] Serum or plasma sodium measu rement (moles/volume)Ordered By: Jessica Akhtar on 04-02-2022 Sodium [Moles/Vol] 137 mmol/L 136-146 [facility] Serum or plasma total carbon dioxide measurement (moles/volume)Ordered By: Jessica Akhtar on 04-02-2022 CO2 [Moles/Vol] 23.8 mmol/L 22.0-30.0 [facility] Serum or plasma urea nitroge n measurement (mass/volume)Ordered By: Jessica Akhtar on 04-02-2022 Urea nitrogen [Mass/Vol] 3 mg/dL 9-23 [facility] Urine culture routineOrdered By: Jessica Akhtar on 04-02-2022 Bacteria identified Cx Nom (U) Escherichia coli (ESBL) [facility] Albumin [Mass/volume] in Ser um or PlasmaOrdered By: Jessica Akhtar on 04-01-2022 Albumin [Mass/Vol] 2.8 g/dL 3.2-5.5 [facility] Complete Blood Count Auto Di ffon 04-01-2022 Basophils (Bld) [#/Vol] 0.0 10*3/uL Normal 0.0-0.2 [facility] Comment on above: Result Comment: PERF ORMED BY: [place] [id number] PATHOLOGIST [employer] RADHA GARCIA M.D. Performed By: #### C BC, MG, CMP, ESR, LIPASE, TSH3 #### [facility] [address] Basophils/100 WBC (Bld) 0.3 % Normal . [facility] Comment on above: Performed By: #### C BC, MG, CMP, ESR, LIPASE, TSH3 #### [facility] [address] Eosinophils (Bld) [#/Vol] 0.1 10*3/uL Normal 0.0-0.45 [facility] Comment on above: Performed By: #### C BC, MG, CMP, ESR, LIPASE, TSH3 #### [facility] [address] [place] [address] [place] Eosinophils/100 WBC (Bld) 1.3 % Normal . [facility] Comment on above: Performed By: #### C BC, MG, CMP, ESR, LIPASE, TSH3 #### [facility] [address] [place] [address] [place] Erythrocyte distribution width (RBC) [Ratio] 15.1 % Normal 11.9-15.3 [facility] Comment on above: Performed By: #### C BC, MG, CMP, ESR, LIPASE, TSH3 #### [address] Hematocrit (Bld) [Volume fraction] 23.6 % Low 34.0-46.4 [facility] Comment on above: Performed By: #### C BC, MG, CMP, ESR, LIPASE, TSH3 #### [address] Hemoglobin (Bld) [Mass/Vol] 7.8 g/dL Low 11.8-15.4 [facility] Comment on above: Performed By: #### C BC, MG, CMP, ESR, LIPASE, TSH3 #### [address] Lymphocytes (Bld) [#/Vol] 2.2 10*3/uL Normal 1.00-4.8 [facility] Comment on above: Performed By: #### C BC, MG, CMP, ESR, LIPASE, TSH3 #### [address] Lymphocytes/100 WBC (Bld) 32.6 % Normal . [facility] Comment on above: Performed By: #### C BC, MG, CMP, ESR, LIPASE, TSH3 #### [address] MCH (RBC) [Entitic mass] 29.0 pg Normal 24.7-34.3 [facility] Comment on above: Performed By: #### C BC, MG, CMP, ESR, LIPASE, TSH3 #### [address] MCV (RBC) [Entitic vol] 87.7 fL Normal 80-100 [facility] Comment on above: Performed By: #### C BC, MG, CMP, ESR, LIPASE, TSH3 #### [address] Mean Corpuscular HGB Conc 33.1 g/dL Normal 32.0-35.0 [facility] Comment on above: Performed By: #### C BC, MG, CMP, ESR, LIPASE, TSH3 #### [address] Monocytes (Bld) [#/Vol] 0.4 10*3/uL Normal 0.0-0.8 [facility] Comment on above: Performed By: #### C BC, MG, CMP, ESR, LIPASE, TSH3 #### [address] Monocytes/100 WBC (Bld) 6.1 % Normal . [facility] Comment on above: Performed By: #### C BC, MG, CMP, ESR, LIPASE, TSH3 #### [address] Neutrophils (Bld) [#/Vol] 4.0 10*3/uL Normal 1.8-7.7 [facility] Comment on above: Performed By: #### C BC, MG, CMP, ESR, LIPASE, TSH3 #### [address] Neutrophils/100 WBC (Bld) 59.7 % Normal . [facility] Comment on above: Performed By: #### C BC, MG, CMP, ESR, LIPASE, TSH3 #### [address] Nucleated RBC/100 WBC (Bld) [Ratio] 0.1 % Normal 0-0.5 [facility] Comment on above: Performed By: #### C BC, MG, CMP, ESR, LIPASE, TSH3 #### [address] Platelet mean volume (Bld) [Entitic vol] 7.4 fL Normal 6.3-10.7 [facility] Comment on above: Performed By: #### C BC, MG, CMP, ESR, LIPASE, TSH3 #### [address] Platelets (Bld) [#/Vol] 403 10*3/uL Normal 150-450 [facility] Comment on above: Performed By: #### C BC, MG, CMP, ESR, LIPASE, TSH3 #### [address] RBC (Bld) [#/Vol] 2.69 10*6/uL Low 3.60-5.00 [facility] Comment on above: Performed By: #### C BC, MG, CMP, ESR, LIPASE, TSH3 #### [address] WBC (Bld) [#/Vol] 6.6 10*3/uL Normal 4.5-11.0 [facility] Comment on above: Performed By: #### C BC, MG, CMP, ESR, LIPASE, TSH3 #### [address] Comprehensive Metabolic Pane eagle 04-01-2022 Albumin [Mass/Vol] 2.8 g/dL Low 3.2-5.5 [facility] Comment on above: Performed By: #### C BC, MG, CMP, ESR, LIPASE, TSH3 #### [address] Albumin/Globulin [Mass ratio] 1.4 {ratio} Normal [facility] Comment on above: Performed By: #### C BC, MG, CMP, ESR, LIPASE, TSH3 #### [address] ALP [Catalytic activity/Vol] 47 U/L Normal 32-92 [facility] Comment on above: Performed By: #### C BC, MG, CMP, ESR, LIPASE, TSH3 #### [address] ALT [Catalytic activity/Vol] 18 U/L Normal 10-60 [facility] Comment on above: Performed By: #### C BC, MG, CMP, ESR, LIPASE, TSH3 #### [address] Anion gap [Moles/Vol] 9.4 mmol/L Normal 6.0-15.0 [facility] Comment on above: Performed By: #### C BC, MG, CMP, ESR, LIPASE, TSH3 #### [facility] [address] AST [Catalytic activity/Vol] 18 U/L Normal 10-42 [facility] Comment on above: Performed By: #### C BC, MG, CMP, ESR, LIPASE, TSH3 #### [facility] [address] Bilirubin [Mass/Vol] 0.4 mg/dL Normal 0.3-1.2 [facility] Comment on above: Performed By: #### C BC, MG, CMP, ESR, LIPASE, TSH3 #### [facility] [address] Calcium [Mass/Vol] 8.3 mg/dL Normal 8.2-10.2 [facility] Comment on above: Performed By: #### C BC, MG, CMP, ESR, LIPASE, TSH3 #### [address] Chloride [Moles/Vol] 108 mmol/L Normal 95-114 [facility] Comment on above: Performed By: #### C BC, MG, CMP, ESR, LIPASE, TSH3 #### [address] CO2 [Moles/Vol] 24.6 mmol/L Normal 22.0-30.0 [facility] Comment on above: Performed By: #### C BC, MG, CMP, ESR, LIPASE, TSH3 #### [address] Creatinine [Mass/Vol] 0.74 mg/dL Normal 0.44-1.03 [facility] Comment on above: Performed By: #### C BC, MG, CMP, ESR, LIPASE, TSH3 #### [address] Creatinine Clr Calc Pharmacy 83.92 Normal [facility] Comment on above: Result Comment: PERF ORMED BY: [facility] [address] [place] [address] PATHOLOGIST [employer] RADHA GARCIA M.D. Performed By: #### C BC, MG, CMP, ESR, LIPASE, TSH3 #### [facility] [address] Estimated GFR ( Letty > 60 [facility] Comment on above: Result Comment: GFR estimated reference range: According to KDOQI guidelines, <60 ml/min/1.73m2 is sufficient to diagnose a patient with chronic kidney disease. Performed By: #### C BC, MG, CMP, ESR, LIPASE, TSH3 #### [facility] [address] Estimated GFR (Non- Am > 60 [facility] Comment on above: Performed By: #### C BC, MG, CMP, ESR, LIPASE, TSH3 #### [address] Globulin (S) [Mass/Vol] 2.0 g/dL [facility] Comment on above: Performed By: #### C BC, MG, CMP, ESR, LIPASE, TSH3 #### [address] Glucose [Mass/Vol] 82 mg/dL Normal 70-100 [facility] Comment on above: Result Comment: [place] Glucose Reference Range is dependent on time and content of last meal. Glucose of more than 200 mg/dL in a nonstressed, ambulatory subject supports the diagnosis of Diabetes Mellitus. ADA recommended reference range Performed By: #### C BC, MG, CMP, ESR, LIPASE, TSH3 #### [address] Potassium [Moles/Vol] 4.0 mmol/L Normal 3.5-5.1 [facility] Comment on above: Performed By: #### C BC, MG, CMP, ESR, LIPASE, TSH3 #### [facility] [address] Protein [Mass/Vol] 4.8 g/dL Low 6.1-7.9 [facility] Comment on above: Performed By: #### C BC, MG, CMP, ESR, LIPASE, TSH3 #### [facility] [address] Sodium [Moles/Vol] 138 mmol/L Normal 136-146 [facility] Comment on above: Performed By: #### C BC, MG, CMP, ESR, LIPASE, TSH3 #### [facility] [address] Urea nitrogen [Mass/Vol] 2 mg/dL Low 9-23 [facility] Comment on above: Performed By: #### C BC, MG, CMP, ESR, LIPASE, TSH3 #### [facility] [address] Globulin Calc (S) [Mass/Vol] Ordered By: Jessica Akhtar on 04-01-2022 Globulin (S) [Mass/Vol] 2.0 g/dL [facility] Hemoglobin and Hematocriton 04-01-2022 Hematocrit (Bld) [Volume fraction] 26.9 % Low 34.0-46.4 [facility] Comment on above: Result Comment: PERF ORMED BY: [place] [id number] PATHOLOGIST [employer] DRAFTER RADHA GARCIA M.D. Performed By: #### C BC, MG, CMP, ESR, LIPASE, TSH3 #### [address] Hemoglobin (Bld) [Mass/Vol] 8.9 g/dL Low 11.8-15.4 [facility] Comment on above: Performed By: #### C BC, MG, CMP, ESR, LIPASE, TSH3 #### [facility] [address] Hematocrit (Bld) [Volume fraction] 21.7 % Low 34.0-46.4 [facility] Comment on above: Result Comment: PERF ORMED BY: [place] [id number] PATHOLOGIST [employer] DRAF[employer] RADHA GARCIA M.D. Performed By: #### L IPASE, PT, CBC, PTT, CMP #### [facility] [address] [place] [address] [place] Hemoglobin (Bld) [Mass/Vol] 7.2 g/dL Low 11.8-15.4 [facility] Comment on above: Performed By: #### L IPASE, PT, CBC, PTT, CMP #### [facility] [address] [place] [id number] [place] Protein [Mass/volume] in Ser um or PlasmaOrdered By: Jessica Akhtar on 04-01-2022 Protein [Mass/Vol] 4.8 g/dL 6.1-7.9 [facility] Serum or plasma alanine carlos otransferase measurement without P-5'-P (enzymatic activiOrdered By: Jessica Akhtar on 04-01-2022 ALT No additional P-5'-P [Catalytic activity/Vol] 18 U/L 10-60 [facility] Serum or plasma albumin/glob ulin mass ratioOrdered By: Jessica Akhtar on 04-01-2022 Albumin/Globulin [Mass ratio] 1.4 {ratio} [facility] Serum or plasma alkaline belkys sphatase measurement (enzymatic activity/volume)Ordered By: Jessica Akhtar on 04-01-2022 ALP [Catalytic activity/Vol] 47 U/L 32-92 [facility] Serum or plasma aspartate am inotransferase measurement (enzymatic activity/volume)Ordered By: Jessica Akhtar on 04-01-2022 AST [Catalytic activity/Vol] 18 U/L 10-42 [facility] Serum or plasma total biliru bin measurement (mass/volume)Ordered By: Jessica Akhtar on 04-01-2022 Bilirubin [Mass/Vol] 0.4 mg/dL 0.3-1.2 [facility] Activated partial thrombopla stin time (aPTT) in platelet poor plasma by coagulation aOrdered By: Jaime Rodriguez on 03-31-2022 aPTT Coag (PPP) [Time] 24.5 s 25.1-36.[address] [facility] Albumin [Mass/volume] in Ser um or PlasmaOrdered By: Jaime Rodriguez on 03-31-2022 Albumin [Mass/Vol] 3.2 g/dL 3.2-5.5 [facility] Automated erythrocytes count in urine sediment (number/area)Ordered By: Jessica Akhtar on 03-31-2022 RBC Auto (Urine sed) [#/Area] None seen [HPF] 0-4 [facility] Automated leukocytes count i n urine sediment (number/area)Ordered By: Jessica Akhtar on 03-31-2022 WBC Auto (Urine sed) [#/Area] 10-19 [HPF] 0-4 [facility] Basophils Auto (Bld) [#/Vol] Ordered By: Jaime Rodriguez on 03-31-2022 Basophils (Bld) [#/Vol] 0.1 10*3/uL 0.0-0.2 [facility] Basophils/100 WBC Auto (Bld) Ordered By: Jaime Rodriguez on 03-31-2022 Basophils/100 WBC (Bld) 0.5 % . [facility] Bilirubin Test strip Ql (U)O rdered By: Jessica Akhtar on 03-31-2022 Bilirubin Ql (U) Negative Negative [facility] Blood hemoglobin measurement (mass/volume)Ordered By: Jaime Rodriguez on 03-31-2022 Hemoglobin (Bld) [Mass/Vol] 6.8 g/dL 11.8-15.4 [facility] Blood leukocytes automated c ount (number/volume)Ordered By: Jaime Rodriguez on 03-31-2022 WBC (Bld) [#/Vol] 11.7 10*3/uL 4.5-11.0 [facility] COVID-19 Antigenon 2 COVID-19 Antigen Healthcare Worker?: [...] developed and its performance characteristic determined by [employer] and validated at [facility]. This test has not been FDA cleared [...] for SARS Antigen by DISHA PERFORMED BY: [place] [id number] PATHOLOGIST [employer] DRAFTER RADHA GARCIA M.D. Normal [facility] Comment on above: Performed By: #### C BC, MG, CMP, ESR, LIPASE, TSH3 #### [address] COVID-19 [facility] 03-31-2022 SARS-CoV-2 (COVID-19) RNA SARABJIT+probe Ql (Unsp spec) Negative Normal Negative [facility] Comment on above: Order Comment: Healt hcare Worker?: N Result Comment: Testing for SARS-CoV-2 by RT-PCR This test was developed and its performance characteristics determined by [employer] ([employer]) and validated at the [facility]. This test has not been FDA cleared [...] is terminated or revoked sooner. PERFORMED BY: [facility] [address] [place] [address] PATHOLOGIST CIRCUIT [employer] DRAFTER RADHA GARCIA M.D. Performed By: #### C BC, MG, CMP, ESR, LIPASE, TSH3 #### [address] COVID-19 Positive/NegativeOr dered By: Jaime Rodriguez on 03-31-2022 SARS-CoV-2 (COVID-19) N gene SARABJIT+probe Ql (Resp) Negative Negative [facility] Comment on above: Testing for SARS-CoV -2 by RT-PCRThis test was developed and its performance characteristics determined by [employer]) and validated at the [facility]. This test has not been FDA cleared [...] (COVID-19) Ag IA.rapid Ql (Resp) Negative Negative [facility] Comment on above: This is a duplicate [facility] SARS Antigen (DISHA) result to be used for statistical tracking purpose only. CT biopsyOrdered By: Jessica stewart on 03-31-2022 Transferrin [Mass/Vol] 313 mg/dL 180-380 Fi [facility] Clostridioides difficile tox in B tcdB gene [Presence] in Stool by SARABJIT with probe deteOrdered By: Jaime Rodriguez on 03-31-2022 C. difficile toxin B tcdB gene SARABJIT+probe Ql (Stl) Positive Negative [facility] Comment on above: Critical valueresult calledat 1620 on 03/31/22Testing performed by RT-PCR Clostridium Difficileon Clostridium Difficile Positive Normal Negative [facility] Comment on above: Order Comment: > or = to 3 loose/watery stools in the last 24 HRS? Y Is patient on promotility agents or tube feeding? N Result Comment: Crit ical value result called at 1620 on 03/31/22 Testing performed by RT-PCR PERFORMED BY: [place] [id number] PATHOLOGIST [employer] D[employer]TER RADHA GARCIA M.D. Performed By: #### C BC, MG, CMP, ESR, LIPASE, TSH3 #### [address] Color Auto (U)Ordered By: Alfonso Akhtar on 03-31-2022 Color (U) Yellow Yellow [facility] Complete Blood Count Auto Di ffon 03-31-2022 Basophils (Bld) [#/Vol] 0.1 10*3/uL Normal 0.0-0.2 [facility] Comment on above: Performed By: #### C BC, MG, CMP, ESR, LIPASE, TSH3 #### [facility] [address] [place] [address] Basophils/100 WBC (Bld) 0.5 % Normal . [facility] Comment on above: Performed By: #### C BC, MG, CMP, ESR, LIPASE, TSH3 #### [address] Eosinophils (Bld) [#/Vol] 0.0 10*3/uL Normal 0.0-0.45 [facility] Comment on above: Performed By: #### C BC, MG, CMP, ESR, LIPASE, TSH3 #### [address] Eosinophils/100 WBC (Bld) 0.3 % Normal . [facility] Comment on above: Performed By: #### C BC, MG, CMP, ESR, LIPASE, TSH3 #### [address] Erythrocyte distribution width (RBC) [Ratio] 14.8 % Normal 11.9-15.3 [facility] Comment on above: Performed By: #### C BC, MG, CMP, ESR, LIPASE, TSH3 #### [address] Hematocrit (Bld) [Volume fraction] 21.1 % Low 34.0-46.4 [facility] Comment on above: Performed By: #### C BC, MG, CMP, ESR, LIPASE, TSH3 #### [address] Hemoglobin (Bld) [Mass/Vol] 6.8 g/dL Low 11.8-15.4 [facility] Comment on above: Performed By: #### C BC, MG, CMP, ESR, LIPASE, TSH3 #### [address] Lymphocytes (Bld) [#/Vol] 2.6 10*3/uL Normal 1.00-4.8 [facility] Comment on above: Performed By: #### C BC, MG, CMP, ESR, LIPASE, TSH3 #### [address] Lymphocytes/100 WBC (Bld) 22.6 % Normal . [facility] Comment on above: Performed By: #### C BC, MG, CMP, ESR, LIPASE, TSH3 #### [address] [address] [place] MCH (RBC) [Entitic mass] 28.7 pg Normal 24.7-34.3 [facility] Comment on above: Performed By: #### C BC, MG, CMP, ESR, LIPASE, TSH3 #### [address] MCV (RBC) [Entitic vol] 88.7 fL Normal 80-100 [facility] Comment on above: Performed By: #### C BC, MG, CMP, ESR, LIPASE, TSH3 #### [address] Mean Corpuscular HGB Conc 32.3 g/dL Normal 32.0-35.0 [facility] Comment on above: Performed By: #### C BC, MG, CMP, ESR, LIPASE, TSH3 #### [address] Monocytes (Bld) [#/Vol] 0.7 10*3/uL Normal 0.0-0.8 [facility] Comment on above: Performed By: #### C BC, MG, CMP, ESR, LIPASE, TSH3 #### [address] Monocytes/100 WBC (Bld) 5.6 % Normal . [facility] Comment on above: Performed By: #### C BC, MG, CMP, ESR, LIPASE, TSH3 #### [address] Neutrophils (Bld) [#/Vol] 8.3 10*3/uL High 1.8-7.7 [facility] Comment on above: Performed By: #### C BC, MG, CMP, ESR, LIPASE, TSH3 #### [address] Neutrophils/100 WBC (Bld) 71.0 % Normal . [facility] Comment on above: Performed By: #### C BC, MG, CMP, ESR, LIPASE, TSH3 #### [address] Nucleated RBC/100 WBC (Bld) [Ratio] 0.1 % Normal 0-0.5 [facility] Comment on above: Performed By: #### C BC, MG, CMP, ESR, LIPASE, TSH3 #### [address] Platelet mean volume (Bld) [Entitic vol] 7.4 fL Normal 6.3-10.7 [facility] Comment on above: Performed By: #### C BC, MG, CMP, ESR, LIPASE, TSH3 #### [address] Platelets (Bld) [#/Vol] 422 10*3/uL Normal 150-450 [facility] Comment on above: Performed By: #### C BC, MG, CMP, ESR, LIPASE, TSH3 #### [address] RBC (Bld) [#/Vol] 2.38 10*6/uL Low 3.60-5.00 [facility] Comment on above: Performed By: #### C BC, MG, CMP, ESR, LIPASE, TSH3 #### [address] WBC (Bld) [#/Vol] 11.7 10*3/uL High 4.5-11.0 [facility] Comment on above: Performed By: #### C BC, MG, CMP, ESR, LIPASE, TSH3 #### [address] Comprehensive Metabolic Pane eagel 03-31-2022 Albumin [Mass/Vol] 3.2 g/dL Normal 3.2-5.5 [facility] Comment on above: Performed By: #### C BC, MG, CMP, ESR, LIPASE, TSH3 #### [address] Albumin/Globulin [Mass ratio] 1.3 {ratio} Normal [facility] Comment on above: Performed By: #### C BC, MG, CMP, ESR, LIPASE, TSH3 #### [facility] [address] ALP [Catalytic activity/Vol] 50 U/L Normal 32-92 [facility] Comment on above: Performed By: #### C BC, MG, CMP, ESR, LIPASE, TSH3 #### [facility] [address] ALT [Catalytic activity/Vol] 16 U/L Normal 10-60 [facility] Comment on above: Performed By: #### C BC, MG, CMP, ESR, LIPASE, TSH3 #### [facility] [address] Anion gap [Moles/Vol] 12.0 mmol/L Normal 6.0-15.[address] [facility] Comment on above: Performed By: #### C BC, MG, CMP, ESR, LIPASE, TSH3 #### [address] AST [Catalytic activity/Vol] 13 U/L Normal 10-42 [facility] Comment on above: Performed By: #### C BC, MG, CMP, ESR, LIPASE, TSH3 #### [address] Bilirubin [Mass/Vol] 0.3 mg/dL Normal 0.3-1.2 [facility] Comment on above: Performed By: #### C BC, MG, CMP, ESR, LIPASE, TSH3 #### [facility] [address] [place] [address] Calcium [Mass/Vol] 8.9 mg/dL Normal 8.2-10.2 [facility] Comment on above: Performed By: #### C BC, MG, CMP, ESR, LIPASE, TSH3 #### [facility] [address] [place] [address] [place] Chloride [Moles/Vol] 103 mmol/L Normal 95-114 [facility] Comment on above: Performed By: #### C BC, MG, CMP, ESR, LIPASE, TSH3 #### [place] [address] [place] CO2 [Moles/Vol] 24.1 mmol/L Normal 22.0-30.0 [facility] Comment on above: Performed By: #### C BC, MG, CMP, ESR, LIPASE, TSH3 #### [facility] [address] Creatinine [Mass/Vol] 0.75 mg/dL Normal 0.44-1.03 [facility] Comment on above: Performed By: #### C BC, MG, CMP, ESR, LIPASE, TSH3 #### [address] Creatinine Clr Calc Pharmacy 82.80 [facility] Comment on above: Performed By: #### C BC, MG, CMP, ESR, LIPASE, TSH3 #### [address] Estimated GFR ( Letty > 60 [facility] Comment on above: Result Comment: GFR estimated reference range: According to KDOQI guidelines, <60 ml/min/1.73m2 is sufficient to diagnose a patient with chronic kidney disease. Performed By: #### C BC, MG, CMP, ESR, LIPASE, TSH3 #### [address] Estimated GFR (Non- Am > 60 [facility] Comment on above: Performed By: #### C BC, MG, CMP, ESR, LIPASE, TSH3 #### [address] Globulin (S) [Mass/Vol] 2.5 g/dL [facility] Comment on above: Performed By: #### C BC, MG, CMP, ESR, LIPASE, TSH3 #### [address] Glucose [Mass/Vol] 90 mg/dL Normal 70-100 [facility] Comment on above: Result Comment: [place] Glucose Reference Range is dependent on time and content of last meal. Glucose of more than 200 mg/dL in a nonstressed, ambulatory subject supports the diagnosis of Diabetes Mellitus. ADA recommended reference range Performed By: #### C BC, MG, CMP, ESR, LIPASE, TSH3 #### [facility] [address] Potassium [Moles/Vol] 3.1 mmol/L Low 3.5-5.1 [facility] Comment on above: Performed By: #### C BC, MG, CMP, ESR, LIPASE, TSH3 #### [facility] [address] Protein [Mass/Vol] 5.7 g/dL Low 6.1-7.9 [facility] Comment on above: Performed By: #### C BC, MG, CMP, ESR, LIPASE, TSH3 #### [facility] [address] Sodium [Moles/Vol] 136 mmol/L Normal 136-146 [facility] Comment on above: Performed By: #### C BC, MG, CMP, ESR, LIPASE, TSH3 #### [address] Urea nitrogen [Mass/Vol] 6 mg/dL Low 9-23 [facility] Comment on above: Performed By: #### C BC, MG, CMP, ESR, LIPASE, TSH3 #### [address] Creatinine and Glomerular fi ltration rate.predicted panel (S/P/Bld)Ordered By: Jaime Rodriguez on 03-31-2022 Creatinine [Mass/Vol] 0.75 mg/dL 0.44-1.03 [facility] Dipstick and Microscopicon 1 Appearance (U) Clear Normal Clear [facility] Comment on above: Order Comment: Name Collection Type:: Clean-Voided Midstream Performed By: #### L IPASE, PT, CBC, PTT, CMP #### [address] Bacteria,Urine 3+ High None Seen [facility] Comment on above: Order Comment: Name Collection Type:: Clean-Voided Midstream Performed By: #### L IPASE, PT, CBC, PTT, CMP #### [facility] [address] [place] [address] [place] Bilirubin,Urine Negative Normal Negative [facility] Comment on above: Order Comment: Name Collection Type:: Clean-Voided Midstream Performed By: #### L IPASE, PT, CBC, PTT, CMP #### [place] [address] [place] Color (U) Yellow Normal Yellow [facility] Comment on above: Order Comment: Name Collection Type:: Clean-Voided Midstream Performed By: #### L IPASE, PT, CBC, PTT, CMP #### [place] [address] [place] Glucose Ql (U) Normal Normal Normal [facility] Comment on above: Order Comment: Name Collection Type:: Clean-Voided Midstream Performed By: #### L IPASE, PT, CBC, PTT, CMP #### [place] [address] [place] Hyaline Casts,Urine 0-8 Normal 0-8 [facility] Comment on above: Order Comment: Name Collection Type:: Clean-Voided Midstream Result Comment: PERF ORMED BY: [place] [id number] PATHOLOGIST [employer]ARD DRAFTER RADHA GARCIA M.D. Performed By: #### L IPASE, PT, CBC, PTT, CMP #### [address] Ketones Ql (U) Negative Normal Negative [facility] Comment on above: Order Comment: Name Collection Type:: Clean-Voided Midstream Performed By: #### L IPASE, PT, CBC, PTT, CMP #### [place] [address] [place] Leukocyte esterase Test strip Ql (U) 3+ High Negative [facility] Comment on above: Order Comment: Name Collection Type:: Clean-Voided Midstream Performed By: #### L IPASE, PT, CBC, PTT, CMP #### [place] [address] [place] Nitrite,Urine Positive High Negative [facility] Comment on above: Order Comment: Name Collection Type:: Clean-Voided Midstream Performed By: #### L IPASE, PT, CBC, PTT, CMP #### [address] Occult Blood,Urine Negative Normal Negative [facility] Comment on above: Order Comment: Name Collection Type:: Clean-Voided Midstream Result Comment: PERF ORMED BY: [place] [id number] PATHOLOGIST [employer] DRAFTER RADHA GARCIA M.D. Performed By: #### L IPASE, PT, CBC, PTT, CMP #### [address] pH (U) 5.5 [pH] Normal 5.0-9.0 [facility] Comment on above: Order Comment: Name Collection Type:: Clean-Voided Midstream Performed By: #### L IPASE, PT, CBC, PTT, CMP #### [address] Protein,Urine Negative Normal Negative [facility] Comment on above: Order Comment: Name Collection Type:: Clean-Voided Midstream Performed By: #### L IPASE, PT, CBC, PTT, CMP #### [address] RBC,Urine None Seen Normal 0-4 [facility] Comment on above: Order Comment: Name Collection Type:: Clean-Voided Midstream Performed By: #### L IPASE, PT, CBC, PTT, CMP #### [address] Specificy [place],Urine 1.005 Normal 1.001-1.03 0 [facility] Comment on above: Order Comment: Name Collection Type:: Clean-Voided Midstream Performed By: #### L IPASE, PT, CBC, PTT, CMP #### [address] Squamous Epithelial Cell,Urine 5-9 High 0-2 [facility] Comment on above: Order Comment: Name Collection Type:: Clean-Voided Midstream Performed By: #### L IPASE, PT, CBC, PTT, CMP #### [facility] [address] Urobilinogen,Urine Normal Normal Normal [facility] Comment on above: Order Comment: Name Collection Type:: Clean-Voided Midstream Performed By: #### L IPASE, PT, CBC, PTT, CMP #### [facility] [address] [place] [id number] [facility] WBC,Urine 10-19 High 0-4 [facility] Comment on above: Order Comment: Name Collection Type:: Clean-Voided Midstream Performed By: #### L IPASE, PT, CBC, PTT, CMP #### [facility] [address] ECG 12 lead ECGon 03-31-2022 ECG 12 lead ECG [facility] [place] [address] [place] [address] Electrocardiograph Report Signed Patient: Raquel Correa MR#: [id number] : 1985 Acct:[id number] Age/Sex: 37 / F ADM Date: 03/31/22 Loc: Room: [address] [place] [address] Type: DIS INOo Attending Dr: Jessica Akhtar [...] Inferior leads Confirmed by Jaime Rodriguez DO ([id number]) on 03/31/2022 12:35:27 PM Referred By: Electronically Signed By:Jaime Rodriguez DO Transcribed By: MUS Signed By Jaime Rodriguez DO 03/31 1235 Normal [facility] Eosinophils Auto (Bld) [#/Vo l]Ordered By: Jaime Rodriguez on 03-31-2022 Eosinophils (Bld) [#/Vol] 0.0 10*3/uL 0.0-0.45 [facility] Eosinophils/100 WBC Auto (Bl d)Ordered By: Jaime Rodriguez on 03-31-2022 Eosinophils/100 WBC (Bld) 0.3 % . [facility] Erythrocyte Sedimentation Ra josey 03-31-2022 ESR (Bld) [Velocity] 8 mm/h Normal 0-19 [facility] Comment on above: Result Comment: PERF ORMED BY: [facility] [address] [facility] [address] [place] [address] PATHOLOGIST [employer] DRAF[employer] RADHA GARCIA M.D. Performed By: #### C BC, MG, CMP, ESR, LIPASE, TSH3 #### [facility] [address] Erythrocyte distribution wid th Auto (RBC) [Ratio]Ordered By: Jaime Rodriguez on 03-31-2022 Erythrocyte distribution width (RBC) [Ratio] 14.8 % 11.9-15.3 [facility] Erythrocyte sedimentation ra te by Photometric methodOrdered By: Jaime Rodriguez on 03-31-2022 ESR Photometric method (Bld) [Velocity] 8 mm/hr 0-19 [facility] Estimated glomerular filtrat ion rate (GFR) non- AmericanOrdered By: Jaime Rodriguez on 03-31-2022 GFR/1.73 sq M.predicted among non-blacks MDRD (S/P/Bld) [Vol rate/Area] > 60 mL/Min [facility] Ferritinon 03-31-2022 Ferritin [Mass/Vol] 3.9 ng/mL Low 11-306.8 [facility] Comment on above: Order Comment: Comme nt add Performed By: #### L IPASE, PT, CBC, PTT, CMP #### [facility] [address] [place] [id number] [facility] Ferritin [Mass/volume] in Se rum or PlasmaOrdered By: Jessica Akhtar on 03-31-2022 Ferritin [Mass/Vol] 3.9 ng/mL 11-306.8 [facility] Folate [Mass/volume] in Seru m or PlasmaOrdered By: Jessica Akhtar on 03-31-2022 Folate [Mass/Vol] 21.7 ng/mL >5.9 [facility] Comment on above: Folate reference ran ge: >5.9 ng/mlThe WHO technical consultation on folate and vitamin e22xfryexyduaff has determined that folate concentrations lessthan 4 ng/ml are considered deficient. Globulin Calc (S) [Mass/Vol] Ordered By: Jaime Rodriguez on 03-31-2022 Globulin (S) [Mass/Vol] 2.5 g/dL [facility] Hematocrit Auto (Bld) [Volum e fraction]Ordered By: Jaime Rodriguez on 03-31-2022 Hematocrit (Bld) [Volume fraction] 21.1 % 34.0-46.4 [facility] Hemoglobin and Hematocriton 03-31-2022 Hematocrit (Bld) [Volume fraction] 24.1 % Low 34.0-46.4 [facility] Comment on above: Result Comment: PERF ORMED BY: [facility] [address] [place] [address] PATHOLOGIST [employer] RADHA GARCIA M.D. Performed By: #### C BC, MG, CMP, ESR, LIPASE, TSH3 #### [facility] [address] Hemoglobin (Bld) [Mass/Vol] 8.0 g/dL Low 11.8-15.4 [facility] Comment on above: Performed By: #### C BC, MG, CMP, ESR, LIPASE, TSH3 #### [facility] [address] [address] Iron [Mass/volume] in Serum or PlasmaOrdered By: Jessica Akhtar on 03-31-2022 Iron [Mass/Vol] 9 ug/dL 40-150 [facility] Iron and TIBC Profileon 100 % Iron Saturation 2.0 % Low 20-50 [facility] Comment on above: Order Comment: Comme nt add Performed By: #### L IPASE, PT, CBC, PTT, CMP #### [facility] [address] [place] [address] [place] Iron [Mass/Vol] 9 ug/dL Low 40-150 [facility] Comment on above: Order Comment: Comme nt add Performed By: #### L IPASE, PT, CBC, PTT, CMP #### [facility] [address] Total Iron Binding Capacity 438 ug/dL Normal 255-450 [facility] Comment on above: Order Comment: Comme nt add Performed By: #### L IPASE, PT, CBC, PTT, CMP #### [facility] [address] [place] [address] [place] Transferrin [Mass/Vol] 313 mg/dL Normal 180-[address] [facility] Comment on above: Order Comment: Comme nt add Performed By: #### L IPASE, PT, CBC, PTT, CMP #### [address] Iron binding capacity [Mass/ volume] in Serum or PlasmaOrdered By: Jessica Akhtar on 03-31-2022 Iron binding capacity [Mass/Vol] 438 ug/dL 255-450 [facility] Iron saturation [Mass Fracti on] in Serum or PlasmaOrdered By: Jessica Akhtar on 03-31-2022 Iron saturation [Mass fraction] 2.0 % 20-50 [facility] Ketones Auto test strip (U) [Mass/Vol]Ordered By: Jessica Akhtar on 03-31-2022 Ketones (U) [Mass/Vol] Negative Negative [facility] Laboratory - Chemistry and C hemistry - challengeOrdered By: Jessica Akhtar on 03-31-2022 Cobalamin (Vitamin B12) [Mass/Vol] 111 pg/mL 180-914 [facility] Magnesium [Mass/Vol] 1.6 mg/dL 1.6-2.6 [facility] Laboratory - Chemistry and C hemistry - challengeOrdered By: Jaime Rodriguez on 03-31-2022 Lipase [Catalytic activity/Vol] 31.0 U/L [facility] Magnesium [Mass/Vol] 1.7 mg/dL 1.6-2.6 [facility] Laboratory - CoagulationOrde red By: Jaime Rodriguez on 03-31-2022 PT Coag (PPP) [Time] 11.3 s 9.0-12.9 [facility] Laboratory - Hematology and Cell countsOrdered By: Jaime Rodriguez on 03-31-2022 Nucleated RBC/100 WBC (Bld) [Ratio] 0.1 % 0-0.5 [facility] Laboratory - UrinalysisOrder ed By: Jessica Akhtar on 03-31-2022 Hyaline casts LM Ql (Urine sed) 0-8 [LPF] 0-8 [facility] LeukoReduced RBCon 2 LeukoReduced RBC TRANSFUSED 03/31/22 1615 Normal [facility] Lipaseon 03-31-2022 Lipase [Catalytic activity/Vol] 31.0 U/L Normal [facility] Comment on above: Performed By: #### C BC, MG, CMP, ESR, LIPASE, TSH3 #### [facility] [address] Lymphocytes Auto (Bld) [#/Vo l]Ordered By: Jaime Rodriguez on 03-31-2022 Lymphocytes (Bld) [#/Vol] 2.6 10*3/uL 1.00-4.8 [facility] Lymphocytes/100 WBC Auto (Bl d)Ordered By: Jaime Rodriguez on 03-31-2022 Lymphocytes/100 WBC (Bld) 22.6 % . [facility] MCH Auto (RBC) [Entitic mass ]Ordered By: Jaime Rodriguez on 03-31-2022 MCH (RBC) [Entitic mass] 28.7 pg 24.7-34.3 [facility] MCHC Auto (RBC) [Mass/Vol]Or dered By: Jaime Rodriguez on 03-31-2022 MCHC (RBC) [Mass/Vol] 32.3 g/dL 32.0-35.0 [facility] MCV Auto (RBC) [Entitic vol] Ordered By: Jaime Rodriguez on 03-31-2022 MCV (RBC) [Entitic vol] 88.7 fL 80-100 [facility] Magnesiumon 03-31-2022 Magnesium [Mass/Vol] 1.7 mg/dL Normal 1.6-2.6 [facility] Comment on above: Performed By: #### C BC, MG, CMP, ESR, LIPASE, TSH3 #### [facility] [address] Magnesium [Mass/Vol] 1.6 mg/dL Normal 1.6-2.6 [facility] Comment on above: Order Comment: Comme nt add Performed By: #### L IPASE, PT, CBC, PTT, CMP #### [facility] [address] Monocytes Auto (Bld) [#/Vol] Ordered By: Jaiem Rodriguez on 03-31-2022 Monocytes (Bld) [#/Vol] 0.7 10*3/uL 0.0-0.8 [facility] Monocytes/100 WBC Auto (Bld) Ordered By: Jaime Rodriguez on 03-31-2022 Monocytes/100 WBC (Bld) 5.6 % . [facility] Neutrophils Auto (Bld) [#/Vo l]Ordered By: Jaime Rodriguez on 03-31-2022 Neutrophils (Bld) [#/Vol] 8.3 10*3/uL 1.8-7.7 [facility] Neutrophils/100 WBC Auto (Bl d)Ordered By: Jaime Rodriguez on 03-31-2022 Neutrophils/100 WBC (Bld) 71.0 % . [facility] Nitrite Test strip Ql (U)Ord ered By: Jessica Akhtar on 03-31-2022 Nitrite Ql (U) Positive Negative [facility] No Panel InformationOrdered By: Jaime Rodriguez on 03-31-2022 Estimated GFR () > 60 mL/Min [facility] Comment on above: GFR estimated refere nce range: According to KDOQI guidelines, <60 ml/min/1.73m2 is sufficient to diagnose a patient with chronic kidney disease. Pharmacy Creatinine Clearance (Chem 82.80 [facility] SARS Antigen (LFIA) [facility] Partial Thromboplastin Timeo n 03-31-2022 aPTT Coag (Bld) [Time] 24.5 s Low 25.1-36.5 Fi [facility] Comment on above: Result Comment: PERF ORMED BY: [facility] [address] [place] [address] PATHOLOGIST [employer] RADHA GARCIA M.D. Performed By: #### C BC, MG, CMP, ESR, LIPASE, TSH3 #### [facility] [address] Platelet mean volume Auto (B ld) [Entitic vol]Ordered By: Jaime Rodriguez on 03-31-2022 Platelet mean volume (Bld) [Entitic vol] 7.4 fL 6.3-10.7 [facility] Platelet poor plasma interna tional normalized ratio (INR) by coagulation assay (relatOrdered By: Jaime Rodriguez on 03-31-2022 INR Coag (PPP) [Relative time] 1.0 {INR} [facility] Comment on above: INR Therapeutic Rang e [...] 03-31-2022 Platelets (Bld) [#/Vol] 422 10*3/uL 150-450 [facility] Protein Auto test strip (U) [Mass/Vol]Ordered By: Jessica Akhtar on 03-31-2022 Protein (U) [Mass/Vol] Negative Negative [facility] Protein [Mass/volume] in Ser um or PlasmaOrdered By: Jaime Rodriguez on 03-31-2022 Protein [Mass/Vol] 5.7 g/dL 6.1-7.9 [facility] Prothrombin Time INRon 03-31 INR Coag (PPP) [Relative time] 1.0 {INR} Normal [facility] Comment on above: Result Comment: INR Therapeutic [...] BC, MG, CMP, ESR, LIPASE, TSH3 #### [facility] [address] PT Coag (PPP) [Time] 11.3 s Normal 9.0-12.9 [facility] Comment on above: Performed By: #### C BC, MG, CMP, ESR, LIPASE, TSH3 #### [facility] [address] RBC Auto (Bld) [#/Vol]Ordere d By: Jaime Rodriguez on 03-31-2022 RBC (Bld) [#/Vol] 2.38 10*6/uL 3.60-5.00 [facility] Serum or plasma alanine carlos otransferase measurement without P-5'-P (enzymatic activiOrdered By: Jaime Rodriguez on 03-31-2022 ALT No additional P-5'-P [Catalytic activity/Vol] 16 U/L 1060 [facility] Serum or plasma albumin/glob ulin mass ratioOrdered By: Jaime Rodriguez on 03-31-2022 Albumin/Globulin [Mass ratio] 1.3 {ratio} [facility] Serum or plasma alkaline belkys sphatase measurement (enzymatic activity/volume)Ordered By: aJime Rodriguez on 03-31-2022 ALP [Catalytic activity/Vol] 50 U/L 32-92 [facility] Serum or plasma anion gap de terminationOrdered By: Jaime Rodriguez on 03-31-2022 Anion gap [Moles/Vol] 12.0 mmol/L 6.0-15.[address] [facility] Serum or plasma aspartate am inotransferase measurement (enzymatic activity/volume)Ordered By: Jaime Rodriguez on 03-31-2022 AST [Catalytic activity/Vol] 13 U/L 10-42 [facility] Serum or plasma calcium mariana urement (mass/volume)Ordered By: Jaime Rodriguez on 03-31-2022 Calcium [Mass/Vol] 8.9 mg/dL 8.2-10.2 [facility] Serum or plasma chloride jaqui surement (moles/volume)Ordered By: Jaime Rodriguez on 03-31-2022 Chloride [Moles/Vol] 103 mmol/L 95-114 [facility] Serum or plasma glucose mariana urement (mass/volume)Ordered By: Jaime Rodriguez on 03-31-2022 Glucose [Mass/Vol] 90 mg/dL 70-100 [facility] Comment on above: ADA recommended refe rence rangeRandom Glucose Reference Range is dependent on time and content of last meal. Glucose of more than 200 mg/dL in a nonstressed, ambulatory subject supports the diagnosis of Diabetes Mellitus. Serum or plasma potassium me asurement (moles/volume)Ordered By: Jaime Rodriguez on 03-31-2022 Potassium [Moles/Vol] 3.1 mmol/L 3.5-5.1 [facility] Serum or plasma sodium measu rement (moles/volume)Ordered By: Jaime Rodriguez on 03-31-2022 Sodium [Moles/Vol] 136 mmol/L 136-146 [facility] Serum or plasma total biliru bin measurement (mass/volume)Ordered By: Jaime Rodriguez on 03-31-2022 Bilirubin [Mass/Vol] 0.3 mg/dL 0.3-1.2 [facility] Serum or plasma total carbon dioxide measurement (moles/volume)Ordered By: Jaime Rodriguez on 03-31-2022 CO2 [Moles/Vol] 24.1 mmol/L 22.0-30.0 [facility] Serum or plasma urea nitroge n measurement (mass/volume)Ordered By: Jaime Rodriguez on 03-31-2022 Urea nitrogen [Mass/Vol] 6 mg/dL 9-23 [facility] Ghazala Ag Negativeon 03-31-20 Ghazala Ag Negative Negative Normal Negative [facility] Comment on above: Result Comment: This is a duplicate Ghazala SARS Antigen (DISHA) result to be used for statistical tracking purpose only. PERFORMED BY: [place] [id number] PATHOLOGIST [employer] RADHA GARCIA M.D. Performed By: #### C BC, MG, CMP, ESR, LIPASE, TSH3 #### [facility] [address] [place] [address] Specific gravity Auto test s trip (U) [Rel density]Ordered By: Jessica Akhtar on 03-31-2022 Specific gravity (U) [Rel density] 1.005 1.001-1.03 0 [facility] Squamous epithelial cells de tection in urine sediment by light microscopyOrdered By: Jessica Akhtar on 03-31-2022 Epithelial cells.squamous LM Ql (Urine sed) 5-9 [HPF] 0-2 [facility] Stool Cultureon 03-31-2022 Stool culture Negative for Shiga T oxin 1 Negative for Shiga Toxin 2 -- A negative Shiga Toxin result may occur if the antigen level in the specimen is below the detection limit of the assay. Stool culture results No Salmonella, Shigella, Campy or E. coli 0157:H7 Isolated PERFORMED BY: [place] [id number] PATHOLOGIST [employer] RADHA GARCIA M.D. [facility] Comment on above: Performed By: #### C BC, MG, CMP, ESR, LIPASE, TSH3 #### [facility] [address] [place], [place] [id number] [facility] Stool Occult Blood (Guaiac)o n 03-31-2022 Stool Occult Blood (Guaiac) Occult Blood Positive for Occult Blood by Guaiac Methodology -- Reference range = Negative LACTOFERRIN Negative for Fecal Lactoferrin Immune suppression may cause reduced WBC counts, leading to a false negative result. -- Reference range = Negative PERFORMED BY: [place] [id number] PATHOLOGIST [employer] RADHA GARCIA M.D. Normal [facility] Comment on above: Performed By: #### C BC, MG, CMP, ESR, LIPASE, TSH3 #### [facility] [address] [place] [address] TSH DL <= 0.005 mIU/L QnOrde red By: Jaime Rodriguez on 03-31-2022 TSH Qn 3.41 m[IU]/L 0.45-5.33 [facility] Thyroid Stimulating Hormoneo n 03-31-2022 TSH Qn 3.41 m[IU]/L Normal 0.45-5.33 [facility] Comment on above: Result Comment: PERF ORMED BY: [place] [id number] PATHOLOGIST [employer] RADHA GARCIA M.D. Performed By: #### C BC, MG, CMP, ESR, LIPASE, TSH3 #### [facility] [address] [place], [place] [id number] [place] Type and Screenon 03-31-2022 ABO and Rh group Nom (Bld) Blood group O Rh(D) positive Normal [facility] Comment on above: Order Comment: Trans fuse now? Y Number of units to transfuse now? 1 Result Comment: PERF ORMED BY: [place] [id number] PATHOLOGIST [employer] RADHA GARCIA M.D. Urine Cultureon 03-31-2022 Bacteria identified Cx Nom (U) ORGANISM: Escherichia coli (ESBL) (O:ESCCOLESBL) [place] Count >100,000 Aerobic DIVYA Charge (NUC86) SUSCEPTIBILITY [...] RESISTANT TO ALL B-LACTAM DRUGS. PERFORMED BY: [place] [id number] PATHOLOGIST [employer] RADHA GARCIA M.D. Normal [facility] Comment on above: Performed By: #### L IPASE, PT, CBC, PTT, CMP #### [facility] [address] [place] [address] Urine bacteria detection by automated methodOrdered By: Jessica Akhtar on 03-31-2022 Bacteria Auto Ql (U) 3+ None Seen [facility] Urine clarity by refractomet ry automatedOrdered By: Jessica Akhtar on 03-31-2022 Clarity Refractometry automated (U) Clear Clear [facility] Urine glucose measurement by automated test strip (mass/volume)Ordered By: Jessica Akhtar on 03-31-2022 Glucose Auto test strip (U) [Mass/Vol] Normal mg/dL Normal [facility] Urine hemoglobin detection b y automated test stripOrdered By: Jessica Akhtar on 03-31-2022 Hemoglobin Auto test strip Ql (U) Negative Negative [facility] Urine leukocyte esterase det ection by automated test stripOrdered By: Jessica Akhtar on 03-31-2022 Leukocyte esterase Auto test strip Ql (U) 3+ Negative [facility] Urobilinogen Auto test strip (U) [Mass/Vol]Ordered By: Jessica Akhtar on 03-31-2022 Urobilinogen (U) [Mass/Vol] Normal mg/dL Normal [facility] Vit. B12/Folate Profileon Cobalamin (Vitamin B12) [Mass/Vol] 111 pg/mL Low 180-914 [facility] Comment on above: Order Comment: Ada nt add Performed By: #### L IPASE, PT, CBC, PTT, CMP #### [facility] [address] Folate 21.7 ng/mL Normal >5.9 [facility] Comment on above: Order Comment: Ada nt add Result Comment: Gabi te reference range: >5.9 ng/ml The WHO technical consultation on folate and vitamin b12 deficiencies has determined that folate concentrations less than 4 ng/ml are considered deficient. PERFORMED BY: [place] [id number] PATHOLOGIST [employer] RADHA GARCIA M.D. Performed By: #### L IPASE, PT, CBC, PTT, CMP #### [facility] [address] pH Auto test strip (U)Ordere d By: Jessica Akhtar on 03-31-2022 pH (U) 5.5 [pH] 5.0-9.0 [facility] Urine culture routineOrdered By: Dominik Vanegas on 03-30-2022 Bacteria identified Cx Nom (U) Escherichia coli (ESBL) [facility] Activated partial thrombopla stin time (aPTT) in platelet poor plasma by coagulation aOrdered By: Dominik Vanegas on 03-27-2022 aPTT Coag (PPP) [Time] 27.8 s 25.1-36.[address] [facility] Albumin [Mass/volume] in Ser um or PlasmaOrdered By: Dominik Vanegas on 03-27-2022 Albumin [Mass/Vol] 3.5 g/dL 3.2-5.5 [facility] Automated erythrocytes count in urine sediment (number/area)Ordered By: Dominik Vanegas on 03-27-2022 RBC Auto (Urine sed) [#/Area] 10-19 [HPF] 0-4 [facility] Automated leukocytes count i n urine sediment (number/area)Ordered By: Dominik Vanegas on 03-27-2022 WBC Auto (Urine sed) [#/Area] Innumerable [HPF] 0-4 [facility] Automated urine hyaline cast s count (number/volume)Ordered By: Dominik Vanegas on 03-27-2022 Hyaline casts Auto (U) [#/Vol] None seen [LPF] 0-1 [facility] Basophils Auto (Bld) [#/Vol] Ordered By: Dominik Vanegas on 03-27-2022 Basophils (Bld) [#/Vol] 0.0 10*3/uL 0.0-0.2 [facility] Basophils/100 WBC Auto (Bld) Ordered By: Dominik Vanegas on 03-27-2022 Basophils/100 WBC (Bld) 0.4 % . [facility] Bilirubin Test strip Ql (U)O rdered By: Dominik Vanegas on 03-27-2022 Bilirubin Ql (U) Negative Negative [facility] Blood hemoglobin measurement (mass/volume)Ordered By: Dominik Vanegas on 03-27-2022 Hemoglobin (Bld) [Mass/Vol] 9.8 g/dL 11.8-15.4 [facility] Blood leukocytes automated c ount (number/volume)Ordered By: Dominik Vanegas on 03-27-2022 WBC (Bld) [#/Vol] 11.7 10*3/uL 4.5-11.[address] [facility] [address] abdomen pelvis w conon CT abdomen pelvis w con [facility] [place] [address] [place] [address] CT Scan Report Signed Patient: Raquel Correa MR#: [id number] : 1985 Acct:[id number] Age/Sex: 37 / F ADM Date: 03/27/22 Loc: ER Room: Type: [facility] ER Attending Dr: Copies to: Doimnik Vanegas DO Ordering Provider: Dominik Vanegas DO [...] Nicolas Beck M.D.03/27/2022 1:58 PM Dictation Location: [place] [address] Transcribed By: [facility] 03/27/22 1358 Dictated By: Nicolas Beck II, MD 03/27/22 1350 Signed By: 03/27/22 1358 Normal [facility] Casts typing in urine sedime nt by light microscopyOrdered By: Dominik Vanegas on 03-27-2022 Casts LM Nom (Urine sed) None seen [LPF] None Seen [facility] Color Auto (U)Ordered By: Bhavesh Vanegas on 03-27-2022 Color (U) Dark yellow Yellow [facility] Complete Blood Count Auto Di ffon 03-27-2022 Basophils (Bld) [#/Vol] 0.0 10*3/uL Normal 0.0-0.2 [facility] Comment on above: Result Comment: PERF ORMED BY: [place] [id number] PATHOLOGIST [employer] RADHA GARCIA M.D. Performed By: #### L IPASE, PT, CBC, PTT, CMP #### [facility] [address] [place] [address] Basophils/100 WBC (Bld) 0.4 % Normal . [facility] Comment on above: Performed By: #### L IPASE, PT, CBC, PTT, CMP #### [facility] [address] Eosinophils (Bld) [#/Vol] 0.0 10*3/uL Normal 0.0-0.45 [facility] Comment on above: Performed By: #### L IPASE, PT, CBC, PTT, CMP #### [address] Eosinophils/100 WBC (Bld) 0.3 % Normal . [facility] Comment on above: Performed By: #### L IPASE, PT, CBC, PTT, CMP #### [address] Erythrocyte distribution width (RBC) [Ratio] 13.2 % Normal 11.9-15.3 [facility] Comment on above: Performed By: #### L IPASE, PT, CBC, PTT, CMP #### [address] Hematocrit (Bld) [Volume fraction] 29.0 % Low 34.0-46.4 [facility] Comment on above: Performed By: #### L IPASE, PT, CBC, PTT, CMP #### [address] Hemoglobin (Bld) [Mass/Vol] 9.8 g/dL Low 11.8-15.4 [facility] Comment on above: Performed By: #### L IPASE, PT, CBC, PTT, CMP #### [address] Lymphocytes (Bld) [#/Vol] 2.9 10*3/uL Normal 1.00-4.8 [facility] Comment on above: Performed By: #### L IPASE, PT, CBC, PTT, CMP #### [address] Lymphocytes/100 WBC (Bld) 24.8 % Normal . [facility] Comment on above: Performed By: #### L IPASE, PT, CBC, PTT, CMP #### [address] MCH (RBC) [Entitic mass] 28.8 pg Normal 24.7-34.3 [facility] Comment on above: Performed By: #### L IPASE, PT, CBC, PTT, CMP #### [address] MCV (RBC) [Entitic vol] 85.3 fL Normal 80-100 [facility] Comment on above: Performed By: #### L IPASE, PT, CBC, PTT, CMP #### [address] Mean Corpuscular HGB Conc 33.7 g/dL Normal 32.0-35.0 [facility] Comment on above: Performed By: #### L IPASE, PT, CBC, PTT, CMP #### [address] Monocytes (Bld) [#/Vol] 0.8 10*3/uL Normal 0.0-0.8 [facility] Comment on above: Performed By: #### L IPASE, PT, CBC, PTT, CMP #### [address] Monocytes/100 WBC (Bld) 6.6 % Normal . [facility] Comment on above: Performed By: #### L IPASE, PT, CBC, PTT, CMP #### [address] Neutrophils (Bld) [#/Vol] 7.9 10*3/uL High 1.8-7.7 [facility] Comment on above: Performed By: #### L IPASE, PT, CBC, PTT, CMP #### [address] Neutrophils/100 WBC (Bld) 67.9 % Normal . [facility] Comment on above: Performed By: #### L IPASE, PT, CBC, PTT, CMP #### [place] [address] [place] Nucleated RBC/100 WBC (Bld) [Ratio] 0.1 % Normal 0-0.5 [facility] Comment on above: Performed By: #### L IPASE, PT, CBC, PTT, CMP #### [address] Platelet mean volume (Bld) [Entitic vol] 8.0 fL Normal 6.3-10.7 [facility] Comment on above: Performed By: #### L IPASE, PT, CBC, PTT, CMP #### [facility] [address] Platelets (Bld) [#/Vol] 471 10*3/uL High 150-450 [facility] Comment on above: Performed By: #### L IPASE, PT, CBC, PTT, CMP #### [address] RBC (Bld) [#/Vol] 3.40 10*6/uL Low 3.60-5.00 [facility] Comment on above: Performed By: #### L IPASE, PT, CBC, PTT, CMP #### [address] WBC (Bld) [#/Vol] 11.7 10*3/uL High 4.5-11.0 [facility] Comment on above: Performed By: #### L IPASE, PT, CBC, PTT, CMP #### [address] Comprehensive Metabolic Pane eagle 03-27-2022 Albumin [Mass/Vol] 3.5 g/dL Normal 3.2-5.5 [facility] Comment on above: Performed By: #### C BC, MG, CMP, ESR, LIPASE, TSH3 #### [address] Albumin/Globulin [Mass ratio] 1.2 {ratio} Normal [facility] Comment on above: Performed By: #### C BC, MG, CMP, ESR, LIPASE, TSH3 #### [address] ALP [Catalytic activity/Vol] 69 U/L Normal 32-92 [facility] Comment on above: Performed By: #### C BC, MG, CMP, ESR, LIPASE, TSH3 #### [address] ALT [Catalytic activity/Vol] 34 U/L Normal 10-60 [facility] Comment on above: Performed By: #### C BC, MG, CMP, ESR, LIPASE, TSH3 #### [facility] [address] [place] [address] Anion gap [Moles/Vol] 12.7 mmol/L Normal 6.0-15.[address] [facility] Comment on above: Performed By: #### C BC, MG, CMP, ESR, LIPASE, TSH3 #### [address] AST [Catalytic activity/Vol] 22 U/L Normal 10-42 [facility] Comment on above: Performed By: #### C BC, MG, CMP, ESR, LIPASE, TSH3 #### [address] Bilirubin [Mass/Vol] 0.3 mg/dL Normal 0.3-1.2 [facility] Comment on above: Performed By: #### C BC, MG, CMP, ESR, LIPASE, TSH3 #### [address] Calcium [Mass/Vol] 9.1 mg/dL Normal 8.2-10.2 [facility] Comment on above: Performed By: #### C BC, MG, CMP, ESR, LIPASE, TSH3 #### [address] Chloride [Moles/Vol] 98 mmol/L Normal 95-114 [facility] Comment on above: Performed By: #### C BC, MG, CMP, ESR, LIPASE, TSH3 #### [address] CO2 [Moles/Vol] 24.3 mmol/L Normal 22.0-30.0 [facility] Comment on above: Performed By: #### C BC, MG, CMP, ESR, LIPASE, TSH3 #### [address] Creatinine [Mass/Vol] 0.82 mg/dL Normal 0.44-1.03 [facility] Comment on above: Performed By: #### C BC, MG, CMP, ESR, LIPASE, TSH3 #### [address] Creatinine Clr Calc Pharmacy 75.74 [facility] Comment on above: Performed By: #### C BC, MG, CMP, ESR, LIPASE, TSH3 #### [address] Estimated GFR ( Letty > 60 [facility] Comment on above: Result Comment: GFR estimated reference range: According to KDOQI guidelines, <60 ml/min/1.73m2 is sufficient to diagnose a patient with chronic kidney disease. Performed By: #### C BC, MG, CMP, ESR, LIPASE, TSH3 #### [address] Estimated GFR (Non- Am > 60 [facility] Comment on above: Performed By: #### C BC, MG, CMP, ESR, LIPASE, TSH3 #### [address] Globulin (S) [Mass/Vol] 2.9 g/dL [facility] Comment on above: Performed By: #### C BC, MG, CMP, ESR, LIPASE, TSH3 #### [address] Glucose [Mass/Vol] 111 mg/dL High 70-100 [facility] Comment on above: Result Comment: [place] Glucose Reference Range is dependent on time and content of last meal. Glucose of more than 200 mg/dL in a nonstressed, ambulatory subject supports the diagnosis of Diabetes Mellitus. ADA recommended reference range Performed By: #### C BC, MG, CMP, ESR, LIPASE, TSH3 #### [address] Potassium [Moles/Vol] 3.0 mmol/L Low 3.5-5.1 [facility] Comment on above: Performed By: #### C BC, MG, CMP, ESR, LIPASE, TSH3 #### [address] Protein [Mass/Vol] 6.4 g/dL Normal 6.1-7.9 [facility] Comment on above: Performed By: #### C BC, MG, CMP, ESR, LIPASE, TSH3 #### [facility] [address] Sodium [Moles/Vol] 132 mmol/L Low 136-146 [facility] Comment on above: Performed By: #### C BC, MG, CMP, ESR, LIPASE, TSH3 #### [facility] [address] Urea nitrogen [Mass/Vol] 6 mg/dL Low 9-23 [facility] Comment on above: Performed By: #### C BC, MG, CMP, ESR, LIPASE, TSH3 #### [address] Creatinine and Glomerular fi ltration rate.predicted panel (S/P/Bld)Ordered By: Dominik Vanegas on 03-27-2022 Creatinine [Mass/Vol] 0.82 mg/dL 0.44-1.03 [facility] Dipstick and Microscopicon 1 Appearance (U) Cloudy Critically abnormal Clear [facility] Comment on above: Order Comment: Name Collection Type:: Clean-Voided Midstream Performed By: #### C BC, MG, CMP, ESR, LIPASE, TSH3 #### [facility] [address] Bacteria,Urine 4+ High None Seen [facility] Comment on above: Order Comment: Name Collection Type:: Clean-Voided Midstream Performed By: #### C BC, MG, CMP, ESR, LIPASE, TSH3 #### [facility] [address] [place] [address] [place] Bilirubin,Urine Negative Normal Negative [facility] Comment on above: Order Comment: Name Collection Type:: Clean-Voided Midstream Performed By: #### C BC, MG, CMP, ESR, LIPASE, TSH3 #### [facility] [address] Color (U) Dark Yellow Critically abnormal Yellow [facility] Comment on above: Order Comment: Name Collection Type:: Clean-Voided Midstream Performed By: #### C BC, MG, CMP, ESR, LIPASE, TSH3 #### [facility] [address] [place] [address] Glucose Ql (U) Normal Normal Normal [facility] Comment on above: Order Comment: Name Collection Type:: Clean-Voided Midstream Performed By: #### C BC, MG, CMP, ESR, LIPASE, TSH3 #### [address] Hyaline Casts,Urine None Seen Normal 0-1 [facility] Comment on above: Order Comment: Name Collection Type:: Clean-Voided Midstream Performed By: #### C BC, MG, CMP, ESR, LIPASE, TSH3 #### [address] Ketones Ql (U) 1+ High Negative [facility] Comment on above: Order Comment: Name Collection Type:: Clean-Voided Midstream Performed By: #### C BC, MG, CMP, ESR, LIPASE, TSH3 #### [facility] [address] [place] [address] Leukocyte esterase Test strip Ql (U) 4+ High Negative [facility] Comment on above: Order Comment: Name Collection Type:: Clean-Voided Midstream Performed By: #### C BC, MG, CMP, ESR, LIPASE, TSH3 #### [facility] [address] [place] [address] Nitrite,Urine Positive High Negative [facility] Comment on above: Order Comment: Name Collection Type:: Clean-Voided Midstream Performed By: #### C BC, MG, CMP, ESR, LIPASE, TSH3 #### [facility] [address] [place] [address] [place] Occult Blood,Urine Trace High Negative [facility] Comment on above: Order Comment: Name Collection Type:: Clean-Voided Midstream Performed By: #### C BC, MG, CMP, ESR, LIPASE, TSH3 #### [address] Other Casts,Urine None Seen Normal None Seen [facility] Comment on above: Order Comment: Name Collection Type:: Clean-Voided Midstream Performed By: #### C BC, MG, CMP, ESR, LIPASE, TSH3 #### [address] pH (U) 6.0 [pH] Normal 5.0-9.0 [facility] Comment on above: Order Comment: Name Collection Type:: Clean-Voided Midstream Performed By: #### C BC, MG, CMP, ESR, LIPASE, TSH3 #### [address] Protein (U) [Mass/Vol] 30 mg/dL High Negative [facility] Comment on above: Order Comment: Name Collection Type:: Clean-Voided Midstream Performed By: #### C BC, MG, CMP, ESR, LIPASE, TSH3 #### [facility] [address] [place] [address] RBC,Urine 10-19 High 0-4 [facility] Comment on above: Order Comment: Name Collection Type:: Clean-Voided Midstream Performed By: #### C BC, MG, CMP, ESR, LIPASE, TSH3 #### [address] Specificy [place],Urine 1.020 Normal 1.001-1.03 0 [facility] Comment on above: Order Comment: Name Collection Type:: Clean-Voided Midstream Performed By: #### C BC, MG, CMP, ESR, LIPASE, TSH3 #### [address] Squamous Epithelial Cell,Urine 10-19 High 0-2 [facility] Comment on above: Order Comment: Name Collection Type:: Clean-Voided Midstream Performed By: #### C BC, MG, CMP, ESR, LIPASE, TSH3 #### [address] Urobilinogen,Urine Normal Normal Normal [facility] Comment on above: Order Comment: Name Collection Type:: Clean-Voided Midstream Performed By: #### C BC, MG, CMP, ESR, LIPASE, TSH3 #### [facility] [address] WBC,Urine Innumerable High 0-4 [facility] Comment on above: Order Comment: Name Collection Type:: Clean-Voided Midstream Performed By: #### C BC, MG, CMP, ESR, LIPASE, TSH3 #### [facility] [address] Eosinophils Auto (Bld) [#/Vo l]Ordered By: Dominik Vanegas on 03-27-2022 Eosinophils (Bld) [#/Vol] 0.0 10*3/uL 0.0-0.45 [facility] Eosinophils/100 WBC Auto (Bl d)Ordered By: Dominik Vanegas on 03-27-2022 Eosinophils/100 WBC (Bld) 0.3 % . [facility] Erythrocyte distribution wid th Auto (RBC) [Ratio]Ordered By: Dominik Vanegas on 03-27-2022 Erythrocyte distribution width (RBC) [Ratio] 13.2 % 11.9-15.3 [facility] Estimated glomerular filtrat ion rate (GFR) non- AmericanOrdered By: Dominik Vanegas on 03-27-2022 GFR/1.73 sq M.predicted among non-blacks MDRD (S/P/Bld) [Vol rate/Area] > 60 mL/Min [facility] Globulin Calc (S) [Mass/Vol] Ordered By: Dominik Vanegas on 03-27-2022 Globulin (S) [Mass/Vol] 2.9 g/dL [facility] HCG ( test) IA.rapi d Ql (U)Ordered By: Dominik Vanegas on 03-27-2022 HCG ( test) Ql (U) Negative [facility] HCG,Urineon 03-27-2022 Beta HCG ( test) Ql (U) Negative Normal [facility] Comment on above: Order Comment: Name Collection Type:: Clean-Voided Midstream Result Comment: PERF ORMED BY: [place] [id number] PATHOLOGIST [employer] RADHA GARCIA M.D. Performed By: #### C BC, MG, CMP, ESR, LIPASE, TSH3 #### [facility] [address] [place] [address] Hematocrit Auto (Bld) [Volum e fraction]Ordered By: Dominik Vanegas on 03-27-2022 Hematocrit (Bld) [Volume fraction] 29.0 % 34.0-46.4 [facility] Ketones Auto test strip (U) [Mass/Vol]Ordered By: Dominik Vanegas on 03-27-2022 Ketones (U) [Mass/Vol] 1+ Negative Fi [facility] - Chemistry and C hemistry - challengeOrdered By: Dominik Vanegas on 03-27-2022 Lipase [Catalytic activity/Vol] 31.0 U/L [facility] Laboratory - CoagulationOrde red By: Dominik Vanegas on 03-27-2022 PT Coag (PPP) [Time] 12.4 s 9.0-12.9 [facility] - Hematology and Cell countsOrdered By: Dominik Vanegas on 03-27-2022 Nucleated RBC/100 WBC (Bld) [Ratio] 0.1 % 0-0.5 [facility] Lipaseon 03-27-2022 Lipase [Catalytic activity/Vol] 31.0 U/L Normal [facility] Comment on above: Result Comment: PERF ORMED BY: [place] [id number] PATHOLOGIST [employer] RADHA GARCIA M.D. Performed By: #### C BC, MG, CMP, ESR, LIPASE, TSH3 #### [address] Lymphocytes Auto (Bld) [#/Vo l]Ordered By: Dominik Vanegas on 03-27-2022 Lymphocytes (Bld) [#/Vol] 2.9 10*3/uL 1.00-4.8 [facility] Lymphocytes/100 WBC Auto (Bl d)Ordered By: Dominik Vanegas on 03-27-2022 Lymphocytes/100 WBC (Bld) 24.8 % . [facility] MCH Auto (RBC) [Entitic mass ]Ordered By: Dominik Vanegas on 03-27-2022 MCH (RBC) [Entitic mass] 28.8 pg 24.7-34.3 [facility] MCHC Auto (RBC) [Mass/Vol]Or dered By: Dominik Vanegas on 03-27-2022 MCHC (RBC) [Mass/Vol] 33.7 g/dL 32.0-35.0 [facility] MCV Auto (RBC) [Entitic vol] Ordered By: Dominik Vanegas on 03-27-2022 MCV (RBC) [Entitic vol] 85.3 fL 80-100 [facility] Monocytes Auto (Bld) [#/Vol] Ordered By: Dominik Vanegas on 03-27-2022 Monocytes (Bld) [#/Vol] 0.8 10*3/uL 0.0-0.8 [facility] Monocytes/100 WBC Auto (Bld) Ordered By: Dominik Vanegas on 03-27-2022 Monocytes/100 WBC (Bld) 6.6 % . [facility] Neutrophils Auto (Bld) [#/Vo l]Ordered By: Dominik Vaengas on 03-27-2022 Neutrophils (Bld) [#/Vol] 7.9 10*3/uL 1.8-7.7 [facility] Neutrophils/100 WBC Auto (Bl d)Ordered By: Dominik Vanegas on 03-27-2022 Neutrophils/100 WBC (Bld) 67.9 % . [facility] Nitrite Test strip Ql (U)Ord ered By: Domniik Vanegas on 03-27-2022 Nitrite Ql (U) Positive Negative [facility] No Panel InformationOrdered By: Dominik Vanegas on 03-27-2022 Estimated GFR () > 60 mL/Min [facility] Comment on above: GFR estimated refere nce range: According to KDOQI guidelines, <60 ml/min/1.73m2 is sufficient to diagnose a patient with chronic kidney disease. Pharmacy Creatinine Clearance (Chem 75.74 [facility] Partial Thromboplastin Timeo n 03-27-2022 aPTT Coag (Bld) [Time] 27.8 s Normal 25.1-36.[address] [facility] Comment on above: Result Comment: PERF ORMED BY: [place] [address] PATHOLOGIST [employer] RADHA GARCIA M.D. Performed By: #### L IPASE, PT, CBC, PTT, CMP #### [address] Platelet mean volume Auto (B ld) [Entitic vol]Ordered By: Dominik Vanegas on 03-27-2022 Platelet mean volume (Bld) [Entitic vol] 8.0 fL 6.3-10.7 [facility] Platelet poor plasma interna tional normalized ratio (INR) by coagulation assay (relatOrdered By: Dominik Vanegas on 03-27-2022 INR Coag (PPP) [Relative time] 1.1 {INR} [facility] Comment on above: INR Therapeutic Rang e [...] 03-27-2022 Platelets (Bld) [#/Vol] 471 10*3/uL 150-450 [facility] Protein Auto test strip (U) [Mass/Vol]Ordered By: Dominik Vanegas on 03-27-2022 Protein (U) [Mass/Vol] 30 mg/dL Negative Fi [facility] Protein [Mass/volume] in Ser um or PlasmaOrdered By: Dominik Vanegas on 03-27-2022 Protein [Mass/Vol] 6.4 g/dL 6.1-7.9 [facility] Prothrombin Time INRon 03-27 INR Coag (PPP) [Relative time] 1.1 {INR} Normal [facility] Comment on above: Result Comment: INR Therapeutic [...] L IPASE, PT, CBC, PTT, CMP #### [facility] [address] PT Coag (PPP) [Time] 12.4 s Normal 9.0-12.9 [facility] Comment on above: Performed By: #### L IPASE, PT, CBC, PTT, CMP #### [facility] [address] RBC Auto (Bld) [#/Vol]Ordere d By: Dominik Vanegas on 03-27-2022 RBC (Bld) [#/Vol] 3.40 10*6/uL 3.60-5.00 [facility] Serum or plasma alanine carlos otransferase measurement without P-5'-P (enzymatic activiOrdered By: Dominik Vanegas on 03-27-2022 ALT No additional P-5'-P [Catalytic activity/Vol] 34 U/L [facility] Serum or plasma albumin/glob ulin mass ratioOrdered By: Dominik Vanegas on 03-27-2022 Albumin/Globulin [Mass ratio] 1.2 {ratio} [facility] Serum or plasma alkaline belkys sphatase measurement (enzymatic activity/volume)Ordered By: Dominik Vanegas on 03-27-2022 ALP [Catalytic activity/Vol] 69 U/L 32-92 [facility] Serum or plasma anion gap de terminationOrdered By: Dominik Vanegas on 03-27-2022 Anion gap [Moles/Vol] 12.7 mmol/L 6.0-15.[address] [facility] Serum or plasma aspartate am inotransferase measurement (enzymatic activity/volume)Ordered By: Dominik Vanegas on 03-27-2022 AST [Catalytic activity/Vol] 22 U/L [facility] Serum or plasma calcium mariana urement (mass/volume)Ordered By: Dominik Vanegas on 03-27-2022 Calcium [Mass/Vol] 9.1 mg/dL 8.2-10.2 [facility] Serum or plasma chloride jaqui surement (moles/volume)Ordered By: Dominik Vanegas on 03-27-2022 Chloride [Moles/Vol] 98 mmol/L 95-114 [facility] Serum or plasma glucose mariana urement (mass/volume)Ordered By: Dominik Vanegas on 03-27-2022 Glucose [Mass/Vol] 111 mg/dL 70-100 [facility] Comment on above: ADA recommended refe rence rangeRandom Glucose Reference Range is dependent on time and content of last meal. Glucose of more than 200 mg/dL in a nonstressed, ambulatory subject supports the diagnosis of Diabetes Mellitus. Serum or plasma potassium me asurement (moles/volume)Ordered By: Dominik Vanegas on 03-27-2022 Potassium [Moles/Vol] 3.0 mmol/L 3.5-5.1 [facility] Serum or plasma sodium measu rement (moles/volume)Ordered By: Dominik Vanegas on 03-27-2022 Sodium [Moles/Vol] 132 mmol/L 136-146 [facility] Serum or plasma total biliru bin measurement (mass/volume)Ordered By: Dominik Vanegas on 03-27-2022 Bilirubin [Mass/Vol] 0.3 mg/dL 0.3-1.2 [facility] Serum or plasma total carbon dioxide measurement (moles/volume)Ordered By: Dominik Vanegas on 03-27-2022 CO2 [Moles/Vol] 24.3 mmol/L 22.0-30.0 [facility] Serum or plasma urea nitroge n measurement (mass/volume)Ordered By: Dominik Vanegas on 03-27-2022 Urea nitrogen [Mass/Vol] 6 mg/dL 9- [facility] Specific gravity Auto test s trip (U) [Rel density]Ordered By: Dominik Vanegas on 03-27-2022 Specific gravity (U) [Rel density] 1.020 1.001-1.03 0 [facility] Squamous epithelial cells de tection in urine sediment by light microscopyOrdered By: Dominik Vanegas on 03-27-2022 Epithelial cells.squamous LM Ql (Urine sed) 04-14 [HPF] 0-2 [facility] Type and Screenon 03-27-2022 ABO and Rh group Nom (Bld) Blood group O Rh(D) positive [facility] Comment on above: Result Comment: PERF ORMED BY: [facility] [address] [place] [address] PATHOLOGIST [employer] RADHA GARCIA M.D. Urine Cultureon 03-27-2022 Bacteria identified Cx Nom (U) ORGANISM: Escherichia coli (ESBL) (O:ESCCOLESBL) [place] Count >100,000 Aerobic DIVYA Charge (NUC86) SUSCEPTIBILITY [...] RESISTANT TO ALL B-LACTAM DRUGS. PERFORMED BY: [facility] [address] [place] [address] PATHOLOGIST [employer] RADHA GARCIA M.D. [facility] Comment on above: Performed By: #### C BC, MG, CMP, ESR, LIPASE, TSH3 #### [address] Urine bacteria detection by automated methodOrdered By: Dominik Vanegas on 03-27-2022 Bacteria Auto Ql (U) 4+ None Seen [facility] Urine clarity by refractomet ry automatedOrdered By: Dominik Vanegas on 03-27-2022 Clarity Refractometry automated (U) Cloudy Clear [facility] Urine glucose measurement by automated test strip (mass/volume)Ordered By: Dominik Vanegas on 03-27-2022 Glucose Auto test strip (U) [Mass/Vol] Normal mg/dL Normal [facility] Urine hemoglobin detection b y automated test stripOrdered By: Dominik Vanegas on 03-27-2022 Hemoglobin Auto test strip Ql (U) Trace Negative [facility] Urine leukocyte esterase det ection by automated test stripOrdered By: Dominik Vanegas on 03-27-2022 Leukocyte esterase Auto test strip Ql (U) 4+ Negative [facility] Urobilinogen Auto test strip (U) [Mass/Vol]Ordered By: Dominik Vanegas on 03-27-2022 Urobilinogen (U) [Mass/Vol] Normal mg/dL Normal [facility] pH Auto test strip (U)Ordere d By: Dominik Vanegas on 03-27-2022 pH (U) 6.0 [pH] 5.0-9.0 [facility] XR KUB 1 VIEWon 02-16-2022 XR KUB [...] DEVYN DIETZ Date: 2022-02-16 18:37 Normal [facility] PREG HCG QUALon 01-07-2022 , QUAL Negative Normal NEGATIVE [facility] Comment on above: Performed By: #### P REG #### [facility] [address] [place] [address] Dr. Tori Thomas XR KUB 1 VIEWon [...] DEVYN DIETZ Date: 2022-01-07 10:45 Normal [facility] CBC AUTO DIFFon 01-06-2022 BASO # 0.0 103/ul Normal 0.0-0.1 [facility] Comment on above: Performed By: #### U AMIC #### [facility] [address] [address] [address] Tori Thomas Basophils/100 WBC (Bld) 0.3 % Normal 0.2-2.0 [facility] Comment on above: Performed By: #### U AMIC #### [facility] [address] [address] [address] Tori Thomas EO # 0.1 103/ul Normal 0.0-0.7 [facility] Comment on above: Performed By: #### U AMIC #### [facility] [address] [place] [address] Dr. Tori Thomas Eosinophils/100 WBC (Bld) 0.9 % Normal 0.9-7.0 [facility] Comment on above: Performed By: #### U AMIC #### [facility] [address] [address] [address] Tori Thomas Erythrocyte distribution width (RBC) [Ratio] 17.7 % Critically high 11.0-15.0 [facility] Comment on above: Performed By: #### U AMIC #### [facility] [address] [address] [address] Tori Thomas Hematocrit (Bld) [Volume fraction] 35.8 % Critically low 36.0-48.0 [facility] Comment on above: Performed By: #### U AMIC #### [facility] [address] [address] [address] Tori Thomas Hemoglobin (Bld) [Mass/Vol] 11.7 g/dL Critically low 12.0-16.0 [facility] Comment on above: Performed By: #### U AMIC #### [facility] [address] [address] [address] Tori Thomas IG # 0.06 10e3/ul Critically high 0.00-0.03 [facility] Comment on above: Performed By: #### U AMIC #### [facility] [address] [address] [address] Tori Thomas IG % 0.6 % Critically high 0.0-0.5 [facility] Comment on above: Performed By: #### U AMIC #### [facility] [address] [place] [address] Dr. Tori Thomas LYMPH # 2.0 103/ul Normal 1.2-3.8 [facility] Comment on above: Performed By: #### U AMIC #### [facility] [address] [place] [address] Dr. Tori Thomas Lymphocytes/100 WBC (Bld) 19.8 % Critically low 20.5-60.0 [facility] Comment on above: Performed By: #### U AMIC #### [facility] [address] [place] [address] Dr. Tori Thomas MANUAL DIFF REQ NO Normal [facility] Comment on above: Performed By: #### U AMIC #### [facility] [address] [place] [address] Dr. Tori Thomas MCH (RBC) [Entitic mass] 29.5 pg Normal 26.7-34.0 [facility] Comment on above: Performed By: #### U AMIC #### [facility] [address] [place] [address] Dr. Tori Thomas MCHC (RBC) [Mass/Vol] 32.7 g/dL Normal 29.9-35.2 [facility] Comment on above: Performed By: #### U AMIC #### [facility] [address] [address] [address] Tori Thomas MCV (RBC) [Entitic vol] 90.2 fL Normal 81.0-99.0 [facility] Comment on above: Performed By: #### U AMIC #### [facility] [address] [address] [address] Tori Thomas MONO # 0.6 103/ul Normal 0.3-0.8 [facility] Comment on above: Performed By: #### U AMIC #### [facility] [address] [address] [address] oTri Thomas Monocytes/100 WBC (Bld) 5.9 % Normal 1.7-12.0 [facility] Comment on above: Performed By: #### U AMIC #### [facility] [address] [place] [address] Dr. Tori Thomas NEUT # 7.2 103/ul Critically high 1.4-6.5 [facility] Comment on above: Performed By: #### U AMIC #### [facility] [address] [place] [address] Dr. Tori Thomas Neutrophils/100 WBC (Bld) 72.5 % Normal 43.0-75.0 [facility] Comment on above: Performed By: #### U AMIC #### [facility] [address] [place] [address] Dr. Tori Thomas Platelet mean volume (Bld) [Entitic vol] 9.5 fL Normal 9.5-13.5 [facility] Comment on above: Performed By: #### U AMIC #### [facility] [address] [place] [address] Dr. Tori Thomas PLT 319 103/ul Normal 150-450 [facility] Comment on above: Performed By: #### U AMIC #### [facility] [address] [address] [address] Tori Thomas RBC 3.97 106/ul Critically low 4.20-5.40 [facility] Comment on above: Performed By: #### U AMIC #### [facility] [address] [address] [address] Tori Thomas WBC 10.0 103/ul Normal 4.0-11.0 [facility] Comment on above: Performed By: #### U AMIC #### [facility] [address] [place] [address] Dr. Tori Thomas PROF CHEM 8 (BAS METB)on Anion gap [Moles/Vol] 13.7 mmol/L Normal Th [facility] Comment on above: Performed By: #### P T, PTT #### [facility] [address] [place] [address] Dr. Tori Thomas Calcium [Mass/Vol] 9.1 mg/dL Normal 8.5-10.1 [facility] Comment on above: Performed By: #### P T, PTT #### [facility] [address] [place] [address] Dr. Tori Thomas Chloride [Moles/Vol] 104 mmol/L Normal 98-107 [facility] Comment on above: Performed By: #### P T, PTT #### [facility] [address] [place] [address] Dr. Tori Thomas CO2 [Moles/Vol] 23.0 mmol/L Normal 21.0-32.0 [facility] Comment on above: Performed By: #### P T, PTT #### [facility] [address] [place] [address] Dr. Tori Thomas Creatinine [Mass/Vol] 0.98 mg/dL Normal 0.55-1.02 [facility] [facility] Comment on above: Performed By: #### P T, PTT #### [facility] [address] [place] [address] Dr. Tori Thomas EGFR-AF MAURITANIAN >60 Normal >=60 [facility] Comment on above: Performed By: #### P T, PTT #### [facility] [address] [place] [address] Dr. Tori Thomas EGFR-NON AF MAURITANIAN >60 Normal >=60 [facility] Comment on above: Performed By: #### P T, PTT #### [facility] [address] [address] [address] Tori Thomas Glucose [Mass/Vol] 109 mg/dL Critically high 74-106 T [place] Comment on above: Performed By: #### P T, PTT #### [facility] [address] [place] [address] Dr. Tori Thomas Potassium [Moles/Vol] 3.7 mmol/L Normal 3.5-5.1 [facility] Comment on above: Performed By: #### P T, PTT #### [facility] [address] [address] [address] Tori Thomas Sodium [Moles/Vol] 137 mmol/L Normal 136-145 [facility] Comment on above: Performed By: #### P T, PTT #### [facility] [address] [place] [address] Dr. Tori Thomas Urea nitrogen [Mass/Vol] 12.0 mg/dL Normal 7.0-18.0 [facility] Comment on above: Performed By: #### P T, PTT #### [facility] [address] [place] [address] Dr. Tori Thomas Urea nitrogen/Creatinine [Mass ratio] 12.2 mg/mg Normal [facility] Comment on above: Performed By: #### P T, PTT #### [facility] [address] [place] [address] Dr. Tori Thomas PROTIMEon 01-06-2022 INR Coag (PPP) [Relative time] 0.94 {INR} Normal [facility] Comment on above: Performed By: #### P T, PTT #### [facility] [address] [place] [address] Dr. Tori Thomas INR GUIDELINES SEE BELOW Normal [facility] Comment on above: Result Comment: APRYL RED INR: 2.0 - 3.0 CONDITIONS NOT LISTED BELOW 2.5 - 3.5 FOR PROSTHETIC HEART VALVE REPLACEMENT 2.5 - 3.5 RECURRENT THROMBOSIS Performed By: #### P T, PTT #### [facility] [address] [place] [address] Dr. Tori Tohmas PT Coag (PPP) [Time] 10.2 s Normal 9.0-11.6 [facility] Comment on above: Performed By: #### P T, PTT #### [facility] [address] [place], [place] [address] Dr. Tori Thomas PTTon 01-06-2022 aPTT Coag (Bld) [Time] 24.2 s Normal 22.3-36.2 Th e [facility] Comment on above: Performed By: #### P T, PTT #### [facility] [address] [place], [place] [address] ABD/PELVIS WO CONon [...] by: DEVYN DIETZ Date: 2021-12-23 08:35 Normal [facility] Vital Signs Date Time Vital Sign Value Performing Clinician Facility 10-06-2022 14:53-0400 Blood Pressure Location TISH KENDALL [facility] 10-06-2022 14:53-0400 Diastolic blood pressure 74 mm[Hg] TISH FAVIAN [facility] 10-06-2022 14:53-0400 Heart rate 68 /min TISHMARIELA HARVEYRY [facility] 10-06-2022 14:53-0400 Respiratory rate 16 /min TISH FAVIAN [facility] 10-06-2022 14:53-0400 Systolic blood pressure 120 mm[Hg] TISH HARVEYRY [facility] 10-01-2022 10:45-0400 65 1 Chandrika M Hoy Work Phone: [facility] [address] [place] Work Phone: Comment on above: [id number] 09-03-2022 13:10-0500 Body height 160.02 cm Chandrika M Hoy Work Phone: [facility] [address] [place] Work Phone: 09-03-2022 13:10-0500 Body mass index (BMI) [Ratio] 22.85 kg/m2 Chandrika M Hoy Work Phone: [facility] [address] DO Work Phone: 09-03-2022 13:10-0500 Body surface area Derived from formula 1.6 m2 Chandrika M Hoy Work Phone: [facility] [address] DO Work Phone: 09-03-2022 13:10-0500 Body weight 58.51 kg Chandrika Holland Hoy Work Phone: [facility] [address] DO Work Phone: 09-03-2022 13:10-0500 Diastolic blood pressure 60 mm[Hg] Chandrika Holland Hoy Work Phone: [facility] [address] DO Work Phone: 09-03-2022 13:10-0500 Heart rate 82 /min Chandrika Holland Hoy Work Phone: [facility] [address] DO Work Phone: 09-03-2022 13:10-0500 Systolic blood pressure 102 mm[Hg] Chandrika Holland Hoy Work Phone: [facility] [address] DO Work Phone: 08-17-2022 14:55-0500 Diastolic blood pressure 78 mm[Hg] MD Chandrika Lee Work Phone: [facility] 08-17-2022 14:55-0500 Heart rate 77 /min MD Chandrika Lee Work Phone: [facility] 08-17-2022 14:55-0500 Respiratory rate 16 /min MD Chandrika Lee Work Phone: [facility] 08-17-2022 14:55-0500 SaO2% (BldA) [Mass fraction] 96 % MD Chandrika Lee Work Phone: [facility] 08-17-2022 14:55-0500 Systolic blood pressure 119 mm[Hg] MD Chandrika Lee Work Phone: [facility] 08-17-2022 12:57-0500 Body height 160.02 cm MD Chandrika Lee Work Phone: [facility] 08-17-2022 12:57-0500 Body mass index (BMI) [Ratio] 22.6 kg/m2 MD Chandrika Lee Work Phone: [facility] 08-17-2022 12:57-0500 Body weight 58.05 kg MD Chandrika Lee Work Phone: [facility] 08-17-2022 11:43-0500 Body temperature 98.7 [degF] MD Chandrika Lee Work Phone: [facility] 08-02-2022 15:15-0500 Diastolic blood pressure 55 mm[Hg] MD Chandrika Lee Work Phone: [facility] 08-02-2022 15:15-0500 Heart rate 96 /min MD Chandrika Lee Work Phone: [facility] 08-02-2022 15:15-0500 Respiratory rate 16 /min MD Chandrika Lee Work Phone: [facility] 08-02-2022 15:15-0500 SaO2% (BldA) [Mass fraction] 95 % MD Chandrika Lee Work Phone: [facility] 08-02-2022 15:15-0500 Systolic blood pressure 100 mm[Hg] MD Chandrika Lee Work Phone: [facility] 08-02-2022 14:33-0500 Body mass index (BMI) [Ratio] 24.5 kg/m2 MD Chandrika Lee Work Phone: [facility] 08-02-2022 11:15-0500 Body height 160.02 cm MD Chandrika Lee Work Phone: [facility] 08-02-2022 11:15-0500 Body weight 63 kg MD Chandrika Lee Work Phone: [facility] 08-02-2022 10:21-0500 Body temperature 97.9 [degF] MD Chandrika Lee Work Phone: [facility] 07-26-2022 11:06-0500 Diastolic blood pressure 64 mm[Hg] Chandrika Lee Work Phone: [facility] [address] DO Work Phone: 07-26-2022 11:06-0500 Systolic blood pressure 100 mm[Hg] Chandrika Amalia Hoy Work Phone: [facility] [address] DO Work Phone: 07-26-2022 11:05-0500 Body height 160.02 cm Chandrika M Hoy Work Phone: [facility] [address] DO Work Phone: 07-26-2022 11:05-0500 Body mass index (BMI) [Ratio] 24.93 kg/m2 Chandrika Amalia Hoy Work Phone: [facility] [address] DO Work Phone: 07-26-2022 11:05-0500 Body surface area Derived from formula 1.67 m2 Chandrika Amalia Hoy Work Phone: [facility] [address] DO Work Phone: 07-26-2022 11:05-0500 Body weight 63.84 kg Chandrika Holland Hoy Work Phone: [facility] [address] Work Phone: 07-26-2022 11:05-0500 Diastolic blood pressure 70 mm[Hg] Chandrika Amalia Hoy Work Phone: [facility] [address] DO Work Phone: 07-26-2022 11:05-0500 Heart rate 50 /min Chandrika Amalia Hoy Work Phone: [facility] [address] DO Work Phone: 07-26-2022 11:05-0500 Systolic blood pressure 104 mm[Hg] Chandrika Amalia Hoy Work Phone: [facility] [address] DO Work Phone: 06-14-2022 16:09-0500 Diastolic blood pressure 61 mm[Hg] MD Chandrika Hoy Work Phone: [facility] 12-19-2022 16:09-0500 Heart rate 79 /min MD Chandrika Lee Work Phone: [facility] 06-14-2022 16:09-0500 Respiratory rate 16 /min MD Chandrika Lee Work Phone: [facility] 06-14-2022 16:09-0500 SaO2% (BldA) [Mass fraction] 97 % MD Chandrika Lee Work Phone: [facility] 06-14-2022 16:09-0500 Systolic blood pressure 119 mm[Hg] MD Chandrika Lee Work Phone: [facility] 06-14-2022 13:41-0500 Body height 160.02 cm MD Chandrika Lee Work Phone: [facility] 06-14-2022 13:41-0500 Body temperature 97.9 [degF] MD Chandrika Lee Work Phone: [facility] 06-14-2022 13:41-0500 Body weight 61.23 kg MD Chandrika Lee Work Phone: [facility] 06-05-2022 04:08-0500 Body temperature 97.9 [degF] MD Chandrika Lee Work Phone: [facility] 06-05-2022 04:08-0500 Diastolic blood pressure 66 mm[Hg] MD Chandrika Lee Work Phone: [facility] 06-05-2022 04:08-0500 Heart rate 77 /min MD Chandrika Lee Work Phone: [facility] 06-05-2022 04:08-0500 Respiratory rate 18 /min MD Chandrika Lee Work Phone: [facility] 06-05-2022 04:08-0500 SaO2% (BldA) [Mass fraction] 96 % MD Chandrika Lee Work Phone: [facility] 06-05-2022 04:08-0500 Systolic blood pressure 123 mm[Hg] MD Chandrika Lee Work Phone: [facility] 05-30-2022 14:33-0500 Body temperature 98.3 [degF] MD Chandrika Lee Work Phone: [facility] 05-30-2022 14:33-0500 Diastolic blood pressure 72 mm[Hg] MD Chandrika Lee Work Phone: [facility] 05-30-2022 14:33-0500 Heart rate 93 /min MD Chandrika Lee Work Phone: [facility] 05-30-2022 14:33-0500 Respiratory rate 18 /min MD Chandrika Lee Work Phone: [facility] 05-30-2022 14:33-0500 SaO2% (BldA) [Mass fraction] 97 % MD Chandrika Lee Work Phone: [facility] 05-30-2022 14:33-0500 Systolic blood pressure 114 mm[Hg] MD Chandrika Lee Work Phone: [facility] 05-30-2022 11:29-0500 Body height 160.02 cm MD Chandrika Lee Work Phone: [facility] 05-30-2022 11:29-0500 Body weight 58 kg MD Chandrika Lee Work Phone: [facility] 05-12-2022 16:00-0500 Diastolic blood pressure 64 mm[Hg] MD Chandrika Lee Work Phone: [facility] 05-12-2022 16:00-0500 Heart rate 89 /min MD Chandrika Lee Work Phone: [facility] 05-12-2022 16:00-0500 Respiratory rate 18 /min MD Chandrika Lee Work Phone: [facility] 05-12-2022 16:00-0500 SaO2% (BldA) [Mass fraction] 97 % MD Chandrika Lee Work Phone: [facility] 05-12-2022 16:00-0500 Systolic blood pressure 118 mm[Hg] MD Chandrika Lee Work Phone: [facility] 05-11-2022 20:00-0500 Body temperature 97.6 [degF] MD Chandrika Lee Work Phone: [facility] 05-11-2022 05:52-0500 Body weight 57.9 kg MD Chandrika Lee Work Phone: [facility] 05-10-2022 12:05-0500 Body height 160.02 cm MD Chandrika Lee Work Phone: [facility] 04-05-2022 08:28-0400 Body temperature 97.9 [degF] MD Chandrika Lee Work Phone: [facility] 04-05-2022 08:28-0400 Diastolic blood pressure 58 mm[Hg] MD Chandrika Lee Work Phone: [facility] 04-05-2022 08:28-0400 Heart rate 79 /min MD Chandrika Lee Work Phone: [facility] 04-05-2022 08:28-0400 Respiratory rate 18 /min MD Chandrika Lee Work Phone: [facility] 04-05-2022 08:28-0400 SaO2% (BldA) [Mass fraction] 99 % MD Chandrika Lee Work Phone: [facility] 04-05-2022 08:28-0400 Systolic blood pressure 93 mm[Hg] MD Chandrika Lee Work Phone: [facility] 04-02-2022 11:24-0400 Body temperature 98.8 [degF] MD Chandrika Lee Work Phone: [facility] 04-02-2022 11:24-0400 Diastolic blood pressure 58 mm[Hg] MD Chandrika Lee Work Phone: [facility] 04-02-2022 11:24-0400 Heart rate 71 /min MD Chandrika Lee Work Phone: [facility] 04-02-2022 11:24-0400 Respiratory rate 18 /min MD Chandrika Lee Work Phone: [facility] 04-02-2022 11:24-0400 SaO2% (BldA) [Mass fraction] 98 % MD Chandrika Lee Work Phone: [facility] 04-02-2022 11:24-0400 Systolic blood pressure 95 mm[Hg] MD Chandrika Lee Work Phone: [facility] 04-02-2022 06:00-0400 Body weight 58.7 kg MD Chandrika Lee Work Phone: [facility] 04-01-2022 10:15-0400 Body height 157.48 cm MD Chandrika Lee Work Phone: [facility] 03-31-2022 14:00-0400 Diastolic blood pressure 62 mm[Hg] MD Chandrika Lee Work Phone: [facility] 03-31-2022 14:00-0400 Heart rate 87 /min MD Chandrika Lee Work Phone: [facility] 03-31-2022 14:00-0400 Respiratory rate 18 /min MD Chandrika Lee Work Phone: [facility] 03-31-2022 14:00-0400 SaO2% (BldA) [Mass fraction] 100 % MD Chandrika Lee Work Phone: [facility] 03-31-2022 14:00-0400 Systolic blood pressure 117 mm[Hg] MD Chandrika Lee Work Phone: [facility] 03-31-2022 11:17-0400 Body height 157.48 cm MD Chandrika Lee Work Phone: [facility] 03-31-2022 11:17-0400 Body temperature 98.1 [degF] MD Chandrika Lee Work Phone: [facility] 03-31-2022 11:17-0400 Body weight 58.96 kg MD Chandrika Lee Work Phone: [facility] 03-27-2022 15:41-0400 Diastolic blood pressure 70 mm[Hg] MD Chandrika Lee Work Phone: [facility] 03-27-2022 15:41-0400 Heart rate 84 /min MD Chandrika Lee Work Phone: [facility] 03-27-2022 15:41-0400 Respiratory rate 16 /min MD Chandrika Lee Work Phone: [facility] 03-27-2022 15:41-0400 SaO2% (BldA) [Mass fraction] 98 % MD Chandrika Lee Work Phone: [facility] 03-27-2022 15:41-0400 Systolic blood pressure 119 mm[Hg] MD Chandrika Lee Work Phone: [facility] 03-27-2022 11:37-0400 Body height 157.48 cm MD Chandrika Lee Work Phone: [facility] 03-27-2022 11:37-0400 Body temperature 98.2 [degF] MD Chandrika Lee Work Phone: [facility] 03-27-2022 11:37-0400 Body weight 58.96 kg MD Chandrika Lee Work Phone: [facility] 12-08-2021 10:58-0400 Blood Pressure Location TISHNIKUNJ KENDALL [facility] [place] 12-08-2021 10:58-0400 Diastolic blood pressure 82 mm[Hg] TISH FAVIAN [facility] [place] 12-08-2021 10:58-0400 Heart rate 81 /min TISH HARVEYRY [facility] [place] 12-08-2021 10:58-0400 Systolic blood pressure 103 mm[Hg] TISH KENDALL [facility] [place] Encounters Encounter Date Encounter Type Care Provider Facility Start: 06-03-2023 End: 06-04-2023 ambulatory Van SCHRADER Facility:CD:[id number] Start: 05-23-2023 End: 05-24-2023 ambulatory Van SCHRADER Facility:CD:[id number] Start: 05-10-2023 End: 05-11-2023 ambulatory PA-C TISH KENDALL Facility:[facility] [place] [place] Start: 04-12-2023 End: 04-13-2023 ambulatory PA-C TISH KENDALL Facility:[facility] [place] Start: 04-12-2023 End: 04-12-2023 Patient encounter procedure TISH KENDALL [facility] [place] Start: 11-15-2022 End: 11-16-2022 Emergency department patient visit Chandrika Lee Facility:[facility] Start: 11-15-2022 End: 11-15-[address] CHANDRIKA LEE . Facility: Start: 10-11-2022 Chart Update Chandrika Lee Work Phone: [facility] 250 DO Work Phone: Start: 10-06-2022 End: 10-07-2022 ambulatory PA-C TISH KENDALL Facility[place] [place] Start: 10-06-2022 End: 10-06-2022 Patient encounter procedure TISH KENDALL [facility] [place] Start: 10-01-2022 Patient encounter procedure Chandrika Lee Work Phone: [facility] [address] [place] Work Phone: Start: 10-01-2022 ambulatory PERLITA LAWRENCE Facility:[id number] Start: 09-06-2022 End: 09-07-2022 ambulatory Van SCHRADER Facility:[facility] [place] Start: 09-06-2022 End: 09-06-2022 Patient encounter procedure Van Burroughs SCHRADER [facility] [place] Start: 09-03-2022 Office outpatient vi sit 15 minutes Chandrika Lee Work Phone: [facility] 250 DO Work Phone: Start: 09-03-2022 ambulatory Perlita Lawrence Facility:[id number] Start: 08-17-2022 End: 08-17-2022 ambulatory Chandrika Lee Facility:[facility] Start: 08-17-2022 End: 08-17-2022 Admission to same day surgery center MD [facility] [place] Start: 08-17-2022 End: 08-17-2022 ambulatory MD Chandrika Lee Work Phone: [facility] Work Phone: Start: 08-11-2022 End: 08-12-[address] CHANDRIKA LEE . Facility: Start: 08-02-2022 End: 08-02-2022 ambulatory Carter Lewis Facility:[facility] Start: 08-02-2022 End: 08-02-2022 Admission to same day surgery center MD Chandrika Lee [facility] [place] Start: 08-02-2022 End: 08-02-2022 ambulatory MD Chandrika Lee Work Phone: [facility] Work Phone: Start: 07-26-2022 Patient encounter procedure Chandrika Lee Work Phone: [facility] 250 DO Work Phone: Start: 07-26-2022 ambulatory Perlita Lawrence Facility:[id number] Start: 07-19-2022 End: 07-19-2022 ambulatory Carter Lewis Facility:[facility] Start: 07-19-2022 End: 07-19-2022 ambulatory MD Chandrika Lee Work Phone: [facility] Work Phone: Start: 07-19-2022 End: 07-19-2022 Patient encounter procedure MD Chandrika Lee Work Phone: [facility] Work Phone: Start: 06-14-2022 End: 06-14-2022 ambulatory Be Azul Facility:[facility] Start: 06-14-2022 End: 06-14-2022 Admission to same day surgery center MD Chandrika Lee Work Phone: [facility]-Digestive Health Start: 06-14-2022 End: 06-14-2022 ambulatory MD Chandrika eLe Work Phone: [facility] Work Phone: Start: 06-05-2022 End: 06-05-2022 ambulatory Chandrika Lee Facility:[facility] Start: 06-05-2022 End: 06-05-2022 Discharged Recurring MD Chandrika Lee Work Phone: [facility]-Infusion Therapy - O/P Start: 06-04-2022 End: 06-27-[address] CHANDRIKA LEE . Facility: Start: 05-30-2022 End: 05-30-2022 Emergency department patient visit Chandrika Lee Facility:[facility] Start: 05-30-2022 End: 05-30-2022 Emergency department patient visit MD Chandrika Lee Work Phone: [facility]-Emergency Room Start: 05-09-2022 End: 05-12-2022 Evaluation and management of inpatient Jessica Akhtar Facility:[facility] Start: 05-09-2022 End: 05-12-2022 Evaluation and management of inpatient MD Chandrika Lee Work Phone: [facility] [place] [facility] Start: 04-29-2022 End: 04-29-2022 Patient encounter procedure TISH KENDALL [facility] [place] Start: 04-16-2022 End: 04-17-[address] CHANDRIKA LEE . Facility:[facility] Start: 04-06-2022 End: 04-06-2022 ambulatory Jessica Semaskiene Facility:[facility] Start: 04-06-2022 End: 04-06-2022 ambulatory MD Chandrika Lee Work Phone: [facility] Work Phone: Start: 04-06-2022 End: 04-06-2022 Discharged Recurring MD Chandrika Lee Work Phone: [facility]-Infusion Therapy - O/P Start: 03-31-2022 End: 04-02-2022 ambulatory Jessica Semaskiene Facility:[facility] Start: 03-31-2022 End: 04-02-2022 Evaluation and management of inpatient MD Chandrika Lee Work Phone: [facility] Start: 03-27-2022 End: 03-27-2022 Emergency department patient visit Chandrika Lee Facility:[facility] Start: 03-27-2022 End: 03-27-2022 Emergency department patient visit MD Chandrika Lee Work Phone: [facility]-Emergency Room Start: 02-17-[address] CHANDRIKA LEE . Facili ty:[facility]1 Start: 02-16-2022 End: 02-17-[address] CHANDRIKA LEE . Facility:[facility] Start: 01-07-2022 Encounter for preprocedural cardiovascular examination DR VAN SCHRADER . [facility] Start: 01-07-2022 Encounter for preprocedural laboratory examination DR VAN SCHRADER . [facility] Start: 01-07-2022 End: 01-07-[address] CHANDRIKA LEE . Facility:[facility] Start: 01-06-2022 End: 01-07-[address] VAN SCHRADER . Facility:[facility] Start: 01-06-2022 End: 01-07-2022 Encounter for preprocedural cardiovascular examination DR VAN SCHRADER . Facility:[facility] Start: 12-22-2021 End: 12-23-[address] DEVYN DIETZ Facility:[facility] Start: 12-14-2021 ambulatory TISH KENDALL Facility :[facility] Start: 12-08-2021 End: 12-08-2021 Patient encounter procedure TISH Grijalva FAVIAN [facility] [place] Start: 05-31-2013 End: 05-31-2013 Telephone encounter Praveena (Rn)(Hist) [facility] [place] Comment on above: (apts) Patient encounter status Chandrika Lee Work Phone: [facility] 250 DO Work Phone: Procedures Date Procedure Procedure Detail Performing Clinician Start: 10-01-2022 Echocardiography Liseth Lee Work Phone: Start: 08-17-2022 Hemorrhoidectomy MD Rabia Lee Work Phone: Start: 08-02-2022 Hemorrhoidectomy MD Rabia Lee Work Phone: Start: 06-14-2022 Colonoscopy MD Chandrika Lee Work Phone: Start: 06-04-2022 Antibody screen Jessica stewart Comment on above: Result Comment: PERF ORMED BY: [facility] [address] [place] [place] [address] PATHOLOGIST [employer] RADHA GARCIA M.D. Start: 05-30-2022 Urine culture MD Liseth Lee Work Phone: Start: 05-30-2022 CT of abdomen and pe lvis without contrast MD Chandrkia Lee Work Phone: Start: 05-11-2022 Transvaginal echography MD Chandrika Lee Work Phone: Start: 05-11-2022 Pelvic echography MD Arriaga Work Phone: Start: 05-10-2022 Stool culture for bacteria MD Chandrika Lee Work Phone: Start: 05-09-2022 Antibody screen Jessica Se stewart Comment on above: Order Comment: Trans fuse now? Y Number of units to transfuse now? 2 Result Comment: PERF ORMED BY: [facility] [address] [address] [place] [address] PATHOLOGIST [employer] RADHA GARCIA M.D. Start: 05-09-2022 Urine culture MD Liseth Lee Work Phone: Start: 03-31-2022 Antibody screen Jessica stewart Comment on above: Order Comment: Trans fuse now? Y Number of units to transfuse now? 1 Result Comment: PERF ORMED BY: [facility] [address] [place] [address] PATHOLOGIST [employer] RADHA GARCIA M.D. Start: 03-27-2022 Antibody screen Jessica stewart Comment on above: Result Comment: PERF ORMED BY: [facility] [address] [place] [address] PATHOLOGIST CIRCUIT BOARD DRAFTER RADHA GARCIA M.D. Start: 03-27-2022 Computed tomography [...] Start: 10-01-2022 ECHO, Provider: GUERDA GATES ULTRASOUND 01,[id number], Status: Pen, Time: 10:45 AM ECHO, Provider: GUERDA MITCHELLI ULTRASOUND 01,[id number], Status: Pen, Time: 10:45 AM [facility] 250 DO Work Phone: Start: 08-30-2022 FUV, Provider: Perlita Lawrence, Status: Pen, Time: 3:15 PM FUV, Provider: Perlita Lawrence, Status: Pen, Time: 3:15 PM [facility] 250 DO Work Phone: Start: 08-17-2022 End: 08-17-2022 [facility] Start: 08-02-2022 [facility] Start: 08-02-2022 [facility] Start: 06-14-2022 [facility] Start: 05-12-2022 [facility] Start: 05-11-2022 Referral to hazard mitigation officer [facility] Start: 05-09-2022 Administration of prophylactic treatment [facility] Start: 05-09-2022 Hospital admission [facility] Start: 05-09-2022 Referral to hazard mitigation officer [facility] Start: 05-09-2022 Inspection of Lower Intestinal Tract, Via Natural or Artificial Opening Endoscopic Inspection of Lower Intestinal Tract, Via Natural or Artificial Opening Endoscopic [facility] Start: 04-02-2022 [facility] Start: 04-01-2022 Administration of prophylactic treatment [facility] Start: 04-01-2022 Comprehensive metabolic 2000 panel - Serum or Plasma [facility] Start: 04-01-2022 End: 04-01-2022 [facility] Start: 03-31-2022 End: 03-31-2022 [facility] Start: 03-31-2022 Magnesium measurement [facility] Start: 03-31-2022 Referral to hazard mitigation officer [facility] Start: 03-31-2022 Hospital admission [facility] Start: 03-31-2022 End: 04-01-2022 [facility] Start: 02-25-2021 Influenza vaccination INFLUENZA (Season Ended) [facility] Start: 2017 HPV TESTING HPV TESTING [facility] Start: 2008 PAP TESTING PAP TESTING [facility] Start: 2006 Urine microalbumin profile DTAP,TDAP,TD (1 - Tdap) [facility] Start: 2005 HEPATITIS C SCREENING HEPATITIS C SCREENING [facility] Start: 1999 Adult depression screening assessment DEPRESSION SCREENING [facility] Bacteria identified in Stool by Culture [facility] Work Phone: Bacteria identified in Urine by Culture [facility] Bacterial cytolethal distending toxin cdt gene [Presence] in Unspecified specimen by SARABJIT with probe detection [facility] Work Phone: Ferritin [Mass/volum e] in Serum or Plasma [facility] Work Phone: Folate [Mass/volume] in Serum or Plasma [facility] Work Phone: Hematocrit [Volume F raction] of Blood [facility] Work Phone: Hemoglobin [Mass/vol ume] in Blood [facility] Work Phone: Hemoglobin.gastroint estinal [Presence] in Stool [facility] Work Phone: Iron [Mass/volume] i n Serum or Plasma [facility] Work Phone: Iron binding capacit y [Mass/volume] in Serum or Plasma [facility] Work Phone: Iron saturation [Mas s Fraction] in Serum or Plasma [facility] Work Phone: Lactoferrin [Presenc e] in Stool [facility] Work Phone: Magnesium measurement [facility] Work Phone: Patient Education [facility] Work Phone: Patient referral [facility] Work Phone: Stool Lactoferrin Stool Lactoferrin [facility] Stool Occult Blood (DIVYA) Stool O ccult Blood (DIVYA) [facility] Transferrin measurement [facility] Work Phone: Vitamin B12 measurement [facility] Work Phone: Immunizations Immunization Date Immunization Notes Care Provider Rosa crenshaw 05-04-2022 influenza, seasonal, injectable Chandrika Lee Work Phone: [facility] 250 DO Work Phone: Comment on above: Series: 06-17-2021 influenza virus vacc ine, unspecified formulation Chandrika Lee Work Phone: [facility] 250 DO Work Phone: 08-20-2020 COVID-19 Lisseth Abad (Liquid Bronze) MD Chandrika Lee Work Phone: [facility] 08-20-2020 SARS-CoV-2 (COVID-19 ) Ad26 vaccine, recombinant TISH KENDALL [facility] 07-09-2020 COVID-19 mRNA, Lisseth ness (Pfizer) MD Chandrika Lee Work Phone: [facility] 07-09-2020 SARS-CoV-2 (COVID-19 ) Ad26 vaccine, recombinant TISH KENDALL [facility] 07-04-2020 [employer] COVI D-19 Vacc 30 MCG/0.3ML Intramuscular Suspension Chandrika Holland [employer] Work Phone: [facility] 250 DO Work Phone: 08-13-1999 measles, mumps and rubella virus vaccine Chandrika Lee Work Phone: [facility] 250 DO Work Phone: Payers Date Payer Category Payer Medicaid [id number] 2022 Self-pay [id number] 2013 Unknown MMO MMO [employer]PER[employer] PLUS [id number] 2013-Present PPO [id number]. [id number] 1987 Unknown [id number] .840.1.664677.3.579.2.356 1987 Unknown [id number] 840.1.385234.3.579.2.356 1987 Unknown [id number] 2.16.840.1.909036.3.579.2.1068 1987 Unknown [id number] 2.16.840.1.570345.3.579.2.593 1987 Unknown [id number] 2.16.840.1.731847.3.579.2.593 1987 Unknown [id number] 2.16.840.1.748306.3.579.2.593 1987 Unknown [id number] 2.16.840.1.386017.3.579.2.593 1987 Unknown [id number] 2.16.840.1.788323.3.579.2.593 1987 Unknown [id number] 2.16.840.1.194046.3.579.2.593 1987 Unknown [id number] 2.16.840.1.517945.3.579.2.593 1987 Unknown [id number] 2.16.840.1.819439.3.579.2.593 1987 Unknown [id number] 2.16.840.1.389816.3.579.2.593 1987 Unknown [id number] 2.16.840.1.856940.3.579.2.593 1987 Unknown [id number] 2.16.840.1.416767.3.579.2.727 1987 Unknown [id number] 2.16.840.1.611242.3.579.2.727 1987 Unknown [id number] 2.16.840.1.320480.3.579.2.727 1987 Unknown [id number] 2.16.840.1.399485.3.579.2.727 1987 Unknown [id number] 2.16.840.1.977959.3.579.2.727 1987 Unknown [id number] 840.1.716542.3.579.2.727 1987 Unknown [id number] 2.0.1.431498.3.579.2.727 1959 Self-pay [id number] 1959 Unknown [id number] Medicaid [employer] [id number] Unknown [id number] Unknown Unknown [id number] 840.1.743364.3.579.2.531 Unknown [id number] 840.1.558410.3.579.2.531 Unknown [id number] 840.1.856903.3.579.2.531 Unknown [id number] 08.12.830.1.938445.3.579.2.531 Unknown 840.1.553544.3.579.2.531 Unknown 840.1.265542.3.579.2.531 Unknown 840.1.627742.3.579.2.531 Unknown [id number] 2.16.840.1.111072.3.579.2.531 Unknown [id number] 840.1.072122.3.579.2.531 Unknown [id number] 08.12.830.1.792860.3.579.2.531 Unknown [id number] 840.1.988235.3.579.2.531 Social History Date Type Detail Facility Tobacco smoking stat [facility] Unknown if ever smoked [facility] Start: 1985 Sex Assigned At Not on file [facility] Start: 12-08-2021 End: 10-06-2022 Tobacco smoking status Never smoked tobacco (finding) [facility] Tobacco smoking status Never [facility] Sex Assigned At Female [facility] Start: 1985 Sex Assigned At Female F [facility] Start: 05-30-2022 End: 06-14-2022 Tobacco smoking status NHIS Ex-smoker (finding) [facility] Never a smoker Never a smoker [facility] io [facility] 250 DO Work Phone: Comment on above: 1 decaf coffee daily ; Medical Equipment Procedure Code Equipment Code Equipment Origin al Text Equipment Identifier Dates Polymeric ureter al stent [id number] [facility] Start: 01-19-2021 Goals Date Patient Goal Desired Activity /State Functional Status Date Assessment Result Facility 10-06-2022 Functional Status N/A [facility] 05-12-2022 Functional status Patient at Baseline [facility] Work Phone: 04-02-2022 Functional status Patient at Baseline [facility] Work Phone: 12-08-2021 Functional Status N/A [facility] Mental Status Date Assessment Result Facility 05-12-2022 Cognitive function Cognitive Sta tus Patient at Baseline [facility] Work Phone: 04-02-2022 Cognitive function Cognitive Sta tus Patient at Baseline [facility] Work Phone: Clinical Notes 05-27-2003 to 10-06-2022 Note Date & Type Note Facility 10-06-2022 Hospital Discharg e instructions Follow Up Care 10/06/2022 15:26:31 With:FAVIAN TY, TISH E, URL Address: [address] [place] [address] [id number] When: Unknown [facility] [place] 10-06-2022 Hospital Discharg e instructions Patient Education 10/06/2022 15:03:54 Kidney Stones, Ambs-wz-Ewky Kidney Stones Kidney stones are rock-like masses [...] Follow these instructions at home: Medicines Take godf-asi-dyfrgrm and prescription medicines only as told by [...] 11/29/2008 Document Revised: 10/30/2019 Document Reviewed: 10/30/2019 [employer] Patient Education 2020 SQMOS. Follow Up Care 09/06/2022 11:18:28 With:FAVIAN TY, TISH Grijalva, URL Address: [address] [place] [address] [id number] When:04/07/2023 Comments:JULIO CESAR [facility] 09-06-2022 Hospital Discharg e instructions Patient Education [...] include: ?Spinach. ?Rhubarb. ?Beets. ?Potato chips and equatorial guinean fries. ?Nuts. If you regularly take a diuretic medicine, make sure to eat at least 1 2 fruits or vegetables high in potassium each day. These include: ?Avocado. ?Banana. ?Linn, prune, carrot, or tomato juice. ?Baked potato. [...] Casseroles. Pizza. Lasagna. Frozen meals. Potato chips. Kyrgyz fries. Summary You can reduce your risk [...] 10/08/2011 Document Revised: 10/03/2019 Document Reviewed: 05/24/2017 [employer] Patient Education 2020 SQMOS. Follow Up Care 06/29/2022 15:00:08 With:RACIEL ANDERSON, Van Burroughs, URL Address: [facility] [address] [place] [address]- When: Unknown [facility] 06-14-2022 Procedure note [facility] 04-01-2022 Consult note Note Date/Time April 01, 2022 5:51pm [facility] [address] [place] [address] Gastroenterology Consult Note Signed Patient: Raquel Correa MR#: [id number] : 1985 Acct:[id number] Age/Sex: 37 / F Adm Date: 2 Loc: Room: 2L7248-1 Type: ADM IN Attending Dr: Jessica Akhtar [...] last many years. She had a colonoscopy [id number] with Dr. Burton colonoscopy in 2019 with [...] negative unless noted below or [facility] for [facility]?: Yes Medical History (Updated [...] Lactobacills gasseri-Bifidobac bifidum,longum 1.5 billion cell capsule (Curious Sense) 1.5 tab PO DAILY 04/10/17 [History Confirmed 03/31/22] cyproheptadine 4 mg tablet 4 mg PO BID 04/10/17 [History Confirmed 03/31/22] fluoxetine 40 mg capsule (Prozac) 40 mg PO DAILY 04/10/17 [History Confirmed 03/31/22] hydrocodone 5 mg-acetaminophen 325 mg tablet (Isabella) 1 tab PO BID PRN Pain 04/10/17 [History Confirmed 03/31/22] dicyclomine 20 mg tablet 20 mg PO BID 04/25/19 [History Confirmed 03/31/22] eppooxl-eevvwyekxebjs-ugqjzxfk 250 mg-250 mg-65 mg tablet (Excedrin Migraine) [...] tablet (Imitrex) 100 mg PO DIRECTED PRN Atqlwnkm33/06/21 [History Confirmed 03/31/22] d-mannose 500 mg capsule [...] MPV Neut % (Auto) Lymph % (Auto) Harney % (Auto) Eos % (Auto) Baso % (Auto) Neut # (Auto) Lymph # (Auto) Harney # (Auto) Eos # (Auto) Baso # (Auto) Nucleated RBC % (auto) PHA Creatinine Clear Sodium Potassium Chloride Carbon Dioxide Anion Gap BUN Creatinine Est GFR ( Amer) Est GFR (Non-Af Amer) Glucose Calcium Total Bilirubin AST ALT Alkaline Phosphatase Total Protein Albumin Globulin Albumin/Globulin Ratio Urine Color Yellow Urine Appearance Clear Urine pH 5.5 Ur Specific [place] 1.005 Urine Protein Negative Urine Glucose (UA) Normal Urine Ketones Negative Urine Occult Blood Negative Urine Nitrite Positive H Urine Bilirubin Negative Urine Urobilinogen Normal Ur Leukocyte Esterase 3+ H Urine RBC None seen Urine WBC 10-19 H Ur Squamous Epith Cells 5-9 H Urine Bacteria 3+ H Hyaline Casts 0-8 COVID-19 Clin Com Negative Crossmatch ([facility]) See Detail 03/31/22 04/01/22 04/01/22 21:44 00:08 06:28 Corrected WBC 6.6 Uncorrected WBC Count 6.6 RBC 2.69 L Hgb 8.0 L 7.2 L 7.8 L Hct 24.1 L 21.7 L 23.6 L MCV 87.7 MCH 29.0 MCHC 33.1 RDW 15.1 Plt Count 403 MPV 7.4 Neut % (Auto) 59.7 Lymph % (Auto) 32.6 Harney % (Auto) 6.1 Eos % (Auto) 1.3 Baso % (Auto) 0.3 Neut # (Auto) 4.0 Lymph # (Auto) 2.2 Harney # (Auto) 0.4 Eos # (Auto) 0.1 Baso # (Auto) 0.0 Nucleated RBC % (auto) 0.1 PHA Creatinine Clear Sodium Potassium Chloride Carbon Dioxide Anion Gap BUN Creatinine Est GFR ( Amer) Est GFR (Non-Af Amer) Glucose Calcium Total Bilirubin AST ALT Alkaline Phosphatase Total Protein Albumin Globulin Albumin/Globulin Ratio Urine Color Urine Appearance Urine pH Ur Specific [place] Urine Protein Urine Glucose (UA) Urine Ketones Urine Occult Blood Urine Nitrite Urine Bilirubin Urine Urobilinogen Ur Leukocyte Esterase Urine RBC Urine WBC Ur Squamous Epith Cells Urine Bacteria Hyaline Casts COVID-19 Clin Com Crossmatch ([facility]) 04/01/22 04/01/22 06:28 12:01 Corrected WBC Uncorrected WBC Count RBC Hgb 8.9 L Hct 26.9 L MCV MCH MCHC RDW Plt Count MPV Neut % (Auto) Lymph % (Auto) Harney % (Auto) Eos % (Auto) Baso % (Auto) Neut # (Auto) Lymph # (Auto) Harney # (Auto) Eos # (Auto) Baso # [...] Color Urine Appearance Urine pH Ur Specific [place] Urine Protein Urine Glucose (UA) Urine Ketones [...] signed by MD Be Azul> 04/01/22 175 [facility] Work Phone: 1(789) 176-414210-06-2022 Progress note Author Jessica Akhtar [facility] April 01, 2022 12:51pm Note Date/Time April 01, 2022 11 :42am [facility] [address] [place] [address] Hospitalist Progress Note Signed Patient: Raquel Correa MR#: [id number] : 1985 Acct:[id number] Age/Sex: 37 / F Adm Date: 2 Loc: 4N Room: 9Z1675-9 Type: ADM IN Attending Dr: Jessica Akhtar [...] signed by Jessica Akhtar MD> 04/01/22 1251 [facility] Work Phone: 1(166) 393-648910-05-2022 History and physical note Author Jessica Akhtar [facility] March 31, 2022 3:09pm Note Date/Time March 31, 2022 3: 09pm [facility] [address] [place] [address] Hospitalist H&P Signed Patient: Raquel Correa MR#: [id number] : 1985 Acct:[id number] Age/Sex: 37 / F Adm Date: 2 Loc: Room: [address] [place] [address] Type: ADM IN Attending Dr: Jessica Akhtar [...] Lactobacills gasseri-Bifidobac bifidum,longum 1.5 billion cell capsule (Curious Sense) 1.5 tab PO DAILY 04/10/17 [History Confirmed 03/31/22] cyproheptadine 4 mg tablet 4 mg PO BID 04/10/17 [History Confirmed 03/31/22] fluoxetine 40 mg capsule (Prozac) 40 mg PO DAILY 04/10/17 [History Confirmed 03/31/22] hydrocodone 5 mg-acetaminophen 325 mg tablet (Isabella) 1 tab PO Q4H PRN Pain 04/10/17 [History Confirmed 03/31/22] dicyclomine 20 mg tablet 20 mg PO BID 04/25/19 [History Confirmed 03/31/22] gpldqod-dyjfopbfvgjcf-jrufkeyt 250 mg-250 mg-65 mg tablet (Excedrin Migraine) [...] tablet (Imitrex) 100 mg PO DIRECTED PRN Kszfrkte52/06/21 [History Confirmed 03/31/22] d-mannose 500 mg capsule [...] % (Auto) 22.6 % (.) 03/31/22 12:37 Harney % (Auto) 5.6 % (.) 03/31/22 12:37 Eos % (Auto) 0.3 % (.) 03/31/22 12:37 Baso % (Auto) 0.5 % (.) 03/31/22 12:37 Neut # (Auto) 8.3 x10E3/uL (1.8-7.7) H 03/31/22 12:37 Lymph # (Auto) 2.6 x10E3/uL (1.00-4.8) 03/31/22 12:37 Harney # (Auto) 0.7 x10E3/uL (0.0-0.8) 03/31/22 12:37 [...] signed by Jessica Akhtar MD> 03/31/22 1509 [facility] Work Phone: 1(104) 317-687512-01-2003 History of Past illness Narrative* Problem Noted Date Resolved Date Abdominal pain 05/27/2003 04/10/2013 Diarrhea 05/27/2003 04/10/2013 documented as of this encounter (statuses as of 10/16/2020) [facility] No data available for this section [facility] Evaluation + Plan note Future Appointments Appointment Date:10/06/2022 02:40:00 PM Scheduled Provider:TISH KENDALL PA-C Location:[facility] Appointment Type:URO Office Visit [facility] evaluation + Plan note Future Appointments Appointment Date:04/12/2023 11:00:00 AM Scheduled Provider:TISH KENDALL PA-C Location:[facility] Appointment Type:URO Office Visit [facility] evaluation + Plan note Future Appointments Appointment Date:05/10/2023 01:15:00 PM Scheduled Provider:TISH KENDALL PA-C Location:[facility] Appointment Type:URO Office Visit [facility] evaluation noteNo assessment information available [facility] Work Phone: evaluation note* Diagnosis Onset Date Resolution Status Anemia acute Chronic hypokalemia acute Crohn's disease acute [facility] Work Phone: evaluation note* Diagnosis Onset Date Resolution Status Anemia acute C. difficile colitis acute Chronic hypokalemia acute Crohn's disease acute [facility] Work Phone: evaluation note* Diagnosis Onset Date Resolution Status Anemia acute C. difficile colitis acute Chronic hypokalemia acute Crohn's disease acute Acute blood loss anemia acut e Anemia acute Crohn's disease acute Hypokalemia acute Rectal bleeding acute [facility] Work Phone: evaluation note* Diagnosis Onset Date Resolution Status Anemia acute C. difficile colitis acute Chronic hypokalemia acute Crohn's disease acute Acute blood loss anemia acut e Anemia acute Crohn's disease acute Hypokalemia acute Rectal bleeding acute Rectal bleeding acute [facility] Work Phone: evaluation note* Diagnosis Onset Date Resolution Status Acute blood loss anemia acut e Anemia acute Crohn's disease acute Hypokalemia acute Rectal bleeding acute Rectal bleeding acute [facility] Work Phone: evaluation note* Diagnosis Onset Date Resolution Status Rectal bleeding acute [facility] Work Phone: History and physical note Author Jessica Akhtar [facility] March 31, 2022 3:09pm Note Date/Time March 31, 2022 3: 09pm [facility] [address] [place] [address] Hospitalist H&P Signed Patient: Raquel Correa MR#: [id number] : 1985 Acct:[id number] Age/Sex: 37 / F Adm Date: 2 Loc: 4N Room: [address] [place] [address] Type: ADM IN Attending Dr: Jessica Akhtar [...] Lactobacills gasseri-Bifidobac bifidum,longum 1.5 billion cell capsule (Curious Sense) 1.5 tab PO DAILY 04/10/17 [History Confirmed 03/31/22] cyproheptadine 4 mg tablet 4 mg PO BID 04/10/17 [History Confirmed 03/31/22] fluoxetine 40 mg capsule (Prozac) 40 mg PO DAILY 04/10/17 [History Confirmed 03/31/22] hydrocodone 5 mg-acetaminophen 325 mg tablet (Isabella) 1 tab PO Q4H PRN Pain 04/10/17 [History Confirmed 03/31/22] dicyclomine 20 mg tablet 20 mg PO BID 04/25/19 [History Confirmed 03/31/22] sqczzeo-ncijxpsykuwom-rketeyax 250 mg-250 mg-65 mg tablet (Excedrin Migraine) [...] tablet (Imitrex) 100 mg PO DIRECTED PRN Xjodikba24/06/21 [History Confirmed 03/31/22] d-mannose 500 mg capsule [...] % (Auto) 22.6 % (.) 03/31/22 12:37 Harney % (Auto) 5.6 % (.) 03/31/22 12:37 Eos % (Auto) 0.3 % (.) 03/31/22 12:37 Baso % (Auto) 0.5 % (.) 03/31/22 12:37 Neut # (Auto) 8.3 x10E3/uL (1.8-7.7) H 03/31/22 12:37 Lymph # (Auto) 2.6 x10E3/uL (1.00-4.8) 03/31/22 12:37 Harney # (Auto) 0.7 x10E3/uL (0.0-0.8) 03/31/22 12:37 [...] now Documented By: Jessica Akhtar MD 03/31/22 1508 Signed By: <Electronically signed by Jessica Akhtar MD> 03/31/22 3373 [facility] Work Phone: 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 [...] Follow up. * 6.Life style modification reiterated. -[facility] 250 DO Work Phone: History of [...] Follow up. * 6.Life style modification reiterated. [facility] Work Phone: Hospital Discharge instructions No data available for this section [facility] Hospital Discharge instructions Additional Instructions Dietary recommendations: - Boost Breeze three times/day with [facility] Work Phone: Hospital Discharge instructions Additional Instructions [...] if you have any problems. -Office number [phone] Work Phone: Progress note No data available for this section [facility] Progress note Author Be Azul [facility] April 02, 2022 3:55pm Note Date/Time April 02, 2022 3: 55pm [facility] [address] [place] [address] Gastroenterology PN Signed Patient: Raquel Correa MR#: [id number] : 1985 Acct:[id number] Age/Sex: 37 / F Adm Date: 2 Loc: 4N Room: [address] [place] [address] Type: DIS IN Attending Dr: Jessica Akhtar [...] Acute Documented By: Be Azul MD 04/02/22 1559 Signed By: <Electronically signed by MD Be Azul> 04/02/22 2919 [facility] Work Phone: Chief Complaint and [...] 10, 2017 12:41am Chief Complaint POC Hemmroidectomy Katelynnadah.RAQUEL CORREA is being seen for a 2 [...] or prosecute any alcohol or drug abuse patient.[facility] Reason for Visit (unrecogniz ed section [...] section and content) DATE CREATED AUTHOR 09/04/2022 [facility] DATE CREATED AUTHOR AUTHOR'S ORGANIZ ATION 09/05/2022 [employer] DATE CREATED AUTHOR AUTHOR'S ORGANIZ ATION 10/04/2022 [facility] DATE CREATED AUTHOR AUTHOR'S ORGANIZ ATION 12/04/2022 [facility] DATE CREATED AUTHOR AUTHOR'S ORGANIZ ATION 12/04/2022 [facility] DATE CREATED AUTHOR AUTHOR'S ORGANIZ ATION 06/10/2023 [facility] FOR RECORDS PERTAINING TO PATIENTS WHO ARE [...] BE BASED ON THE PRIMARY CLINICAL RECORDS. [facility] [employer] [facility]. provides no warranty or guarantee of the accuracy or completeness of information in this document.
[2023-07-19 13:53] LABS: Cannabinoid Screen Urine POSITIVE (NEGATIVE)
[2023-07-19 13:54] LABS: Amphetamine Screen Urine NEGATIVE (NEGATIVE); Barbiturates Screen Urine NEGATIVE (NEGATIVE); Benzodiazepines Screen Urine POSITIVE (NEGATIVE); Buprenorphine Screen Urine NEGATIVE (NEGATIVE); Cocaine Screen Urine NEGATIVE (NEGATIVE); Methadone Screen Urine NEGATIVE (NEGATIVE); Methamphetamines Screen Urine NEGATIVE (NEGATIVE); Opiate Screen Urine POSITIVE (NEGATIVE); Oxycodone Screen Urine NEGATIVE (NEGATIVE); Phencyclidine Screen Urine NEGATIVE (NEGATIVE); Tricyclic Antidepressant Urine NEGATIVE (NEGATIVE)
[2023-07-27 15:08] LABS: Summary Report (Summary) FINAL (.)
== END 2023-07-19 13:10 | disposition home or self-care (01) ==
LOC: LAB 13:09
PROVIDERS: PCP Family Medicine; Visit Provider Family Medicine
DX: Z79.899 Other long term (current) drug therapy (principal)
CPT/HCPCS: 80307; 80326; 80331; 80334; 80337; 80338; 80341; 80344; 80346; 80348; 80353; 80354; 80355; 80357; 80358; 80359; 80360; 80361; 80364; 80365; 80366; 80367; 80368; 80370; 80371; 80372; 80373; 80377; 82570; 83992

== ENCOUNTER 2023-10-18 10:24 | Outpatient (OUT) | payer BC, OTHER, SELFPAY ==
--- NOTE | 2023-10-18 10:30 | XR_ITS ---
The [address] [address] Patient Name: RAQUEL BRAR MRN: [id number] date: 1985 Sex: F Assigned Patient Location: LAB Current Patient Location: LAB Accession/Order Number: [id number] Exam Date: 10/18/2023 10:38 Report Date: 10/18/2023 15:29 At the request of: CHANDRIKA LEE Procedure: XR foot RT min 3V PROCEDURE: XR foot RT min 3V, XR ankle RT min 3V COMPARISON: None. HISTORY: Foot Pain M79.671 FINDINGS: BONES:No acute fracture or dislocation. Moderate plantar enthesopathic spurring of the calcaneus SOFT TISSUES:Negative. No visible soft tissue swelling. EFFUSION:None visible. OTHER: Negative. XR/XR foot RT min 3V IMPRESSION: Moderate enthesopathic spurring plantar calcaneus Electronically authenticated by: DEVYN DIETZ Date: 10/18/2023 15:29
--- NOTE | 2023-10-18 10:30 | XR_ITS ---
The [address] [address] Patient Name: RAQUEL BRAR MRN: [id number] date: 1985 Sex: F Assigned Patient Location: LAB Current Patient Location: LAB Accession/Order Number: [id number] Exam Date: 10/18/2023 10:38 Report Date: 10/18/2023 15:29 At the request of: CHANDRIKA LEE Procedure: XR ankle RT min 3V PROCEDURE: XR foot RT min 3V, XR ankle RT min 3V COMPARISON: None. HISTORY: Foot Pain M79.671 FINDINGS: BONES:No acute fracture or dislocation. Moderate plantar enthesopathic spurring of the calcaneus SOFT TISSUES:Negative. No visible soft tissue swelling. EFFUSION:None visible. OTHER: Negative. XR/XR ankle RT min 3V IMPRESSION: Moderate enthesopathic spurring plantar calcaneus Electronically authenticated by: DEVYN DIETZ Date: 10/18/2023 15:29
== END 2023-10-18 10:25 | disposition home or self-care (01) ==
LOC: LAB 10:26
PROVIDERS: PCP Family Medicine; Visit Provider Family Medicine
DX: M79.671 Pain in right foot (principal); M77.31 Calcaneal spur, right foot
CPT/HCPCS: 73610; 73630

== ENCOUNTER 2024-02-17 16:58 | Outpatient (OUT) | payer BC, OTHER, SELFPAY ==
[2024-02-17 17:31] LABS: Erythrocyte Sedimentation Rate 11 mm/hr (<=20)
[2024-02-17 17:33] LABS: Partial Thromboplastin Time 27.9 sec (22.3-36.2); Prothrombin Time 10.6 sec (9.0-11.6)
[2024-02-17 17:35] LABS: Alanine Aminotransferase 37 U/L (14-59); Albumin Globulin Ratio 1.2; Albumin Level 4.2 g/dL (3.4-5.0); Alkaline Phosphatase 58 U/L (46-116); Anion Gap 13.1; Aspartate Amino Transferase 17 U/L (15-37); Bilirubin Total 0.5 mg/dL (0.2-1.0); C Reactive Protein <0.50 mg/dL (<=0.50); Calcium 9.2 mg/dL (8.5-10.1); Carbon Dioxide 22.5 mmol/L (21.0-32.0); Chloride 101 mmol/L (98-107); Estimated GFR (African America >60 (>=60); Estimated GFR (Non-African Ame >60 (>=60); Globulin 3.5 g/dL; Glucose 102 mg/dL (74-106); Potassium 3.6 mmol/L (3.5-5.1); Sodium 133 mmol/L (136-145); Total Protein 7.7 g/dL (6.4-8.2)
[2024-02-17 17:41] LABS: Basophils Percent Auto 0.2 % (0.2-2.0); Eosinophils Absolute Auto 0.2 10^3/uL (0.0-0.7); Eosinophils Percent Auto 1.4 % (0.9-7.0); Hematocrit 42.4 % (36.0-48.0); Hemoglobin 14.4 g/dL (12.0-16.0); Immature Granulocytes Abs Auto 0.04 10^3/uL (0.00-0.03); Immature Granulocytes Pct Auto 0.3 % (0.0-0.5); Lymphocytes Absolute Auto 2.4 10^3/uL (1.2-3.8); Lymphocytes Percent Auto 20.6 % (20.5-60.0); Mean Corpuscular Volume 88.3 fL (81.0-99.0); Mean Platelet Volume 9.9 fL (9.5-13.5); Monocytes Absolute Auto 0.6 10^3/uL (0.3-0.8); Monocytes Percent Auto 5.1 % (1.7-12.0); Neutrophils Absolute Auto 8.5 10^3/uL (1.4-6.5); Neutrophils Percent Auto 72.4 % (43.0-75.0); Platelet Count 398 10^3/uL (150-450); Red Cell Distribution Width 13.1 % (11.0-15.0); White Blood Count 11.7 10^3/uL (4.0-11.0)
== END 2024-02-17 16:59 | disposition home or self-care (01) ==
LOC: LAB 17:00
PROVIDERS: PCP Family Medicine; Visit Provider Family Medicine
DX: K50.90 Crohn's disease, unspecified, without complications (principal)
CPT/HCPCS: 36415; 80053; 85025; 85610; 85652; 85730; 86140

== ENCOUNTER 2024-05-04 10:09 | Outpatient (OUT) | payer BC, OTHER, SELFPAY ==
[2024-05-04 10:29] LABS: Basophils Percent Auto 0.4 % (0.2-2.0); Eosinophils Absolute Auto 0.1 10^3/uL (0.0-0.7); Eosinophils Percent Auto 1.4 % (0.9-7.0); Hematocrit 37.3 % (36.0-48.0); Hemoglobin 13.1 g/dL (12.0-16.0); Immature Granulocytes Abs Auto 0.02 10^3/uL (0.00-0.03); Immature Granulocytes Pct Auto 0.2 % (0.0-0.5); Lymphocytes Absolute Auto 1.6 10^3/uL (1.2-3.8); Lymphocytes Percent Auto 15.4 % (20.5-60.0); Mean Corpuscular HGB Conc 35.1 g/dL (29.9-35.2); Mean Corpuscular Volume 85.6 fL (81.0-99.0); Mean Platelet Volume 9.4 fL (9.5-13.5); Monocytes Absolute Auto 0.8 10^3/uL (0.3-0.8); Neutrophils Absolute Auto 7.6 10^3/uL (1.4-6.5); Neutrophils Percent Auto 74.6 % (43.0-75.0); Platelet Count 279 10^3/uL (150-450); Red Blood Count 4.36 10^6/uL (4.20-5.40); Red Cell Distribution Width 13.1 % (11.0-15.0); White Blood Count 10.2 10^3/uL (4.0-11.0)
[2024-05-04 11:37] LABS: Estimated Average Glucose 97 mg/dL
[2024-05-04 11:49] LABS: Alanine Aminotransferase 34 U/L (14-59); Albumin Globulin Ratio 0.9; Albumin Level 3.4 g/dL (3.4-5.0); Alkaline Phosphatase 59 U/L (46-116); Anion Gap 13.6; Aspartate Amino Transferase 23 U/L (15-37); BUN Creatinine Ratio 9.3; Bilirubin Total 0.4 mg/dL (0.2-1.0); Carbon Dioxide 29.4 mmol/L (21.0-32.0); Chloride 102 mmol/L (98-107); Chol HDL Ratio 2.8; Cholesterol 144 mg/dL (<=200); Estimated GFR (African America >60 (>=60 mL/min/1.73m^2); Estimated GFR (Non-African Ame >60 (>=60 mL/min/1.73m^2); Free T3 2.59 pg/mL (2.18-3.98); Globulin 3.6 g/dL; Glucose 95 mg/dL (74-106); HDL Cholesterol 52 mg/dL (40-60); Sodium 142 mmol/L (136-145); Thyroid Stimulating Hormone 1.704 uIU/mL (0.358-3.740); Triglycerides 162 mg/dL (<=150); VLDL CHOLESTEROL 32.4 mg/dL
== END 2024-05-04 10:10 | disposition home or self-care (01) ==
LOC: LAB 10:10
PROVIDERS: PCP Family Medicine; Visit Provider Family Medicine
DX: Z00.00 Encounter for general adult medical examination without abnormal findings (principal); N20.0 Calculus of kidney
CPT/HCPCS: 36415; 74018; 80053; 80061; 83036; 83540; 84436; 84443; 84481; 85025

== ENCOUNTER 2024-05-04 10:12 | Outpatient (OUT) | payer BC, OTHER, SELFPAY ==
--- NOTE | 2024-05-04 10:33 | XR_ITS ---
The [address] [address] Patient Name: RAQUEL BRAR MRN: [id number] date: 1985 Sex: F Assigned Patient Location: [facility] Current Patient Location: RAD Accession/Order Number: [id number] Exam Date: 05/04/2024 10:35 Report Date: 05/08/2024 07:20 At the request of: VAN SCHRADER Procedure: XR abdomen 1V EXAMINATION: XR abdomen 1V HISTORY: Kidney Stone COMPARISON: 04/25/2023 FINDINGS: KIDNEY/URETER - RIGHT: Nephrolithiasis measuring up to 6.3 mm KIDNEY/URETER - LEFT: No visible renal or ureteral calcifications. PELVIS: No visible ureteral calcifications. Any visible calcifications favor phleboliths. BOWEL: No abnormal dilation or deviation. Stable lines BONES: No acute abnormality. OTHER: IUD. No abnormal gaseous collections. XR/XR abdomen 1V IMPRESSION: Right nephrolithiasis Electronically authenticated by: DEVYN DIETZ Date: 05/08/2024 07:20
== END 2024-05-04 10:13 | disposition home or self-care (01) ==
LOC: RAD 10:13
PROVIDERS: PCP Family Medicine; Visit Provider Urology
DX: N20.0 Calculus of kidney (principal)
CPT/HCPCS: 74018

== ENCOUNTER 2024-05-05 15:49 | Emergency (ER) | payer BC, OTHER, SELFPAY ==
[2024-05-05 15:54] VITALS: BP 135/87; PULSE 93; TEMP 37; O2SAT 97; BMI 24.8
--- OUTSIDE RECORDS SUMMARY | 2024-05-05 15:55 | XMS_ITS | CCD ---
Author Organization [facility] Care Team Providers Care Centerless Grinder Name Role Phone Chandrika Lee Primary Care Provider Chandrika Lee Primary Care Physician MD Chandrika Lee Primary Care Provider DO Dominik Vanegas Emergency Provider DO Jaime Rodrgiuez Emergency Provider MD Jessica Akhtar Admit Provider MD Jessica Akhtar Attending Provider MD Be Azul Other Provider MD Chandrika Lee Primary Care Provider DO Dominik Vanegas Emergency Provider DO Jaime Rodriguez Emergency Provider MD Jessica Akhtar Admit Provider MD Jessica Akhtar Attending Provider [phone] MD Be Azul Other Provider MELONY Hu Emergency Provider [phone] MD Jarad Mcmillan Admit Provider MD Finn Vo Other Provider MD Noman Armando Emergency Provider MD Chandrika Lee Attending Provider MD Be Azul Attending Provider MD Chandrika Lee Primary Care Provider [phone] MD Jessica Akhtar Attending Provider MD Be Azul Other Provider DO Carter Lewis Attending Provider Chandrika Lee Unavailable Unavailable Unavailable MD Chandrika Lee Primary Care Provider [phone] Perlita Lawrence Referring Unavailable Hoderik, Dr. Chandrika Tineo Primary Care Unavail able Perlita Lawrence Attending Unavailable Perlita Lawrence Referring Unavailable Hoderik, Dr. Chandrika Tineo Primary Care Unavail able Perlita Lawrence Attending Unavailable PERLITA LAWRENCE Attending Unavailable Hoy, Dr. Chandrika Tineo Primary Care Unavail able HOY ., DR OQUENDO Primary Care Unavailable SCHRADER ., DR ARAUJO Admitting Unavailable SCHRADER ., DR ARAUJO Attending Unavailable HOY ., DR OQUENDO Primary Care Unavailable HOY ., DR OQUENDO Consulting Unavailable HOY ., DR OQUENDO Attending Unavailable HOY ., DR OQUENDO Admbrianna Unavailable SCHRADER ., DR ARAUJO Admitting Unavailable HOY ., DR OQUENDO Consulting Unavailable HOY ., DR OQUENDO Primary Care Unavailable SCHRADER ., DR ARAUJO Attending Unavailable SCHRADER ., DR ARAUJO Consulting Unavailable HOY ., DR OQUENDO Consulting Unavailable HOY ., DR OQUENDO Attending Unavailable HOY ., DR OQUENDO Admitting Unavailable HOY ., DR OQUENDO Primary Care Unavailable HAY ., DR BERGMAN Consulting Unavailable DARAMOLA AKSHAT Consulting Unavailable HOY ., DR OQUENDO Primary Care Unavailable SCHRADER ., DR ARAUJO Admitting Unavailable SCHRADER ., DR ARAUJO Consulting Unavailable SCHRADER ., DR ARAUJO Attending Unavailable WEST, DR DEVYN Nunn Consulting Unavailable DEV GALLEGOS Consulting Unavailable ERIC GARCIA Consulting Unavailable TISH KENDALL Admitting Unavailable TISH KENDALL Attending Unavailable GAGANY ., DR OQUENDO Primary Care Unavailable MIRELA, DR DEVYN Nunn Consulting Unavailable TISH KENDALL Attending Unavailable TISH KENDALL Admitting Unavailable HOY ., DR OQUENDO Primary Care Unavailable TISH KENDALL Consulting Unavailable HOY ., DR OQUENDO Primary Care Unavailable HOY ., DR OQUENDO Consulting Unavailable HOY ., DR OQUENDO Attending Unavailable HOY ., DR OQUENDO Admitting Unavailable HOY ., DR OQUENDO Primary Care Unavailable HOY ., DR OQUENDO Consulting Unavailable HOY ., DR OQUENDO Attending Unavailable HOY ., DR OQUENDO Admitting Unavailable HOY ., DR OQUENDO Primary Care Unavailable SCHRADER ., DR ARAUJO Admitting Unavailable SCHRADER ., DR ARAUJO Consulting Unavailable SCHRADER ., DR ARAUJO Attending Unavailable EXETER, DR DEVYN Nunn Consulting Unavailable Semaskiene, Jessica Admitting Unavailable Semaskiene, Jessica Attending Unavailable Hoy, Chandrika M Primary Care Unavailable Be Azul Consulting Unavailabl e Hoy, Chandrika M Primary Care Unavailable Hoy, Chandrika M Attending Unavailable Hoy, Chandrika M Admitting Unavailable Laffay, Carter Attending Unavailable Hoy, Chandrika M Primary Care Unavailable Laffay, Carter Admitting Unavailable Hoy, Chandrika M Primary Care Unavailable Laffay, Carter Admitting Unavailable Laffay, Carter Attending Unavailable Laffay, Carter Attending Unavailable Hoy, Chandrika M Primary Care Unavailable Laffaderik, Carter Admitting Unavailable Be Azul Attending Unavailabl e Hoy, Chandrika M Primary Care Unavailable Be Azul Admitting Unavailabl e Hoy, Chandrika M Primary Care Unavailable Tupa, Van M Admitting Unavailable Tupa, Van M Attending Unavailable Hoy, Chandrika M Primary Care Unavailable Noman Armando Admitting Unavailable Noman Armando Attending Unavailable Hoy, Chandrika M Primary Care Unavailable Dominik Vanegas Admitting Unavailable Dominik Vanegas Attending Unavailable Semaskiene, Jessica Attending Unavailable Hoy, Chandrika M Primary Care Unavailable Semaskiene, Jessica Admitting Unavailable Semaskiene, Jessica Attending Unavailable Finn Vo Consulting Unavailable Hoy, Chandrika M Primary Care Unavailable Jarad Mcmillan Admitting Unavailable Be Azul Consulting UnavailVan Cain Attending Unavailable Van SCHRADER Attending Unavailable Van SCHRADER Attending Unavailable TISH KENDALL Attending Unavailable TISH KENDALL Admitting Unavailable TISH KENDALL Attending Unavailable Van SCHRADER Attending Unavailable Allergies Allergy Classification Reported Allergen(s) Allergy Type Date of Onset Reaction(s) Facility Opioid Agonists (2 sources) Morphine Drug Allergy 4 Vomiting [facility] (12 sources) Amoxicillin / Clavulanate; Translations: [amoxicillin-clav ulanate] Drug Allergy Unknown (qualifier value) [facility] (7 sources) iron polysaccharide; Translations: [iron polysaccharide] Drug Allergy Unknown (qualifier value) [facility] [place] (16 sources) levoFLOXacin; Translations: [levofloxacin] Drug Allergy 2 Eruption (morphologic abnormality), Unknown (qualifier value) [facility] (16 sources) Morphine; Translations: [morphine] Drug Allergy 2 Unknown (qualifier value) [facility] (20 sources) traMADol; Translations: [tramadol] Drug Allergy 2 Unknown (qualifier value) [facility] (10 sources) Amoxicillin; Translations: [amoxicillin] Drug Allergy 2 [facility] (10 sources) Clavulanate; Translations: [clavulanic acid] Drug Allergy 2 [facility] (10 sources) Sodium ferric gluconate complex; Translations: [sodium ferric gluconate complex] Drug Allergy 2 [facility] (10 sources) Sucrose; Translations: [sucrose] Drug Allergy 2 [facility] (8 sources) Vancomycin; Translations: [vancomycin] Drug Allergy 2 [facility] (6 sources) Vancomycin Cross Reactors; Translations: [Vancomycin Cross Reactors] Allergy to drug (finding) [facility] [address] DO Work Phone: (5 sources) Iron Dextran SOLN; Translations: [Iron Dextran SOLN] Allergy to drug (finding) [facility] [address] DO Work Phone: (1 source) Amoxicillin / Clavulanate Drug Allergy 7 [facility] (2 sources) levoFLOXacin Drug Allergy 7 [facility] (2 sources) Morphine Drug Allergy [facility] (2 sources) NSAIDs Drug allergy (disorder) 7 [facility] (2 sources) traMADol Drug Allergy 7 [facility] (1 source) Nikunj-Iron Drug allergy (disorder) 0 [facility] (1 source) levoFLOXacin Drug Allergy 3 [facility] (1 source) Morphine Drug Allergy 3 [facility] (1 source) traMADol Drug Allergy 3 [facility] Medications Current Medications Medication Drug [...] / HYDROcodone bitartrate 5 mg oral tablet (19 sources) Opioid Agonist Start: 05-10-2023 acetaminophen-hy drocodone 325 mg-5 mg oral tablet Refill(s) 0 Start Date: 05/10/23 Status: Ordered Start: 08-09-2022 take 1 tablet by aguilar th every four hours Hydrocodone-Acetaminophen Active 1 TAB P O Q4H 42 7 August 09, 2022 Start: 08-02-2022 take 2 tablets by mo uth every six hours Hydrocodone-Acetaminophen Active 2 TAB P O Q6H 40 7 August 17, 2022 Start: 05-30-2022 take 1 tablet by aguilar th twice daily Hydrocodone-Acetaminophen Active 1 TAB P O Twice daily May 30, 2022 12:00am Start: 04-10-2017 End: 05-12-2022 take 1 tablet by mouth twice daily Hydrocodone-Acetaminophen ([place]) 5-325 mg Tablet Discontinued 1 TAB PO Twice daily April 09, 2017 11:00pm May 12, 2022 4:21pm Start: 04-10-2017 take 1 tablet by aguilar th every four hours Hydrocodone-Acetaminophen ([place]) 5-325 mg Tablet Active 1 TAB PO [...] Allergen Start: 08-17-2022 Dibucaine Active 1 APPLIC KS Three times daily August 17, 2022 12:00am [...] Ordered folic acid 1 mg oral tablet (6 sources) Start: 02-04-2021 take 1 tablet by mouth once daily folic acid 1 mg Tab 1 mg = 1 tab(s), Oral, Daily Start Date: 02/04/21 Status: Ordered hydroCHLOROthiazide 12.5 mg oral capsule (1 source) Thiazide Diuretic Start: 02-20-2024 take 1 capsule by mouth once daily hydrochlorothiazide 12.5 mg Cap 12.5 mg = 1 cap(s), Oral, Daily, # 90 cap(s), Refills(s) 0, [facility]acy: [facility], 160, cm, 05/10/23 13:32:00 EST, Height/Length Dosing, 58, kg, 05/10/23 13:32:00 EST, Weight Dosing Start Date: 02/20/24 Status: Ordered hyoscyamine sulfate 0.125 mg oral [...] Status: Ordered L. Gasseri-B. Bifidum-B Long um ([employer]) 1.5 billion cell Capsule (9 sources) Start: 04-10-2017 L. Gasseri-B. Bifidum-B Longum ([employer]) 1.5 billion cell Capsule Active 1.5 TAB PO Daily April 09, 2017 11:00pm Start: 04-10-2017 L. Gasseri-B. Bifidum-B Longum ([employer]) 1.5 billion cell Capsule Active 1.5 TAB [...] Daily, # 30 tab(s), Refills(s) 0, Pharmacy: [facility], 160, cm, 02/04/21 15:55:00 EDT, Height/Length Dosing, 57.3, kg, 02/04/21 15:55:00 EDT, Weight Dosing Start Date: 02/04/21 Status: Ordered N[facility] (6 sources) Start: 02-04-2021 [facility] Oral, Daily, Refill(s) 0 Start Date: [...] Chloride Dis continued 20 MEQ PO Daily 10 February 01, 2021 11:00pm July 15, 2021 8:11am SUMAtriptan 100 mg oral tablet (15 sources) Serotonin-1b and Serotonin-1d Receptor Agonist Start: [...] if needed Vitamin B Complex oral capsule (6 sources) Start: 02-04-2021 Vitamin B Comp navneet oral capsule Oral, Daily, Refill(s) 0 Start Date: 02/04/21 Status: Ordered vitamin b12 1 mg/ml injectable solution (17 sources) Vitamin B12 Start: 05-10-2023 cyanocobalamin 1000 mcg/mL Inj Refills(s) 0 Start Date: 05/10/23 Status: Ordered Start: 04-01-2022 End: 07-19-2022 Cyanocobalamin (Vitamin B-12 ) Active 1000 MCG IM every month July 19, 2022 3:36pm 1000 mcg IM daily x5 days then q. weekly x4 weeks then q. monthly Vitamin Deficien cy System-B12 1000 MCG/ML Injection Kit once weekly Quantity: 0 Refills: 0 Ordered: 26-Jul-2022 DO Active Completed/Discontinued Medications Medication Drug Class(es) Dates Sig (Normalized) Sig (Original) cephalexin 250 mg oral tablet (20 sources) Cephalosporin Antibacterial Start: 10-06-2022 take 1 tablet by mouth once Keflex 250 mg Cap 250 mg = 1 cap(s), Oral, Once, 1 tab after sexual activity, # 15 tab(s), Refills(s) 3, Pharmacy: [facility], 160, cm, 10/06/22 14:54:00 EDT, Height/Length Dosing, 58, kg, 10/06/22 14:54:00 EDT, Weight Dosing Start Date: 10/06/22 Status: Ordered Start: 10-06-2022 take 1 tablet by mouth once Ke flex 250 mg Cap 250 mg = 1 cap(s), Oral, Once, 1 tab after sexual activity, # 15 tab(s), Refills(s) 3, Pharmacy: [facility], 160, cm, 10/06/22 14:54:00 EDT, Height/Length [...] 09, 2022 2:33pm 21 day ethinyl estradiol 0.379327 mg/hr / etonogestrel 0.005 mg/hr vaginal system [...] End: 05-30-2022 Hydrocortisone Acetate Discontinued 25 MG KS Twice daily 18 May 12, 2022 12:00am May 30, 2022 [...] EVERY 4-6 HOURS January 20, 2021 12:00am potassium bicarbonate 25 meq effervescent oral tablet (1 source) Start: 05-23-2023 take 1 tablet by mouth twice daily Klor-Con/EF 25 mEq oral tablet, effervescent 25 mEq = 1 tab(s), Oral, BID, # 60 tab(s), Refills(s) 11, Pharmacy: [facility], 160, cm, 05/10/23 13:32:00 EST, Height/Length Dosing, 58, kg, 05/10/23 13:32:00 EST, Weight Dosing Start Date: 05/23/23 Status: Ordered promethazine hydrochloride 25 mg oral tablet (9 sources) Phenothiazine Start: 07-15-2021 End: 03-27-2022 take 25 mg by mouth three times daily Promethazine Discontinued 25 MG PO Three times daily 21 July 15, 2021 12:00am March 27, 2022 12:07pm [...] Trimethoprim Discontinued 1 TAB PO Twice daily 24 January 20, 2021 11:00pm February 02, 2021 7:37am vancomycin 125 mg oral capsule (7 sources) Glycopeptide Antibacterial Start: 04-01-2022 End: 05-09-2022 take 125 mg by mouth four times daily Vancomycin Discontinued 125 MG PO Four times daily 56 14 March 31, 2022 11:00pm May 09, 2022 2:33pm Problems Active Problems Problem Classification Problem Date Documented Date Episodic/Chronic Abdominal pain (6 sources) Flank pain 04-06-2021 Episodic Bacterial infection; unspecified site (2 sources) Unspecified Escherichia coli [E. coli] as the cause of diseases classified elsewhere; Translations: [Other specified bacterial agents as the cause of diseases classified elsewhere] Onset: 04-21-20 Episodic Biliary tract disease (6 sources) Gallstone 02-04-2021 Episodic Calculus of urinary tract (20 sources) Kidney stone; Translations: [Calculus of kidney] Onset: 01-08-2002-04-2021 Episodic Cardiac dysrhythmias (7 sources) Other specified cardiac arrhythmias; Translations: [Other specified cardiac dysrhythmias] Onset: 03-25-2003-25-2005 Chronic Cardiac dysrhythmias (20 sources) Tachycardia; Translations: [Palpitations] Onset: 10-02-1902-04-2021 Episodic Chronic kidney disease (7 sources) Chronic kidney disease; Translations: [Chronic kidney [...] disorders (20 sources) Hypokalemia; Translations: [Hypokalemia] Onset: 05-09-20 22 03-27-2022 Episodic Headache; including migraine (15 sources) Headache; Translations: [Headache] 02-04-2021 Episodic Nausea and vomiting (9 sources) Nausea and vomiting; Translations: [Nausea with vomiting, unspecified] 10-24-2021 Episodic Other aftercare (9 sources) Drug therapy finding; 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] 07-29-2019 Episodic Other aftercare (1 source) Other usp (current) drug therapy; Translations: [OTH FDC CURRENT DRUG THERAPY] Onset: 11-25-19 Episodic Other and ill-defined heart disease (6 sources) Heart disease 02-04-2021 Chronic Other diseases of kidney and ureters (6 sources) Hydronephrosis due to ureteral obstruction 02-04-2021 Episodic Other diseases of kidney and ureters (9 sources) Hydroureteronephrosis ; Translations: [Unspecified hydronephrosis] 01-19-2021 Episodic Other diseases of kidney and ureters (1 source) Hydronephrosis 05-10-2023 Episodic Other gastrointestinal disorders (15 sources) Irritable bowel syndrome; Translations: [Irritable bowel syndrome without diarrhea] 02-04-2021 Chronic Other nervous system disorders (1 source) Acute postoperative pain; Translations: [Other acute postprocedural pain] 08-09-2022 Episodic Other nutritional; endocrine; and metabolic disorders (1 source) Intestinal disaccharidase deficiency; 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, unspecified] Onset: 10-29-1910-29-2003 Chronic Other nutritional; endocrine; and metabolic disorders (1 source) Hypomagnesemia; Translations: [HYPOMAGNESEMIA] Onset: 11-25-19 Chronic Phlebitis; thrombophlebitis and thromboembolism (16 sources) H/O: thrombosis; Translations: [Deep venous thrombosis] [...] [Syncope and collapse] Onset: 10-02-19 Episodic Unclassified (6 sources) Extended spectrum beta-lactamase producing bacteria carrier Onset: 04-06-2004-09-2021 Comment on above: ESBL E coli in urine 04/06/2021 ESBL E coli in urine 05/10/2023 Unclassified (1 source) Poisoning by unspecified narcotics, [...] [Urinary tract infection, site not specified] Onset: 10-11-20 22 Viral infection (9 sources) Disease caused by [...] Test Name Value Interpretation Reference Range Facility Provider Letteron 04-09-2024 Provider Letter Provider Letter April 09, 2024 RAQUEL CORREA [address] [place] [address] : 1985 Dear Raquel , We have been trying to reach you with no success. You have an appointment with 04/10/[address] Schrader which will need to be rescheduled since he/she will be out of the office that day. Please contact the office at the number listed below to get this appointment rescheduled at your earliest convenience. Also at this time if you could provide us with your updated contact information we would appreciate it. Thank you for your prompt attention to this matter. Sincerely, [facility] [address] [place] [address] [facility] Provider Letteron 03-23-2024 Provider Letter Provider Letter March 23, 2024 [place] [address] : 1985 C[place] Raquel, We have been trying to reach you with no success. The phone number that we have on file is no longer in service, we will need updated contact information for you. You have an appointment with Dr. Van Schrader on 04/10/2024 which will need to be rescheduled since he will be out of the office that day. Please contact the office at the number listed below to get this appointment rescheduled at your earliest convenience. Thank you for your prompt attention to this matter. Sincerely, [facility] [address] [place] [address] [facility] Lab Reportson 07-28-2023 Lab Reports [id number]#1.00TIFF [facility] Reportson 07-22-2023 Lab Reports [id number]#1.00TIFF [facility] 07-20-2023 Lab Reports [id number]#1.00TIFF [facility] Operative Reporton 3 Operative Report [id number]#1.00TIFF [facility] Consent for Procedure/Surger yon 05-26-2023 Consent for Procedure/Surgery [id number]#1.00TIFF [facility] Provider Letteron 05-26-2023 Provider Letter (Inserted Image. Rajni ble to display) May 26, 2023 RAQUEL CORREA [address] [place] [address] : 1985 To Whom It May Concern, Please excuse above patient from work. Date of Illness: From: 05/23/2023 To: 05/27/2023 May Return to Work On: 05/28/2023 Restrictions: None Comments: Patient had a surgical procedure done on 05/23/[address] Van Schrader. She may return to work 05/28/2303 without restrictions. Sincerely, [facility] Specialist [facility] Lab Reportson 05-24-2023 Lab Reports [id number]#1.00TIFF [facility] Operative Reporton 3 Operative Report [id number]#1.00TIFF [facility] Lab Reportson 05-23-2023 Lab Reports [id number]#1.00TIFF [facility] Consent for Procedure/Surger yon 05-13-2023 Consent for Procedure/Surgery [id number]#1.00TIFF [facility] C Urineon 05-12-2023 Bacteria identified Cx Nom (U) Microbiology PROCEDURE: Urine Culture [R1] SOURCE: U CleanCatch BODY SITE: COLLECTED DATE/TIME: 05/10/2023 14:08 EST RECEIVED DATE/TIME: 05/10/2023 19:56 EST START DATE/TIME: 05/10/2023 19:56 EST FREE TEXT SOURCE: FAVIAN TY, TISH KENDALL PA-C, TISH Grijalva FINAL REPORTS Final Report [...] Locations R1: This test was performed at: [facility], [address] [place] [address], [facility] , , Normal [facility] Comment on above: Performed By: #### 2 [id number] ####[facility] [id number] [place] [address] Consent for Procedure/Surger yon 05-12-2023 Consent for Procedure/Surgery [id number]#1.00TIFF [facility] Insurance Correspondenceon 1 07-12-2022 Insurance Correspondence [id number]#1.00TIFF [facility] RAD - CT Reporton 05-11-2023 RAD - CT Report [id number]#1.00TIFF Normal [facility] Patient Educationon 05-10-20 Patient Education Urology Kidney [...] these instructions at home: Medicines ? Take [id number] and prescription medicines only as told by [...] provider. Document Revised: 02/15/2022 Document Reviewed: 02/15/2022 [employer] Patient Education ? [address] [facility] Urology Office/Clinic Noteon 05-10-2023 Urology Office/Clinic [...] kidney) S/p R ESWL 01/07/[address] [facility] 10/24/21 shows two 5 mm R renal [...] Contact Information RACIEL ANDERSON, Van Burroughs, URL [facility] [place] [address]- Additional Instructions: Schedule laser litho Patient Education Kidney Stones, [id number] Documentation recorded by the scribvalentine Gross accurately reflects the services(s) I performed and decisions made by me. Authenticated by Tish Kendall PA-C on 05/10/2023 13:59:15. ISanna, personally scribed for Tish Kendall PA-C on 05/10/2023 13:52:10. . Problem List/Past Medical History Ongoing Anemia Chronic kidney disease Crohn disease ESBL E. coli carrier Flank pain Gall stone Headache Heart disease History of blood clots Hydronephrosis IBS (irritable bowel syndrome) Kidney stone Recurrent UTI Tachycardia (more content not included)... Normal [facility] Comment on above: Result Comment: Elec tronically Signed By: TISH KENDALL PA-C\.br\Date and Time Signed: 05/10/23 13:59 EST\.br\Electronically Co-Signed By: Sanna Gross\.br\Date and Time Co-Signed: 05/10/23 13:52 EST CULTURE URINEon 11-17-2022 CULTURE URINE Isolate 1 [...] Trimethoprim/Sulfamethoxaz ole <=20 S F Normal [facility] Comment on above: Performed By: #### U AMIC #### [facility] [address] [place] [address] Dr. Tori Thomas CBC AUTO DIFFon 11-15-2022 BASO # 0.0 103/ul Normal 0.0-0.1 [facility] Comment on above: Performed By: #### P T, PTT #### [facility] [address] [place] [address] Dr. Tori Thomas Basophils/100 WBC (Bld) 0.2 % Normal 0.2-2.0 [facility] Comment on above: Performed By: #### P T, PTT #### [facility] [address] [place] [address] Dr. Tori Thomas EO # 0.0 103/ul Normal 0.0-0.7 [facility] Comment on above: Performed By: #### P T, PTT #### [facility] [address] [place] [address] Dr. Tori Thomas Eosinophils/100 WBC (Bld) 0.0 % Critically low 0.9-7.0 [facility] Comment on above: Performed By: #### P T, PTT #### [facility] [address] [place] [address] Dr. Tori Thomas Erythrocyte distribution width (RBC) [Ratio] 14.0 % Normal 11.0-15.0 [facility] Comment on above: Performed By: #### P T, PTT #### [facility] [address] [place] [address] Dr. Tori Thomas Hematocrit (Bld) [Volume fraction] 36.8 % Normal 36.0-48.0 [facility] Comment on above: Performed By: #### P T, PTT #### [facility] [address] [place] [address] Dr. Tori Thomas Hemoglobin (Bld) [Mass/Vol] 12.2 g/dL Normal 12.0-16.0 [facility] Comment on above: Performed By: #### P T, PTT #### [facility] [address] [place] [address] Dr. Tori Thomas IG # 0.03 10e3/ul Normal 0.00-0.03 [facility] Comment on above: Performed By: #### P T, PTT #### [facility] [address] [place] [address] Dr. Tori Thomas IG % 0.3 % Normal 0.0-0.5 [facility] Comment on above: Performed By: #### P T, PTT #### [facility] [address] [place] [address] Dr. Tori Thomas LYMPH # 1.9 103/ul Normal 1.2-3.8 [facility] Comment on above: Performed By: #### P T, PTT #### [facility] [address] [place] [address] Dr. Tori Thomas Lymphocytes/100 WBC (Bld) 17.2 % Critically low 20.5-60.0 [facility] Comment on above: Performed By: #### P T, PTT #### [facility] [address] [place] [address] Dr. Tori Thomas MANUAL DIFF REQ NO Normal [facility] Comment on above: Performed By: #### P T, PTT #### [facility] [address] [place] [address] Dr. Tori Thomas MCH (RBC) [Entitic mass] 28.8 pg Normal 26.7-34.0 [facility] Comment on above: Performed By: #### P T, PTT #### [facility] [address] [place] [address] Dr. Tori Thomas MCHC (RBC) [Mass/Vol] 33.2 g/dL Normal 29.9-35.2 [facility] Comment on above: Performed By: #### P T, PTT #### [facility] [address] [place] [address] Dr. Tori Thomas MCV (RBC) [Entitic vol] 87.0 fL Normal 81.0-99.0 [facility] Comment on above: Performed By: #### P T, PTT #### [facility] [address] [place] [address] Dr. Tori Thomas MONO # 0.5 103/ul Normal 0.3-0.8 [facility] Comment on above: Performed By: #### P T, PTT #### [facility] [address] [place] [address] Dr. Tori Thomas Monocytes/100 WBC (Bld) 4.0 % Normal 1.7-12.0 [facility] Comment on above: Performed By: #### P T, PTT #### [facility] [address] [place] [address] Dr. Tori Thomas NEUT # 8.8 103/ul Critically high 1.4-6.5 [facility] Comment on above: Performed By: #### P T, PTT #### [facility] [address] [place] [address] Dr. Tori Thomas Neutrophils/100 WBC (Bld) 78.3 % Critically high 43.0-75.0 [facility] Comment on above: Performed By: #### P T, PTT #### [facility] [address] [place] [address] Dr. Tori Thomas Platelet mean volume (Bld) [Entitic vol] 9.8 fL Normal 9.5-13.5 [facility] Comment on above: Performed By: #### P T, PTT #### [facility] [address] [place] [address] Dr. Tori Thomas PLT 317 103/ul Normal 150-450 [facility] Comment on above: Performed By: #### P T, PTT #### [facility] [address] [place] [address] Dr. Tori Thomas RBC 4.23 106/ul Normal 4.20-5.40 [facility] Comment on above: Performed By: #### P T, PTT #### [facility] [address] [place] [address] Dr. Tori Thomas WBC 11.3 103/ul Critically high 4.0-11.0 [facility] Comment on above: Performed By: #### P T, PTT #### [facility] [address] [address] [address] Tori Thomas Complete Blood Count Auto Di ffon 11-15-2022 Basophils (Bld) [#/Vol] 0.0 10*3/uL Normal 0.0-0.2 [facility] Comment on above: Result Comment: PERF ORMED BY: [place] [address] PATHOLOGIST CRACK OFF PERSON RADHA GARCIA M.D. Performed By: #### C BC, MG, CMP, ESR, LIPASE, TSH3 #### [address] Basophils/100 WBC (Bld) 0.3 % Normal . [facility] Comment on above: Performed By: #### C BC, MG, CMP, ESR, LIPASE, TSH3 #### [address] Eosinophils (Bld) [#/Vol] 0.0 10*3/uL Normal 0.0-0.45 [facility] Comment on above: Performed By: #### C BC, MG, CMP, ESR, LIPASE, TSH3 #### [address] Eosinophils/100 WBC (Bld) 0.3 % Normal . [facility] Comment on above: Performed By: #### C BC, MG, CMP, ESR, LIPASE, TSH3 #### [address] Erythrocyte distribution width (RBC) [Ratio] 14.6 % Normal 11.9-15.3 [facility] Comment on above: Performed By: #### C BC, MG, CMP, ESR, LIPASE, TSH3 #### [address] Hematocrit (Bld) [Volume fraction] 36.1 % Normal 34.0-46.4 [facility] Comment on above: Performed By: #### C BC, MG, CMP, ESR, LIPASE, TSH3 #### [place] [address] [place] Hemoglobin (Bld) [Mass/Vol] 12.1 g/dL Normal 11.8-15.4 [facility] Comment on above: Performed By: #### C BC, MG, CMP, ESR, LIPASE, TSH3 #### [address] Lymphocytes (Bld) [#/Vol] 1.7 10*3/uL Normal 1.00-4.8 [facility] Comment on above: Performed By: #### C BC, MG, CMP, ESR, LIPASE, TSH3 #### [address] Lymphocytes/100 WBC (Bld) 14.8 % Normal . [facility] Comment on above: Performed By: #### C BC, MG, CMP, ESR, LIPASE, TSH3 #### [address] MCH (RBC) [Entitic mass] 29.0 pg Normal 24.7-34.3 [facility] Comment on above: Performed By: #### C BC, MG, CMP, ESR, LIPASE, TSH3 #### [address] MCV (RBC) [Entitic vol] 86.4 fL Normal 80-100 [facility] Comment on above: Performed By: #### C BC, MG, CMP, ESR, LIPASE, TSH3 #### [address] Mean Corpuscular HGB Conc 33.6 g/dL Normal 32.0-35.0 [facility] Comment on above: Performed By: #### C BC, MG, CMP, ESR, LIPASE, TSH3 #### [address] Monocytes (Bld) [#/Vol] 0.5 10*3/uL Normal 0.0-0.8 [facility] Comment on above: Performed By: #### C BC, MG, CMP, ESR, LIPASE, TSH3 #### [address] Monocytes/100 WBC (Bld) 17.56 % Normal 0.00-20.00 [facility] Comment on above: Performed By: #### C BC, MG, CMP, ESR, LIPASE, TSH3 #### [address] Monocytes/100 WBC (Bld) 4.3 % Normal . [facility] Comment on above: Performed By: #### C BC, MG, CMP, ESR, LIPASE, TSH3 #### [address] Neutrophils (Bld) [#/Vol] 9.1 10*3/uL High 1.8-7.7 [facility] Comment on above: Performed By: #### C BC, MG, CMP, ESR, LIPASE, TSH3 #### [address] Neutrophils/100 WBC (Bld) 80.3 % Normal . [facility] Comment on above: Performed By: #### C BC, MG, CMP, ESR, LIPASE, TSH3 #### [address] NRBC% 0.0 /100{WBC} Normal 0-0.5 [facility] Comment on above: Performed By: #### C BC, MG, CMP, ESR, LIPASE, TSH3 #### [address] Platelet mean volume (Bld) [Entitic vol] 7.9 fL Normal 6.3-10.7 [facility] Comment on above: Performed By: #### C BC, MG, CMP, ESR, LIPASE, TSH3 #### [address] Platelets (Bld) [#/Vol] 294 10*3/uL Normal 150-450 [facility] Comment on above: Performed By: #### C BC, MG, CMP, ESR, LIPASE, TSH3 #### [address] RBC (Bld) [#/Vol] 4.18 10*6/uL Normal 3.60-5.00 [facility] Comment on above: Performed By: #### C BC, MG, CMP, ESR, LIPASE, TSH3 #### [address] WBC (Bld) [#/Vol] 11.3 10*3/uL Normal 3.8-11.6 [facility] Comment on above: Performed By: #### C BC, MG, CMP, ESR, LIPASE, TSH3 #### [address] Comprehensive Metabolic Pane carlos 11-15-2022 Albumin [Mass/Vol] 4.1 g/dL Normal 3.5-5.7 [facility] Comment on above: Performed By: #### C BC, MG, CMP, ESR, LIPASE, TSH3 #### [address] Albumin/Globulin [Mass ratio] 1.6 {ratio} Normal [facility] Comment on above: Performed By: #### C BC, MG, CMP, ESR, LIPASE, TSH3 #### [address] ALP [Catalytic activity/Vol] 48 U/L Normal 34-104 [facility] Comment on above: Performed By: #### C BC, MG, CMP, ESR, LIPASE, TSH3 #### [address] ALT [Catalytic activity/Vol] 27 U/L Normal 7-52 [facility] Comment on above: Performed By: #### C BC, MG, CMP, ESR, LIPASE, TSH3 #### [address] Anion gap [Moles/Vol] 10.2 mmol/L Normal 6.0-15.0 [facility] Comment on above: Performed By: #### C BC, MG, CMP, ESR, LIPASE, TSH3 #### [address] AST [Catalytic activity/Vol] 25 U/L Normal 13-39 [facility] Comment on above: Performed By: #### C BC, MG, CMP, ESR, LIPASE, TSH3 #### [address] Bilirubin [Mass/Vol] 0.5 mg/dL Normal 0.3-1.0 [place] Comment on above: Performed By: #### C BC, MG, CMP, ESR, LIPASE, TSH3 #### [address] Calcium [Mass/Vol] 8.5 mg/dL Low 8.6-10.3 [facility] Comment on above: Performed By: #### C BC, MG, CMP, ESR, LIPASE, TSH3 #### [address] Chloride [Moles/Vol] 106 mmol/L Normal 98-107 [place] Comment on above: Performed By: #### C BC, MG, CMP, ESR, LIPASE, TSH3 #### [address] CO2 [Moles/Vol] 25.2 mmol/L Normal 21.0-31.0 [facility] Comment on above: Performed By: #### C BC, MG, CMP, ESR, LIPASE, TSH3 #### [address] Creatinine [Mass/Vol] 0.75 mg/dL Normal 0.60-1.20 [facility] Comment on above: Performed By: #### C BC, MG, CMP, ESR, LIPASE, TSH3 #### [address] Creatinine Clr Calc Pharmacy 86.61 Normal [facility] Comment on above: Result Comment: PERF ORMED BY: [place] [address] PATHOLOGIST CRACK OFF PERSON RADHA GARCIA M.D. Performed By: #### C BC, MG, CMP, ESR, LIPASE, TSH3 #### [address] GFR/1.73 sq M.predicted MDRD (S/P/Bld) [Vol rate/Area] mL/min/{1.73_m2} [facility] Comment on above: Performed By: #### C BC, MG, CMP, ESR, LIPASE, TSH3 #### [facility] [address] Globulin (S) [Mass/Vol] 2.6 g/dL [facility] Comment on above: Performed By: #### C BC, MG, CMP, ESR, LIPASE, TSH3 #### [facility] [address] Glucose [Mass/Vol] 81 mg/dL Normal 70-100 [facility] Comment on above: Result Comment: [place] Glucose Reference Range is dependent on time and content of last meal. Glucose of more than 200 mg/dL in a nonstressed, ambulatory subject supports the diagnosis of Diabetes Mellitus. ADA recommended reference range Performed By: #### C BC, MG, CMP, ESR, LIPASE, TSH3 #### [facility] [address] Potassium [Moles/Vol] 3.4 mmol/L Low 3.5-5.1 [facility] Comment on above: Performed By: #### C BC, MG, CMP, ESR, LIPASE, TSH3 #### [facility] [address] Protein [Mass/Vol] 6.7 g/dL Normal 6.4-8.9 [facility] Comment on above: Performed By: #### C BC, MG, CMP, ESR, LIPASE, TSH3 #### [facility] [address] [place] [address] [place] Sodium [Moles/Vol] 138 mmol/L Normal 136-145 [facility] Comment on above: Performed By: #### C BC, MG, CMP, ESR, LIPASE, TSH3 #### [facility] [address] [place] [address] [place] Urea nitrogen [Mass/Vol] 5 mg/dL Low 7-25 [facility] Comment on above: Performed By: #### C BC, MG, CMP, ESR, LIPASE, TSH3 #### [facility] [address] DRUG SCREEN RAPID (URINE)on 11-15-2022 AMP Negative Normal NEGATIVE [facility] Comment on above: Performed By: #### D RUGRPD, ERUR, UMICRO #### [facility] [address] [address] [address] Tori Thomas BAR Negative Normal NEGATIVE [facility] Comment on above: Performed By: #### D RUGRPD, ERUR, UMICRO #### [facility] [address] [address] [address] Tori Thomas BUP Negative Normal NEGATIVE [facility] Comment on above: Performed By: #### D RUGRPD, ERUR, UMICRO #### [facility] [address] [address] [address] Tori Thomas BZO Positive Abnormal NEGATIVE [facility] Comment on above: Performed By: #### D RUGRPD, ERUR, UMICRO #### [facility] [address] [address] [address] Tori Thomas HARESH Negative Normal NEGATIVE [facility] Comment on above: Performed By: #### D RUGRPD, ERUR, UMICRO #### [facility] [address] [address] [address] Tori Thomas CUT-OFFS SEE BELOW Normal [facility] Comment on above: Result Comment: AMP (Amphetamine): 500ng/mL, BAR (Barbituates): 200 ng/mL, BZO (Benzodiazepines): 150 ng/mL, BUP (Buprenorphine): 10 ng/mL, HARESH (Cocaine): 150 ng/mL, mAMP (Methamphetamine): 500 ng/mL, MTD (Methadone): 200 ng/mL, OPI (Opiates): 100 ng/mL, OXY (Oxycodone): 100 ng/mL, PCP (Phencyclidine): 25 ng/mL, PPX (Propoxyphene): 300 ng/mL, THC (Cannabinoids): 50 ng/mL, TCA (Trycyclic Antidepressants): 300 ng/mL Performed By: #### D RUGRPD, ERUR, UMICRO #### [facility] [address] [address] [address] Tori Thomas DRUG CUT HEADER DRUG CLASS TEST SYST EM CUT-OFF CONCENTRATIONS ARE FOLLOWS: Normal [facility] Comment on above: Performed By: #### D RUGRPD, ERUR, UMICRO #### [facility] [address] [address] [address] Tori Thoams mAMP Negative Normal NEGATIVE [facility] Comment on above: Performed By: #### D RUGRPD, ERUR, UMICRO #### [facility] [address] [address] [address] Tori Thomas MTD Negative Normal NEGATIVE [facility] Comment on above: Performed By: #### D RUGRPD, ERUR, UMICRO #### [facility] [address] [address] [address] Tori Thomas OPI Positive Abnormal NEGATIVE [facility] Comment on above: Performed By: #### D RUGRPD, ERUR, UMICRO #### [facility] [address] [address] [address] Tori Thomas OXY Positive Abnormal NEGATIVE [facility] Comment on above: Performed By: #### D RUGRPD, ERUR, UMICRO #### [facility] [address] [address] [address] Tori Thomas PCP Negative Normal NEGATIVE [facility] Comment on above: Performed By: #### D RUGRPD, ERUR, UMICRO #### [facility] [address] [address] [address] Tori Thomas PPX Negative Normal NEGATIVE [facility] Comment on above: Performed By: #### D RUGRPD, ERUR, UMICRO #### [facility] [address] [address] [address] Tori Thomas TCA Negative Normal NEGATIVE [facility] Comment on above: Performed By: #### D RUGRPD, ERUR, UMICRO #### [facility] [address] [address] [address] Tori Thomas THC Positive Abnormal NEGATIVE [facility] Comment on above: Performed By: #### D ANNE, AMANDAR, CASTILLOICRO #### [facility] [address] [address] [address] Tori Thomas Dipstick and Microscopicon 0 11-15-2022 Appearance (U) Turbid Critically abnormal Clear [facility] Comment on above: Order Comment: Name Collection Type:: Clean-Voided Midstream Performed By: #### C BC, MG, CMP, ESR, LIPASE, TSH3 #### [facility] [address] [place] [address] Bacteria,Urine 2+ High None Seen [facility] Comment on above: Order Comment: Name Collection Type:: Clean-Voided Midstream Performed By: #### C BC, MG, CMP, ESR, LIPASE, TSH3 #### [facility] [address] [place] [address] [place] Bilirubin,Urine Negative Normal Negative [facility] Comment on above: Order Comment: Name Collection Type:: Clean-Voided Midstream Performed By: #### C BC, MG, CMP, ESR, LIPASE, TSH3 #### [facility] [address] [place] [address] [place] Color (U) Yellow Normal Yellow [facility] Comment on above: Order Comment: Name Collection Type:: Clean-Voided Midstream Performed By: #### C BC, MG, CMP, ESR, LIPASE, TSH3 #### [facility] [address] [place] [address] [place] Glucose Ql (U) Normal Normal Normal [facility] Comment on above: Order Comment: Name Collection Type:: Clean-Voided Midstream Performed By: #### C BC, MG, CMP, ESR, LIPASE, TSH3 #### [facility] [address] [place] [address] [place] Hyaline Casts,Urine 0-8 Normal 0-8 [facility] Comment on above: Order Comment: Name Collection Type:: Clean-Voided Midstream Performed By: #### C BC, MG, CMP, ESR, LIPASE, TSH3 #### [address] Ketones Ql (U) Negative Normal Negative [facility] Comment on above: Order Comment: Name Collection Type:: Clean-Voided Midstream Performed By: #### C BC, MG, CMP, ESR, LIPASE, TSH3 #### [address] Leukocyte esterase Test strip Ql (U) 4+ High Negative [facility] Comment on above: Order Comment: Name Collection Type:: Clean-Voided Midstream Performed By: #### C BC, MG, CMP, ESR, LIPASE, TSH3 #### [address] Nitrite,Urine Positive High Negative [facility] Comment on above: Order Comment: Name Collection Type:: Clean-Voided Midstream Performed By: #### C BC, MG, CMP, ESR, LIPASE, TSH3 #### [address] Occult Blood,Urine 1+ High Negative [facility] Comment on above: Order Comment: Name Collection Type:: Clean-Voided Midstream Result Comment: PERF ORMED BY: [place] [address] PATHOLOGIST CRACK OFF PERSON RADHA GARCIA M.D. Performed By: #### C BC, MG, CMP, ESR, LIPASE, TSH3 #### [address] pH (U) 6.0 [pH] Normal 5.0-9.0 [facility] Comment on above: Order Comment: Name Collection Type:: Clean-Voided Midstream Performed By: #### C BC, MG, CMP, ESR, LIPASE, TSH3 #### [address] Protein (U) [Mass/Vol] 100 mg/dL High Negative [facility] Comment on above: Order Comment: Name Collection Type:: Clean-Voided Midstream Performed By: #### C BC, MG, CMP, ESR, LIPASE, TSH3 #### [address] [place] [address] [place] RBC,Urine 5-9 High 0-4 [facility] Comment on above: Order Comment: Name Collection Type:: Clean-Voided Midstream Performed By: #### C BC, MG, CMP, ESR, LIPASE, TSH3 #### [address] Specificy [place],Urine 1.015 Normal 1.001-1.03 0 [facility] Comment on above: Order Comment: Name Collection Type:: Clean-Voided Midstream Performed By: #### C BC, MG, CMP, ESR, LIPASE, TSH3 #### [address] Squamous Epithelial Cell,Urine 1-2 Normal 0-2 [facility] Comment on above: Order Comment: Name Collection Type:: Clean-Voided Midstream Performed By: #### C BC, MG, CMP, ESR, LIPASE, TSH3 #### [address] Urobilinogen,Urine Normal Normal Normal [facility] Comment on above: Order Comment: Name Collection Type:: Clean-Voided Midstream Performed By: #### C BC, MG, CMP, ESR, LIPASE, TSH3 #### [address] WBC,Urine Innumerable High 0-4 [facility] Comment on above: Order Comment: Name Collection Type:: Clean-Voided Midstream Performed By: #### C BC, MG, CMP, ESR, LIPASE, TSH3 #### [address] Yeast,Urine None Seen Normal None Seen [facility] Comment on above: Order Comment: Name Collection Type:: Clean-Voided Midstream Result Comment: PERF ORMED BY: [place] [address] PATHOLOGIST CRACK OFF PERSON RADHA GARCIA M.D. Performed By: #### C BC, MG, CMP, ESR, LIPASE, TSH3 #### [address] [place] [address] [place] Drug Screen,Urineon 11-16-19 Amphetamine Screen,Urine Negative Normal Negative [facility] Comment on above: Performed By: #### C BC, MG, CMP, ESR, LIPASE, TSH3 #### [address] Barbiturate Screen,Urine Negative Normal Negative [facility] Comment on above: Performed By: #### C BC, MG, CMP, ESR, LIPASE, TSH3 #### [address] Benzodiazepines Screen,Urine Negative Normal Negative [facility] Comment on above: Performed By: #### C BC, MG, CMP, ESR, LIPASE, TSH3 #### [address] Cannabinoid Screen,Urine Positive High Negative [facility] Comment on above: Result Comment: Thes e are unconfirmed results and should not be used for legal purposes. Drug Cut-Off Concentration: AMPH 1000 ng/mL CALIN 200 ng/mL LEONIDES 200 ng/mL COCM 300 ng/mL OP 300 ng/mL PCP 25 ng/mL THC 20 ng/mL PERFORMED BY: [place] [address] PATHOLOGIST CRACK OFF PERSON RADHA GARCIA M.D. Performed By: #### C BC, MG, CMP, ESR, LIPASE, TSH3 #### [address] Cocaine Screen,Urine Negative Normal Negative [place] Comment on above: Performed By: #### C BC, MG, CMP, ESR, LIPASE, TSH3 #### [address] Opiate Screen,Urine Positive High Negative [facility] Comment on above: Performed By: #### C BC, MG, CMP, ESR, LIPASE, TSH3 #### [address] Phencyclidine Screen,Urine Negative Normal Negative [facility] Comment on above: Performed By: #### C BC, MG, CMP, ESR, LIPASE, TSH3 #### [facility] [address] [place] [address] [place] ECG 12 lead ECGon 11-15-2022 ECG 12 lead ECG [facility] [place] [address] [place] [address] Electrocardiograph Report Signed Patient: Raquel Correa MR#: [id number] : 1985 Acct:[id number] Age/Sex: 37 / F ADM Date: 11/15/22 Loc: ER Room: Type: [facility] ER Attending Dr: Ordering Provider: Van Rosen [...] MUS Signed By Van Rosen DO 0106 Normal [facility] ER URINE PROFILEon 3 Bilirubin Ql (U) Negative Normal NEGATIVE [facility] Comment on above: Performed By: #### D DERIC RODRÍGUEZ UMICRO #### [facility] [address] [place] [address] Dr. Tori Thomas Clarity (U) CLEAR Normal CLEAR [facility] Comment on above: Performed By: #### D DERIC RODRÍGUEZ UMICRO #### [facility] [address] [address] [address] Tori Thomas Color (U) LT. YELLOW Normal YELLOW [facility] Comment on above: Performed By: #### D DERIC RODRÍGUEZ UMICRO #### [facility] [address] [address] [address] Tori NEAL A micrscopic examina tion will be performed if indicated. Normal [facility] Comment on above: Performed By: #### D DERIC RODRÍGUEZ UMICRO #### [facility] [address] [address] [address] Tori Thomas Glucose Ql (U) Negative Normal NEGATIVE [facility] Comment on above: Performed By: #### D DERIC RODRÍGUEZ UMICRO #### [facility] [address] [place] [address] Dr. Tori Thomas Hemoglobin Ql (U) SMALL Abnormal NEGATIVE [facility] Comment on above: Performed By: #### D DERIC RODRÍGUEZ UMICRO #### [facility] [address] [place] [address] Dr. Tori Thomas Ketones Ql (U) Negative Normal NEGATIVE [facility] Comment on above: Performed By: #### D DERIC RODRÍGUEZ UMICRO #### [facility] [address] [place] [address] Dr. Tori Thomas LEUKOCYTES MODERATE Abnormal NEGATIVE [facility] Comment on above: Performed By: #### D DERIC RODRÍGUEZ UMICRO #### [facility] [address] [place] [address] Dr. Tori Thomas Nitrite Ql (U) Positive Abnormal NEGATIVE [facility] Comment on above: Performed By: #### D DERIC RODRÍGUEZ UMICRO #### [facility] [address] [address] [address] Tori Thomas pH (U) 5.5 [pH] Normal 5-9 [facility] Comment on above: Performed By: #### D DERIC RODRÍGUEZ UMICRO #### [facility] [address] [place] [address] Dr. Tori Thomas SPEC GRAVITY >=1.030 Abnormal 1.005-<=1. 025 [facility] Comment on above: Performed By: #### D DERIC RODRÍGUEZ UMICRO #### [facility] [address] [address] [address] Tori Thomas UA PROTEIN TRACE Normal NEGATIVE/ TRACE [facility] Comment on above: Performed By: #### D DERIC RODRÍGUEZ UMICRO #### [facility] [address] [address] [address] Tori Thomas UR MICRO IND INDICATED Normal [facility] Comment on above: Performed By: #### D DERIC RODRÍGUEZ UMICRO #### [facility] [address] [address] [address] Tori Thomas Urobilinogen Qn (U) 0.2 {Diana'U}/dL Normal 0.2 - 1. 0 [facility] Comment on above: Performed By: #### D DERIC RODRÍGUEZ UMICRO #### [facility] [address] [address] [address] Tori Thomas ETHANOL (BLD ALC)on 11-16-19 23 ALC NOTE NOTE: 80 mg/dl is th e legal limit for a blood alcohol level Normal [facility] Comment on above: Performed By: #### P T, PTT #### [facility] [address] [address] [address] Tori Thomas Ethanol [Mass/Vol] mg/dL Normal [facility] Comment on above: Performed By: #### P T, PTT #### [facility] [address] [place] [address] Dr. Tori Thomas Ethyl Alcohol Profileon 10-26 Ethanol [Mass/Vol] mg/dL Normal [facility] Comment on above: Performed By: #### C BC, MG, CMP, ESR, LIPASE, TSH3 #### [facility] [address] [place] [address] [place] Percent Ethanol Not performed Normal [facility] Comment on above: Result Comment: PERF ORMED BY: [place] [address] PATHOLOGIST CRACK OFF PERSON RADHA GARCIA M.D. Performed By: #### C BC, MG, CMP, ESR, LIPASE, TSH3 #### [facility] [address] [id number] [facility] MAGNESIUMon 11-15-2022 Magnesium [Mass/Vol] 1.9 mg/dL Normal 1.8-2.4 [facility] Comment on above: Performed By: #### P T, PTT #### [facility] [address] [address] [address] Tori Thomas PROF CHEM 8 (BAS METB)on Anion gap [Moles/Vol] 13.5 mmol/L Normal [facility] Comment on above: Performed By: #### P T, PTT #### [facility] [address] [address] [address] Tori Thomas Calcium [Mass/Vol] 8.0 mg/dL Critically low 8.5-10.1 [facility] Comment on above: Performed By: #### P T, PTT #### [facility] [address] [place] [address] Dr. Tori Thomas Chloride [Moles/Vol] 108 mmol/L Critically high 98-107 [facility] Comment on above: Performed By: #### P T, PTT #### [facility] [address] [address] [address] Tori Thomas CO2 [Moles/Vol] 25.4 mmol/L Normal 21.0-32.0 [facility] Comment on above: Performed By: #### P T, PTT #### [facility] [address] [address] [address] Tori Thomas Creatinine [Mass/Vol] 0.79 mg/dL Normal 0.55-1.02 [facility] Comment on above: Performed By: #### P T, PTT #### [facility] [address] [place] [address] Dr. Tori Thomas EGFR-AF KYRGYZ >60 Normal >=60 [facility] Comment on above: Performed By: #### P T, PTT #### [facility] [address] [place] [address] Dr. Tori Thomas EGFR-NON AF KYRGYZ >60 Normal >=60 [facility] Comment on above: Performed By: #### P T, PTT #### [facility] [address] [address] [address] Tori Thomas Glucose [Mass/Vol] 126 mg/dL Critically high 74-106 [facility] Comment on above: Performed By: #### P T, PTT #### [facility] [address] [address] [address] Tori Thomas Potassium [Moles/Vol] 3.9 mmol/L Normal 3.5-5.1 [facility] Comment on above: Performed By: #### P T, PTT #### [facility] [address] [address] [address] Tori Thomas Sodium [Moles/Vol] 143 mmol/L Normal 136-145 [facility] Comment on above: Performed By: #### P T, PTT #### [facility] [address] [address] [address] Tori Thomas Urea nitrogen [Mass/Vol] 7.0 mg/dL Normal 7.0-18.0 [facility] Comment on above: Performed By: #### P T, PTT #### [facility] [address] [address] [address] Tori Thomas Urea nitrogen/Creatinine [Mass ratio] 8.9 mg/mg Normal [facility] Comment on above: Performed By: #### P T, PTT #### [facility] [address] [address] [address] Tori Thomas Anion gap [Moles/Vol] 14.4 mmol/L Normal [facility] Comment on above: Performed By: #### B MP #### [facility] [address] [address] [address] Tori Thomas Calcium [Mass/Vol] 7.8 mg/dL Critically low 8.5-10.1 [facility] Comment on above: Performed By: #### B MP #### [facility] [address] [address] [address] Tori Thomas Chloride [Moles/Vol] 107 mmol/L Normal 98-107 [facility] Comment on above: Performed By: #### B MP #### [facility] [address] [address] [address] Tori Thomas CO2 [Moles/Vol] 23.6 mmol/L Normal 21.0-32.0 [facility] Comment on above: Performed By: #### B MP #### [facility] [address] [address] [address] Tori Thomas Creatinine [Mass/Vol] 0.78 mg/dL Normal 0.55-1.02 [facility] Comment on above: Performed By: #### B MP #### [facility] [address] [address] [address] Tori Thomas EGFR-AF KYRGYZ >60 Normal >=60 [facility] Comment on above: Performed By: #### B MP #### [facility] [address] [place] [address] Dr. Tori Thomas EGFR-NON AF KYRGYZ >60 Normal >=60 [facility] Comment on above: Performed By: #### B MP #### [facility] [address] [place] [address] Dr. Tori Thomas Glucose [Mass/Vol] 147 mg/dL Critically high 74-106 [facility] Comment on above: Performed By: #### B MP #### [facility] [address] [place] [address] Dr. Tori Thomas Potassium [Moles/Vol] 3.0 mmol/L Critically low 3.5-5.1 [facility] Comment on above: Performed By: #### B MP #### [facility] [address] [address] [address] Tori Thomas Sodium [Moles/Vol] 142 mmol/L Normal 136-145 [facility] Comment on above: Performed By: #### B MP #### [facility] [address] [address] [address] Tori Thomas Urea nitrogen [Mass/Vol] 7.0 mg/dL Normal 7.0-18.0 [facility] Comment on above: Performed By: #### B MP #### [facility] [address] [address] [address] Tori Thomas Urea nitrogen/Creatinine [Mass ratio] 9.0 mg/mg Normal [facility] Comment on above: Performed By: #### B MP #### [facility] [address] [place] [address] Dr. Tori Thomas Anion gap [Moles/Vol] 14.3 mmol/L Normal [facility] Comment on above: Performed By: #### P T, PTT #### [facility] [address] [place] [address] Dr. Tori Thomas Calcium [Mass/Vol] 7.5 mg/dL Critically low 8.5-10.1 [facility] Comment on above: Performed By: #### P T, PTT #### [facility] [address] [place] [address] Dr. Tori Thomas Chloride [Moles/Vol] 108 mmol/L Critically high 98-107 [facility] Comment on above: Performed By: #### P T, PTT #### [facility] [address] [place] [address] Dr. Tori Thomas CO2 [Moles/Vol] 22.8 mmol/L Normal 21.0-32.0 [facility] Comment on above: Performed By: #### P T, PTT #### [facility] [address] [place] [address] Dr. Tori Thomas Creatinine [Mass/Vol] 0.73 mg/dL Normal 0.55-1.02 [facility] Comment on above: Performed By: #### P T, PTT #### [facility] [address] [place] [address] Dr. Tori Thomas EGFR-AF KYRGYZ >60 Normal >=60 [facility] Comment on above: Performed By: #### P T, PTT #### [facility] [address] [place] [address] Dr. Tori Thomas EGFR-NON AF KYRGYZ >60 Normal >=60 [facility] Comment on above: Performed By: #### P T, PTT #### [facility] [address] [place] [address] Dr. Tori Thomas Glucose [Mass/Vol] 135 mg/dL Critically high 74-106 T [facility] Comment on above: Performed By: #### P T, PTT #### [facility] [address] [place] [address] Dr. Tori Thomas Potassium [Moles/Vol] 3.1 mmol/L Critically low 3.5-5.1 [facility] Comment on above: Performed By: #### P T, PTT #### [facility] [address] [place] [address] Dr. Tori Thomas Sodium [Moles/Vol] 142 mmol/L Normal 136-145 [facility] Comment on above: Performed By: #### P T, PTT #### [facility] [address] [place] [address] Dr. Tori Thomas Urea nitrogen [Mass/Vol] 7.0 mg/dL Normal 7.0-18.0 [facility] Comment on above: Performed By: #### P T, PTT #### [facility] [address] [place] [address] Dr. Tori Thomas Urea nitrogen/Creatinine [Mass ratio] 9.6 mg/mg Normal [facility] Comment on above: Performed By: #### P T, PTT #### [facility] [address] [place] [address] Dr. Tori Thomas TSHon 11-15-2022 TSH 1.722 uIU/mL Normal 0.358-3.74 0 [facility] Comment on above: Performed By: #### P T, PTT #### [facility] [address] [place] [address] Dr. Tori Thomas URINE MICROSCOPIC ONLYon BACTERIA LARGE Abnormal NONE SEEN [facility] Comment on above: Performed By: #### D DERIC RODRÍGUEZ UMICRO #### [facility] [address] [place] [address] Dr. Tori Thomas Bacteria identified Cx Nom (U) INDICATED Normal [facility] Comment on above: Performed By: #### D DERIC RODRÍGUEZ UMICRO #### [facility] [address] [place] [address] Dr. Tori Thomas CA OX CRYSTALS RARE Normal [facility] Comment on above: Performed By: #### D DERIC RODRÍGUEZ, UMICRO #### [facility] [address] [place] [address] Dr. Tori Thomas CAST NONE SEEN Normal NONE SEEN [facility] Comment on above: Performed By: #### D DERIC RODRÍGUEZ, UMICRO #### [facility] [address] [place] [address] Dr. Tori Thomas Crystals LM Nom (Urine sed) SEEN Abnormal NONE SEEN [facility] Comment on above: Performed By: #### D DERIC RODRÍGUEZ UMICRO #### [facility] [address] [place] [address] Dr. Tori Thomas Epithelial cells LM Ql (Urine sed) FEW Abnormal NONE SEEN /RARE [facility] Comment on above: Performed By: #### D DERIC RODRÍGUEZ UMICRO #### [facility] [address] [place] [address] Dr. Tori Thomas MUCOUS NONE SEEN Normal NONE SEEN [facility] Comment on above: Performed By: #### D DERIC RODRÍGUEZ UMICRO #### [facility] [address] [place] [address] Dr. Tori Thomas RBC 0-2 Normal 0-2 [facility] Comment on above: Performed By: #### D DERIC RODRÍGUEZ UMICRO #### [facility] [address] [place] [address] Dr. Tori Thomas WBC 75-100 Abnormal NONE SEEN [facility] Comment on above: Performed By: #### D DERIC RODRÍGUEZ UMICRO #### [facility] [address] [place] [address] Dr. Tori Thomas Urine Cultureon 11-15-2022 Bacteria identified Cx Nom (U) ORGANISM: Escherichia coli (ESBL) (O:ESCCOLESBL) [place] Count >100,000 Aerobic DIVYA Charge (NMIC56) SUSCEPTIBILITY [...] RESISTANT TO ALL B-LACTAM DRUGS. PERFORMED BY: [place] [address] PATHOLOGIST CRACK OFF PERSON RADHA GARCIA M.D. Normal [facility] Comment on above: Performed By: #### C BC, MG, CMP, ESR, LIPASE, TSH3 #### [facility] [address] [place] [address] [place] CBC AUTO DIFFon 11-14-2022 BASO # 0.0 103/ul Normal 0.0-0.1 [facility] Comment on above: Performed By: #### P T, PTT #### [facility] [address] [address] [address] Tori Thomas Basophils/100 WBC (Bld) 0.2 % Normal 0.2-2.0 [facility] Comment on above: Performed By: #### P T, PTT #### [facility] [address] [place] [address] Dr. Tori Thomas EO # 0.1 103/ul Normal 0.0-0.7 [facility] Comment on above: Performed By: #### P T, PTT #### [facility] [address] [place] [address] Dr. Tori Thomas Eosinophils/100 WBC (Bld) 0.8 % Critically low 0.9-7.0 [facility] Comment on above: Performed By: #### P T, PTT #### [facility] [address] [place] [address] Dr. Tori Thomas Erythrocyte distribution width (RBC) [Ratio] 13.9 % Normal 11.0-15.0 [facility] Comment on above: Performed By: #### P T, PTT #### [facility] [address] [place] [address] Dr. Tori Thomas Hematocrit (Bld) [Volume fraction] 43.0 % Normal 36.0-48.0 [facility] Comment on above: Performed By: #### P T, PTT #### [facility] [address] [place] [address] Dr. Tori Thomas Hemoglobin (Bld) [Mass/Vol] 14.3 g/dL Normal 12.0-16.0 [facility] Comment on above: Performed By: #### P T, PTT #### [facility] [address] [place] [address] Dr. Tori Thomas IG # 0.04 10e3/ul Critically high 0.00-0.03 [facility] Comment on above: Performed By: #### P T, PTT #### [facility] [address] [place] [address] Dr. Tori Thomas IG % 0.3 % Normal 0.0-0.5 [facility] Comment on above: Performed By: #### P T, PTT #### [facility] [address] [place] [address] Dr. Tori Thomas LYMPH # 3.9 103/ul Critically high 1.2-3.8 [facility] Comment on above: Performed By: #### P T, PTT #### [facility] [address] [place] [address] Dr. Tori Thomas Lymphocytes/100 WBC (Bld) 28.8 % Normal 20.5-60.0 [facility] Comment on above: Performed By: #### P T, PTT #### [facility] [address] [place] [address] Dr. Tori Thomas MANUAL DIFF REQ NO Normal [facility] Comment on above: Performed By: #### P T, PTT #### [facility] [address] [place] [address] Dr. Tori Thomas MCH (RBC) [Entitic mass] 28.9 pg Normal 26.7-34.0 [facility] Comment on above: Performed By: #### P T, PTT #### [facility] [address] [place] [address] Dr. Tori Thomas MCHC (RBC) [Mass/Vol] 33.3 g/dL Normal 29.9-35.2 [facility] Comment on above: Performed By: #### P T, PTT #### [facility] [address] [place] [address] Dr. Tori Thomas MCV (RBC) [Entitic vol] 87.0 fL Normal 81.0-99.0 [facility] Comment on above: Performed By: #### P T, PTT #### [facility] [address] [place] [address] Dr. Tori Thomas MONO # 0.7 103/ul Normal 0.3-0.8 [facility] Comment on above: Performed By: #### P T, PTT #### [facility] [address] [place] [address] Dr. Tori Thomas Monocytes/100 WBC (Bld) 4.9 % Normal 1.7-12.0 [facility] Comment on above: Performed By: #### P T, PTT #### [facility] [address] [place] [address] Dr. Tori Thomas NEUT # 8.8 103/ul Critically high 1.4-6.5 [facility] Comment on above: Performed By: #### P T, PTT #### [facility] [address] [place] [address] Dr. Tori Thomas Neutrophils/100 WBC (Bld) 65.0 % Normal 43.0-75.0 [facility] Comment on above: Performed By: #### P T, PTT #### [facility] [address] [place] [address] Dr. Tori Thomas Platelet mean volume (Bld) [Entitic vol] 9.6 fL Normal 9.5-13.5 [facility] Comment on above: Performed By: #### P T, PTT #### [facility] [address] [place] [address] Dr. Tori Thomas PLT 406 103/ul Normal 150-450 [facility] Comment on above: Performed By: #### P T, PTT #### [facility] [address] [place] [address] Dr. Tori Thomas RBC 4.94 106/ul Normal 4.20-5.40 [facility] Comment on above: Performed By: #### P T, PTT #### [facility] [address] [place] [address] Dr. Tori Thomas WBC 13.6 103/ul Critically high 4.0-11.0 [facility] Comment on above: Performed By: #### P T, PTT #### [facility] [address] [place] [address] Dr. Tori Thomas MAGNESIUMon 11-14-2022 Magnesium [Mass/Vol] 1.5 mg/dL Critically low 1.8-2.4 [facility] Comment on above: Performed By: #### U AMIC #### [facility] [address] [place] [address] Dr. Tori Thomas PREG HCG QUALon 11-14-2022 , QUAL Negative Normal NEGATIVE [facility] Comment on above: Performed By: #### P T, PTT #### [facility] [address] [place] [address] Dr. Tori Thomas PROF 14(COMP METB)on 023 Albumin [Mass/Vol] 4.0 g/dL Normal 3.4-5.0 [facility] Comment on above: Performed By: #### P T, PTT #### [facility] [address] [place] [address] Dr. Tori Thomas Albumin/Globulin [Mass ratio] 1.0 {ratio} Normal [facility] Comment on above: Performed By: #### P T, PTT #### [facility] [address] [place] [address] Dr. Tori Thomas ALP [Catalytic activity/Vol] 62 U/L Normal 46-116 [facility] Comment on above: Performed By: #### P T, PTT #### [facility] [address] [place] [address] Dr. Tori Thomas ALT [Catalytic activity/Vol] 40 U/L Normal 14-59 [facility] Comment on above: Performed By: #### P T, PTT #### [facility] [address] [place] [address] Dr. Tori Thomas Anion gap [Moles/Vol] 17.3 mmol/L Normal [facility] Comment on above: Performed By: #### P T, PTT #### [facility] [address] [place] [address] Dr. Tori Thomas AST [Catalytic activity/Vol] 32 U/L Normal 15-37 [facility] Comment on above: Performed By: #### P T, PTT #### [facility] [address] [place] [address] Dr. Tori Thomas Bilirubin [Mass/Vol] 0.5 mg/dL Normal 0.2-1.0 [facility] Comment on above: Performed By: #### P T, PTT #### [facility] [address] [place] [address] Dr. Tori Thomas Calcium [Mass/Vol] 8.5 mg/dL Normal 8.5-10.1 [facility] Comment on above: Performed By: #### P T, PTT #### [facility] [address] [place] [address] Dr. Tori Thomas Chloride [Moles/Vol] 101 mmol/L Normal 98-107 [facility] Comment on above: Performed By: #### P T, PTT #### [facility] [address] [place] [address] Dr. Tori Thomas CO2 [Moles/Vol] 23.6 mmol/L Normal 21.0-32.0 [facility] Comment on above: Performed By: #### P T, PTT #### [facility] [address] [place] [address] Dr. Tori Thomas Creatinine [Mass/Vol] 1.02 mg/dL Normal 0.55-1.02 [facility] Comment on above: Performed By: #### P T, PTT #### [facility] [address] [place] [address] Dr. Tori Thomas EGFR-AF KYRGYZ >60 Normal >=60 [facility] Comment on above: Performed By: #### P T, PTT #### [facility] [address] [place] [address] Dr. Tori Thomas EGFR-NON AF KYRGYZ >60 Normal >=60 [facility] Comment on above: Performed By: #### P T, PTT #### [facility] [address] [place] [address] Dr. Tori Thomas Globulin (S) [Mass/Vol] 3.9 g/dL Normal [facility] Comment on above: Performed By: #### P T, PTT #### [facility] [address] [place] [address] Dr. Tori Thomas Glucose [Mass/Vol] 172 mg/dL Critically high 74-106 [facility] Comment on above: Performed By: #### P T, PTT #### [facility] [address] [place] [address] Dr. Tori Thomas Potassium [Moles/Vol] 2.2 mmol/L Critically low 3.5-5.1 [facility] Comment on above: Performed By: #### P T, PTT #### [facility] [address] [place] [address] Dr. Tori Thomas Protein [Mass/Vol] 7.9 g/dL Normal 6.4-8.2 [facility] Comment on above: Performed By: #### P T, PTT #### [facility] [address] [address] [address] Tori Thomas Sodium [Moles/Vol] 110 mmol/L Critically low 136-[address] [facility] Comment on above: Performed By: #### P T, PTT #### [facility] [address] [address] [address] Tori Thomas Urea nitrogen [Mass/Vol] 7.0 mg/dL Normal 7.0-18.0 [facility] Comment on above: Performed By: #### P T, PTT #### [facility] [address] [address] [address] Tori Thomas Urea nitrogen/Creatinine [Mass ratio] 6.9 mg/mg Normal [facility] Comment on above: Performed By: #### P T, PTT #### [facility] [address] [address] [address] Tori Thomas Echocardiogramon 10-01-[address], [address] [place] [address] TRANSTHORACIC ECHOCARDIOGRAM REPORT Patient Name: RAQUEL De León Physician: [id number] Néstor Charlton MD Study Date: 10/01/2022 Referring Physician: PERLITA LAWRENCE MRN/PID: [id number] PCP: Chandrika Lee Accession/Order#: [id number] Department Location: [employer] Date of : 1985 Fellow: Gender: F Nurse: Admit Date: Top Stitcher: aRquel Briggs RD, T Height: 160.02 cm CC Report to: Weight: 58.51 kg Study Type: Echocardiogram BSA: 1.61 m2 Blood Pressure: 108 /56 mmHg Diagnosis/ICD: R00.2-Palpitations; M40-Ulslowe; I47.1-Supraventricular tachycardia Indication: Hypokalemia, Chron's Disease Procedure/CPT: Echo Complete w Full Doppler-[id number] Study Detail: The following Echo studies were [...] 0.8 m/s (0.6-0.9m/s) PV Max P.4 mmHg [id number] Néstor Charlton MD Electronically signed on 10/04/2022 at 3:21:42 PM Final Normal [facility] Office Visit (Cardiology)on 09-03-2022 Follow-up visit [...] Recorded: 03Sep2022 01:10PM Heart Rate82, R Radial Dyletlhg317, LUE, Sitting Djxwkmkmy44, LUE, Sitting Height5 ft 3 in Powqyd169 lb BMI Thzdvnqbdm19.85 kg (more content not included)... Normal [facility] Tobacco Screening.on 023 Tobacco use status [facility]PHS b) No [facility]-Sandu mary 250 DO Work Phone: HCG ( test) IA.rapi d Ql (U)Ordered By: Devyn Falcon on 08-17-2022 HCG ( test) Ql (U) Negative [facility] HCG,Urineon 08-17-2022 Beta HCG ( test) Ql (U) Negative Normal [facility] Comment on above: Result Comment: PERF ORMED BY: [place] [address] PATHOLOGIST CRACK OFF PERSON RADHA GARCIA M.D. Performed By: #### L IPASE, PT, CBC, PTT, CMP #### [address] [place] 08-17-2022 L ------ Specimen: [id number] Received: 08/17/22 Status: ARSALAN Brito Num: [id number] Spec Type: Surgical Subm Dr: Carter Lewis DO Tissues: A Hemorrhoids (HEMORRHOIDS) Procedures: TANVIR, Gross/Micro L3 Age/ Patient Sex Location Account Attending Physician Raquel Correa 37/F [place] [id number] Carter LewisDO SPEC NUM: [id number] RECD: 08/17/22 STATUS: ARSALAN BRITO NUM: [id number] BILLY: 08/17/22 [facility] DR: Carter Lewis DO ENTERED: 08/17/22 [facility] [address]: TONIA TYPE: Surgical DEPT: S ORDERED: [...] is rubbery, baca-pink with focal thrombosed vessels. Industrial Staff Nurse sections are submitted in one cassette labeled A1. Microscopic Description One glass slide with H E stained material has been examined. The microscopic findings support the above pathologic diagnosis. Specimen: [id number] Received: 08/17/22 Status: ARSALAN Brito Num: [id number] Spec Type: Surgical Subm Dr: Carter Lewis DO Tissues: A Hemorrhoids (HEMORRHOIDS) Procedures: Lopez RAMEY/Familia L3 Patient: Raquel Correa [id number] (Continued) Specimen: [id number] Received: 08/17/22 (Continued) Signed (signature on file) Diana Santana MD 08/18/222003 Specimen: [id number] Received: 08/17/22 Status: ARSALAN Brito Num: [id number] Spec Type: Surgical Subm Dr: Carter Lewis DO Tissues: A Hemorrhoids (HEMORRHOIDS) Procedures: Lopez RAMEY/Familia Ross Patient: Raquel Correa [id number] (Continued) Specimen: [id number] Received: 08/17/22 (Continued) CPT Codes 05723 Specimen: [id number] Received: 08/17/22 Status: ARSALAN Brito Num: [id number] Spec Type: Surgical Subm Dr: Carter Lewis DO Tissues: A Hemorrhoids (HEMORRHOIDS) Procedures: Reji RAMEY Patient: Raquel Correa [id number] (Continued) Signed (signature on file) Diana Santana MD 08/18/222003 [facility] CULTURE URINEon 08-13-2022 CULTURE URINE Isolate 1 [...] Trimethoprim/Sulfamethoxaz ole <=20 S F Normal [facility] Comment on above: Performed By: #### U AMIC #### [facility] [address] [place] [address] Dr. Tori Thomas UA RANDOM W/MICROSCOPICon BACTERIA LARGE Abnormal NONE SEEN [facility] Comment on above: Performed By: #### U AMIC #### [facility] [address] [place] [address] Dr. Tori Thomas Bilirubin Ql (U) Negative Normal NEGATIVE [facility] Comment on above: Performed By: #### U AMIC #### [facility] [address] [place] [address] Dr. Tori Thomas CA OX CRYSTALS FEW Normal [facility] Comment on above: Performed By: #### U AMIC #### [facility] [address] [place] [address] Dr. Tori Thomas CAST NONE SEEN Normal NONE SEEN [facility] Comment on above: Performed By: #### U AMIC #### [facility] [address] [address] [address] Tori Thomas Clarity (U) CLEAR Normal CLEAR [facility] Comment on above: Performed By: #### U AMIC #### [facility] [address] [place] [address] Dr. Tori Thomas Color (U) DK. ORANGE Abnormal YELLOW [facility] Comment on above: Performed By: #### U AMIC #### [facility] [address] [place] [address] Dr. Tori Thomas Crystals LM Nom (Urine sed) SEEN Abnormal NONE SEEN [facility] Comment on above: Performed By: #### U AMIC #### [facility] [address] [place] [address] Dr. Tori Thomas Epithelial cells LM Ql (Urine sed) MODERATE Abnormal NONE SEEN /RARE [facility] Comment on above: Performed By: #### U AMIC #### [facility] [address] [place] [address] Dr. Tori Thomas Glucose Ql (U) Negative Normal NEGATIVE [facility] Comment on above: Performed By: #### U AMIC #### [facility] [address] [address] [address] Tori Thomas Hemoglobin Ql (U) TRACE-INTACT Abnormal NEGATIVE [facility] Comment on above: Performed By: #### U AMIC #### [facility] [address] [place] [address] Dr. Tori Thomas Ketones Ql (U) TRACE Abnormal NEGATIVE [facility] Comment on above: Performed By: #### U AMIC #### [facility] [address] [address] [address] Tori Thomas LEUKOCYTES MODERATE Abnormal NEGATIVE [facility] Comment on above: Performed By: #### U AMIC #### [facility] [address] [address] [address] Tori Thomas MUCOUS NONE SEEN Normal NONE SEEN [facility] Comment on above: Performed By: #### U AMIC #### [facility] [address] [address] [address] Tori Thomas Nitrite Ql (U) Positive Abnormal NEGATIVE [facility] Comment on above: Performed By: #### U AMIC #### [facility] [address] [address] [address] Tori Thomas pH (U) 5.5 [pH] Normal 5-9 [facility] Comment on above: Performed By: #### U AMIC #### [facility] [address] [address] [address] Tori Thomas RBC 5-10 Abnormal 0-2 [facility] Comment on above: Performed By: #### U AMIC #### [facility] [address] [address] [address] Tori Thomas SPEC GRAVITY 1.025 Normal 1.005-<=1. 025 [facility] Comment on above: Performed By: #### U AMIC #### [facility] [address] [address] [address] Tori Thomas UA PROTEIN 30 mg/dl Abnormal NEGATIVE/ TRACE [facility] Comment on above: Performed By: #### U AMIC #### [facility] [address] [address] [address] Tori Thomas Urobilinogen Qn (U) 1.0 {Diana'U}/dL Normal 0.2 - 1. 0 [facility] Comment on above: Performed By: #### U AMIC #### [facility] [address] [address] [address] Tori Thomas WBC 50-75 Abnormal NONE SEEN [facility] Comment on above: Performed By: #### U AMIC #### [facility] [address] [address] [address] Tori Thomas HCG ( test) Navin bhandari Ql (U)Ordered By: Nam Christensen on 08-02-2022 HCG ( test) Ql (U) Negative [facility] HCG,Urineon 08-02-2022 Beta HCG ( test) Ql (U) Negative Normal [facility] Comment on above: Result Comment: PERF ORMED BY: [facility] [address] [place] [address] PATHOLOGIST CRACK OFF PERSON RADHA GARCIA M.D. Performed By: #### C BC, MG, CMP, ESR, LIPASE, TSH3 #### [facility] [address] [place] 08-02-2022 L ------ Specimen: [id number] Received: 08/02/22 Status: ARSALAN Brito Num: [id number] Spec Type: Surgical Subm Dr: Carter Lewis DO Tissues: A Hemorrhoids (HEMORRHOIDS) Procedures: TANVIR, Gross/Familia L3 Age/ Patient Sex Location Account Attending Physician Raquel Correa 37/F [place] [id number] Carter Lewis DO SPEC NUM: [id number] RECD: 08/02/22 STATUS: ARSALAN BRITO NUM: [id number] BILLY: 08/02/220 [facility] DR: Carter Lewis DO ENTERED: 08/02/[address]: TONIA TYPE: Surgical DEPT: S ENTERED BY: [id number] RECV BY: [id number] ORDERED: HE, Gross/Micro L3 ORDERED: HE, Gross/Micro [...] mucosa. The cut surface is rubbery, baca-red.. Industrial Staff Nurse sections are submitted in one cassette labeled A1. Microscopic Description One glass slide with H E stained material has been examined. The microscopic findings support the above pathologic diagnosis. CPT Codes 40644 Specimen: [id number] Received: 08/02/22 Status: ARSALAN Brito Num: [id number] Spec Type: Surgical Subm Dr: Carter Lewis, Tissues: A Hemorrhoids (HEMORRHOIDS) Procedures: TANVIR, Gross/Familia L3 Patient: Raquel Correa [id number] (Continued) Signed (signature on file) Alla Carlisle MD 08/03/22 1221 [facility] Office Visit (Cardiology)on 07-26-2022 Follow-up visit Diagnoses/Problems [...] August after surgery Chief Complaint POC Hemmroidectomy Katelynnradha. 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 There (more content not included)... Normal [facility] Office Visit Presurgicalon 0 07-26-2022 Office Visit [...] call if any further questions arise, Sincerely, Perltia Lawrence MD [facility] Surgical History Problems History of section History [...] appreciated. Th (more content not included)... Normal [employer] Tobacco Screening.on 023 Adult depression screening assessment No [facility] [employer] 250 DO Work Phone: Fall risk assessment a) No falls within the last year [facility] [employer] 250 DO Work Phone: Tobacco use status CPHS b) No [facility] [employer] 250 DO Work Phone: Basic Metabolic Panelon 06-28 Anion gap [Moles/Vol] 12.9 mmol/L Normal 6.0-15.0 [facility] Comment on above: Performed By: #### C BC, MG, CMP, ESR, LIPASE, TSH3 #### [facility] [address] Calcium [Mass/Vol] 9.3 mg/dL Normal 8.2-10.2 [facility] Comment on above: Result Comment: PERF ORMED BY: [facility] [address] [place] [address] PATHOLOGIST CRACK OFF PERSON RADHA GARCIA M.D. Performed By: #### C BC, MG, CMP, ESR, LIPASE, TSH3 #### [facility] [address] [place] [address] [place] Chloride [Moles/Vol] 104 mmol/L Normal 95-114 [place] Comment on above: Performed By: #### C BC, MG, CMP, ESR, LIPASE, TSH3 #### [address] CO2 [Moles/Vol] 23.4 mmol/L Normal 22.0-30.0 [facility] Comment on above: Performed By: #### C BC, MG, CMP, ESR, LIPASE, TSH3 #### [address] Creatinine [Mass/Vol] 0.98 mg/dL Normal 0.44-1.03 [facility] Comment on above: Performed By: #### C BC, MG, CMP, ESR, LIPASE, TSH3 #### [address] Estimated GFR ( Letty > 60 [facility] Comment on above: Result Comment: GFR estimated reference range: According to KDOQI guidelines, <60 ml/min/1.73m2 is sufficient to diagnose a patient with chronic kidney disease. Performed By: #### C BC, MG, CMP, ESR, LIPASE, TSH3 #### [address] Estimated GFR (Non- Am > 60 [facility] Comment on above: Performed By: #### C BC, MG, CMP, ESR, LIPASE, TSH3 #### [address] Glucose [Mass/Vol] 81 mg/dL Normal 70-100 [facility] Comment on above: Result Comment: [place] Glucose Reference Range is dependent on time and content of last meal. Glucose of more than 200 mg/dL in a nonstressed, ambulatory subject supports the diagnosis of Diabetes Mellitus. ADA recommended reference range Performed By: #### C BC, MG, CMP, ESR, LIPASE, TSH3 #### [address] Potassium [Moles/Vol] 4.3 mmol/L Normal 3.5-5.1 [facility] Comment on above: Performed By: #### C BC, MG, CMP, ESR, LIPASE, TSH3 #### [address] [place] [address] [place] Sodium [Moles/Vol] 136 mmol/L Normal 136-146 [facility] Comment on above: Performed By: #### C BC, MG, CMP, ESR, LIPASE, TSH3 #### [facility] [address] Urea nitrogen [Mass/Vol] 6 mg/dL Low 03-19 [facility] Comment on above: Performed By: #### C BC, MG, CMP, ESR, LIPASE, TSH3 #### [facility] [address] Basophils Auto (Bld) [#/Vol] Ordered By: Carter Lewis on 07-19-2022 Basophils (Bld) [#/Vol] 0.0 10*3/uL 0.0-0.2 [facility] Basophils/100 WBC Auto (Bld) Ordered By: Carter Lewis on 07-19-2022 Basophils/100 WBC (Bld) 0.6 % . [facility] Complete Blood Count Auto Di ffon 07-19-2022 Basophils (Bld) [#/Vol] 0.0 10*3/uL Normal 0.0-0.2 [facility] Comment on above: Result Comment: PERF ORMED BY: [place] [address] PATHOLOGIST CRACK OFF PERSON RADHA GARCIA M.D. Performed By: #### C BC, MG, CMP, ESR, LIPASE, TSH3 #### [address] Basophils/100 WBC (Bld) 0.6 % Normal . [facility] Comment on above: Performed By: #### C BC, MG, CMP, ESR, LIPASE, TSH3 #### [facility] [address] Eosinophils (Bld) [#/Vol] 0.1 10*3/uL Normal 0.0-0.45 [facility] Comment on above: Performed By: #### C BC, MG, CMP, ESR, LIPASE, TSH3 #### [address] Eosinophils/100 WBC (Bld) 1.0 % Normal . [facility] Comment on above: Performed By: #### C BC, MG, CMP, ESR, LIPASE, TSH3 #### [address] Erythrocyte distribution width (RBC) [Ratio] 19.7 % High 11.9-15.3 [facility] Comment on above: Performed By: #### C BC, MG, CMP, ESR, LIPASE, TSH3 #### [address] Hematocrit (Bld) [Volume fraction] 38.3 % Normal 34.0-46.4 [facility] Comment on above: Performed By: #### C BC, MG, CMP, ESR, LIPASE, TSH3 #### [address] Hemoglobin (Bld) [Mass/Vol] 12.4 g/dL Normal 11.8-15.4 [facility] Comment on above: Performed By: #### C BC, MG, CMP, ESR, LIPASE, TSH3 #### [address] Lymphocytes (Bld) [#/Vol] 1.9 10*3/uL Normal 1.00-4.8 [facility] Comment on above: Performed By: #### C BC, MG, CMP, ESR, LIPASE, TSH3 #### [address] Lymphocytes/100 WBC (Bld) 27.1 % Normal . [facility] Comment on above: Performed By: #### C BC, MG, CMP, ESR, LIPASE, TSH3 #### [address] MCH (RBC) [Entitic mass] 26.2 pg Normal 24.7-34.3 [facility] Comment on above: Performed By: #### C BC, MG, CMP, ESR, LIPASE, TSH3 #### [place] [id number] [place] MCV (RBC) [Entitic vol] 80.9 fL Normal 80-100 [facility] Comment on above: Performed By: #### C BC, MG, CMP, ESR, LIPASE, TSH3 #### [address] Mean Corpuscular HGB Conc 32.4 g/dL Normal 32.0-35.0 [facility] Comment on above: Performed By: #### C BC, MG, CMP, ESR, LIPASE, TSH3 #### [address] Monocytes (Bld) [#/Vol] 0.6 10*3/uL Normal 0.0-0.8 [facility] Comment on above: Performed By: #### C BC, MG, CMP, ESR, LIPASE, TSH3 #### [address] Monocytes/100 WBC (Bld) 7.9 % Normal . [facility] Comment on above: Performed By: #### C BC, MG, CMP, ESR, LIPASE, TSH3 #### [address] Neutrophils (Bld) [#/Vol] 4.6 10*3/uL Normal 1.8-7.7 [facility] Comment on above: Performed By: #### C BC, MG, CMP, ESR, LIPASE, TSH3 #### [address] Neutrophils/100 WBC (Bld) 63.4 % Normal . [facility] Comment on above: Performed By: #### C BC, MG, CMP, ESR, LIPASE, TSH3 #### [address] NRBC% 0.1 /100{WBC} Normal 0-0.5 [facility] Comment on above: Performed By: #### C BC, MG, CMP, ESR, LIPASE, TSH3 #### [address] Platelet mean volume (Bld) [Entitic vol] 8.1 fL Normal 6.3-10.7 [facility] Comment on above: Performed By: #### C BC, MG, CMP, ESR, LIPASE, TSH3 #### [facility] [address] Platelets (Bld) [#/Vol] 405 10*3/uL Normal 150-450 [facility] Comment on above: Performed By: #### C BC, MG, CMP, ESR, LIPASE, TSH3 #### [facility] [address] RBC (Bld) [#/Vol] 4.73 10*6/uL Normal 3.60-5.00 [facility] Comment on above: Performed By: #### C BC, MG, CMP, ESR, LIPASE, TSH3 #### [facility] [address] WBC (Bld) [#/Vol] 7.2 10*3/uL Normal 3.8-11.6 [facility] Comment on above: Performed By: #### C BC, MG, CMP, ESR, LIPASE, TSH3 #### [facility] [address] Creatinine and Glomerular fi ltration rate.predicted panel (S/P/Bld)Ordered By: Carter Lewis on 07-19-2022 Creatinine [Mass/Vol] 0.98 mg/dL 0.44-1.03 [facility] Eosinophils Auto (Bld) [#/Vo l]Ordered By: Carter Lewis on 07-19-2022 Eosinophils (Bld) [#/Vol] 0.1 10*3/uL 0.0-0.45 [facility] Eosinophils/100 WBC Auto (Bl d)Ordered By: Carter Lewis on 07-19-2022 Eosinophils/100 WBC (Bld) 1.0 % . [facility] Erythrocyte distribution wid th Auto (RBC) [Ratio]Ordered By: Carter Lewis on 07-19-2022 Erythrocyte distribution width (RBC) [Ratio] 19.7 % 11.9-15.3 [facility] Estimated glomerular filtrat ion rate (GFR) non- AmericanOrdered By: Carter Lewis on 07-19-2022 GFR/1.73 sq M.predicted among non-blacks MDRD (S/P/Bld) [Vol rate/Area] > 60 mL/Min [facility] Hematocrit Auto (Bld) [Volum e fraction]Ordered By: Carter Lewis on 07-19-2022 Hematocrit (Bld) [Volume fraction] 38.3 % 34.0-46.4 [facility] Hemoglobin [Mass/volume] in BloodOrdered By: Carter Lewis on 07-19-2022 Hemoglobin (Bld) [Mass/Vol] 12.4 g/dL 11.8-15.4 [facility] Leukocytes [#/volume] correc rosales for nucleated erythrocytes in Blood by Automated counOrdered By: Carter Lewis on 07-19-2022 WBC corrected for nucl RBC Auto (Bld) [#/Vol] 7.2 10*3/uL 3.8-11.6 [facility] Lymphocytes Auto (Bld) [#/Vo l]Ordered By: Carter Lewis on 07-19-2022 Lymphocytes (Bld) [#/Vol] 1.9 10*3/uL 1.00-4.8 [facility] Lymphocytes/100 WBC Auto (Bl d)Ordered By: Carter Lewis on 07-19-2022 Lymphocytes/100 WBC (Bld) 27.1 % . [facility] MCH Auto (RBC) [Entitic mass ]Ordered By: Carter Lewis on 07-19-2022 MCH (RBC) [Entitic mass] 26.2 pg 24.7-34.3 [facility] MCHC Auto (RBC) [Mass/Vol]Or dered By: Carter Lewis on 07-19-2022 MCHC (RBC) [Mass/Vol] 32.4 g/dL 32.0-35.0 [facility] MCV Auto (RBC) [Entitic vol] Ordered By: Carter Lewis on 07-19-2022 MCV (RBC) [Entitic vol] 80.9 fL 80-100 [facility] Monocytes Auto (Bld) [#/Vol] Ordered By: Carter Lewis on 07-19-2022 Monocytes (Bld) [#/Vol] 0.6 10*3/uL 0.0-0.8 [facility] Monocytes/100 WBC Auto (Bld) Ordered By: Carter Lewis on 07-19-2022 Monocytes/100 WBC (Bld) 7.9 % . [facility] Neutrophils Auto (Bld) [#/Vo l]Ordered By: Carter Lewis on 07-19-2022 Neutrophils (Bld) [#/Vol] 4.6 10*3/uL 1.8-7.7 [facility] Neutrophils/100 WBC Auto (Bl d)Ordered By: Carter Lewis on 07-19-2022 Neutrophils/100 WBC (Bld) 63.4 % . [facility] No Panel InformationOrdered By: Carter Lewis on 07-19-2022 Estimated GFR () > 60 mL/Min [facility] Comment on above: GFR estimated refere nce range: According to KDOQI guidelines, <60 ml/min/1.73m2 is sufficient to diagnose a patient with chronic kidney disease. Pharmacy Creatinine Clearance (Chem N/A [facility] Nucleated erythrocytes [Pres ence] in Blood by Automated countOrdered By: Carter Lewis on 07-19-2022 Nucleated RBC Auto Ql (Bld) 0.1 /100{WBC} 0-0.5 [facility] Platelet mean volume Auto (B ld) [Entitic vol]Ordered By: Carter Lewis on 07-19-2022 Platelet mean volume (Bld) [Entitic vol] 8.1 fL 6.3-10.7 [facility] Platelets Auto (Bld) [#/Vol] Ordered By: Carter Lewis on 07-19-2022 Platelets (Bld) [#/Vol] 405 10*3/uL 150-450 [facility] RBC Auto (Bld) [#/Vol]Ordere d By: Carter Lewis on 07-19-2022 RBC (Bld) [#/Vol] 4.73 10*6/uL 3.60-5.00 [facility] Serum or plasma anion gap de terminationOrdered By: Carter Lewis on 07-19-2022 Anion gap [Moles/Vol] 12.9 mmol/L 6.0-15.0 [facility] Serum or plasma calcium mariana urement (mass/volume)Ordered By: Carter Lewis on 07-19-2022 Calcium [Mass/Vol] 9.3 mg/dL 8.2-10.2 [facility] Serum or plasma chloride jaqui surement (moles/volume)Ordered By: Carter Lewis on 07-19-2022 Chloride [Moles/Vol] 104 mmol/L 95-114 [place] Serum or plasma glucose mariana urement (mass/volume)Ordered By: Carter Lewis on 07-19-2022 Glucose [Mass/Vol] 81 mg/dL 70-100 [facility] Comment on above: ADA recommended refe rence rangeRandom Glucose Reference Range is dependent on time and content of last meal. Glucose of more than 200 mg/dL in a nonstressed, ambulatory subject supports the diagnosis of Diabetes Mellitus. Serum or plasma potassium me asurement (moles/volume)Ordered By: Carter Lewis on 07-19-2022 Potassium [Moles/Vol] 4.3 mmol/L 3.5-5.1 [facility] Serum or plasma sodium measu rement (moles/volume)Ordered By: Carter Lewis on 07-19-2022 Sodium [Moles/Vol] 136 mmol/L 136-146 [facility] Serum or plasma total carbon dioxide measurement (moles/volume)Ordered By: Carter Lewis on 07-19-2022 CO2 [Moles/Vol] 23.4 mmol/L 22.0-30.0 [facility] Serum or plasma urea nitroge n measurement (mass/volume)Ordered By: Carter Lewis on 07-19-2022 Urea nitrogen [Mass/Vol] 6 mg/dL 03-19 [facility] WBC Auto (Bld) [#/Vol]Ordere d By: Carter Lewis on 07-19-2022 WBC (Bld) [#/Vol] 7.2 10*3/uL 3.8-11.6 [facility] Arterial blood standard base excess determination by calculationOrdered By: Be Azul on 06-14-2022 Base excess standard Calc (BldA) [Moles/Vol] 0 mmol/L -2-3 [facility] Blood carbon dioxide, total measurement by calculation (moles/volume)Ordered By: Be Azul on 06-14-2022 CO2 Calc (Bld) [Moles/Vol] 26 mmol/L [facility] CT biopsyOrdered By: Cora Azul on 06-14-2022 Hematocrit (Bld) [Volume fraction] 39.0 % 38.0-51.0 [facility] Glucose Glucometer (BldC) [M ass/Vol]Ordered By: Be Azul on 06-14-2022 Glucose [Mass/Vol] 112 mg/dL 70-105 [facility] HCG ( test) IA.rapi d Ql (U)Ordered By: Be Azul on 06-14-2022 HCG ( test) Ql (U) Negative [facility] HCG,Urineon 06-14-2022 Beta HCG ( test) Ql (U) Negative Normal [facility] Comment on above: Result Comment: PERF ORMED BY: [place] [address] PATHOLOGIST CRACK OFF PERSON RADHA GARCIA M.D. Performed By: #### C BC, MG, CMP, ESR, LIPASE, TSH3 #### [address] Hemoglobin Calc (Bld) [Mass/ Vol]Ordered By: Be Azul on 06-14-2022 Hemoglobin (Bld) [Mass/Vol] 13.3 g/dL 12.0-17.0 [facility] ISTAT ABGon 06-14-2022 CO2 [Moles/Vol] 26 mmol/L Normal [facility] Comment on above: Performed By: #### C BC, MG, CMP, ESR, LIPASE, TSH3 #### [facility] [address] Glucose [Mass/Vol] 112 mg/dL High 70-105 [facility] Comment on above: Result Comment: PERF ORMED BY: [place] [address] PATHOLOGIST CRACK OFF PERSON RADHA GARCIA M.D. Performed By: #### C BC, MG, CMP, ESR, LIPASE, TSH3 #### [address] HCO3 (Bld) [Moles/Vol] 24.5 mmol/L Normal 22.0-28.0 [facility] Comment on above: Performed By: #### C BC, MG, CMP, ESR, LIPASE, TSH3 #### [address] Hematocrit (Bld) [Volume fraction] 39.0 % Normal 38.0-51.0 [facility] Comment on above: Performed By: #### C BC, MG, CMP, ESR, LIPASE, TSH3 #### [address] Hemoglobin (Bld) [Mass/Vol] 13.3 g/dL Normal 12.0-17.0 [facility] Comment on above: Performed By: #### C BC, MG, CMP, ESR, LIPASE, TSH3 #### [address] ISTAT Base Excess 0 mmol/L Normal -2 TO 3 [facility] Comment on above: Performed By: #### C BC, MG, CMP, ESR, LIPASE, TSH3 #### [address] ISTAT Ionized Calcium 1.21 mol/L Normal 1.12-1.32 [facility] Comment on above: Performed By: #### C BC, MG, CMP, ESR, LIPASE, TSH3 #### [place] [address] [place] ISTAT PCO2 36.9 mm[Hg] Normal 35-51 [facility] Comment on above: Performed By: #### C BC, MG, CMP, ESR, LIPASE, TSH3 #### [address] ISTAT Ph 7.430 Normal 7.31-7.45 [facility] Comment on above: Performed By: #### C BC, MG, CMP, ESR, LIPASE, TSH3 #### [address] ISTAT PO2 77 mm[Hg] Low 80-105 [facility] Comment on above: Performed By: #### C BC, MG, CMP, ESR, LIPASE, TSH3 #### [address] Oxygen saturation in Blood 96 % Normal 95-98 [facility] Comment on above: Result Comment: Refe rence ranges reflect baseline specimens only Performed By: #### C BC, MG, CMP, ESR, LIPASE, TSH3 #### [address] Potassium [Moles/Vol] 4.1 mmol/L Normal 3.5-4.9 [facility] Comment on above: Performed By: #### C BC, MG, CMP, ESR, LIPASE, TSH3 #### [address] Sodium [Moles/Vol] 137 mmol/L Low 138-146 [facility] Comment on above: Performed By: #### C BC, MG, CMP, ESR, LIPASE, TSH3 #### [address] 06-14-2022 L ------ Specimen: [id number] Received: 06/15/22 Status: ARSALAN Derek Num: [id number] Spec Type: Surgical Subm Dr: Be Azul MD Tissues: A Colon Biopsy (RANDOM COLON BX) Procedures: HE/2, Gross/Micro L4 Age/ Patient Sex Location Account Attending Physician Raquel Correa 37/F [id number] Be Azul MD SPEC NUM: [id number] RECD: 06/15/22 STATUS: ARSALAN BRITO NUM: [id number] BILLY: 06/14/22 [facility] [address]: Be Azul MD ENTERED: 06/15/[address] [facility] [address]: TONIA TYPE: Surgical DEPT: S ORDERED: HE/2, Gross/Micro [...] support the above pathologic diagnosis. CPT Codes 20586 Specimen: [id number] Received: 06/15/22 Status: ARSALAN Derek Num: [id number] Spec Type: Surgical Subm Dr: Be Azul MD Tissues: A Colon Biopsy (RANDOM COLON BX) Procedures: HE/Buzz, Gross/Micro L4 Patient: Raquel Correa [id number] (Continued) Signed (signature on file) Néstor Alvarado MD 06/16/22 2731 [facility] Monocyte %Ordered By: Sandy Azul on 06-14-2022 Monocyte % 36.9 mm[Hg] 35-51 [facility] Monocyte % 77 mm[Hg] 80-105 [facility] Potassium (Bld) [Moles/Vol]O rdered By: Be Azul on 06-14-2022 Potassium [Moles/Vol] 4.1 mmol/L 3.5-4.9 [facility] Sodium (Bld) [Moles/Vol]Orde red By: Be Azul on 06-14-2022 Sodium [Moles/Vol] 137 mmol/L 138-146 [facility] Whole blood bicarbonate mariana urementOrdered By: Be Azul on 06-14-2022 HCO3 (Bld) [Moles/Vol] 24.5 mmol/L 22.0-28.0 [facility] Whole blood ionized calcium measurement (moles/volume)Ordered By: Be Azul on 06-14-2022 Calcium.ionized (Bld) [Moles/Vol] 1210 mmol/L 1.12-1.32 [facility] Whole blood oxygen saturatio n measurementOrdered By: Be Azul on 06-14-2022 Oxygen saturation in Blood 96 % 95-98 [facility] [facility] Comment on above: Reference ranges ref lect baseline specimens only Whole blood pHOrdered By: Lay Azul on 06-14-2022 pH (Bld) 7.430 Units 7.31-7.45 [facility] CBC AUTO DIFFon 06-09-2022 BASO # 0.1 103/ul Normal 0.0-0.1 [facility] Comment on above: Performed By: #### C BC #### [facility] [address] [place], [place] [address] Dr. Tori Thomas Basophils/100 WBC (Bld) 0.5 % Normal 0.2-2.0 [facility] Comment on above: Performed By: #### C BC #### [facility] [address] [place], [place] [address] Dr. Tori Thomas EO # 0.1 103/ul Normal 0.0-0.7 [facility] Comment on above: Performed By: #### C BC #### [facility] [address] [place] [address] Dr. Tori Thomas Eosinophils/100 WBC (Bld) 0.9 % Normal 0.9-7.0 [facility] Comment on above: Performed By: #### C BC #### [facility] [address] [place] [address] Dr. Tori Thomas Erythrocyte distribution width (RBC) [Ratio] 16.8 % Critically high 11.0-15.0 [facility] Comment on above: Performed By: #### C BC #### [facility] [address] [place] [address] Dr. Tori Thomas Hematocrit (Bld) [Volume fraction] 34.0 % Critically low 36.0-48.0 [facility] Comment on above: Performed By: #### C BC #### [facility] [address] [place] [address] Dr. Tori Thomas Hemoglobin (Bld) [Mass/Vol] 10.5 g/dL Critically low 12.0-16.0 [facility] Comment on above: Performed By: #### C BC #### [facility] [address] [place] [address] Dr. Tori Thomas IG # 0.10 10e3/ul Critically high 0.00-0.03 [facility] Comment on above: Performed By: #### C BC #### [facility] [address] [place] [address] Dr. Tori hTomas IG % 0.9 % Critically high 0.0-0.5 [facility] Comment on above: Performed By: #### C BC #### [facility] [address] [place] [address] Dr. Tori Thomas LYMPH # 4.4 103/ul Critically high 1.2-3.8 [facility] Comment on above: Performed By: #### C BC #### [facility] [address] [place] [address] Dr. Tori Thomas Lymphocytes/100 WBC (Bld) 39.9 % Normal 20.5-60.0 [facility] Comment on above: Performed By: #### C BC #### [facility] [address] [place] [address] Dr. Tori Thomas MANUAL DIFF REQ NO Normal [facility] Comment on above: Performed By: #### C BC #### [facility] [address] [place] [address] Dr. Tori Thomas MCH (RBC) [Entitic mass] 25.6 pg Critically low 26.7-34.0 [facility] Comment on above: Performed By: #### C BC #### [facility] [address] [place] [address] Dr. Tori Thomas MCHC (RBC) [Mass/Vol] 30.9 g/dL Normal 29.9-35.2 [facility] Comment on above: Performed By: #### C BC #### [facility] [address] [place] [address] Dr. Tori Thomas MCV (RBC) [Entitic vol] 82.9 fL Normal 81.0-99.0 [facility] Comment on above: Performed By: #### C BC #### [facility] [address] [place] [address] Dr. Tori Thomas MONO # 0.6 103/ul Normal 0.3-0.8 [facility] Comment on above: Performed By: #### C BC #### [facility] [address] [place] [address] Dr. Tori Thomas Monocytes/100 WBC (Bld) 5.6 % Normal 1.7-12.0 [facility] Comment on above: Performed By: #### C BC #### [facility] [address] [place] [address] Dr. Tori Thomas NEUT # 5.7 103/ul Normal 1.4-6.5 [facility] Comment on above: Performed By: #### C BC #### [facility] [address] [place] [address] Dr. Tori Thomas Neutrophils/100 WBC (Bld) 52.2 % Normal 43.0-75.0 [facility] Comment on above: Performed By: #### C BC #### [facility] [address] [place] [address] [address] Tori Thomas Platelet mean volume (Bld) [Entitic vol] 9.0 fL Critically low 9.5-13.5 [facility] Comment on above: Performed By: #### C BC #### [facility] [address] [place] [address] [address] Tori Thomas PLT 479 103/ul Critically high 150-450 [facility] Comment on above: Performed By: #### C BC #### [facility] [address] [place] [address] [address] Tori Thomas RBC 4.10 106/ul Critically low 4.20-5.40 [facility] Comment on above: Performed By: #### C BC #### [facility] [address] [place] [address] [address] Tori Thomas WBC 11.0 103/ul Normal 4.0-11.0 [facility] Comment on above: Performed By: #### C BC #### [facility] [address] [place] [address] [address] Tori Thomas IRONon 06-09-2022 Iron [Mass/Vol] 131.0 ug/dL Normal 50.0-170.0 [facility] Comment on above: Performed By: #### U AMIC #### [facility] [address] [place] [address] Dr. Tori Thomas Basophils Auto (Bld) [#/Vol] Ordered By: Chandrika Lee on 06-05-2022 Basophils (Bld) [#/Vol] 0.1 10*3/uL 0.0-0.2 [facility] Basophils/100 WBC Auto (Bld) Ordered By: Chandrika Lee on 06-05-2022 Basophils/100 WBC (Bld) 0.6 % . [facility] Complete Blood Count Auto Di ffon 06-05-2022 Basophils (Bld) [#/Vol] 0.1 10*3/uL Normal 0.0-0.2 [facility] Comment on above: Result Comment: PERF ORMED BY: [place] [address] PATHOLOGIST CRACK OFF PERSON RADHA GARCIA M.D. Performed By: #### C BC, MG, CMP, ESR, LIPASE, TSH3 #### [address] Basophils/100 WBC (Bld) 0.6 % Normal . [facility] Comment on above: Performed By: #### C BC, MG, CMP, ESR, LIPASE, TSH3 #### [address] Eosinophils (Bld) [#/Vol] 0.0 10*3/uL Normal 0.0-0.45 [facility] Comment on above: Performed By: #### C BC, MG, CMP, ESR, LIPASE, TSH3 #### [address] Eosinophils/100 WBC (Bld) 0.0 % Normal . [facility] Comment on above: Performed By: #### C BC, MG, CMP, ESR, LIPASE, TSH3 #### [address] Erythrocyte distribution width (RBC) [Ratio] 18.2 % High 11.9-15.3 [facility] Comment on above: Performed By: #### C BC, MG, CMP, ESR, LIPASE, TSH3 #### [address] Hematocrit (Bld) [Volume fraction] 30.1 % Low 34.0-46.4 [facility] Comment on above: Performed By: #### C BC, MG, CMP, ESR, LIPASE, TSH3 #### [address] Hemoglobin (Bld) [Mass/Vol] 9.8 g/dL Low 11.8-15.4 [facility] Comment on above: Performed By: #### C BC, MG, CMP, ESR, LIPASE, TSH3 #### [place] [address] [place] Lymphocytes (Bld) [#/Vol] 1.6 10*3/uL Normal 1.00-4.8 [facility] Comment on above: Performed By: #### C BC, MG, CMP, ESR, LIPASE, TSH3 #### [address] Lymphocytes/100 WBC (Bld) 14.4 % Normal . [facility] Comment on above: Performed By: #### C BC, MG, CMP, ESR, LIPASE, TSH3 #### [address] MCH (RBC) [Entitic mass] 25.8 pg Normal 24.7-34.3 [facility] Comment on above: Performed By: #### C BC, MG, CMP, ESR, LIPASE, TSH3 #### [address] MCV (RBC) [Entitic vol] 79.0 fL Low 80-100 [facility] Comment on above: Performed By: #### C BC, MG, CMP, ESR, LIPASE, TSH3 #### [address] Mean Corpuscular HGB Conc 32.6 g/dL Normal 32.0-35.0 [facility] Comment on above: Performed By: #### C BC, MG, CMP, ESR, LIPASE, TSH3 #### [address] Monocytes (Bld) [#/Vol] 0.6 10*3/uL Normal 0.0-0.8 [facility] Comment on above: Performed By: #### C BC, MG, CMP, ESR, LIPASE, TSH3 #### [address] Monocytes/100 WBC (Bld) 5.4 % Normal . [facility] Comment on above: Performed By: #### C BC, MG, CMP, ESR, LIPASE, TSH3 #### [address] Neutrophils (Bld) [#/Vol] 8.9 10*3/uL High 1.8-7.7 [facility] Comment on above: Performed By: #### C BC, MG, CMP, ESR, LIPASE, TSH3 #### [address] Neutrophils/100 WBC (Bld) 79.6 % Normal . [facility] Comment on above: Performed By: #### C BC, MG, CMP, ESR, LIPASE, TSH3 #### [address] NRBC% 0.0 /100{WBC} Normal 0-0.5 [facility] Comment on above: Performed By: #### C BC, MG, CMP, ESR, LIPASE, TSH3 #### [address] Platelet mean volume (Bld) [Entitic vol] 8.0 fL Normal 6.3-10.7 [facility] Comment on above: Performed By: #### C BC, MG, CMP, ESR, LIPASE, TSH3 #### [address] Platelets (Bld) [#/Vol] 431 10*3/uL Normal 150-450 [facility] Comment on above: Performed By: #### C BC, MG, CMP, ESR, LIPASE, TSH3 #### [address] RBC (Bld) [#/Vol] 3.80 10*6/uL Normal 3.60-5.00 [facility] Comment on above: Performed By: #### C BC, MG, CMP, ESR, LIPASE, TSH3 #### [address] WBC (Bld) [#/Vol] 11.2 10*3/uL Normal 3.8-11.6 [facility] Comment on above: Performed By: #### C BC, MG, CMP, ESR, LIPASE, TSH3 #### [address] Eosinophils Auto (Bld) [#/Vo l]Ordered By: Chandrika Lee on 06-05-2022 Eosinophils (Bld) [#/Vol] 0.0 10*3/uL 0.0-0.45 [facility] Eosinophils/100 WBC Auto (Bl d)Ordered By: Chandrika Lee on 06-05-2022 Eosinophils/100 WBC (Bld) 0.0 % . [facility] Erythrocyte distribution wid th Auto (RBC) [Ratio]Ordered By: Chandrika Lee on 06-05-2022 Erythrocyte distribution width (RBC) [Ratio] 18.2 % 11.9-15.3 [facility] Hematocrit Auto (Bld) [Volum e fraction]Ordered By: Chandrika Lee on 06-05-2022 Hematocrit (Bld) [Volume fraction] 30.1 % 34.0-46.4 [facility] Hemoglobin [Mass/volume] in BloodOrdered By: Chandrika Lee on 06-05-2022 Hemoglobin (Bld) [Mass/Vol] 9.8 g/dL 11.8-15.4 [facility] Leukocytes [#/volume] correc rosales for nucleated erythrocytes in Blood by Automated counOrdered By: Chandrika Lee on 06-05-2022 WBC corrected for nucl RBC Auto (Bld) [#/Vol] 11.2 10*3/uL 3.8-11.6 [facility] Lymphocytes Auto (Bld) [#/Vo l]Ordered By: Chandrika Lee on 06-05-2022 Lymphocytes (Bld) [#/Vol] 1.6 10*3/uL 1.00-4.8 [facility] Lymphocytes/100 WBC Auto (Bl d)Ordered By: Chandrika Lee on 06-05-2022 Lymphocytes/100 WBC (Bld) 14.4 % . [facility] MCH Auto (RBC) [Entitic mass ]Ordered By: Chandrika Lee on 06-05-2022 MCH (RBC) [Entitic mass] 25.8 pg 24.7-34.3 [facility] MCHC Auto (RBC) [Mass/Vol]Or dered By: Chandrika Lee on 06-05-2022 MCHC (RBC) [Mass/Vol] 32.6 g/dL 32.0-35.0 [facility] MCV Auto (RBC) [Entitic vol] Ordered By: Chandrika Lee on 06-05-2022 MCV (RBC) [Entitic vol] 79.0 fL 80-100 [facility] Monocytes Auto (Bld) [#/Vol] Ordered By: Chandrika Lee on 06-05-2022 Monocytes (Bld) [#/Vol] 0.6 10*3/uL 0.0-0.8 [facility] Monocytes/100 WBC Auto (Bld) Ordered By: Chandrika Lee on 06-05-2022 Monocytes/100 WBC (Bld) 5.4 % . [facility] Neutrophils Auto (Bld) [#/Vo l]Ordered By: Chandrika Lee on 06-05-2022 Neutrophils (Bld) [#/Vol] 8.9 10*3/uL 1.8-7.7 [facility] Neutrophils/100 WBC Auto (Bl d)Ordered By: Chandrika Lee on 06-05-2022 Neutrophils/100 WBC (Bld) 79.6 % . [facility] Nucleated erythrocytes [Pres ence] in Blood by Automated countOrdered By: Chandrika Lee on 06-05-2022 Nucleated RBC Auto Ql (Bld) 0.0 /100{WBC} 0-0.5 [facility] Platelet mean volume Auto (B ld) [Entitic vol]Ordered By: Chandrika Lee on 06-05-2022 Platelet mean volume (Bld) [Entitic vol] 8.0 fL 6.3-10.7 [facility] Platelets Auto (Bld) [#/Vol] Ordered By: Chandrika Lee on 06-05-2022 Platelets (Bld) [#/Vol] 431 10*3/uL 150-450 [facility] RBC Auto (Bld) [#/Vol]Ordere d By: Chandrika Lee on 06-05-2022 RBC (Bld) [#/Vol] 3.80 10*6/uL 3.60-5.00 [facility] WBC Auto (Bld) [#/Vol]Ordere d By: Chandrika Lee on 06-05-2022 WBC (Bld) [#/Vol] 11.2 10*3/uL 3.8-11.6 [facility] CBC AUTO DIFFon 06-04-2022 BASO # 0.0 103/ul Normal 0.0-0.1 [facility] Comment on above: Performed By: #### P T, PTT #### [facility] [address] [place] [address] [address] Tori Thomas Basophils/100 WBC (Bld) 0.6 % Normal 0.2-2.0 [facility] Comment on above: Performed By: #### P T, PTT #### [facility] [address] [place] [address] [address] Tori Thomas EO # 0.1 103/ul Normal 0.0-0.7 [facility] Comment on above: Performed By: #### P T, PTT #### [facility] [address] [place] [address] Dr. Tori Thomas Eosinophils/100 WBC (Bld) 1.0 % Normal 0.9-7.0 [facility] Comment on above: Performed By: #### P T, PTT #### [facility] [address] [place] [address] [address] Tori Thomas Erythrocyte distribution width (RBC) [Ratio] 16.7 % Critically high 11.0-15.0 [facility] Comment on above: Performed By: #### P T, PTT #### [facility] [address] [place] [address] [address] Tori Thomas Hematocrit (Bld) [Volume fraction] 23.4 % Critically low 36.0-48.0 [facility] Comment on above: Performed By: #### P T, PTT #### [facility] [address] [place] [address] Dr. Tori Thomas Hemoglobin (Bld) [Mass/Vol] 7.2 g/dL Critically low 12.0-16.0 [facility] Comment on above: Performed By: #### P T, PTT #### [facility] [address] [place] [address] [address] Tori Thomas IG # 0.06 10e3/ul Critically high 0.00-0.03 [facility] Comment on above: Performed By: #### P T, PTT #### [facility] [address] [place] [address] Dr. Tori Thomas IG % 0.9 % Critically high 0.0-0.5 [facility] Comment on above: Performed By: #### P T, PTT #### [facility] [address] [place] [address] [address] Troi Thomas LYMPH # 2.0 103/ul Normal 1.2-3.8 [facility] Comment on above: Performed By: #### P T, PTT #### [facility] [address] [place] [address] Dr. Tori Thomas Lymphocytes/100 WBC (Bld) 28.6 % Normal 20.5-60.0 [facility] Comment on above: Performed By: #### P T, PTT #### [facility] [address] [place] [address] Dr. Tori Thomas MANUAL DIFF REQ NO Normal [facility] Comment on above: Performed By: #### P T, PTT #### [facility] [address] [place] [address] Dr. Tori Thomas MCH (RBC) [Entitic mass] 25.2 pg Critically low 26.7-34.0 [facility] Comment on above: Performed By: #### P T, PTT #### [facility] [address] [place] [address] Dr. Tori Thomas MCHC (RBC) [Mass/Vol] 30.8 g/dL Normal 29.9-35.2 [facility] Comment on above: Performed By: #### P T, PTT #### [facility] [address] [place] [address] Dr. Tori Thomas MCV (RBC) [Entitic vol] 81.8 fL Normal 81.0-99.0 [facility] Comment on above: Performed By: #### P T, PTT #### [facility] [address] [place] [address] Dr. Tori Thomas MONO # 0.4 103/ul Normal 0.3-0.8 [facility] Comment on above: Performed By: #### P T, PTT #### [facility] [address] [place] [address] Dr. Tori Thomas Monocytes/100 WBC (Bld) 5.1 % Normal 1.7-12.0 [facility] Comment on above: Performed By: #### P T, PTT #### [facility] [address] [place] [address] Dr. Tori Thomas NEUT # 4.4 103/ul Normal 1.4-6.5 [facility] Comment on above: Performed By: #### P T, PTT #### [facility] [address] [place] [address] Dr. Tori Thomas Neutrophils/100 WBC (Bld) 63.8 % Normal 43.0-75.0 [facility] Comment on above: Performed By: #### P T, PTT #### [facility] [address] [place] [address] Dr. Tori Thomas Platelet mean volume (Bld) [Entitic vol] 9.3 fL Critically low 9.5-13.5 [facility] Comment on above: Performed By: #### P T, PTT #### [facility] [address] [place] [address] Dr. Tori Thomas PLT 390 103/ul Normal 150-450 [facility] Comment on above: Performed By: #### P T, PTT #### [facility] [address] [place] [address] Dr. Tori Thomas RBC 2.86 106/ul Critically low 4.20-5.40 [facility] Comment on above: Performed By: #### P T, PTT #### [facility] [address] [place] [address] Dr. Tori Thomas WBC 6.9 103/ul Normal 4.0-11.0 [facility] Comment on above: Performed By: #### P T, PTT #### [facility] [address] [place] [address] Dr. Tori Thomas FERRITINon 06-04-2022 Ferritin [Mass/Vol] 10.0 ng/mL Normal 6.2-137.0 [facility] Comment on above: Performed By: #### P T, PTT #### [facility] [address] [place] [address] [address] Tori Thomas IRONon 06-04-2022 Iron [Mass/Vol] 124.0 ug/dL Normal 50.0-170.0 [facility] Comment on above: Performed By: #### P T, PTT #### [facility] [address] [place] [address] [address] Tori Thomas LeukoReduced RBCon LeukoReduced RBC TRANSFUSED 06/05/22 0035 [facility] Type and Screenon 06-04-2022 ABO and Rh group Nom (Bld) Blood group O Rh(D) positive [facility] VITAMIN B12on 06-04-2022 Cobalamin (Vitamin B12) [Mass/Vol] 608.0 pg/mL Normal 193.0-986. 0 [facility] Comment on above: Performed By: #### P T, PTT #### [facility] [address] [place] [address] [address] Tori Thomas Urine culture routineOrdered By: Noman Armando on 06-01-2022 Bacteria identified Cx Nom (U) Escherichia coli (ESBL) [facility] Albumin [Mass/volume] in Ser um or PlasmaOrdered By: Noman Armando on 05-30-2022 Albumin [Mass/Vol] 3.8 g/dL 3.2-5.5 [facility] Automated erythrocytes count in urine sediment (number/area)Ordered By: Noman Armando on 05-30-2022 RBC Auto (Urine sed) [#/Area] 3-4 [HPF] 0-4 [facility] Automated leukocytes count i n urine sediment (number/area)Ordered By: Noman Armando on 05-30-2022 WBC Auto (Urine sed) [#/Area] 50-100 [HPF] 0-4 [facility] Basophils Auto (Bld) [#/Vol] Ordered By: Noman Armando on 05-30-2022 Basophils (Bld) [#/Vol] 0.0 10*3/uL 0.0-0.2 [facility] Basophils/100 WBC Auto (Bld) Ordered By: Noman Armando on 05-30-2022 Basophils/100 WBC (Bld) 0.2 % . [facility] Bilirubin Test strip Ql (U)O rdered By: Noman Armando on 05-30-2022 Bilirubin Ql (U) Negative Negative [facility] CT abdomen pelvis wo conon 1 07-31-2021 CT abdomen pelvis wo con [facility] [place] [address] CT Scan Report Signed Patient: Raquel Correa MR#: [id number] : 1985 Acct:[id number] Age/Sex: 37 / F ADM Date: 05/30/22 Loc: ER Room: Type: [facility] ER Attending Dr: Copies to: Noman Armando [...] Gregory Hart M.D.05/30/2022 2:08 PM Dictation Location: [place] [address] Transcribed By: [facility] 05/30/22 1408 Dictated By: Gregory Hart DO 05/30/22 1359 Signed By: 05/30/22 1408 Normal [facility] Color Auto (U)Ordered By: Christianne Armando on 05-30-2022 Color (U) Yellow Yellow [facility] Complete Blood Count Auto Di ffon 05-30-2022 Basophils (Bld) [#/Vol] 0.0 10*3/uL Normal 0.0-0.2 [facility] Comment on above: Result Comment: PERF ORMED BY: [place] [address] PATHOLOGIST CRACK OFF PERSON RADHA GARCIA M.D. Performed By: #### C BC, MG, CMP, ESR, LIPASE, TSH3 #### [address] Basophils/100 WBC (Bld) 0.2 % Normal . [facility] Comment on above: Performed By: #### C BC, MG, CMP, ESR, LIPASE, TSH3 #### [address] Eosinophils (Bld) [#/Vol] 0.0 10*3/uL Normal 0.0-0.45 [facility] Comment on above: Performed By: #### C BC, MG, CMP, ESR, LIPASE, TSH3 #### [address] Eosinophils/100 WBC (Bld) 0.4 % Normal . [facility] Comment on above: Performed By: #### C BC, MG, CMP, ESR, LIPASE, TSH3 #### [address] Erythrocyte distribution width (RBC) [Ratio] 19.4 % High 11.9-15.3 [facility] Comment on above: Performed By: #### C BC, MG, CMP, ESR, LIPASE, TSH3 #### [address] Hematocrit (Bld) [Volume fraction] 35.6 % Normal 34.0-46.4 [facility] Comment on above: Performed By: #### C BC, MG, CMP, ESR, LIPASE, TSH3 #### [address] Hemoglobin (Bld) [Mass/Vol] 11.3 g/dL Low 11.8-15.4 [facility] Comment on above: Performed By: #### C BC, MG, CMP, ESR, LIPASE, TSH3 #### [address] Lymphocytes (Bld) [#/Vol] 0.9 10*3/uL Low 1.00-4.8 [facility] Comment on above: Performed By: #### C BC, MG, CMP, ESR, LIPASE, TSH3 #### [address] Lymphocytes/100 WBC (Bld) 15.1 % Normal . [facility] Comment on above: Performed By: #### C BC, MG, CMP, ESR, LIPASE, TSH3 #### [address] MCH (RBC) [Entitic mass] 25.0 pg Normal 24.7-34.3 [facility] Comment on above: Performed By: #### C BC, MG, CMP, ESR, LIPASE, TSH3 #### [address] MCV (RBC) [Entitic vol] 79.2 fL Low 80-100 [facility] Comment on above: Performed By: #### C BC, MG, CMP, ESR, LIPASE, TSH3 #### [address] Mean Corpuscular HGB Conc 31.6 g/dL Low 32.0-35.0 [facility] Comment on above: Performed By: #### C BC, MG, CMP, ESR, LIPASE, TSH3 #### [address] Monocytes (Bld) [#/Vol] 0.4 10*3/uL Normal 0.0-0.8 [facility] Comment on above: Performed By: #### C BC, MG, CMP, ESR, LIPASE, TSH3 #### [address] Monocytes/100 WBC (Bld) 23.71 % High 0.00-20.00 [facility] Comment on above: Result Comment: For adults in ED, MDW > 20.0 may be associated with a higher risk of sepsis during the first 12 hrs of hospital admission Performed By: #### C BC, MG, CMP, ESR, LIPASE, TSH3 #### [address] Monocytes/100 WBC (Bld) 7.2 % Normal . [facility] Comment on above: Performed By: #### C BC, MG, CMP, ESR, LIPASE, TSH3 #### [address] Neutrophils (Bld) [#/Vol] 4.8 10*3/uL Normal 1.8-7.7 [facility] Comment on above: Performed By: #### C BC, MG, CMP, ESR, LIPASE, TSH3 #### [address] Neutrophils/100 WBC (Bld) 77.1 % Normal . [facility] Comment on above: Performed By: #### C BC, MG, CMP, ESR, LIPASE, TSH3 #### [address] NRBC% 0.1 /100{WBC} Normal 0-0.5 [facility] Comment on above: Performed By: #### C BC, MG, CMP, ESR, LIPASE, TSH3 #### [address] Platelet mean volume (Bld) [Entitic vol] 8.5 fL Normal 6.3-10.7 [facility] Comment on above: Performed By: #### C BC, MG, CMP, ESR, LIPASE, TSH3 #### [address] Platelets (Bld) [#/Vol] 372 10*3/uL Normal 150-450 [facility] Comment on above: Performed By: #### C BC, MG, CMP, ESR, LIPASE, TSH3 #### [address] RBC (Bld) [#/Vol] 4.50 10*6/uL Normal 3.60-5.00 [facility] Comment on above: Performed By: #### C BC, MG, CMP, ESR, LIPASE, TSH3 #### [address] WBC (Bld) [#/Vol] 6.2 10*3/uL Normal 3.8-11.6 [facility] Comment on above: Performed By: #### C BC, MG, CMP, ESR, LIPASE, TSH3 #### [address] Comprehensive Metabolic Pane carlos 05-30-2022 Albumin [Mass/Vol] 3.8 g/dL Normal 3.2-5.5 [facility] Comment on above: Performed By: #### C BC, MG, CMP, ESR, LIPASE, TSH3 #### [address] Albumin/Globulin [Mass ratio] 1.0 {ratio} Normal [facility] Comment on above: Performed By: #### C BC, MG, CMP, ESR, LIPASE, TSH3 #### [address] ALP [Catalytic activity/Vol] 71 U/L Normal 32-92 [facility] Comment on above: Performed By: #### C BC, MG, CMP, ESR, LIPASE, TSH3 #### [facility] [address] [place] [address] ALT [Catalytic activity/Vol] 21 U/L Normal 10-60 [facility] Comment on above: Performed By: #### C BC, MG, CMP, ESR, LIPASE, TSH3 #### [address] Anion gap [Moles/Vol] 11.8 mmol/L Normal 6.0-15.0 [facility] Comment on above: Performed By: #### C BC, MG, CMP, ESR, LIPASE, TSH3 #### [address] AST [Catalytic activity/Vol] 16 U/L Normal 10-42 [facility] Comment on above: Performed By: #### C BC, MG, CMP, ESR, LIPASE, TSH3 #### [address] Bilirubin [Mass/Vol] 0.7 mg/dL Normal 0.3-1.2 [place] Comment on above: Performed By: #### C BC, MG, CMP, ESR, LIPASE, TSH3 #### [address] Calcium [Mass/Vol] 9.4 mg/dL Normal 8.2-10.2 [facility] Comment on above: Performed By: #### C BC, MG, CMP, ESR, LIPASE, TSH3 #### [address] Chloride [Moles/Vol] 101 mmol/L Normal 95-114 [place] Comment on above: Performed By: #### C BC, MG, CMP, ESR, LIPASE, TSH3 #### [address] CO2 [Moles/Vol] 24.1 mmol/L Normal 22.0-30.0 [facility] Comment on above: Performed By: #### C BC, MG, CMP, ESR, LIPASE, TSH3 #### [place] [id number] [place] Creatinine [Mass/Vol] 0.71 mg/dL Normal 0.44-1.03 [facility] Comment on above: Performed By: #### C BC, MG, CMP, ESR, LIPASE, TSH3 #### [address] Creatinine Clr Calc Pharmacy 91.48 [facility] Comment on above: Result Comment: PERF ORMED BY: [place] [address] PATHOLOGIST CRACK OFF PERSON RADHA GARCIA M.D. Performed By: #### C BC, MG, CMP, ESR, LIPASE, TSH3 #### [address] Estimated GFR ( Letty > 60 [facility] Comment on above: Result Comment: GFR estimated reference range: According to KDOQI guidelines, <60 ml/min/1.73m2 is sufficient to diagnose a patient with chronic kidney disease. Performed By: #### C BC, MG, CMP, ESR, LIPASE, TSH3 #### [address] Estimated GFR (Non- Am > 60 [facility] Comment on above: Performed By: #### C BC, MG, CMP, ESR, LIPASE, TSH3 #### [address] Globulin (S) [Mass/Vol] 3.7 g/dL [facility] Comment on above: Performed By: #### C BC, MG, CMP, ESR, LIPASE, TSH3 #### [address] Glucose [Mass/Vol] 102 mg/dL High 70-100 [facility] Comment on above: Result Comment: [place] Glucose Reference Range is dependent on time and content of last meal. Glucose of more than 200 mg/dL in a nonstressed, ambulatory subject supports the diagnosis of Diabetes Mellitus. ADA recommended reference range Performed By: #### C BC, MG, CMP, ESR, LIPASE, TSH3 #### [address] [place] [address] [place] Potassium [Moles/Vol] 2.9 mmol/L Off scale low 3.5-5.1 [facility] Comment on above: Result Comment: Resu lts called at 1257 on 05/30/22 Performed By: #### C BC, MG, CMP, ESR, LIPASE, TSH3 #### [facility] [address] Protein [Mass/Vol] 7.5 g/dL Normal 6.1-7.9 [facility] Comment on above: Performed By: #### C BC, MG, CMP, ESR, LIPASE, TSH3 #### [facility] [address] Sodium [Moles/Vol] 134 mmol/L Low 136-146 [facility] Comment on above: Performed By: #### C BC, MG, CMP, ESR, LIPASE, TSH3 #### [address] Urea nitrogen [Mass/Vol] 7 mg/dL Low 9-23 [facility] Comment on above: Performed By: #### C BC, MG, CMP, ESR, LIPASE, TSH3 #### [address] Creatinine and Glomerular fi ltration rate.predicted panel (S/P/Bld)Ordered By: Noman Armando on 05-30-2022 Creatinine [Mass/Vol] 0.71 mg/dL 0.44-1.03 [facility] Dipstick and Microscopicon 1 07-31-2021 Appearance (U) Cloudy Critically abnormal Clear [facility] Comment on above: Order Comment: Name Collection Type:: Clean-Voided Midstream Performed By: #### L IPASE, PT, CBC, PTT, CMP #### [address] Bacteria,Urine 4+ High None Seen [facility] Comment on above: Order Comment: Name Collection Type:: Clean-Voided Midstream Performed By: #### L IPASE, PT, CBC, PTT, CMP #### [address] [place] [address] [place] Bilirubin,Urine Negative Normal Negative [facility] Comment on above: Order Comment: Name Collection Type:: Clean-Voided Midstream Performed By: #### L IPASE, PT, CBC, PTT, CMP #### [facility] [address] [place] [address] [place] Color (U) Yellow Normal Yellow [facility] Comment on above: Order Comment: Name Collection Type:: Clean-Voided Midstream Performed By: #### L IPASE, PT, CBC, PTT, CMP #### [facility] [address] [place] [address] Glucose Ql (U) Normal Normal Normal [facility] Comment on above: Order Comment: Name Collection Type:: Clean-Voided Midstream Performed By: #### L IPASE, PT, CBC, PTT, CMP #### [facility] [address] [place] [address] [place] Hyaline Casts,Urine 9-19 High 0-8 [facility] Comment on above: Order Comment: Name Collection Type:: Clean-Voided Midstream Performed By: #### L IPASE, PT, CBC, PTT, CMP #### [facility] [address] [place] [address] [place] Ketones Ql (U) Trace High Negative [facility] Comment on above: Order Comment: Name Collection Type:: Clean-Voided Midstream Performed By: #### L IPASE, PT, CBC, PTT, CMP #### [facility] [address] [place] [address] [place] Leukocyte esterase Test strip Ql (U) 3+ High Negative [facility] Comment on above: Order Comment: Name Collection Type:: Clean-Voided Midstream Performed By: #### L IPASE, PT, CBC, PTT, CMP #### [facility] [address] [place] [address] [place] Nitrite,Urine Positive High Negative [facility] Comment on above: Order Comment: Name Collection Type:: Clean-Voided Midstream Performed By: #### L IPASE, PT, CBC, PTT, CMP #### [address] [place] [address] [place] Occult Blood,Urine Negative Normal Negative [facility] Comment on above: Order Comment: Name Collection Type:: Clean-Voided Midstream Performed By: #### L IPASE, PT, CBC, PTT, CMP #### [address] pH (U) 6.0 [pH] Normal 5.0-9.0 [facility] Comment on above: Order Comment: Name Collection Type:: Clean-Voided Midstream Performed By: #### L IPASE, PT, CBC, PTT, CMP #### [address] Protein,Urine Trace High Negative [facility] Comment on above: Order Comment: Name Collection Type:: Clean-Voided Midstream Performed By: #### L IPASE, PT, CBC, PTT, CMP #### [address] RBC,Urine 3-4 Normal 0-4 [facility] Comment on above: Order Comment: Name Collection Type:: Clean-Voided Midstream Performed By: #### L IPASE, PT, CBC, PTT, CMP #### [address] Specificy [place],Urine 1.013 Normal 1.001-1.03 0 [facility] Comment on above: Order Comment: Name Collection Type:: Clean-Voided Midstream Performed By: #### L IPASE, PT, CBC, PTT, CMP #### [address] Squamous Epithelial Cell,Urine 0-1 Normal 0-2 [facility] Comment on above: Order Comment: Name Collection Type:: Clean-Voided Midstream Performed By: #### L IPASE, PT, CBC, PTT, CMP #### [address] Urobilinogen,Urine Normal Normal Normal [facility] Comment on above: Order Comment: Name Collection Type:: Clean-Voided Midstream Performed By: #### L IPASE, PT, CBC, PTT, CMP #### [facility] [address] WBC,Urine 50-100 High 0-4 [facility] Comment on above: Order Comment: Name Collection Type:: Clean-Voided Midstream Performed By: #### L IPASE, PT, CBC, PTT, CMP #### [facility] [address] [place] [address] [place] Eosinophils Auto (Bld) [#/Vo l]Ordered By: Noman Armando on 05-30-2022 Eosinophils (Bld) [#/Vol] 0.0 10*3/uL 0.0-0.45 [facility] Eosinophils/100 WBC Auto (Bl d)Ordered By: Noman Armando on 05-30-2022 Eosinophils/100 WBC (Bld) 0.4 % . [facility] Erythrocyte distribution wid th Auto (RBC) [Ratio]Ordered By: Noman Armando on 05-30-2022 Erythrocyte distribution width (RBC) [Ratio] 19.4 % 11.9-15.3 [facility] Estimated glomerular filtrat ion rate (GFR) non- AmericanOrdered By: Noman Armando on 05-30-2022 GFR/1.73 sq M.predicted among non-blacks MDRD (S/P/Bld) [Vol rate/Area] > 60 mL/Min [facility] Globulin Calc (S) [Mass/Vol] Ordered By: Noman Armando on 05-30-2022 Globulin (S) [Mass/Vol] 3.7 g/dL [facility] HCG ( test) [place].rapi d Ql (U)Ordered By: Noman Armando on 05-30-2022 HCG ( test) Ql (U) Negative [facility] HCG,Urineon 05-30-2022 Beta HCG ( test) Ql (U) Negative Normal [facility] Comment on above: Order Comment: Name Collection Type:: Clean-Voided Midstream Result Comment: PERF ORMED BY: [place] [address] PATHOLOGIST CRACK OFF PERSON RADHA GARCIA M.D. Performed By: #### L IPASE, PT, CBC, PTT, CMP #### [facility] [address] Hematocrit Auto (Bld) [Volum e fraction]Ordered By: Noman Armando on 05-30-2022 Hematocrit (Bld) [Volume fraction] 35.6 % 34.0-46.4 [facility] Hemoglobin [Mass/volume] in BloodOrdered By: Noman Armando on 05-30-2022 Hemoglobin (Bld) [Mass/Vol] 11.3 g/dL 11.8-15.4 [facility] Ketones Auto test strip (U) [Mass/Vol]Ordered By: Noman Armando on 05-30-2022 Ketones (U) [Mass/Vol] Trace Negative [facility] - UrinalysisOrder ed By: Noman Armando on 05-30-2022 Hyaline casts LM Ql (Urine sed) 19 [LPF] 0-8 [facility] Lactic Acidon 05-30-2022 Lactate [Moles/Vol] 1.1 mmol/L Normal 0.5-2.2 [facility] Comment on above: Result Comment: PERF ORMED BY: [place] [address] PATHOLOGIST CRACK OFF PERSON RADHA GARCIA M.D. Performed By: #### C BC, MG, CMP, ESR, LIPASE, TSH3 #### [facility] [address] [place] [address] Leukocytes [#/volume] correc rosales for nucleated erythrocytes in Blood by Automated counOrdered By: Noman Armando on 05-30-2022 WBC corrected for nucl RBC Auto (Bld) [#/Vol] 6.2 10*3/uL 3.8-11.6 [facility] Lymphocytes Auto (Bld) [#/Vo l]Ordered By: Noman Armando on 05-30-2022 Lymphocytes (Bld) [#/Vol] 0.9 10*3/uL 1.00-4.8 [facility] Lymphocytes/100 WBC Auto (Bl d)Ordered By: Noman Armando on 05-30-2022 Lymphocytes/100 WBC (Bld) 15.1 % . [facility] MCH Auto (RBC) [Entitic mass ]Ordered By: Noman Armando on 05-30-2022 MCH (RBC) [Entitic mass] 25.0 pg 24.7-34.3 [facility] MCHC Auto (RBC) [Mass/Vol]Or dered By: Noman Armando on 05-30-2022 MCHC (RBC) [Mass/Vol] 31.6 g/dL 32.0-35.0 [facility] MCV Auto (RBC) [Entitic vol] Ordered By: Noman Armando on 05-30-2022 MCV (RBC) [Entitic vol] 79.2 fL 80-100 [facility] Monocyte distribution width [Entitic volume] in Blood by AutomatedOrdered By: Noman Armando on 05-30-2022 Monocyte distribution width Auto (Bld) [Entitic vol] 23.71 % 0.00-20.00 [facility] Comment on above: For adults in ED, MD W > 20.0 may be associated with a higher risk of sepsis during the first 12 hrs of hospital admission Monocytes Auto (Bld) [#/Vol] Ordered By: Noman Armando on 05-30-2022 Monocytes (Bld) [#/Vol] 0.4 10*3/uL 0.0-0.8 [facility] Monocytes/100 WBC Auto (Bld) Ordered By: Noman Armando on 05-30-2022 Monocytes/100 WBC (Bld) 7.2 % . [facility] Neutrophils Auto (Bld) [#/Vo l]Ordered By: Noman Armando on 05-30-2022 Neutrophils (Bld) [#/Vol] 4.8 10*3/uL 1.8-7.7 [facility] Neutrophils/100 WBC Auto (Bl d)Ordered By: Noman Armando on 05-30-2022 Neutrophils/100 WBC (Bld) 77.1 % . [facility] Nitrite Test strip Ql (U)Ord ered By: Noman Armando on 05-30-2022 Nitrite Ql (U) Positive Negative [facility] No Panel InformationOrdered By: Noman Armando on 05-30-2022 Estimated GFR () > 60 mL/Min [facility] Comment on above: GFR estimated refere nce range: According to KDOQI guidelines, <60 ml/min/1.73m2 is sufficient to diagnose a patient with chronic kidney disease. Pharmacy Creatinine Clearance (Chem 91.48 [facility] Nucleated erythrocytes [Pres ence] in Blood by Automated countOrdered By: Noman Armando on 05-30-2022 Nucleated RBC Auto Ql (Bld) 0.1 /100{WBC} 0-0.5 [facility] Platelet mean volume Auto (B ld) [Entitic vol]Ordered By: Noman Armando on 05-30-2022 Platelet mean volume (Bld) [Entitic vol] 8.5 fL 6.3-10.7 [facility] Platelets Auto (Bld) [#/Vol] Ordered By: Noman Armando on 05-30-2022 Platelets (Bld) [#/Vol] 372 10*3/uL 150-450 [facility] Protein Auto test strip (U) [Mass/Vol]Ordered By: Noman Armando on 05-30-2022 Protein (U) [Mass/Vol] Trace mg/dL Negative [facility] Protein [Mass/volume] in Ser um or PlasmaOrdered By: Noman Armando on 05-30-2022 Protein [Mass/Vol] 7.5 g/dL 6.1-7.9 [facility] RBC Auto (Bld) [#/Vol]Ordere d By: Noman Armando on 05-30-2022 RBC (Bld) [#/Vol] 4.50 10*6/uL 3.60-5.00 [facility] Serum or plasma alanine carlos otransferase measurement without P-5'-P (enzymatic activiOrdered By: Noman Armando on 05-30-2022 ALT No additional P-5'-P [Catalytic activity/Vol] 21 U/L 10-60 [facility] Serum or plasma albumin/glob ulin mass ratioOrdered By: Noman Armando on 05-30-2022 Albumin/Globulin [Mass ratio] 1.0 {ratio} [facility] Serum or plasma alkaline belkys sphatase measurement (enzymatic activity/volume)Ordered By: Noman Armando on 05-30-2022 ALP [Catalytic activity/Vol] 71 U/L 32-92 [facility] Serum or plasma anion gap de terminationOrdered By: Noman Armando on 05-30-2022 Anion gap [Moles/Vol] 11.8 mmol/L 6.0-15.0 [facility] Serum or plasma aspartate am inotransferase measurement (enzymatic activity/volume)Ordered By: Noman Armando on 05-30-2022 AST [Catalytic activity/Vol] 16 U/L 10- [facility] Serum or plasma calcium mariana urement (mass/volume)Ordered By: Noman Armando on 05-30-2022 Calcium [Mass/Vol] 9.4 mg/dL 8.2-10.2 [facility] Serum or plasma chloride jaqui surement (moles/volume)Ordered By: Noman Armando on 05-30-2022 Chloride [Moles/Vol] 101 mmol/L 95-114 [place] Serum or plasma glucose mariana urement (mass/volume)Ordered By: Noman Armando on 05-30-2022 Glucose [Mass/Vol] 102 mg/dL 70-100 [facility] Comment on above: ADA recommended refe rence rangeRandom Glucose Reference Range is dependent on time and content of last meal. Glucose of more than 200 mg/dL in a nonstressed, ambulatory subject supports the diagnosis of Diabetes Mellitus. Serum or plasma potassium me asurement (moles/volume)Ordered By: Noman Armando on 05-30-2022 Potassium [Moles/Vol] 2.9 mmol/L 3.5-5.1 [facility] Comment on above: Results calledat 125 7 on 05/30/22 Serum or plasma sodium measu rement (moles/volume)Ordered By: Noman Armando on 05-30-2022 Sodium [Moles/Vol] 134 mmol/L 136-146 [facility] Serum or plasma total biliru bin measurement (mass/volume)Ordered By: Noman Armando on 05-30-2022 Bilirubin [Mass/Vol] 0.7 mg/dL 0.3-1.2 [place] Serum or plasma total carbon dioxide measurement (moles/volume)Ordered By: Noman Armando on 05-30-2022 CO2 [Moles/Vol] 24.1 mmol/L 22.0-30.0 [facility] Serum or plasma urea nitroge n measurement (mass/volume)Ordered By: Noman Armando on 05-30-2022 Urea nitrogen [Mass/Vol] 7 mg/dL 03-19 [facility] Specific gravity Auto test s trip (U) [Rel density]Ordered By: Noman Armando on 05-30-2022 Specific gravity (U) [Rel density] 1.013 1.001-1.03 0 [facility] Squamous epithelial cells de tection in urine sediment by light microscopyOrdered By: Noman Armando on 05-30-2022 Epithelial cells.squamous LM Ql (Urine sed) 0-1 [HPF] 0-2 [facility] Urine Cultureon 05-30-2022 Bacteria identified Cx Nom (U) ORGANISM: Escherichia coli (ESBL) (O:ESCCOLESBL) [place] Count >100,000 Aerobic DIVYA Charge (NUC86) SUSCEPTIBILITY [...] RESISTANT TO ALL B-LACTAM DRUGS. PERFORMED BY: [facility] [address] [place] [address] PATHOLOGIST CRACK OFF PERSON RADHA GARCIA M.D. Normal [facility] Comment on above: Performed By: #### L IPASE, PT, CBC, PTT, CMP #### [facility] [address] Urine bacteria detection by automated methodOrdered By: Noman Armando on 05-30-2022 Bacteria Auto Ql (U) 4+ None Seen [place] Urine clarity by refractomet ry automatedOrdered By: Noman Armando on 05-30-2022 Clarity Refractometry automated (U) Cloudy Clear [facility] Urine culture routineOrdered By: Noman Armando on 05-30-2022 Bacteria identified Cx Nom (U) Escherichia coli (ESBL) [facility] Urine glucose measurement by automated test strip (mass/volume)Ordered By: Noman Armando on 05-30-2022 Glucose Auto test strip (U) [Mass/Vol] Normal mg/dL Normal [facility] Urine hemoglobin detection b y automated test stripOrdered By: Noman Armando on 05-30-2022 Hemoglobin Auto test strip Ql (U) Negative Negative [facility] Urine lactic acid measuremen tOrdered By: Noman Armando on 05-30-2022 Lactate (U) [Moles/Vol] 1.1 mmol/L 0.5-2.2 [facility] Urine leukocyte esterase det ection by automated test stripOrdered By: Noman Armando on 05-30-2022 Leukocyte esterase Auto test strip Ql (U) 3+ Negative [facility] Urobilinogen Auto test strip (U) [Mass/Vol]Ordered By: Noman Armando on 05-30-2022 Urobilinogen (U) [Mass/Vol] Normal mg/dL Normal [facility] WBC Auto (Bld) [#/Vol]Ordere d By: Noman Armando on 05-30-2022 WBC (Bld) [#/Vol] 6.2 10*3/uL 3.8-11.6 [facility] pH Auto test strip (U)Ordere d By: Noman Armando on 05-30-2022 pH (U) 6.0 [pH] 5.0-9.0 [facility] Basic Metabolic Panelon 11- Anion gap [Moles/Vol] 6.7 mmol/L Normal 6.0-15.0 [facility] Comment on above: Performed By: #### C BC, MG, CMP, ESR, LIPASE, TSH3 #### [facility] [address] [place] [address] Calcium [Mass/Vol] 8.7 mg/dL Normal 8.2-10.2 [facility] Comment on above: Performed By: #### C BC, MG, CMP, ESR, LIPASE, TSH3 #### [facility] [address] Chloride [Moles/Vol] 105 mmol/L Normal 95-114 [place] Comment on above: Performed By: #### C BC, MG, CMP, ESR, LIPASE, TSH3 #### [address] CO2 [Moles/Vol] 25.0 mmol/L Normal 22.0-30.0 [facility] Comment on above: Performed By: #### C BC, MG, CMP, ESR, LIPASE, TSH3 #### [address] Creatinine [Mass/Vol] 0.71 mg/dL Normal 0.44-1.03 [facility] Comment on above: Performed By: #### C BC, MG, CMP, ESR, LIPASE, TSH3 #### [address] Creatinine Clr Calc Pharmacy 91.48 [facility] Comment on above: Result Comment: PERF ORMED BY: [place] [address] PATHOLOGIST CRACK OFF PERSON RADHA GARCIA M.D. Performed By: #### C BC, MG, CMP, ESR, LIPASE, TSH3 #### [address] Estimated GFR ( Letty > 60 [facility] Comment on above: Result Comment: GFR estimated reference range: According to KDOQI guidelines, <60 ml/min/1.73m2 is sufficient to diagnose a patient with chronic kidney disease. Performed By: #### C BC, MG, CMP, ESR, LIPASE, TSH3 #### [address] Estimated GFR (Non- Am > 60 Normal [facility] Comment on above: Performed By: #### C BC, MG, CMP, ESR, LIPASE, TSH3 #### [facility] [address] Glucose [Mass/Vol] 106 mg/dL High 70-100 [facility] Comment on above: Result Comment: [facility] Glucose Reference Range is dependent on time and content of last meal. Glucose of more than 200 mg/dL in a nonstressed, ambulatory subject supports the diagnosis of Diabetes Mellitus. ADA recommended reference range Performed By: #### C BC, MG, CMP, ESR, LIPASE, TSH3 #### [address] Potassium [Moles/Vol] 3.7 mmol/L Normal 3.5-5.1 [facility] Comment on above: Performed By: #### C BC, MG, CMP, ESR, LIPASE, TSH3 #### [address] Sodium [Moles/Vol] 133 mmol/L Low 136-146 [facility] Comment on above: Performed By: #### C BC, MG, CMP, ESR, LIPASE, TSH3 #### [address] Urea nitrogen [Mass/Vol] 4 mg/dL Low 9-23 [facility] Comment on above: Performed By: #### C BC, MG, CMP, ESR, LIPASE, TSH3 #### [address] Basophils Auto (Bld) [#/Vol] Ordered By: Jessica Akhtar on 05-12-2022 Basophils (Bld) [#/Vol] 0.0 10*3/uL 0.0-0.2 [facility] Basophils/100 WBC Auto (Bld) Ordered By: Jessica Akhtar on 05-12-2022 Basophils/100 WBC (Bld) 0.4 % . [facility] Complete Blood Count Auto Di ffon 05-12-2022 Basophils (Bld) [#/Vol] 0.0 10*3/uL Normal 0.0-0.2 [facility] Comment on above: Result Comment: PERF ORMED BY: [place] [address] PATHOLOGIST CRACK OFF PERSON RADHA GARCIA M.D. Performed By: #### C BC, MG, CMP, ESR, LIPASE, TSH3 #### [address] Basophils/100 WBC (Bld) 0.4 % Normal . [facility] Comment on above: Performed By: #### C BC, MG, CMP, ESR, LIPASE, TSH3 #### [address] Eosinophils (Bld) [#/Vol] 0.0 10*3/uL Normal 0.0-0.45 [facility] Comment on above: Performed By: #### C BC, MG, CMP, ESR, LIPASE, TSH3 #### [address] Eosinophils/100 WBC (Bld) 0.5 % Normal . [facility] Comment on above: Performed By: #### C BC, MG, CMP, ESR, LIPASE, TSH3 #### [address] Erythrocyte distribution width (RBC) [Ratio] 19.3 % High 11.9-15.3 [facility] Comment on above: Performed By: #### C BC, MG, CMP, ESR, LIPASE, TSH3 #### [address] Hematocrit (Bld) [Volume fraction] 29.1 % Low 34.0-46.4 [facility] Comment on above: Performed By: #### C BC, MG, CMP, ESR, LIPASE, TSH3 #### [address] Hemoglobin (Bld) [Mass/Vol] 9.2 g/dL Low 11.8-15.4 [facility] Comment on above: Performed By: #### C BC, MG, CMP, ESR, LIPASE, TSH3 #### [address] Lymphocytes (Bld) [#/Vol] 1.6 10*3/uL Normal 1.00-4.8 [facility] Comment on above: Performed By: #### C BC, MG, CMP, ESR, LIPASE, TSH3 #### [address] Lymphocytes/100 WBC (Bld) 18.1 % Normal . [facility] Comment on above: Performed By: #### C BC, MG, CMP, ESR, LIPASE, TSH3 #### [address] MCH (RBC) [Entitic mass] 25.1 pg Normal 24.7-34.3 [facility] Comment on above: Performed By: #### C BC, MG, CMP, ESR, LIPASE, TSH3 #### [address] MCV (RBC) [Entitic vol] 79.6 fL Low 80-100 [facility] Comment on above: Performed By: #### C BC, MG, CMP, ESR, LIPASE, TSH3 #### [address] Mean Corpuscular HGB Conc 31.6 g/dL Low 32.0-35.0 [facility] Comment on above: Performed By: #### C BC, MG, CMP, ESR, LIPASE, TSH3 #### [address] Monocytes (Bld) [#/Vol] 0.6 10*3/uL Normal 0.0-0.8 [facility] Comment on above: Performed By: #### C BC, MG, CMP, ESR, LIPASE, TSH3 #### [address] Monocytes/100 WBC (Bld) 6.4 % Normal . [facility] Comment on above: Performed By: #### C BC, MG, CMP, ESR, LIPASE, TSH3 #### [address] Neutrophils (Bld) [#/Vol] 6.8 10*3/uL Normal 1.8-7.7 [facility] Comment on above: Performed By: #### C BC, MG, CMP, ESR, LIPASE, TSH3 #### [address] Neutrophils/100 WBC (Bld) 74.6 % Normal . [facility] Comment on above: Performed By: #### C BC, MG, CMP, ESR, LIPASE, TSH3 #### [address] Nucleated RBC/100 WBC (Bld) [Ratio] 0.0 % Normal 0-0.5 [facility] Comment on above: Performed By: #### C BC, MG, CMP, ESR, LIPASE, TSH3 #### [address] Platelet mean volume (Bld) [Entitic vol] 7.9 fL Normal 6.3-10.7 [facility] Comment on above: Performed By: #### C BC, MG, CMP, ESR, LIPASE, TSH3 #### [address] Platelets (Bld) [#/Vol] 385 10*3/uL Normal 150-450 [facility] Comment on above: Performed By: #### C BC, MG, CMP, ESR, LIPASE, TSH3 #### [address] RBC (Bld) [#/Vol] 3.66 10*6/uL Normal 3.60-5.00 [facility] Comment on above: Performed By: #### C BC, MG, CMP, ESR, LIPASE, TSH3 #### [address] WBC (Bld) [#/Vol] 9.1 10*3/uL Normal 4.5-11.0 [facility] Comment on above: Performed By: #### C BC, MG, CMP, ESR, LIPASE, TSH3 #### [facility] [address] Creatinine and Glomerular fi ltration rate.predicted panel (S/P/Bld)Ordered By: Jessica Akhtar on 05-12-2022 Creatinine [Mass/Vol] 0.71 mg/dL 0.44-1.03 [facility] Eosinophils Auto (Bld) [#/Vo l]Ordered By: Jessica Akhtar on 05-12-2022 Eosinophils (Bld) [#/Vol] 0.0 10*3/uL 0.0-0.45 [facility] Eosinophils/100 WBC Auto (Bl d)Ordered By: Jessica Akhtar on 05-12-2022 Eosinophils/100 WBC (Bld) 0.5 % . [facility] Erythrocyte distribution wid th Auto (RBC) [Ratio]Ordered By: Jessica Akhtar on 05-12-2022 Erythrocyte distribution width (RBC) [Ratio] 19.3 % 11.9-15.3 [facility] Estimated glomerular filtrat ion rate (GFR) non- AmericanOrdered By: Jessica Akhtar on 05-12-2022 GFR/1.73 sq M.predicted among non-blacks MDRD (S/P/Bld) [Vol rate/Area] > 60 mL/Min [facility] Hematocrit Auto (Bld) [Volum e fraction]Ordered By: Jessica Akhtar on 05-12-2022 Hematocrit (Bld) [Volume fraction] 29.1 % 34.0-46.4 [facility] Hemoglobin [Mass/volume] in BloodOrdered By: Jessica Akhtar on 05-12-2022 Hemoglobin (Bld) [Mass/Vol] 9.2 g/dL 11.8-15.4 [facility] Laboratory - Hematology and Cell countsOrdered By: Jessica Akhtar on 05-12-2022 Nucleated RBC/100 WBC (Bld) [Ratio] 0.0 % 0-0.5 [facility] Leukocytes [#/volume] in Blo od by Automated countOrdered By: Jessica Akhtar on 05-12-2022 WBC (Bld) [#/Vol] 9.1 10*3/uL 4.5-11.0 [facility] Lymphocytes Auto (Bld) [#/Vo l]Ordered By: Jessica Akhtar on 05-12-2022 Lymphocytes (Bld) [#/Vol] 1.6 10*3/uL 1.00-4.8 [facility] Lymphocytes/100 WBC Auto (Bl d)Ordered By: Jessica Akhtar on 05-12-2022 Lymphocytes/100 WBC (Bld) 18.1 % . [facility] MCH Auto (RBC) [Entitic mass ]Ordered By: Jessica Akhtar on 05-12-2022 MCH (RBC) [Entitic mass] 25.1 pg 24.7-34.3 [facility] MCHC Auto (RBC) [Mass/Vol]Or dered By: Jessica Akhtar on 05-12-2022 MCHC (RBC) [Mass/Vol] 31.6 g/dL 32.0-35.0 [facility] MCV Auto (RBC) [Entitic vol] Ordered By: Jessica Akhtar on 05-12-2022 MCV (RBC) [Entitic vol] 79.6 fL 80-100 [facility] Monocytes Auto (Bld) [#/Vol] Ordered By: Jessica Akhtar on 05-12-2022 Monocytes (Bld) [#/Vol] 0.6 10*3/uL 0.0-0.8 [facility] Monocytes/100 WBC Auto (Bld) Ordered By: Jessica Akhtar on 05-12-2022 Monocytes/100 WBC (Bld) 6.4 % . [facility] Neutrophils Auto (Bld) [#/Vo l]Ordered By: Jessica Akhtar on 05-12-2022 Neutrophils (Bld) [#/Vol] 6.8 10*3/uL 1.8-7.7 [facility] Neutrophils/100 WBC Auto (Bl d)Ordered By: Jessica Akhtar on 05-12-2022 Neutrophils/100 WBC (Bld) 74.6 % . [facility] No Panel InformationOrdered By: Jessica Akhtar on 05-12-2022 Estimated GFR () > 60 mL/Min [facility] Comment on above: GFR estimated refere nce range: According to KDOQI guidelines, <60 ml/min/1.73m2 is sufficient to diagnose a patient with chronic kidney disease. Pharmacy Creatinine Clearance (Chem 91.48 [facility] Platelet mean volume Auto (B ld) [Entitic vol]Ordered By: Jessica Akhtar on 05-12-2022 Platelet mean volume (Bld) [Entitic vol] 7.9 fL 6.3-10.7 [facility] Platelets Auto (Bld) [#/Vol] Ordered By: Jessica Akhtar on 05-12-2022 Platelets (Bld) [#/Vol] 385 10*3/uL 150-450 [facility] RBC Auto (Bld) [#/Vol]Ordere d By: Jessica Akhtar on 05-12-2022 RBC (Bld) [#/Vol] 3.66 10*6/uL 3.60-5.00 [facility] Serum or plasma anion gap de terminationOrdered By: Jessica Akhtar on 05-12-2022 Anion gap [Moles/Vol] 6.7 mmol/L 6.0-15.0 [facility] Serum or plasma calcium mariana urement (mass/volume)Ordered By: Jessica Akhtar on 05-12-2022 Calcium [Mass/Vol] 8.7 mg/dL 8.2-10.2 [facility] Serum or plasma chloride jaqui surement (moles/volume)Ordered By: Jessica Akhtar on 05-12-2022 Chloride [Moles/Vol] 105 mmol/L 95-114 [place] Serum or plasma glucose mariana urement (mass/volume)Ordered By: Jessica Akhtar on 05-12-2022 Glucose [Mass/Vol] 106 mg/dL 70-100 [facility] Comment on above: ADA recommended refe rence rangeRandom Glucose Reference Range is dependent on time and content of last meal. Glucose of more than 200 mg/dL in a nonstressed, ambulatory subject supports the diagnosis of Diabetes Mellitus. Serum or plasma potassium me asurement (moles/volume)Ordered By: Jessica Akhtar on 05-12-2022 Potassium [Moles/Vol] 3.7 mmol/L 3.5-5.1 [facility] Serum or plasma sodium measu rement (moles/volume)Ordered By: Jessica Akhtar on 05-12-2022 Sodium [Moles/Vol] 133 mmol/L 136-146 [facility] Serum or plasma total carbon dioxide measurement (moles/volume)Ordered By: Jessica Akhtar on 05-12-2022 CO2 [Moles/Vol] 25.0 mmol/L 22.0-30.0 [facility] Serum or plasma urea nitroge n measurement (mass/volume)Ordered By: Jessica Akhtar on 05-12-2022 Urea nitrogen [Mass/Vol] 4 mg/dL 9- [facility] Urine culture routineOrdered By: Truman Hu on 05-12-2022 Bacteria identified Cx Nom (U) Escherichia coli (ESBL) [facility] Complete Blood Count Auto Di ffon 05-11-2022 Basophils (Bld) [#/Vol] 0.0 10*3/uL Normal 0.0-0.2 [facility] Comment on above: Result Comment: PERF ORMED BY: [place] [address] PATHOLOGIST CRACK OFF PERSON RADHA GARCIA M.D. Performed By: #### C BC, MG, CMP, ESR, LIPASE, TSH3 #### [facility] [address] [place] [address] Basophils/100 WBC (Bld) 0.6 % Normal . [facility] Comment on above: Performed By: #### C BC, MG, CMP, ESR, LIPASE, TSH3 #### [facility] [address] Eosinophils (Bld) [#/Vol] 0.1 10*3/uL Normal 0.0-0.45 [facility] Comment on above: Performed By: #### C BC, MG, CMP, ESR, LIPASE, TSH3 #### [address] Eosinophils/100 WBC (Bld) 0.9 % Normal . [facility] Comment on above: Performed By: #### C BC, MG, CMP, ESR, LIPASE, TSH3 #### [address] Erythrocyte distribution width (RBC) [Ratio] 19.5 % High 11.9-15.3 [facility] Comment on above: Performed By: #### C BC, MG, CMP, ESR, LIPASE, TSH3 #### [address] Hematocrit (Bld) [Volume fraction] 27.2 % Low 34.0-46.4 [facility] Comment on above: Performed By: #### C BC, MG, CMP, ESR, LIPASE, TSH3 #### [address] Hemoglobin (Bld) [Mass/Vol] 8.8 g/dL Low 11.8-15.4 [facility] Comment on above: Performed By: #### C BC, MG, CMP, ESR, LIPASE, TSH3 #### [address] Lymphocytes (Bld) [#/Vol] 1.7 10*3/uL Normal 1.00-4.8 [facility] Comment on above: Performed By: #### C BC, MG, CMP, ESR, LIPASE, TSH3 #### [address] Lymphocytes/100 WBC (Bld) 21.7 % Normal . [facility] Comment on above: Performed By: #### C BC, MG, CMP, ESR, LIPASE, TSH3 #### [address] MCH (RBC) [Entitic mass] 25.5 pg Normal 24.7-34.3 [facility] Comment on above: Performed By: #### C BC, MG, CMP, ESR, LIPASE, TSH3 #### [address] [address] [place] MCV (RBC) [Entitic vol] 78.9 fL Low 80-100 [facility] Comment on above: Performed By: #### C BC, MG, CMP, ESR, LIPASE, TSH3 #### [address] Mean Corpuscular HGB Conc 32.3 g/dL Normal 32.0-35.0 [facility] Comment on above: Performed By: #### C BC, MG, CMP, ESR, LIPASE, TSH3 #### [address] Monocytes (Bld) [#/Vol] 0.6 10*3/uL Normal 0.0-0.8 [facility] Comment on above: Performed By: #### C BC, MG, CMP, ESR, LIPASE, TSH3 #### [address] Monocytes/100 WBC (Bld) 7.6 % Normal . [facility] Comment on above: Performed By: #### C BC, MG, CMP, ESR, LIPASE, TSH3 #### [address] Neutrophils (Bld) [#/Vol] 5.5 10*3/uL Normal 1.8-7.7 [facility] Comment on above: Performed By: #### C BC, MG, CMP, ESR, LIPASE, TSH3 #### [address] Neutrophils/100 WBC (Bld) 69.2 % Normal . [facility] Comment on above: Performed By: #### C BC, MG, CMP, ESR, LIPASE, TSH3 #### [address] Nucleated RBC/100 WBC (Bld) [Ratio] 0.1 % Normal 0-0.5 [facility] Comment on above: Performed By: #### C BC, MG, CMP, ESR, LIPASE, TSH3 #### [address] Platelet mean volume (Bld) [Entitic vol] 7.8 fL Normal 6.3-10.7 [facility] Comment on above: Performed By: #### C BC, MG, CMP, ESR, LIPASE, TSH3 #### [address] Platelets (Bld) [#/Vol] 350 10*3/uL Normal 150-450 [facility] Comment on above: Performed By: #### C BC, MG, CMP, ESR, LIPASE, TSH3 #### [address] RBC (Bld) [#/Vol] 3.45 10*6/uL Low 3.60-5.00 [facility] Comment on above: Performed By: #### C BC, MG, CMP, ESR, LIPASE, TSH3 #### [address] WBC (Bld) [#/Vol] 8.0 10*3/uL Normal 4.5-11.0 [facility] Comment on above: Performed By: #### C BC, MG, CMP, ESR, LIPASE, TSH3 #### [address] US transvaginalon 05-11-2022 US transvaginal [facility] [place] [address] [place] [address] Ultrasound Report Signed Patient: Raquel Correa MR#: [id number] : 1985 Acct:[id number] Age/Sex: 37 / F ADM Date: 05/09/22 Loc: Room: [address] [place] [address] Type: ADM IN Attending Dr: Jessica Akhtar MD Ordering Provider: Jessica Akhtar MD Date of Service: 05/11/22 US/US transvaginal: cystic adnexal structure on the right measuring 7.[address] ([id number]) US/US pelvic complete: . Copies to: Jessica [...] Gregory Hart M.D.05/11/2022 8:06 PM Dictation Location: [place] [address] Tech: Cyn Self Transcribed By: [facility] 05/11/222005 Dictated By: Gregory Hart DO 05/11/222000 Signed By: 05/11/222005 Normal [facility] Basic Metabolic Panelon 04-27 Anion gap [Moles/Vol] 9.6 mmol/L Normal 6.0-15.0 [facility] Comment on above: Performed By: #### F ER, CBC, BMP ####[facility] [id number] Calcium [Mass/Vol] 8.5 mg/dL Normal 8.2-10.2 [facility] Comment on above: Performed By: #### F ER, CBC, BMP ####[facility] [id number] [place] [id number] [facility] Chloride [Moles/Vol] 107 mmol/L Normal 95-114 [place] Comment on above: Performed By: #### F ER, CBC, BMP ####[facility] [place] [id number] [facility] CO2 [Moles/Vol] 24.1 mmol/L Normal 22.0-30.0 [facility] Comment on above: Performed By: #### F ER, CBC, BMP ####[place] [id number] [place] [id number] [facility] Creatinine [Mass/Vol] 0.74 mg/dL Normal 0.44-1.03 [facility] Comment on above: Performed By: #### F ER, CBC, BMP ####[place] [id number] [facility] Creatinine Clr Calc Pharmacy 87.78 [facility] Comment on above: Performed By: #### F ER, CBC, BMP ####[address] Estimated GFR ( Letty > 60 [facility] Comment on above: Result Comment: GFR estimated reference range: According to KDOQI guidelines, <60 ml/min/1.73m2 is sufficient to diagnose a patient with chronic kidney disease. Performed By: #### F ER, CBC, BMP ####[address] Estimated GFR (Non- Am > 60 [facility] Comment on above: Performed By: #### F ER, CBC, BMP ####[place] [id number] [facility] Glucose [Mass/Vol] 89 mg/dL Normal 70-100 [facility] Comment on above: Result Comment: [place] Glucose Reference Range is dependent on time and content of last meal. Glucose of more than 200 mg/dL in a nonstressed, ambulatory subject supports the diagnosis of Diabetes Mellitus. ADA recommended reference range Performed By: #### F ER, CBC, BMP ####[place] [id number] [facility] Potassium [Moles/Vol] 3.7 mmol/L Normal 3.5-5.1 [facility] Comment on above: Performed By: #### F ER, CBC, BMP ####[place] [id number] [facility] Sodium [Moles/Vol] 137 mmol/L Normal 136-146 [facility] Comment on above: Performed By: #### F ER, CBC, BMP ####[place] [id number] Urea nitrogen [Mass/Vol] 6 mg/dL Low 9-23 [facility] Comment on above: Performed By: #### F ER, CBC, BMP ####[place] [id number] Complete Blood Count Auto Di ffon 05-10-2022 Basophils (Bld) [#/Vol] 0.1 10*3/uL Normal 0.0-0.2 [facility] Comment on above: Result Comment: PERF ORMED BY: [facility] [address] [place] [address] PATHOLOGIST CRACK OFF PERSON RADHA GARCIA M.D. Performed By: #### F ER, CBC, BMP ####[address] Basophils/100 WBC (Bld) 1.3 % Normal . [facility] Comment on above: Performed By: #### F ER, CBC, BMP ####[address] Eosinophils (Bld) [#/Vol] 0.1 10*3/uL Normal 0.0-0.45 [facility] Comment on above: Performed By: #### F ER, CBC, BMP ####[address] Eosinophils/100 WBC (Bld) 0.9 % Normal . [facility] Comment on above: Performed By: #### F ER, CBC, BMP ####[address] Erythrocyte distribution width (RBC) [Ratio] 19.6 % High 11.9-15.3 [facility] Comment on above: Performed By: #### F ER, CBC, BMP ####[address] Hematocrit (Bld) [Volume fraction] 26.8 % Low 34.0-46.4 [facility] Comment on above: Performed By: #### F ER, CBC, BMP ####[address] Hemoglobin (Bld) [Mass/Vol] 8.7 g/dL Low 11.8-15.4 [facility] Comment on above: Performed By: #### F ER, CBC, BMP ####[address] Lymphocytes (Bld) [#/Vol] 1.7 10*3/uL Normal 1.00-4.8 [facility] Comment on above: Performed By: #### F ER, CBC, BMP ####[address] Lymphocytes/100 WBC (Bld) 23.9 % Normal . [facility] Comment on above: Performed By: #### F ER, CBC, BMP ####[address] MCH (RBC) [Entitic mass] 25.5 pg Normal 24.7-34.3 [facility] Comment on above: Performed By: #### F ER, CBC, BMP ####[address] MCV (RBC) [Entitic vol] 78.9 fL Low 80-100 [facility] Comment on above: Performed By: #### F ER, CBC, BMP ####[address] Mean Corpuscular HGB Conc 32.4 g/dL Normal 32.0-35.0 [facility] Comment on above: Performed By: #### F ER, CBC, BMP ####[address] Monocytes (Bld) [#/Vol] 0.4 10*3/uL Normal 0.0-0.8 [facility] Comment on above: Performed By: #### F ER, CBC, BMP ####[place] [address] [place] [address] [facility] Monocytes/100 WBC (Bld) 6.3 % Normal . [facility] Comment on above: Performed By: #### F ER, CBC, BMP ####[place] [address] [place] [address] [facility] Neutrophils (Bld) [#/Vol] 4.8 10*3/uL Normal 1.8-7.7 [facility] Comment on above: Performed By: #### F ER, CBC, BMP ####[address] [address] [facility] Neutrophils/100 WBC (Bld) 67.6 % Normal . [facility] Comment on above: Performed By: #### F ER, CBC, BMP ####[address] [address] [facility] Nucleated RBC/100 WBC (Bld) [Ratio] 0.0 % Normal 0-0.5 [facility] Comment on above: Performed By: #### F ER, CBC, BMP ####[address] [address] [facility] Platelet mean volume (Bld) [Entitic vol] 7.5 fL Normal 6.3-10.7 [facility] Comment on above: Performed By: #### F ER, CBC, BMP ####[address] [address] [facility] Platelets (Bld) [#/Vol] 388 10*3/uL Normal 150-450 [facility] Comment on above: Performed By: #### F ER, CBC, BMP ####[address] [address] [facility] RBC (Bld) [#/Vol] 3.40 10*6/uL Low 3.60-5.00 [facility] Comment on above: Performed By: #### F ER, CBC, BMP ####[address] [address] [facility] WBC (Bld) [#/Vol] 7.0 10*3/uL Normal 4.5-11.0 [facility] Comment on above: Performed By: #### F ER, CBC, BMP ####[facility] [address] [place] [id number] [facility] Ferritinon 05-10-2022 Ferritin [Mass/Vol] 10.7 ng/mL Low 11-306.8 [facility] Comment on above: Result Comment: PERF ORMED BY: [facility] [address] [place] [address] PATHOLOGIST CRACK OFF PERSON RADHA GARCIA M.D. Performed By: #### F ER, CBC, BMP ####[facility] [address] [place] [id number] [facility] Ferritin [Mass/volume] in Se rum or PlasmaOrdered By: Jarad Mcmillan on 05-10-2022 Ferritin [Mass/Vol] 10.7 ng/mL 11-306.8 [facility] Stool Cultureon 05-10-2022 Stool culture Negative for Shiga T oxin 1 Negative for Shiga Toxin 2 -- A negative Shiga Toxin result may occur if the antigen level in the specimen is below the detection limit of the assay. Stool culture results No Salmonella, Shigella, Campy or E. coli 0157:H7 Isolated PERFORMED BY: [facility] [address] [place] [address] PATHOLOGIST CRACK OFF PERSON RADHA GARCIA M.D. Normal [facility] Comment on above: Performed By: #### C BC, MG, CMP, ESR, LIPASE, TSH3 #### [facility] [address] [place] [id number] [facility] Stool bacteria identificatio n by cultureOrdered By: Margarita Gay on 05-10-2022 Bacteria identified Cx Nom (Stl) [facility] Activated partial thrombopla stin time (aPTT) in platelet poor plasma by coagulation aOrdered By: Truman Hu on 05-09-2022 aPTT Coag (PPP) [Time] s 25.1-36.5 [facility] Comment on above: Critical valueresult calledand read backat 1522 on 05/09/22 Albumin [Mass/volume] in Ser um or PlasmaOrdered By: Truman uH on 05-09-2022 Albumin [Mass/Vol] 3.0 g/dL 3.2-5.5 [facility] Automated erythrocytes count in urine sediment (number/area)Ordered By: Truman Hu on 05-09-2022 RBC Auto (Urine sed) [#/Area] 0-1 [HPF] 0-4 [facility] Automated leukocytes count i n urine sediment (number/area)Ordered By: Truman Hu on 05-09-2022 WBC Auto (Urine sed) [#/Area] 50-100 [HPF] 0-4 [facility] Automated urine sediment catalina cium oxalate crystal count by microscopy (number/high powOrdered By: Truman Hu on 05-09-2022 Calcium oxalate crystals LM.HPF (Urine sed) [#/Area] 1+ [HPF] [facility] Bilirubin Test strip Ql (U)O rdered By: Truman Hu on 05-09-2022 Bilirubin Ql (U) Negative Negative [facility] C reactive protein [Mass/vol ume] in Serum or PlasmaOrdered By: Truman Hu on 05-09-2022 CRP [Mass/Vol] < 0.5 mg/dL 0.0-1.0 [facility] C-Reactive Proteinon 022 CRP [Mass/Vol] mg/L Normal 0.0-1.0 [facility] Comment on above: Result Comment: PERF ORMED BY: [place] [address] PATHOLOGIST CRACK OFF PERSON RADHA GARCIA M.D. Performed By: #### C BC, MG, CMP, ESR, LIPASE, TSH3 #### [address] Clostridioides difficile tox in B tcdB gene [Presence] in Stool by SARABJIT with probe deteOrdered By: Truman Hu on 05-09-2022 C. difficile toxin B tcdB gene SARABJIT+probe Ql (Stl) Negative Negative [facility] Comment on above: Testing performed by RT-PCR Clostridium Difficileon 04-27 Clostridium Difficile Negative Normal Negative [facility] Comment on above: Order Comment: > or = to 3 loose/watery stools in the last 24 HRS? Y Is patient on promotility agents or tube feeding? N Result Comment: Test ing performed by RT-PCR PERFORMED BY: [facility] [address] [facility] [place] [address] PATHOLOGIST CRACK OFF PERSON RADHA GARCIA M.D. Performed By: #### C BC, MG, CMP, ESR, LIPASE, TSH3 #### [facility] [address] [place] [address] [place] Color Auto (U)Ordered By: Reagan Hu on 05-09-2022 Color (U) Yellow Yellow [facility] Complete Blood Count Auto Di ffon 05-09-2022 Basophils (Bld) [#/Vol] 0.1 10*3/uL Normal 0.0-0.2 [facility] Comment on above: Result Comment: PERF ORMED BY: [facility] [address] [place] [address] PATHOLOGIST CRACK OFF PERSON RADHA GARCIA M.D. Performed By: #### P TT, CBC, PT, CMP ####[place] [phone] [place] [address] [place] Basophils/100 WBC (Bld) 0.8 % Normal . [facility] Comment on above: Performed By: #### P TT, CBC, PT, CMP ####[facility] [id number] [place] [id number] [place] Eosinophils (Bld) [#/Vol] 0.0 10*3/uL Normal 0.0-0.45 [facility] Comment on above: Performed By: #### P TT, CBC, PT, CMP ####[place] [id number] [place] [address] [place] Eosinophils/100 WBC (Bld) 0.4 % Normal . [facility] Comment on above: Performed By: #### P TT, CBC, PT, CMP ####[address] Erythrocyte distribution width (RBC) [Ratio] 21.2 % High 11.9-15.3 [facility] Comment on above: Performed By: #### P TT, CBC, PT, CMP ####[address] Hematocrit (Bld) [Volume fraction] 22.4 % Low 34.0-46.4 [facility] Comment on above: Performed By: #### P TT, CBC, PT, CMP ####[address] Hemoglobin (Bld) [Mass/Vol] 6.9 g/dL Low 11.8-15.4 [facility] Comment on above: Performed By: #### P TT, CBC, PT, CMP ####[address] Lymphocytes (Bld) [#/Vol] 1.5 10*3/uL Normal 1.00-4.8 [facility] Comment on above: Performed By: #### P TT, CBC, PT, CMP ####[address] Lymphocytes/100 WBC (Bld) 20.1 % Normal . [facility] Comment on above: Performed By: #### P TT, CBC, PT, CMP ####[address] MCH (RBC) [Entitic mass] 24.5 pg Low 24.7-34.3 [facility] Comment on above: Performed By: #### P TT, CBC, PT, CMP ####[address] MCV (RBC) [Entitic vol] 79.7 fL Low 80-100 [facility] Comment on above: Performed By: #### P TT, CBC, PT, CMP ####[address] Mean Corpuscular HGB Conc 30.7 g/dL Low 32.0-35.0 [facility] Comment on above: Performed By: #### P TT, CBC, PT, CMP ####[address] Monocytes (Bld) [#/Vol] 0.4 10*3/uL Normal 0.0-0.8 [facility] Comment on above: Performed By: #### P TT, CBC, PT, CMP ####[address] Monocytes/100 WBC (Bld) 5.1 % Normal . [facility] Comment on above: Performed By: #### P TT, CBC, PT, CMP ####[address] Neutrophils (Bld) [#/Vol] 5.4 10*3/uL Normal 1.8-7.7 [facility] Comment on above: Performed By: #### P TT, CBC, PT, CMP ####[address] Neutrophils/100 WBC (Bld) 73.6 % Normal . [facility] Comment on above: Performed By: #### P TT, CBC, PT, CMP ####[address] Nucleated RBC/100 WBC (Bld) [Ratio] 0.0 % Normal 0-0.5 [facility] Comment on above: Performed By: #### P TT, CBC, PT, CMP ####[address] Platelet mean volume (Bld) [Entitic vol] 7.8 fL Normal 6.3-10.7 [facility] Comment on above: Performed By: #### P TT, CBC, PT, CMP ####[address] Platelets (Bld) [#/Vol] 372 10*3/uL Normal 150-450 [facility] Comment on above: Performed By: #### P TT, CBC, PT, CMP ####[address] RBC (Bld) [#/Vol] 2.81 10*6/uL Low 3.60-5.00 [facility] Comment on above: Performed By: #### P TT, CBC, PT, CMP ####[address] WBC (Bld) [#/Vol] 7.4 10*3/uL Normal 4.5-11.0 [facility] Comment on above: Performed By: #### P TT, CBC, PT, CMP ####[address] Comprehensive Metabolic Pane carlos 05-09-2022 Albumin [Mass/Vol] 3.0 g/dL Low 3.2-5.5 [facility] Comment on above: Performed By: #### P TT, CBC, PT, CMP ####[address] Albumin/Globulin [Mass ratio] 1.3 {ratio} Normal [facility] Comment on above: Performed By: #### P TT, CBC, PT, CMP ####[address] ALP [Catalytic activity/Vol] 55 U/L Normal 32-92 [facility] Comment on above: Performed By: #### P TT, CBC, PT, CMP ####[address] ALT [Catalytic activity/Vol] 22 U/L Normal 10-60 [facility] Comment on above: Performed By: #### P TT, CBC, PT, CMP ####[address] Anion gap [Moles/Vol] 10.0 mmol/L Normal 6.0-15.0 [facility] Comment on above: Performed By: #### P TT, CBC, PT, CMP ####[place] [address] [facility] AST [Catalytic activity/Vol] 22 U/L Normal 10-42 [facility] Comment on above: Performed By: #### P TT, CBC, PT, CMP ####[place] [id number] [facility] Bilirubin [Mass/Vol] 0.5 mg/dL Normal 0.3-1.2 [place] Comment on above: Performed By: #### P TT, CBC, PT, CMP ####[address] Calcium [Mass/Vol] 8.6 mg/dL Normal 8.2-10.2 [facility] Comment on above: Performed By: #### P TT, CBC, PT, CMP ####[address] Chloride [Moles/Vol] 106 mmol/L Normal 95-114 [place] Comment on above: Performed By: #### P TT, CBC, PT, CMP ####[place] [id number] [facility] CO2 [Moles/Vol] 24.4 mmol/L Normal 22.0-30.0 [facility] Comment on above: Performed By: #### P TT, CBC, PT, CMP ####[place] [id number] [facility] Creatinine [Mass/Vol] 0.64 mg/dL Normal 0.44-1.03 [facility] Comment on above: Performed By: #### P TT, CBC, PT, CMP ####[place] [id number] [facility] Creatinine Clr Calc Pharmacy 101.49 [facility] Comment on above: Result Comment: PERF ORMED BY: [facility] [address] [place] [address] PATHOLOGIST CRACK OFF PERSON RADHA GARCIA M.D. Performed By: #### P TT, CBC, PT, CMP ####[address] Estimated GFR ( Letty > 60 Normal [facility] Comment on above: Result Comment: GFR estimated reference range: According to KDOQI guidelines, <60 ml/min/1.73m2 is sufficient to diagnose a patient with chronic kidney disease. Performed By: #### P TT, CBC, PT, CMP ####[address] [address] [facility] Estimated GFR (Non- Am > 60 [facility] Comment on above: Performed By: #### P TT, CBC, PT, CMP ####[address] [address] [facility] Globulin (S) [Mass/Vol] 2.4 g/dL [facility] Comment on above: Performed By: #### P TT, CBC, PT, CMP ####[place] [id number] [facility] Glucose [Mass/Vol] 91 mg/dL Normal 70-100 [facility] Comment on above: Result Comment: [place] Glucose Reference Range is dependent on time and content of last meal. Glucose of more than 200 mg/dL in a nonstressed, ambulatory subject supports the diagnosis of Diabetes Mellitus. ADA recommended reference range Performed By: #### P TT, CBC, PT, CMP ####[place] [id number] [facility] Potassium [Moles/Vol] 3.4 mmol/L Low 3.5-5.1 [facility] Comment on above: Performed By: #### P TT, CBC, PT, CMP ####[place] [id number] [facility] Protein [Mass/Vol] 5.4 g/dL Low 6.1-7.9 [facility] Comment on above: Performed By: #### P TT, CBC, PT, CMP ####[place] [id number] [facility] Sodium [Moles/Vol] 137 mmol/L Normal 136-146 [facility] Comment on above: Performed By: #### P TT, CBC, PT, CMP ####[address] [place] [address] [place] Urea nitrogen [Mass/Vol] 6 mg/dL Low 9- [facility] Comment on above: Performed By: #### P TT, CBC, PT, CMP ####[facility] [id number] [place] [address] Dipstick and Microscopicon 1 07-09-2021 Appearance (U) Cloudy Critically abnormal Clear [facility] Comment on above: Order Comment: Name Collection Type:: Clean-Voided Midstream Performed By: #### C BC, MG, CMP, ESR, LIPASE, TSH3 #### [facility] [address] Bacteria,Urine 4+ High None Seen [facility] Comment on above: Order Comment: Name Collection Type:: Clean-Voided Midstream Performed By: #### C BC, MG, CMP, ESR, LIPASE, TSH3 #### [facility] [address] [place] [address] Bilirubin,Urine Negative Normal Negative [facility] Comment on above: Order Comment: Name Collection Type:: Clean-Voided Midstream Performed By: #### C BC, MG, CMP, ESR, LIPASE, TSH3 #### [facility] [address] [place] [address] Calcium Oxalate Crystals,Urine 1+ Normal [facility] Comment on above: Order Comment: Name Collection Type:: Clean-Voided Midstream Performed By: #### C BC, MG, CMP, ESR, LIPASE, TSH3 #### [facility] [address] [place] [address] Color (U) Yellow Normal Yellow [facility] Comment on above: Order Comment: Name Collection Type:: Clean-Voided Midstream Performed By: #### C BC, MG, CMP, ESR, LIPASE, TSH3 #### [facility] [address] [place] [address] Glucose Ql (U) Normal Normal Normal [facility] Comment on above: Order Comment: Name Collection Type:: Clean-Voided Midstream Performed By: #### C BC, MG, CMP, ESR, LIPASE, TSH3 #### [address] [place] [address] [place] Hyaline Casts,Urine 9-19 High 0-8 [facility] Comment on above: Order Comment: Name Collection Type:: Clean-Voided Midstream Performed By: #### C BC, MG, CMP, ESR, LIPASE, TSH3 #### [facility] [address] [place] [address] Ketones Ql (U) Negative Normal Negative [facility] Comment on above: Order Comment: Name Collection Type:: Clean-Voided Midstream Performed By: #### C BC, MG, CMP, ESR, LIPASE, TSH3 #### [facility] [address] [place] [address] Leukocyte esterase Test strip Ql (U) 3+ High Negative [facility] Comment on above: Order Comment: Name Collection Type:: Clean-Voided Midstream Performed By: #### C BC, MG, CMP, ESR, LIPASE, TSH3 #### [facility] [address] [place] [address] Nitrite,Urine Positive High Negative [facility] Comment on above: Order Comment: Name Collection Type:: Clean-Voided Midstream Performed By: #### C BC, MG, CMP, ESR, LIPASE, TSH3 #### [facility] [address] [place] [address] Occult Blood,Urine Trace High Negative [facility] Comment on above: Order Comment: Name Collection Type:: Clean-Voided Midstream Performed By: #### C BC, MG, CMP, ESR, LIPASE, TSH3 #### [address] Othe Crystals,Urine None Seen Normal [facility] Comment on above: Order Comment: Name Collection Type:: Clean-Voided Midstream Performed By: #### C BC, MG, CMP, ESR, LIPASE, TSH3 #### [address] pH (U) 6.0 [pH] Normal 5.0-9.0 [facility] Comment on above: Order Comment: Name Collection Type:: Clean-Voided Midstream Performed By: #### C BC, MG, CMP, ESR, LIPASE, TSH3 #### [address] Protein,Urine Negative Normal Negative [facility] Comment on above: Order Comment: Name Collection Type:: Clean-Voided Midstream Performed By: #### C BC, MG, CMP, ESR, LIPASE, TSH3 #### [address] RBC LM.HPF (Urine sed) [#/Area] 0 /[HPF] Normal 0-4 [facility] Comment on above: Order Comment: Name Collection Type:: Clean-Voided Midstream Performed By: #### C BC, MG, CMP, ESR, LIPASE, TSH3 #### [address] Specificy [place],Urine 1.014 Normal 1.001-1.03 0 [facility] Comment on above: Order Comment: Name Collection Type:: Clean-Voided Midstream Performed By: #### C BC, MG, CMP, ESR, LIPASE, TSH3 #### [address] Squamous Epithelial Cell,Urine 0-1 Normal 0-2 [facility] Comment on above: Order Comment: Name Collection Type:: Clean-Voided Midstream Performed By: #### C BC, MG, CMP, ESR, LIPASE, TSH3 #### [address] Urobilinogen,Urine Normal Normal Normal [facility] Comment on above: Order Comment: Name Collection Type:: Clean-Voided Midstream Performed By: #### C BC, MG, CMP, ESR, LIPASE, TSH3 #### [address] WBC,Urine 50-100 High 0-4 [facility] Comment on above: Order Comment: Name Collection Type:: Clean-Voided Midstream Performed By: #### C BC, MG, CMP, ESR, LIPASE, TSH3 #### [address] ECG 12 lead ECGon 05-09-2022 ECG 12 lead ECG [facility] [place] [address] [place] [address] Electrocardiograph Report Signed Patient: Raquel Correa MR#: [id number] : 1985 Acct:[id number] Age/Sex: 37 / F ADM Date: 05/09/22 Loc: Room: [address] [place] [address] Type: DIS IN Attending Dr: Jessica Akhtar [...] Inferior leads Confirmed by Westley Greenfield DO ([id number]) on 05/09/2022 2:39:46 PM Referred By: Electronically Signed By:Westley Greenfield DO Transcribed By: MUS Signed By Westley Greenfield DO 2 1439 Normal [facility] Erythrocyte Sedimentation Ra josey 05-09-2022 ESR (Bld) [Velocity] 2 mm/h Normal 0-19 [place] Comment on above: Result Comment: PERF ORMED BY: [place] [address] PATHOLOGIST CRACK OFF PERSON RADHA GARCIA M.D. Performed By: #### C BC, MG, CMP, ESR, LIPASE, TSH3 #### [address] Erythrocyte sedimentation ra te by Photometric methodOrdered By: Truman Hu on 05-09-2022 ESR Photometric method (Bld) [Velocity] 2 mm/hr 0-19 [facility] Globulin Calc (S) [Mass/Vol] Ordered By: Truman Hu on 05-09-2022 Globulin (S) [Mass/Vol] 2.4 g/dL [facility] HCG ( test) [place].rapi d Ql (U)Ordered By: Truman Hu on 05-09-2022 HCG ( test) Ql (U) Negative [facility] HCG,Urineon 05-09-2022 Beta HCG ( test) Ql (U) Negative Normal [facility] Comment on above: Order Comment: Name Collection Type:: Clean-Voided Midstream Result Comment: PERF ORMED BY: [place] [address] PATHOLOGIST CRACK OFF PERSON RADHA GARCIA M.D. Performed By: #### C BC, MG, CMP, ESR, LIPASE, TSH3 #### [place] [id number] [facility] Ketones Auto test strip (U) [Mass/Vol]Ordered By: Truman Hu on 05-09-2022 Ketones (U) [Mass/Vol] Negative Negative [facility] - CoagulationOrde red By: Truman Hu on 05-09-2022 PT Coag (PPP) [Time] 11.0 s 9.0-12.9 [place] [facility] - UrinalysisOrder ed By: Truman Hu on 05-09-2022 Hyaline casts LM Ql (Urine sed) 9-19 [LPF] 0-8 [facility] LeukoReduced RBCon 2 LeukoReduced RBC TRANSFUSED 05/09/22 2103 Normal [facility] Nitrite Test strip Ql (U)Ord ered By: Truman Hu on 05-09-2022 Nitrite Ql (U) Positive Negative [facility] Partial Thromboplastin Timeo n 05-09-2022 aPTT Coag (Bld) [Time] s Off scale low 25.1-36.5 [facility] Comment on above: Result Comment: Crit ical value result called and read back at 1522 on 05/09/22 PERFORMED BY: [address] [address] PATHOLOGIST CRACK OFF PERSON RADHA GARCIA M.D. Performed By: #### P TT, CBC, PT, CMP ####[facility] [id number] Platelet poor plasma interna tional normalized ratio (INR) by coagulation assay (relatOrdered By: Truman Hu on 05-09-2022 INR Coag (PPP) [Relative time] 1.0 {INR} [facility] Comment on above: INR Therapeutic Rang [...] on 05-09-2022 Protein (U) [Mass/Vol] Negative Negative [facility] Protein [Mass/volume] in Ser um or PlasmaOrdered By: Truman Hu on 05-09-2022 Protein [Mass/Vol] 5.4 g/dL 6.1-7.9 [facility] Prothrombin Time INRon 05-09 INR Coag (PPP) [Relative time] 1.0 {INR} Normal [facility] Comment on above: Result Comment: INR [...] By: #### P TT, CBC, PT, CMP ####[place] [id number] [place] [id number] [facility] PT Coag (PPP) [Time] 11.0 s Normal 9.0-12.9 [place] Comment on above: Performed By: #### P TT, CBC, PT, CMP ####[address] Serum or plasma alanine carlos otransferase measurement without P-5'-P (enzymatic activiOrdered By: Truman Hu on 05-09-2022 ALT No additional P-5'-P [Catalytic activity/Vol] 22 U/L 10-60 [facility] Serum or plasma albumin/glob ulin mass ratioOrdered By: Truman Hu on 05-09-2022 Albumin/Globulin [Mass ratio] 1.3 {ratio} [facility] Serum or plasma alkaline belkys sphatase measurement (enzymatic activity/volume)Ordered By: Truman Hu on 05-09-2022 ALP [Catalytic activity/Vol] 55 U/L 32-92 [facility] Serum or plasma aspartate am inotransferase measurement (enzymatic activity/volume)Ordered By: Truman Hu on 05-09-2022 AST [Catalytic activity/Vol] 22 U/L 10-42 [facility] Serum or plasma total biliru bin measurement (mass/volume)Ordered By: Truman Hu on 05-09-2022 Bilirubin [Mass/Vol] 0.5 mg/dL 0.3-1.2 [place] Specific gravity Auto test s trip (U) [Rel density]Ordered By: Truman Hu on 05-09-2022 Specific gravity (U) [Rel density] 1.014 1.001-1.03 0 [facility] Squamous epithelial cells de tection in urine sediment by light microscopyOrdered By: Truman Hu on 05-09-2022 Epithelial cells.squamous LM Ql (Urine sed) 0-1 [HPF] 0-2 [facility] Stool Occult Blood (Guaiac)o n 05-09-2022 Stool Occult Blood (Guaiac) Occult Blood Positive for Occult Blood by Guaiac Methodology -- Reference range = Negative PERFORMED BY: [facility] [address] [place] [address] PATHOLOGIST CRACK OFF PERSON RADHA GARCIA M.D. Normal [facility] Comment on above: Performed By: #### C BC, MG, CMP, ESR, LIPASE, TSH3 #### [facility] [address] [place] [id number] [place] Type and Screenon 05-09-2022 ABO and Rh group Nom (Bld) Blood group O Rh(D) positive Normal [facility] Comment on above: Order Comment: Trans fuse now? Y Number of units to transfuse now? 2 Result Comment: PERF ORMED BY: [facility] [address] [place] [address] PATHOLOGIST CRACK OFF PERSON RADHA GARCIA M.D. Urine Cultureon 05-09-2022 Bacteria identified Cx Nom (U) Results called at 0717 on 05/12/22 ORGANISM: Escherichia coli (ESBL) (O:ESCCOLESBL) [place] Count >100,000 Aerobic DIVYA Charge (NUC86) SUSCEPTIBILITY [...] RESISTANT TO ALL B-LACTAM DRUGS. PERFORMED BY: [facility] [address] [place] [address] PATHOLOGIST CRACK OFF PERSON RADHA GARCIA M.D. Normal [facility] Comment on above: Performed By: #### C BC, MG, CMP, ESR, LIPASE, TSH3 #### [facility] [address] Urine bacteria detection by automated methodOrdered By: Truman Hu on 05-09-2022 Bacteria Auto Ql (U) 4+ None Seen [place] Urine clarity by refractomet ry automatedOrdered By: Truman Hu on 05-09-2022 Clarity Refractometry automated (U) Cloudy Clear [facility] Urine culture routineOrdered By: Truman Hu on 05-09-2022 Bacteria identified Cx Nom (U) Escherichia coli (ESBL) [facility] Urine glucose measurement by automated test strip (mass/volume)Ordered By: Truman Hu on 05-09-2022 Glucose Auto test strip (U) [Mass/Vol] Normal mg/dL Normal [facility] Urine hemoglobin detection b y automated test stripOrdered By: Truman Hu on 05-09-2022 Hemoglobin Auto test strip Ql (U) Trace Negative [facility] Urine leukocyte esterase det ection by automated test stripOrdered By: Truman Hu on 05-09-2022 Leukocyte esterase Auto test strip Ql (U) 3+ Negative [facility] Urine sediment crystal ident ification by light microscopyOrdered By: Truman Hu on 05-09-2022 Crystals LM Nom (Urine sed) None seen [HPF] [facility] Urobilinogen Auto test strip (U) [Mass/Vol]Ordered By: Truman Hu on 05-09-2022 Urobilinogen (U) [Mass/Vol] Normal mg/dL Normal [facility] pH Auto test strip (U)Ordere d By: Truman Hu on 05-09-2022 pH (U) 6.0 [pH] 5.0-9.0 [facility] CBC AUTO DIFFon 04-16-2022 BASO # 0.0 103/ul Normal 0.0-0.1 [facility] Comment on above: Performed By: #### P T, PTT #### [facility] [address] [place] [address] [address] Tori Thomas Basophils/100 WBC (Bld) 0.7 % Normal 0.2-2.0 [facility] Comment on above: Performed By: #### P T, PTT #### [facility] [address] [place] [address] Dr. Tori Thomas EO # 0.1 103/ul Normal 0.0-0.7 [facility] Comment on above: Performed By: #### P T, PTT #### [facility] [address] [place] [address] Dr. Tori Thomas Eosinophils/100 WBC (Bld) 0.8 % Critically low 0.9-7.0 [facility] Comment on above: Performed By: #### P T, PTT #### [facility] [address] [place] [address] Dr. Tori Thomas Erythrocyte distribution width (RBC) [Ratio] 14.9 % Normal 11.0-15.0 [facility] Comment on above: Performed By: #### P T, PTT #### [facility] [address] [place] [address] Dr. Tori Thomas Hematocrit (Bld) [Volume fraction] 29.8 % Critically low 36.0-48.0 [facility] Comment on above: Performed By: #### P T, PTT #### [facility] [address] [place] [address] Dr. Tori Thomas Hemoglobin (Bld) [Mass/Vol] 8.8 g/dL Critically low 12.0-16.0 [facility] Comment on above: Performed By: #### P T, PTT #### [facility] [address] [place] [address] Dr. Tori Thomas IG # 0.01 10e3/ul Normal 0.00-0.03 [facility] Comment on above: Performed By: #### P T, PTT #### [facility] [address] [place] [address] Dr. Tori Thomas IG % 0.2 % Normal 0.0-0.5 [facility] Comment on above: Performed By: #### P T, PTT #### [facility] [address] [place] [address] Dr. Tori Thomas LYMPH # 1.3 103/ul Normal 1.2-3.8 [facility] Comment on above: Performed By: #### P T, PTT #### [facility] [address] [place] [address] Dr. Tori Thomas Lymphocytes/100 WBC (Bld) 21.1 % Normal 20.5-60.0 [facility] Comment on above: Performed By: #### P T, PTT #### [facility] [address] [place] [address] Dr. Tori Thomas MANUAL DIFF REQ NO Normal [facility] Comment on above: Performed By: #### P T, PTT #### [facility] [address] [place] [address] Dr. Tori Thomas MCH (RBC) [Entitic mass] 24.9 pg Critically low 26.7-34.0 [facility] Comment on above: Performed By: #### P T, PTT #### [facility] [address] [place] [address] Dr. Tori Thomas MCHC (RBC) [Mass/Vol] 29.5 g/dL Critically low 29.9-35.2 [facility] Comment on above: Performed By: #### P T, PTT #### [facility] [address] [place] [address] Dr. Tori Thomas MCV (RBC) [Entitic vol] 84.4 fL Normal 81.0-99.0 [facility] Comment on above: Performed By: #### P T, PTT #### [facility] [address] [place] [address] Dr. Tori Thomas MONO # 0.4 103/ul Normal 0.3-0.8 [facility] Comment on above: Performed By: #### P T, PTT #### [facility] [address] [place] [address] Dr. Tori Thomas Monocytes/100 WBC (Bld) 6.6 % Normal 1.7-12.0 [facility] Comment on above: Performed By: #### P T, PTT #### [facility] [address] [place] [address] [address] Tori Thomas NEUT # 4.2 103/ul Normal 1.4-6.5 [facility] Comment on above: Performed By: #### P T, PTT #### [facility] [address] [address] [address] Tori Thomas Neutrophils/100 WBC (Bld) 70.6 % Normal 43.0-75.0 [facility] Comment on above: Performed By: #### P T, PTT #### [facility] [address] [address] [address] Tori Thomas Platelet mean volume (Bld) [Entitic vol] 9.0 fL Critically low 9.5-13.5 [facility] Comment on above: Performed By: #### P T, PTT #### [facility] [address] [place] [address] Dr. Tori Thomas PLT 337 103/ul Normal 150-450 [facility] Comment on above: Performed By: #### P T, PTT #### [facility] [address] [place] [address] Dr. Tori Thomas RBC 3.53 106/ul Critically low 4.20-5.40 [facility] Comment on above: Performed By: #### P T, PTT #### [facility] [address] [place] [address] Dr. Tori Thomas WBC 5.9 103/ul Normal 4.0-11.0 [facility] Comment on above: Performed By: #### P T, PTT #### [facility] [address] [place] [address] Dr. Tori Thomas FERRITINon 04-16-2022 Ferritin [Mass/Vol] 23.0 ng/mL Normal 6.2-137.0 [facility] Comment on above: Performed By: #### U AMIC #### [facility] [address] [place] [address] Dr. Tori Thomas IRONon 04-16-2022 Iron [Mass/Vol] 17.0 ug/dL Critically low 50.0-170.0 [facility] Comment on above: Performed By: #### U AMIC #### [facility] [address] [address] [address] Tori Thomas PROF 14(COMP METB)on 022 Albumin [Mass/Vol] 3.6 g/dL Normal 3.4-5.0 [facility] Comment on above: Performed By: #### C MP #### [facility] [address] [place] [address] Dr. Tori Thomas Albumin/Globulin [Mass ratio] 1.0 {ratio} Normal [facility] Comment on above: Performed By: #### C MP #### [facility] [address] [place] [address] Dr. Tori Thomas ALP [Catalytic activity/Vol] 72 U/L Normal 46-116 [facility] Comment on above: Performed By: #### C MP #### [facility] [address] [place] [address] Dr. Tori Thomas ALT [Catalytic activity/Vol] 19 U/L Normal 14-59 [facility] Comment on above: Performed By: #### C MP #### [facility] [address] [place] [address] Dr. Tori Thomas Anion gap [Moles/Vol] 14.5 mmol/L Normal [facility] Comment on above: Performed By: #### C MP #### [facility] [address] [place] [address] Dr. Tori Thomas AST [Catalytic activity/Vol] 15 U/L Normal 15-37 [facility] Comment on above: Performed By: #### C MP #### [facility] [address] [place] [address] Dr. Tori Thomas Bilirubin [Mass/Vol] 0.3 mg/dL Normal 0.2-1.0 [facility] Comment on above: Performed By: #### C MP #### [facility] [address] [place] [address] Dr. Tori Thomas Calcium [Mass/Vol] 9.0 mg/dL Normal 8.5-10.1 [facility] Comment on above: Performed By: #### C MP #### [facility] [address] [address] [address] Tori Thomas Chloride [Moles/Vol] 104 mmol/L Normal 98-107 [facility] Comment on above: Performed By: #### C MP #### [facility] [address] [address] [address] Tori Thomas CO2 [Moles/Vol] 24.2 mmol/L Normal 21.0-32.0 [facility] Comment on above: Performed By: #### C MP #### [facility] [address] [place] [address] Dr. Tori Thomas Creatinine [Mass/Vol] 0.77 mg/dL Normal 0.55-1.02 [facility] Comment on above: Performed By: #### C MP #### [facility] [address] [place] [address] Dr. Tori Thomas EGFR-AF KYRGYZ >60 Normal >=60 [facility] Comment on above: Performed By: #### C MP #### [facility] [address] [place] [address] Dr. Tori Thomas EGFR-NON AF KYRGYZ >60 Normal >=60 [facility] Comment on above: Performed By: #### C MP #### [facility] [address] [place] [address] Dr. Tori Thomas Globulin (S) [Mass/Vol] 3.5 g/dL Normal [facility] Comment on above: Performed By: #### C MP #### [facility] [address] [place] [address] Dr. Tori Thomas Glucose [Mass/Vol] 112 mg/dL Critically high 74-106 T [facility] Comment on above: Performed By: #### C MP #### [facility] [address] [place] [address] Dr. Tori Thomas Potassium [Moles/Vol] 3.7 mmol/L Normal 3.5-5.1 [facility] Comment on above: Performed By: #### C MP #### [facility] [address] [place] [address] Dr. Tori Thomas Protein [Mass/Vol] 7.1 g/dL Normal 6.4-8.2 [facility] Comment on above: Performed By: #### C MP #### [facility] [address] [address] [address] Tori Thomas Sodium [Moles/Vol] 139 mmol/L Normal 136-145 [facility] Comment on above: Performed By: #### C MP #### [facility] [address] [address] [address] Tori Thomas Urea nitrogen [Mass/Vol] 7.0 mg/dL Normal 7.0-18.0 [facility] Comment on above: Performed By: #### C MP #### [facility] [address] [address] [address] Tori Thomas Urea nitrogen/Creatinine [Mass ratio] 9.1 mg/mg Normal [facility] Comment on above: Performed By: #### C MP #### [facility] [address] [address] [address] Tori Thomas Basic Metabolic Panelon 10-0 Anion gap [Moles/Vol] 10.3 mmol/L Normal 6.0-15.0 [facility] Comment on above: Performed By: #### C BC, MG, CMP, ESR, LIPASE, TSH3 #### [facility] [address] [place] [address] [place] Calcium [Mass/Vol] 8.9 mg/dL Normal 8.2-10.2 [facility] Comment on above: Performed By: #### C BC, MG, CMP, ESR, LIPASE, TSH3 #### [facility] [address] [place] [address] [place] Chloride [Moles/Vol] 107 mmol/L Normal 95-114 [place] Comment on above: Performed By: #### C BC, MG, CMP, ESR, LIPASE, TSH3 #### [facility] [address] [place] [address] [place] CO2 [Moles/Vol] 23.8 mmol/L Normal 22.0-30.0 [facility] Comment on above: Performed By: #### C BC, MG, CMP, ESR, LIPASE, TSH3 #### [address] Creatinine [Mass/Vol] 0.71 mg/dL Normal 0.44-1.03 [facility] Comment on above: Performed By: #### C BC, MG, CMP, ESR, LIPASE, TSH3 #### [address] Creatinine Clr Calc Pharmacy 87.47 [facility] Comment on above: Result Comment: PERF ORMED BY: [place] [address] PATHOLOGIST CRACK OFF PERSON RADHA GARCIA M.D. Performed By: #### C BC, MG, CMP, ESR, LIPASE, TSH3 #### [address] Estimated GFR ( Letty > 60 [facility] Comment on above: Result Comment: GFR estimated reference range: According to KDOQI guidelines, <60 ml/min/1.73m2 is sufficient to diagnose a patient with chronic kidney disease. Performed By: #### C BC, MG, CMP, ESR, LIPASE, TSH3 #### [address] Estimated GFR (Non- Am > 60 [facility] Comment on above: Performed By: #### C BC, MG, CMP, ESR, LIPASE, TSH3 #### [address] Glucose [Mass/Vol] 91 mg/dL Normal 70-100 [facility] Comment on above: Result Comment: [place] om Glucose Reference Range is dependent on time and content of last meal. Glucose of more than 200 mg/dL in a nonstressed, ambulatory subject supports the diagnosis of Diabetes Mellitus. ADA recommended reference range Performed By: #### C BC, MG, CMP, ESR, LIPASE, TSH3 #### [address] Potassium [Moles/Vol] 4.1 mmol/L Normal 3.5-5.1 [facility] Comment on above: Performed By: #### C BC, MG, CMP, ESR, LIPASE, TSH3 #### [facility] [address] Sodium [Moles/Vol] 137 mmol/L Normal 136-146 [facility] Comment on above: Performed By: #### C BC, MG, CMP, ESR, LIPASE, TSH3 #### [facility] [address] Urea nitrogen [Mass/Vol] 3 mg/dL Low 9-23 [facility] Comment on above: Performed By: #### C BC, MG, CMP, ESR, LIPASE, TSH3 #### [facility] [address] Basophils Auto (Bld) [#/Vol] Ordered By: Jessica Akhtar on 04-02-2022 Basophils (Bld) [#/Vol] 0.0 10*3/uL 0.0-0.2 [facility] Basophils/100 WBC Auto (Bld) Ordered By: Jessica Akhtar on 04-02-2022 Basophils/100 WBC (Bld) 0.3 % . [facility] Blood hemoglobin measurement (mass/volume)Ordered By: Jessica Akhtar on 04-02-2022 Hemoglobin (Bld) [Mass/Vol] 8.8 g/dL 11.8-15.4 [facility] Blood leukocytes automated c ount (number/volume)Ordered By: Jessica Akhtar on 04-02-2022 WBC (Bld) [#/Vol] 7.6 10*3/uL 4.5-11.0 [facility] Complete Blood Count Auto Di ffon 04-02-2022 Basophils (Bld) [#/Vol] 0.0 10*3/uL Normal 0.0-0.2 [facility] Comment on above: Result Comment: PERF ORMED BY: [place] [address] PATHOLOGIST CRACK OFF PERSON RADHA GARCIA M.D. Performed By: #### C BC, MG, CMP, ESR, LIPASE, TSH3 #### [address] Basophils/100 WBC (Bld) 0.3 % Normal . [facility] Comment on above: Performed By: #### C BC, MG, CMP, ESR, LIPASE, TSH3 #### [address] Eosinophils (Bld) [#/Vol] 0.1 10*3/uL Normal 0.0-0.45 [facility] Comment on above: Performed By: #### C BC, MG, CMP, ESR, LIPASE, TSH3 #### [address] Eosinophils/100 WBC (Bld) 1.3 % Normal . [facility] Comment on above: Performed By: #### C BC, MG, CMP, ESR, LIPASE, TSH3 #### [address] Erythrocyte distribution width (RBC) [Ratio] 15.0 % Normal 11.9-15.3 [facility] Comment on above: Performed By: #### C BC, MG, CMP, ESR, LIPASE, TSH3 #### [address] Hematocrit (Bld) [Volume fraction] 26.7 % Low 34.0-46.4 [facility] Comment on above: Performed By: #### C BC, MG, CMP, ESR, LIPASE, TSH3 #### [address] Hemoglobin (Bld) [Mass/Vol] 8.8 g/dL Low 11.8-15.4 [facility] Comment on above: Performed By: #### C BC, MG, CMP, ESR, LIPASE, TSH3 #### [address] Lymphocytes (Bld) [#/Vol] 1.8 10*3/uL Normal 1.00-4.8 [facility] Comment on above: Performed By: #### C BC, MG, CMP, ESR, LIPASE, TSH3 #### [address] Lymphocytes/100 WBC (Bld) 23.8 % Normal . [facility] Comment on above: Performed By: #### C BC, MG, CMP, ESR, LIPASE, TSH3 #### [address] MCH (RBC) [Entitic mass] 28.5 pg Normal 24.7-34.3 [facility] Comment on above: Performed By: #### C BC, MG, CMP, ESR, LIPASE, TSH3 #### [address] MCV (RBC) [Entitic vol] 86.9 fL Normal 80-100 [facility] Comment on above: Performed By: #### C BC, MG, CMP, ESR, LIPASE, TSH3 #### [address] Mean Corpuscular HGB Conc 32.8 g/dL Normal 32.0-35.0 [facility] Comment on above: Performed By: #### C BC, MG, CMP, ESR, LIPASE, TSH3 #### [address] Monocytes (Bld) [#/Vol] 0.5 10*3/uL Normal 0.0-0.8 [facility] Comment on above: Performed By: #### C BC, MG, CMP, ESR, LIPASE, TSH3 #### [address] Monocytes/100 WBC (Bld) 6.0 % Normal . [facility] Comment on above: Performed By: #### C BC, MG, CMP, ESR, LIPASE, TSH3 #### [address] Neutrophils (Bld) [#/Vol] 5.2 10*3/uL Normal 1.8-7.7 [facility] Comment on above: Performed By: #### C BC, MG, CMP, ESR, LIPASE, TSH3 #### [address] Neutrophils/100 WBC (Bld) 68.6 % Normal . [facility] Comment on above: Performed By: #### C BC, MG, CMP, ESR, LIPASE, TSH3 #### [address] Nucleated RBC/100 WBC (Bld) [Ratio] 0.1 % Normal 0-0.5 [facility] Comment on above: Performed By: #### C BC, MG, CMP, ESR, LIPASE, TSH3 #### [address] Platelet mean volume (Bld) [Entitic vol] 7.2 fL Normal 6.3-10.7 [facility] Comment on above: Performed By: #### C BC, MG, CMP, ESR, LIPASE, TSH3 #### [address] Platelets (Bld) [#/Vol] 432 10*3/uL Normal 150-450 [facility] Comment on above: Performed By: #### C BC, MG, CMP, ESR, LIPASE, TSH3 #### [address] RBC (Bld) [#/Vol] 3.08 10*6/uL Low 3.60-5.00 [facility] Comment on above: Performed By: #### C BC, MG, CMP, ESR, LIPASE, TSH3 #### [address] WBC (Bld) [#/Vol] 7.6 10*3/uL Normal 4.5-11.0 [facility] Comment on above: Performed By: #### C BC, MG, CMP, ESR, LIPASE, TSH3 #### [address] Creatinine and Glomerular fi ltration rate.predicted panel (S/P/Bld)Ordered By: Jessica Akhtar on 04-02-2022 Creatinine [Mass/Vol] 0.71 mg/dL 0.44-1.03 [facility] Eosinophils Auto (Bld) [#/Vo l]Ordered By: Jessica Akhtar on 04-02-2022 Eosinophils (Bld) [#/Vol] 0.1 10*3/uL 0.0-0.45 [facility] Eosinophils/100 WBC Auto (Bl d)Ordered By: Jessica Akhtar on 04-02-2022 Eosinophils/100 WBC (Bld) 1.3 % . [facility] Erythrocyte distribution wid th Auto (RBC) [Ratio]Ordered By: Jessica Akhtar on 04-02-2022 Erythrocyte distribution width (RBC) [Ratio] 15.0 % 11.9-15.3 [facility] Estimated glomerular filtrat ion rate (GFR) non- AmericanOrdered By: Jessica Akhtar on 04-02-2022 GFR/1.73 sq M.predicted among non-blacks MDRD (S/P/Bld) [Vol rate/Area] > 60 mL/Min [facility] Hematocrit Auto (Bld) [Volum e fraction]Ordered By: Jessica Akhtar on 04-02-2022 Hematocrit (Bld) [Volume fraction] 26.7 % 34.0-46.4 [facility] Laboratory - Hematology and Cell countsOrdered By: Jessica Akhtar on 04-02-2022 Nucleated RBC/100 WBC (Bld) [Ratio] 0.1 % 0-0.5 [facility] Lymphocytes Auto (Bld) [#/Vo l]Ordered By: Jessica Akhtar on 04-02-2022 Lymphocytes (Bld) [#/Vol] 1.8 10*3/uL 1.00-4.8 [facility] Lymphocytes/100 WBC Auto (Bl d)Ordered By: Jessica Akhtar on 04-02-2022 Lymphocytes/100 WBC (Bld) 23.8 % . [facility] MCH Auto (RBC) [Entitic mass ]Ordered By: Jessica Akhtar on 04-02-2022 MCH (RBC) [Entitic mass] 28.5 pg 24.7-34.3 [facility] MCHC Auto (RBC) [Mass/Vol]Or dered By: Jessica Akhtar on 04-02-2022 MCHC (RBC) [Mass/Vol] 32.8 g/dL 32.0-35.0 [facility] MCV Auto (RBC) [Entitic vol] Ordered By: Jessica Akhtar on 04-02-2022 MCV (RBC) [Entitic vol] 86.9 fL 80-100 [facility] Monocytes Auto (Bld) [#/Vol] Ordered By: Jessica Akhtar on 04-02-2022 Monocytes (Bld) [#/Vol] 0.5 10*3/uL 0.0-0.8 [facility] Monocytes/100 WBC Auto (Bld) Ordered By: Jessica Akhtar on 04-02-2022 Monocytes/100 WBC (Bld) 6.0 % . [facility] Neutrophils Auto (Bld) [#/Vo l]Ordered By: Jessica Akhtar on 04-02-2022 Neutrophils (Bld) [#/Vol] 5.2 10*3/uL 1.8-7.7 [facility] Neutrophils/100 WBC Auto (Bl d)Ordered By: eJssica Akhtar on 04-02-2022 Neutrophils/100 WBC (Bld) 68.6 % . [facility] No Panel InformationOrdered By: Jessica Akhtar on 04-02-2022 Estimated GFR () > 60 mL/Min [facility] Comment on above: GFR estimated refere nce range: According to KDOQI guidelines, <60 ml/min/1.73m2 is sufficient to diagnose a patient with chronic kidney disease. Pharmacy Creatinine Clearance (Chem 87.47 [facility] Platelet mean volume Auto (B ld) [Entitic vol]Ordered By: Jessica Akhtar on 04-02-2022 Platelet mean volume (Bld) [Entitic vol] 7.2 fL 6.3-10.7 [facility] Platelets Auto (Bld) [#/Vol] Ordered By: Jessica Akhtar on 04-02-2022 Platelets (Bld) [#/Vol] 432 10*3/uL 150-450 [facility] RBC Auto (Bld) [#/Vol]Ordere d By: Jessica Akhtar on 04-02-2022 RBC (Bld) [#/Vol] 3.08 10*6/uL 3.60-5.00 [facility] Serum or plasma anion gap de terminationOrdered By: Jessica Akhtar on 04-02-2022 Anion gap [Moles/Vol] 10.3 mmol/L 6.0-15.0 [facility] Serum or plasma calcium mariana urement (mass/volume)Ordered By: Jessica Akhtar on 04-02-2022 Calcium [Mass/Vol] 8.9 mg/dL 8.2-10.2 [facility] Serum or plasma chloride jaqui surement (moles/volume)Ordered By: Jessica Akhtar on 04-02-2022 Chloride [Moles/Vol] 107 mmol/L 95-114 [place] Serum or plasma glucose mariana urement (mass/volume)Ordered By: Jessica Akhtar on 04-02-2022 Glucose [Mass/Vol] 91 mg/dL 70-100 [facility] Comment on above: ADA recommended refe rence rangeRandom Glucose Reference Range is dependent on time and content of last meal. Glucose of more than 200 mg/dL in a nonstressed, ambulatory subject supports the diagnosis of Diabetes Mellitus. Serum or plasma potassium me asurement (moles/volume)Ordered By: Jessica Akhtar on 04-02-2022 Potassium [Moles/Vol] 4.1 mmol/L 3.5-5.1 [facility] Serum or plasma sodium measu rement (moles/volume)Ordered By: Jessica Akhtar on 04-02-2022 Sodium [Moles/Vol] 137 mmol/L 136-146 [facility] Serum or plasma total carbon dioxide measurement (moles/volume)Ordered By: Jessica Akhtar on 04-02-2022 CO2 [Moles/Vol] 23.8 mmol/L 22.0-30.0 [facility] Serum or plasma urea nitroge n measurement (mass/volume)Ordered By: Jessica Akhtar on 04-02-2022 Urea nitrogen [Mass/Vol] 3 mg/dL 03-19 [facility] Urine culture routineOrdered By: Jessica Akhtar on 04-02-2022 Bacteria identified Cx Nom (U) Escherichia coli (ESBL) [facility] Albumin [Mass/volume] in Ser um or PlasmaOrdered By: Jessica Akhtar on 04-01-2022 Albumin [Mass/Vol] 2.8 g/dL 3.2-5.5 [facility] Complete Blood Count Auto Di ffon 04-01-2022 Basophils (Bld) [#/Vol] 0.0 10*3/uL Normal 0.0-0.2 [facility] Comment on above: Result Comment: PERF ORMED BY: [place] [address] PATHOLOGIST CRACK OFF PERSON RADHA GARCIA M.D. Performed By: #### C BC, MG, CMP, ESR, LIPASE, TSH3 #### [address] Basophils/100 WBC (Bld) 0.3 % Normal . [facility] Comment on above: Performed By: #### C BC, MG, CMP, ESR, LIPASE, TSH3 #### [address] Eosinophils (Bld) [#/Vol] 0.1 10*3/uL Normal 0.0-0.45 [facility] Comment on above: Performed By: #### C BC, MG, CMP, ESR, LIPASE, TSH3 #### [address] Eosinophils/100 WBC (Bld) 1.3 % Normal . [facility] Comment on above: Performed By: #### C BC, MG, CMP, ESR, LIPASE, TSH3 #### [address] Erythrocyte distribution width (RBC) [Ratio] 15.1 % Normal 11.9-15.3 [facility] Comment on above: Performed By: #### C BC, MG, CMP, ESR, LIPASE, TSH3 #### [address] Hematocrit (Bld) [Volume fraction] 23.6 % Low 34.0-46.4 [facility] Comment on above: Performed By: #### C BC, MG, CMP, ESR, LIPASE, TSH3 #### [address] Hemoglobin (Bld) [Mass/Vol] 7.8 g/dL Low 11.8-15.4 [facility] Comment on above: Performed By: #### C BC, MG, CMP, ESR, LIPASE, TSH3 #### [address] Lymphocytes (Bld) [#/Vol] 2.2 10*3/uL Normal 1.00-4.8 [facility] Comment on above: Performed By: #### C BC, MG, CMP, ESR, LIPASE, TSH3 #### [address] Lymphocytes/100 WBC (Bld) 32.6 % Normal . [facility] Comment on above: Performed By: #### C BC, MG, CMP, ESR, LIPASE, TSH3 #### [address] MCH (RBC) [Entitic mass] 29.0 pg Normal 24.7-34.3 [facility] Comment on above: Performed By: #### C BC, MG, CMP, ESR, LIPASE, TSH3 #### [address] MCV (RBC) [Entitic vol] 87.7 fL Normal 80-100 [facility] Comment on above: Performed By: #### C BC, MG, CMP, ESR, LIPASE, TSH3 #### [address] Mean Corpuscular HGB Conc 33.1 g/dL Normal 32.0-35.0 [facility] Comment on above: Performed By: #### C BC, MG, CMP, ESR, LIPASE, TSH3 #### [address] [address] [place] Monocytes (Bld) [#/Vol] 0.4 10*3/uL Normal 0.0-0.8 [facility] Comment on above: Performed By: #### C BC, MG, CMP, ESR, LIPASE, TSH3 #### [address] Monocytes/100 WBC (Bld) 6.1 % Normal . [facility] Comment on above: Performed By: #### C BC, MG, CMP, ESR, LIPASE, TSH3 #### [address] Neutrophils (Bld) [#/Vol] 4.0 10*3/uL Normal 1.8-7.7 [facility] Comment on above: Performed By: #### C BC, MG, CMP, ESR, LIPASE, TSH3 #### [address] Neutrophils/100 WBC (Bld) 59.7 % Normal . [facility] Comment on above: Performed By: #### C BC, MG, CMP, ESR, LIPASE, TSH3 #### [address] Nucleated RBC/100 WBC (Bld) [Ratio] 0.1 % Normal 0-0.5 [facility] Comment on above: Performed By: #### C BC, MG, CMP, ESR, LIPASE, TSH3 #### [address] Platelet mean volume (Bld) [Entitic vol] 7.4 fL Normal 6.3-10.7 [facility] Comment on above: Performed By: #### C BC, MG, CMP, ESR, LIPASE, TSH3 #### [place] [address] [place] Platelets (Bld) [#/Vol] 403 10*3/uL Normal 150-450 [facility] Comment on above: Performed By: #### C BC, MG, CMP, ESR, LIPASE, TSH3 #### [address] RBC (Bld) [#/Vol] 2.69 10*6/uL Low 3.60-5.00 [facility] Comment on above: Performed By: #### C BC, MG, CMP, ESR, LIPASE, TSH3 #### [address] WBC (Bld) [#/Vol] 6.6 10*3/uL Normal 4.5-11.0 [facility] Comment on above: Performed By: #### C BC, MG, CMP, ESR, LIPASE, TSH3 #### [facility] [address] [place] [address] Comprehensive Metabolic Pane carlos 04-01-2022 Albumin [Mass/Vol] 2.8 g/dL Low 3.2-5.5 [facility] Comment on above: Performed By: #### C BC, MG, CMP, ESR, LIPASE, TSH3 #### [address] Albumin/Globulin [Mass ratio] 1.4 {ratio} Normal [facility] Comment on above: Performed By: #### C BC, MG, CMP, ESR, LIPASE, TSH3 #### [address] ALP [Catalytic activity/Vol] 47 U/L Normal 32-92 [facility] Comment on above: Performed By: #### C BC, MG, CMP, ESR, LIPASE, TSH3 #### [address] ALT [Catalytic activity/Vol] 18 U/L Normal 10-60 [facility] Comment on above: Performed By: #### C BC, MG, CMP, ESR, LIPASE, TSH3 #### [address] Anion gap [Moles/Vol] 9.4 mmol/L Normal 6.0-15.0 [facility] Comment on above: Performed By: #### C BC, MG, CMP, ESR, LIPASE, TSH3 #### [address] [place] [address] [place] AST [Catalytic activity/Vol] 18 U/L Normal 10-42 [facility] Comment on above: Performed By: #### C BC, MG, CMP, ESR, LIPASE, TSH3 #### [facility] [address] Bilirubin [Mass/Vol] 0.4 mg/dL Normal 0.3-1.2 [place] Comment on above: Performed By: #### C BC, MG, CMP, ESR, LIPASE, TSH3 #### [facility] [address] Calcium [Mass/Vol] 8.3 mg/dL Normal 8.2-10.2 [facility] Comment on above: Performed By: #### C BC, MG, CMP, ESR, LIPASE, TSH3 #### [address] Chloride [Moles/Vol] 108 mmol/L Normal 95-114 [place] Comment on above: Performed By: #### C BC, MG, CMP, ESR, LIPASE, TSH3 #### [facility] [address] [place] [address] CO2 [Moles/Vol] 24.6 mmol/L Normal 22.0-30.0 [facility] Comment on above: Performed By: #### C BC, MG, CMP, ESR, LIPASE, TSH3 #### [facility] [address] [place] [address] Creatinine [Mass/Vol] 0.74 mg/dL Normal 0.44-1.03 [facility] Comment on above: Performed By: #### C BC, MG, CMP, ESR, LIPASE, TSH3 #### [facility] [address] [place] [address] [place] Creatinine Clr Calc Pharmacy 83.92 Normal [facility] Comment on above: Result Comment: PERF ORMED BY: [place] [address] PATHOLOGIST CRACK OFF PERSON RADHA GARCIA M.D. Performed By: #### C BC, MG, CMP, ESR, LIPASE, TSH3 #### [address] Estimated GFR ( Letty > 60 [facility] Comment on above: Result Comment: GFR estimated reference range: According to KDOQI guidelines, <60 ml/min/1.73m2 is sufficient to diagnose a patient with chronic kidney disease. Performed By: #### C BC, MG, CMP, ESR, LIPASE, TSH3 #### [address] Estimated GFR (Non- Am > 60 [facility] Comment on above: Performed By: #### C BC, MG, CMP, ESR, LIPASE, TSH3 #### [address] Globulin (S) [Mass/Vol] 2.0 g/dL [facility] Comment on above: Performed By: #### C BC, MG, CMP, ESR, LIPASE, TSH3 #### [address] Glucose [Mass/Vol] 82 mg/dL Normal 70-100 [facility] Comment on above: Result Comment: [facility] Glucose Reference Range is dependent on time and content of last meal. Glucose of more than 200 mg/dL in a nonstressed, ambulatory subject supports the diagnosis of Diabetes Mellitus. ADA recommended reference range Performed By: #### C BC, MG, CMP, ESR, LIPASE, TSH3 #### [address] Potassium [Moles/Vol] 4.0 mmol/L Normal 3.5-5.1 [facility] Comment on above: Performed By: #### C BC, MG, CMP, ESR, LIPASE, TSH3 #### [address] Protein [Mass/Vol] 4.8 g/dL Low 6.1-7.9 [facility] Comment on above: Performed By: #### C BC, MG, CMP, ESR, LIPASE, TSH3 #### [address] Sodium [Moles/Vol] 138 mmol/L Normal 136-146 [facility] Comment on above: Performed By: #### C BC, MG, CMP, ESR, LIPASE, TSH3 #### [address] Urea nitrogen [Mass/Vol] 2 mg/dL Low 9-23 [facility] Comment on above: Performed By: #### C BC, MG, CMP, ESR, LIPASE, TSH3 #### [address] Globulin Calc (S) [Mass/Vol] Ordered By: Jessica Akhtar on 04-01-2022 Globulin (S) [Mass/Vol] 2.0 g/dL [facility] Hemoglobin and Hematocriton 04-01-2022 Hematocrit (Bld) [Volume fraction] 26.9 % Low 34.0-46.4 [facility] Comment on above: Result Comment: PERF ORMED BY: [place] [address] PATHOLOGIST CRACK OFF PERSON RADHA GARCIA M.D. Performed By: #### C BC, MG, CMP, ESR, LIPASE, TSH3 #### [address] Hemoglobin (Bld) [Mass/Vol] 8.9 g/dL Low 11.8-15.4 [facility] Comment on above: Performed By: #### C BC, MG, CMP, ESR, LIPASE, TSH3 #### [address] Hematocrit (Bld) [Volume fraction] 21.7 % Low 34.0-46.4 [facility] Comment on above: Result Comment: PERF ORMED BY: [place] [address] PATHOLOGIST CRACK OFF PERSON RADHA GARCIA M.D. Performed By: #### L IPASE, PT, CBC, PTT, CMP #### [address] Hemoglobin (Bld) [Mass/Vol] 7.2 g/dL Low 11.8-15.4 [facility] Comment on above: Performed By: #### L IPASE, PT, CBC, PTT, CMP #### [facility] [address] Protein [Mass/volume] in Ser um or PlasmaOrdered By: Jessica Akhtar on 04-01-2022 Protein [Mass/Vol] 4.8 g/dL 6.1-7.9 [facility] Serum or plasma alanine carlos otransferase measurement without P-5'-P (enzymatic activiOrdered By: Jessica Akhtar on 04-01-2022 ALT No additional P-5'-P [Catalytic activity/Vol] 18 U/L 10-60 [facility] Serum or plasma albumin/glob ulin mass ratioOrdered By: Jessica Akhtar on 04-01-2022 Albumin/Globulin [Mass ratio] 1.4 {ratio} [facility] Serum or plasma alkaline belkys sphatase measurement (enzymatic activity/volume)Ordered By: Jessica Akhtar on 04-01-2022 ALP [Catalytic activity/Vol] 47 U/L 32-92 [facility] Serum or plasma aspartate am inotransferase measurement (enzymatic activity/volume)Ordered By: Jessica Akhtar on 04-01-2022 AST [Catalytic activity/Vol] 18 U/L 10-42 [facility] Serum or plasma total biliru bin measurement (mass/volume)Ordered By: Jessica Akhtar on 04-01-2022 Bilirubin [Mass/Vol] 0.4 mg/dL 0.3-1.2 [place] Activated partial thrombopla stin time (aPTT) in platelet poor plasma by coagulation aOrdered By: Jaime Rodriguez on 03-31-2022 aPTT Coag (PPP) [Time] 24.5 s 25.1-36.5 [facility] Albumin [Mass/volume] in Ser um or PlasmaOrdered By: Jaime Rodriguez on 03-31-2022 Albumin [Mass/Vol] 3.2 g/dL 3.2-5.5 [facility] Automated erythrocytes count in urine sediment (number/area)Ordered By: Jessica Akhtar on 03-31-2022 RBC Auto (Urine sed) [#/Area] None seen [HPF] 0-4 [facility] Automated leukocytes count i n urine sediment (number/area)Ordered By: Jessica Akhtar on 03-31-2022 WBC Auto (Urine sed) [#/Area] 10-19 [HPF] 0-4 [facility] Basophils Auto (Bld) [#/Vol] Ordered By: Jaime Rodriguez on 03-31-2022 Basophils (Bld) [#/Vol] 0.1 10*3/uL 0.0-0.2 [facility] Basophils/100 WBC Auto (Bld) Ordered By: Jaimederik Rodriguez on 03-31-2022 Basophils/100 WBC (Bld) 0.5 % . [facility] Bilirubin Test strip Ql (U)O rdered By: Jessica Akhtar on 03-31-2022 Bilirubin Ql (U) Negative Negative [facility] Blood hemoglobin measurement (mass/volume)Ordered By: Jaime Rodriguez on 03-31-2022 Hemoglobin (Bld) [Mass/Vol] 6.8 g/dL 11.8-15.4 [facility] Blood leukocytes automated c ount (number/volume)Ordered By: Jaime Rodriguez on 03-31-2022 WBC (Bld) [#/Vol] 11.7 10*3/uL 4.5-11.0 [facility] COVID-19 Antigenon 2 COVID-19 Antigen Healthcare Worker?: [...] developed and its performance characteristic determined by [employer] and validated at [facility]. This test has not been FDA [...] for SARS Antigen by DISHA PERFORMED BY: [place] [address] PATHOLOGIST CRACK OFF PERSON RADHA GARCIA M.D. Normal [facility] Comment on above: Performed By: #### C BC, MG, CMP, ESR, LIPASE, TSH3 #### [address] COVID-19 [facility] 03-31-2022 SARS-CoV-2 (COVID-19) RNA SARABJIT+probe Ql (Unsp spec) Negative Normal Negative [facility] Comment on above: Order Comment: Healt hcare Worker?: N Result Comment: Testing for SARS-CoV-2 by RT-PCR This test was developed and its performance characteristics determined by Ana, [employer] (BD) and validated at the [facility]. This test has not been FDA [...] is terminated or revoked sooner. PERFORMED BY: [facility] [address] [place] [address] PATHOLOGIST CRACK OFF PERSON RADHA GARCIA M.D. Performed By: #### C BC, MG, CMP, ESR, LIPASE, TSH3 #### [facility] [address] COVID-19 Positive/NegativeOr dered By: Jaime Rodriguez on 03-31-2022 SARS-CoV-2 (COVID-19) N gene SARABJIT+probe Ql (Resp) Negative Negative [facility] Comment on above: Testing for SARS-CoV -2 by RT-PCRThis test was developed and its performance characteristics determined by Ana, [employer] and validated at the [facility]. This test has not been FDA [...] (COVID-19) Ag IA.rapid Ql (Resp) Negative Negative [facility] Comment on above: This is a duplicate [facility] SARS Antigen (DISHA) result to be used for statistical tracking purpose only. CT biopsyOrdered By: Jessica stewart on 03-31-2022 Transferrin [Mass/Vol] 313 mg/dL 180-380 [facility] Clostridioides difficile tox in B tcdB gene [Presence] in Stool by SARABJIT with probe deteOrdered By: Jaime Rodriguez on 03-31-2022 C. difficile toxin B tcdB gene SARABJIT+probe Ql (Stl) Positive Negative [facility] Comment on above: Critical valueresult calledat 1620 on 03/31/22Testing performed by RT-PCR Clostridium Difficileon Clostridium Difficile Positive Normal Negative [facility] Comment on above: Order Comment: > or = to 3 loose/watery stools in the last 24 HRS? Y Is patient on promotility agents or tube feeding? N Result Comment: Crit ical value result called at 1620 on 03/31/22 Testing performed by RT-PCR PERFORMED BY: [place] [address] PATHOLOGIST CRACK OFF PERSON RADHA GARCIA M.D. Performed By: #### C BC, MG, CMP, ESR, LIPASE, TSH3 #### [facility] [address] [place] [address] [place] Color Auto (U)Ordered By: Alfonso Akhtar on 03-31-2022 Color (U) Yellow Yellow [facility] Complete Blood Count Auto Di ffon 03-31-2022 Basophils (Bld) [#/Vol] 0.1 10*3/uL Normal 0.0-0.2 [facility] Comment on above: Performed By: #### C BC, MG, CMP, ESR, LIPASE, TSH3 #### [facility] [address] [place] [address] [place] Basophils/100 WBC (Bld) 0.5 % Normal . [facility] Comment on above: Performed By: #### C BC, MG, CMP, ESR, LIPASE, TSH3 #### [facility] [address] [place] [address] [place] Eosinophils (Bld) [#/Vol] 0.0 10*3/uL Normal 0.0-0.45 [facility] Comment on above: Performed By: #### C BC, MG, CMP, ESR, LIPASE, TSH3 #### [address] Eosinophils/100 WBC (Bld) 0.3 % Normal . [facility] Comment on above: Performed By: #### C BC, MG, CMP, ESR, LIPASE, TSH3 #### [address] Erythrocyte distribution width (RBC) [Ratio] 14.8 % Normal 11.9-15.3 [facility] Comment on above: Performed By: #### C BC, MG, CMP, ESR, LIPASE, TSH3 #### [address] Hematocrit (Bld) [Volume fraction] 21.1 % Low 34.0-46.4 [facility] Comment on above: Performed By: #### C BC, MG, CMP, ESR, LIPASE, TSH3 #### [address] Hemoglobin (Bld) [Mass/Vol] 6.8 g/dL Low 11.8-15.4 [facility] Comment on above: Performed By: #### C BC, MG, CMP, ESR, LIPASE, TSH3 #### [address] Lymphocytes (Bld) [#/Vol] 2.6 10*3/uL Normal 1.00-4.8 [facility] Comment on above: Performed By: #### C BC, MG, CMP, ESR, LIPASE, TSH3 #### [address] Lymphocytes/100 WBC (Bld) 22.6 % Normal . [facility] Comment on above: Performed By: #### C BC, MG, CMP, ESR, LIPASE, TSH3 #### [address] MCH (RBC) [Entitic mass] 28.7 pg Normal 24.7-34.3 [facility] Comment on above: Performed By: #### C BC, MG, CMP, ESR, LIPASE, TSH3 #### [address] MCV (RBC) [Entitic vol] 88.7 fL Normal 80-100 [facility] Comment on above: Performed By: #### C BC, MG, CMP, ESR, LIPASE, TSH3 #### [address] Mean Corpuscular HGB Conc 32.3 g/dL Normal 32.0-35.0 [facility] Comment on above: Performed By: #### C BC, MG, CMP, ESR, LIPASE, TSH3 #### [address] Monocytes (Bld) [#/Vol] 0.7 10*3/uL Normal 0.0-0.8 [facility] Comment on above: Performed By: #### C BC, MG, CMP, ESR, LIPASE, TSH3 #### [address] Monocytes/100 WBC (Bld) 5.6 % Normal . [facility] Comment on above: Performed By: #### C BC, MG, CMP, ESR, LIPASE, TSH3 #### [address] Neutrophils (Bld) [#/Vol] 8.3 10*3/uL High 1.8-7.7 [facility] Comment on above: Performed By: #### C BC, MG, CMP, ESR, LIPASE, TSH3 #### [address] Neutrophils/100 WBC (Bld) 71.0 % Normal . [facility] Comment on above: Performed By: #### C BC, MG, CMP, ESR, LIPASE, TSH3 #### [address] Nucleated RBC/100 WBC (Bld) [Ratio] 0.1 % Normal 0-0.5 [facility] Comment on above: Performed By: #### C BC, MG, CMP, ESR, LIPASE, TSH3 #### [facility] [address] Platelet mean volume (Bld) [Entitic vol] 7.4 fL Normal 6.3-10.7 [facility] Comment on above: Performed By: #### C BC, MG, CMP, ESR, LIPASE, TSH3 #### [address] Platelets (Bld) [#/Vol] 422 10*3/uL Normal 150-450 [facility] Comment on above: Performed By: #### C BC, MG, CMP, ESR, LIPASE, TSH3 #### [address] RBC (Bld) [#/Vol] 2.38 10*6/uL Low 3.60-5.00 [facility] Comment on above: Performed By: #### C BC, MG, CMP, ESR, LIPASE, TSH3 #### [address] WBC (Bld) [#/Vol] 11.7 10*3/uL High 4.5-11.0 [facility] Comment on above: Performed By: #### C BC, MG, CMP, ESR, LIPASE, TSH3 #### [address] Comprehensive Metabolic Pane carlos 03-31-2022 Albumin [Mass/Vol] 3.2 g/dL Normal 3.2-5.5 [facility] Comment on above: Performed By: #### C BC, MG, CMP, ESR, LIPASE, TSH3 #### [address] Albumin/Globulin [Mass ratio] 1.3 {ratio} Normal [facility] Comment on above: Performed By: #### C BC, MG, CMP, ESR, LIPASE, TSH3 #### [address] ALP [Catalytic activity/Vol] 50 U/L Normal 32-92 [facility] Comment on above: Performed By: #### C BC, MG, CMP, ESR, LIPASE, TSH3 #### [facility] [address] [place] [address] ALT [Catalytic activity/Vol] 16 U/L Normal 10-60 [facility] Comment on above: Performed By: #### C BC, MG, CMP, ESR, LIPASE, TSH3 #### [address] Anion gap [Moles/Vol] 12.0 mmol/L Normal 6.0-15.0 [facility] Comment on above: Performed By: #### C BC, MG, CMP, ESR, LIPASE, TSH3 #### [address] AST [Catalytic activity/Vol] 13 U/L Normal 10-42 [facility] Comment on above: Performed By: #### C BC, MG, CMP, ESR, LIPASE, TSH3 #### [address] Bilirubin [Mass/Vol] 0.3 mg/dL Normal 0.3-1.2 [place] Comment on above: Performed By: #### C BC, MG, CMP, ESR, LIPASE, TSH3 #### [address] Calcium [Mass/Vol] 8.9 mg/dL Normal 8.2-10.2 [facility] Comment on above: Performed By: #### C BC, MG, CMP, ESR, LIPASE, TSH3 #### [address] Chloride [Moles/Vol] 103 mmol/L Normal 95-114 [place] Comment on above: Performed By: #### C BC, MG, CMP, ESR, LIPASE, TSH3 #### [address] CO2 [Moles/Vol] 24.1 mmol/L Normal 22.0-30.0 [facility] Comment on above: Performed By: #### C BC, MG, CMP, ESR, LIPASE, TSH3 #### [facility] [address] Creatinine [Mass/Vol] 0.75 mg/dL Normal 0.44-1.03 [facility] Comment on above: Performed By: #### C BC, MG, CMP, ESR, LIPASE, TSH3 #### [address] Creatinine Clr Calc Pharmacy 82.80 [facility] Comment on above: Performed By: #### C BC, MG, CMP, ESR, LIPASE, TSH3 #### [address] Estimated GFR ( Letty > 60 [facility] Comment on above: Result Comment: GFR estimated reference range: According to KDOQI guidelines, <60 ml/min/1.73m2 is sufficient to diagnose a patient with chronic kidney disease. Performed By: #### C BC, MG, CMP, ESR, LIPASE, TSH3 #### [address] Estimated GFR (Non- Am > 60 [facility] Comment on above: Performed By: #### C BC, MG, CMP, ESR, LIPASE, TSH3 #### [address] Globulin (S) [Mass/Vol] 2.5 g/dL [facility] Comment on above: Performed By: #### C BC, MG, CMP, ESR, LIPASE, TSH3 #### [address] Glucose [Mass/Vol] 90 mg/dL Normal 70-100 [facility] Comment on above: Result Comment: [place] [facility] Glucose Reference Range is dependent on time and content of last meal. Glucose of more than 200 mg/dL in a nonstressed, ambulatory subject supports the diagnosis of Diabetes Mellitus. ADA recommended reference range Performed By: #### C BC, MG, CMP, ESR, LIPASE, TSH3 #### [address] Potassium [Moles/Vol] 3.1 mmol/L Low 3.5-5.1 [facility] Comment on above: Performed By: #### C BC, MG, CMP, ESR, LIPASE, TSH3 #### [facility] [address] Protein [Mass/Vol] 5.7 g/dL Low 6.1-7.9 [facility] Comment on above: Performed By: #### C BC, MG, CMP, ESR, LIPASE, TSH3 #### [facility] [address] Sodium [Moles/Vol] 136 mmol/L Normal 136-146 [facility] Comment on above: Performed By: #### C BC, MG, CMP, ESR, LIPASE, TSH3 #### [facility] [address] Urea nitrogen [Mass/Vol] 6 mg/dL Low 9-23 [facility] Comment on above: Performed By: #### C BC, MG, CMP, ESR, LIPASE, TSH3 #### [address] Creatinine and Glomerular fi ltration rate.predicted panel (S/P/Bld)Ordered By: Jaime Rodriguez on 03-31-2022 Creatinine [Mass/Vol] 0.75 mg/dL 0.44-1.03 [facility] Dipstick and Microscopicon 1 Appearance (U) Clear Normal Clear [facility] Comment on above: Order Comment: Name Collection Type:: Clean-Voided Midstream Performed By: #### L IPASE, PT, CBC, PTT, CMP #### [facility] [address] [place] [address] [place] Bacteria,Urine 3+ High None Seen [facility] Comment on above: Order Comment: Name Collection Type:: Clean-Voided Midstream Performed By: #### L IPASE, PT, CBC, PTT, CMP #### [facility] [address] Bilirubin,Urine Negative Normal Negative [facility] Comment on above: Order Comment: Name Collection Type:: Clean-Voided Midstream Performed By: #### L IPASE, PT, CBC, PTT, CMP #### [address] Color (U) Yellow Normal Yellow [facility] Comment on above: Order Comment: Name Collection Type:: Clean-Voided Midstream Performed By: #### L IPASE, PT, CBC, PTT, CMP #### [address] Glucose Ql (U) Normal Normal Normal [facility] Comment on above: Order Comment: Name Collection Type:: Clean-Voided Midstream Performed By: #### L IPASE, PT, CBC, PTT, CMP #### [address] Hyaline Casts,Urine 0-8 Normal 0-8 [facility] Comment on above: Order Comment: Name Collection Type:: Clean-Voided Midstream Result Comment: PERF ORMED BY: [place] [address] PATHOLOGIST CRACK OFF PERSON RADHA GARCIA M.D. Performed By: #### L IPASE, PT, CBC, PTT, CMP #### [address] Ketones Ql (U) Negative Normal Negative [facility] Comment on above: Order Comment: Name Collection Type:: Clean-Voided Midstream Performed By: #### L IPASE, PT, CBC, PTT, CMP #### [address] Leukocyte esterase Test strip Ql (U) 3+ High Negative [facility] Comment on above: Order Comment: Name Collection Type:: Clean-Voided Midstream Performed By: #### L IPASE, PT, CBC, PTT, CMP #### [address] Nitrite,Urine Positive High Negative [facility] Comment on above: Order Comment: Name Collection Type:: Clean-Voided Midstream Performed By: #### L IPASE, PT, CBC, PTT, CMP #### [address] Occult Blood,Urine Negative Normal Negative [facility] Comment on above: Order Comment: Name Collection Type:: Clean-Voided Midstream Result Comment: PERF ORMED BY: [place] [address] PATHOLOGIST CRACK OFF PERSON RADHA GARCIA M.D. Performed By: #### L IPASE, PT, CBC, PTT, CMP #### [address] pH (U) 5.5 [pH] Normal 5.0-9.0 [facility] Comment on above: Order Comment: Name Collection Type:: Clean-Voided Midstream Performed By: #### L IPASE, PT, CBC, PTT, CMP #### [address] Protein,Urine Negative Normal Negative [facility] Comment on above: Order Comment: Name Collection Type:: Clean-Voided Midstream Performed By: #### L IPASE, PT, CBC, PTT, CMP #### [address] RBC,Urine None Seen Normal 0-4 [facility] Comment on above: Order Comment: Name Collection Type:: Clean-Voided Midstream Performed By: #### L IPASE, PT, CBC, PTT, CMP #### [address] Specificy [place],Urine 1.005 Normal 1.001-1.03 0 [facility] Comment on above: Order Comment: Name Collection Type:: Clean-Voided Midstream Performed By: #### L IPASE, PT, CBC, PTT, CMP #### [address] Squamous Epithelial Cell,Urine 5-9 High 0-2 [facility] Comment on above: Order Comment: Name Collection Type:: Clean-Voided Midstream Performed By: #### L IPASE, PT, CBC, PTT, CMP #### [address] Urobilinogen,Urine Normal Normal Normal [facility] Comment on above: Order Comment: Name Collection Type:: Clean-Voided Midstream Performed By: #### L IPASE, PT, CBC, PTT, CMP #### [facility] [address] [place] [id number] [facility] WBC,Urine 10-19 High 0-4 [facility] Comment on above: Order Comment: Name Collection Type:: Clean-Voided Midstream Performed By: #### L IPASE, PT, CBC, PTT, CMP #### [facility] [address] [place] [id number] [facility] ECG 12 lead ECGon 03-31-2022 ECG 12 lead ECG [facility] [place] [address] [place] [address] Electrocardiograph Report Signed Patient: Raquel Correa MR#: [id number] : 1985 Acct:[id number] Age/Sex: 37 / F ADM Date: 03/31/22 Loc: Room: [address] [place] [address] Type: DIS INOo Attending Dr: Jessica Akhtar [...] Inferior leads Confirmed by Jaime Rodriguez DO ([id number]) on 03/31/2022 12:35:27 PM Referred By: Electronically Signed By:Jaime Rodriguez DO Transcribed By: MUS Signed By Jaime Rodriguez DO 03/31 1235 Normal [facility] Eosinophils Auto (Bld) [#/Vo l]Ordered By: Jaime Rodriguez on 03-31-2022 Eosinophils (Bld) [#/Vol] 0.0 10*3/uL 0.0-0.45 [facility] Eosinophils/100 WBC Auto (Bl d)Ordered By: Jaime Rodriguez on 03-31-2022 Eosinophils/100 WBC (Bld) 0.3 % . [facility] Erythrocyte Sedimentation Ra josey 03-31-2022 ESR (Bld) [Velocity] 8 mm/h Normal 0-19 [place] Comment on above: Result Comment: PERF ORMED BY: [facility] [address] [place] [address] PATHOLOGIST CRACK OFF PERSON RADHA GARCIA M.D. Performed By: #### C BC, MG, CMP, ESR, LIPASE, TSH3 #### [facility] [address] Erythrocyte distribution wid th Auto (RBC) [Ratio]Ordered By: Jaime Rodriguez on 03-31-2022 Erythrocyte distribution width (RBC) [Ratio] 14.8 % 11.9-15.3 [facility] Erythrocyte sedimentation ra te by Photometric methodOrdered By: Jaime Rodriguez on 03-31-2022 ESR Photometric method (Bld) [Velocity] 8 mm/hr 0- [facility] Estimated glomerular filtrat ion rate (GFR) non- AmericanOrdered By: Jaime Rodriguez on 03-31-2022 GFR/1.73 sq M.predicted among non-blacks MDRD (S/P/Bld) [Vol rate/Area] > 60 mL/Min [facility] Ferritinon 03-31-2022 Ferritin [Mass/Vol] 3.9 ng/mL Low 306.8 [facility] Comment on above: Order Comment: Comme nt add Performed By: #### L IPASE, PT, CBC, PTT, CMP #### [facility] [address] Ferritin [Mass/volume] in Se rum or PlasmaOrdered By: Jessica Akhtar on 03-31-2022 Ferritin [Mass/Vol] 3.9 ng/mL 11-306.8 [facility] Folate [Mass/volume] in Seru m or PlasmaOrdered By: Jessica Akhtar on 03-31-2022 Folate [Mass/Vol] 21.7 ng/mL >5.9 [facility] Comment on above: Folate reference ran ge: >5.9 ng/mlThe WHO technical consultation on folate and vitamin [id number] has determined that folate concentrations lessthan 4 ng/ml are considered deficient. Globulin Calc (S) [Mass/Vol] Ordered By: Jamie Rodriguez on 03-31-2022 Globulin (S) [Mass/Vol] 2.5 g/dL [facility] Hematocrit Auto (Bld) [Volum e fraction]Ordered By: Jaime Rodriguez on 03-31-2022 Hematocrit (Bld) [Volume fraction] 21.1 % 34.0-46.4 [facility] Hemoglobin and Hematocriton 03-31-2022 Hematocrit (Bld) [Volume fraction] 24.1 % Low 34.0-46.4 [facility] [facility] Comment on above: Result Comment: PERF ORMED BY: [place] [address] PATHOLOGIST CRACK OFF PERSON RADHA GARCIA M.D. Performed By: #### C BC, MG, CMP, ESR, LIPASE, TSH3 #### [address] Hemoglobin (Bld) [Mass/Vol] 8.0 g/dL Low 11.8-15.4 [facility] Comment on above: Performed By: #### C BC, MG, CMP, ESR, LIPASE, TSH3 #### [address] Iron [Mass/volume] in Serum or PlasmaOrdered By: Jessica Akhtar on 03-31-2022 Iron [Mass/Vol] 9 ug/dL 40-150 [facility] Iron and TIBC Profileon 100 % Iron Saturation 2.0 % Low 20-50 [facility] Comment on above: Order Comment: Comme nt add Performed By: #### L IPASE, PT, CBC, PTT, CMP #### [facility] [address] Iron [Mass/Vol] 9 ug/dL Low 40-150 [facility] Comment on above: Order Comment: Comme nt add Performed By: #### L IPASE, PT, CBC, PTT, CMP #### [facility] [address] Total Iron Binding Capacity 438 ug/dL Normal 255-450 [facility] Comment on above: Order Comment: Comme nt add Performed By: #### L IPASE, PT, CBC, PTT, CMP #### [facility] [address] [place] [address] [place] Transferrin [Mass/Vol] 313 mg/dL Normal 180-380 [facility] Comment on above: Order Comment: Comme nt add Performed By: #### L IPASE, PT, CBC, PTT, CMP #### [facility] [address] Iron binding capacity [Mass/ volume] in Serum or PlasmaOrdered By: Jessica Akhtar on 03-31-2022 Iron binding capacity [Mass/Vol] 438 ug/dL 255-450 [facility] Iron saturation [Mass Fracti on] in Serum or PlasmaOrdered By: Jessica Akhtar on 03-31-2022 Iron saturation [Mass fraction] 2.0 % 20-50 [facility] Ketones Auto test strip (U) [Mass/Vol]Ordered By: Jessica Akhtar on 03-31-2022 Ketones (U) [Mass/Vol] Negative Negative [facility] Laboratory - Chemistry and C hemistry - challengeOrdered By: Jessica Akhtar on 03-31-2022 Cobalamin (Vitamin B12) [Mass/Vol] 111 pg/mL 180-914 [facility] Magnesium [Mass/Vol] 1.6 mg/dL 1.6-2.6 [facility] - Chemistry and C hemistry - challengeOrdered By: Jaime Rodriguez on 03-31-2022 Lipase [Catalytic activity/Vol] 31.0 U/L 22-51 [facility] Magnesium [Mass/Vol] 1.7 mg/dL 1.6-2.6 [facility] - CoagulationOrde red By: Jaime Rodriguez on 03-31-2022 PT Coag (PPP) [Time] 11.3 s 9.0-12.9 [facility] - Hematology and Cell countsOrdered By: Jaime Rodriguez on 03-31-2022 Nucleated RBC/100 WBC (Bld) [Ratio] 0.1 % 0-0.5 [facility] - UrinalysisOrder ed By: Jessica Akhtar on 03-31-2022 Hyaline casts LM Ql (Urine sed) 0-8 [LPF] 0-8 [facility] LeukoReduced RBCon 2 LeukoReduced RBC TRANSFUSED 03/31/22 1615 Normal [facility] Lipaseon 03-31-2022 Lipase [Catalytic activity/Vol] 31.0 U/L Normal 22-51 [facility] Comment on above: Performed By: #### C BC, MG, CMP, ESR, LIPASE, TSH3 #### [facility] [address] Lymphocytes Auto (Bld) [#/Vo l]Ordered By: Jaime Rodriguez on 03-31-2022 Lymphocytes (Bld) [#/Vol] 2.6 10*3/uL 1.00-4.8 [facility] Lymphocytes/100 WBC Auto (Bl d)Ordered By: Jaime Rodriguez on 03-31-2022 Lymphocytes/100 WBC (Bld) 22.6 % . [facility] MCH Auto (RBC) [Entitic mass ]Ordered By: Jaime Rodriguez on 03-31-2022 MCH (RBC) [Entitic mass] 28.7 pg 24.7-34.3 [facility] MCHC Auto (RBC) [Mass/Vol]Or dered By: Jaime Rodriguez on 03-31-2022 MCHC (RBC) [Mass/Vol] 32.3 g/dL 32.0-35.0 [facility] MCV Auto (RBC) [Entitic vol] Ordered By: Jaime Rodriguez on 03-31-2022 MCV (RBC) [Entitic vol] 88.7 fL 80-100 [facility] Magnesiumon 03-31-2022 Magnesium [Mass/Vol] 1.7 mg/dL Normal 1.6-2.6 [place] Comment on above: Performed By: #### C BC, MG, CMP, ESR, LIPASE, TSH3 #### [facility] [address] Magnesium [Mass/Vol] 1.6 mg/dL Normal 1.6-2.6 [place] Comment on above: Order Comment: Comme nt add Performed By: #### L IPASE, PT, CBC, PTT, CMP #### [facility] [address] Monocytes Auto (Bld) [#/Vol] Ordered By: Jaime Rodriguez on 03-31-2022 Monocytes (Bld) [#/Vol] 0.7 10*3/uL 0.0-0.8 [facility] Monocytes/100 WBC Auto (Bld) Ordered By: Jaime Rodriguez on 03-31-2022 Monocytes/100 WBC (Bld) 5.6 % . [facility] Neutrophils Auto (Bld) [#/Vo l]Ordered By: Jaime Rodriguez on 03-31-2022 Neutrophils (Bld) [#/Vol] 8.3 10*3/uL 1.8-7.7 [facility] Neutrophils/100 WBC Auto (Bl d)Ordered By: Jaime Rodriguez on 03-31-2022 Neutrophils/100 WBC (Bld) 71.0 % . [facility] Nitrite Test strip Ql (U)Ord ered By: Jessica Akhtar on 03-31-2022 Nitrite Ql (U) Positive Negative [facility] No Panel InformationOrdered By: Jaime Rodriguez on 03-31-2022 Estimated GFR () > 60 mL/Min [facility] Comment on above: GFR estimated refere nce range: According to KDOQI guidelines, <60 ml/min/1.73m2 is sufficient to diagnose a patient with chronic kidney disease. Pharmacy Creatinine Clearance (Chem 82.80 [facility] SARS Antigen (LFIA) [facility] Partial Thromboplastin Timeo n 03-31-2022 aPTT Coag (Bld) [Time] 24.5 s Low 25.1-36.5 [facility] Comment on above: Result Comment: PERF ORMED BY: [facility] [address] [place] [address] PATHOLOGIST CRACK OFF PERSON RADHA GARCIA M.D. Performed By: #### C BC, MG, CMP, ESR, LIPASE, TSH3 #### [facility] [address] Platelet mean volume Auto (B ld) [Entitic vol]Ordered By: Jaime Rodriguez on 03-31-2022 Platelet mean volume (Bld) [Entitic vol] 7.4 fL 6.3-10.7 [facility] Platelet poor plasma interna tional normalized ratio (INR) by coagulation assay (relatOrdered By: Jaime Rodriguez on 03-31-2022 INR Coag (PPP) [Relative time] 1.0 {INR} [facility] Comment on above: INR Therapeutic Rang [...] 03-31-2022 Platelets (Bld) [#/Vol] 422 10*3/uL 150-450 [facility] Protein Auto test strip (U) [Mass/Vol]Ordered By: Jessica Akhtar on 03-31-2022 Protein (U) [Mass/Vol] Negative Negative [facility] Protein [Mass/volume] in Ser um or PlasmaOrdered By: Jaime Rodriguez on 03-31-2022 Protein [Mass/Vol] 5.7 g/dL 6.1-7.9 [facility] Prothrombin Time INRon 03-31 INR Coag (PPP) [Relative time] 1.0 {INR} Normal [facility] Comment on above: Result Comment: INR [...] BC, MG, CMP, ESR, LIPASE, TSH3 #### [facility] [address] PT Coag (PPP) [Time] 11.3 s Normal 9.0-12.9 [place] Comment on above: Performed By: #### C BC, MG, CMP, ESR, LIPASE, TSH3 #### [facility] [address] RBC Auto (Bld) [#/Vol]Ordere d By: Jaime Rodriguez on 03-31-2022 RBC (Bld) [#/Vol] 2.38 10*6/uL 3.60-5.00 [facility] Serum or plasma alanine carlos otransferase measurement without P-5'-P (enzymatic activiOrdered By: Jaime Rodriguez on 03-31-2022 ALT No additional P-5'-P [Catalytic activity/Vol] 16 U/L [facility] Serum or plasma albumin/glob ulin mass ratioOrdered By: Jaime Rodriguez on 03-31-2022 Albumin/Globulin [Mass ratio] 1.3 {ratio} [facility] Serum or plasma alkaline belkys sphatase measurement (enzymatic activity/volume)Ordered By: Jaime Rodriguez on 03-31-2022 ALP [Catalytic activity/Vol] 50 U/L 92 [facility] Serum or plasma anion gap de terminationOrdered By: Jaime Rodriguez on 03-31-2022 Anion gap [Moles/Vol] 12.0 mmol/L 6.0-15.0 [facility] Serum or plasma aspartate am inotransferase measurement (enzymatic activity/volume)Ordered By: Jaime Rodriguez on 03-31-2022 AST [Catalytic activity/Vol] 13 U/L [facility] Serum or plasma calcium mariana urement (mass/volume)Ordered By: Jaime Rodriguez on 03-31-2022 Calcium [Mass/Vol] 8.9 mg/dL 8.2-10.2 [facility] Serum or plasma chloride jaqui surement (moles/volume)Ordered By: Jaime Rodriguez on 03-31-2022 Chloride [Moles/Vol] 103 mmol/L 95-114 [place] Serum or plasma glucose mariana urement (mass/volume)Ordered By: Jaime Rodriguez on 03-31-2022 Glucose [Mass/Vol] 90 mg/dL 70-100 [facility] Comment on above: ADA recommended refe rence rangeRandom Glucose Reference Range is dependent on time and content of last meal. Glucose of more than 200 mg/dL in a nonstressed, ambulatory subject supports the diagnosis of Diabetes Mellitus. Serum or plasma potassium me asurement (moles/volume)Ordered By: Jaime Rodriguez on 03-31-2022 Potassium [Moles/Vol] 3.1 mmol/L 3.5-5.1 [facility] Serum or plasma sodium measu rement (moles/volume)Ordered By: Jaime Rodriguez on 03-31-2022 Sodium [Moles/Vol] 136 mmol/L 136-146 [facility] Serum or plasma total biliru bin measurement (mass/volume)Ordered By: Jaime Rodriguez on 03-31-2022 Bilirubin [Mass/Vol] 0.3 mg/dL 0.3-1.2 [place] Serum or plasma total carbon dioxide measurement (moles/volume)Ordered By: Jaime Rodriguez on 03-31-2022 CO2 [Moles/Vol] 24.1 mmol/L 22.0-30.0 [facility] Serum or plasma urea nitroge n measurement (mass/volume)Ordered By: Jaime Rodriguez on 03-31-2022 Urea nitrogen [Mass/Vol] 6 mg/dL - [facility] Ghazala Ag Negativeon 03-31-20 Ghazala Ag Negative Negative Normal Negative [facility] Comment on above: Result Comment: This is a duplicate [facility] SARS Antigen (DISHA) result to be used for statistical tracking purpose only. PERFORMED BY: [place] [address] PATHOLOGIST CRACK OFF PERSON RADHA GARCIA M.D. Performed By: #### C BC, MG, CMP, ESR, LIPASE, TSH3 #### [address] Specific gravity Auto test s trip (U) [Rel density]Ordered By: Jessica Akhtar on 03-31-2022 Specific gravity (U) [Rel density] 1.005 1.001-1.03 0 [facility] Squamous epithelial cells de tection in urine sediment by light microscopyOrdered By: Jessica Akhtar on 03-31-2022 Epithelial cells.squamous LM Ql (Urine sed) 5-9 [HPF] 0-2 [facility] Stool Cultureon 03-31-2022 Stool culture Negative for Shiga T oxin 1 Negative for Shiga Toxin 2 -- A negative Shiga Toxin result may occur if the antigen level in the specimen is below the detection limit of the assay. Stool culture results No Salmonella, Shigella, Campy or E. coli 0157:H7 Isolated PERFORMED BY: [place] [address] PATHOLOGIST CRACK OFF PERSON RADHA GARCIA M.D. [facility] Comment on above: Performed By: #### C BC, MG, CMP, ESR, LIPASE, TSH3 #### [address] Stool Occult Blood (Guaiac)o n 03-31-2022 Stool Occult Blood (Guaiac) Occult Blood Positive for Occult Blood by Guaiac Methodology -- Reference range = Negative LACTOFERRIN Negative for Fecal Lactoferrin Immune suppression may cause reduced WBC counts, leading to a false negative result. -- Reference range = Negative PERFORMED BY: [place] [address] PATHOLOGIST CRACK OFF PERSON RADHA GARCIA M.D. Normal [facility] Comment on above: Performed By: #### C BC, MG, CMP, ESR, LIPASE, TSH3 #### [facility] [address] [place] [address] TSH DL <= 0.005 mIU/L QnOrde red By: Jaime Rodriguez on 03-31-2022 TSH Qn 3.41 m[IU]/L 0.45-5.33 [facility] Thyroid Stimulating Hormoneo n 03-31-2022 TSH Qn 3.41 m[IU]/L Normal 0.45-5.33 [facility] Comment on above: Result Comment: PERF ORMED BY: [place] [address] PATHOLOGIST CRACK OFF PERSON RADHA GARCIA M.D. Performed By: #### C BC, MG, CMP, ESR, LIPASE, TSH3 #### [facility] [address] [place] [address] Type and Screenon 03-31-2022 ABO and Rh group Nom (Bld) Blood group O Rh(D) positive Normal [facility] Comment on above: Order Comment: Trans fuse now? Y Number of units to transfuse now? 1 Result Comment: PERF ORMED BY: [place] [address] PATHOLOGIST CRACK OFF PERSON RADHA GARCIA M.D. Urine Cultureon 03-31-2022 Bacteria identified Cx Nom (U) ORGANISM: Escherichia coli (ESBL) (O:ESCCOLESBL) [place] Count >100,000 Aerobic DIVYA Charge (NUC86) SUSCEPTIBILITY [...] RESISTANT TO ALL B-LACTAM DRUGS. PERFORMED BY: [facility] [address] [place] [address] PATHOLOGIST CRACK OFF PERSON RADHA GARCIA M.D. Normal [facility] Comment on above: Performed By: #### L IPASE, PT, CBC, PTT, CMP #### [facility] [address] [place] [address] [place] Urine bacteria detection by automated methodOrdered By: Jessica Akhtar on 03-31-2022 Bacteria Auto Ql (U) 3+ None Seen [place] Urine clarity by refractomet ry automatedOrdered By: Jessica Akhtar on 03-31-2022 Clarity Refractometry automated (U) Clear Clear [facility] Urine glucose measurement by automated test strip (mass/volume)Ordered By: Jessica Akhtar on 03-31-2022 Glucose Auto test strip (U) [Mass/Vol] Normal mg/dL Normal [facility] Urine hemoglobin detection b y automated test stripOrdered By: Jessica Akhtar on 03-31-2022 Hemoglobin Auto test strip Ql (U) Negative Negative [facility] Urine leukocyte esterase det ection by automated test stripOrdered By: Jessica Akhtar on 03-31-2022 Leukocyte esterase Auto test strip Ql (U) 3+ Negative [facility] Urobilinogen Auto test strip (U) [Mass/Vol]Ordered By: Jessica Akhtar on 03-31-2022 Urobilinogen (U) [Mass/Vol] Normal mg/dL Normal [facility] Vit. B12/Folate Profileon Cobalamin (Vitamin B12) [Mass/Vol] 111 pg/mL Low 180-914 [facility] Comment on above: Order Comment: Comme nt add Performed By: #### L IPASE, PT, CBC, PTT, CMP #### [facility] [address] [place] [address] Folate 21.7 ng/mL Normal >5.9 [facility] Comment on above: Order Comment: Comme nt add Result Comment: Gabi te reference range: >5.9 ng/ml The WHO technical consultation on folate and vitamin b12 deficiencies has determined that folate concentrations less than 4 ng/ml are considered deficient. PERFORMED BY: [place] [address] PATHOLOGIST CRACK OFF PERSON RADHA GARCIA M.D. Performed By: #### L IPASE, PT, CBC, PTT, CMP #### [facility] [address] pH Auto test strip (U)Ordere d By: Jessica Akhtar on 03-31-2022 pH (U) 5.5 [pH] 5.0-9.0 [facility] Urine culture routineOrdered By: Dominik Vanegas on 03-30-2022 Bacteria identified Cx Nom (U) Escherichia coli (ESBL) [facility] Activated partial thrombopla stin time (aPTT) in platelet poor plasma by coagulation aOrdered By: Dominik Vanegas on 03-27-2022 aPTT Coag (PPP) [Time] 27.8 s 25.1-36.5 [facility] Albumin [Mass/volume] in Ser um or PlasmaOrdered By: Dominik Vanegas on 03-27-2022 Albumin [Mass/Vol] 3.5 g/dL 3.2-5.5 [facility] Automated erythrocytes count in urine sediment (number/area)Ordered By: Dominik Vanegas on 03-27-2022 RBC Auto (Urine sed) [#/Area] 10-19 [HPF] 0-4 [facility] Automated leukocytes count i n urine sediment (number/area)Ordered By: Dominik Vanegas on 03-27-2022 WBC Auto (Urine sed) [#/Area] Innumerable [HPF] 0-4 [facility] Automated urine hyaline cast s count (number/volume)Ordered By: Dominik Vanegas on 03-27-2022 Hyaline casts Auto (U) [#/Vol] None seen [LPF] 0-1 [facility] Basophils Auto (Bld) [#/Vol] Ordered By: Dominik Vanegas on 03-27-2022 Basophils (Bld) [#/Vol] 0.0 10*3/uL 0.0-0.2 [facility] Basophils/100 WBC Auto (Bld) Ordered By: Dominik Vanegas on 03-27-2022 Basophils/100 WBC (Bld) 0.4 % . [facility] Bilirubin Test strip Ql (U)O rdered By: Dominik Vanegas on 03-27-2022 Bilirubin Ql (U) Negative Negative [facility] Blood hemoglobin measurement (mass/volume)Ordered By: Dominik Vanegas on 03-27-2022 Hemoglobin (Bld) [Mass/Vol] 9.8 g/dL 11.8-15.4 [facility] Blood leukocytes automated c ount (number/volume)Ordered By: Dominik Vanegas on 03-27-2022 WBC (Bld) [#/Vol] 11.7 10*3/uL 4.5-11.0 [facility] CT abdomen pelvis w conon CT abdomen pelvis w con [address] [address] [address] Scan Report Signed Patient: Raquel Correa MR#: [id number] : 1985 Acct:[id number] Age/Sex: 37 / F ADM Date: 03/27/22 Loc: ER Room: Type: [facility] ER Attending Dr: Copies to: Dominik Vanegas [...] Nicolas Beck M.D.03/27/2022 1:58 PM Dictation Location: [place] [address] Transcribed By: TIFFANIE 03/27/22 135 Dictated By: Nicolas Beck II, MD 03/27/22 1350 Signed By: 03/27/22 1358 Normal [facility] Casts typing in urine sedime nt by light microscopyOrdered By: Dominik Vanegas on 03-27-2022 Casts LM Nom (Urine sed) None seen [LPF] None Seen [facility] Color Auto (U)Ordered By: Bhavesh Vanegas on 03-27-2022 Color (U) Dark yellow Yellow [facility] Complete Blood Count Auto Di ffon 03-27-2022 Basophils (Bld) [#/Vol] 0.0 10*3/uL Normal 0.0-0.2 [facility] Comment on above: Result Comment: PERF ORMED BY: [place] [address] PATHOLOGIST CRACK OFF PERSON RADHA GARCIA M.D. Performed By: #### L IPASE, PT, CBC, PTT, CMP #### [facility] [address] [place] [address] [place] Basophils/100 WBC (Bld) 0.4 % Normal . [facility] Comment on above: Performed By: #### L IPASE, PT, CBC, PTT, CMP #### [facility] [address] [place] [address] [place] Eosinophils (Bld) [#/Vol] 0.0 10*3/uL Normal 0.0-0.45 [facility] Comment on above: Performed By: #### L IPASE, PT, CBC, PTT, CMP #### [facility] [address] [place] [address] [place] Eosinophils/100 WBC (Bld) 0.3 % Normal . [facility] Comment on above: Performed By: #### L IPASE, PT, CBC, PTT, CMP #### [address] Erythrocyte distribution width (RBC) [Ratio] 13.2 % Normal 11.9-15.3 [facility] Comment on above: Performed By: #### L IPASE, PT, CBC, PTT, CMP #### [address] Hematocrit (Bld) [Volume fraction] 29.0 % Low 34.0-46.4 [facility] Comment on above: Performed By: #### L IPASE, PT, CBC, PTT, CMP #### [address] Hemoglobin (Bld) [Mass/Vol] 9.8 g/dL Low 11.8-15.4 [facility] Comment on above: Performed By: #### L IPASE, PT, CBC, PTT, CMP #### [address] Lymphocytes (Bld) [#/Vol] 2.9 10*3/uL Normal 1.00-4.8 [facility] Comment on above: Performed By: #### L IPASE, PT, CBC, PTT, CMP #### [address] Lymphocytes/100 WBC (Bld) 24.8 % Normal . [facility] Comment on above: Performed By: #### L IPASE, PT, CBC, PTT, CMP #### [address] MCH (RBC) [Entitic mass] 28.8 pg Normal 24.7-34.3 [facility] Comment on above: Performed By: #### L IPASE, PT, CBC, PTT, CMP #### [address] MCV (RBC) [Entitic vol] 85.3 fL Normal 80-100 [facility] Comment on above: Performed By: #### L IPASE, PT, CBC, PTT, CMP #### [address] Mean Corpuscular HGB Conc 33.7 g/dL Normal 32.0-35.0 [facility] Comment on above: Performed By: #### L IPASE, PT, CBC, PTT, CMP #### [address] Monocytes (Bld) [#/Vol] 0.8 10*3/uL Normal 0.0-0.8 [facility] Comment on above: Performed By: #### L IPASE, PT, CBC, PTT, CMP #### [address] Monocytes/100 WBC (Bld) 6.6 % Normal . [facility] Comment on above: Performed By: #### L IPASE, PT, CBC, PTT, CMP #### [address] Neutrophils (Bld) [#/Vol] 7.9 10*3/uL High 1.8-7.7 [facility] Comment on above: Performed By: #### L IPASE, PT, CBC, PTT, CMP #### [address] Neutrophils/100 WBC (Bld) 67.9 % Normal . [facility] Comment on above: Performed By: #### L IPASE, PT, CBC, PTT, CMP #### [address] Nucleated RBC/100 WBC (Bld) [Ratio] 0.1 % Normal 0-0.5 [facility] Comment on above: Performed By: #### L IPASE, PT, CBC, PTT, CMP #### [address] Platelet mean volume (Bld) [Entitic vol] 8.0 fL Normal 6.3-10.7 [facility] Comment on above: Performed By: #### L IPASE, PT, CBC, PTT, CMP #### [address] [place] [address] [place] Platelets (Bld) [#/Vol] 471 10*3/uL High 150-450 [facility] Comment on above: Performed By: #### L IPASE, PT, CBC, PTT, CMP #### [address] RBC (Bld) [#/Vol] 3.40 10*6/uL Low 3.60-5.00 [facility] Comment on above: Performed By: #### L IPASE, PT, CBC, PTT, CMP #### [address] WBC (Bld) [#/Vol] 11.7 10*3/uL High 4.5-11.0 [facility] Comment on above: Performed By: #### L IPASE, PT, CBC, PTT, CMP #### [address] Comprehensive Metabolic Pane carlos 03-27-2022 Albumin [Mass/Vol] 3.5 g/dL Normal 3.2-5.5 [facility] Comment on above: Performed By: #### C BC, MG, CMP, ESR, LIPASE, TSH3 #### [address] Albumin/Globulin [Mass ratio] 1.2 {ratio} Normal [facility] Comment on above: Performed By: #### C BC, MG, CMP, ESR, LIPASE, TSH3 #### [address] ALP [Catalytic activity/Vol] 69 U/L Normal 32-92 [facility] Comment on above: Performed By: #### C BC, MG, CMP, ESR, LIPASE, TSH3 #### [address] ALT [Catalytic activity/Vol] 34 U/L Normal 10-60 [facility] Comment on above: Performed By: #### C BC, MG, CMP, ESR, LIPASE, TSH3 #### [place] [id number] [place] Anion gap [Moles/Vol] 12.7 mmol/L Normal 6.0-15.0 [facility] Comment on above: Performed By: #### C BC, MG, CMP, ESR, LIPASE, TSH3 #### [facility] [address] AST [Catalytic activity/Vol] 22 U/L Normal 10-42 [facility] Comment on above: Performed By: #### C BC, MG, CMP, ESR, LIPASE, TSH3 #### [facility] [address] Bilirubin [Mass/Vol] 0.3 mg/dL Normal 0.3-1.2 [place] Comment on above: Performed By: #### C BC, MG, CMP, ESR, LIPASE, TSH3 #### [address] Calcium [Mass/Vol] 9.1 mg/dL Normal 8.2-10.2 [facility] Comment on above: Performed By: #### C BC, MG, CMP, ESR, LIPASE, TSH3 #### [address] Chloride [Moles/Vol] 98 mmol/L Normal 95-114 [place] Comment on above: Performed By: #### C BC, MG, CMP, ESR, LIPASE, TSH3 #### [address] CO2 [Moles/Vol] 24.3 mmol/L Normal 22.0-30.0 [facility] Comment on above: Performed By: #### C BC, MG, CMP, ESR, LIPASE, TSH3 #### [facility] [address] [place] [address] Creatinine [Mass/Vol] 0.82 mg/dL Normal 0.44-1.03 [facility] Comment on above: Performed By: #### C BC, MG, CMP, ESR, LIPASE, TSH3 #### [address] Creatinine Clr Cal[facility] Pharm[facility] 75.74 Normal [facility] Comment on above: Performed By: #### C BC, MG, CMP, ESR, LIPASE, TSH3 #### [facility] [address] Estimated GFR ( Letty > 60 [facility] Comment on above: Result Comment: GFR estimated reference range: According to KDOQI guidelines, <60 ml/min/1.73m2 is sufficient to diagnose a patient with chronic kidney disease. Performed By: #### C BC, MG, CMP, ESR, LIPASE, TSH3 #### [facility] [address] Estimated GFR (Non- Am > 60 [facility] Comment on above: Performed By: #### C BC, MG, CMP, ESR, LIPASE, TSH3 #### [facility] [address] Globulin (S) [Mass/Vol] 2.9 g/dL [facility] Comment on above: Performed By: #### C BC, MG, CMP, ESR, LIPASE, TSH3 #### [facility] [address] Glucose [Mass/Vol] 111 mg/dL High 70-100 [facility] Comment on above: Result Comment: [place] om Glucose Reference Range is dependent on time and content of last meal. Glucose of more than 200 mg/dL in a nonstressed, ambulatory subject supports the diagnosis of Diabetes Mellitus. ADA recommended reference range Performed By: #### C BC, MG, CMP, ESR, LIPASE, TSH3 #### [address] Potassium [Moles/Vol] 3.0 mmol/L Low 3.5-5.1 [facility] Comment on above: Performed By: #### C BC, MG, CMP, ESR, LIPASE, TSH3 #### [facility] [address] Protein [Mass/Vol] 6.4 g/dL Normal 6.1-7.9 [facility] Comment on above: Performed By: #### C BC, MG, CMP, ESR, LIPASE, TSH3 #### [facility] [address] Sodium [Moles/Vol] 132 mmol/L Low 136-146 [facility] Comment on above: Performed By: #### C BC, MG, CMP, ESR, LIPASE, TSH3 #### [facility] [address] Urea nitrogen [Mass/Vol] 6 mg/dL Low 9-23 [facility] Comment on above: Performed By: #### C BC, MG, CMP, ESR, LIPASE, TSH3 #### [facility] [address] Creatinine and Glomerular fi ltration rate.predicted panel (S/P/Bld)Ordered By: Dominik Vanegas on 03-27-2022 Creatinine [Mass/Vol] 0.82 mg/dL 0.44-1.03 [facility] Dipstick and Microscopicon 1 Appearance (U) Cloudy Critically abnormal Clear [facility] Comment on above: Order Comment: Name Collection Type:: Clean-Voided Midstream Performed By: #### C BC, MG, CMP, ESR, LIPASE, TSH3 #### [address] Bacteria,Urine 4+ High None Seen [facility] Comment on above: Order Comment: Name Collection Type:: Clean-Voided Midstream Performed By: #### C BC, MG, CMP, ESR, LIPASE, TSH3 #### [facility] [address] Bilirubin,Urine Negative Normal Negative [facility] Comment on above: Order Comment: Name Collection Type:: Clean-Voided Midstream Performed By: #### C BC, MG, CMP, ESR, LIPASE, TSH3 #### [facility] [address] Color (U) Dark Yellow Critically abnormal Yellow [facility] Comment on above: Order Comment: Name Collection Type:: Clean-Voided Midstream Performed By: #### C BC, MG, CMP, ESR, LIPASE, TSH3 #### [facility] [address] Glucose Ql (U) Normal Normal Normal [facility] Comment on above: Order Comment: Name Collection Type:: Clean-Voided Midstream Performed By: #### C BC, MG, CMP, ESR, LIPASE, TSH3 #### [facility] [address] Hyaline Casts,Urine None Seen Normal 0-1 [facility] Comment on above: Order Comment: Name Collection Type:: Clean-Voided Midstream Performed By: #### C BC, MG, CMP, ESR, LIPASE, TSH3 #### [facility] [address] [place] [address] Ketones Ql (U) 1+ High Negative [facility] Comment on above: Order Comment: Name Collection Type:: Clean-Voided Midstream Performed By: #### C BC, MG, CMP, ESR, LIPASE, TSH3 #### [facility] [address] Leukocyte esterase Test strip Ql (U) 4+ High Negative [facility] Comment on above: Order Comment: Name Collection Type:: Clean-Voided Midstream Performed By: #### C BC, MG, CMP, ESR, LIPASE, TSH3 #### [facility] [address] [place] [address] Nitrite,Urine Positive High Negative [facility] Comment on above: Order Comment: Name Collection Type:: Clean-Voided Midstream Performed By: #### C BC, MG, CMP, ESR, LIPASE, TSH3 #### [facility] [address] [place] [address] Occult Blood,Urine Trace High Negative [facility] Comment on above: Order Comment: Name Collection Type:: Clean-Voided Midstream Performed By: #### C BC, MG, CMP, ESR, LIPASE, TSH3 #### [facility] [address] [place] [address] Other Casts,Urine None Seen Normal None Seen [facility] Comment on above: Order Comment: Name Collection Type:: Clean-Voided Midstream Performed By: #### C BC, MG, CMP, ESR, LIPASE, TSH3 #### [address] pH (U) 6.0 [pH] Normal 5.0-9.0 [facility] Comment on above: Order Comment: Name Collection Type:: Clean-Voided Midstream Performed By: #### C BC, MG, CMP, ESR, LIPASE, TSH3 #### [address] Protein (U) [Mass/Vol] 30 mg/dL High Negative Fi [facility] Comment on above: Order Comment: Name Collection Type:: Clean-Voided Midstream Performed By: #### C BC, MG, CMP, ESR, LIPASE, TSH3 #### [address] RBC,Urine 10-19 High 0-4 [facility] Comment on above: Order Comment: Name Collection Type:: Clean-Voided Midstream Performed By: #### C BC, MG, CMP, ESR, LIPASE, TSH3 #### [address] Specificy [place],Urine 1.020 Normal 1.001-1.03 0 [facility] Comment on above: Order Comment: Name Collection Type:: Clean-Voided Midstream Performed By: #### C BC, MG, CMP, ESR, LIPASE, TSH3 #### [address] Squamous Epithelial Cell,Urine 10-19 High 0-2 [facility] Comment on above: Order Comment: Name Collection Type:: Clean-Voided Midstream Performed By: #### C BC, MG, CMP, ESR, LIPASE, TSH3 #### [address] Urobilinogen,Urine Normal Normal Normal [facility] Comment on above: Order Comment: Name Collection Type:: Clean-Voided Midstream Performed By: #### C BC, MG, CMP, ESR, LIPASE, TSH3 #### [address] WBC,Urine Innumerable High 0-4 [facility] Comment on above: Order Comment: Name Collection Type:: Clean-Voided Midstream Performed By: #### C BC, MG, CMP, ESR, LIPASE, TSH3 #### [facility] [address] Eosinophils Auto (Bld) [#/Vo l]Ordered By: Dominik Vanegas on 03-27-2022 Eosinophils (Bld) [#/Vol] 0.0 10*3/uL 0.0-0.45 [facility] Eosinophils/100 WBC Auto (Bl d)Ordered By: Dominik Vanegas on 03-27-2022 Eosinophils/100 WBC (Bld) 0.3 % . [facility] Erythrocyte distribution wid th Auto (RBC) [Ratio]Ordered By: Dominik Vanegas on 03-27-2022 Erythrocyte distribution width (RBC) [Ratio] 13.2 % 11.9-15.3 [facility] Estimated glomerular filtrat ion rate (GFR) non- AmericanOrdered By: Dominik Vanegas on 03-27-2022 GFR/1.73 sq M.predicted among non-blacks MDRD (S/P/Bld) [Vol rate/Area] > 60 mL/Min [facility] Globulin Calc (S) [Mass/Vol] Ordered By: Dominik Vanegas on 03-27-2022 Globulin (S) [Mass/Vol] 2.9 g/dL [facility] HCG ( test) [place].rapi d Ql (U)Ordered By: Dominik Vanegas on 03-27-2022 HCG ( test) Ql (U) Negative [facility] HCG,Urineon 03-27-2022 Beta HCG ( test) Ql (U) Negative Normal [facility] Comment on above: Order Comment: Name Collection Type:: Clean-Voided Midstream Result Comment: PERF ORMED BY: [place] [address] PATHOLOGIST CRACK OFF PERSON RADHA GARCIA M.D. Performed By: #### C BC, MG, CMP, ESR, LIPASE, TSH3 #### [facility] [address] [place] [address] Hematocrit Auto (Bld) [Volum e fraction]Ordered By: Dominik Vanegas on 03-27-2022 Hematocrit (Bld) [Volume fraction] 29.0 % 34.0-46.4 [facility] Ketones Auto test strip (U) [Mass/Vol]Ordered By: Dominik Vanegas on 03-27-2022 Ketones (U) [Mass/Vol] 1+ [facility] and C hemistry - challengeOrdered By: Dominik Vanegas on 03-27-2022 Lipase [Catalytic activity/Vol] 31.0 U/L [facility] - CoagulationOrde red By: Dominik Vanegas on 03-27-2022 PT Coag (PPP) [Time] 12.4 s 9.0-12.9 [facility] - Hematology and Cell countsOrdered By: Dominik Vanegas on 03-27-2022 Nucleated RBC/100 WBC (Bld) [Ratio] 0.1 % 0-0.5 [facility] Lipaseon 03-27-2022 Lipase [Catalytic activity/Vol] 31.0 U/L Normal [facility] Comment on above: Result Comment: PERF ORMED BY: [facility] [address] [place] [address] PATHOLOGIST CRACK OFF PERSON RADHA GARCIA M.D. Performed By: #### C BC, MG, CMP, ESR, LIPASE, TSH3 #### [facility] [address] Lymphocytes Auto (Bld) [#/Vo l]Ordered By: Dominik Vanegas on 03-27-2022 Lymphocytes (Bld) [#/Vol] 2.9 10*3/uL 1.00-4.8 [facility] Lymphocytes/100 WBC Auto (Bl d)Ordered By: Dominik Vanegas on 03-27-2022 Lymphocytes/100 WBC (Bld) 24.8 % . [facility] MCH Auto (RBC) [Entitic mass ]Ordered By: Dominik Vanegas on 03-27-2022 MCH (RBC) [Entitic mass] 28.8 pg 24.7-34.3 [facility] MCHC Auto (RBC) [Mass/Vol]Or dered By: Dominik Vanegas on 03-27-2022 MCHC (RBC) [Mass/Vol] 33.7 g/dL 32.0-35.0 [facility] MCV Auto (RBC) [Entitic vol] Ordered By: Dominik Vanegas on 03-27-2022 MCV (RBC) [Entitic vol] 85.3 fL 80-100 [facility] Monocytes Auto (Bld) [#/Vol] Ordered By: Dominik Vanegas on 03-27-2022 Monocytes (Bld) [#/Vol] 0.8 10*3/uL 0.0-0.8 [facility] Monocytes/100 WBC Auto (Bld) Ordered By: Dominik Vanegas on 03-27-2022 Monocytes/100 WBC (Bld) 6.6 % . [facility] Neutrophils Auto (Bld) [#/Vo l]Ordered By: Dominik Vanegas on 03-27-2022 Neutrophils (Bld) [#/Vol] 7.9 10*3/uL 1.8-7.7 [facility] Neutrophils/100 WBC Auto (Bl d)Ordered By: Dominik Vanegas on 03-27-2022 Neutrophils/100 WBC (Bld) 67.9 % . [facility] Nitrite Test strip Ql (U)Ord ered By: Dominik Vanegas on 03-27-2022 Nitrite Ql (U) Positive Negative [facility] No Panel InformationOrdered By: Dominik Vanegas on 03-27-2022 Estimated GFR () > 60 mL/Min [facility] Comment on above: GFR estimated refere nce range: According to KDOQI guidelines, <60 ml/min/1.73m2 is sufficient to diagnose a patient with chronic kidney disease. Pharmacy Creatinine Clearance (Chem 75.74 [facility] Partial Thromboplastin Timeo n 03-27-2022 aPTT Coag (Bld) [Time] 27.8 s Normal 25.1-36.5 [facility] Comment on above: Result Comment: PERF ORMED BY: [facility] [address] [place] [address] PATHOLOGIST CRACK OFF PERSON RADHA GARCIA M.D. Performed By: #### L IPASE, PT, CBC, PTT, CMP #### [facility] [address] Platelet mean volume Auto (B ld) [Entitic vol]Ordered By: Dominik Vanegas on 03-27-2022 Platelet mean volume (Bld) [Entitic vol] 8.0 fL 6.3-10.7 [facility] Platelet poor plasma interna tional normalized ratio (INR) by coagulation assay (relatOrdered By: Dominik Vanegas on 03-27-2022 INR Coag (PPP) [Relative time] 1.1 {INR} [facility] Comment on above: INR Therapeutic Rang [...] 03-27-2022 Platelets (Bld) [#/Vol] 471 10*3/uL 150-450 [facility] Protein Auto test strip (U) [Mass/Vol]Ordered By: Dominik Vanegas on 03-27-2022 Protein (U) [Mass/Vol] 30 mg/dL Negative Fi [facility] Protein [Mass/volume] in Ser um or PlasmaOrdered By: Dominik Vanegas on 03-27-2022 Protein [Mass/Vol] 6.4 g/dL 6.1-7.9 [facility] Prothrombin Time INRon 03-27 INR Coag (PPP) [Relative time] 1.1 {INR} Normal [facility] Comment on above: Result Comment: INR [...] L IPASE, PT, CBC, PTT, CMP #### [facility] [address] [place] [id number] [place] PT Coag (PPP) [Time] 12.4 s Normal 9.0-12.9 [place] Comment on above: Performed By: #### L IPASE, PT, CBC, PTT, CMP #### [facility] [address] [place] [id number] [facility] RBC Auto (Bld) [#/Vol]Ordere d By: Dominik Vanegas on 03-27-2022 RBC (Bld) [#/Vol] 3.40 10*6/uL 3.60-5.00 [facility] Serum or plasma alanine carlos otransferase measurement without P-5'-P (enzymatic activiOrdered By: Dominik Vanegas on 03-27-2022 ALT No additional P-5'-P [Catalytic activity/Vol] 34 U/L [facility] Serum or plasma albumin/glob ulin mass ratioOrdered By: Dominik Vanegas on 03-27-2022 Albumin/Globulin [Mass ratio] 1.2 {ratio} [facility] Serum or plasma alkaline belkys sphatase measurement (enzymatic activity/volume)Ordered By: Dominik Vanegas on 03-27-2022 ALP [Catalytic activity/Vol] 69 U/L 32-92 [facility] Serum or plasma anion gap de terminationOrdered By: Domiink Vanegas on 03-27-2022 Anion gap [Moles/Vol] 12.7 mmol/L 6.0-15.0 [facility] Serum or plasma aspartate am inotransferase measurement (enzymatic activity/volume)Ordered By: Dominik Vanegas on 03-27-2022 AST [Catalytic activity/Vol] 22 U/L 1042 [facility] Serum or plasma calcium mariana urement (mass/volume)Ordered By: Dominik Vanegas on 03-27-2022 Calcium [Mass/Vol] 9.1 mg/dL 8.2-10.2 [facility] Serum or plasma chloride jaqui surement (moles/volume)Ordered By: Dominik Vanegas on 03-27-2022 Chloride [Moles/Vol] 98 mmol/L 95-114 [place] Serum or plasma glucose mariana urement (mass/volume)Ordered By: Dominik Vanegas on 03-27-2022 Glucose [Mass/Vol] 111 mg/dL 70-100 [facility] Comment on above: ADA recommended refe rence rangeRandom Glucose Reference Range is dependent on time and content of last meal. Glucose of more than 200 mg/dL in a nonstressed, ambulatory subject supports the diagnosis of Diabetes Mellitus. Serum or plasma potassium me asurement (moles/volume)Ordered By: Dominik Vanegas on 03-27-2022 Potassium [Moles/Vol] 3.0 mmol/L 3.5-5.1 [facility] Serum or plasma sodium measu rement (moles/volume)Ordered By: Dominik Vanegas on 03-27-2022 Sodium [Moles/Vol] 132 mmol/L 136-146 [facility] Serum or plasma total biliru bin measurement (mass/volume)Ordered By: Dominik Vanegas on 03-27-2022 Bilirubin [Mass/Vol] 0.3 mg/dL 0.3-1.2 [place] Serum or plasma total carbon dioxide measurement (moles/volume)Ordered By: Dominik Vanegas on 03-27-2022 CO2 [Moles/Vol] 24.3 mmol/L 22.0-30.0 [facility] Serum or plasma urea nitroge n measurement (mass/volume)Ordered By: Dominik Vanegas on 03-27-2022 Urea nitrogen [Mass/Vol] 6 mg/dL 9-23 [facility] Specific gravity Auto test s trip (U) [Rel density]Ordered By: Dominik Vanegas on 03-27-2022 Specific gravity (U) [Rel density] 1.020 1.001-1.03 0 [facility] Squamous epithelial cells de tection in urine sediment by light microscopyOrdered By: Dominik Vangeas on 03-27-2022 Epithelial cells.squamous LM Ql (Urine sed) 04-14 [HPF] 0-2 [facility] Type and Screenon 03-27-2022 ABO and Rh group Nom (Bld) Blood group O Rh(D) positive Normal [facility] Comment on above: Result Comment: PERF ORMED BY: [place] [address] PATHOLOGIST CRACK OFF PERSON RADHA GARCIA M.D. Urine Cultureon 03-27-2022 Bacteria identified Cx Nom (U) ORGANISM: Escherichia coli (ESBL) (O:ESCCOLESBL) [place] Count >100,000 Aerobic DIVYA Charge (NUC86) SUSCEPTIBILITY [...] RESISTANT TO ALL B-LACTAM DRUGS. PERFORMED BY: [place] [address] PATHOLOGIST CRACK OFF PERSON RADHA GARCIA M.D. Normal [facility] Comment on above: Performed By: #### C BC, MG, CMP, ESR, LIPASE, TSH3 #### [address] Urine bacteria detection by automated methodOrdered By: Dominik Vanegas on 03-27-2022 Bacteria Auto Ql (U) 4+ None Seen [place] Urine clarity by refractomet ry automatedOrdered By: Domniik Vanegas on 03-27-2022 Clarity Refractometry automated (U) Cloudy Clear [facility] Urine glucose measurement by automated test strip (mass/volume)Ordered By: Dominik Vanegas on 03-27-2022 Glucose Auto test strip (U) [Mass/Vol] Normal mg/dL Normal [facility] Urine hemoglobin detection b y automated test stripOrdered By: Dominik Vanegas on 03-27-2022 Hemoglobin Auto test strip Ql (U) Trace Negative [facility] Urine leukocyte esterase det ection by automated test stripOrdered By: Dominik Vanegas on 03-27-2022 Leukocyte esterase Auto test strip Ql (U) 4+ Negative [facility] Urobilinogen Auto test strip (U) [Mass/Vol]Ordered By: Dominik Vanegas on 03-27-2022 Urobilinogen (U) [Mass/Vol] Normal mg/dL Normal [facility] pH Auto test strip (U)Ordere d By: Dominik Vanegas on 03-27-2022 pH (U) 6.0 [pH] 5.0-9.0 [facility] XR KUB 1 VIEWon 02-16-2022 XR [...] DEVYN DIETZ Date: 2022-02-16 18:37 Normal [facility] PREG HCG QUALon 01-07-2022 , QUAL Negative Normal NEGATIVE [facility] Comment on above: Performed By: #### P REG #### [facility] [address] [place] [address] Dr. Tori Thomas XR KUB 1 VIEWon [...] DEVYN DIETZ Date: 2022-01-07 10:45 Normal [facility] CBC AUTO DIFFon 01-06-2022 BASO # 0.0 103/ul Normal 0.0-0.1 [facility] Comment on above: Performed By: #### U AMIC #### [facility] [address] [address] [address] Tori Thomas Basophils/100 WBC (Bld) 0.3 % Normal 0.2-2.0 [facility] Comment on above: Performed By: #### U AMIC #### [facility] [address] [address] [address] Tori Thomas EO # 0.1 103/ul Normal 0.0-0.7 [facility] Comment on above: Performed By: #### U AMIC #### [facility] [address] [address] [address] Tori Thomas Eosinophils/100 WBC (Bld) 0.9 % Normal 0.9-7.0 [facility] Comment on above: Performed By: #### U AMIC #### [facility] [address] [address] [address] Tori Thomas Erythrocyte distribution width (RBC) [Ratio] 17.7 % Critically high 11.0-15.0 [facility] Comment on above: Performed By: #### U AMIC #### [facility] [address] [address] [address] Tori Thomas Hematocrit (Bld) [Volume fraction] 35.8 % Critically low 36.0-48.0 [facility] Comment on above: Performed By: #### U AMIC #### [facility] [address] [address] [address] Tori Thomas Hemoglobin (Bld) [Mass/Vol] 11.7 g/dL Critically low 12.0-16.0 [facility] Comment on above: Performed By: #### U AMIC #### [facility] [address] [place] [address] Dr. Tori Thomas IG # 0.06 10e3/ul Critically high 0.00-0.03 [facility] Comment on above: Performed By: #### U AMIC #### [facility] [address] [place] [address] Dr. Tori Thomas IG % 0.6 % Critically high 0.0-0.5 [facility] Comment on above: Performed By: #### U AMIC #### [facility] [address] [place] [address] Dr. Tori Thomas LYMPH # 2.0 103/ul Normal 1.2-3.8 [facility] Comment on above: Performed By: #### U AMIC #### [facility] [address] [place] [address] Dr. Tori Thomas Lymphocytes/100 WBC (Bld) 19.8 % Critically low 20.5-60.0 [facility] Comment on above: Performed By: #### U AMIC #### [facility] [address] [place] [address] Dr. Tori Thomas MANUAL DIFF REQ NO Normal [facility] Comment on above: Performed By: #### U AMIC #### [facility] [address] [place] [address] Dr. Tori Thomas MCH (RBC) [Entitic mass] 29.5 pg Normal 26.7-34.0 [facility] Comment on above: Performed By: #### U AMIC #### [facility] [address] [place] [address] Dr. Tori Thomas MCHC (RBC) [Mass/Vol] 32.7 g/dL Normal 29.9-35.2 [facility] Comment on above: Performed By: #### U AMIC #### [facility] [address] [place] [address] Dr. Tori Thomas MCV (RBC) [Entitic vol] 90.2 fL Normal 81.0-99.0 [facility] Comment on above: Performed By: #### U AMIC #### [facility] [address] [place] [address] Dr. Tori Thomas MONO # 0.6 103/ul Normal 0.3-0.8 [facility] Comment on above: Performed By: #### U AMIC #### [facility] [address] [address] [address] Tori Thomas Monocytes/100 WBC (Bld) 5.9 % Normal 1.7-12.0 [facility] Comment on above: Performed By: #### U AMIC #### [facility] [address] [place] [address] Dr. Tori Thomas NEUT # 7.2 103/ul Critically high 1.4-6.5 [facility] Comment on above: Performed By: #### U AMIC #### [facility] [address] [place] [address] Dr. Tori Thomas Neutrophils/100 WBC (Bld) 72.5 % Normal 43.0-75.0 [facility] Comment on above: Performed By: #### U AMIC #### [facility] [address] [place] [address] Dr. Tori Thomas Platelet mean volume (Bld) [Entitic vol] 9.5 fL Normal 9.5-13.5 [facility] Comment on above: Performed By: #### U AMIC #### [facility] [address] [place] [address] Dr. Tori Thomas PLT 319 103/ul Normal 150-450 [facility] Comment on above: Performed By: #### U AMIC #### [facility] [address] [place] [address] Dr. Tori Thomas RBC 3.97 106/ul Critically low 4.20-5.40 [facility] Comment on above: Performed By: #### U AMIC #### [facility] [address] [place] [address] Dr. Tori Thomas WBC 10.0 103/ul Normal 4.0-11.0 [facility] Comment on above: Performed By: #### U AMIC #### [facility] [address] [address] [address] Tori Thomas PROF CHEM 8 (BAS METB)on Anion gap [Moles/Vol] 13.7 mmol/L Normal [facility] Comment on above: Performed By: #### P T, PTT #### [facility] [address] [place] [address] Dr. Tori Thomas Calcium [Mass/Vol] 9.1 mg/dL Normal 8.5-10.1 [facility] Comment on above: Performed By: #### P T, PTT #### [facility] [address] [place] [address] Dr. Tori Thomas Chloride [Moles/Vol] 104 mmol/L Normal 98-107 [facility] Comment on above: Performed By: #### P T, PTT #### [facility] [address] [place] [address] Dr. Tori Thomas CO2 [Moles/Vol] 23.0 mmol/L Normal 21.0-32.0 [facility] Comment on above: Performed By: #### P T, PTT #### [facility] [address] [place] [address] Dr. Tori Thomas Creatinine [Mass/Vol] 0.98 mg/dL Normal 0.55-1.02 [facility] Comment on above: Performed By: #### P T, PTT #### [facility] [address] [place] [address] Dr. Tori Thomas EGFR-AF KYRGYZ >60 Normal >=60 [facility] Comment on above: Performed By: #### P T, PTT #### [facility] [address] [place] [address] Dr. Tori Thomas EGFR-NON AF KYRGYZ >60 Normal >=60 [facility] Comment on above: Performed By: #### P T, PTT #### [facility] [address] [place] [address] Dr. Tori Thomas Glucose [Mass/Vol] 109 mg/dL Critically high 74-106 [facility] Comment on above: Performed By: #### P T, PTT #### [facility] [address] [place] [address] Dr. Tori Thomas Potassium [Moles/Vol] 3.7 mmol/L Normal 3.5-5.1 [facility] Comment on above: Performed By: #### P T, PTT #### [facility] [address] [place] [address] Dr. Tori Thomas Sodium [Moles/Vol] 137 mmol/L Normal 136-145 [facility] Comment on above: Performed By: #### P T, PTT #### [facility] [address] [place] [address] Dr. Tori Thomas Urea nitrogen [Mass/Vol] 12.0 mg/dL Normal 7.0-18.0 [facility] Comment on above: Performed By: #### P T, PTT #### [facility] [address] [place] [address] Dr. Tori Thomas Urea nitrogen/Creatinine [Mass ratio] 12.2 mg/mg Normal [facility] Comment on above: Performed By: #### P T, PTT #### [facility] [address] [place] [address] Dr. Tori Thomas PROTIMEon 01-06-2022 INR Coag (PPP) [Relative time] 0.94 {INR} Normal [facility] Comment on above: Performed By: #### P T, PTT #### [facility] [address] [place] [address] Dr. Tori Thomas INR GUIDELINES SEE BELOW Normal [facility] Comment on above: Result Comment: APRYL RED INR: 2.0 - 3.0 CONDITIONS NOT LISTED BELOW 2.5 - 3.5 FOR PROSTHETIC HEART VALVE REPLACEMENT 2.5 - 3.5 RECURRENT THROMBOSIS Performed By: #### P T, PTT #### [facility] [address] [place] [address] Dr. Tori Thomas PT Coag (PPP) [Time] 10.2 s Normal 9.0-11.6 [facility] Comment on above: Performed By: #### P T, PTT #### [facility] [address] [place], [place] [address] Dr. Tori Thomas PTTon 01-06-2022 aPTT Coag (Bld) [Time] 24.2 s Normal 22.3-36.2 [facility] Comment on above: Performed By: #### P T, PTT #### [facility] [address], [place] [address] ABD/PELVIS WO CONon [...] by: DEVYN DIETZ Date: 2021-12-23 08:35 Normal [facility] Vital Signs Date Time Vital Sign Value Performing Clinician Facility 10-06-2022 14:53-0400 Blood Pressure Location TISH FAVIAN [facility] 10-06-2022 14:53-0400 Diastolic blood pressure 74 mm[Hg] TISH FAVIAN [facility] 10-06-2022 14:53-0400 Heart rate 68 /min TISH FAVIAN [facility] 10-06-2022 14:53-0400 Respiratory rate 16 /min TISH FAVIAN [facility] 10-06-2022 14:53-0400 Systolic blood pressure 120 mm[Hg] TISH FAVIAN [facility] 10-01-2022 10:45-0400 65 1 Chandrika M Hoy Work Phone: [facility] [address] [place] Work Phone: Comment on above: [id number] 09-03-2022 13:10-0500 Body height 160.02 cm Chandrika M Hoy Work Phone: [facility] [address] [place] Work Phone: 09-03-2022 13:10-0500 Body mass index (BMI) [Ratio] 22.85 kg/m2 Chandrika M Hoy Work Phone: [facility] [address] DO Work Phone: 09-03-2022 13:10-0500 Body surface area Derived from formula 1.6 m2 Chandrika M Hoy Work Phone: [facility] [address] DO Work Phone: 09-03-2022 13:10-0500 Body weight 58.51 kg Chandrika M Hoy Work Phone: [facility] [address] DO Work Phone: 09-03-2022 13:10-0500 Diastolic blood pressure 60 mm[Hg] Chandrika Holland Hoy Work Phone: [facility] [address] DO Work Phone: 09-03-2022 13:10-0500 Heart rate 82 /min Chandrika Holland Hoy Work Phone: [facility] [address] DO Work Phone: 09-03-2022 13:10-0500 Systolic blood pressure 102 mm[Hg] Chandrika Holland Hoy Work Phone: [facility] [address] [place] Work Phone: 08-17-2022 14:55-0500 Diastolic blood pressure 78 mm[Hg] MD Chandrika Lee Work Phone: [facility] 08-17-2022 14:55-0500 Heart rate 77 /min MD Chandrika Lee Work Phone: [facility] 08-17-2022 14:55-0500 Respiratory rate 16 /min MD Chandrika Lee Work Phone: [facility] 08-17-2022 14:55-0500 SaO2% (BldA) [Mass fraction] 96 % MD Chandrika Lee Work Phone: [facility] 08-17-2022 14:55-0500 Systolic blood pressure 119 mm[Hg] MD Chandrika Lee Work Phone: [facility] 08-17-2022 12:57-0500 Body height 160.02 cm MD Cahndrika Lee Work Phone: [facility] 08-17-2022 12:57-0500 Body mass index (BMI) [Ratio] 22.6 kg/m2 MD Chandrika Lee Work Phone: [facility] 08-17-2022 12:57-0500 Body weight 58.05 kg MD Chandrika Lee Work Phone: [facility] 08-17-2022 11:43-0500 Body temperature 98.7 [degF] MD Chandrika Lee Work Phone: [facility] 08-02-2022 15:15-0500 Diastolic blood pressure 55 mm[Hg] MD Chandrika Lee Work Phone: [facility] 08-02-2022 15:15-0500 Heart rate 96 /min MD Chandrika Lee Work Phone: [facility] 08-02-2022 15:15-0500 Respiratory rate 16 /min MD Chandrika Lee Work Phone: [facility] 08-02-2022 15:15-0500 SaO2% (BldA) [Mass fraction] 95 % MD Chandrika Lee Work Phone: [facility] 08-02-2022 15:15-0500 Systolic blood pressure 100 mm[Hg] MD Chandrika Lee Work Phone: [facility] 08-02-2022 14:33-0500 Body mass index (BMI) [Ratio] 24.5 kg/m2 MD Chandrika Lee Work Phone: [facility] 08-02-2022 11:15-0500 Body height 160.02 cm MD Chandrika Lee Work Phone: [facility] 08-02-2022 11:15-0500 Body weight 63 kg MD Chandrika Lee Work Phone: [facility] 08-02-2022 10:21-0500 Body temperature 97.9 [degF] MD Chandrika Lee Work Phone: [facility] 07-26-2022 11:06-0500 Diastolic blood pressure 64 mm[Hg] Chandrika Farahy Work Phone: [facility] [address] Work Phone: 07-26-2022 11:06-0500 Systolic blood pressure 100 mm[Hg] Chandrika Farahy Work Phone: [facility] [address] Work Phone: 07-26-2022 11:05-0500 Body height 160.02 cm Chandrika M Hoy Work Phone: [facility] [address] DO Work Phone: 07-26-2022 11:05-0500 Body mass index (BMI) [Ratio] 24.93 kg/m2 Chandrika M Hoy Work Phone: [facility] [address] Work Phone: 07-26-2022 11:05-0500 Body surface area Derived from formula 1.67 m2 Chandrika M Hoy Work Phone: [facility] [address] DO Work Phone: 07-26-2022 11:05-0500 Body weight 63.84 kg Chandrika M Hoy Work Phone: [facility] [address] Work Phone: 07-26-2022 11:05-0500 Diastolic blood pressure 70 mm[Hg] Chandrika M Hoy Work Phone: [facility] [address] Work Phone: 07-26-2022 11:05-0500 Heart rate 50 /min Chandrika M Hoy Work Phone: [facility] [address] DO Work Phone: 07-26-2022 11:05-0500 Systolic blood pressure 104 mm[Hg] Chandrika M Hoy Work Phone: [facility] [address] [place] Work Phone: 06-14-2022 16:09-0500 Diastolic blood pressure 61 mm[Hg] Chandrika Hoy Work Phone: [facility] 06-14-2022 16:09-0500 Heart rate 79 /min Chandrika Hoy Work Phone: [facility] 06-14-2022 16:09-0500 Respiratory rate 16 /min MD Chandrika Lee Work Phone: [facility] 06-14-2022 16:09-0500 SaO2% (BldA) [Mass fraction] 97 % MD Chandrika Lee Work Phone: [facility] 06-14-2022 16:09-0500 Systolic blood pressure 119 mm[Hg] MD Chandrika Lee Work Phone: [facility] 06-14-2022 13:41-0500 Body height 160.02 cm MD Chandrika Lee Work Phone: [facility] 06-14-2022 13:41-0500 Body temperature 97.9 [degF] MD Chandrika Lee Work Phone: [facility] 06-14-2022 13:41-0500 Body weight 61.23 kg MD Chandrika Lee Work Phone: [facility] 06-05-2022 04:08-0500 Body temperature 97.9 [degF] MD Chandrika Lee Work Phone: [facility] 06-05-2022 04:08-0500 Diastolic blood pressure 66 mm[Hg] MD Chandrika Lee Work Phone: [facility] 06-05-2022 04:08-0500 Heart rate 77 /min MD Chandrika Lee Work Phone: [facility] 06-05-2022 04:08-0500 Respiratory rate 18 /min MD Chandrika Lee Work Phone: [facility] 06-05-2022 04:08-0500 SaO2% (BldA) [Mass fraction] 96 % MD Chandrika Lee Work Phone: [facility] 06-05-2022 04:08-0500 Systolic blood pressure 123 mm[Hg] MD Chandrika Lee Work Phone: [facility] 05-30-2022 14:33-0500 Body temperature 98.3 [degF] MD Chandrika Lee Work Phone: [facility] 05-30-2022 14:33-0500 Diastolic blood pressure 72 mm[Hg] MD Chandrika Lee Work Phone: [facility] 05-30-2022 14:33-0500 Heart rate 93 /min MD Chandrika Lee Work Phone: [facility] 05-30-2022 14:33-0500 Respiratory rate 18 /min MD Chandrika Lee Work Phone: [facility] 05-30-2022 14:33-0500 SaO2% (BldA) [Mass fraction] 97 % MD Chandrika Lee Work Phone: [facility] 05-30-2022 14:33-0500 Systolic blood pressure 114 mm[Hg] MD Chandrika Lee Work Phone: [facility] 05-30-2022 11:29-0500 Body height 160.02 cm MD Chandrika Lee Work Phone: [facility] 05-30-2022 11:29-0500 Body weight 58 kg MD Chandrika Lee Work Phone: [facility] 05-12-2022 16:00-0500 Diastolic blood pressure 64 mm[Hg] MD Chandrika Lee Work Phone: [facility] 05-12-2022 16:00-0500 Heart rate 89 /min MD Chandrika Lee Work Phone: [facility] 05-12-2022 16:00-0500 Respiratory rate 18 /min MD Chandrika Lee Work Phone: [facility] 05-12-2022 16:00-0500 SaO2% (BldA) [Mass fraction] 97 % MD Chandrika Lee Work Phone: [facility] 05-12-2022 16:00-0500 Systolic blood pressure 118 mm[Hg] MD Chandrika Lee Work Phone: [facility] 05-11-2022 20:00-0500 Body temperature 97.6 [degF] MD Chandrika Lee Work Phone: [facility] 05-11-2022 05:52-0500 Body weight 57.9 kg MD Chandrika Lee Work Phone: [facility] 05-10-2022 12:05-0500 Body height 160.02 cm MD Chandrika Lee Work Phone: [facility] 04-05-2022 08:28-0400 Body temperature 97.9 [degF] MD Chandrika Lee Work Phone: [facility] 04-05-2022 08:28-0400 Diastolic blood pressure 58 mm[Hg] MD Chandrika Lee Work Phone: [facility] 04-05-2022 08:28-0400 Heart rate 79 /min MD Chandrika Lee Work Phone: [facility] 04-05-2022 08:28-0400 Respiratory rate 18 /min MD Chandrika Lee Work Phone: [facility] 04-05-2022 08:28-0400 SaO2% (BldA) [Mass fraction] 99 % MD Chandrika Lee Work Phone: [facility] 04-05-2022 08:28-0400 Systolic blood pressure 93 mm[Hg] MD Chandrika Lee Work Phone: [facility] 04-02-2022 11:24-0400 Body temperature 98.8 [degF] MD Chandrika Lee Work Phone: [facility] 04-02-2022 11:24-0400 Diastolic blood pressure 58 mm[Hg] MD Chandrika Lee Work Phone: [facility] 04-02-2022 11:24-0400 Heart rate 71 /min MD Chandrika Lee Work Phone: [facility] 04-02-2022 11:24-0400 Respiratory rate 18 /min MD Chandrika Lee Work Phone: [facility] 04-02-2022 11:24-0400 SaO2% (BldA) [Mass fraction] 98 % MD Chandrika Lee Work Phone: [facility] 04-02-2022 11:24-0400 Systolic blood pressure 95 mm[Hg] MD Chandrika Lee Work Phone: [facility] 04-02-2022 06:00-0400 Body weight 58.7 kg MD Chandrika Lee Work Phone: [facility] 04-01-2022 10:15-0400 Body height 157.48 cm MD Chandrika Lee Work Phone: [facility] 03-31-2022 14:00-0400 Diastolic blood pressure 62 mm[Hg] MD Chandrika Lee Work Phone: [facility] 03-31-2022 14:00-0400 Heart rate 87 /min MD Chandrika Lee Work Phone: [facility] 03-31-2022 14:00-0400 Respiratory rate 18 /min MD Chandrika Lee Work Phone: [facility] 03-31-2022 14:00-0400 SaO2% (BldA) [Mass fraction] 100 % MD Chandrika Lee Work Phone: [facility] 03-31-2022 14:00-0400 Systolic blood pressure 117 mm[Hg] MD Chandrika Lee Work Phone: [facility] 03-31-2022 11:17-0400 Body height 157.48 cm MD Chandrika Lee Work Phone: [facility] 03-31-2022 11:17-0400 Body temperature 98.1 [degF] MD Chandrika Lee Work Phone: [facility] 03-31-2022 11:17-0400 Body weight 58.96 kg MD Chandrika Lee Work Phone: [facility] 03-27-2022 15:41-0400 Diastolic blood pressure 70 mm[Hg] MD Chandrika Lee Work Phone: [facility] 03-27-2022 15:41-0400 Heart rate 84 /min MD Chandrika Lee Work Phone: [facility] 03-27-2022 15:41-0400 Respiratory rate 16 /min MD Chandrika Lee Work Phone: [facility] 03-27-2022 15:41-0400 SaO2% (BldA) [Mass fraction] 98 % MD Chandrika Lee Work Phone: [facility] 03-27-2022 15:41-0400 Systolic blood pressure 119 mm[Hg] MD Chandrika Lee Work Phone: [facility] 03-27-2022 11:37-0400 Body height 157.48 cm MD Chandrika Lee Work Phone: [facility] 03-27-2022 11:37-0400 Body temperature 98.2 [degF] MD Chandriak Lee Work Phone: [facility] 03-27-2022 11:37-0400 Body weight 58.96 kg MD Chandrika Lee Work Phone: [facility] 12-08-2021 10:58-0400 Blood Pressure Location TISH KENDALL [facility] 12-08-2021 10:58-0400 Diastolic blood pressure 82 mm[Hg] TISH HARVEYRY [facility] 12-08-2021 10:58-0400 Heart rate 81 /min TISH FAVIAN [facility] 12-08-2021 10:58-0400 Systolic blood pressure 103 mm[Hg] [facility] Date Encounter Type Care Provider Facility Start: 05-02-2024 End: 05-02-2024 ambulatory Vancalista SCHRADER Facility: [facility] Start: 05-02-2024 End: 05-02-2024 Patient encounter procedure Van SCHRADER [facility] Start: 04-10-2024 ambulatory Van SCHRADER Facili ty:[facility] Start: 06-03-2023 End: 06-03-2023 ambulatory Van R SCHRADER Facility:CD:[id number] Start: 05-23-2023 End: 05-23-2023 ambulatory Van SCHRADER Facility:CD:[id number] Start: 05-10-2023 End: 05-10-2023 ambulatory TISH KENDALL [facility] Start: 04-12-2023 End: 04-12-2023 Patient encounter procedure TISH KENDALL [facility] Start: 11-15-2022 End: 11-16-2022 Emergency department patient visit Chandrika Lee Facility:[facility] Start: 11-15-2022 End: 11-15-[address] CHANDRIKA LEE . Facility: Start: 10-11-2022 Chart Update Chandrika Lee Work Phone: [facility] 250 DO Work Phone: Start: 10-06-2022 End: 10-06-2022 Patient encounter procedure TISH KENDALL [facility] Start: 10-01-2022 Patient encounter procedure Chandrika Lee Work Phone: [facility] [address] [place] Work Phone: Start: 10-01-2022 ambulatory PERLITA LAWRENCE Facility:[id number] Start: 09-06-2022 End: 09-06-2022 Patient encounter procedure Van Burroughs RACIEL [facility] Start: 09-03-2022 Office outpatient vi sit 15 minutes Chandrika Lee Work Phone: [facility] [address] DO Work Phone: Start: 09-03-2022 ambulatory Perlita Howard Facility:[id number] Start: 08-17-2022 End: 08-17-2022 ambulatory Chandrika Lee Facility:[facility] Start: 08-17-2022 End: 08-17-2022 Admission to same day surgery center MD Chand[facility] [place] Start: 08-17-2022 End: 08-17-2022 ambulatory MD Chandrika Lee Work Phone: [facility] Work Phone: Start: 08-11-2022 End: 08-12-[address] CHANDRIKA LEE . Facility: Start: 08-02-2022 End: 08-02-2022 ambulatory Carter Lewis Facility:[facility] Start: 08-02-2022 End: 08-02-2022 Admission to same day surgery center MD Chandrika Lee [facility] [place] Start: 08-02-2022 End: 08-02-2022 ambulatory MD Chandrika Lee Work Phone: [facility] Work Phone: Start: 07-26-2022 Patient encounter procedure Chandrika Lee Work Phone: [facility] [address] DO Work Phone: Start: 07-26-2022 ambulatory Perlita Lawrence Facility:[id number] Start: 07-19-2022 End: 07-19-2022 ambulatory Carter Lewis Facility:[facility] Start: 07-19-2022 End: 07-19-2022 ambulatory MD Chandrika Lee Work Phone: [facility] Work Phone: Start: 07-19-2022 End: 07-19-2022 Patient encounter procedure MD Chandrika Lee Work Phone: [facility] Work Phone: Start: 06-14-2022 End: 06-14-2022 ambulatory Be Heike Brian Facility:[facility] Start: 06-14-2022 End: 06-14-2022 Admission to same day surgery center MD Chandrika Lee Work Phone: [facility] Start: 06-14-2022 End: 06-14-2022 ambulatory MD Chandrika Lee Work Phone: [facility] Work Phone: Start: 06-05-2022 End: 06-05-2022 ambulatory Chandrika Lee Facility:[facility] Start: 06-05-2022 End: 06-05-2022 Discharged Recurring MD Chandrika Lee Work Phone: [facility]-Infusion Therapy - O/P Start: 06-04-2022 End: 06-27-[address] CHANDRIKA LEE . Facility: Start: 05-30-2022 End: 05-30-2022 Emergency department patient visit Chandrika Lee Facility:[facility] Start: 05-30-2022 End: 05-30-2022 Emergency department patient visit MD Chandrika Lee Work Phone: [facility]Emergency [facility] Start: 05-09-2022 End: 05-12-2022 Evaluation and management of inpatient Jessica Akhtar Facility:[facility] Start: 05-09-2022 End: 05-12-2022 Evaluation and management of inpatient MD Chandrika Lee Work Phone: [facility] [place] [facility] Start: 04-29-2022 End: 04-29-2022 Patient encounter procedure TISH KENDALL [facility] Start: 04-16-2022 End: 04-17-[address] CHANDRIKA LEE . Facility:[facility] Start: 04-06-2022 End: 04-06-2022 ambulatory Jessica Akhtar Facility:[facility] Start: 04-06-2022 End: 04-06-2022 ambulatory MD Chandrika Lee Work Phone: [facility] Work Phone: Start: 04-06-2022 End: 04-06-2022 Discharged Recurring MD Chandrika Lee Work Phone: [facility]-Infusion Therapy - O/P Start: 03-31-2022 End: 04-02-2022 ambulatory Jessica Akhtar Facility:[facility] Start: 03-31-2022 End: 04-02-2022 Evaluation and management of inpatient MD Chandrika Lee Work Phone: [facility] Start: 03-27-2022 End: 03-27-2022 Emergency department patient visit Chandrika Lee Facility:[facility] Start: 03-27-2022 End: 03-27-2022 Emergency department patient visit MD Chandrika Lee Work Phone: [facility]Emergency [facility] Start: 02-17-[address] CHANDRIKA LEE . Facili ty:[facility] Start: 02-16-2022 End: 02-17-[address] CHANDRIKA LEE . Facility:[facility] Start: 01-07-2022 Encounter for preprocedural cardiovascular examination DR VAN SCHRADER . [facility] Start: 01-07-2022 Encounter for preprocedural laboratory examination DR VAN SCHRADER . [facility] Start: 01-07-2022 End: 01-07-[address] CHANDRIKA LEE . Facility:[facility] Start: 01-06-2022 End: 01-07-[address] VAN SCHRADER . Facility:[facility] Start: 01-06-2022 End: 01-07-2022 Encounter for preprocedural cardiovascular examination DR VAN SCHRADER . Facility:[facility] Start: 12-22-2021 End: 12-23-[address] DEVNY DIETZ Facility:[facility] Start: 12-14-2021 ambulatory TISH KENDALL Facility :[facility] Start: 12-08-2021 End: 12-08-2021 Patient encounter procedure TISHMARIELA KENDALL [facility] Start: 05-31-2013 End: 05-31-2013 Telephone encounter Praveena (Rn)(Hist) [facility] [place] Comment on above: (apts) Patient encounter status Chandrika Lee Work Phone: [facility] [address] DO Work Phone: Procedures Date Procedure Procedure Detail Performing Clinician Start: 10-01-2022 Echocardiography Liseth Lee Work Phone: Start: 08-17-2022 Hemorrhoidectomy MD Rabia Lee Work Phone: Start: 08-02-2022 Hemorrhoidectomy MD Rabia Lee Work Phone: Start: 06-14-2022 Colonoscopy MD Chandrika Lee Work Phone: Start: 06-04-2022 Antibody screen Jessica stewart Comment on above: Result Comment: PERF ORMED BY: [facility] [address] [place] [address] PATHOLOGIST [employer] OFF PERSON RADHA GARCIA M.D. Start: 05-30-2022 Urine culture MD Liseth Lee Work Phone: Start: 05-30-2022 CT of abdomen and pe lvis without contrast MD Chandrika Lee Work Phone: Start: 05-11-2022 Transvaginal echography MD Chandrika Lee Work Phone: Start: 05-11-2022 Pelvic echography MD Arriaga Work Phone: Start: 05-10-2022 Stool culture for bacteria MD Chandrika Lee Work Phone: Start: 05-09-2022 Antibody screen Jessica stewart Comment on above: Order Comment: Trans fuse now? Y Number of units to transfuse now? 2 Result Comment: PERF ORMED BY: [facility] [address] [facility] [address] [place] [address] PATHOLOGIST [employer] OFF PERSON RADHA GARCIA M.D. Start: 05-09-2022 Urine culture MD Liseth Lee Work Phone: Start: 03-31-2022 Antibody screen Jessica stewart Comment on above: Order Comment: Trans fuse now? Y Number of units to transfuse now? 1 Result Comment: PERF ORMED BY: [facility] [address] [place] [address] PATHOLOGIST [employer] OFF PERSON RADHA GARCIA M.D. Start: 03-27-2022 Antibody screen Jessica stewart Comment on above: Result Comment: PERF ORMED BY: [facility] [address] [place] [address] PATHOLOGIST [employer] OFF PERSON RADHA GARCIA M.D. Start: 03-27-2022 Computed tomography [...] insertio n of ureteric stent TISH KENDALL Cardiac ablation sys tem (physical object) Van SCHRADER section Chandrika M H oy Work Phone: Cholecystectomy TISH RUIZ Cholecystectomy Chandrika Holland Ho y Work Phone: Colonoscopy TISH KENDALL Hemorrhoidectomy Chandrika Holland H oy Work Phone: Hemorrhoids (disorder) VERA KENDALL Lithotripsy Chandrika Holland Hoy Work Phone: SARS Antigen (LFIA) MD Rachel antoine Hoderik Work Phone: Small intestine excision Rabia glas Amalia Hoy Work Phone: Stool culture for bacteria M D Chandrika Hoy Work Phone: Stool culture for bacteria M D Chandrika Hoy Work Phone: Total colonoscopy Chandrika Holland Hoy Work Phone: Comment on above: 2021; Urine culture MD Oquendo Jonel Work Phone: Urine culture MD Chandrika Lee Work Phone: Urine culture MD Oquendo Gaganderik Work Phone: Urine culture MD Oquendo Jonel Work Phone: Plan of Treatment Date Care Activity Detail Author Start: 10-01-2022 ECHO, Provider: GUERDA MITCHELLI ULTRASOUND 01,[id number], Status: Pen, Time: 10:45 AM ECHO, Provider: GUERDA MITCHELLI ULTRASOUND 01,[id number], Status: Pen, Time: 10:45 AM [facility] 250 DO Work Phone: Start: 08-30-2022 FUV, Provider: Perlita Lawrence, Status: Pen, Time: 3:15 PM FUV, Provider: Perlita Lawrence, Status: Pen, Time: 3:15 PM [facility] 250 DO Work Phone: Start: 08-17-2022 End: 08-17-2022 [facility] Start: 08-02-2022 [facility] Start: 08-02-2022 [facility] Start: 06-14-2022 [facility] Start: 05-12-2022 [facility] Start: 05-11-2022 Referral to furniture packer [facility] Start: 05-09-2022 Administration of prophylactic treatment [facility] Start: 05-09-2022 Hospital admission [facility] Start: 05-09-2022 Referral to furniture packer [facility] Start: 05-09-2022 Inspection of Lower Intestinal Tract, Via Natural or Artificial Opening Endoscopic Inspection of Lower Intestinal Tract, Via Natural or Artificial Opening Endoscopic [facility] Start: 04-02-2022 [facility] Start: 04-01-2022 Administration of prophylactic treatment [facility] Start: 04-01-2022 Comprehensive metabolic 2000 panel - Serum or Plasma [facility] Start: 04-01-2022 End: 04-01-2022 [facility] Start: 03-31-2022 End: 03-31-2022 [facility] Start: 03-31-2022 Magnesium measurement [facility] Start: 03-31-2022 Referral to furniture packer [facility] Start: 03-31-2022 Hospital admission [facility] Start: 03-31-2022 End: 04-01-2022 [facility] Start: 02-25-2021 Influenza vaccination INFLUENZA (Season Ended) [facility] Start: 2017 HPV TESTING HPV TESTING [facility] Start: 2008 PAP TESTING PAP TESTING [facility] Start: 2006 Urine microalbumin profile DTAP,TDAP,TD (1 - Tdap) [facility] Start: 2005 HEPATITIS C SCREENING HEPATITIS C SCREENING [facility] Start: 1999 Adult depression screening assessment DEPRESSION SCREENING [facility] Bacteria identified in Stool by Culture [facility] Work Phone: Bacteria identified in Urine by Culture [facility] Bacterial cytolethal distending toxin cdt gene [Presence] in Unspecified specimen by SARABJIT with probe detection [facility] Work Phone: Ferritin [Mass/volum e] in Serum or Plasma [facility] Work Phone: Folate [Mass/volume] in Serum or Plasma [facility] Work Phone: Hematocrit [Volume F raction] of Blood [facility] Work Phone: Hemoglobin [Mass/vol ume] in Blood [facility] Work Phone: Hemoglobin.gastroint estinal [Presence] in Stool [facility] Work Phone: Iron [Mass/volume] i n Serum or Plasma [facility] Work Phone: Iron binding capacit y [Mass/volume] in Serum or Plasma [facility] Work Phone: Iron saturation [Mas s Fraction] in Serum or Plasma [facility] Work Phone: Lactoferrin [Presenc e] in Stool [facility] Work Phone: Magnesium measurement [facility] Work Phone: Patient Education [facility] Work Phone: Patient referral [facility] Work Phone: Stool Lactoferrin Stool Lactoferrin [facility] Stool Occult Blood (DIVYA) Stool O ccult Blood (DIVYA) [facility] Transferrin measurement [facility] Work Phone: Vitamin B12 measurement [facility] Work Phone: Immunizations Immunization Date Immunization Notes Care Provider Rosa crenshaw 05-04-2022 influenza virus vacc ine, unspecified formulation Van SCHRADER [facility] 05-04-2022 influenza, seasonal, injectable Chandrika Lee [facility] Work Phone: Comment on above: Series: 06-17-2021 influenza virus vacc ine, unspecified formulation Chandrika Lee Work Phone: [facility] Work Phone: 06-17-2021 influenza, unspecifi ed formulation Van SCHRADER [facility] 08-20-2020 COVID-19 mRNALisseth (Pfizer) MD Chandrika Lee Work Phone: [facility] 08-20-2020 SARS-CoV-2 (COVID-19 ) Ad26 vaccine, recombinant TISH HARVEYRY [facility] [place] 07-09-2020 COVID-19 mRNALisseth (Pfizer) MD Chandrika Lee Work Phone: [facility] 07-09-2020 SARS-CoV-2 (COVID-19 ) Ad26 vaccine, recombinant TISH FAVIAN [facility] [place] 07-04-2020 Pfizer-BioNTech COVI D-19 Vacc 30 MCG/0.3ML Intramuscular Suspension Chandrika Lee Work Phone: [facility] Comment on above: Result Comment: 2022: TPVAL 08-13-1999 measles, mumps and rubella virus vaccine Chandrika Lee Work Phone: [facility] Payers Date Payer Category Payer Medicaid [id number] 2022 Self-pay [id number] 2013 Unknown MMO MMO SUPERMED PLUS [id number] 2013-Present PPO [id number]. [id number] 1987 Unknown [id number] 2.16.840.1.096593.3.579.2.356 1987 Unknown [id number] 2.16.840.1.138555.3.579.2.356 1987 Unknown [id number] 2.16.840.1.539087.3.579.2.1068 1987 Unknown [id number] 2.16.840.1.838191.3.579.2.593 1987 Unknown [id number] 2.16.840.1.114802.3.579.2.593 1987 Unknown [id number] 2.16.840.1.221045.3.579.2.593 1987 Unknown [id number] 2.16.840.1.639188.3.579.2.593 1987 Unknown [id number] 2.16.840.1.827499.3.579.2.593 1987 Unknown [id number] 2.16.840.1.311149.3.579.2.593 1987 Unknown [id number] 2.16.840.1.594240.3.579.2.593 1987 Unknown [id number] 2.16.840.1.816371.3.579.2.593 1987 Unknown [id number] 2.16.840.1.332732.3.579.2.593 1987 Unknown [id number] 2.16.840.1.910232.3.579.2.593 1987 Unknown [id number] 2.16.840.1.795824.3.579.2.727 1987 Unknown [id number] 2.16.840.1.022349.3.579.2.727 1987 Unknown [id number] 2.16.840.1.717445.3.579.2.727 1987 Unknown [id number] .16840.1.174409.3.579.2.727 1987 Unknown [id number] 2.16.840.1.337204.3.579.2.727 1987 Unknown [id number] .840.1.041673.3.579.2.727 1959 Self-pay [id number] 1959 Unknown [id number] Medicaid [employer] [id number] Unknown [id number] Unknown Unknown [id number] 840.1.888287.3.579.2.531 Unknown [id number] .840.1.536674.3.579.2.531 Unknown [id number] .840.1.359149.3.579.2.531 Unknown [id number] .840.1.213453.3.579.2.531 Unknown 840.1.382535.3.579.2.531 Unknown 840.1.215775.3.579.2.531 Unknown 840.1.724287.3.579.2.531 Unknown .840.1.708639.3.579.2.531 Unknown [id number] .840.1.028292.3.579.2.531 Unknown [id number] 840.1.687792.3.579.2.531 Unknown [id number] 840.1.466555.3.579.2.531 Social History Date Type Detail Facility Tobacco smoking stat us NHIS Unknown if ever smoked [facility] Start: 1985 Sex Assigned At Not on file C [facility] Start: 12-08-2021 End: 04-30-2024 Tobacco smoking status Never smoked tobacco (finding) [facility] [place] Tobacco smoking status Never [facility] [place] Sex Assigned At Female [facility] Start: 1985 Sex Assigned At Female F [facility] Start: 05-30-2022 End: 06-14-2022 Tobacco smoking status NHIS Ex-smoker (finding) [facility] Never a smoker Never a smoker [facility] 250 DO Work Phone: Comment on above: 1 decaf coffee daily ; Medical Equipment Procedure Code Equipment Code Equipment Origin al Text Equipment Identifier Dates Polymeric ureter al stent [id number] [facility] Start: 01-19-2021 Goals Date Patient Goal Desired Activity /State Functional Status Date Assessment Result Facility 10-06-2022 Functional Status N/A [facility] 05-12-2022 Functional status Patient at Baseline [facility] Work Phone: 04-02-2022 Functional status Patient at Baseline [facility] Work Phone: 12-08-2021 Functional Status N/A [facility] [place] Mental Status Date Assessment Result Facility 05-12-2022 Cognitive function Cognitive Sta tus Patient at Baseline [facility] Work Phone: 04-02-2022 Cognitive function Cognitive Sta tus Patient at Baseline [facility] Work Phone: Clinical Notes 05-27-2003 to 10-06-2022 Note Date & Type Note Facility 10-06-2022 Hospital Discharg e instructions Follow Up Care 10/06/2022 15:26:31 With:TISH KENDALL PA-C, URL Address: [address] [place] [phone] When: Unknown [facility] 10-06-2022 Hospital Discharg e instructions Patient Education 10/06/2022 15:03:54 Kidney Stones, Pjxj-yc-Hrxw Kidney Stones Kidney stones are rock-like masses [...] Follow these instructions at home: Medicines Take lyxd-kxy-mridvao and prescription medicines only as told by [...] 11/29/2008 Document Revised: 10/30/2019 Document Reviewed: 10/30/2019 [employer] Patient Education 2020 [employer]. Follow Up Care 09/06/2022 11:18:28 With:TISH KENDALL PA-C, URL Address: [address] [place] [address] [place] [address] [id number] When:04/07/2023 Comments:JULIO CESAR [facility] 09-06-2022 Hospital Discharg e instructions Patient [...] include: ?Spinach. ?Rhubarb. ?Beets. ?Potato chips and panamanian fries. ?Nuts. If you regularly take a diuretic medicine, make sure to eat at least 1 2 fruits or vegetables high in potassium each day. These include: ?Avocado. ?Banana. ?Charles Mix, prune, carrot, or tomato juice. ?Baked potato. [...] Casseroles. Pizza. Lasagna. Frozen meals. Potato chips. Rwandan fries. Summary You can reduce your risk [...] 10/08/2011 Document Revised: 10/03/2019 Document Reviewed: 05/24/2017 [employer] Patient Education 2019 [employer]. Follow Up Care 06/29/2022 15:00:08 With:RACIEL ANDERSON, Van Burroughs, URL Address: [facility] [address] [place] [address]- When: Unknown [facility] 06-14-2022 Procedure note [facility] 04-01-2022 Consult note Note Date/Time April 01, 2022 5:51pm [facility] [address] [place], [place] [id number] Gastroenterology Consult Note Signed Patient: Raquel Correa MR#: [id number] : 1985 Acct:[id number] Age/Sex: 37 / F Adm Date: 2 Loc: Room: 2H9351-5 Type: ADM IN Attending Dr: Jessica Akhtar [...] last many years. She had a colonoscopy [id number] with Dr. Burton colonoscopy in 2019 with [...] negative unless noted below or in HPI PMFSH Vaccinated for COVID-19?: Yes Medical History [...] Lactobacills gasseri-Bifidobac bifidum,longum 1.5 billion cell capsule ([employer]) 1.5 tab PO DAILY 04/10/17 [History Confirmed 03/31/22] cyproheptadine 4 mg tablet 4 mg PO BID 04/10/17 [History Confirmed 03/31/22] fluoxetine 40 mg capsule (Prozac) 40 mg PO DAILY 04/10/17 [History Confirmed 03/31/22] hydrocodone 5 mg-acetaminophen 325 mg tablet (Clinton) 1 tab PO BID PRN Pain 04/10/17 [History Confirmed 03/31/22] dicyclomine 20 mg tablet 20 mg PO BID 04/25/19 [History Confirmed 03/31/22] zdzfppr-vxksbfwhjlvil-udjzrwrj 250 mg-250 mg-65 mg tablet (Excedrin Migraine) [...] tablet (Imitrex) 100 mg PO DIRECTED PRN Gderfshl84/06/21 [History Confirmed 03/31/22] d-mannose 500 mg capsule [...] MPV Neut % (Auto) Lymph % (Auto) [place] % (Auto) Eos % (Auto) Baso % (Auto) Neut # (Auto) Lymph # (Auto) [place] # (Auto) Eos # (Auto) Baso # (Auto) Nucleated RBC % (auto) PHA Creatinine Clear Sodium Potassium Chloride Carbon Dioxide Anion Gap BUN Creatinine Est GFR ( Amer) Est GFR (Non-Af Amer) Glucose Calcium Total Bilirubin AST ALT Alkaline Phosphatase Total Protein Albumin Globulin Albumin/Globulin Ratio Urine Color Yellow Urine Appearance Clear Urine pH 5.5 Ur Specific [place] 1.005 Urine Protein Negative Urine Glucose (UA) Normal Urine Ketones Negative Urine Occult Blood Negative Urine Nitrite Positive H Urine Bilirubin Negative Urine Urobilinogen Normal Ur Leukocyte Esterase 3+ H Urine RBC None seen Urine WBC 10-19 H Ur Squamous Epith Cells 5-9 H Urine Bacteria 3+ H Hyaline Casts 0-8 COVID-19 Clin Com Negative Crossmatch ([facility]) See Detail 03/31/22 04/01/22 04/01/22 21:44 00:08 06:28 Corrected WBC 6.6 Uncorrected WBC Count 6.6 RBC 2.69 L Hgb 8.0 L 7.2 L 7.8 L Hct 24.1 L 21.7 L 23.6 L MCV 87.7 MCH 29.0 MCHC 33.1 RDW 15.1 Plt Count 403 MPV 7.4 Neut % (Auto) 59.7 Lymph % (Auto) 32.6 [place] % (Auto) 6.1 Eos % (Auto) 1.3 Baso % (Auto) 0.3 Neut # (Auto) 4.0 Lymph # (Auto) 2.2 [place] # (Auto) 0.4 Eos # (Auto) 0.1 Baso # (Auto) 0.0 Nucleated RBC % (auto) 0.1 PHA Creatinine Clear Sodium Potassium Chloride Carbon Dioxide Anion Gap BUN Creatinine Est GFR ( Amer) Est GFR (Non-Af Amer) Glucose Calcium Total Bilirubin AST ALT Alkaline Phosphatase Total Protein Albumin Globulin Albumin/Globulin Ratio Urine Color Urine Appearance Urine pH Ur Specific [place] Urine Protein Urine Glucose (UA) Urine Ketones Urine Occult Blood Urine Nitrite Urine Bilirubin Urine Urobilinogen Ur Leukocyte Esterase Urine RBC Urine WBC Ur Squamous Epith Cells Urine Bacteria Hyaline Casts COVID-19 Clin Com Crossmatch ([facility]) 04/01/22 04/01/22 06:28 12:01 Corrected WBC Uncorrected WBC Count RBC Hgb 8.9 L Hct 26.9 L MCV MCH MCHC RDW Plt Count MPV Neut % (Auto) Lymph % (Auto) [place] % (Auto) Eos % (Auto) Baso % (Auto) Neut # (Auto) Lymph # (Auto) [place] # (Auto) Eos # (Auto) Baso # [...] Color Urine Appearance Urine pH Ur Specific [place] Urine Protein Urine Glucose (UA) Urine Ketones [...] <Electronically signed by MD Be Azul> 04/01/[address] [facility] Work Phone: 1(950) 754-484310-06-2022 Progress note Author Jessica Akhtar [facility] April 01, 2022 12:51pm Note Date/Time April 01, 2022 11 :42am [facility] [address] [place] [address] Hospitalist Progress Note Signed Patient: Raquel Correa MR#: [id number] : 1985 Acct:[id number] Age/Sex: 37 / F Adm Date: 2 Loc: Room: [address] [place] [address] Type: ADM IN Attending Dr: Jessica Akhtar [...] signed by Jessica Akhtar MD> 04/01/[address] [facility] Work Phone: 1(245) 847-880910-05-2022 History and physical note Author Jessica Akhtar [facility] March 31, 2022 3:09pm Note Date/Time March 31, 2022 3: 09pm [facility] [address] [place] [address] Hospitalist H&P Signed Patient: Raquel Correa MR#: [id number] : 1985 Acct:[id number] Age/Sex: 37 / F Adm Date: 2 Loc: 4 Room: [address] [place] [address] Type: ADM IN Attending Dr: Jessica Akhtar [...] Lactobacills gasseri-Bifidobac bifidum,longum 1.5 billion cell capsule ([employer]) 1.5 tab PO DAILY 04/10/17 [History Confirmed 03/31/22] cyproheptadine 4 mg tablet 4 mg PO BID 04/10/17 [History Confirmed 03/31/22] fluoxetine 40 mg capsule (Prozac) 40 mg PO DAILY 04/10/17 [History Confirmed 03/31/22] hydrocodone 5 mg-acetaminophen 325 mg tablet (Clinton) 1 tab PO Q4H PRN Pain 04/10/17 [History Confirmed 03/31/22] dicyclomine 20 mg tablet 20 mg PO BID 04/25/19 [History Confirmed 03/31/22] nfcnhuq-hlhakuvdrxhxt-wuroryla 250 mg-250 mg-65 mg tablet (Excedrin Migraine) [...] tablet (Imitrex) 100 mg PO DIRECTED PRN Qtbjbyjo99/06/21 [History Confirmed 03/31/22] d-mannose 500 mg capsule [...] % (Auto) 22.6 % (.) 03/31/22 12:37 [place] % (Auto) 5.6 % (.) 03/31/22 12:37 Eos % (Auto) 0.3 % (.) 03/31/22 12:37 Baso % (Auto) 0.5 % (.) 03/31/22 12:37 Neut # (Auto) 8.3 x10E3/uL (1.8-7.7) H 03/31/22 12:37 Lymph # (Auto) 2.6 x10E3/uL (1.00-4.8) 03/31/22 12:37 [place] # (Auto) 0.7 x10E3/uL (0.0-0.8) 03/31/22 12:37 [...] signed by Jessica Akhtar MD> 03/31/22 1509 [facility] Work Phone: 1(316) 906-643212-01-2003 History of Past illness Narrative* Problem Noted Date Resolved Date Abdominal pain 05/27/2003 04/10/2013 Diarrhea 05/27/2003 04/10/2013 documented as of this encounter (statuses as of 10/16/2020) [facility] No data available for this section [facility] [place] Evaluation + Plan note Future Appointments Appointment Date:10/06/2022 02:40:00 PM Scheduled Provider:TISH KENDALL PA-C Location:[facility] Appointment Type:URO Office Visit [facility] evaluation + Plan note Future Appointments Appointment Date:04/12/2023 11:00:00 AM Scheduled Provider:TISH KENDALL PA-C Location:[facility] Appointment Type:URO Office Visit [facility] evaluation + Plan note Future Appointments Appointment Date:05/10/2023 01:15:00 PM Scheduled Provider:TISH KENDALL PA-C Location:[facility] Appointment Type:URO Office Visit [facility] evaluation noteNo assessment information available [facility] Work Phone: evaluation note* Diagnosis Onset Date Resolution Status Anemia acute Chronic hypokalemia acute Crohn's disease acute [facility] Work Phone: evaluation note* Diagnosis Onset Date Resolution Status Anemia acute C. difficile colitis acute Chronic hypokalemia acute Crohn's disease acute [facility] Work Phone: evaluation note* Diagnosis Onset Date Resolution Status Anemia acute C. difficile colitis acute Chronic hypokalemia acute Crohn's disease acute Acute blood loss anemia acut e Anemia acute Crohn's disease acute Hypokalemia acute Rectal bleeding acute [facility] Work Phone: evaluation note* Diagnosis Onset Date Resolution Status Anemia acute C. difficile colitis acute Chronic hypokalemia acute Crohn's disease acute Acute blood loss anemia acut e Anemia acute Crohn's disease acute Hypokalemia acute Rectal bleeding acute Rectal bleeding acute [facility] Work Phone: evaluation note* Diagnosis Onset Date Resolution Status Acute blood loss anemia acut e Anemia acute Crohn's disease acute Hypokalemia acute Rectal bleeding acute Rectal bleeding acute [facility] Work Phone: evaluation note* Diagnosis Onset Date Resolution Status Rectal bleeding acute [facility] Work Phone: History and physical note Author Jessica Akhtar [facility] March 31, 2022 3:09pm Note Date/Time March 31, 2022 3: 09pm [facility] [address] [place] [address] Hospitalist H&P Signed Patient: Raquel Correa MR#: [id number] : 1985 Acct:[id number] Age/Sex: 37 / F Adm Date: 2 Loc: Room: [address] [place] [address] Type: ADM IN Attending Dr: Jessica Akhtar [...] negative apart [facility] is [facility] for [facility]?: Yes Medical History [...] Lactobacills gasseri-Bifidobac bifidum,longum 1.5 billion cell capsule ([employer]) 1.5 tab PO DAILY 04/10/17 [History Confirmed 03/31/22] cyproheptadine 4 mg tablet 4 mg PO BID 04/10/17 [History Confirmed 03/31/22] fluoxetine 40 mg capsule (Prozac) 40 mg PO DAILY 04/10/17 [History Confirmed 03/31/22] hydrocodone 5 mg-acetaminophen 325 mg tablet (Clinton) 1 tab PO Q4H PRN Pain 04/10/17 [History Confirmed 03/31/22] dicyclomine 20 mg tablet 20 mg PO BID 04/25/19 [History Confirmed 03/31/22] mtishoi-hmvumahhuleky-szxbxoog 250 mg-250 mg-65 mg tablet (Excedrin Migraine) [...] tablet (Imitrex) 100 mg PO DIRECTED PRN Wcskalaa97/06/21 [History Confirmed 03/31/22] d-mannose 500 mg capsule [...] % (Auto) 22.6 % (.) 03/31/22 12:37 [place] % (Auto) 5.6 % (.) 03/31/22 12:37 Eos % (Auto) 0.3 % (.) 03/31/22 12:37 Baso % (Auto) 0.5 % (.) 03/31/22 12:37 Neut # (Auto) 8.3 x10E3/uL (1.8-7.7) H 03/31/22 12:37 Lymph # (Auto) 2.6 x10E3/uL (1.00-4.8) 03/31/22 12:37 [place] # (Auto) 0.7 x10E3/uL (0.0-0.8) 03/31/22 12:37 [...] <Electronically signed by Jessica Akhtar MD> 03/31/[address] [facility] Work Phone: 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 [...] Follow up. * 6.Life style modification reiterated. -[facility] 250 DO Work Phone: 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 [...] Follow up. * 6.Life style modification reiterated. [facility] Work Phone: Hospital Discharge instructions No data available for this section [facility] Hospital Discharge instructions Additional Instructions Dietary recommendations: - Boost Breeze three times/day with meals[facility] Work Phone: Hospital Discharge instructions Additional [...] if you have any problems. -Office number [phone] [facility] Work Phone: Progress note No data available for this section [facility] Progress note Author Be Azul [facility] April 02, 2022 3:55pm Note Date/Time April 02, 2022 3: 55pm [facility] [address] [place] [address] Gastroenterology PN Signed Patient: Raquel Correa MR#: [id number] : 1985 Acct:[id number] Age/Sex: 37 / F Adm Date: 2 Loc: 4 Room: [address] [place] [address] Type: DIS IN Attending Dr: Jessica Akhtar [...] <Electronically signed by MD Be Azul> 04/02/22 9656 [facility] Work Phone: Chief Complaint and Reason for [...] 10, 2017 12:41am Chief Complaint POC Hemmroidectomy Debbie.RAQUEL CORREA is being seen for a 2 [...] or prosecute any alcohol or drug abuse patient.[facility] Reason for Visit (unrecogniz ed section and [...] Lee MD Primary Care Provider, Attending Pr ovider Active Team Status: Inactive Member Role Status Trista Lee MD Primary Care Provider Active Carter Lewis DO Attending Provider Active Goals (unrecognized section and content) Goals may be documented in a n alternate section INFORMATION SOURCE (unrecogn ized section and content) DATE CREATED AUTHOR 09/04/2022 [facility] DATE CREATED AUTHOR AUTHOR'S ORGANIZ ATION 09/05/2022 [facility] DATE CREATED AUTHOR AUTHOR'S ORGANIZ ATION 10/04/2022 [facility] DATE CREATED AUTHOR AUTHOR'S ORGANIZ ATION 12/04/2022 [facility] DATE CREATED AUTHOR AUTHOR'S ORGANIZ ATION 12/04/2022 [facility] DATE CREATED AUTHOR AUTHOR'S ORGANIZ ATION 05/04/[address] [facility] FOR RECORDS PERTAINING TO PATIENTS WHO ARE [...] BE BASED ON THE PRIMARY CLINICAL RECORDS. [employer] [facility]. provides no warranty or guarantee of the accuracy or completeness of information in this document.
--- NOTE | 2024-05-05 15:59 | CT_ITS ---
The [address] [address] Patient Name: RAQUEL BRAR MRN: [id number] date: 1985 Sex: F Assigned Patient Location: ER Current Patient Location: ER Accession/Order Number: [id number] Exam Date: 05/05/2024 16:40 Report Date: 05/05/2024 17:41 At the request of: CRISTELA CORBIN Procedure: CT abdomen pelvis wo con EXAMINATION: CT abdomen pelvis wo con, 05/05/2024 4:40 PM EST HISTORY: kidney stone COMPARISON: 05/05/2023 TECHNIQUE: CT scan of the abdomen and pelvis was performed without IV contrast. Oral contrast was not administered prior to the examination. Sagittal and coronal reformats were created and saved to PACS. Dose reduction techniques were achieved by using automated exposure control and/or adjustment of mA and/or kV according to patient size and/or use of iterative reconstruction technique. FINDINGS: Noncontrasted nature of the exam limits evaluation of the vascular structures and solid organs. Lung Bases: No acute findings in the visualized lower chest. Liver: Unchanged size and contour. Biliary tree: Minimal prominence of the central intrahepatic bile ducts and common bile duct relating to cholecystectomy. Gallbladder: Mild smooth intra and extrahepatic biliary dilatation with tapering at the ampulla, increased since comparison CT 05/05/2023, could in part related to cholecystectomy status, ampullary narrowing is not excluded. Spleen: Normal. Pancreas: Relatively smooth dilatation of the main pancreatic duct measuring up to 9 mm in the body, likely increased since CT 05/05/2023 previously approximately 6 mm; tapering at the ampulla. Adrenal glands: Normal. Kidneys and ureters: Right upper calyectasis without edgard hydronephrosis. Nonobstructing intrarenal calculus on the right measures up to approximately 5 mm. There is a right cortical calcification as well which is similar to prior CT. Bladder: Bladder wall thickening in part relates underdistention. Reproductive organs: Intrauterine device appears grossly appropriately positioned. Fluid collection largely conforming to the peritoneal spaces within the right adnexal region abutting the right ovary has likely mildly decreased in size since prior CT 05/05/2023, with a lobulated component previously noted extending anterolaterally not seen on today's exam; this could relate to inclusion cyst. Physiologic ovarian cysts are noted bilaterally. Gastrointestinal tract: Procedure change distal small bowel and likely cecum. No findings of obstruction. Appendix is not definitively visualized, likely surgically absent. Scattered colonic diverticula without findings of acute diverticulitis. Peritoneum/retroperitoneum: No free fluid or gas. Fluid collection in the right adnexal region as above. Vasculature: No abdominal aortic aneurysm. Lymph nodes: Normal. Abdominal wall: Procedure change. No acute findings. Musculoskeletal: No acute findings CT/CT abdomen pelvis wo con IMPRESSION: 1. Right upper pole calyectasis without edgard hydronephrosis. Nonobstructing intrarenal calculus on the right measures 5 mm. 2. Mild intra and extrahepatic biliary dilatation with tapering at the ampulla, increased since CT 05/05/2023, could in part related to cholecystectomy status. Increased dilatation of the main pancreatic duct as well, also tapering at the ampulla; an ampullary narrowing is not excluded. Correlate with LFTs and consider further characterization with abdominal MRI/MRCP. 3. Bladder wall thickening in part relates to underdistention. Correlate with urinalysis to exclude cystitis. 4. Fluid collection in the right adnexal region abutting the right ovary has likely mildly decreased in size since 05/05/2023; this could relate to an inclusion cyst. 5. Additional postprocedural and chronic findings as above. Electronically authenticated by: ROSALINE BENAVIDEZ Date: 05/05/2024 17:41
--- NOTE | 2024-05-05 16:00 | ED_ITS ---
HPI HPI - General Adult General Chief complaint: Urogenital-Female Stated complaint: POSS KIDNEY STONES Time Seen by Provider: 05/05/24 15:50 Source: patient Mode of arrival: walk-in Limitations: no limitations 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 Illness HPI narrative: Patient is a 39-year-old female with a history of multiple kidney stones, chronic migraines who presents to the ER for increasing pain in the right flank over the last several days. She apparently had outpatient labs and an x-ray yesterday, she denies a possibility of . She sees Dr. Toribio for urology. She has had multiple stents in the past for kidney stones. 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 She reports fevers as high as 101.0 Fahrenheit. Last dose of Tylenol or Motrin was 2 hours ago. Related Data Home Medications ?Medication ?Instructions ?Recorded ?Confirmed Lactobacillus rhamnosus-Bifidobac. cap PO 05/17/23 animalis 3 billion cell capsule ([employer]) cranberry 400 mg capsule 400 mg PO DAILY 05/17/23 05/23/23 cyanocobalamin (vitamin B-12) 1,000 mcg IM .monthly 05/17/23 05/23/23 1,000 mcg/mL injection solution cyproheptadine 4 mg tablet 4 mg PO BID 05/17/23 05/23/23 d-mannose 500 mg capsule mg PO 05/17/23 dicyclomine 20 mg tablet 20 mg PO BID 05/17/23 05/23/23 fluoxetine 40 mg capsule (Prozac) 40 mg PO DAILY 05/17/23 05/23/23 hydrocodone 5 mg-acetaminophen 325 1 tab PO BID 05/17/23 05/23/23 mg tablet metoprolol tartrate 50 mg tablet 50 mg PO BID 05/17/23 05/23/23 (Lopressor) multivitamin (Daily Multi-Vitamin 1 tab PO DAILY 05/17/23 05/23/23 tablet) ondansetron HCl 4 mg tablet 4 mg PO TID-QID PRN nausea and 05/17/23 05/23/23 vomiting potassium chloride 20 mEq 20 meq PO BID 05/17/23 05/23/23 tablet,extended release (K-Tab) sumatriptan succinate 100 mg See Rx Instructions PO .COMPLEX 05/17/23 05/23/23 tablet (Imitrex) Previous Rx's ?Medication ?Instructions ?Recorded cefdinir 300 mg capsule 300 mg PO DAILY 10 days #10 caps 05/23/23 mirabegron 25 mg tablet,extended 25 mg PO DAILY #20 tabs 05/23/23 release 24 hr (Myrbetriq) cephalexin 500 mg capsule 500 mg PO Q8H 10 days #30 caps 05/05/24 ketorolac 10 mg tablet 10 mg PO TID PRN pain #10 tabs 05/05/24 ondansetron 4 mg disintegrating 4 mg PO Q6H PRN nausea and 05/05/24 tablet vomiting #12 tabs Allergies Allergy/AdvReac Type Severity Reaction Status Date / Time amoxicillin (From Augmentin) Allergy Abdominal Verified 05/17/23 10:33 Pain clavulanic acid (From Allergy Abdominal Verified 05/17/23 10:33 Augmentin) Pain iron Allergy Hives Verified 05/17/23 10:33 levofloxacin (From Levaquin) Allergy Rash Verified 05/17/23 10:33 morphine Allergy Migraine Verified 05/17/23 10:33 tramadol Allergy Abdominal Verified 05/17/23 10:33 Pain Opioid HPI Opioid Management Most Recent Opioid Data: Last Pain Scale 5 05/23/23 08:50 05/23/23 Urine Drug Screen Interp Final (.) 07/19/23 13:15 4 Ur Phencyclidine Scrn Negative (NEGATIVE) 07/19/23 13:15 06/28 09/17 Review of Systems ROS Constitutional Reports: fever; Denies: chills Ears, nose, mouth, and throat Denies: throat pain or nasal congestion Cardiovascular Denies: chest pain Respiratory Denies: shortness of breath Gastrointestinal Reports: abdominal pain; Denies: nausea or vomiting Genitourinary Denies: painful urination Musculoskeletal Reports: back pain; Denies: neck pain or extremity pain Neurological Denies: numbness in extremities or weakness in extremities Hematologic/Lymphatic Denies: easy bruising or easy bleeding [facility] Medical History (Updated 05/05/24 @ 17:49 by KOREY Swann) Hypokalemia ?E87.6 - Hypokalemia (ICD-10) History of blood transfusion ?Z92.89 - Personal history of other medical treatment (ICD-10) Anemia ?D64.9 - Anemia, unspecified (ICD-10) GI bleeding ?K92.2 - Gastrointestinal hemorrhage, unspecified (ICD-10) Deep vein thrombosis (2020) ?I82.409 - Acute embolism and thrombosis of unspecified deep veins of unspecified lower extremity (ICD-10) OCD (obsessive compulsive disorder) ?F42.9 - Obsessive-compulsive disorder, unspecified (ICD-10) COVID-19 ?U07.1 - COVID-19 (ICD-10) Migraine ?G43.909 - Migraine, unspecified, not intractable, without status migrainosus (ICD-10) Kidney stones ?N20.0 - Calculus of kidney (ICD-10) Vomiting ?R11.10 - Vomiting, unspecified (ICD-10) Nausea ?R11.0 - Nausea (ICD-10) Diarrhea ?R19.7 - Diarrhea, unspecified (ICD-10) GERD (gastroesophageal reflux disease) ?K21.9 - Gastro-esophageal reflux disease without esophagitis (ICD-10) Colitis ?K52.9 - Noninfective gastroenteritis and colitis, unspecified (ICD-10) Paroxysmal atrial tachycardia ?I47.19 - Other supraventricular tachycardia (ICD-10) Crohn disease ?K50.90 - Crohn's disease, unspecified, without complications (ICD-10) S/P extracorporeal shock wave therapy ?Z98.890 - Other specified postprocedural states (ICD-10) Surgical History (Updated 05/17/23 @ 10:48 by Milly Gomes NP) S/P cystoscopy ?Z98.890 - Other specified postprocedural states (ICD-10) S/P ureteral stent placement ?Z96.0 - Presence of urogenital implants (ICD-10) History of cholecystectomy ?Z90.49 - Acquired absence of other specified parts of digestive tract (ICD- 10) History of colonoscopy ?Z98.890 - Other specified postprocedural states (ICD-10) History of hemorrhoidectomy ?Z98.890 - Other specified postprocedural states (ICD-10) History of hemorrhoidectomy ?Z98.890 - Other specified postprocedural states (ICD-10) History of bowel resection ?Z90.49 - Acquired absence of other specified parts of digestive tract (ICD- 10) H/O colectomy ?Z90.49 - Acquired absence of other specified parts of digestive tract (ICD- 10) H/O parotidectomy ?Z90.49 - Acquired absence of other specified parts of digestive tract (ICD- 10) H/O cardiac radiofrequency ablation ?Z98.890 - Other specified postprocedural states (ICD-10) Family History (Updated 05/17/23 @ 10:48 by Milly Gomes NP) Other Family history of cervical cancer Family history of diabetes mellitus Family history of hypertension Social History Within the past year, how often did you have a drink containing alcohol: never Score interpretation: A score less than 3 is consistent with normal alcohol consumption. Smoking status: Never smoker Non-prescribed substance use: denies use Previous occupational history: [employer]OTE [employer] Highest level of school completed/degree received: some college, no degree Little interest or pleasure in doing things: not at all Feeling down, depressed, or hopeless: not at all Exam Narrative Exam Narrative: Gen.: Awake, alert, in no distress Head: Normocephalic, atraumatic ENT: Moist mucous membranes Respiratory: No respiratory distress Gastrointestinal: Abdomen is soft, nondistended and nontender to palpation; tenderness of the right flank Extremities: Moves extremities equally Psych: Normal mood and affect Neuro: No focal neuro deficit Skin: Warm, dry, intact Constitutional Vital Signs, click to edit/add: Last Vital Signs Temp 98.6 F 05/05/24 15:54 Pulse 93 H 05/05/24 15:54 Resp 18 05/05/24 15:54 BP 135/87 05/05/24 15:54 Pulse Ox 97 05/05/24 15:54 O2 Del Method Room Air 05/05/24 15:54 Course Vital Signs Vital signs: Vital Signs Temperature 98.6 F 05/05/24 15:54 Pulse Rate 93 H 05/05/24 15:54 Respiratory Rate 18 05/05/24 15:54 Blood Pressure 135/87 05/05/24 15:54 Pulse Oximetry 97 05/05/24 15:54 Oxygen Delivery Method Room Air 05/05/24 15:54 Temperature 98.6 F 05/05/24 15:54 Pulse Rate 93 H 05/05/24 15:54 Respiratory Rate 18 05/05/24 15:54 Blood Pressure 135/87 05/05/24 15:54 Pulse Oximetry 97 05/05/24 15:54 Oxygen Delivery Method Room Air 05/05/24 15:54 Medical Decision Making MDM Narrative Medical decision making narrative: Patient was treated with IV fluids, Dilaudid, Toradol, Zofran. Laboratory studies show no leukocytosis or bandemia, normal lactic acid. Patient with urinary tract infection and right flank pain consistent with a diagnosis of pyelonephritis. CT shows no evidence of a ureteral stone or hydronephrosis. Patient does have renal stones that are chronic. She was also noted to have dilation of the pancreatic duct and is status postcholecystectomy. She has no specific right upper quadrant pain and has normal LFTs and bilirubin. Patient was reevaluated by attending physician, she does not require admission as she is not septic. She was treated with IV Rocephin and is discharged home with Keflex, Zofran, Toradol. Follow-up with PCP and urology and return to the ER if symptoms change or worsen SUPERVISED APC VISIT, PHYSICIAN ATTESTATION: Based on the medical record the care appears appropriate. ? Medical Records Medical records reviewed: Yes I reviewed the patient's medical records Lab Data Lab results reviewed: Yes I reviewed the patient's lab results Labs: Lab Results 05/05/24 05/05/24 Range/Units 16:00 16:15 WBC 9.5 (4.0-11.0) 10^3/uL RBC 4.76 (4.20-5.40) 10^6/uL Hgb 14.0 (12.0-16.0) g/dL Hct 40.3 (36.0-48.0) % MCV 84.7 (81.0-99.0) fL MCH 29.4 (26.7-34.0) pg MCHC 34.7 (29.9-35.2) g/dL RDW 13.1 (11.0-15.0) % Plt Count 317 (150-450) 10^3/uL MPV 9.5 (9.5-13.5) fL Neut % (Auto) 71.2 (43.0-75.0) % Lymph % (Auto) 19.2 L (20.5-60.0) % [place]ender % (Auto) 7.6 (1.7-12.0) % Eos % (Auto) 1.5 (0.9-7.0) % Baso % (Auto) 0.3 (0.2-2.0) % Neut # (Auto) 6.8 H (1.4-6.5) 10^3/uL Lymph # (Auto) 1.8 (1.2-3.8) 10^3/uL Pender # (Auto) 0.7 (0.3-0.8) 10^3/uL Eos # (Auto) 0.1 (0.0-0.7) 10^3/uL Baso # (Auto) 0.0 (0.0-0.1) 10^3/uL Abs Immat Gran (auto) 0.02 (0.00-0.03) 10^3/uL Imm/Tot Granulo (auto) 0.2 (0.0-0.5) % Sodium 139 (136-145) mmol/L Potassium 3.4 L (3.5-5.1) mmol/L Chloride 99 (98-107) mmol/L Carbon Dioxide 27.1 (21.0-32.0) mmol/L Anion Gap 16.3 BUN 7.0 (7.0-18.0) mg/dL Creatinine 0.79 (0.55-1.02) mg/dL Est GFR ( Amer) >60 (>=60 mL/min/1.73m^2) Est GFR (Non-Af Amer) >60 (>=60 mL/min/1.73m^2) BUN/Creatinine Ratio 8.9 Glucose 123 H (74-106) mg/dL Lactate 1.7 (0.4-2.0) mmol/L Calcium 9.6 (8.5-10.1) mg/dL Total Bilirubin 0.9 (0.2-1.0) mg/dL AST 32 (15-37) U/L ALT 36 (14-59) U/L Alkaline Phosphatase 66 (46-116) U/L Total Protein 7.7 (6.4-8.2) g/dL Albumin 3.7 (3.4-5.0) g/dL Globulin 4.0 g/dL Albumin/Globulin Ratio 0.9 Urine Color Dk yellow (YELLOW) Urine Clarity Clear (CLEAR) Urine pH 6.0 (5.0-9.0) Ur Specific [place] 1.025 (1.005-1.025) Urine Protein 30 A (NEG/TRACE) mg/dL Urine Glucose (UA) Negative (NEGATIVE) mg/dL Urine Ketones Negative (NEGATIVE) mg/dL Urine Occult Blood Trace-i (NEGATIVE) Urine Nitrite Positive A (NEGATIVE) Urine Bilirubin Negative (NEGATIVE) Urine Urobilinogen 1.0 (0.2-1.0) EU/dL Ur Leukocyte Esterase Moderate A (NEGATIVE) Urine RBC 2-5 A (0-2) #/HPF Urine WBC 50-75 A (NONE SEEN) #/HPF Ur Squamous Epith Cells Few A (NONE/RARE) #/LPF Urine Crystals None seen (None Seen) #/HPF Urine Bacteria Large A (NONE SEEN) #/HPF Urine Casts None seen (NONE SEEN) #/LPF Urine Mucus None seen (NONE SEEN) Ur Culture Indicated? Yes Urine HCG, Qual Negative (NEGATIVE) Imaging Data CT scan - abdomen: Attestation: I have reviewed the pertinent imaging results. Radiologist's impression: ITS Impressions Abdomen/Pelvis CT 05/05/24 15:59 IMPRESSION: 1. Right upper pole calyectasis without edgard hydronephrosis. Nonobstructing intrarenal calculus on the right measures 5 mm. 2. Mild intra and extrahepatic biliary dilatation with tapering at the ampulla, increased since CT 05/05/2023, could in part related to cholecystectomy status. Increased dilatation of the main pancreatic duct as well, also tapering at the ampulla; an ampullary narrowing is not excluded. Correlate with LFTs and consider further characterization with abdominal MRI/MRCP. 3. Bladder wall thickening in part relates to underdistention. Correlate with urinalysis to exclude cystitis. 4. Fluid collection in the right adnexal region abutting the right ovary has likely mildly decreased in size since 05/05/2023; this could relate to an inclusion cyst. 5. Additional postprocedural and chronic findings as above. Electronically authenticated by: ROSALINE BENAVIDEZ Date: 05/05/2024 17:41 Discharge Plan Discharge Chief Complaint: Urogenital-Female Clinical Impression: Pyelonephritis, Acute right flank pain Patient Disposition: Home, Self-Care Time of Disposition Decision: 17:49 Condition: Good Mode of Transportation: Private Vehicle Prescriptions / Home Meds: New ketorolac 10 mg tablet 10 mg PO TID PRN (Reason: pain) Qty: 10 0RF cephalexin 500 mg capsule 500 mg PO Q8H 10 Days Qty: 30 0RF ondansetron 4 mg tablet,disintegrating 4 mg PO Q6H PRN (Reason: nausea and vomiting) Qty: 12 0RF No Action dicyclomine 20 mg tablet 20 mg PO BID cyanocobalamin (vitamin B-12) 1,000 mcg/mL solution 1,000 mcg IM .monthly cyproheptadine 4 mg tablet 4 mg PO BID multivitamin [Daily Multi-Vitamin] Tablet 1 tab PO DAILY sumatriptan succinate [Imitrex] 100 mg tablet See Rx Instructions .ROUTE .COMPLEX Rx Instructions: take 1 tab at onset of headache; if no relief, may repeat 1 tab after at least 2 hrs; max = 2 tabs/24 hrs metoprolol tartrate [Lopressor] 50 mg tablet 50 mg PO BID [employer] 3 billion cell capsule PO potassium chloride [K-Tab] 20 mEq tablet extended release 20 meq PO BID fluoxetine [Prozac] 40 mg capsule 40 mg PO DAILY ondansetron HCl 4 mg tablet 4 mg PO TID-QID PRN (Reason: nausea and vomiting) hydrocodone-acetaminophen 5-325 mg tablet 1 tab PO BID cranberry 400 mg capsule 400 mg PO DAILY Rx Instructions: administer with a meal d-mannose 500 mg capsule PO cefdinir 300 mg capsule 300 mg PO DAILY 10 Days Qty: 10 0RF Myrbetriq 25 mg tablet extended release 24 hr 25 mg PO DAILY Qty: 20 0RF Print Language: Mexican Instructions: Kidney Infection (ED), Flank Pain (ED) Referrals: Jere Remy MD [Primary Care Provider] - 1 week
[2024-05-05 16:22] LABS: Basophils Percent Auto 0.3 % (0.2-2.0); Eosinophils Absolute Auto 0.1 10^3/uL (0.0-0.7); Eosinophils Percent Auto 1.5 % (0.9-7.0); Hematocrit 40.3 % (36.0-48.0); Immature Granulocytes Abs Auto 0.02 10^3/uL (0.00-0.03); Immature Granulocytes Pct Auto 0.2 % (0.0-0.5); Lymphocytes Absolute Auto 1.8 10^3/uL (1.2-3.8); Lymphocytes Percent Auto 19.2 % (20.5-60.0); Mean Corpuscular HGB Conc 34.7 g/dL (29.9-35.2); Mean Corpuscular Hemoglobin 29.4 pg (26.7-34.0); Mean Corpuscular Volume 84.7 fL (81.0-99.0); Mean Platelet Volume 9.5 fL (9.5-13.5); Monocytes Absolute Auto 0.7 10^3/uL (0.3-0.8); Monocytes Percent Auto 7.6 % (1.7-12.0); Neutrophils Absolute Auto 6.8 10^3/uL (1.4-6.5); Neutrophils Percent Auto 71.2 % (43.0-75.0); Platelet Count 317 10^3/uL (150-450); Red Blood Count 4.76 10^6/uL (4.20-5.40); Red Cell Distribution Width 13.1 % (11.0-15.0); White Blood Count 9.5 10^3/uL (4.0-11.0)
[2024-05-05 16:23] LABS: Bilirubin Urine NEGATIVE (NEGATIVE); Blood Urine TRACE-I (NEGATIVE); Clarity Urine CLEAR (CLEAR); Glucose Urine UA NEGATIVE (NEGATIVE); Ketones Urine NEGATIVE (NEGATIVE); Leukocyte Esterase Urine MODERATE (NEGATIVE); Nitrite Urine POSITIVE (NEGATIVE); Protein Urine 30 mg/dL (NEG/TRACE); Specific Gravity Urine 1.025 (1.005-1.025)
[2024-05-05 16:25] LABS: Color Urine DK YELLOW (YELLOW); Urine Microscopic Indicated YES
[2024-05-05] MEDS: ONDANSETRON PF 4 MG/2 ML VIAL IV (16:25)
[2024-05-05] MEDS: 0.9 % SODIUM CHLORIDE 1,000 ML 1000 ML IV (16:26)
[2024-05-05] MEDS: HYDROMORPHONE HCL 1 MG/ML CARTRIDGE IV (16:26)
[2024-05-05] MEDS: KETOROLAC TROMETHAMINE 30 MG/ML VIAL IVP (16:26)
[2024-05-05 16:32] LABS: HCG Qualitative Urine* NEGATIVE (NEGATIVE); Internal Control Within Normal Limits
[2024-05-05 16:36] LABS: Bacteria Urine LARGE #/HPF (NONE SEEN); Cast Seen? NONE SEEN #/LPF (NONE SEEN); Crystals Seen? None Seen #/HPF (None Seen); Mucus Urine NONE SEEN (NONE SEEN); Squamous Epithelial Cell Urine FEW #/LPF (NONE/RARE); WBC Urine 50-75 #/HPF (NONE SEEN)
[2024-05-05 16:37] LABS: Urine Culture Indicated YES
[2024-05-05 16:39] LABS: Alanine Aminotransferase 36 U/L (14-59); Albumin Globulin Ratio 0.9; Albumin Level 3.7 g/dL (3.4-5.0); Alkaline Phosphatase 66 U/L (46-116); Anion Gap 16.3; Aspartate Amino Transferase 32 U/L (15-37); BUN Creatinine Ratio 8.9; Bilirubin Total 0.9 mg/dL (0.2-1.0); Calcium 9.6 mg/dL (8.5-10.1); Carbon Dioxide 27.1 mmol/L (21.0-32.0); Chloride 99 mmol/L (98-107); Estimated GFR (African America >60 (>=60 mL/min/1.73m^2); Estimated GFR (Non-African Ame >60 (>=60 mL/min/1.73m^2); Glucose 123 mg/dL (74-106); Potassium 3.4 mmol/L (3.5-5.1); Sodium 139 mmol/L (136-145); Total Protein 7.7 g/dL (6.4-8.2)
[2024-05-05 16:41] LABS: Lactate/Lactic Acid 1.7 mmol/L (0.4-2.0)
[2024-05-05] MEDS: CEFTRIAXONE 2,000 MG in 0.9 % SODIUM CHLORIDE 100 ML 200 MG IV (17:58)
== END 2024-05-05 18:33 | disposition home or self-care (01) ==
PROVIDERS: Physician Assistant; Emergency Provider Emergency Medicine; PCP Family Medicine
DX: N12 Tubulo-interstitial nephritis, not specified as acute or chronic (principal); R10.9 Unspecified abdominal pain; Z87.442 Personal history of urinary calculi; Z90.49 Acquired absence of other specified parts of digestive tract; G43.909 Migraine, unspecified, not intractable, without status migrainosus
CPT/HCPCS: 36415; 74176; 80053; 81001; 83605; 84703; 85025; 87086; 87150; 96365; 96375; 99285; J0696; J1171; J1885; J2405